=== PATIENT | male | born 1965 | race Caucasian/White ===

== ENCOUNTER → 2017-12-28 08:55 | Outpatient (CLI) | payer MEDICARE, SELFPAY ==
[2017-12-28] VITALS (10 sets, daily range): BP systolic 136–157; BP diastolic 55–94; PULSE 94–104; RESP 11–20; O2SAT 92–97; BMI 31.3
--- NOTE | 2017-12-28 | LUNB_PTH ---
PATIENT: PATIENCE DEVINE LOC: CT U#:[id number] AGE/SX: 60/M ROOM: RE12/28/[address]: Dr. Zurdo Esparza MD : 1965 BED: DIS: SPEC #: [id number] RECD: 12/28/17 11:14 STATUS: COLUMBA LUBIN #: [id number] CHARITY: 12/28/17 00:[address]: Zurdo Esparza DEPT: SURGICAL PATHOLOGY RECD BY: Lito Waddell Tissues: Lung, NOS Procedures: Surgery Specimen Level IV Diff Quik Stain (control) HEADER OPERATION: CT guided left lung biopsy PRE-OP DIAGNOSIS: TARIK lung mass TISSUE SUBMITTED: 20 gauge core x3 MICROSCOPIC DIAGNOSIS Left upper lobe lung mass, CT guided core biopsy: Fragments of fibrous tissue with acute and chronic granulomatous inflammation. Special stains for acid fast bacilli and fungi are negative for organisms; matched controls are appropriate. 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 See comment. SJ:deborah 12/30/17 COMMENT The specimen is evaluated at the time of CT by Dr. Burns. Immediate Evaluation #1= Negative for malignant cells. Immediate Evaluation #2= Atypical cells, noted suspicious for small cell carcinoma. Atypical cells are noted only in the touch imprints prepared at time of core biopsy. Core biopsy fragments do not reveal any malignant cells. Immunohistochemistry ([id number]) supports the above diagnosis. Case has been reviewed in consultation with Dr. Holliday who concurs with the above diagnosis. IDC:AM MICROSCOPIC DESCRIPTION Slides are reviewed. GROSS DESCRIPTION Received in fixative is one container labeled with the patient's name and designated TARIK mass. The specimen consists of multiple cores of tissue ranging from 1 mm in length down to 0.5 cm in length, and they are 0.1 cm in diameter. The specimen is totally submitted in one cassette. Two touch imprints are prepared at the time of core biopsy. SAAD:deborah 12/27/17 TC:0 CPT:72824, 00186, 05982
--- NOTE | 2017-12-28 | IMM_PTH ---
PATIENT: PATIENCE DEVINE LOC: CT U#:[id number] AGE/SX: 60/M ROOM: RE12/28/[address]: Dr. Zurdo Esparza MD : 1965 BED: DIS: SPEC #: [id number] RECD: 12/29/17 11:47 STATUS: COLUMBA LUBIN #: [id number] CHARITY: 12/28/17 00:[address]: Zurdo Esparza DEPT: IMMUNOHISTOCHEMISTRY RECD BY: Sharad Ontiveros Tissues: Left upper lobe of lung, NOS Procedures: Synapto (add) RCC (add) NAPSIN A (add) CD56 (add) CHROMO (add) CK20 (add) CK8 (add) HEP PAR (add) TTF1 (add) CK7 (initial) PHYSICIAN & INSTITUTION [place] [id number] SPECIMEN INFORMATION: Tissue Source: CT guided TARIK lung biopsy Clinical Info: TARIK lung mass Specimen Number: [id number] CPT code: 05600, 46288m3 METHODOLOGY: Deparaffinized sections of prefer/formalin-fixed tissue or PAP/DQ stained slides are incubated with monoclonal/polyclonal antibodies/oligonucleotide probes. Localization is made via biotin free immunoperoxidase method. Appropriate controls are performed and reacted as expected. Results on target cell population are indicated in the following table: RESULTS: ANTIBODY / CLONE RESULT CK7 (OV-TL12/30) negative CK8 (30wicmX64) negative CK20 (KS20.8) negative CD56 (123C3.D5) negative Chromo (LK2H10) negative Synapto (polyclonal) negative TTF-1 (8G7G3/1) negative Napsin A (Rabbit Polyclonal) negative HepPar (OCh1E5) negative RCC (PN-15) negative These tests were developed and their performance characteristics determined by [facility]. They may not have been cleared or approved by the U.S. Food and Drug Administration. The FDA has determined that such clearance or approval is not necessary. INTERPRETATION: CT guided TARIK lung mass: Fragments of fibrous tissue. Negative for malignancy. SJ:stan 12/30/17
--- NOTE | 2017-12-28 09:14 | CT_ITS ---
PROCEDURE: CT GUIDED CORE NEEDLE BIOPSY OF A left apical LUNG LESION INDICATION: Male, 52 years old. Mass in the apical aspect of the left upper lobe. PHYSICIAN: Dr. Geovani BINGHAM CONSENT: Written informed consent was obtained having explained the risks, benefits and alternatives in detail with the patient who accepted the risks and agreed to proceed. Laboratory review and clinical assessment was performed. CONSCIOUS SEDATION PROTOCOL: The Drugs used were: 2 mg Versed, IV., and 100 mcg Fentanyl, IV. The sedation time was: 21 minutes. Conscious sedation was started at 10:46 AM and terminated at 10:47 AM. The conscious sedation protocol was independently monitored. RADIATION DOSAGE (If Supplied By Facility): CTDIvol = ( 17 ) mGy, DLP = ( 418.02 ) mGycm Individualized dose optimization techniques were used for this CT. TECHNIQUE: The patient was placed in the prone position. A noncontrast CT was performed to localize the lesion in the left lung apex . The skin surface was prepped and draped in a sterile fashion. 1% lidocaine was used for local anesthesia. Using CT guidance, a 19-gauge coaxial biopsy device was advanced to the periphery of the lesion. A total of 4 core specimens were obtained. The specimens were placed in a formalin solution. A post procedure CT demonstrated no adverse sequelae or pneumothorax. The patient tolerated the procedure well without adverse event. A negative biopsy does not exclude malignancy. Further imaging or clinical followup based on patient condition and degree of clinical suspicion for malignancy. Suggest rebiopsy, if biopsy results do not match with clinical scenario. CT/Biopsy/Inj or Needle Placement IMPRESSION: 1. CT directed core needle biopsy of the left apical pulmonary lesion using CT image guidance with image documentation as described. Pathology results are pending. 2. Conscious Sedation protocol utilized with independent monitoring. Electronically Signed: Baljinder Olivo MD at 11:18 EDT Tel [phone], Service support ,
[2017-12-28 09:32] LABS: Platelet Count 527 K/mm3 (150-450)
[2017-12-28 09:41] LABS: Partial Thromboplast Time 33.2 Seconds (24.1-36.2)
--- NOTE | 2017-12-28 10:44 | RAD_ITS ---
STUDY: X-RAY CHEST REASON FOR EXAM: Male, 52 years old. Immediate post left lung biopsy radiograph. TECHNIQUE: AP inspiration expiration views. COMPARISON: Comparison is made with prior study dated 08/17/2016. FINDINGS: The patient is status post left apical lung biopsy. There is no evidence of pneumothorax. Persistent mass is seen in the left apex. RAD/Chest Insp/Exp 2 View IMPRESSION: No evidence of pneumothorax on the immediate post left lung biopsy radiograph. Electronically Signed: Baljinder Olivo MD at 11:30 EDT Tel [phone], Service support ,
--- NOTE | 2017-12-28 12:50 | RAD_ITS ---
STUDY: X-RAY CHEST REASON FOR EXAM: Male, 52 years old. Lower post left lung biopsy radiograph. TECHNIQUE: AP inspiration and expiration views were obtained. COMPARISON: Comparison is made with prior study done earlier today. FINDINGS: There is no evidence of pneumothorax on the delayed post left lung biopsy. Left apical mass. RAD/Chest Insp/Exp 2 View IMPRESSION: No evidence of pneumothorax on the 2 hour delayed post left lung biopsy radiograph. Electronically Signed: Baljinder lOivo MD at 14:14 EDT Tel [phone], Service support ,
== END ==
PROVIDERS: Family Provider Internal Medicine; PCP Internal Medicine; Visit Provider Internal Medicine
DX: R91.8 Other nonspecific abnormal finding of lung field (principal); R07.89 Other chest pain; E11.9 Type 2 diabetes mellitus without complications; I10 Essential (primary) hypertension
CPT/HCPCS: 32405; 36415; 71046; 77012; 85049; 85610; 85730; 88305; 88341; 88342; 99156; 99157; J7040; A4216

== ENCOUNTER → 2018-05-23 12:13 | Outpatient (CLI) | payer MEDICARE, SELFPAY ==
[2017-12-28 10:10] VITALS: BMI 31.3
[2018-05-23 12:27] LABS: Absolute Lymphocyte Count 0.38 X10^3/ul (0.83-4.51); Absolute Neutrophil Count 4.8 X10^3/uL (2.0-7.7); Basophil# 0.04 X10^3/uL; Basophil% 0.7 % (0-1); Eosinophil# 0.18 X10^3/uL; Eosinophils% 3.1 % (0-5); Hematocrit 33.9 % (40-54); Hemoglobin 11.2 g/dl (13.0-16.5); Lymphocyte # 0.38 X10^3/ul (4.0); Lymphocyte % 6.5 % (19-41); Mean Corpuscular Hgb 29.1 pg (27.0-32.0); Mean Corpuscular Volume 88.1 fL (80-94); Monocyte% 8.5 % (0-10); Neutrophil # 4.76 X10^3/uL (2.7-7.7); Neutrophil % 80.9 % (47-70); Platelet Count 307 K/mm3 (150-450); RBC Distribution Width CV 14.5 % (11.6-14.6); RBC Distribution Width SD 44.6 fl (35.1-43.9); Red Blood Count 3.85 M/mm3 (4.6-6.2); White Blood Count 5.9 K/mm3 (4.4-11.0)
[2018-05-23 12:28] LABS: Differential Indicated SCAN CRITERIA MET; POSITIVE COUNT NO; POSITIVE DIFFERENTIAL YES; POSITIVE MORPHOLOGY NO
[2018-05-23 12:59] LABS: Toxic Granulation RARE
== END ==
PROVIDERS: PCP Internal Medicine; Visit Provider Internal Medicine Hematology & Oncology
DX: C34.92 Malignant neoplasm of unspecified part of left bronchus or lung (principal)
CPT/HCPCS: 85025

== ENCOUNTER → 2019-01-25 | Outpatient (CLI) | payer MEDICARE, SELFPAY ==
[2019-01-25] VITALS (7 sets, daily range): BP systolic 127–154; BP diastolic 72–84; PULSE 90–107; RESP 15–16; TEMP 36.4–36.9; O2SAT 98–100; BMI 25.3
== END | disposition home or self-care (01) ==
LOC: MEDOUTP 08:11
PROVIDERS: Family Provider Internal Medicine; PCP Internal Medicine; Referring Provider Internal Medicine Hematology & Oncology; Visit Provider Internal Medicine Hematology & Oncology
DX: Z51.89 Encounter for other specified aftercare (principal); C34.92 Malignant neoplasm of unspecified part of left bronchus or lung; D64.81 Anemia due to antineoplastic chemotherapy
CPT/HCPCS: 36430; 86850; 86900; 86920; 86922; J7040; P9016; A4216

== ENCOUNTER 2019-08-25 11:08 | Emergency (ER) | payer MEDICARE, SELFPAY ==
[2019-01-25 08:28] VITALS: BMI 25.3
[2019-08-25 11:12] VITALS: BP 113/69; PULSE 109; RESP 18; TEMP 36.4; O2SAT 99; BMI 27.8
--- NOTE | 2019-08-25 12:13 | EKG12_ITS ---
Test Reason : SYNCOPE Blood Pressure : / mmHG Vent. Rate : 092 BPM Atrial Rate : 092 BPM P-R Int : 168 ms QRS Dur : 084 ms QT Int : 380 ms P-R-T Axes : 032 064 065 degrees QTc Int : 469 ms Normal sinus rhythm Normal ECG Confirmed by MIRIAN BINGHAM, TAMMI ([id number]), legal editor REED FLORES ([id number]) on 08/28/2019 2:04:52 PM Referred By: KADI Confirmed By:ISA VELA MD
--- NOTE | 2019-08-25 12:31 | CT_ITS ---
STUDY: CT CERVICAL SPINE WITHOUT CONTRAST REASON FOR EXAM: Male, 54 years old. MULTIPLE SYNCOPAL EPISODES/HX LUNG CA/RT RIB AND NECK PAIN RADIATION DOSAGE (If Supplied By Facility): CTDIvol = ( 26.05 ) mGy, DLP = ( 469.86 ) mGycm TECHNIQUE: High resolution transaxial imaging was performed without contrast material. Sagittal and coronal images were reconstructed. Individualized dose optimization techniques were used for this CT. COMPARISON: None FINDINGS: Normal craniovertebral junction. Normal anterior atlantoaxial articulation. Normal odontoid process. There is straightening of the normal cervical lordosis. Normal vertebral bodies and posterior osseous elements. C2-3: Normal endplates. Normal disc height and morphology. Normal central canal and intervertebral neuroforamina. C3-4: Normal endplates. Normal disc height and morphology. Normal central canal and intervertebral neuroforamina. C4-5: Marked degree of disc space narrowing with spondylosis. Uncovertebral arthrosis. Mild degree of central canal stenosis due to the posterior spondylosis worse on the right side with the bilateral neural foraminal stenosis worse on the right side. C5-6: Marked degree of disc space narrowing and spondylosis. Uncovertebral arthrosis. Mild degree of bilateral neural foraminal stenosis. C6-7: Normal endplates. Normal disc height and morphology. Normal central canal and intervertebral neuroforamina. C7-T1: Normal endplates. Normal disc height and morphology. Normal central canal and intervertebral neuroforamina. Atherosclerotic calcification of the carotid bifurcations bilaterally. Bullous changes in the right upper lobe. Soft tissue prominence in the left upper lobe. CT/Spine Cervical without Contras IMPRESSION: Multilevel degenerative changes, as described above. Electronically Signed: Baljinder Olivo, at 13:26 EST , Service support ,
--- NOTE | 2019-08-25 12:31 | CT_ITS ---
STUDY: CT BRAIN WITHOUT CONTRAST REASON FOR EXAM: Male, 54 years old. MULTIPLE SYNCOPAL EPISODES/HX LUNG CA/RT RIB AND NECK PAIN RADIATION DOSAGE (If Supplied By Facility): CTDIvol = ( 44.99 ) mGy, DLP = ( 829.85 ) mGycm TECHNIQUE: Transaxial CT imaging of the brain was performed without administration of intravenous contrast material. Individualized dose optimization techniques were used for this CT. COMPARISON: No relevant priors. FINDINGS: Normal soft tissue structures. Normal calvarium. There is mild cerebral atrophy with widening of the extra-axial spaces and ventricular dilatation. There are areas of decreased attenuation within the white matter tracts of the supratentorial brain, consistent with microvascular disease changes. Tiny lacuna is seen in the posterior limb of the left internal capsule. Normal brainstem. Normal cerebellum. There is no intracranial hemorrhage. There are no findings of an acute ischemic infarction. Mild degree of mucosal thickening of the ethmoid sinuses slightly more prominent along the posterior aspect of the left ethmoid sinus. CT/Brain/Head without Contrast IMPRESSION: Chronic involutional changes of the brain. Tiny lacunar is seen in the posterior limb of the left internal capsule. Electronically Signed: Baljinder Olivo, at 13:25 EST , Service support ,
--- NOTE | 2019-08-25 12:31 | CT_ITS ---
STUDY: CTA CHEST REASON FOR EXAM: Male, 54 years old. Multiple syncopal episodes. Hx of lung cancer. Rt rib and neck pain RADIATION DOSAGE (If Supplied By Facility): CTDIvol = ( 14.12 ) mGy, DLP = ( 1356.43 ) mGycm TECHNIQUE: The examination was performed with the intravenous administration of [id number] 100ml. Post-processing of the angiographic images was performed, with multiplanar reformation and 3D reconstruction. Individualized dose optimization techniques were used for this CT. COMPARISON: None. FINDINGS: Normal enhancement of the main pulmonary artery and right and left pulmonary arteries. Normal enhancement of the bilateral peripheral pulmonary arteries. There is no demonstrated pulmonary embolism. There is atherosclerotic calcification of the aortic arch with tortuosity. There is no demonstrated aortic dissection. Minimal anterior pericardial thickening. Normal mediastinum. Normal hilar regions. Normal visualized trachea and bronchi. Emphysematous changes seen in the right upper lobe. There is evidence of dense inhomogeneous consolidation in the right upper lobe. Cystic spaces are seen suggestive of bronchiectasis. With the patient''s history of lung cancer, this may represent post radiation changes with possible recurrence in the left upper lobe. Tiny right pleural effusion. Normal chest wall structures. There are degenerative changes of thoracic spine. Normal visualized upper abdomen. 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 Mild degree of emphysematous changes. Electronically Signed: Baljinder Olivo, at 13:43 EST , Service support ,
[2019-08-25 12:34] LABS: Absolute Lymphocyte Count 0.43 X10^3/uL (0.83-4.51); Absolute Neutrophil Count 3.9 X10^3/uL (2.0-7.7); Basophil# 0.02 X10^3/uL; Basophil% 0.4 % (0-1); Eosinophil# 0.04 X10^3/uL; Eosinophils% 0.8 % (0-5); Hematocrit 32.4 % (40-54); Lymphocyte # 0.43 X10^3/ul (4.0); Lymphocyte % 8.1 % (19-41); Mean Corpuscular Hgb 36.4 pg (27.0-32.0); Mean Corpuscular Volume 107.3 fL (80-94); Mean Platelet Vol. 10.8 fl (6.2-12.0); Monocyte# 0.73 X10^3/uL; Monocyte% 13.8 % (0-10); NRBC Flagged by Analyzer 0 % (0-5); Neutrophil # 3.85 X10^3/uL (2.7-7.7); Neutrophil % 72.6 % (47-70); POSITIVE DIFFERENTIAL YES; Platelet Count 251 K/mm3 (150-450); RBC Distribution Width CV 15.4 % (11.6-14.6); RBC Distribution Width SD 59.1 fl (35.1-43.9); Red Blood Count 3.02 M/mm3 (4.6-6.2); White Blood Count 5.3 K/mm3 (4.4-11.0)
[2019-08-25 12:35] LABS: Differential Indicated SCAN CRITERIA MET
--- NOTE | 2019-08-25 12:36 | CT_ITS ---
STUDY: CT ABDOMEN AND PELVIS WITHOUT CONTRAST REASON FOR EXAM: Male, 54 years old. Multiple syncopal episodes. Hx of lung cancer. Rt rib and neck pain RADIATION DOSAGE (If Supplied By Facility): CTDIvol = ( 14.12 ) mGy, DLP = ( 1356.43 ) mGycm TECHNIQUE: Transaxial images were obtained from the dome of the diaphragm to the symphysis pubis without oral contrast, and without intravenous contrast. Sagittal and coronal images were reconstructed. Individualized dose optimization techniques were used for this CT. COMPARISON: None. FINDINGS: Minimal degree of increased markings at the right lung base suggestive of a possible atelectasis. Minimal anterior pericardial thickening. Normal liver. Normal gallbladder and extrahepatic biliary system. Normal spleen. Normal pancreas. Normal bilateral adrenal glands. Normal right kidney. There is a 1 cm cyst in the anterior midportion of the left kidney. Normal visualized stomach. Normal small intestine. Mildly distended fluid-filled small bowel loops in the center right half of the abdomen with the increased markings in the root of the mesentery. Localized inflammation should be ruled out. The appendix is visualized and appears normal. There is diffuse atherosclerotic calcification of the abdominal aorta and its major visceral branches, without a demonstrated aneurysm. Normal inferior vena cava. There is borderline retroperitoneal lymphadenopathy with enlarged nodes no greater than 10mm in the short axis diameter. There is a markedly distended urinary bladder. Minimal amount of fluid is seen in the right hemipelvis. There is a small umbilical hernia containing fat. Small right inguinal hernia containing fat. There are mild degenerative changes of the visualized lumbar spine. CT/Abdomen/Pelvis W IV Cont ONLY IMPRESSION: Nonspecific increased markings in the root of the mesentery with the mildly fluid distended small bowel loops in the center right half of the abdomen. Localized inflammatory changes to be ruled out. Markedly distended urinary bladder. Electronically Signed: Baljinder Olivo, at 13:39 EST , Service support ,
--- NOTE | 2019-08-25 12:37 | ED.VIS.GEN ---
History of Present Illness Chief Complaint: Syncope Informant: Patient Narrative: Patient presents to the emergency department after being seen at urgent care and referred here. He had a syncopal episode on Wednesday. He went to his doctor is felt to be orthostatic hypotension as he has had episodes like this in the past. He notes pain in the low back pain in the right side of his neck right anterior chest. He also notes bilateral abdominal side pain. That is worse with movement. No hematuria. No vomiting. He does not really remember what happened but states that he was going to the kitchen and fell hitting the chair. He is currently undergoing chemotherapy treatment every [address] Harper. Last treatment was about 1.5 weeks ago. He denies being on a blood thinner. No history of pulmonary embolism. Past Medical History - Allergies and Home Meds Allergies/Adverse Reactions: Allergies No Known Allergies Allergy (Verified 08/25/19 11:09) Primary Care Physician: Zurdo Esparza MD [Primary Care Provider] - Smoking Status: Current every day smoker Review of Systems General: Denies: Chills, Fever, Sweats Eyes: Denies: Visual changes - bilaterally, Diplopia ENT: Denies: Rhinorrhea, Sore throat Cardiovascular: Reports: Chest pain, - - Syncope . Denies: Palpitations Respiratory: Denies: Dyspnea, Cough, Dyspnea on exertion Gastrointestinal: Reports: Abdominal pain. Denies: Nausea, Vomiting, Diarrhea, Melena, Hematochezia Genitourinary: Denies: Dysuria, Hematuria, Frequency Musculoskeletal: Reports: Neck pain, Back pain. Denies: Extremity Pain Skin: Denies: Rash, Wounds Neurological: Denies: Headache, Weakness, Numbness Physical Exam Vital Signs/Narrative: Vital Signs Temp Pulse Resp BP Pulse Ox 08/25/19 11:12 97.5 F L 109 H 18 113/69 99 General: Well nourished, Well developed, No Acute Distress Head: Normocephalic, Atraumatic Eyes: Perrl, EOMI ENT: Moist mucous membranes, No rhinorrhea Neck: Supple, - - Patient has tenderness palpation over the right aspect of his neck to the midline. No symptoms on the left. Cardiovascular: Regular rate, No murmurs, Tachycardia Respiratory: No distress, CTA bilaterally, Chest tenderness - Right anterior chest wall is tender to palpation. No crepitance. Abdomen: Soft, Nondistended, Normal bowel sounds, Tender - Mild tenderness palpation over the right and left lateral mid axillary abdominal wall Back: Normal Inspection, - - Patient has both midline and paraspinal musculature tenderness in the upper lumbar region Extremities: Nontender, No edema Skin: Normal color, No rash Neurological: Alert, Oriented x3, Cranial nerves II-XII grossly intact, Normal Strength, Normal Sensation Psychological: Normal affect, Normal Mood Diagnostic/Tx/Re-eval - EKG Initial EKG Interpretation: Sinus Rhythm - EKG demonstrates a normal sinus rhythm at a rate of 92. There is no ectopy. No concerning features of ACS. - Medical Decision Making Basic labs were negative. CT of the head and neck did not demonstrate any acute process. CTA chest does not demonstrate any pulmonary embolism or obvious rib fracture. Please see radiologist read for details. CT the abdomen pelvis demonstrates an L1 compression fracture. As this is where the patient hurts after his fall think this most likely acute. See the radiologist read for details. As he is otherwise eating and drinking fine his labs look good I do not think that there is any acute intra-abdominal process going. The patient will receive a dose of Toradol here. I will write for him to have Valium as a muscle relaxant and pain medication at home. Follow-up with primary care. ED Disposition - Plan for ED Patient: Disposition: Home or Assisted Living Diagnosis: Cervical muscle strain, Chest wall contusion, Compression fracture of L1 lumbar vertebra Instructions: FRACTURE, Vertebral Compression Prescriptions: Oxycodone HCl/Acetaminophen [Percocet 5/325] 1 tablet PO Q6H PRN PRN 3 Days #12 tablet PRN Reason: Pain Transmission Status: Received by [id number] Diazepam [Valium] 5 mg PO Q8 PRN #15 tablet PRN Reason: Muscle Spasm Transmission Status: Received by [id number] Referrals: Zurdo Esparza MD [Primary Care Provider] - 1 Week
[2019-08-25 12:47] LABS: ALB/GLOB Ratio 0.5 RATIO (0.9-2.4); AST(SGOT) 20 U/L (15-37); Alanine Aminotransfer ALT/SGPT 19 U/L (16-61); Albumin, Serum 2.7 g/dL (3.2-5.0); Alkaline Phosphatase 105 U/L (45-117); Anion Gap 7 (5-15); BUN 7 mg/dL (7-18); Calcium,Total 8.5 mg/dL (8.5-10.1); Chloride 103 mmol/L (98-107); Creatinine, Serum 1.17 mg/dL (0.70-1.30); EST Glomerular Filtration Rate 68 mL/min (>60); Est Glom Filt Rate - Afr Amer 83 mL/min (>60); Estimated Creatinine Clearance 65.91 ml/min; Glucose 117 mg/dL (74-106); Potassium 3.9 mmol/L (3.5-5.1); Protein, Total 7.7 g/dL (6.4-8.2); Sodium Level 135 mmol/L (136-145)
[2019-08-25 15:00] VITALS: BP 116/77; PULSE 98; RESP 16; O2SAT 94
[2019-08-25] MEDS: Ketorolac 60 MG/2 ML Vial IM (15:33)
[2019-08-25 15:36] VITALS: BP 105/74; PULSE 102; RESP 20; O2SAT 95
== END 2019-08-25 16:08 | disposition home or self-care (01) ==
PROVIDERS: Emergency Provider Emergency Medicine; PCP Internal Medicine
DX: S16.1XXA Strain of muscle, fascia and tendon at neck level, initial encounter (principal); S20.211A Contusion of right front wall of thorax, initial encounter; S32.019A Unspecified fracture of first lumbar vertebra, initial encounter for closed fracture; R55 Syncope and collapse; W19.XXXA Unspecified fall, initial encounter; Y93.9 Activity, unspecified; Y92.9 Unspecified place or not applicable; Z79.899 Other long term (current) drug therapy; F17.200 Nicotine dependence, unspecified, uncomplicated
CPT/HCPCS: 70450; 71275; 72125; 74177; 80053; 84484; 85025; 93005; 96372; 99284; Q9967; A4216

== ENCOUNTER 2019-10-09 10:27 | Inpatient (IN) | payer MEDICARE, MEDICAID, SELFPAY ==
[2019-10-09] VITALS (25 sets, daily range): BP systolic 97–132; BP diastolic 60–83; PULSE 95–119; RESP 16–28; TEMP 36.3–37.1; O2SAT 90–100; BMI 26.7; BMI 26.4
--- NOTE | 2019-10-09 10:39 | EKG12_ITS ---
Test Reason : SYNCOPE Blood Pressure : / mmHG Vent. Rate : 099 BPM Atrial Rate : 099 BPM P-R Int : 160 ms QRS Dur : 074 ms QT Int : 408 ms P-R-T Axes : 028 071 076 degrees QTc Int : 523 ms Normal sinus rhythm Low voltage QRS ( limb leads) Nonspecific ST abnormality Prolonged QT Abnormal ECG Confirmed by ARTUR BINGHAM, LELA ([id number]), clinical editor FAVIO WADE ([id number]) on 10/10/2019 1:26:44 PM Referred By: REBECCA Confirmed By:LELA SIDDIQUI MD
--- NOTE | 2019-10-09 10:39 | CT_ITS ---
STUDY: CT BRAIN WITHOUT CONTRAST REASON FOR EXAM: Male, 54 years old. PT STATED FALL TODAY RADIATION DOSAGE (If Supplied By Facility): CTDIvol = ( 60.81 ) mGy, DLP = ( 1089.89 ) mGycm TECHNIQUE: Transaxial CT imaging of the brain was performed without administration of intravenous contrast material. Individualized dose optimization techniques were used for this CT. COMPARISON: Comparison is made with prior study dated August 25, 2019. FINDINGS: Normal soft tissue structures. Normal calvarium. There is mild cerebral atrophy with widening of the extra-axial spaces and ventricular dilatation. There are areas of decreased attenuation within the white matter tracts of the supratentorial brain, consistent with microvascular disease changes. Stable tiny lacunae in the posterior limb of the left internal capsule. Normal brainstem. Normal cerebellum. There is no intracranial hemorrhage. There are no findings of an acute ischemic infarction. Mucosal thickening of the lateral aspects of the maxillary sinuses bilaterally as well as the posterior left ethmoid sinus. CT/Brain/Head without Contrast IMPRESSION: Chronic involutional changes of the brain. Stable examination. Electronically Signed: Baljinder Olivo, at 11:34 EDT , Service support ,
--- NOTE | 2019-10-09 10:40 | RAD_ITS ---
STUDY: X-RAY CHEST REASON FOR EXAM: Male, 54 years old. Passed out while standing today, no warning. Right hip pain with slight shortening and rotation TECHNIQUE: Single AP portable view of the chest. COMPARISON: None. FINDINGS: EKG electrodes are seen. Consolidation in the left lung apex. This may represent either pneumonic infiltration versus mass lesion. Correlation with a CT scan is recommended. There is no demonstrated pleural abnormality. Normal size heart. Normal mediastinum and [place]. Normal visualized pulmonary arteries. Normal visualized aortic arch and descending thoracic aorta. There are diffuse degenerative changes of the visualized thoracic spine. Normal visualized ribs, clavicles, and shoulders. There is no demonstrated abnormality of the visualized soft tissue structures of the upper abdomen. RAD/Chest 1 View (Portable) IMPRESSION: Consolidation in the left apex. This may represent either pneumonic infiltration versus a mass lesion. CT scan is recommended. Electronically Signed: Baljinder Olivo, at 11:40 EDT , Service support ,
--- NOTE | 2019-10-09 10:40 | RAD_ITS ---
STUDY: X-RAY - PELVIS AND RIGHT HIP REASON FOR EXAM: Male, 54 years old. Passed out while standing today, no warning. Right hip pain with slight shortening and rotation TECHNIQUE: 3 views of the pelvis and hip. COMPARISON: None. FINDINGS: There is a non-specific bowel gas pattern. Normal visualized soft tissue structures. Normal bilateral iliac wings, sacroiliac joints and visualized sacrum. Normal bilateral superior and inferior pubic rami. Normal pubic symphysis. Normal bilateral ischial tuberosities. Transverse right basilar cervical fracture of the right femoral neck with cephalic migration of the distal femoral component. RAD/HIP, UNI W/ Pelvis 2-3 Views IMPRESSION: Transverse fracture of the basilar cervical region of the right femoral neck with cephalic migration of the distal fracture fragment. Electronically Signed: Baljinder Olivo, at 11:39 EDT , Service support ,
--- NOTE | 2019-10-09 10:43 | ED.DCSUM_ITS ---
History of Present Illness Chief Complaint: Syncope Informant: Patient Onset: Today Context: Sudden Onset Timing: Continuous Current Severity: Moderate Maximum Severity: Moderate Narrative: The patient is a 54-year-old male with medical history significant for smoking, active lung cancer, diabetes, and behavioral issues who presents to the emergency department after syncopal episode. Patient states he has a history of recurrent syncope. He states that he was getting up out of his chair quickly. He was walking across his living room and then passed out. He states normally, he ambulates with a cane or walker but was not using it. He fell to the ground landing on his right hip. He does not think he struck his head. He is complaining of some pain in his low back and in his right hip. He was unable to get himself up after the fall. He is not on anticoagulants. Prior similar symptoms: Yes Recent Illness/Hospitalization: Yes Past Medical History - Allergies and Home Meds Allergies/Adverse Reactions: Allergies No Known Allergies Allergy (Verified 10/09/19 10:36) Prior records reviewed: Yes Past Medical History: - - lung ca, dm, htn, compression fracture l1 Surgical History: noncontributory Smoking Status: Current every day smoker Review of Systems General: Denies: Chills, Fever, Sweats Eyes: Denies: Visual changes - bilaterally, Diplopia ENT: Denies: Rhinorrhea, Sore throat Cardiovascular: Denies: Chest pain, Palpitations Respiratory: Denies: Dyspnea, Cough, Dyspnea on exertion Gastrointestinal: Denies: Abdominal pain, Nausea, Vomiting, Diarrhea, Melena, Hematochezia Genitourinary: Denies: Dysuria, Hematuria, Frequency Musculoskeletal: Reports: Back pain. Denies: Extremity Pain Skin: Denies: Rash, Wounds Neurological: Reports: Weakness. Denies: Headache, Numbness Psych: Denies: Depression Endocrine: Denies: Polyuria Physical Exam Vital Signs/Narrative: Vital Signs Temp Pulse Resp BP Pulse Ox 10/09/19 10:28 98.7 F 98 17 98/62 95 Inital Vital Signs reviewed: Yes General: Well nourished, Well developed, No Acute Distress Head: Normocephalic, Atraumatic Eyes: Perrl, EOMI ENT: Moist mucous membranes, No rhinorrhea Neck: Supple, Nontender Cardiovascular: Regular rate, Regular rhythm, No murmurs Respiratory: No distress, CTA bilaterally, Chest nontender Abdomen: Soft, Nontender, Nondistended, Normal bowel sounds Back: Normal Inspection Extremities: No edema, Tenderness Skin: Normal color, No rash Neurological: Alert, Oriented x3, Cranial nerves II-XII grossly intact, Normal Strength, Normal Sensation Psychological: Normal affect, Normal Mood Diagnostic/Tx/Re-eval Clinical Impression(s) from Imaging Studies Brain CT 10/09/19 10:39 IMPRESSION: Chronic involutional changes of the brain. Stable examination. Electronically Signed: Baljinder Olivo, at 11:34 EDT , Service support , Chest X-Ray 10/09/19 10:40 IMPRESSION: Consolidation in the left apex. This may represent either pneumonic infiltration versus a mass lesion. CT scan is recommended. Electronically Signed: Baljinder Olivo, at 11:40 EDT , Service support , Hip/Pelvis X-Ray 10/09/19 10:40 IMPRESSION: Transverse fracture of the basilar cervical region of the right femoral neck with cephalic migration of the distal fracture fragment. Electronically Signed: Baljinder Olivo, at 11:39 EDT , Service support , Abnormal Lab Results 10/09/19 10/09/19 10/09/19 10:54 10:54 10:54 WBC Cancelled Corrected WBC Cancelled RBC Cancelled Hgb Cancelled Hct Cancelled MCV Cancelled MCH Cancelled MCHC Cancelled RDW Std Deviation Cancelled RDW Coeff of Sophie Cancelled Plt Count Cancelled MPV Cancelled Immature Gran % (Auto) Cancelled Neut % (Auto) Cancelled Lymph % (Auto) Cancelled Brown % (Auto) Cancelled Eos % (Auto) Cancelled Baso % (Auto) Cancelled Absolute Neuts (auto) Cancelled Absolute Lymphs (auto) Cancelled Total Counted Cancelled Neutrophils % (Manual) Cancelled Band Neutrophils % Cancelled Lymphocytes % (Manual) Cancelled Monocytes % (Manual) Cancelled Eosinophils % (Manual) Cancelled Basophils % (Manual) Cancelled Metamyelocytes % Cancelled Myelocytes % Cancelled Promyelocytes % Cancelled Blast Cells % Cancelled Plasma Cell % (Manual) Cancelled Other Cells % Cancelled Nucleated RBC % Cancelled Nucleated RBCs/100 WBC Cancelled Differential Comment Cancelled Diff Path Review Cancelled Hypersegmented Neuts Cancelled Atypical Lymphocytes Cancelled Reactive Lymphocytes Cancelled Smudge Cells Cancelled Toxic Granulation Cancelled Toxic Vacuolation Cancelled Dohle Bodies Cancelled Roxana Rods Cancelled Platelet Estimate Cancelled Plt Morphology Comment Cancelled RBC Morphology Cancelled Polychromasia Cancelled Hypochromasia Cancelled Poikilocytosis Cancelled Basophilic Stippling Cancelled Anisocytosis Cancelled Microcytosis Cancelled Macrocytosis Cancelled Spherocytes Cancelled Sickle Cells Cancelled Target Cells Cancelled Tear Drop Cells Cancelled Ovalocytes Cancelled Stomatocytes Cancelled Lala-[place] Bodies Cancelled Danica Cells Cancelled Bite Cells Cancelled Crenated Cell Cancelled Acanthocytes (Spur) Cancelled Rouleaux Cancelled Schistocytes Cancelled PT Cancelled INR Cancelled APTT Sodium Cancelled Potassium Cancelled Chloride Cancelled Carbon Dioxide Cancelled Anion Gap Cancelled BUN Cancelled Creatinine Cancelled Estim Creat Clear Calc Cancelled Est GFR (MDRD) Af Amer Cancelled Est GFR (MDRD) Non-Af Cancelled BUN/Creatinine Ratio Cancelled Glucose Cancelled Calcium Cancelled Total Bilirubin Cancelled AST Cancelled ALT Cancelled Alkaline Phosphatase Cancelled Troponin I Cancelled Total Protein Cancelled Albumin Cancelled Globulin Cancelled Albumin/Globulin Ratio Cancelled Blood Type Antibody Screen Crossmatch 10/09/19 10/09/19 10/09/19 10:54 12:00 12:00 WBC 5.4 Corrected WBC RBC 1.72 L Hgb 6.5 L Hct 18.6 L MCV 108.1 H MCH 37.8 H MCHC 34.9 RDW Std Deviation 61.1 H RDW Coeff of Sophie 15.7 H Plt Count 65 L MPV 11.5 Immature Gran % (Auto) 1.500 H Neut % (Auto) 86.3 H Lymph % (Auto) 5.9 L Brown % (Auto) 6.3 Eos % (Auto) 0.0 Baso % (Auto) 0.0 Absolute Neuts (auto) 4.7 Absolute Lymphs (auto) 0.32 L Total Counted Neutrophils % (Manual) Band Neutrophils % Lymphocytes % (Manual) Monocytes % (Manual) Eosinophils % (Manual) Basophils % (Manual) Metamyelocytes % Myelocytes % Promyelocytes % Blast Cells % Plasma Cell % (Manual) Other Cells % Nucleated RBC % 0 Nucleated RBCs/100 WBC Differential Comment Diff Path Review Hypersegmented Neuts Atypical Lymphocytes Reactive Lymphocytes Smudge Cells Toxic Granulation Toxic Vacuolation Dohle Bodies Roxana Rods Platelet Estimate MOD DEC Plt Morphology Comment RBC Morphology Polychromasia Hypochromasia 1+ Poikilocytosis Basophilic Stippling Anisocytosis Microcytosis Macrocytosis RARE Spherocytes Sickle Cells Target Cells Tear Drop Cells Ovalocytes Stomatocytes Lala-[place] Bodies Danica Cells Bite Cells Crenated Cell Acanthocytes (Spur) Rouleaux Schistocytes PT 15.7 H INR 1.3 APTT Cancelled Sodium Potassium Chloride Carbon Dioxide Anion Gap BUN Creatinine Estim Creat Clear Calc Est GFR (MDRD) Af Amer Est GFR (MDRD) Non-Af BUN/Creatinine Ratio Glucose Calcium Total Bilirubin AST ALT Alkaline Phosphatase Troponin I Total Protein Albumin Globulin Albumin/Globulin Ratio Blood Type Cancelled Antibody Screen Cancelled Crossmatch 10/09/19 10/09/19 10/09/19 12:00 12:00 12:20 WBC Corrected WBC RBC Hgb Hct MCV MCH MCHC RDW Std Deviation RDW Coeff of Sophie Plt Count MPV Immature Gran % (Auto) Neut % (Auto) Lymph % (Auto) Brown % (Auto) Eos % (Auto) Baso % (Auto) Absolute Neuts (auto) Absolute Lymphs (auto) Total Counted Neutrophils % (Manual) Band Neutrophils % Lymphocytes % (Manual) Monocytes % (Manual) Eosinophils % (Manual) Basophils % (Manual) Metamyelocytes % Myelocytes % Promyelocytes % Blast Cells % Plasma Cell % (Manual) Other Cells % Nucleated RBC % Nucleated RBCs/100 WBC Differential Comment Diff Path Review Hypersegmented Neuts Atypical Lymphocytes Reactive Lymphocytes Smudge Cells Toxic Granulation Toxic Vacuolation Dohle Bodies Roxana Rods Platelet Estimate Plt Morphology Comment RBC Morphology Polychromasia Hypochromasia Poikilocytosis Basophilic Stippling Anisocytosis Microcytosis Macrocytosis Spherocytes Sickle Cells Target Cells Tear Drop Cells Ovalocytes Stomatocytes Lala-[place] Bodies [place] Cells Bite Cells Crenated Cell Acanthocytes (Spur) Rouleaux Schistocytes PT INR APTT Sodium 132 L Potassium 3.1 L Chloride 102 Carbon Dioxide 20.0 L Anion Gap 10 BUN 12 Creatinine 1.55 H Estim Creat Clear Calc 49.75 Est GFR (MDRD) Af Amer 60 Est GFR (MDRD) Non-Af 49 L BUN/Creatinine Ratio 7.7 L Glucose 99 Calcium < 5.0 L* Total Bilirubin 0.20 AST 30 ALT 14 L Alkaline Phosphatase 95 Troponin I < 0.015 Total Protein 6.3 L Albumin 2.0 L Globulin 4.3 H Albumin/Globulin Ratio 0.5 L Blood Type O POSITIVE Antibody Screen NEGATIVE Crossmatch See Detail - Rhythm Strip Rhythm Strip: Sinus Rhythm Rate: 100 Ectopy: None - EKG Initial EKG Interpretation: Sinus Rhythm, No Acute Injury Pattern, Non-Specific ST Changes - Medical Decision Making The patient presents to the emergency department with syncopal episode. EKG was obtained. There was mildly prolonged QT but no evidence of acute ischemia. Patient was kept on a monitor. He did fall and strike his right hip. He does not recall hitting his head. The patient was sent for CT and images. On the way back, he did have a witnessed seizure. It lasted about 40 seconds with tonic-clonic movements. He was postictal after. Screening labs do show anemia which the patient has significant history of. There is also mild chronic kidney disease but rather significant hypocalcemia which can contribute to seizure. The patient was given Keppra, order 2 units of blood, and ordered IV calcium. The patient was discussed with Dr. Laguerre, who is on-call for Dr. Harper who agreed with plan. He was also discussed with Dr. Steven Shrestha, on-call for orthopedics. The patient was also discussed with intensive care and the hospitalist. He will be admitted at this time. Impression 1. New onset seizure 2. Symptomatic anemia 3. Hypocalcemia 4. Left upper lobe non-small cell lung carcinoma 5. Right basicervical hip fracture - Critical Care Time Critical care time (excluding procedures): 30-74 minutes, Discussing w/Patient &/or Family/Ticket Writer, Discussing w/Consultants, Arranging Admission or Transfer, Performing Direct Patient Care at Bedside ED Disposition - Plan for ED Patient:
[2019-10-09] MEDS: 0.9% Normal Saline 1,000 ML 1000 ML IV (10:49)
[2019-10-09] MEDS: fentaNYL 100 MCG/2 ML Ampul 50 MCG IV (10:55)
[2019-10-09] MEDS: Ondansetron 4 MG/2 ML Vial IV (10:55)
[2019-10-09] MEDS: levETIRAcetam IV 1,000 MG/100 ML BAG 400 MG IV (11:53)
[2019-10-09 12:35] LABS: Absolute Lymphocyte Count 0.32 X10^3/uL (0.83-4.51); Absolute Neutrophil Count 4.7 X10^3/uL (2.0-7.7); Hematocrit 18.6 % (40-54); Hemoglobin 6.5 g/dL (13.0-16.5); Lymphocyte # 0.32 X10^3/ul (4.0); Lymphocyte % 5.9 % (19-41); Mean Corp Hgb Conc 34.9 g/dL (32-36); Mean Corpuscular Hgb 37.8 pg (27.0-32.0); Mean Corpuscular Volume 108.1 fL (80-94); Mean Platelet Vol. 11.5 fl (6.2-12.0); Monocyte# 0.34 X10^3/uL; Monocyte% 6.3 % (0-10); NRBC Flagged by Analyzer 0 % (0-5); Neutrophil % 86.3 % (47-70); POSITIVE COUNT YES; POSITIVE DIFFERENTIAL YES; Platelet Count 65 K/mm3 (150-450); RBC Distribution Width CV 15.7 % (11.6-14.6); RBC Distribution Width SD 61.1 fl (35.1-43.9); Red Blood Count 1.72 M/mm3 (4.6-6.2); White Blood Count 5.4 K/mm3 (4.4-11.0)
[2019-10-09 12:36] LABS: Differential Indicated SCAN CRITERIA MET
[2019-10-09 12:41] LABS: International Normalized Ratio 1.3; Prothrombin Time (Protime)PT. 15.7 SECONDS (11.7-14.9)
[2019-10-09 12:50] LABS: Platelet Estimate MOD DEC (ADEQ)
[2019-10-09 12:51] LABS: Hypochromasia 1+; Macrocytosis RARE
[2019-10-09 12:58] LABS: ALB/GLOB Ratio 0.5 RATIO (0.9-2.4); AST(SGOT) 30 U/L (15-37); Alanine Aminotransfer ALT/SGPT 14 U/L (16-61); Alkaline Phosphatase 95 U/L (45-117); Anion Gap 10 (5-15); BUN 12 mg/dL (7-18); BUN/Creat Ratio 7.7 RATIO (10-20); Calcium,Total < 5.0 mg/dL (8.5-10.1); Chloride 102 mmol/L (98-107); Creatinine, Serum 1.55 mg/dL (0.70-1.30); EST Glomerular Filtration Rate 49 mL/min (>60); Est Glom Filt Rate - Afr Amer 60 mL/min (>60); Estimated Creatinine Clearance 49.75 ml/min; Globulin 4.3 g/dL (2.2-4.2); Glucose 99 mg/dL (74-106); Potassium 3.1 mmol/L (3.5-5.1); Protein, Total 6.3 g/dL (6.4-8.2); Sodium Level 132 mmol/L (136-145)
--- NOTE | 2019-10-09 13:45 | MRI_ITS ---
STUDY: MRI BRAIN WITH AND WITHOUT CONTRAST REASON FOR EXAM: Male, 54 years old. SEIZURE, LUNG CA -- new onset seizure with fall, fx''d hip, no head injury, currently on chemo for lung ca TECHNIQUE: Standardized multiplanar fat and water weighted pulse sequences were obtained. IV doteram 15ml was administered for the contrast portion of the examination. COMPARISON: CT of the brain October 09, 2019 FINDINGS: Mild atrophy and periventricular white matter ischemic change without evidence for acute infarct.. Normal bilateral basal ganglia. Normal thalami. There is no extra-axial fluid accumulation. Normal flow voids within the major intracranial circulation suggesting patency by spin echo criteria. Normal venous enhancement. There is no enhancing intra-axial or extra-axial abnormality. Empty sella deformity of uncertain clinical significance. Normal, infundibular stalk, optic chiasm and hypothalamus. Normal tectal plate and pineal gland. Normal midbrain, shanda and medulla. Normal cerebellum. Normal basal cisterns. Normal bilateral temporal bones. Normal bilateral internal auditory canals. No demonstrated orbital abnormality, within the constraints of a routine brain study. Mild diffuse maxillary and ethmoid sinus disease.. Normal calvarium and skull base. Normal visualized soft tissue structures. Normal visualized upper cervical spine. MRI/Brain W/WO Contrast IMPRESSION: Mild atrophy and periventricular white matter ischemic changes without evidence for acute infarct. No focal enhancing lesions to suggest metastatic disease. Electronically Signed: Tommy Francis MD at 19:43 EDT , Service support ,
--- NOTE | 2019-10-09 13:49 | HP.PCM_ITS ---
History of Present Illness Date of Admission: 10/09/19 Chief Complaint: syncope The patient is a 54 year old M who was in his normal state of health and then just went out. Patient had pain and presented to the emergency room and was found to have a right femoral neck fracture. While he was there he developed a tonic-clonic seizure and received Keppra. Patient has no known history of seizure disorder. Patient's oncologist Dr. Shade Franklin was notified and advised 2 units of packed red blood cells as patient's hemoglobin is 6.5+ an MRI of the brain. Patient was noted to have profound hypocalcemia with a calcium level less than 5. Patient received calcium gluconate. Dr. Castillo, of ICU, was contacted and advised to bring patient into the intensive care unit overnight to ensure that he remains stable. And Dr. Shrestha, of orthopedics was contacted and stated that he would be on board to do the surgery once patient is medically optimized. [] Past Medical History Medical History: Medical History (Last Updated 10/09/19 @ 13:[address] Héctor Billings, DO) DM2 (diabetes mellitus, type 2) E11.9 Non-small cell lung cancer C34.90 HTN (hypertension) I10 Allergies No Known Allergies Allergy (Verified 10/09/19 10:36) Home Medications: Ambulatory Orders Medication Instructions Recorded Atorvastatin Calcium [Lipitor] 40 mg PO QHS 12/15/16 Citalopram [Celexa] 40 mg PO DAILY 12/15/16 Ferrous Sulfate 325 mg PO DAILY@0800 12/27/17 Hydroxyzine HCl 25 mg PO BID PRN PRN 12/27/17 Folic Acid 1 mg PO DAILY 08/25/19 Pregabalin 300 mg PO BID 08/25/19 Diazepam [Valium] 5 mg PO Q8H PRN PRN 10/09/19 Levothyroxine [Synthroid] 75 mcg PO DAILY 10/09/19 Lisinopril [Zestril] 20 mg PO DAILY 10/09/19 Metformin HCl 1,000 mg PO DAILY 10/09/19 Omeprazole 40 mg PO DAILY 10/09/19 Ondansetron [Zofran] 8 mg PO Q8H PRN PRN 10/09/19 Oxycodone HCl/Acetaminophen 1 ea PO Q6H PRN PRN 10/09/19 [Oxycodone-Acetaminophen 5-325] Quetiapine Fumarate 400 mg PO QHS 10/09/19 traZODone [Desyrel] 50 mg PO QHS 10/09/19 Surgical History: noncontributory Smoking Status: Heavy Smoker (>10/day) Tobacco Use: Cigarettes Alcohol: Occasional Drugs: None - *Family History Maternal History Items: - - no lung cancer Review of Systems Constitutional: Denies: Anorexia, Chills, Fever, Night Sweats Eyes: Denies: Blurred vision, Double vision HEENT: Denies: Head Aches, Sinus Congestion, Sinus Drainage Cardiovascular: Denies: Chest Pain, Palpitations Respiratory: Denies: Cough, Shortness of breath at rest, Sputum production Gastrointestinal: Denies: Abdominal Pain, Nausea, Vomiting Genitourinary: Denies: Dysuria Musculoskeletal: Reports: Joint Pain - right hip pain. Denies: Joint Tenderness Skin: Denies: Rash, Wounds Neurological: Denies: Balance problems, Blurred vision, Double vision Hematologic/ Lymphatic: Denies: Easy Bruising, Easy Bleeding, Hx of blood clot Comment: All review of systems were negative except as mentioned above in the history of present illness and the other review of systems. VTE Information - Inpt Only VTE Present on Admission: No VTE Mechan Device Prophylaxis: SCD's VTE Pharm Prophylaxis ordered?: No Reason prophylaxis not ordered:: Medical Contraindication - Physical Exam Vitals/I&O's: Vital Signs Temp Pulse Resp BP Pulse Ox 37.1 C 105 H 16 97/64 90 10/09/19 10:28 10/09/19 13:00 10/09/19 13:00 10/09/19 13:00 10/09/19 13:00 Oxygen Flow Rate (L/min) 2 Oxygen Delivery Method Room Air Weight: 77.4 kg Body Mass Index (BMI) 26.7 Intake and Output for Last 24 Hours 10/07/19 10/08/19 10/09/19 23:59 23:59 23:59 Intake Total 1000 / 1000 Balance 1000 / 1000 General: Alert, Cooperative, No apparent distress, - - Appears much older than stated age HEENT: Atraumatic, PERRLA, EOMI, Normocephalic Oral: Moist Mucosa, Dry Mucosa Neck: No Nodes, Thyroid Normal Size and Texture Lungs: Clear to auscultation, Normal air movement, No rhonchi, No wheeze, No rales, Diminished Cardiovascular: Regular rate, Regular Rhythm, Normal S1, Normal S2, No murmurs Abdomen: Bowel Sounds Present, Soft, Non Tender, Non-Distended, No Hepato- splenomegaly Extremities: No edema, No Calf Tenderness, - - Right leg shorter than left Skin: No rashes, No breakdown Musculoskeletal: No Tenderness to Palpation of Joints or Extremities, No Muscle Wasting Neurological: Cranial nerves II-XII grossly intact, Motor Exam 5/5 strength throughout Psych/Mental Status: Normal Affect, Appropriate Laboratory Results 10/09/19 10:54: WBC Cancelled, Corrected WBC Cancelled, RBC Cancelled, Hgb Cancelled, Hct Cancelled, MCV Cancelled, MCH Cancelled, MCHC Cancelled, RDW Std Deviation Cancelled, RDW Coeff of Sophie Cancelled, Plt Count Cancelled, MPV Cancelled, Immature Gran % (Auto) Cancelled, Neut % (Auto) Cancelled, Lymph % (Auto) Cancelled, Barry % (Auto) Cancelled, Eos % (Auto) Cancelled, Baso % (Auto) Cancelled, Absolute Neuts (auto) Cancelled, Absolute Lymphs (auto) Cancelled, Total Counted Cancelled, Neutrophils % (Manual) Cancelled, Band Neutrophils % Cancelled, Lymphocytes % (Manual) Cancelled, Monocytes % (Manual) Cancelled, Eosinophils % (Manual) Cancelled, Basophils % (Manual) Cancelled, Metamyelocytes % Cancelled, Myelocytes % Cancelled, Promyelocytes % Cancelled, Blast Cells % Cancelled, Plasma Cell % (Manual) Cancelled, Other Cells % Cancelled, Nucleated RBC % Cancelled, Nucleated RBCs/100 WBC Cancelled, Differential Comment Cancelled, Diff Path Review Cancelled, Hypersegmented Neuts Cancelled, Atypical Lymphocytes Cancelled, Reactive Lymphocytes Cancelled, Smudge Cells Cancelled, Toxic Granulation Cancelled, Toxic Vacuolation Cancelled, Dohle Bodies Cancelled, Roxana Rods Cancelled, Platelet Estimate Cancelled, Plt Morphology Comment Cancelled, RBC Morphology Cancelled, Polychromasia Cancelled, Hypochromasia Cancelled, Poikilocytosis Cancelled, Basophilic Stippling Cancelled, Anisocytosis Cancelled, Microcytosis Cancelled, Macrocytosis Cancelled, Spherocytes Cancelled, Sickle Cells Cancelled, Target Cells Cancelled, Tear Drop Cells Cancelled, Ovalocytes Cancelled, Stomatocytes Cancelled, Lala-[place] Bodies Cancelled, [place] Cells Cancelled, Bite Cells Cancelled, Crenated Cell Cancelled, Acanthocytes (Spur) Cancelled, Rouleaux Cancelled, Schistocytes Cancelled 10/09/19 10:54: PT Cancelled, INR Cancelled 10/09/19 10:54: Sodium Cancelled, Potassium Cancelled, Chloride Cancelled, Carbon Dioxide Cancelled, Anion Gap Cancelled, BUN Cancelled, Creatinine Cancelled, Estim Creat Clear Calc Cancelled, Est GFR (MDRD) Af Amer Cancelled, Est GFR (MDRD) Non-Af Cancelled, BUN/Creatinine Ratio Cancelled, Glucose Cancelled, Calcium Cancelled, Total Bilirubin Cancelled, AST Cancelled, ALT Cancelled, Alkaline Phosphatase Cancelled, Troponin I Cancelled, Total Protein Cancelled, Albumin Cancelled, Globulin Cancelled, Albumin/Globulin Ratio Cancelled 10/09/19 10:54: Blood Type Cancelled, Antibody Screen Cancelled 10/09/19 12:00: PT 15.7 H, INR 1.3, APTT Cancelled 10/09/19 12:00: WBC 5.4, RBC 1.72 L, Hgb 6.5 L, Hct 18.6 L, MCV 108.1 H, MCH 37.8 H, MCHC 34.9, RDW Std Deviation 61.1 H, RDW Coeff of Sophie 15.7 H, Plt Count 65 L, MPV 11.5, Immature Gran % (Auto) 1.500 H, Neut % (Auto) 86.3 H, Lymph % (Auto) 5.9 L, Barry % (Auto) 6.3, Eos % (Auto) 0.0, Baso % (Auto) 0.0, Absolute Neuts (auto) 4.7, Absolute Lymphs (auto) 0.32 L, Nucleated RBC % 0, Platelet Estimate MOD DEC, Hypochromasia 1+, Macrocytosis RARE 10/09/19 12:00: Sodium 132 L, Potassium 3.1 L, Chloride 102, Carbon Dioxide 20.0 L, Anion Gap 10, BUN 12, Creatinine 1.55 H, Estim Creat Clear Calc 49.75, Est GFR (MDRD) Af Amer 60, Est GFR (MDRD) Non-Af 49 L, BUN/Creatinine Ratio 7.7 L, Glucose 99, Calcium < 5.0 L*, Total Bilirubin 0.20, AST 30, ALT 14 L, Alkaline Phosphatase 95, Troponin I < 0.015, Total Protein 6.3 L, Albumin 2.0 L, Globulin 4.3 H, Albumin/Globulin Ratio 0.5 L 10/09/19 12:00: Blood Type O POSITIVE, Antibody Screen NEGATIVE 10/09/19 12:20: Crossmatch See Detail Clinical Impression(s) from Imaging Studies Brain CT 10/09/19 10:39 IMPRESSION: Chronic involutional changes of the brain. Stable examination. Electronically Signed: Baljinder Geovani, at 11:34 EDT , Service support , Chest X-Ray 10/09/19 10:40 IMPRESSION: Consolidation in the left apex. This may represent either pneumonic infiltration versus a mass lesion. CT scan is recommended. Electronically Signed: Baljinder Olivo, at 11:40 EDT , Service support , Hip/Pelvis X-Ray 10/09/19 10:40 IMPRESSION: Transverse fracture of the basilar cervical region of the right femoral neck with cephalic migration of the distal fracture fragment. Electronically Signed: Baljinder Olivo, at 11:39 EDT , Service support , Current Medications Calcium Gluconate 2 gm/ (Dextrose) 120 mls @ 60 mls/hr IV X1 ONE Stop: 10/09/19 14:58 Last Admin: 10/09/19 13:18 Dose: 60 mls/hr Documented by: Levetiracetam (Keppra Oral Solution) 1,000 mg PO BID [facility] Assessment/Plan 1. New onset seizure: * Technically this is new onset but patient had a syncopal episode back in August is likely a seizure at that time. And this episode was likely attributable to seizure as well. * We will continue with the Keppra 1000 mg twice daily. * Check an MRI of the brain as well as an EEG. Then consult tele-neurology for further input once those results are back. * Etiology of seizure is unclear as it could be related with hypocalcemia or possible brain mass or some other etiology 2. Severe hypocalcemia * Patient receiving calcium gluconate 2g * will check magnesium as well as recheck calcium later on today. Replace electrolytes as appropriate. * Check 25-hydroxy vitamin D level and PTH level * pt to be admitted to ICU for closer monitor, at least overnight. 3. Right transverse fracture of the right femoral neck: * Status post fall * Bedrest until surgery can be performed * Patient will need to be more medically optimized prior to undergoing surgery * DW Dr. Shrestha who will be on consult. Tentative plan is for surgery on 10/09 around 1000, if stable. * Discussed with anesthesia, who states that once patient is medically optimized there would be no hesitation on their and for the patient to proceed with surgery. * per NSQIP, pt cleared to procedure without further work up. However, this a tool, and the above issues will need to be optimized prior to surgery. 4. Anemia, macrocytic * agree with transfusion initiated by ED * check iron, TIBC, ferritin, B12, folate, TSH 5. Hypokalemia * replace * check magnesium 6. EVERARDO * suspect prerenal * IVF * recheck 7. NSCLC * stage IV per the patient, but does not know where metastasized to * check records from Dr. Laguerre's office 8. DM2 * hold metformin * SSI 9. VTE prophylaxis: high-surgical risk. SCDs, hold chemical given anemia 10. Advanced care planning: Patient wishes to be DNR Comfort Care arrest no intubation. He is okay with rescinding the no intubation for surgery, however. Inpatient E&M: 84703 Init Hosp L3
[2019-10-09] MEDS: oxyCODONE 5 MG Tablet 10 MG PO (15:25)
[2019-10-09 16:12] LABS: Vitamin B12 1019 pg/mL (211-911); Vitamin D,25 Hydroxy 8.6 ng/mL
[2019-10-09 17:13] LABS: Ferritin 1996 ng/mL (26-388); Iron 84 ug/dL (65-175); Iron Binding Capacity,Total 131 ug/dL (250-450); Magnesium 0.4 mg/dL (1.6-2.6); PERCENT IRON SATURATION 64.1 % (15.0-55.0); Thyroid Stim Hormone (TSH) 1.71 uIU/mL (0.358-3.74)
[2019-10-09 17:21] LABS: Bedside Glucose 96 mg/dL (70-110)
[2019-10-09] MEDS: diazePAM 5 MG Tablet PO (17:41)
[2019-10-09] MEDS: fentaNYL 100 MCG/2 ML Ampul 25 MCG IV (17:50)
[2019-10-09] MEDS: Magnesium Sulfate 4gm/100mL 4 GM/100 ML IV.SOLN. IV (19:56)
[2019-10-09] MEDS: 0.9% Saline Lock 10 ML Syringe IV (19:56)
[2019-10-09 20:31] LABS: Anion Gap 8 (5-15); BUN 13 mg/dL (7-18); Calcium,Total 5.4 mg/dL (8.5-10.1); Chloride 104 mmol/L (98-107); EST Glomerular Filtration Rate 61 mL/min (>60); Est Glom Filt Rate - Afr Amer 73 mL/min (>60); Estimated Creatinine Clearance 59.32 ml/min; Glucose 120 mg/dL (74-106); Potassium 3.6 mmol/L (3.5-5.1); Sodium Level 134 mmol/L (136-145)
[2019-10-09 22:26] LABS: Bedside Glucose 123 mg/dL (70-110)
[2019-10-09] MEDS: Atorvastatin Calcium 40 MG Tablet PO (22:26)
[2019-10-09] MEDS: QUEtiapine 100 MG Tablet 400 MG PO (22:26)
[2019-10-09] MEDS: Pregabalin 75 MG Capsule 300 MG PO (22:33)
[2019-10-09] MEDS: levETIRAcetam Oral Solution 500 MG/5 ML 1000 MG PO (22:33)
[2019-10-10] VITALS (29 sets, daily range): BP systolic 93–128; BP diastolic 55–87; PULSE 90–114; RESP 10–22; TEMP 36.1–37.2; O2SAT 19–100
[2019-10-10] MEDS: 0.9% Saline Lock 10 ML Syringe IV ×4 (00:32→06:17)
[2019-10-10 02:26] LABS: Anion Gap 7 (5-15); BUN 12 mg/dL (7-18); Calcium,Total 5.3 mg/dL (8.5-10.1); Chloride 106 mmol/L (98-107); EST Glomerular Filtration Rate 82 mL/min (>60); Est Glom Filt Rate - Afr Amer 99 mL/min (>60); Estimated Creatinine Clearance 77.12 ml/min; Glucose 110 mg/dL (74-106); Potassium 3.8 mmol/L (3.5-5.1); Sodium Level 135 mmol/L (136-145)
[2019-10-10] MEDS: Cosyntropin 0.25 MG in 0.9% Normal Saline (Pres. free 1 ML 30 MG IV (05:05)
[2019-10-10 05:30] LABS: Anion Gap 7 (5-15); BUN 11 mg/dL (7-18); BUN/Creat Ratio 10.6 RATIO (10-20); Calcium,Total 6.1 mg/dL (8.5-10.1); Chloride 107 mmol/L (98-107); Creatinine, Serum 1.04 mg/dL (0.70-1.30); EST Glomerular Filtration Rate 78 mL/min (>60); Est Glom Filt Rate - Afr Amer 95 mL/min (>60); Estimated Creatinine Clearance 74.15 ml/min; Glucose 113 mg/dL (74-106); Magnesium 1.6 mg/dL (1.6-2.6); Potassium 4.2 mmol/L (3.5-5.1); Sodium Level 136 mmol/L (136-145)
[2019-10-10 06:40] LABS: Bedside Glucose 98 mg/dL (70-110)
--- NOTE | 2019-10-10 06:59 | PCM.CON.CC ---
Reason for Consult Date of Consultation: 10/10/19 Reason for Consultation: Anemia, hypocalcemia, new onset seizures History of Present Illness: The patient is a 54-year-old male, with a history as outlined below, who presented to the emergency department on October 08 following an episode of near syncope. The patient is currently being followed by Dr. Justus Harper of oncology due to a history of primary adenocarcinoma of the left lung. He is currently on maintenance therapy with Keytruda and Alimta. The patient does report that he is prescribed daily PPI therapy due to a history of GERD. He also reports the presence of chronic diarrhea but denies any hematochezia, melena or hematemesis. On presentation to the emergency department, the patient was noted to be afebrile and hemodynamically stable. Laboratory evaluation revealed no evidence of a leukocytosis. The patient was anemic with a hemoglobin of 6.5 g/dL. He was also thrombocytopenic with a platelet count of 65,000. Chemistry profile was notable for a sodium of 132, potassium of 3.1, bicarbonate of 20 and creatinine of 1.55. Calcium was low at less than 5. Magnesium was low at 0.4. Head CT revealed chronic involutional changes of the brain. Pelvis/hip x-ray revealed a transverse fracture of the basilar cervical region of the right femoral neck. While being removed from the CT scanner, the patient did experience a witnessed seizure event. The patient was noted to be postictal following the event. He was subsequently treated with Keppra, calcium and was ordered to receive 2 units of packed red blood cells. The patient was subsequently transferred to the medical intensive care unit for further management. Brain MRI obtained last evening revealed mild atrophy and periventricular white matter ischemic changes without evidence for acute infarct. There was no evidence of metastatic disease. EEG was unremarkable. Past Medical History Medical History: Medical History (Last Updated 10/09/19 @ 13:[address] Héctor Billings DO) DM2 (diabetes mellitus, type 2) E11.9 Non-small cell lung cancer C34.90 HTN (hypertension) I10 Allergies No Known Allergies Allergy (Verified 10/09/19 10:36) Home Medications: Ambulatory Orders Medication Instructions Recorded Atorvastatin Calcium [Lipitor] 40 mg PO QHS 12/15/16 Citalopram [Celexa] 40 mg PO DAILY 12/15/16 Ferrous Sulfate 325 mg PO DAILY@0800 12/27/17 Hydroxyzine HCl 25 mg PO BID PRN PRN 12/27/17 Folic Acid 1 mg PO DAILY 08/25/19 Pregabalin 300 mg PO BID 08/25/19 Diazepam [Valium] 5 mg PO Q8H PRN PRN 10/09/19 Levothyroxine [Synthroid] 75 mcg PO DAILY 10/09/19 Lisinopril [Zestril] 20 mg PO DAILY 10/09/19 Metformin HCl 1,000 mg PO DAILY 10/09/19 Omeprazole 40 mg PO DAILY 10/09/19 Ondansetron [Zofran] 8 mg PO Q8H PRN PRN 10/09/19 Oxycodone HCl/Acetaminophen 1 ea PO Q6H PRN PRN 10/09/19 [Oxycodone-Acetaminophen 5-325] Quetiapine Fumarate 400 mg PO QHS 10/09/19 traZODone [Desyrel] 50 mg PO QHS 10/09/19 Surgical History: noncontributory Smoking Status: Heavy Smoker (>10/day) Tobacco Use: Cigarettes Alcohol: Occasional Drugs: None - *Family History Maternal History Items: - - no lung cancer Review of Systems Constitutional: Reports: Fatigue. Denies: Chills, Fever Eyes: Denies: Blurred vision, Double vision HEENT: Denies: Head Aches, Sinus Congestion, Sinus Drainage Cardiovascular: Denies: Chest Pain, Palpitations Respiratory: Denies: Cough, Shortness of Breath Gastrointestinal: Reports: Diarrhea. Denies: Hematemesis, Hematochezia, Melena Genitourinary: Denies: Dysuria Musculoskeletal: Reports: Joint Pain Skin: Denies: Rash, Wounds Neurological: Reports: Balance problems, Seizures Psychiatric: Denies: Anxiety, Depression, Homicidal Ideations, Suicidal Ideations Hematologic/ Lymphatic: Reports: Anemia, Hx of blood transfusion Objective: The patient's most recent lab work, culture data and imaging studies have all been personally reviewed. - Physical Exam Vitals/I&O's: Vital Signs Temp Pulse Resp BP Pulse Ox 97.5 F L 108 H 17 96/73 96 10/10/19 01:00 10/10/19 06:00 10/10/19 06:00 10/10/19 04:00 10/10/19 06:00 Oxygen Flow Rate (L/min) 2 Oxygen Delivery Method Nasal Cannula Weight: 173 lb 8.061 oz Body Mass Index (BMI) 26.4 Intake and Output for Last 24 Hours 10/08/19 10/09/19 10/10/19 23:59 23:59 23:59 Intake Total 2720.50 / 2720.50 529 / 529 Output Total 0 / 0 1900 / 1900 Balance 2720.50 / 2720.50 -1371 / -1371 General: Alert, Cooperative, No apparent distress HEENT: Atraumatic, Normocephalic Oral: No Gingival or Mucosal Lesions/ Ulcerations Neck: Supple, No Nodes, Trachea Midline Lungs: No rhonchi, No wheeze, No rales, Diminished Cardiovascular: Regular rate, Regular Rhythm, Normal S1, Normal S2 Abdomen: Bowel Sounds Present, Soft, Non Tender Extremities: No clubbing, No cyanosis, No edema Skin: No breakdown Musculoskeletal: No Muscle Wasting Lymphatic: No Cervical, Supraclavicular, or Inguinal Adenopathy Neurological: Neuro grossly intact Psych/Mental Status: Alert and oriented to time, place, person, mood and affect Labs (Last 48 Hours) 10/09/19 10/09/19 10/09/19 10:54 10:54 10:54 WBC Cancelled Corrected WBC Cancelled RBC Cancelled Hgb Cancelled Hct Cancelled MCV Cancelled MCH Cancelled MCHC Cancelled RDW Std Deviation Cancelled RDW Coeff of Sophie Cancelled Plt Count Cancelled MPV Cancelled Immature Gran % (Auto) Cancelled Neut % (Auto) Cancelled Lymph % (Auto) Cancelled Conway % (Auto) Cancelled Eos % (Auto) Cancelled Baso % (Auto) Cancelled Absolute Neuts (auto) Cancelled Absolute Lymphs (auto) Cancelled Total Counted Cancelled Neutrophils % (Manual) Cancelled Band Neutrophils % Cancelled Lymphocytes % (Manual) Cancelled Monocytes % (Manual) Cancelled Eosinophils % (Manual) Cancelled Basophils % (Manual) Cancelled Metamyelocytes % Cancelled Myelocytes % Cancelled Promyelocytes % Cancelled Blast Cells % Cancelled Plasma Cell % (Manual) Cancelled Other Cells % Cancelled Nucleated RBC % Cancelled Nucleated RBCs/100 WBC Cancelled Differential Comment Cancelled Diff Path Review Cancelled Hypersegmented Neuts Cancelled Atypical Lymphocytes Cancelled Reactive Lymphocytes Cancelled Smudge Cells Cancelled Toxic Granulation Cancelled Toxic Vacuolation Cancelled Dohle Bodies Cancelled Roxana Rods Cancelled Platelet Estimate Cancelled Plt Morphology Comment Cancelled RBC Morphology Cancelled Polychromasia Cancelled Hypochromasia Cancelled Poikilocytosis Cancelled Basophilic Stippling Cancelled Anisocytosis Cancelled Microcytosis Cancelled Macrocytosis Cancelled Spherocytes Cancelled Sickle Cells Cancelled Target Cells Cancelled Tear Drop Cells Cancelled Ovalocytes Cancelled Stomatocytes Cancelled Lala-Uriah Bodies Cancelled Danica Cells Cancelled Bite Cells Cancelled Crenated Cell Cancelled Acanthocytes (Spur) Cancelled Rouleaux Cancelled Schistocytes Cancelled PT Cancelled INR Cancelled APTT Sodium Cancelled Potassium Cancelled Chloride Cancelled Carbon Dioxide Cancelled Anion Gap Cancelled BUN Cancelled Creatinine Cancelled Estim Creat Clear Calc Cancelled Est GFR (MDRD) Af Amer Cancelled Est GFR (MDRD) Non-Af Cancelled BUN/Creatinine Ratio Cancelled Glucose Cancelled Calcium Cancelled Magnesium Iron TIBC Iron Saturation Ferritin Total Bilirubin Cancelled AST Cancelled ALT Cancelled Alkaline Phosphatase Cancelled Troponin I Cancelled Total Protein Cancelled Albumin Cancelled Globulin Cancelled Albumin/Globulin Ratio Cancelled Vitamin B12 Vitamin D 25-Hydroxy Folate TSH PTH Intact Cortisol MRSA (PCR) POC Glucose Blood Type Antibody Screen Crossmatch 10/09/19 10/09/19 10/09/19 10:54 12:00 12:00 WBC 5.4 Corrected WBC RBC 1.72 L Hgb 6.5 L Hct 18.6 L MCV 108.1 H MCH 37.8 H MCHC 34.9 RDW Std Deviation 61.1 H RDW Coeff of Sophie 15.7 H Plt Count 65 L MPV 11.5 Immature Gran % (Auto) 1.500 H Neut % (Auto) 86.3 H Lymph % (Auto) 5.9 L Conway % (Auto) 6.3 Eos % (Auto) 0.0 Baso % (Auto) 0.0 Absolute Neuts (auto) 4.7 Absolute Lymphs (auto) 0.32 L Total Counted Neutrophils % (Manual) Band Neutrophils % Lymphocytes % (Manual) Monocytes % (Manual) Eosinophils % (Manual) Basophils % (Manual) Metamyelocytes % Myelocytes % Promyelocytes % Blast Cells % Plasma Cell % (Manual) Other Cells % Nucleated RBC % 0 Nucleated RBCs/100 WBC Differential Comment Diff Path Review Hypersegmented Neuts Atypical Lymphocytes Reactive Lymphocytes Smudge Cells Toxic Granulation Toxic Vacuolation Dohle Bodies Roxana Rods Platelet Estimate MOD DEC Plt Morphology Comment RBC Morphology Polychromasia Hypochromasia 1+ Poikilocytosis Basophilic Stippling Anisocytosis Microcytosis Macrocytosis RARE Spherocytes Sickle Cells Target Cells Tear Drop Cells Ovalocytes Stomatocytes Lala-Uriah Bodies [place]ica Cells Bite Cells Crenated Cell Acanthocytes (Spur) Rouleaux Schistocytes PT 15.7 H INR 1.3 APTT Cancelled Sodium Potassium Chloride Carbon Dioxide Anion Gap BUN Creatinine Estim Creat Clear Calc Est GFR (MDRD) Af Amer Est GFR (MDRD) Non-Af BUN/Creatinine Ratio Glucose Calcium Magnesium Iron TIBC Iron Saturation Ferritin Total Bilirubin AST ALT Alkaline Phosphatase Troponin I Total Protein Albumin Globulin Albumin/Globulin Ratio Vitamin B12 Vitamin D 25-Hydroxy Folate TSH PTH Intact Cortisol MRSA (PCR) POC Glucose Blood Type Cancelled Antibody Screen Cancelled Crossmatch 10/09/19 10/09/19 10/09/19 12:00 12:00 12:20 WBC Corrected WBC RBC Hgb Hct MCV MCH MCHC RDW Std Deviation RDW Coeff of Sophie Plt Count MPV Immature Gran % (Auto) Neut % (Auto) Lymph % (Auto) Conway % (Auto) Eos % (Auto) Baso % (Auto) Absolute Neuts (auto) Absolute Lymphs (auto) Total Counted Neutrophils % (Manual) Band Neutrophils % Lymphocytes % (Manual) Monocytes % (Manual) Eosinophils % (Manual) Basophils % (Manual) Metamyelocytes % Myelocytes % Promyelocytes % Blast Cells % Plasma Cell % (Manual) Other Cells % Nucleated RBC % Nucleated RBCs/100 WBC Differential Comment Diff Path Review Hypersegmented Neuts Atypical Lymphocytes Reactive Lymphocytes Smudge Cells Toxic Granulation Toxic Vacuolation Dohle Bodies Roxana Rods Platelet Estimate Plt Morphology Comment RBC Morphology Polychromasia Hypochromasia Poikilocytosis Basophilic Stippling Anisocytosis Microcytosis Macrocytosis Spherocytes Sickle Cells Target Cells Tear Drop Cells Ovalocytes Stomatocytes Lala-Uriah Bodies [place] Cells Bite Cells Crenated Cell Acanthocytes (Spur) Rouleaux Schistocytes PT INR APTT Sodium 132 L Potassium 3.1 L Chloride 102 Carbon Dioxide 20.0 L Anion Gap 10 BUN 12 Creatinine 1.55 H Estim Creat Clear Calc 49.75 Est GFR (MDRD) Af Amer 60 Est GFR (MDRD) Non-Af 49 L BUN/Creatinine Ratio 7.7 L Glucose 99 Calcium < 5.0 L* Magnesium Iron TIBC Iron Saturation Ferritin Total Bilirubin 0.20 AST 30 ALT 14 L Alkaline Phosphatase 95 Troponin I < 0.015 Total Protein 6.3 L Albumin 2.0 L Globulin 4.3 H Albumin/Globulin Ratio 0.5 L Vitamin B12 Vitamin D 25-Hydroxy Folate TSH PTH Intact Cortisol MRSA (PCR) POC Glucose Blood Type O POSITIVE Antibody Screen NEGATIVE Crossmatch See Detail 10/09/19 10/09/19 10/09/19 12:20 15:40 15:40 WBC Corrected WBC RBC Hgb Hct MCV MCH MCHC RDW Std Deviation RDW Coeff of Sophie Plt Count MPV Immature Gran % (Auto) Neut % (Auto) Lymph % (Auto) Conway % (Auto) Eos % (Auto) Baso % (Auto) Absolute Neuts (auto) Absolute Lymphs (auto) Total Counted Neutrophils % (Manual) Band Neutrophils % Lymphocytes % (Manual) Monocytes % (Manual) Eosinophils % (Manual) Basophils % (Manual) Metamyelocytes % Myelocytes % Promyelocytes % Blast Cells % Plasma Cell % (Manual) Other Cells % Nucleated RBC % Nucleated RBCs/100 WBC Differential Comment Diff Path Review Hypersegmented Neuts Atypical Lymphocytes Reactive Lymphocytes Smudge Cells Toxic Granulation Toxic Vacuolation Dohle Bodies Roxana Rods Platelet Estimate Plt Morphology Comment RBC Morphology Polychromasia Hypochromasia Poikilocytosis Basophilic Stippling Anisocytosis Microcytosis Macrocytosis Spherocytes Sickle Cells Target Cells Tear Drop Cells Ovalocytes Stomatocytes Lala-Uriah Bodies [place] Cells Bite Cells Crenated Cell Acanthocytes (Spur) Rouleaux Schistocytes PT INR APTT Sodium Potassium Chloride Carbon Dioxide Anion Gap BUN Creatinine Estim Creat Clear Calc Est GFR (MDRD) Af Amer Est GFR (MDRD) Non-Af BUN/Creatinine Ratio Glucose Calcium Magnesium Cancelled Iron TIBC Iron Saturation Ferritin Total Bilirubin AST ALT Alkaline Phosphatase Troponin I Total Protein Albumin Globulin Albumin/Globulin Ratio Vitamin B12 1019 H Vitamin D 25-Hydroxy 8.6 Folate TSH Cancelled PTH Intact Pending Cortisol MRSA (PCR) POC Glucose Blood Type Antibody Screen Crossmatch 10/09/19 10/09/19 10/09/19 15:40 17:13 19:45 WBC Corrected WBC RBC Hgb Hct MCV MCH MCHC RDW Std Deviation RDW Coeff of Sophie Plt Count MPV Immature Gran % (Auto) Neut % (Auto) Lymph % (Auto) Conway % (Auto) Eos % (Auto) Baso % (Auto) Absolute Neuts (auto) Absolute Lymphs (auto) Total Counted Neutrophils % (Manual) Band Neutrophils % Lymphocytes % (Manual) Monocytes % (Manual) Eosinophils % (Manual) Basophils % (Manual) Metamyelocytes % Myelocytes % Promyelocytes % Blast Cells % Plasma Cell % (Manual) Other Cells % Nucleated RBC % Nucleated RBCs/100 WBC Differential Comment Diff Path Review Hypersegmented Neuts Atypical Lymphocytes Reactive Lymphocytes Smudge Cells Toxic Granulation Toxic Vacuolation Dohle Bodies Roxana Rods Platelet Estimate Plt Morphology Comment RBC Morphology Polychromasia Hypochromasia Poikilocytosis Basophilic Stippling Anisocytosis Microcytosis Macrocytosis Spherocytes Sickle Cells Target Cells Tear Drop Cells Ovalocytes Stomatocytes Lala-Uriah Bodies [place] Cells Bite Cells Crenated Cell Acanthocytes (Spur) Rouleaux Schistocytes PT INR APTT Sodium 134 L Potassium 3.6 Chloride 104 Carbon Dioxide 22.0 Anion Gap 8 BUN 13 Creatinine 1.30 Estim Creat Clear Calc 59.32 Est GFR (MDRD) Af Amer 73 Est GFR (MDRD) Non-Af 61 BUN/Creatinine Ratio 10.0 Glucose 120 H Calcium 5.4 L* Magnesium 0.4 L* Iron 84 TIBC 131 L Iron Saturation 64.1 H Ferritin 1996 H Total Bilirubin AST ALT Alkaline Phosphatase Troponin I Total Protein Albumin Globulin Albumin/Globulin Ratio Vitamin B12 Vitamin D 25-Hydroxy Folate 42.70 TSH 1.71 PTH Intact Cortisol MRSA (PCR) POC Glucose 96 Blood Type Antibody Screen Crossmatch 10/09/19 10/09/19 10/10/19 22:21 22:49 01:55 WBC Corrected WBC RBC Hgb Hct MCV MCH MCHC RDW Std Deviation RDW Coeff of Sophie Plt Count MPV Immature Gran % (Auto) Neut % (Auto) Lymph % (Auto) Conway % (Auto) Eos % (Auto) Baso % (Auto) Absolute Neuts (auto) Absolute Lymphs (auto) Total Counted Neutrophils % (Manual) Band Neutrophils % Lymphocytes % (Manual) Monocytes % (Manual) Eosinophils % (Manual) Basophils % (Manual) Metamyelocytes % Myelocytes % Promyelocytes % Blast Cells % Plasma Cell % (Manual) Other Cells % Nucleated RBC % Nucleated RBCs/100 WBC Differential Comment Diff Path Review Hypersegmented Neuts Atypical Lymphocytes Reactive Lymphocytes Smudge Cells Toxic Granulation Toxic Vacuolation Dohle Bodies Roxana Rods Platelet Estimate Plt Morphology Comment RBC Morphology Polychromasia Hypochromasia Poikilocytosis Basophilic Stippling Anisocytosis Microcytosis Macrocytosis Spherocytes Sickle Cells Target Cells Tear Drop Cells Ovalocytes Stomatocytes Lala-Uriah Bodies [place] Cells Bite Cells Crenated Cell Acanthocytes (Spur) Rouleaux Schistocytes PT INR APTT Sodium 135 L Potassium 3.8 Chloride 106 Carbon Dioxide 22.0 Anion Gap 7 BUN 12 Creatinine 1.00 Estim Creat Clear Calc 77.12 Est GFR (MDRD) Af Amer 99 Est GFR (MDRD) Non-Af 82 BUN/Creatinine Ratio 12.0 Glucose 110 H Calcium 5.3 L* Magnesium Iron TIBC Iron Saturation Ferritin Total Bilirubin AST ALT Alkaline Phosphatase Troponin I Total Protein Albumin Globulin Albumin/Globulin Ratio Vitamin B12 Vitamin D 25-Hydroxy Folate TSH PTH Intact Cortisol MRSA (PCR) Pending POC Glucose 123 H Blood Type Antibody Screen Crossmatch 10/10/19 10/10/19 10/10/19 04:50 04:50 04:50 WBC Cancelled Corrected WBC Cancelled RBC Cancelled Hgb Cancelled Hct Cancelled MCV Cancelled MCH Cancelled MCHC Cancelled RDW Std Deviation Cancelled RDW Coeff of Sophie Cancelled Plt Count Cancelled MPV Cancelled Immature Gran % (Auto) Cancelled Neut % (Auto) Cancelled Lymph % (Auto) Cancelled [place] % (Auto) Cancelled Eos % (Auto) Cancelled Baso % (Auto) Cancelled Absolute Neuts (auto) Cancelled Absolute Lymphs (auto) Cancelled Total Counted Cancelled Neutrophils % (Manual) Cancelled Band Neutrophils % Cancelled Lymphocytes % (Manual) Cancelled Monocytes % (Manual) Cancelled Eosinophils % (Manual) Cancelled Basophils % (Manual) Cancelled Metamyelocytes % Cancelled Myelocytes % Cancelled Promyelocytes % Cancelled Blast Cells % Cancelled Plasma Cell % (Manual) Cancelled Other Cells % Cancelled Nucleated RBC % Cancelled Nucleated RBCs/100 WBC Cancelled Differential Comment Cancelled Diff Path Review Cancelled Hypersegmented Neuts Cancelled Atypical Lymphocytes Cancelled Reactive Lymphocytes Cancelled Smudge Cells Cancelled Toxic Granulation Cancelled Toxic Vacuolation Cancelled Dohle Bodies Cancelled Roxana Rods Cancelled Platelet Estimate Cancelled Plt Morphology Comment Cancelled RBC Morphology Cancelled Polychromasia Cancelled Hypochromasia Cancelled Poikilocytosis Cancelled Basophilic Stippling Cancelled Anisocytosis Cancelled Microcytosis Cancelled Macrocytosis Cancelled Spherocytes Cancelled Sickle Cells Cancelled Target Cells Cancelled Tear Drop Cells Cancelled Ovalocytes Cancelled Stomatocytes Cancelled Lala-Uri[place] Bodies Cancelled Danica Cells Cancelled Bite Cells Cancelled Crenated Cell Cancelled Acanthocytes (Spur) Cancelled Rouleaux Cancelled Schistocytes Cancelled PT INR APTT Sodium 136 Potassium 4.2 Chloride 107 Carbon Dioxide 22.0 Anion Gap 7 BUN 11 Creatinine 1.04 Estim Creat Clear Calc 74.15 Est GFR (MDRD) Af Amer 95 Est GFR (MDRD) Non-Af 78 BUN/Creatinine Ratio 10.6 Glucose 113 H Calcium 6.1 L* Magnesium 1.6 Iron TIBC Iron Saturation Ferritin Total Bilirubin AST ALT Alkaline Phosphatase Troponin I Total Protein Albumin Globulin Albumin/Globulin Ratio Vitamin B12 Vitamin D 25-Hydroxy Folate TSH PTH Intact Cortisol 14.30 MRSA (PCR) POC Glucose Blood Type Antibody Screen Crossmatch 10/10/19 10/10/19 10/10/19 04:50 05:45 06:34 WBC Cancelled Corrected WBC Cancelled RBC Cancelled Hgb Cancelled Hct Cancelled MCV Cancelled MCH Cancelled MCHC Cancelled RDW Std Deviation Cancelled RDW Coeff of Sophie Cancelled Plt Count Cancelled MPV Cancelled Immature Gran % (Auto) Cancelled Neut % (Auto) Cancelled Lymph % (Auto) Cancelled [place] % (Auto) Cancelled Eos % (Auto) Cancelled Baso % (Auto) Cancelled Absolute Neuts (auto) Cancelled Absolute Lymphs (auto) Cancelled Total Counted Cancelled Neutrophils % (Manual) Cancelled Band Neutrophils % Cancelled Lymphocytes % (Manual) Cancelled Monocytes % (Manual) Cancelled Eosinophils % (Manual) Cancelled Basophils % (Manual) Cancelled Metamyelocytes % Cancelled Myelocytes % Cancelled Promyelocytes % Cancelled Blast Cells % Cancelled Plasma Cell % (Manual) Cancelled Other Cells % Cancelled Nucleated RBC % Cancelled Nucleated RBCs/100 WBC Cancelled Differential Comment Cancelled Diff Path Review Cancelled Hypersegmented Neuts Cancelled Atypical Lymphocytes Cancelled Reactive Lymphocytes Cancelled Smudge Cells Cancelled Toxic Granulation Cancelled Toxic Vacuolation Cancelled Dohle Bodies Cancelled Roxana Rods Cancelled Platelet Estimate Cancelled Plt Morphology Comment Cancelled RBC Morphology Cancelled Polychromasia Cancelled Hypochromasia Cancelled Poikilocytosis Cancelled Basophilic Stippling Cancelled Anisocytosis Cancelled Microcytosis Cancelled Macrocytosis Cancelled Spherocytes Cancelled Sickle Cells Cancelled Target Cells Cancelled Tear Drop Cells Cancelled Ovalocytes Cancelled Stomatocytes Cancelled Lala-Uriah Bodies Cancelled Danica Cells Cancelled Bite Cells Cancelled Crenated Cell Cancelled Acanthocytes (Spur) Cancelled Rouleaux Cancelled Schistocytes Cancelled PT INR APTT Sodium Potassium Chloride Carbon Dioxide Anion Gap BUN Creatinine Estim Creat Clear Calc Est GFR (MDRD) Af Amer Est GFR (MDRD) Non-Af BUN/Creatinine Ratio Glucose Calcium Magnesium Iron TIBC Iron Saturation Ferritin Total Bilirubin AST ALT Alkaline Phosphatase Troponin I Total Protein Albumin Globulin Albumin/Globulin Ratio Vitamin B12 Vitamin D 25-Hydroxy Folate TSH PTH Intact Cortisol Pending MRSA (PCR) POC Glucose 98 Blood Type Antibody Screen Crossmatch Clinical Impression(s) from Imaging Studies Brain CT 10/09/19 10:39 IMPRESSION: Chronic involutional changes of the brain. Stable examination. Electronically Signed: Baljinder Olivo, at 11:34 EDT , Service support , Chest X-Ray 10/09/19 10:40 IMPRESSION: Consolidation in the left apex. This may represent either pneumonic infiltration versus a mass lesion. CT scan is recommended. Electronically Signed: Baljinder Olivo, at 11:40 EDT , Service support , Hip/Pelvis X-Ray 10/09/19 10:40 IMPRESSION: Transverse fracture of the basilar cervical region of the right femoral neck with cephalic migration of the distal fracture fragment. Electronically Signed: Baljinder Olivo at 11:39 EDT , Service support , Brain MRI 10/09/19 13:45 IMPRESSION: Mild atrophy and periventricular white matter ischemic changes without evidence for acute infarct. No focal enhancing lesions to suggest metastatic disease. Electronically Signed: Tommy Francis MD at 19:43 EDT , Service support , Current Medications Acetaminophen (Tylenol) 650 mg PO Q6H PRN PRN PRN Reason: Pain Score 1-10/Temp > 100.7 F Atorvastatin Calcium (Lipitor) 40 mg PO QHS [facility] Last Admin: 10/09/19 22:26 Dose: 40 mg Documented by: Citalopram Hydrobromide (Celexa) 40 mg PO DAILY [facility] Sodium Chloride 68.4 ml/Ropivacaine 20 ml/ Epinephrine HCl 0.6 mg/ Morphine Sulfate 5 mg/ Ketorolac Tromethamine 30 mg 0 ml OPERA.SITE X1 ONE Stop: 10/10/19 09:01 Dextrose (D50w Syringe) 0 gm IV X1 PRN; Protocol PRN Reason: Hypoglycemia Diazepam (Valium) 5 mg PO Q8H PRN PRN Reason: MUSCLES SPASMS Last Admin: 10/09/19 17:41 Dose: 5 mg Documented by: Ergocalciferol (Vitamin D) 50,000 unit PO Q7D [facility] Last Admin: 10/09/19 22:26 Dose: 50,000 unit Documented by: Fentanyl Citrate (Sublimaze (100mcg Ampule)) 25 mcg IV Q4H PRN PRN PRN Reason: Pain Score 6-10/10 Ferrous Sulfate (Ferrous Sulfate) 325 mg PO DAILY@0800 [facility] Folic Acid (Folic Acid) 1 mg PO DAILYCM [facility] Glucagon () 1 mg IM .X1 PRN PRN Reason: Hypoglycemia Hydroxyzine Pamoate (Vistaril Pamoate Capsule) 25 mg PO BID PRN PRN PRN Reason: ANXIETY Cefazolin Sodium 2 gm/ Sodium (Chloride) 110 mls @ 150 mls/hr IV X1 ONE Stop: 10/10/19 09:43 Tranexamic Acid 1,000 mg/ (Sodium Chloride) 110 mls @ 440 mls/hr IV PREOP ONE Stop: 10/10/19 09:14 Tranexamic Acid 1,000 mg/ (Sodium Chloride) 110 mls @ 440 mls/hr IV .8 HRS POST-OP ONE Stop: 10/10/19 10:14 Sodium Chloride () 500 mls @ 15 mls/hr IV PRN PRN PRN Reason: Blood Transfusion Last Infusion: 10/09/19 22:24 Dose: 0 mls/hr Documented by: Sodium Chloride () 250 mls @ 15 mls/hr IV .[id number] PRN PRN Reason: Saline Flush Last Infusion: 10/10/19 00:28 Dose: 0 mls/hr Documented by: Insulin Human Lispro (Humalog Kwikpen (Bkc)) 0 unit SC TIDAC [facility]; Protocol Last Admin: 10/10/19 06:44 Dose: Not Given Documented by: Levetiracetam (Keppra Oral Solution) 1,000 mg PO BID [facility] Last Admin: 10/09/19 22:33 Dose: 1,000 mg Documented by: Levothyroxine Sodium (Synthroid) 75 mcg PO DAILY@0600 [facility] Last Admin: 10/10/19 05:26 Dose: Not Given Documented by: Ondansetron HCl (Zofran) 4 mg IV Q8H PRN PRN PRN Reason: NAUSEA/VOMITING Oxycodone HCl (Oxyir) 5 mg PO Q4H PRN PRN PRN Reason: Pain Score 4-5/10 Oxycodone HCl (Oxyir) 10 mg PO Q4H PRN PRN PRN Reason: Pain Score 6-10/10 Last Admin: 10/09/19 15:25 Dose: 10 mg Documented by: Pantoprazole Sodium (Protonix) 40 mg PO DAILY [facility] Pregabalin (Lyrica) 300 mg PO BID [facility] Last Admin: 10/09/19 22:33 Dose: 300 mg Documented by: Quetiapine Fumarate (Seroquel) 400 mg PO QHS [facility] Last Admin: 10/09/19 22:26 Dose: 400 mg Documented by: Sodium Chloride () 10 - 40 ml IV UD PRN PRN Reason: SALINE FLUSH Last Admin: 10/10/19 06:17 Dose: 10 ml Documented by: Trazodone HCl (Desyrel) 50 mg PO QHS PRN PRN Reason: SLEEP Assessment/Plan RECOMMENDATIONS: 1. Stop proton pump inhibitor, given significant hypomagnesemia. 2. Recheck calcium, magnesium and CBC this morning. 3. Aggressive electrolyte repletion prior to consideration for surgical intervention of the patient's femoral neck fracture. 4. Monitor H&H daily. Transfuse if hemoglobin drops below 7 g/dL. 5. Continue current pain control regimen. IMPRESSIONS: 1. Near syncope May have been secondary to presenting anemia versus seizure activity. Intravascular volume depletion may also be another contributing etiology. These issues are being addressed as outlined below. 2. New onset seizure activity Unclear precipitating etiology. However, the patient's presenting electrolyte derangements, including hypocalcemia may have been a precipitating etiology. The patient's calcium is in the process of being repleted. The patient was also started on Keppra. No further seizure activity has been noted. MRI and EEG were unremarkable. 3. Profound hypomagnesemia/hypocalcemia Likely secondary to GI losses coupled with concurrent use of PPI in his home environment. The patient's presenting hypomagnesemia may have been a cause for his hypocalcemia. The patient's electrolyte derangements are currently being addressed with supplementation. Plan to recheck levels after repletion. Omeprazole has been discontinued. 4. Acute transverse fracture of the right femoral neck Tentative plans for surgical intervention tomorrow. I would strongly recommend that the patient's electrolyte derangements be corrected prior to considering any form of surgical intervention. Continue current pain control regimen. 5. Anemia There are no overt signs of gastrointestinal blood loss. The patient has received 2 units of packed red blood cells and has a stable H&H today. Plan to check hemoglobin daily. Plan to transfuse if hemoglobin drops below 7 g/dL. 6. History of left Pancoast tumor/non-small cell lung cancer/tobacco dependency/GERD/diabetes mellitus Complicates care, management, recovery and prognosis. I personally spent 5 minutes discussing the deleterious effects of continued tobacco use with the patient, including modalities which could be utilized to achieve a smoke-free lifestyle. Nicotine replacement therapy can be offered to the patient while admitted to the hospital. Continue sliding scale insulin coverage. This note was generated with [email or web address] dictation software. It may contain incorrect words, spelling, and punctuation that were not noted in checking the note before signing. Inpatient E&M: 08675 Init Hosp L3 - Behavior Interventions Behavior Intervention: 22681 Smoking Cessation 3-10 min
[2019-10-10 07:10] LABS: Absolute Lymphocyte Count 0.18 X10^3/uL (0.83-4.51); Absolute Neutrophil Count 5.2 X10^3/uL (2.0-7.7); Eosinophil# 0.02 X10^3/uL; Eosinophils% 0.4 % (0-5); Hematocrit 28.5 % (40-54); Hemoglobin 10.1 g/dL (13.0-16.5); Lymphocyte # 0.18 X10^3/ul (4.0); Lymphocyte % 3.2 % (19-41); Mean Corp Hgb Conc 35.4 g/dL (32-36); Mean Corpuscular Hgb 35.3 pg (27.0-32.0); Mean Corpuscular Volume 99.7 fL (80-94); Mean Platelet Vol. 12.3 fl (6.2-12.0); Monocyte# 0.27 X10^3/uL; Monocyte% 4.7 % (0-10); NRBC Flagged by Analyzer 0 % (0-5); Neutrophil # 5.19 X10^3/uL (2.7-7.7); Neutrophil % 90.8 % (47-70); POSITIVE COUNT YES; POSITIVE DIFFERENTIAL YES; POSITIVE MORPHOLOGY YES; Platelet Count 72 K/mm3 (150-450); RBC Distribution Width CV 18.6 % (11.6-14.6); RBC Distribution Width SD 65.5 fl (35.1-43.9); Red Blood Count 2.86 M/mm3 (4.6-6.2); White Blood Count 5.7 K/mm3 (4.4-11.0)
[2019-10-10 07:12] LABS: Differential Indicated SCAN CRITERIA MET
[2019-10-10 07:21] LABS: Magnesium 1.5 mg/dL (1.6-2.6)
[2019-10-10 07:32] LABS: Calcium,Total 6.1 mg/dL (8.5-10.1)
[2019-10-10 07:35] LABS: Hemoglobin A1c 5.4 % (4.2-6.3)
[2019-10-10 07:39] LABS: Differential Comment SCANNED; Platelet Estimate MOD DEC (ADEQ)
[2019-10-10 07:40] LABS: Anisocytosis 2+; Macrocytosis 1+; Microcytosis 1+; Platelet Morphology LARGE
[2019-10-10 07:44] LABS: PTHIN 36.4 pg/mL (18.4-80.1)
[2019-10-10 08:14] LABS: M R Staph aureus DNA By PCR Negative (Negative); Probe Check PASS; Specimen Processing Control PASS
[2019-10-10] MEDS: Magnesium Sulfate 4gm/100mL 4 GM/100 ML IV.SOLN. IV (08:17)
[2019-10-10] MEDS: Citalopram 40 MG TABLET PO (08:18)
[2019-10-10] MEDS: Folic Acid 1 MG Tablet PO (08:18)
[2019-10-10] MEDS: Ferrous Sulfate 325 MG Tablet PO (08:18)
[2019-10-10] MEDS: Pregabalin 75 MG Capsule 300 MG PO ×2 (08:21→21:55)
[2019-10-10] MEDS: Acetaminophen 325 MG Tablet 650 MG PO (08:35)
[2019-10-10] MEDS: oxyCODONE 5 MG Tablet 10 MG PO (08:35)
--- NOTE | 2019-10-10 09:17 | CASEMGMT ---
Social Work Note SW received call from pt's CM Yoselyn Henderson at [facility]. SW updated Yoselyn on pt's admission to [facility] and likely plan for surgery once pt is medically cleared. Yoselyn states pt has aide services through a private agency and has home delivered meals. Yoselyn asked if pt will be going to SNF/rehab at discharge. MARTY informed Yoselyn that it just depends on how pt does after surgery. Yoselyn states understanding, Yoselyn states she briefly spoke with pt regarding SNF/rehab and pt was not agreeable at this time. Brittni Weeks [employer]ING [employer]ORING MACHINE HELPER, CHUCK WAGON DRIVER
--- NOTE | 2019-10-10 09:23 | CASEMGMT ---
RN CM Assessment Note Presentation: New onset seizure, severe hypocalcemia, Femoral neck fx-surgery planned for 10/11/19 Intro role of CM and purpose of RN CM assessment to patient in room. Pt is awake, alert and able to participate in assessment.Demographics, PCP and Pharmacy verified. Pt states generally he is able to care for self at home. Has aide services, mostly for laundry, cleaning. Does own ADL's. Meals are delivery through [employer]. PCP: Dr. Esparza Specialists: Dr. Fady mohr Preferred Pharmacy: [facility] Insurance: [employer] Prescription Benefit: yes LNOK : Mother, Heather Bobby Living Arrangements: Lives in second floor apartment with elevator. Pt states he did do stairs occasionally up until a month ago. Now it is too difficult for him. States he completes own ADL's, heating meals. Aides assist with laundry and light housekeeping. DME: walker, quad cane, blood glucose monitoring equipment HHC: no skilled home care SW Referral: pt has passport services. Patient DC goals: pt states he is unsure due to surgery tomorrow. DANG VALENTIN explained PT/OT would work with pt when ordered and will discuss recommendations for dc. DC PLAN: Home with [facility] vs Rehab/SNF. DANG VALENTIN advised to contact cm for any concerns/needs that may arise. Carmelo CHAPMAN RN ACM
[2019-10-10] MEDS: levETIRAcetam Oral Solution 500 MG/5 ML 1000 MG PO ×2 (10:58→21:48)
[2019-10-10 11:15] LABS: Bedside Glucose 225 mg/dL (70-110)
[2019-10-10] MEDS: Insulin Lispro 100 UNIT/ML INSULN.PEN SC ×2 (11:28→16:27)
--- NOTE | 2019-10-10 13:24 | PCM.PROGNOTE ---
Subjective: Patient was seen and examined today in the ICU, he is resting quietly. I talked with pulmonary medicine about his care today, pulmonary medicine does not feel the patient is stable enough to undergo an ORIF of his hip for his hip fracture. - Physical Exam Vitals/I&O's: Vital Signs Temp Pulse Resp BP Pulse Ox 97.8 F 96 18 95/69 97 10/10/19 12:00 10/10/19 13:00 10/10/19 13:00 10/10/19 13:00 10/10/19 13:00 Oxygen Flow Rate (L/min) 2 Oxygen Delivery Method Nasal Cannula Weight: 78.7 kg Body Mass Index (BMI) 26.4 Intake and Output for Last 24 Hours 10/08/19 10/09/19 10/10/19 23:59 23:59 23:59 Intake Total 2720.50 / 2720.50 1549 / 1549 Output Total 0 / 0 2550 / 2550 Balance 2720.50 / 2720.50 -1001 / -1001 General: Alert, Oriented x3, Cooperative, No apparent distress, Well developed HEENT: Atraumatic, PERRLA, EOMI, Normocephalic Oral: Moist Mucosa Neck: Supple, No JVD, Trachea Midline, Thyroid Normal Size and Texture Lungs: Clear to auscultation, Normal air movement, No rhonchi, No wheeze, No rales Cardiovascular: Regular rate, Regular Rhythm, Normal S1, Normal S2, No murmurs, PMI Normal, No rub noted Abdomen: Bowel Sounds Present, Soft, Non Tender, Non-Distended, No hernias noted Extremities: No clubbing, No cyanosis, No edema, Capillary Refill Less than 3 Seconds Skin: No rashes, No breakdown Neurological: Cranial nerves II-XII grossly intact, Neuro grossly intact, Sensory exam intact to light touch and pain Psych/Mental Status: Normal Affect, Appropriate, Alert and oriented to time, place, person, mood and affect Laboratory Results 10/09/19 12:20: Crossmatch See Detail 10/09/19 12:20: PTH Intact 36.4 10/09/19 15:40: Magnesium Cancelled, TSH Cancelled 10/09/19 15:40: Vitamin B12 1019 H, Vitamin D 25-Hydroxy 8.6 10/09/19 15:40: Magnesium 0.4 L*, Iron 84, TIBC 131 L, Iron Saturation 64.1 H, Ferritin 1996 H, Folate 42.70, TSH 1.71 10/09/19 17:13: POC Glucose 96 10/09/19 19:45: Sodium 134 L, Potassium 3.6, Chloride 104, Carbon Dioxide 22.0, Anion Gap 8, BUN 13, Creatinine 1.30, Estim Creat Clear Calc 59.32, Est GFR (MDRD) Af Amer 73, Est GFR (MDRD) Non-Af 61, BUN/Creatinine Ratio 10.0, Glucose 120 H, Calcium 5.4 L* 10/09/19 22:21: POC Glucose 123 H 10/09/19 22:49: MRSA (PCR) Negative 10/10/19 01:55: Sodium 135 L, Potassium 3.8, Chloride 106, Carbon Dioxide 22.0, Anion Gap 7, BUN 12, Creatinine 1.00, Estim Creat Clear Calc 77.12, Est GFR (MDRD) Af Amer 99, Est GFR (MDRD) Non-Af 82, BUN/Creatinine Ratio 12.0, Glucose 110 H, Calcium 5.3 L* 10/10/19 04:50: WBC Cancelled, Corrected WBC Cancelled, RBC Cancelled, Hgb Cancelled, Hct Cancelled, MCV Cancelled, MCH Cancelled, MCHC Cancelled, RDW Std Deviation Cancelled, RDW Coeff of Sophie Cancelled, Plt Count Cancelled, MPV Cancelled, Immature Gran % (Auto) Cancelled, Neut % (Auto) Cancelled, Lymph % (Auto) Cancelled, Lynn % (Auto) Cancelled, Eos % (Auto) Cancelled, Baso % (Auto) Cancelled, Absolute Neuts (auto) Cancelled, Absolute Lymphs (auto) Cancelled, Total Counted Cancelled, Neutrophils % (Manual) Cancelled, Band Neutrophils % Cancelled, Lymphocytes % (Manual) Cancelled, Monocytes % (Manual) Cancelled, Eosinophils % (Manual) Cancelled, Basophils % (Manual) Cancelled, Metamyelocytes % Cancelled, Myelocytes % Cancelled, Promyelocytes % Cancelled, Blast Cells % Cancelled, Plasma Cell % (Manual) Cancelled, Other Cells % Cancelled, Nucleated RBC % Cancelled, Nucleated RBCs/100 WBC Cancelled, Differential Comment Cancelled, Diff Path Review Cancelled, Hypersegmented Neuts Cancelled, Atypical Lymphocytes Cancelled, Reactive Lymphocytes Cancelled, Smudge Cells Cancelled, Toxic Granulation Cancelled, Toxic Vacuolation Cancelled, Dohle Bodies Cancelled, Roxana Rods Cancelled, Platelet Estimate Cancelled, Plt Morphology Comment Cancelled, RBC Morphology Cancelled, Polychromasia Cancelled, Hypochromasia Cancelled, Poikilocytosis Cancelled, Basophilic Stippling Cancelled, Anisocytosis Cancelled, Microcytosis Cancelled, Macrocytosis Cancelled, Spherocytes Cancelled, Sickle Cells Cancelled, Target Cells Cancelled, Tear Drop Cells Cancelled, Ovalocytes Cancelled, Stomatocytes Cancelled, [place] Bodies Cancelled, Jaffrey Cells Cancelled, Bite Cells Cancelled, Crenated Cell Cancelled, Acanthocytes (Spur) Cancelled, Rouleaux Cancelled, Schistocytes Cancelled 10/10/19 04:50: Sodium 136, Potassium 4.2, Chloride 107, Carbon Dioxide 22.0, Anion Gap 7, BUN 11, Creatinine 1.04, Estim Creat Clear Calc 74.15, Est GFR (MDRD) Af Amer 95, Est GFR (MDRD) Non-Af 78, BUN/Creatinine Ratio 10.6, Glucose 113 H, Calcium 6.1 L*, Magnesium 1.6 10/10/19 04:50: Cortisol 14.30 10/10/19 04:50: WBC Cancelled, Corrected WBC Cancelled, RBC Cancelled, Hgb Cancelled, Hct Cancelled, MCV Cancelled, MCH Cancelled, MCHC Cancelled, RDW Std Deviation Cancelled, RDW Coeff of Sophie Cancelled, Plt Count Cancelled, MPV Cancelled, Immature Gran % (Auto) Cancelled, Neut % (Auto) Cancelled, Lymph % (Auto) Cancelled, Lynn % (Auto) Cancelled, Eos % (Auto) Cancelled, Baso % (Auto) Cancelled, Absolute Neuts (auto) Cancelled, Absolute Lymphs (auto) Cancelled, Total Counted Cancelled, Neutrophils % (Manual) Cancelled, Band Neutrophils % Cancelled, Lymphocytes % (Manual) Cancelled, Monocytes % (Manual) Cancelled, Eosinophils % (Manual) Cancelled, Basophils % (Manual) Cancelled, Metamyelocytes % Cancelled, Myelocytes % Cancelled, Promyelocytes % Cancelled, Blast Cells % Cancelled, Plasma Cell % (Manual) Cancelled, Other Cells % Cancelled, Nucleated RBC % Cancelled, Nucleated RBCs/100 WBC Cancelled, Differential Comment Cancelled, Diff Path Review Cancelled, Hypersegmented Neuts Cancelled, Atypical Lymphocytes Cancelled, Reactive Lymphocytes Cancelled, Smudge Cells Cancelled, Toxic Granulation Cancelled, Toxic Vacuolation Cancelled, Dohle Bodies Cancelled, Roxana Rods Cancelled, Platelet Estimate Cancelled, Plt Morphology Comment Cancelled, RBC Morphology Cancelled, Polychromasia Cancelled, Hypochromasia Cancelled, Poikilocytosis Cancelled, Basophilic Stippling Cancelled, Anisocytosis Cancelled, Microcytosis Cancelled, Macrocytosis Cancelled, Spherocytes Cancelled, Sickle Cells Cancelled, Target Cells Cancelled, Tear Drop Cells Cancelled, Ovalocytes Cancelled, Stomatocytes Cancelled, [place] Bodies Cancelled, Jaffrey Cells Cancelled, Bite Cells Cancelled, Crenated Cell Cancelled, Acanthocytes (Spur) Cancelled, Rouleaux Cancelled, Schistocytes Cancelled 10/10/19 05:45: Cortisol 31.20 H 10/10/19 05:45: Magnesium 1.5 L 10/10/19 05:45: Calcium 6.1 L* 10/10/19 06:34: POC Glucose 98 10/10/19 06:52: Hemoglobin A1c 5.4 10/10/19 06:52: WBC 5.7, RBC 2.86 L, Hgb 10.1 L, Hct 28.5 L, MCV 99.7 H D, MCH 35.3 H, MCHC 35.4, RDW Std Deviation 65.5 H, RDW Coeff of Sophie 18.6 H, Plt Count 72 L, MPV 12.3 H, Immature Gran % (Auto) 0.900, Neut % (Auto) 90.8 H, Lymph % (Auto) 3.2 L, Lynn % (Auto) 4.7, Eos % (Auto) 0.4, Baso % (Auto) 0.0, Absolute Neuts (auto) 5.2, Absolute Lymphs (auto) 0.18 L, Nucleated RBC % 0, Differential Comment SCANNED, Platelet Estimate MOD DEC, Plt Morphology Comment LARGE, Anisocytosis 2+, Microcytosis 1+, Macrocytosis 1+ 10/10/19 11:06: POC Glucose 225 H Current Medications Acetaminophen (Tylenol) 650 mg PO Q6H PRN PRN PRN Reason: Pain Score 1-10/Temp > 100.7 F Last Admin: 10/10/19 08:35 Dose: 650 mg Documented by: Atorvastatin Calcium (Lipitor) 40 mg PO QHS [facility] Last Admin: 10/09/19 22:26 Dose: 40 mg Documented by: Citalopram Hydrobromide (Celexa) 40 mg PO DAILY [facility] Last Admin: 10/10/19 08:18 Dose: 40 mg Documented by: Dextrose (D50w Syringe) 0 gm IV X1 PRN; Protocol PRN Reason: Hypoglycemia Diazepam (Valium) 5 mg PO Q8H PRN PRN Reason: MUSCLES SPASMS Last Admin: 10/09/19 17:41 Dose: 5 mg Documented by: Ergocalciferol (Vitamin D) 50,000 unit PO Q7D [facility] Last Admin: 10/09/19 22:26 Dose: 50,000 unit Documented by: Fentanyl Citrate (Sublimaze (100mcg Ampule)) 25 mcg IV Q4H PRN PRN PRN Reason: Pain Score 6-10/10 Ferrous Sulfate (Ferrous Sulfate) 325 mg PO DAILY@0800 [facility] Last Admin: 10/10/19 08:18 Dose: 325 mg Documented by: Folic [facility] (Folic Acid) [facility] Last Admin: 10/10/19 08:18 Dose: 1 mg Documented by: Glucagon () 1 mg IM .X1 PRN PRN Reason: Hypoglycemia Hydroxyzine Pamoate (Vistaril Pamoate Capsule) 25 mg PO BID PRN PRN PRN Reason: ANXIETY Sodium Chloride () 500 mls @ 15 mls/hr IV PRN PRN PRN Reason: Blood Transfusion Last Infusion: 10/09/19 22:24 Dose: 0 mls/hr Documented by: Sodium Chloride () 250 mls @ 15 mls/hr IV .[id number] PRN PRN Reason: Saline Flush Last Infusion: 10/10/19 00:28 Dose: 0 mls/hr Documented by: Insulin Human Lispro (Humalog Kwikpen (Bkc)) 0 unit SC TIDAC [facility]; Protocol Last Admin: 10/10/19 11:28 Dose: 2 u Documented by: Levetiracetam (Keppra Oral Solution) 1,000 mg PO BID [facility] Last Admin: 10/10/19 10:58 Dose: 1,000 mg Documented by: Levothyroxine Sodium (Synthroid) 75 mcg PO DAILY@0600 [facility] Last Admin: 10/10/19 05:26 Dose: Not Given Documented by: Ondansetron HCl (Zofran) 4 mg IV Q8H PRN PRN PRN Reason: NAUSEA/VOMITING Oxycodone HCl (Oxyir) 5 mg PO Q4H PRN PRN PRN Reason: Pain Score 4-5/10 Oxycodone HCl (Oxyir) 10 mg PO Q4H PRN PRN PRN Reason: Pain Score 6-10/10 Last Admin: 10/10/19 08:35 Dose: 10 mg Documented by: Pregabalin (Lyrica) 300 mg PO BID [facility] Last Admin: 10/10/19 08:21 Dose: 300 mg Documented by: Quetiapine Fumarate (Seroquel) 400 mg PO QHS [facility] Last Admin: 10/09/19 22:26 Dose: 400 mg Documented by: Sodium Chloride () 10 - 40 ml IV UD PRN PRN Reason: SALINE FLUSH Last Admin: 10/10/19 06:17 Dose: 10 ml Documented by: Trazodone HCl (Desyrel) 50 mg PO QHS PRN PRN Reason: SLEEP Medical Necessity - Tobacco Use Smoking Status: Heavy Smoker (>10/day) Tobacco Use: Cigarettes Assessment/Plan #1 new onset seizure probably secondary to hypocalcemia-patient will remain on Keppra, there is no evidence of brain metastases from his lung cancer at this time. #2 hypocalcemia-probably secondary to his non-small cell lung cancer, calcium replacement was given to the patient #3 right femoral neck fracture-patient is not medically stable for surgery at this time, surgery will most likely occur tomorrow #4 anemia-probably secondary to chemotherapy-patient's hemoglobin this morning was 10.1 her 2 units of packed red blood cells #5 non-small cell lung cancer #6 essential hypertension #7 type 2 diabetes-monitor blood sugars at this time #8 psychiatric disorder-type unknown, patient is on antidepressants and antianxiety medications. Inpatient E&M: 72277 [facility] Hosp L2
[2019-10-10 14:59] LABS: Calcium,Total 6.4 mg/dL (8.5-10.1); Magnesium 2.7 mg/dL (1.6-2.6)
[2019-10-10 16:31] LABS: Bedside Glucose 182 mg/dL (70-110)
[2019-10-10] MEDS: QUEtiapine 100 MG Tablet 400 MG PO (21:49)
[2019-10-10] MEDS: Atorvastatin Calcium 40 MG Tablet PO (21:49)
[2019-10-10 22:06] LABS: Bedside Glucose 136 mg/dL (70-110)
[2019-10-11] VITALS (33 sets, daily range): BP systolic 87–134; BP diastolic 52–85; PULSE 79–106; RESP 12–20; TEMP 36.2–37.1; O2SAT 90–100
[2019-10-11] MEDS: Levothyroxine 75 MCG Tablet PO (06:06)
--- NOTE | 2019-10-11 06:24 | PN_ITS ---
Subjective: The patient was seen and examined at the bedside this morning. Events from the last 24 hours have been reviewed. The patient is currently afebrile, hemodynamically stable and maintaining appropriate oxygen saturations on 2 L/min via nasal cannula. The patient underwent aggressive electrolyte repletion yesterday. Magnesium improved and calcium this morning was noted to be 6.4. The patient's corrected calcium level for his degree of hypoalbuminemia was approximately 8.0. The patient is currently receiving 2 g of additional calcium supplementation along with potassium. He is currently scheduled for surgery later this afternoon. Objective: The patient's most recent lab work, culture data and imaging studies have all been personally reviewed. General: Alert, Cooperative HEENT: Atraumatic, Normocephalic Oral: No Gingival or Mucosal Lesions/ Ulcerations Neck: Supple, No Nodes, Trachea Midline Lungs: No rhonchi, No wheeze, No rales, Diminished Cardiovascular: Regular rate, Regular Rhythm, Normal S1, Normal S2, No murmurs Abdomen: Bowel Sounds Present, Soft, Non Tender Extremities: No clubbing, No cyanosis, No edema Skin: No breakdown Musculoskeletal: No Muscle Wasting Lymphatic: No Cervical, Supraclavicular, or Inguinal Adenopathy Neurological: Cranial nerves II-XII grossly intact, Neuro grossly intact Psych/Mental Status: Normal Affect, Appropriate Vital Signs Temp Pulse Resp BP Pulse Ox 98.1 F 103 H 16 94/56 L 99 10/11/19 05:00 10/11/19 05:00 10/11/19 05:00 10/11/19 05:00 10/11/19 05:00 Oxygen Flow Rate (L/min) 2 Oxygen Delivery Method Nasal Cannula Weight: 171 lb 11.841 oz Body Mass Index (BMI) 26.4 Intake and Output for Last 24 Hours 10/09/19 10/10/19 10/11/19 23:59 23:59 23:59 Intake Total 2720.50 / 2720.50 1789 / 1789 Output Total 0 / 0 3625 / 4375 1500 / 1500 Balance 2720.50 / 2720.50 -1836 / -2586 -1500 / -1500 Labs (Last 48 Hours) 10/09/19 10/09/19 10/09/19 10:54 10:54 10:54 WBC Cancelled Corrected WBC Cancelled RBC Cancelled Hgb Cancelled Hct Cancelled MCV Cancelled MCH Cancelled MCHC Cancelled RDW Std Deviation Cancelled RDW Coeff of Sophie Cancelled Plt Count Cancelled MPV Cancelled Immature Gran % (Auto) Cancelled Neut % (Auto) Cancelled Lymph % (Auto) Cancelled [place] % (Auto) Cancelled Eos % (Auto) Cancelled Baso % (Auto) Cancelled Absolute Neuts (auto) Cancelled Absolute Lymphs (auto) Cancelled Total Counted Cancelled Neutrophils % (Manual) Cancelled Band Neutrophils % Cancelled Lymphocytes % (Manual) Cancelled Monocytes % (Manual) Cancelled Eosinophils % (Manual) Cancelled Basophils % (Manual) Cancelled Metamyelocytes % Cancelled Myelocytes % Cancelled Promyelocytes % Cancelled Blast Cells % Cancelled Plasma Cell % (Manual) Cancelled Other Cells % Cancelled Nucleated RBC % Cancelled Nucleated RBCs/100 WBC Cancelled Differential Comment Cancelled Diff Path Review Cancelled Hypersegmented Neuts Cancelled Atypical Lymphocytes Cancelled Reactive Lymphocytes Cancelled Smudge Cells Cancelled Toxic Granulation Cancelled Toxic Vacuolation Cancelled Dohle Bodies Cancelled Roxana Rods Cancelled Platelet Estimate Cancelled Plt Morphology Comment Cancelled RBC Morphology Cancelled Polychromasia Cancelled Hypochromasia Cancelled Poikilocytosis Cancelled Basophilic Stippling Cancelled Anisocytosis Cancelled Microcytosis Cancelled Macrocytosis Cancelled Spherocytes Cancelled Sickle Cells Cancelled Target Cells Cancelled Tear Drop Cells Cancelled Ovalocytes Cancelled Stomatocytes Cancelled [place] Bodies Cancelled [place] Cells Cancelled Bite Cells Cancelled Crenated Cell Cancelled Acanthocytes (Spur) Cancelled Rouleaux Cancelled Schistocytes Cancelled PT Cancelled INR Cancelled APTT Sodium Cancelled Potassium Cancelled Chloride Cancelled Carbon Dioxide Cancelled Anion Gap Cancelled BUN Cancelled Creatinine Cancelled Estim Creat Clear Calc Cancelled Est GFR (MDRD) Af Amer Cancelled Est GFR (MDRD) Non-Af Cancelled BUN/Creatinine Ratio Cancelled Glucose Cancelled Hemoglobin A1c Calcium Cancelled Magnesium Iron TIBC Iron Saturation Ferritin Total Bilirubin Cancelled AST Cancelled ALT Cancelled Alkaline Phosphatase Cancelled Troponin I Cancelled Total Protein Cancelled Albumin Cancelled Globulin Cancelled Albumin/Globulin Ratio Cancelled Vitamin B12 Vitamin D 25-Hydroxy Folate TSH PTH Intact Cortisol MRSA (PCR) POC Glucose Blood Type Antibody Screen Crossmatch 04/12/2210/09/19 10/09/19 10:54 12:00 12:00 WBC 5.4 Corrected WBC RBC 1.72 L Hgb 6.5 L Hct 18.6 L MCV 108.1 H MCH 37.8 H MCHC 34.9 RDW Std Deviation 61.1 H RDW Coeff of Sophie 15.7 H Plt Count 65 L MPV 11.5 Immature Gran % (Auto) 1.500 H Neut % (Auto) 86.3 H Lymph % (Auto) 5.9 L [place] % (Auto) 6.3 Eos % (Auto) 0.0 Baso % (Auto) 0.0 Absolute Neuts (auto) 4.7 Absolute Lymphs (auto) 0.32 L Total Counted Neutrophils % (Manual) Band Neutrophils % Lymphocytes % (Manual) Monocytes % (Manual) Eosinophils % (Manual) Basophils % (Manual) Metamyelocytes % Myelocytes % Promyelocytes % Blast Cells % Plasma Cell % (Manual) Other Cells % Nucleated RBC % 0 Nucleated RBCs/100 WBC Differential Comment Diff Path Review Hypersegmented Neuts Atypical Lymphocytes Reactive Lymphocytes Smudge Cells Toxic Granulation Toxic Vacuolation Dohle Bodies Roxana Rods Platelet Estimate MOD DEC Plt Morphology Comment RBC Morphology Polychromasia Hypochromasia 1+ Poikilocytosis Basophilic Stippling Anisocytosis Microcytosis Macrocytosis RARE Spherocytes Sickle Cells Target Cells Tear Drop Cells Ovalocytes Stomatocytes [place] Bodies [place] Cells Bite Cells Crenated Cell Acanthocytes (Spur) Rouleaux Schistocytes PT 15.7 H INR 1.3 APTT Cancelled Sodium Potassium Chloride Carbon Dioxide Anion Gap BUN Creatinine Estim Creat Clear Calc Est GFR (MDRD) Af Amer Est GFR (MDRD) Non-Af BUN/Creatinine Ratio Glucose Hemoglobin A1c Calcium Magnesium Iron TIBC Iron Saturation Ferritin Total Bilirubin AST ALT Alkaline Phosphatase Troponin I Total Protein Albumin Globulin Albumin/Globulin Ratio Vitamin B12 Vitamin D 25-Hydroxy Folate TSH PTH Intact Cortisol MRSA (PCR) POC Glucose Blood Type Cancelled Antibody Screen Cancelled Crossmatch 10/09/19 10/09/19 10/09/19 12:00 12:00 12:20 WBC Corrected WBC RBC Hgb Hct MCV MCH MCHC RDW Std Deviation RDW Coeff of Sophie Plt Count MPV Immature Gran % (Auto) Neut % (Auto) Lymph % (Auto) [place] % (Auto) Eos % (Auto) Baso % (Auto) Absolute Neuts (auto) Absolute Lymphs (auto) Total Counted Neutrophils % (Manual) Band Neutrophils % Lymphocytes % (Manual) Monocytes % (Manual) Eosinophils % (Manual) Basophils % (Manual) Metamyelocytes % Myelocytes % Promyelocytes % Blast Cells % Plasma Cell % (Manual) Other Cells % Nucleated RBC % Nucleated RBCs/100 WBC Differential Comment Diff Path Review Hypersegmented Neuts Atypical Lymphocytes Reactive Lymphocytes Smudge Cells Toxic Granulation Toxic Vacuolation Dohle Bodies Roxana Rods Platelet Estimate Plt Morphology Comment RBC Morphology Polychromasia Hypochromasia Poikilocytosis Basophilic Stippling Anisocytosis Microcytosis Macrocytosis Spherocytes Sickle Cells Target Cells Tear Drop Cells Ovalocytes Stomatocytes [place] Bodies [place] Cells Bite Cells Crenated Cell Acanthocytes (Spur) Rouleaux Schistocytes PT INR APTT Sodium 132 L Potassium 3.1 L Chloride 102 Carbon Dioxide 20.0 L Anion Gap 10 BUN 12 Creatinine 1.55 H Estim Creat Clear Calc 49.75 Est GFR (MDRD) Af Amer 60 Est GFR (MDRD) Non-Af 49 L BUN/Creatinine Ratio 7.7 L Glucose 99 Hemoglobin A1c Calcium < 5.0 L* Magnesium Iron TIBC Iron Saturation Ferritin Total Bilirubin 0.20 AST 30 ALT 14 L Alkaline Phosphatase 95 Troponin I < 0.015 Total Protein 6.3 L Albumin 2.0 L Globulin 4.3 H Albumin/Globulin Ratio 0.5 L Vitamin B12 Vitamin D 25-Hydroxy Folate TSH PTH Intact Cortisol MRSA (PCR) POC Glucose Blood Type O POSITIVE Antibody Screen NEGATIVE Crossmatch See Detail 10/09/19 10/09/19 10/09/19 12:20 15:40 15:40 WBC Corrected WBC RBC Hgb Hct MCV MCH MCHC RDW Std Deviation RDW Coeff of Sophie Plt Count MPV Immature Gran % (Auto) Neut % (Auto) Lymph % (Auto) [place] % (Auto) Eos % (Auto) Baso % (Auto) Absolute Neuts (auto) Absolute Lymphs (auto) Total Counted Neutrophils % (Manual) Band Neutrophils % Lymphocytes % (Manual) Monocytes % (Manual) Eosinophils % (Manual) Basophils % (Manual) Metamyelocytes % Myelocytes % Promyelocytes % Blast Cells % Plasma Cell % (Manual) Other Cells % Nucleated RBC % Nucleated RBCs/100 WBC Differential Comment Diff Path Review Hypersegmented Neuts Atypical Lymphocytes Reactive Lymphocytes Smudge Cells Toxic Granulation Toxic Vacuolation Dohle Bodies Roxana Rods Platelet Estimate Plt Morphology Comment RBC Morphology Polychromasia Hypochromasia Poikilocytosis Basophilic Stippling Anisocytosis Microcytosis Macrocytosis Spherocytes Sickle Cells Target Cells Tear Drop Cells Ovalocytes Stomatocytes [place] Bodies [place] Cells Bite Cells Crenated Cell Acanthocytes (Spur) Rouleaux Schistocytes PT INR APTT Sodium Potassium Chloride Carbon Dioxide Anion Gap BUN Creatinine Estim Creat Clear Calc Est GFR (MDRD) Af Amer Est GFR (MDRD) Non-Af BUN/Creatinine Ratio Glucose Hemoglobin A1c Calcium Magnesium Cancelled Iron TIBC Iron Saturation Ferritin Total Bilirubin AST ALT Alkaline Phosphatase Troponin I Total Protein Albumin Globulin Albumin/Globulin Ratio Vitamin B12 1019 H Vitamin D 25-Hydroxy 8.6 Folate TSH Cancelled PTH Intact 36.4 Cortisol MRSA (PCR) POC Glucose Blood Type Antibody Screen Crossmatch 10/09/19 10/09/19 10/09/19 15:40 17:13 19:45 WBC Corrected WBC RBC Hgb Hct MCV MCH MCHC RDW Std Deviation RDW Coeff of Sophie Plt Count MPV Immature Gran % (Auto) Neut % (Auto) Lymph % (Auto) [place] % (Auto) Eos % (Auto) Baso % (Auto) Absolute Neuts (auto) Absolute Lymphs (auto) Total Counted Neutrophils % (Manual) Band Neutrophils % Lymphocytes % (Manual) Monocytes % (Manual) Eosinophils % (Manual) Basophils % (Manual) Metamyelocytes % Myelocytes % Promyelocytes % Blast Cells % Plasma Cell % (Manual) Other Cells % Nucleated RBC % Nucleated RBCs/100 WBC Differential Comment Diff Path Review Hypersegmented Neuts Atypical Lymphocytes Reactive Lymphocytes Smudge Cells Toxic Granulation Toxic Vacuolation Dohle Bodies Roxana Rods Platelet Estimate Plt Morphology Comment RBC Morphology Polychromasia Hypochromasia Poikilocytosis Basophilic Stippling Anisocytosis Microcytosis Macrocytosis Spherocytes Sickle Cells Target Cells Tear Drop Cells Ovalocytes Stomatocytes [place] Bodies [place] Cells Bite Cells Crenated Cell Acanthocytes (Spur) Rouleaux Schistocytes PT INR APTT Sodium 134 L Potassium 3.6 Chloride 104 Carbon Dioxide 22.0 Anion Gap 8 BUN 13 Creatinine 1.30 Estim Creat Clear Calc 59.32 Est GFR (MDRD) Af Amer 73 Est GFR (MDRD) Non-Af 61 BUN/Creatinine Ratio 10.0 Glucose 120 H Hemoglobin A1c Calcium 5.4 L* Magnesium 0.4 L* Iron 84 TIBC 131 L Iron Saturation 64.1 H Ferritin 1996 H Total Bilirubin AST ALT Alkaline Phosphatase Troponin I Total Protein Albumin Globulin Albumin/Globulin Ratio Vitamin B12 Vitamin D 25-Hydroxy Folate 42.70 TSH 1.71 PTH Intact Cortisol MRSA (PCR) POC Glucose 96 Blood Type Antibody Screen Crossmatch 10/09/19 10/09/19 10/10/19 22:21 22:49 01:55 WBC Corrected WBC RBC Hgb Hct MCV MCH MCHC RDW Std Deviation RDW Coeff of Sophie Plt Count MPV Immature Gran % (Auto) Neut % (Auto) Lymph % (Auto) [place] % (Auto) Eos % (Auto) Baso % (Auto) Absolute Neuts (auto) Absolute Lymphs (auto) Total Counted Neutrophils % (Manual) Band Neutrophils % Lymphocytes % (Manual) Monocytes % (Manual) Eosinophils % (Manual) Basophils % (Manual) Metamyelocytes % Myelocytes % Promyelocytes % Blast Cells % Plasma Cell % (Manual) Other Cells % Nucleated RBC % Nucleated RBCs/100 WBC Differential Comment Diff Path Review Hypersegmented Neuts Atypical Lymphocytes Reactive Lymphocytes Smudge Cells Toxic Granulation Toxic Vacuolation Dohle Bodies Roxana Rods Platelet Estimate Plt Morphology Comment RBC Morphology Polychromasia Hypochromasia Poikilocytosis Basophilic Stippling Anisocytosis Microcytosis Macrocytosis Spherocytes Sickle Cells Target Cells Tear Drop Cells Ovalocytes Stomatocytes [place] Bodies [place] Cells Bite Cells Crenated Cell Acanthocytes (Spur) Rouleaux Schistocytes PT INR APTT Sodium 135 L Potassium 3.8 Chloride 106 Carbon Dioxide 22.0 Anion Gap 7 BUN 12 Creatinine 1.00 Estim Creat Clear Calc 77.12 Est GFR (MDRD) Af Amer 99 Est GFR (MDRD) Non-Af 82 BUN/Creatinine Ratio 12.0 Glucose 110 H Hemoglobin A1c Calcium 5.3 L* Magnesium Iron TIBC Iron Saturation Ferritin Total Bilirubin AST ALT Alkaline Phosphatase Troponin I Total Protein Albumin Globulin Albumin/Globulin Ratio Vitamin B12 Vitamin D 25-Hydroxy Folate TSH PTH Intact Cortisol MRSA (PCR) Negative POC Glucose 123 H Blood Type Antibody Screen Crossmatch 10/10/19 10/10/19 10/10/19 04:50 04:50 04:50 WBC Cancelled Corrected WBC Cancelled RBC Cancelled Hgb Cancelled Hct Cancelled MCV Cancelled MCH Cancelled MCHC Cancelled RDW Std Deviation Cancelled RDW Coeff of Sophie Cancelled Plt Count Cancelled MPV Cancelled Immature Gran % (Auto) Cancelled Neut % (Auto) Cancelled Lymph % (Auto) Cancelled [place] % (Auto) Cancelled Eos % (Auto) Cancelled Baso % (Auto) Cancelled Absolute Neuts (auto) Cancelled Absolute Lymphs (auto) Cancelled Total Counted Cancelled Neutrophils % (Manual) Cancelled Band Neutrophils % Cancelled Lymphocytes % (Manual) Cancelled Monocytes % (Manual) Cancelled Eosinophils % (Manual) Cancelled Basophils % (Manual) Cancelled Metamyelocytes % Cancelled Myelocytes % Cancelled Promyelocytes % Cancelled Blast Cells % Cancelled Plasma Cell % (Manual) Cancelled Other Cells % Cancelled Nucleated RBC % Cancelled Nucleated RBCs/100 WBC Cancelled Differential Comment Cancelled Diff Path Review Cancelled Hypersegmented Neuts Cancelled Atypical Lymphocytes Cancelled Reactive Lymphocytes Cancelled Smudge Cells Cancelled Toxic Granulation Cancelled Toxic Vacuolation Cancelled Dohle Bodies Cancelled Roxana Rods Cancelled Platelet Estimate Cancelled Plt Morphology Comment Cancelled RBC Morphology Cancelled Polychromasia Cancelled Hypochromasia Cancelled Poikilocytosis Cancelled Basophilic Stippling Cancelled Anisocytosis Cancelled Microcytosis Cancelled Macrocytosis Cancelled Spherocytes Cancelled Sickle Cells Cancelled Target Cells Cancelled Tear Drop Cells Cancelled Ovalocytes Cancelled Stomatocytes Cancelled [place] Bodies Cancelled [place] Cells Cancelled Bite Cells Cancelled Crenated Cell Cancelled Acanthocytes (Spur) Cancelled Rouleaux Cancelled Schistocytes Cancelled PT INR APTT Sodium 136 Potassium 4.2 Chloride 107 Carbon Dioxide 22.0 Anion Gap 7 BUN 11 Creatinine 1.04 Estim Creat Clear Calc 74.15 Est GFR (MDRD) Af Amer 95 Est GFR (MDRD) Non-Af 78 BUN/Creatinine Ratio 10.6 Glucose 113 H Hemoglobin A1c Calcium 6.1 L* Magnesium 1.6 Iron TIBC Iron Saturation Ferritin Total Bilirubin AST ALT Alkaline Phosphatase Troponin I Total Protein Albumin Globulin Albumin/Globulin Ratio Vitamin B12 Vitamin D 25-Hydroxy Folate TSH PTH Intact Cortisol 14.30 MRSA (PCR) POC Glucose Blood Type Antibody Screen Crossmatch 10/10/19 10/10/1910/09/20 04:50 05:45 05:45 WBC Cancelled Corrected WBC Cancelled RBC Cancelled Hgb Cancelled Hct Cancelled MCV Cancelled MCH Cancelled MCHC Cancelled RDW Std Deviation Cancelled RDW Coeff of Sophie Cancelled Plt Count Cancelled MPV Cancelled Immature Gran % (Auto) Cancelled Neut % (Auto) Cancelled Lymph % (Auto) Cancelled [place] % (Auto) Cancelled Eos % (Auto) Cancelled Baso % (Auto) Cancelled Absolute Neuts (auto) Cancelled Absolute Lymphs (auto) Cancelled Total Counted Cancelled Neutrophils % (Manual) Cancelled Band Neutrophils % Cancelled Lymphocytes % (Manual) Cancelled Monocytes % (Manual) Cancelled Eosinophils % (Manual) Cancelled Basophils % (Manual) Cancelled Metamyelocytes % Cancelled Myelocytes % Cancelled Promyelocytes % Cancelled Blast Cells % Cancelled Plasma Cell % (Manual) Cancelled Other Cells % Cancelled Nucleated RBC % Cancelled Nucleated RBCs/100 WBC Cancelled Differential Comment Cancelled Diff Path Review Cancelled Hypersegmented Neuts Cancelled Atypical Lymphocytes Cancelled Reactive Lymphocytes Cancelled Smudge Cells Cancelled Toxic Granulation Cancelled Toxic Vacuolation Cancelled Dohle Bodies Cancelled Roxana Rods Cancelled Platelet Estimate Cancelled Plt Morphology Comment Cancelled RBC Morphology Cancelled Polychromasia Cancelled Hypochromasia Cancelled Poikilocytosis Cancelled Basophilic Stippling Cancelled Anisocytosis Cancelled Microcytosis Cancelled Macrocytosis Cancelled Spherocytes Cancelled Sickle Cells Cancelled Target Cells Cancelled Tear Drop Cells Cancelled Ovalocytes Cancelled Stomatocytes Cancelled [place] Bodies Cancelled [place] Cells Cancelled Bite Cells Cancelled Crenated Cell Cancelled Acanthocytes (Sp[place]) Cancelled Rouleaux Cancelled Schistocytes Cancelled PT INR APTT Sodium Potassium Chloride Carbon Dioxide Anion Gap BUN Creatinine Estim Creat Clear Calc Est GFR (MDRD) Af Amer Est GFR (MDRD) Non-Af BUN/Creatinine Ratio Glucose Hemoglobin A1c Calcium Magnesium 1.5 L Iron TIBC Iron Saturation Ferritin Total Bilirubin AST ALT Alkaline Phosphatase Troponin I Total Protein Albumin Globulin Albumin/Globulin Ratio Vitamin B12 Vitamin D 25-Hydroxy Folate TSH PTH Intact Cortisol 31.20 H MRSA (PCR) POC Glucose Blood Type Antibody Screen Crossmatch 10/10/19 10/10/19 10/10/19 05:45 06:34 06:52 WBC Corrected WBC RBC Hgb Hct MCV MCH MCHC RDW Std Deviation RDW Coeff of Sophie Plt Count MPV Immature Gran % (Auto) Neut % (Auto) Lymph % (Auto) [place] % (Auto) Eos % (Auto) Baso % (Auto) Absolute Neuts (auto) Absolute Lymphs (auto) Total Counted Neutrophils % (Manual) Band Neutrophils % Lymphocytes % (Manual) Monocytes % (Manual) Eosinophils % (Manual) Basophils % (Manual) Metamyelocytes % Myelocytes % Promyelocytes % Blast Cells % Plasma Cell % (Manual) Other Cells % Nucleated RBC % Nucleated RBCs/100 WBC Differential Comment Diff Path Review Hypersegmented Neuts Atypical Lymphocytes Reactive Lymphocytes Smudge Cells Toxic Granulation Toxic Vacuolation Dohle Bodies Roxana Rods Platelet Estimate Plt Morphology Comment RBC Morphology Polychromasia Hypochromasia Poikilocytosis Basophilic Stippling Anisocytosis Microcytosis Macrocytosis Spherocytes Sickle Cells Target Cells Tear Drop Cells Ovalocytes Stomatocytes [place] Bodies [place] Cells Bite Cells Crenated Cell Acanthocytes (Spur) Rouleaux Schistocytes PT INR APTT Sodium Potassium Chloride Carbon Dioxide Anion Gap BUN Creatinine Estim Creat Clear Calc Est GFR (MDRD) Af Amer Est GFR (MDRD) Non-Af BUN/Creatinine Ratio Glucose Hemoglobin A1c 5.4 Calcium 6.1 L* Magnesium Iron TIBC Iron Saturation Ferritin Total Bilirubin AST ALT Alkaline Phosphatase Troponin I Total Protein Albumin Globulin Albumin/Globulin Ratio Vitamin B12 Vitamin D 25-Hydroxy Folate TSH PTH Intact Cortisol MRSA (PCR) POC Glucose 98 Blood Type Antibody Screen Crossmatch 10/10/19 10/10/19 10/10/19 06:52 11:06 14:05 WBC 5.7 Corrected WBC RBC 2.86 L Hgb 10.1 L Hct 28.5 L MCV 99.7 H D MCH 35.3 H MCHC 35.4 RDW Std Deviation 65.5 H RDW Coeff of Sophie 18.6 H Plt Count 72 L MPV 12.3 H Immature Gran % (Auto) 0.900 Neut % (Auto) 90.8 H Lymph % (Auto) 3.2 L [place] % (Auto) 4.7 Eos % (Auto) 0.4 Baso % (Auto) 0.0 Absolute Neuts (auto) 5.2 Absolute Lymphs (auto) 0.18 L Total Counted Neutrophils % (Manual) Band Neutrophils % Lymphocytes % (Manual) Monocytes % (Manual) Eosinophils % (Manual) Basophils % (Manual) Metamyelocytes % Myelocytes % Promyelocytes % Blast Cells % Plasma Cell % (Manual) Other Cells % Nucleated RBC % 0 Nucleated RBCs/100 WBC Differential Comment SCANNED Diff Path Review Hypersegmented Neuts Atypical Lymphocytes Reactive Lymphocytes Smudge Cells Toxic Granulation Toxic Vacuolation Dohle Bodies Roxana Rods Platelet Estimate MOD DEC Plt Morphology Comment LARGE RBC Morphology Polychromasia Hypochromasia Poikilocytosis Basophilic Stippling Anisocytosis 2+ Microcytosis 1+ Macrocytosis 1+ Spherocytes Sickle Cells Target Cells Tear Drop Cells Ovalocytes Stomatocytes [place] Bodies [place] Cells Bite Cells Crenated Cell Acanthocytes (Spur) Rouleaux Schistocytes PT INR APTT Sodium Potassium Chloride Carbon Dioxide Anion Gap BUN Creatinine Estim Creat Clear Calc Est GFR (MDRD) Af Amer Est GFR (MDRD) Non-Af BUN/Creatinine Ratio Glucose Hemoglobin A1c Calcium Cancelled Magnesium Cancelled Iron TIBC Iron Saturation Ferritin Total Bilirubin AST ALT Alkaline Phosphatase Troponin I Total Protein Albumin Globulin Albumin/Globulin Ratio Vitamin B12 Vitamin D 25-Hydroxy Folate TSH PTH Intact Cortisol MRSA (PCR) POC Glucose 225 H Blood Type Antibody Screen Crossmatch 10/10/19 10/10/19 10/10/19 14:30 16:26 22:00 WBC Corrected WBC RBC Hgb Hct MCV MCH MCHC RDW Std Deviation RDW Coeff of Sophie Plt Count MPV Immature Gran % (Auto) Neut % (Auto) Lymph % (Auto) [place] % (Auto) Eos % (Auto) Baso % (Auto) Absolute Neuts (auto) Absolute Lymphs (auto) Total Counted Neutrophils % (Manual) Band Neutrophils % Lymphocytes % (Manual) Monocytes % (Manual) Eosinophils % (Manual) Basophils % (Manual) Metamyelocytes % Myelocytes % Promyelocytes % Blast Cells % Plasma Cell % (Manual) Other Cells % Nucleated RBC % Nucleated RBCs/100 WBC Differential Comment Diff Path Review Hypersegmented Neuts Atypical Lymphocytes Reactive Lymphocytes Smudge Cells Toxic Granulation Toxic Vacuolation Dohle Bodies Roxana Rods Platelet Estimate Plt Morphology Comment RBC Morphology Polychromasia Hypochromasia Poikilocytosis Basophilic Stippling Anisocytosis Microcytosis Macrocytosis Spherocytes Sickle Cells Target Cells Tear Drop Cells Ovalocytes Stomatocytes [place] Bodies [place] Cells Bite Cells Crenated Cell Acanthocytes (Spur) Rouleaux Schistocytes PT INR APTT Sodium Potassium Chloride Carbon Dioxide Anion Gap BUN Creatinine Estim Creat Clear Calc Est GFR (MDRD) Af Amer Est GFR (MDRD) Non-Af BUN/Creatinine Ratio Glucose Hemoglobin A1c Calcium 6.4 L* Magnesium 2.7 H Iron TIBC Iron Saturation Ferritin Total Bilirubin AST ALT Alkaline Phosphatase Troponin I Total Protein Albumin Globulin Albumin/Globulin Ratio Vitamin B12 Vitamin D 25-Hydroxy Folate TSH PTH Intact Cortisol MRSA (PCR) POC Glucose 182 H 136 H Blood Type Antibody Screen Crossmatch 10/11/19 10/11/19 06:00 06:00 WBC Pending Corrected WBC RBC Pending Hgb Pending Hct Pending MCV Pending MCH Pending MCHC Pending RDW Std Deviation Pending RDW Coeff of Sophie Pending Plt Count Pending MPV Immature Gran % (Auto) Neut % (Auto) Lymph % (Auto) [place] % (Auto) Eos % (Auto) Baso % (Auto) Absolute Neuts (auto) Absolute Lymphs (auto) Total Counted Neutrophils % (Manual) Band Neutrophils % Lymphocytes % (Manual) Monocytes % (Manual) Eosinophils % (Manual) Basophils % (Manual) Metamyelocytes % Myelocytes % Promyelocytes % Blast Cells % Plasma Cell % (Manual) Other Cells % Nucleated RBC % Nucleated RBCs/100 WBC Differential Comment Diff Path Review Hypersegmented Neuts Atypical Lymphocytes Reactive Lymphocytes Smudge Cells Toxic Granulation Toxic Vacuolation Dohle Bodies Roxana Rods Platelet Estimate Plt Morphology Comment RBC Morphology Polychromasia Hypochromasia Poikilocytosis Basophilic Stippling Anisocytosis Microcytosis Macrocytosis Spherocytes Sickle Cells Target Cells Tear Drop Cells Ovalocytes Stomatocytes [place] Bodies [place] Cells Bite Cells Crenated Cell Acanthocytes (Spur) Rouleaux Schistocytes PT INR APTT Sodium Pending Potassium Pending Chloride Pending Carbon Dioxide Pending Anion Gap Pending BUN Pending Creatinine Pending Estim Creat Clear Calc Est GFR (MDRD) Af Amer Pending Est GFR (MDRD) Non-Af Pending BUN/Creatinine Ratio Pending Glucose Pending Hemoglobin A1c Calcium Pending Magnesium Iron TIBC Iron Saturation Ferritin Total Bilirubin AST ALT Alkaline Phosphatase Troponin I Total Protein Albumin Globulin Albumin/Globulin Ratio Vitamin B12 Vitamin D 25-Hydroxy Folate TSH PTH Intact Cortisol MRSA (PCR) POC Glucose Blood Type Antibody Screen Crossmatch Clinical Impression(s) from Imaging Studies Brain CT 10/09/19 10:39 IMPRESSION: Chronic involutional changes of the brain. Stable examination. Electronically Signed: Baljinder Geovani, at 11:34 EDT , Service support , Chest X-Ray 10/09/19 10:40 IMPRESSION: Consolidation in the left apex. This may represent either pneumonic infiltration versus a mass lesion. CT scan is recommended. Electronically Signed: Baljinder Olivo, at 11:40 EDT , Service support , Hip/Pelvis X-Ray 10/09/19 10:40 IMPRESSION: Transverse fracture of the basilar cervical region of the right femoral neck with cephalic migration of the distal fracture fragment. Electronically Signed: Baljinedr Olivo, at 11:39 EDT , Service support , Brain MRI 10/09/19 13:45 IMPRESSION: Mild atrophy and periventricular white matter ischemic changes without evidence for acute infarct. No focal enhancing lesions to suggest metastatic disease. Electronically Signed: Tommy Francis MD at 19:43 EDT , Service support , Medical Necessity - Tobacco Use Smoking Status: Heavy Smoker (>10/day) Tobacco Use: Cigarettes Assessment/Plan RECOMMENDATIONS: 1. Additional calcium and potassium repletion this morning. 2. Continue to monitor H&H daily. Transfuse if hemoglobin drops below 7 g/dL. 3. Following repletion of electrolytes, the patient is medically stable for surgical intervention by Ortho. 4. Recommend that the patient return to the ICU postoperatively for monitoring. 5. Continue current pain control regimen. IMPRESSIONS: 1. Near syncope May have been secondary to presenting anemia versus seizure activity. Intravascular volume depletion may also be another contributing etiology. These issues are being addressed as outlined below. 2. New onset seizure activity Unclear precipitating etiology. However, the patient's presenting electrolyte derangements, including hypocalcemia may have been a precipitating etiology. All of the patient's electrolyte derangements have been addressed. The patient was also started on Keppra. No further seizure activity has been noted. MRI and EEG were unremarkable. 3. Profound hypomagnesemia/hypocalcemia Likely secondary to GI losses coupled with concurrent use of PPI in his home environment. The patient's presenting hypomagnesemia may have been a cause for his hypocalcemia. Magnesium and calcium levels have been repleted. I would recommend that the patient avoid using a proton pump inhibitor in the future. 4. Acute transverse fracture of the right femoral neck The patient is medically stable for surgery from my perspective after he receives his morning calcium and potassium supplementation. I would recommend that he return to the ICU postoperatively for monitoring. 5. Anemia There are no overt signs of gastrointestinal blood loss. The patient has received 2 units of packed red blood cells and has a stable H&H. Plan to check hemoglobin daily. Plan to transfuse if hemoglobin drops below 7 g/dL. 6. History of left Pancoast tumor/non-small cell lung cancer/tobacco dependency/GERD/diabetes mellitus Complicates care, management, recovery and prognosis. Smoking cessation counseling was provided. Nicotine replacement therapy can be offered to the patient while admitted to the hospital. Continue sliding scale insulin coverage. This note was generated with [employer] dictation software. It may contain incorrect words, spelling, and punctuation that were not noted in checking the note before signing. Inpatient E&M: [id number] [facility] H[facility] L3
[2019-10-11 06:40] LABS: Hematocrit 27.1 % (40-54); Hemoglobin 9.1 g/dL (13.0-16.5); Mean Corp Hgb Conc 33.6 g/dL (32-36); Mean Corpuscular Volume 104.2 fL (80-94); Mean Platelet Vol. 12.5 fl (6.2-12.0); POSITIVE COUNT YES; POSITIVE MORPHOLOGY YES; Platelet Count 81 K/mm3 (150-450); RBC Distribution Width CV 18.6 % (11.6-14.6); RBC Distribution Width SD 69.6 fl (35.1-43.9); White Blood Count 6.1 K/mm3 (4.4-11.0)
[2019-10-11 06:46] LABS: Bedside Glucose 120 mg/dL (70-110)
[2019-10-11 07:02] LABS: Anion Gap 5 (5-15); BUN 10 mg/dL (7-18); BUN/Creat Ratio 11.7 RATIO (10-20); Calcium,Total 6.4 mg/dL (8.5-10.1); Chloride 108 mmol/L (98-107); Creatinine, Serum 0.86 mg/dL (0.70-1.30); EST Glomerular Filtration Rate 98 mL/min (>60); Est Glom Filt Rate - Afr Amer 119 mL/min (>60); Estimated Creatinine Clearance 89.67 ml/min; Glucose 131 mg/dL (74-106); Potassium 3.4 mmol/L (3.5-5.1); Sodium Level 135 mmol/L (136-145)
[2019-10-11 07:04] LABS: Scan Indicated on CBC? Y/N YES- FLAGS NOTED
[2019-10-11] MEDS: Ferrous Sulfate 325 MG Tablet PO (08:06)
[2019-10-11] MEDS: Citalopram 40 MG TABLET PO (08:06)
[2019-10-11] MEDS: Folic Acid 1 MG Tablet PO (08:06)
[2019-10-11] MEDS: levETIRAcetam Oral Solution 500 MG/5 ML 1000 MG PO ×2 (08:06→21:37)
[2019-10-11] MEDS: Pregabalin 75 MG Capsule 300 MG PO ×2 (08:09→21:42)
[2019-10-11] MEDS: Potassium Chloride 10mEq/100mL 10 MEQ/100 ML IV.SOLN. 100 MEQ IV BOLUS ×4 (11:21→14:42)
[2019-10-11 11:31] LABS: Bedside Glucose 106 mg/dL (70-110)
--- NOTE | 2019-10-11 11:35 | NURSING ---
pt stated it was ok to give brother Carmine valladares updates [phone].
[2019-10-11 12:22] LABS: Calcium,Total 6.8 mg/dL (8.5-10.1); Magnesium 1.5 mg/dL (1.6-2.6)
[2019-10-11] MEDS: fentaNYL 100 MCG/2 ML Ampul 25 MCG IV (13:09)
[2019-10-11] MEDS: 0.9% Saline Lock 10 ML Syringe IV (13:10)
--- NOTE | 2019-10-11 15:05 | PCM.PROGNOTE ---
Subjective: Patient was seen and examined today, he voices no complaints of any fever, chills, or shortness of breath. Critical care stated that they felt the patient was stable to undergo repair of his hip fracture today. Patient's calcium was low today and he received 2 infusions of calcium gluconate. - Physical Exam Vitals/I&O's: Vital Signs Temp Pulse Resp BP Pulse Ox 98.2 F 79 16 117/74 98 10/11/19 12:00 10/11/19 14:00 10/11/19 14:00 10/11/19 14:00 10/11/19 14:00 Oxygen Flow Rate (L/min) 2 Oxygen Delivery Method Nasal Cannula Weight: 77.9 kg Body Mass Index (BMI) 26.4 Intake and Output for Last 24 Hours 10/09/19 10/10/19 10/11/19 23:59 23:59 23:59 Intake Total 2720.50 / 2720.50 1789 / 1789 509.67 / 509.67 Output Total 0 / 0 3625 / 4375 2400 / 2400 Balance 2720.50 / 2720.50 -1836 / -2586 -1890.33 / -1890.33 General: Alert, Oriented x3, Cooperative HEENT: Atraumatic, PERRLA, EOMI, Normocephalic Oral: Moist Mucosa Neck: Supple, No JVD, Negative Carotid Bruits Lungs: Clear to auscultation, Normal air movement, No rhonchi, No wheeze Cardiovascular: Regular rate, Regular Rhythm, Normal S1, Normal S2, No murmurs, PMI Normal, No rub noted Abdomen: Bowel Sounds Present, Soft, Non Tender Extremities: No edema, Capillary Refill Less than 3 Seconds Skin: No rashes, No breakdown Neurological: Cranial nerves II-XII grossly intact, Neuro grossly intact, Sensory exam intact to light touch and pain Psych/Mental Status: Normal Affect, Appropriate, Alert and oriented to time, place, person, mood and affect Laboratory Results 10/09/19 12:20: Crossmatch See Detail 10/10/19 16:26: POC Glucose 182 H 10/10/19 22:00: POC Glucose 136 H 10/11/19 06:00: WBC 6.1, RBC 2.60 L, Hgb 9.1 L, Hct 27.1 L, MCV 104.2 H, MCH 35.0 H, MCHC 33.6 D, RDW Std Deviation 69.6 H, RDW Coeff of Sophie 18.6 H, Plt Count 81 L, MPV 12.5 H, Differential Comment 10/11/19 06:00: Sodium 135 L, Potassium 3.4 L, Chloride 108 H, Carbon Dioxide 22.0, Anion Gap 5, BUN 10, Creatinine 0.86, Estim Creat Clear Calc 89.67, Est GFR (MDRD) Af Amer 119, Est GFR (MDRD) Non-Af 98, BUN/Creatinine Ratio 11.7, Glucose 131 H, Calcium 6.4 L* 10/11/19 06:42: POC Glucose 120 H 10/11/19 11:25: POC Glucose 106 10/11/19 12:00: Calcium 6.8 L, Magnesium 1.5 L Current Medications Acetaminophen (Tylenol) 650 mg PO Q6H PRN PRN PRN Reason: Pain Score 1-10/Temp > 100.7 F Last Admin: 10/10/19 08:35 Dose: 650 mg Documented by: Atorvastatin Calcium (Lipitor) 40 mg PO QHS [facility] Last Admin: 10/10/19 21:49 Dose: 40 mg Documented by: Citalopram Hydrobromide (Celexa) 40 mg PO DAILY [facility] Last Admin: 10/11/19 08:06 Dose: 40 mg Documented by: Sodium Chloride 68.4 ml/Ropivacaine 20 ml/ Epinephrine HCl 0.6 mg/ Morphine Sulfate 5 mg/ Ketorolac Tromethamine 30 mg 0 ml OPERA.SITE X1 ONE Stop: 10/11/19 16:01 Dextrose (D50w Syringe) 0 gm IV X1 PRN; Protocol PRN Reason: Hypoglycemia Diazepam (Valium) 5 mg PO Q8H PRN PRN Reason: MUSCLES SPASMS Last Admin: 10/09/19 17:41 Dose: 5 mg Documented by: Ergocalciferol (Vitamin D) 50,000 unit PO Q7D [facility] Last Admin: 10/09/19 22:26 Dose: 50,000 unit Documented by: Fentanyl Citrate (Sublimaze (100mcg Ampule)) 25 mcg IV Q4H PRN PRN PRN Reason: Pain Score 6-10/10 Last Admin: 10/11/19 13:09 Dose: 25 mcg Documented by: Ferrous Sulfate (Ferrous Sulfate) 325 mg PO DAILY@0800 [facility] Last Admin: 10/11/19 08:06 Dose: 325 mg Documented by: [facility]) [facility] Last Admin: 10/11/19 08:06 Dose: 1 mg Documented by: Glucagon () 1 mg IM .X1 PRN PRN Reason: Hypoglycemia Hydroxyzine Pamoate (Vistaril Pamoate Capsule) 25 mg PO BID PRN PRN PRN Reason: ANXIETY Sodium Chloride () 500 mls @ 15 mls/hr IV PRN PRN PRN Reason: Blood Transfusion Last Infusion: 10/11/19 14:46 Dose: Infused Documented by: Sodium Chloride () 250 mls @ 15 mls/hr IV .[id number] PRN PRN Reason: Saline Flush Last Infusion: 10/11/19 14:44 Dose: 0 mls/hr Documented by: Calcium Gluconate 2 gm/ (Dextrose) 120 mls @ 60 mls/hr IV X1 ONE Stop: 10/11/19 16:29 Last Admin: 10/11/19 14:41 Dose: 60 mls/hr Documented by: Cefazolin Sodium 2 gm/ Sodium (Chloride) 110 mls @ 150 mls/hr IV X1 ONE Stop: 10/11/19 16:43 Tranexamic Acid 1,000 mg/ (Sodium Chloride) 110 mls @ 440 mls/hr IV PREOP ONE Stop: 10/11/19 16:14 Tranexamic Acid 1,000 mg/ (Sodium Chloride) 110 mls @ 440 mls/hr IV .8 HRS POST-OP ONE Stop: 10/12/19 00:14 Insulin Human Lispro (Humalog Kwikpen (Bkc)) 0 unit SC TIDAC [facility]; Protocol Last Admin: 10/11/19 11:26 Dose: Not Given Documented by: Levetiracetam (Keppra Oral Solution) 1,000 mg PO BID [facility] Last Admin: 10/11/19 08:06 Dose: 1,000 mg Documented by: Levothyroxine Sodium (Synthroid) 75 mcg PO DAILY@0600 [facility] Last Admin: 10/11/19 06:06 Dose: 75 mcg Documented by: Ondansetron HCl (Zofran) 4 mg IV Q8H PRN PRN PRN Reason: NAUSEA/VOMITING Oxycodone HCl (Oxyir) 5 mg PO Q4H PRN PRN PRN Reason: Pain Score 4-5/10 Oxycodone HCl (Oxyir) 10 mg PO Q4H PRN PRN PRN Reason: Pain Score 6-10/10 Last Admin: 10/10/19 08:35 Dose: 10 mg Documented by: Pregabalin (Lyrica) 300 mg PO BID [facility] Last Admin: 10/11/19 08:09 Dose: 300 mg Documented by: Quetiapine Fumarate (Seroquel) 400 mg PO QHS [facility] Last Admin: 10/10/19 21:49 Dose: 400 mg Documented by: Sodium Chloride () 10 - 40 ml IV UD PRN PRN Reason: SALINE FLUSH Last Admin: 10/11/19 13:10 Dose: 10 ml Documented by: Trazodone HCl (Desyrel) 50 mg PO QHS PRN PRN Reason: SLEEP Medical Necessity - Tobacco Use Smoking Status: Heavy Smoker (>10/day) Tobacco Use: Cigarettes Assessment/Plan #1 new onset seizure probably secondary to hypocalcemia-patient will remain on Keppra #2 hypocalcemia-probably secondary to his non-small cell lung cancer, calcium replacement was given to the patient again today, I will recheck patient's calcium tomorrow #3 right femoral neck fracture-patient appears medically stable for surgery at this time according to critical care, again cardiology was contacted yesterday and I discussed the case with them, they did not feel the patient had underlying cardiac issues and did not feel he needed to see the patient. #4 anemia-probably secondary to chemotherapy-patient's hemoglobin this morning was 9.1 #5 non-small cell lung cancer #6 essential hypertension #7 type 2 diabetes-monitor blood sugars at this time #8 psychiatric disorder-type unknown, patient is on antidepressants and antianxiety medications. #9 hypomagnesemia-patient will receive magnesium replacement again today Inpatient E&M: [id number] [facility] Hosp L2
[2019-10-11] MEDS: Magnesium Sulfate 4gm/100mL 4 GM/100 ML IV.SOLN. IV (15:52)
[2019-10-11 16:31] LABS: Bedside Glucose 92 mg/dL (70-110)
--- NOTE | 2019-10-11 17:42 | CON.PCM_ITS ---
Reason for Consult Date of Consultation: 10/11/19 History of Present Illness: The patient is a 54 year old male with a history of lung cancers that reportedly fell October 07 in his house. He sustained a right hip fracture. He was brought to [facility] and diagnosed with a hip fracture. Patient states he has had some pre-existing hip pain. He did have a CAT scan done including abdomen and pelvis recently that did not show any pathologic bone in the right hip area. He was diagnosed with multiple medical problems in the hospital including low calcium, low magnesium, anemia, thrombocytopenia. Has been undergoing medical management for optimization. Portably he has been optimized and is ready for surgery today. [] Past Medical History Medical History: Medical History (Last Updated 10/09/19 @ 13:[address] Héctor Billings, DO) DM2 (diabetes mellitus, type 2) E11.9 Non-small cell lung cancer C34.90 HTN (hypertension) I10 Allergies No Known Allergies Allergy (Verified 10/09/19 10:36) Home Medications: Ambulatory Orders Medication Instructions Recorded Atorvastatin Calcium [Lipitor] 40 mg PO QHS 12/15/16 Citalopram [Celexa] 40 mg PO DAILY 12/15/16 RX: Ferrous Sulfate 325 mg PO DAILY@0800 12/27/17 RX: Hydroxyzine HCl 25 mg PO BID PRN PRN 12/27/17 RX: Folic Acid 1 mg PO DAILY 08/25/19 RX: Pregabalin 300 mg PO BID 08/25/19 Diazepam [Valium] 5 mg PO Q8H PRN PRN 10/09/19 Levothyroxine [Synthroid] 75 mcg PO DAILY 10/09/19 Lisinopril [Zestril] 20 mg PO DAILY 10/09/19 Ondansetron [Zofran] 8 mg PO Q8H PRN PRN 10/09/19 Oxycodone HCl/Acetaminophen 1 ea PO Q6H PRN PRN 10/09/19 [Oxycodone-Acetaminophen 5-325] RX: Metformin HCl 1,000 mg PO DAILY 10/09/19 RX: Omeprazole 40 mg PO DAILY 10/09/19 RX: Quetiapine Fumarate 400 mg PO QHS 10/09/19 RX: traZODone [Desyrel] 50 mg PO QHS 10/09/19 Surgical History: noncontributory Smoking Status: Heavy Smoker (>10/day) Tobacco Use: Cigarettes Alcohol: Occasional Drugs: None - *Family History Maternal History Items: - - no lung cancer Objective: Review of systems on chart noted and reviewed. He is inactive. He does smoke 1-1/2 packs/day Right hip has shortening and external rotation. Right hip has pain on palpation. Left hip has no pain or shortening. Right hip was initialed. He is able to plantarflex and dorsiflex toes and ankles. Distal pulses are intact. No calf pain bilaterally. WAYNE hose and SCDs are on. X-rays AP pelvis AP and lateral right hip shows a displaced right femoral neck fracture without obvious pathologic fracture. Previous CAT scan of the pelvis reviewed showing no obvious pathologic bone about the right hip region. Laboratory work and vital signs reviewed. Case has been discussed repeatedly with the ER attending on admission, hospitalist service, nursing staff, anesthesia staff today - Physical Exam Vitals/I&O's: Vital Signs Temp Pulse Resp BP Pulse Ox 98 F 89 13 121/72 H 99 10/11/19 16:00 10/11/19 16:00 10/11/19 16:00 10/11/19 16:00 10/11/19 16:00 Oxygen Flow Rate (L/min) 2 Oxygen Delivery Method Room Air Weight: 77.9 kg Body Mass Index (BMI) 26.4 Intake and Output for Last 24 Hours 10/09/19 10/10/19 10/11/19 23:59 23:59 23:59 Intake Total 2720.50 / 2720.50 1789 / 1789 729.67 / 729.67 Output Total 0 / 0 3625 / 4375 2400 / 2400 Balance 2720.50 / 2720.50 -1836 / -2586 -1670.33 / -1670.33 Laboratory Results 10/09/19 12:20: Crossmatch See Detail 10/10/19 22:00: POC Glucose 136 H 10/11/19 06:00: WBC 6.1, RBC 2.60 L, Hgb 9.1 L, Hct 27.1 L, MCV 104.2 H, MCH 35.0 H, MCHC 33.6 D, RDW Std Deviation 69.6 H, RDW Coeff of Sophie 18.6 H, Plt Count 81 L, MPV 12.5 H, Differential Comment 10/11/19 06:00: Sodium 135 L, Potassium 3.4 L, Chloride 108 H, Carbon Dioxide 22.0, Anion Gap 5, BUN 10, Creatinine 0.86, Estim Creat Clear Calc 89.67, Est GFR (MDRD) Af Amer 119, Est GFR (MDRD) Non-Af 98, BUN/Creatinine Ratio 11.7, Glucose 131 H, Calcium 6.4 L* 10/11/19 06:42: POC Glucose 120 H 10/11/19 11:25: POC Glucose 106 10/11/19 12:00: Calcium 6.8 L, Magnesium 1.5 L 10/11/19 16:24: POC Glucose 92 Current Medications Acetaminophen (Tylenol) 650 mg PO Q6H PRN PRN PRN Reason: Pain Score 1-10/Temp > 100.7 F Last Admin: 10/10/19 08:35 Dose: 650 mg Documented by: Atorvastatin Calcium (Lipitor) 40 mg PO QHS [facility] Last Admin: 10/10/19 21:49 Dose: 40 mg Documented by: Citalopram Hydrobromide (Celexa) 40 mg PO DAILY [facility] Last Admin: 10/11/19 08:06 Dose: 40 mg Documented by: Dextrose (D50w Syringe) 0 gm IV X1 PRN; Protocol PRN Reason: Hypoglycemia Diazepam (Valium) 5 mg PO Q8H PRN PRN Reason: MUSCLES SPASMS Last Admin: 10/09/19 17:41 Dose: 5 mg Documented by: Ergocalciferol (Vitamin D) 50,000 unit PO Q7D [facility] Last Admin: 10/09/19 22:26 Dose: 50,000 unit Documented by: Fentanyl Citrate (Sublimaze (100mcg Ampule)) 25 mcg IV Q4H PRN PRN PRN Reason: Pain Score 6-10/10 Last Admin: 10/11/19 13:09 Dose: 25 mcg Documented by: Ferrous Sulfate (Ferrous Sulfate) 325 mg PO DAILY@0800 [facility] Last Admin: 10/11/19 08:06 Dose: 325 mg Documented by: Folic Acid (Folic Acid) 1 mg PO DAILYCM [facility] Last Admin: 10/11/19 08:06 Dose: 1 mg Documented by: Glucagon () 1 mg IM .X1 PRN PRN Reason: Hypoglycemia Hydroxyzine Pamoate (Vistaril Pamoate Capsule) 25 mg PO BID PRN PRN PRN Reason: ANXIETY Sodium Chloride () 500 mls @ 15 mls/hr IV PRN PRN PRN Reason: Blood Transfusion Last Infusion: 10/11/19 14:46 Dose: Infused Documented by: Sodium Chloride () 250 mls @ 15 mls/hr IV .[id number] PRN PRN Reason: Saline Flush Last Infusion: 10/11/19 14:44 Dose: 0 mls/hr Documented by: Tranexamic Acid 1,000 mg/ (Sodium Chloride) 110 mls @ 440 mls/hr IV .8 HRS POST-OP ONE Stop: 10/12/19 00:14 Magnesium Sulfate () 4 gm in 100 mls @ 25 mls/hr IV X1 ONE Stop: 10/11/19 19:29 Last Admin: 10/11/19 15:52 Dose: 25 mls/hr Documented by: Insulin Human Lispro (Humalog Suraj (Bkc)) 0 unit SC TIDAC [facility]; Protocol Last Admin: 10/11/19 11:26 Dose: Not Given Documented by: Levetiracetam (Keppra Oral Solution) 1,000 mg PO BID [facility] Last Admin: 10/11/19 08:06 Dose: 1,000 mg Documented by: Levothyroxine Sodium (Synthroid) 75 mcg PO DAILY@0600 [facility] Last Admin: 10/11/19 06:06 Dose: 75 mcg Documented by: Ondansetron HCl (Zofran) 4 mg IV Q8H PRN PRN PRN Reason: NAUSEA/VOMITING Oxycodone HCl (Oxyir) 5 mg PO Q4H PRN PRN PRN Reason: Pain Score 4-5/10 Oxycodone HCl (Oxyir) 10 mg PO Q4H PRN PRN PRN Reason: Pain Score 6-10/10 Last Admin: 10/10/19 08:35 Dose: 10 mg Documented by: Pregabalin (Lyrica) 300 mg PO BID [facility] Last Admin: 10/11/19 08:09 Dose: 300 mg Documented by: Quetiapine Fumarate (Seroquel) 400 mg PO QHS [facility] Last Admin: 10/10/19 21:49 Dose: 400 mg Documented by: Sodium Chloride () 10 - 40 ml IV UD PRN PRN Reason: SALINE FLUSH Last Admin: 10/11/19 13:10 Dose: 10 ml Documented by: Trazodone HCl (Desyrel) 50 mg PO QHS PRN PRN Reason: SLEEP Assessment/Plan His diagnosis and treatment options regarding his displaced right femoral neck fracture discussed with him at length. He would like to proceed with surgical intervention. We are planning a cemented hemiarthroplasty based on his medical comorbidities, inactivity, bone quality, I feel this is his best option compared to press-fit or total hip replacement. All of his questions answered. Risk of surgery including but not limited to from operative or postoperative complications. Risk of anesthetic complications such as heart attacks, strokes, seizures, or . Risk of infections. Risk of damage to nerves arteries tendons. Risk of inadvertent fractures or dislocations. Risk of bone or wound healing complications. Possibility of nonunion malunion pain stiffness weakness. Possible need for further surgery such as hardware removal. Risk of DVT PE and other potential complications could lead to or disability explained. No guarantees were stated or implied. All of their questions were answered. Appropriate informed consent was obtained and signed for surgical intervention. He will continue under medical management per the hospitalist service. Importance of him stopping smoking discussed at length. We will plan aspirin for DVT prevention postoperatively. Sony perioperatively. This note was generated with [employer] dictation software. It may contain incorrect words, spelling, and punctuation that were not noted in checking the note before signing.
--- NOTE | 2019-10-11 17:56 | NURSING ---
to or per bed per or staff
[2019-10-11] MEDS: Cefazolin 2 GM in 0.9% Normal Saline 100 ML IV (18:01)
--- NOTE | 2019-10-11 19:25 | PRO.PCM_ITS ---
Procedure Report Date of Procedure: 10/11/19 Preoperative diagnosis: Right hip displaced femoral neck fracture Postoperative diagnosis: Same Operation: Right hip cemented hemiarthroplasty Surgeon: Dr. Steven Shrestha MD Core Carrier: Kar Beck PA-C Anesthesia: General Anesthesiologist; Dr. Luciana HINKLE 100 Applications: None Special medications: IV [Ancef], IV Tranexamic acid IV x 2 Indications for surgery : Patient is a 54 -year-old [male] that fell few day fracturing his right hip. Appropriate informed consent was obtained and signed. Appropriate medical workup was performed preoperatively and patient was deemed safe for surgery by the anesthesia department and hospitalist service. Noted to have many medical comorbidities assistant winemakerGEO was utilized throughout the entire procedure. They were vital in helping with patient positioning, holding of retractors, exposing the tissues adequately for safe completion of the procedure including cutting of the bone, helping dormitory keeper appropriate alignment and sizing of the components, implantation of the components, as well as wound closure, bandage application, and safe patient transfer. Without surgical instrument maker, physician family medicine physician assistant, surgical time would have been significantly increased, and surgical outcome would have been less optimal. Operative findings: Patient displaced comminuted right femoral neck fracture. We used a Sarbjit Accolade C stem size #5 cemented. Bipolar 49 mm femoral head with a +4 neck length. 13 mm distal centralizer. This reproduced there anatomy nicely. Clinically good leg lengths were noted. Good hip stability through range of motion with no undue pistoning. Standard wound closure in layers, followed by julieth, followed by Mepilex dressing Details of procedure: Patient was taken to the operating room and transferred to the operating table. Given appropriate anesthetic agent by that department. Patient was then rolled into a lateral decubitus position with the involved painful hip up in the air. Appropriate timeouts had been performed. Hip had been appropriately marked with my initials. Padded anterior and posterior position was utilized. Axillary roll placed. WAYNE hose and SCDs on the nonoperative limb utilized throughout the procedure. Operative lower extremity was prepped padded and draped in the usual orthopedic sterile fashion for the procedure. I injected the pain relieving solution in the standard sterile technique of the soft tissues of the hip carefully. Incision was made curving over the tip of the greater trochanter posteriorly. Full thickness skin flaps are raised down on the fascia amaris. Fascia amaris was opened in length with our incision. Charnley self-retaining hip retractor was carefully placed by the surgeon. Leg was appropriately rotated by the family medicine physician assistant. Retractor was used to lift the abductors anteriorly to visualize the piriformis tendon and external rotators. Piriformis tendon and external rotators released off the greater trochanter with the Bovie. Tagging suture was placed in each of these separately. We then split the tissue superior to the piriformis tendon through capsule and onto the pelvis. Acetabular labrum was preserved. Retractors were carefully placed around the femoral neck. Displaced unstable femoral neck fracture identified. cutting guide was utilized to map out the proposed cut approximately 1 fingerbreadth above the lesser trochanter. This femoral neck cut was carried out with a saw. Fractured femoral head removed and measured and inspected. Femoral head was measured. Appropriate trial was utilized. A proximal femoral elevator utilized. We used a sharp awl entering down inside the bone of the proximal femur. Utilized the [employer] cutting osteotome the proximal lateral greater trochanteric region. The fragment removed. Broaching was then done from the smallest broach, upto the appropriate size. Good stability was confirmed. We then trialed the construct with a standard neck length and appropriate sized femoral head. We were happy with the construct. Good stability to flexion, rotation. At this point trials removed. 2 full batches of bone cement were mixed. 2 sponges were placed in the acetabulum we prepared the canal with brushing. Cement restrictor was placed down to the appropriate depth. It was thoroughly irrigated clean and dry. When the cement was as the appropriate texture, we pressurized cement down in the femoral canal. The appropriate size stem then hammered into the proximal femur and seated down to a similar position as the trial had. Excess bone cement removed. Stem was held still while cement fully hardened. Pain relieving solution was injected while this was occurring. The cement was fully hardened, sponges were removed from the acetabulum. We now again trialed and appropriate neck length decided upon. It was then opened. Now impacted the appropriate sized femoral head, neck construct onto the clean dried trunion. Irresept irrigant utilized throughout procedure to help prevent infection was noted to be stable. Hip was inspected, and joint was reduced for a final time. Good hip stability and leg lengths noted. This was then irrigated with saline and cleaned. Next the remainder of the pain relieving solution was injected [facility] throughout the soft tissues of the hip joint. Closure was carried out with a combination of #1 Vicryl repairing the hip capsule as well as piriformis tendon and external rotators to bone, running #2 strata fix in the fascia amaris, followed by mid layer #1 Vicryl with #1 strata fix running. Next running 0 strata fix, followed by skin julieth, Xeroform, Mepilex dressing. We placed WAYNE hose and SCD on the operative leg. Patient awoken from the anesthetic and transferred back to room bed in recovery room in satisfactory condition. Patient will be admitted to the hospital. Hospitalist service will continue to manage the medical issues. Hopeful discharge to home or ECF in 2-3 days. This note was generated with [employer] dictation software. It may contain incorrect words, spelling, and punctuation that were not noted in checking the note before signing.
[2019-10-11] MEDS: QUEtiapine 100 MG Tablet 400 MG PO (21:37)
[2019-10-11] MEDS: Atorvastatin Calcium 40 MG Tablet PO (21:37)
[2019-10-11] MEDS: Senna/Docusate Sodium 1 Tablet 2 TABLET PO (21:43)
[2019-10-11 22:35] LABS: Bedside Glucose 186 mg/dL (70-110)
[2019-10-12] VITALS (21 sets, daily range): BP systolic 83–149; BP diastolic 62–91; PULSE 75–117; RESP 11–18; TEMP 36.1–36.8; O2SAT 92–99
--- NOTE | 2019-10-12 | HIP_PTH ---
PATIENT: PATIENCE DEVINE LOC: [facility] U#:[id number] AGE/SX: 54/M ROOM: [facility] RE10/09/[address]: Dr. Lauryn Cordero MD : 1965 BED: 1 DIS: 10/18/2019 SPEC #: [id number] RECD: 10/12/19 13:21 STATUS: [place] REQ #: [id number] CHARITY: 10/12/19 00:[address]: Steven Shrestha DEPT: SURGICAL PATHOLOGY RECD BY: Rohit Miller ENTERED: 10/13/19 10:55 SP TYPE: TOTAL HIP OTHR DR: Dr. Greg Castillo, DO Dr. Héctor Billings, DO Dr. Taurus Blackburn, DO MD Dr. Zurdo Araiza MD Tissues: Hip, NOS Procedures: Decalcification bone/plaque Surgery Specimen Level IV Comments: @ Ordering doctor for DEC edited from to [email or web address] Allen by DAVID at 10/13/19 110 @ Ordering doctor for SUIV edited from to @ by DAVID at 10/13/19 110 @ Submitting doctor edited from to [email or web address] Allen by DAVID at 10/13/19 1106 HEADER OPERATION: Right hip hemiarthroplasty PRE-OP DIAGNOSIS: Fractured right hip TISSUE SUBMITTED: Right femoral head bone and soft tissue MICROSCOPIC DIAGNOSIS Right femoral head bone and soft tissue, right hip hemiarthroplasty: Femoral head and detached pieces of bone with focal area of hemorrhage, clinically fractured right hip. NORMA:samara 10/18/19 MICROSCOPIC DESCRIPTION Slides are reviewed. GROSS DESCRIPTION Received is one container designated right femoral head bone and soft tissue. The specimen consists of a femoral head measuring 4.5 x 4.5 x 3.5 cm. The articular surface is smooth. The resection margin is irregular and hemorrhagic. Also present in the container are multiple detected pieces of bone with one large fragment of bone consistent with portion of femoral neck. The portion of femoral neck measures 4 x 3.5 x 2 cm. The detached pieces of bone measures in aggregate 3.5 x 3 x 1 cm. No soft tissue is identified. [employer] sections are submitted in three cassettes as follows: 1 & 2 - detached pieces of bone and portion of femoral neck, 3 - femoral head after decalcification. / NORMA:samara 10/13/19 TC:5 CPT: 45798, 00424
[2019-10-12] MEDS: Cefazolin 1 GM/50 ML BAG IV ×3 (01:06→11:54)
[2019-10-12 05:12] LABS: Absolute Lymphocyte Count 0.33 X10^3/uL (0.83-4.51); Absolute Neutrophil Count 4.2 X10^3/uL (2.0-7.7); Basophil# 0.01 X10^3/uL; Basophil% 0.2 % (0-1); Eosinophil# 0.02 X10^3/uL; Eosinophils% 0.4 % (0-5); Hematocrit 25.1 % (40-54); Hemoglobin 8.4 g/dL (13.0-16.5); Lymphocyte # 0.33 X10^3/ul (4.0); Lymphocyte % 6.6 % (19-41); Mean Corp Hgb Conc 33.5 g/dL (32-36); Mean Corpuscular Volume 104.6 fL (80-94); Mean Platelet Vol. 11.9 fl (6.2-12.0); Monocyte# 0.47 X10^3/uL; Monocyte% 9.3 % (0-10); NRBC Flagged by Analyzer 0 % (0-5); Neutrophil # 4.15 X10^3/uL (2.7-7.7); Neutrophil % 82.5 % (47-70); POSITIVE COUNT YES; POSITIVE DIFFERENTIAL YES; POSITIVE MORPHOLOGY YES; Platelet Count 96 K/mm3 (150-450); RBC Distribution Width SD 68.6 fl (35.1-43.9)
[2019-10-12 05:24] LABS: Differential Indicated SCAN CRITERIA MET
[2019-10-12 05:30] LABS: ALB/GLOB Ratio 0.4 RATIO (0.9-2.4); AST(SGOT) 32 U/L (15-37); Alanine Aminotransfer ALT/SGPT 13 U/L (16-61); Albumin, Serum 1.7 g/dL (3.2-5.0); Alkaline Phosphatase 88 U/L (45-117); Anion Gap 5 (5-15); BUN 7 mg/dL (7-18); BUN/Creat Ratio 10.8 RATIO (10-20); Calcium,Total 6.9 mg/dL (8.5-10.1); Chloride 106 mmol/L (98-107); Creatinine, Serum 0.65 mg/dL (0.70-1.30); EST Glomerular Filtration Rate 135 mL/min (>60); Est Glom Filt Rate - Afr Amer 163 mL/min (>60); Estimated Creatinine Clearance 118.64 ml/min; Globulin 4.2 g/dL (2.2-4.2); Glucose 93 mg/dL (74-106); Magnesium 2.1 mg/dL (1.6-2.6); Phosphorus 2.8 mg/dL (2.5-4.9); Potassium 3.6 mmol/L (3.5-5.1); Protein, Total 5.9 g/dL (6.4-8.2); Sodium Level 138 mmol/L (136-145)
[2019-10-12] MEDS: Levothyroxine 75 MCG Tablet PO (05:36)
[2019-10-12 05:53] LABS: Macrocytosis 2+; Platelet Estimate MOD DEC (ADEQ)
--- NOTE | 2019-10-12 06:32 | PN_ITS ---
Subjective: The patient was seen and examined at the bedside this morning. Events from the last 24 hours have been reviewed. The patient is currently afebrile, hemodynamically stable and maintaining appropriate oxygen saturations on 2 L/min via nasal cannula. The patient underwent successful right hip cemented hemiarthroplasty yesterday. Hemoglobin is stable this morning at 8.4 g/dL. When corrected for hypoalbuminemia, the patient has a calcium this morning of 8.7 mg/dL. Magnesium is within normal limits this morning at 2.1. The patient has no specific complaints this morning. His pain is currently under control. Objective: The patient's most recent lab work, culture data and imaging studies have all been personally reviewed. General: Alert, Cooperative, No apparent distress HEENT: Atraumatic, Normocephalic Oral: Dry Mucosa Neck: Supple, No Nodes, Trachea Midline Lungs: No rhonchi, No wheeze, No rales, Diminished Cardiovascular: Regular rate, Regular Rhythm, Normal S1, Normal S2, No murmurs Abdomen: Bowel Sounds Present, Soft, Non Tender Extremities: No clubbing, No cyanosis, No edema Skin: No breakdown Musculoskeletal: No Muscle Wasting Lymphatic: No Cervical, Supraclavicular, or Inguinal Adenopathy Neurological: Neuro grossly intact Psych/Mental Status: Normal Affect, Appropriate Vital Signs Temp Pulse Resp BP Pulse Ox 97.0 F L 89 11 L 94/65 97 10/12/19 06:00 10/12/19 06:00 10/12/19 06:00 10/12/19 06:00 10/12/19 06:00 Oxygen Flow Rate (L/min) 2 Oxygen Delivery Method Nasal Cannula Weight: 170 lb 3.15 oz Body Mass Index (BMI) 26.4 Intake and Output for Last 24 Hours 10/10/19 10/11/19 10/12/19 23:59 23:59 23:59 Intake Total 1789 / 1789 1311.75 / 2111.75 900 / 900 Output Total 3625 / 4375 3700 / 3850 600 / 600 Balance -1836 / -2586 -2388.25 / -1738.25 300 / 300 Labs (Last 48 Hours) 10/09/19 10/09/19 10/09/19 12:20 12:20 22:49 WBC RBC Hgb Hct MCV MCH MCHC RDW Std Deviation RDW Coeff of Sophie Plt Count MPV Immature Gran % (Auto) Neut % (Auto) Lymph % (Auto) [place] % (Auto) Eos % (Auto) Baso % (Auto) Absolute Neuts (auto) Absolute Lymphs (auto) Nucleated RBC % Differential Comment Platelet Estimate Plt Morphology Comment Anisocytosis Microcytosis Macrocytosis Sodium Potassium Chloride Carbon Dioxide Anion Gap BUN Creatinine Estim Creat Clear Calc Est GFR (MDRD) Af Amer Est GFR (MDRD) Non-Af BUN/Creatinine Ratio Glucose Hemoglobin A1c Calcium Phosphorus Magnesium Total Bilirubin AST ALT Alkaline Phosphatase Total Protein Albumin Globulin Albumin/Globulin Ratio PTH Intact 36.4 Cortisol MRSA (PCR) Negative POC Glucose Crossmatch See Detail 10/10/19 10/10/19 10/10/19 05:45 05:45 05:45 WBC RBC Hgb Hct MCV MCH MCHC RDW Std Deviation RDW Coeff of Sophie Plt Count MPV Immature Gran % (Auto) Neut % (Auto) Lymph % (Auto) [place] % (Auto) Eos % (Auto) Baso % (Auto) Absolute Neuts (auto) Absolute Lymphs (auto) Nucleated RBC % Differential Comment Platelet Estimate Plt Morphology Comment Anisocytosis Microcytosis Macrocytosis Sodium Potassium Chloride Carbon Dioxide Anion Gap BUN Creatinine Estim Creat Clear Calc Est GFR (MDRD) Af Amer Est GFR (MDRD) Non-Af BUN/Creatinine Ratio Glucose Hemoglobin A1c Calcium 6.1 L* Phosphorus Magnesium 1.5 L Total Bilirubin AST ALT Alkaline Phosphatase Total Protein Albumin Globulin Albumin/Globulin Ratio PTH Intact Cortisol 31.20 H MRSA (PCR) POC Glucose Crossmatch 10/10/19 10/10/19 10/10/19 06:34 06:52 06:52 WBC 5.7 RBC 2.86 L Hgb 10.1 L Hct 28.5 L MCV 99.7 H D MCH 35.3 H MCHC 35.4 RDW Std Deviation 65.5 H RDW Coeff of Sophie 18.6 H Plt Count 72 L MPV 12.3 H Immature Gran % (Auto) 0.900 Neut % (Auto) 90.8 H Lymph % (Auto) 3.2 L [place] % (Auto) 4.7 Eos % (Auto) 0.4 Baso % (Auto) 0.0 Absolute Neuts (auto) 5.2 Absolute Lymphs (auto) 0.18 L Nucleated RBC % 0 Differential Comment SCANNED Platelet Estimate MOD DEC Plt Morphology Comment LARGE Anisocytosis 2+ Microcytosis 1+ Macrocytosis 1+ Sodium Potassium Chloride Carbon Dioxide Anion Gap BUN Creatinine Estim Creat Clear Calc Est GFR (MDRD) Af Amer Est GFR (MDRD) Non-Af BUN/Creatinine Ratio Glucose Hemoglobin A1c 5.4 Calcium Phosphorus Magnesium Total Bilirubin AST ALT Alkaline Phosphatase Total Protein Albumin Globulin Albumin/Globulin Ratio PTH Intact Cortisol MRSA (PCR) POC Glucose 98 Crossmatch 10/10/19 10/10/19 10/10/19 11:06 14:05 14:30 WBC RBC Hgb Hct MCV MCH MCHC RDW Std Deviation RDW Coeff of Sophie Plt Count MPV Immature Gran % (Auto) Neut % (Auto) Lymph % (Auto) [place] % (Auto) Eos % (Auto) Baso % (Auto) Absolute Neuts (auto) Absolute Lymphs (auto) Nucleated RBC % Differential Comment Platelet Estimate Plt Morphology Comment Anisocytosis Microcytosis Macrocytosis Sodium Potassium Chloride Carbon Dioxide Anion Gap BUN Creatinine Estim Creat Clear Calc Est GFR (MDRD) Af Amer Est GFR (MDRD) Non-Af BUN/Creatinine Ratio Glucose Hemoglobin A1c Calcium Cancelled 6.4 L* Phosphorus Magnesium Cancelled 2.7 H Total Bilirubin AST ALT Alkaline Phosphatase Total Protein Albumin Globulin Albumin/Globulin Ratio PTH Intact Cortisol MRSA (PCR) POC Glucose 225 H Crossmatch 10/10/19 10/10/19 10/11/19 16:26 22:00 06:00 WBC 6.1 RBC 2.60 L Hgb 9.1 L Hct 27.1 L MCV 104.2 H MCH 35.0 H MCHC 33.6 D RDW Std Deviation 69.6 H RDW Coeff of Sophie 18.6 H Plt Count 81 L MPV 12.5 H Immature Gran % (Auto) Neut % (Auto) Lymph % (Auto) [place] % (Auto) Eos % (Auto) Baso % (Auto) Absolute Neuts (auto) Absolute Lymphs (auto) Nucleated RBC % Differential Comment Platelet Estimate Plt Morphology Comment Anisocytosis Microcytosis Macrocytosis Sodium Potassium Chloride Carbon Dioxide Anion Gap BUN Creatinine Estim Creat Clear Calc Est GFR (MDRD) Af Amer Est GFR (MDRD) Non-Af BUN/Creatinine Ratio Glucose Hemoglobin A1c Calcium Phosphorus Magnesium Total Bilirubin AST ALT Alkaline Phosphatase Total Protein Albumin Globulin Albumin/Globulin Ratio PTH Intact Cortisol MRSA (PCR) POC Glucose 182 H 136 H Crossmatch 10/11/19 10/11/19 10/11/19 06:00 06:42 11:25 WBC RBC Hgb Hct MCV MCH MCHC RDW Std Deviation RDW Coeff of Sophie Plt Count MPV Immature Gran % (Auto) Neut % (Auto) Lymph % (Auto) [place] % (Auto) Eos % (Auto) Baso % (Auto) Absolute Neuts (auto) Absolute Lymphs (auto) Nucleated RBC % Differential Comment Platelet Estimate Plt Morphology Comment Anisocytosis Microcytosis Macrocytosis Sodium 135 L Potassium 3.4 L Chloride 108 H Carbon Dioxide 22.0 Anion Gap 5 BUN 10 Creatinine 0.86 Estim Creat Clear Calc 89.67 Est GFR (MDRD) Af Amer 119 Est GFR (MDRD) Non-Af 98 BUN/Creatinine Ratio 11.7 Glucose 131 H Hemoglobin A1c Calcium 6.4 L* Phosphorus Magnesium Total Bilirubin AST ALT Alkaline Phosphatase Total Protein Albumin Globulin Albumin/Globulin Ratio PTH Intact Cortisol MRSA (PCR) POC Glucose 120 H 106 Crossmatch 10/11/19 10/11/19 10/11/19 12:00 16:24 22:29 WBC RBC Hgb Hct MCV MCH MCHC RDW Std Deviation RDW Coeff of Sophie Plt Count MPV Immature Gran % (Auto) Neut % (Auto) Lymph % (Auto) [place] % (Auto) Eos % (Auto) Baso % (Auto) Absolute Neuts (auto) Absolute Lymphs (auto) Nucleated RBC % Differential Comment Platelet Estimate Plt Morphology Comment Anisocytosis Microcytosis Macrocytosis Sodium Potassium Chloride Carbon Dioxide Anion Gap BUN Creatinine Estim Creat Clear Calc Est GFR (MDRD) Af Amer Est GFR (MDRD) Non-Af BUN/Creatinine Ratio Glucose Hemoglobin A1c Calcium 6.8 L Phosphorus Magnesium 1.5 L Total Bilirubin AST ALT Alkaline Phosphatase Total Protein Albumin Globulin Albumin/Globulin Ratio PTH Intact Cortisol MRSA (PCR) POC Glucose 92 186 H Crossmatch 10/12/19 10/12/19 04:50 04:50 WBC 5.0 RBC 2.40 L Hgb 8.4 L Hct 25.1 L MCV 104.6 H MCH 35.0 H MCHC 33.5 RDW Std Deviation 68.6 H RDW Coeff of Sophie 18.0 H Plt Count 96 L MPV 11.9 Immature Gran % (Auto) 1.000 H Neut % (Auto) 82.5 H Lymph % (Auto) 6.6 L [place] % (Auto) 9.3 Eos % (Auto) 0.4 Baso % (Auto) 0.2 Absolute Neuts (auto) 4.2 Absolute Lymphs (auto) 0.33 L Nucleated RBC % 0 Differential Comment Platelet Estimate MOD DEC Plt Morphology Comment Anisocytosis Microcytosis Macrocytosis 2+ Sodium 138 Potassium 3.6 Chloride 106 Carbon Dioxide 27.0 Anion Gap 5 BUN 7 Creatinine 0.65 L Estim Creat Clear Calc 118.64 Est GFR (MDRD) Af Amer 163 Est GFR (MDRD) Non-Af 135 BUN/Creatinine Ratio 10.8 Glucose 93 Hemoglobin A1c Calcium 6.9 L Phosphorus 2.8 Magnesium 2.1 Total Bilirubin 0.20 AST 32 ALT 13 L Alkaline Phosphatase 88 Total Protein 5.9 L Albumin 1.7 L Globulin 4.2 Albumin/Globulin Ratio 0.4 L PTH Intact Cortisol MRSA (PCR) POC Glucose Crossmatch Clinical Impression(s) from Imaging Studies Brain CT 10/09/19 10:39 IMPRESSION: Chronic involutional changes of the brain. Stable examination. Electronically Signed: Baljinder Olivo, at 11:34 EDT , Service support , Chest X-Ray 10/09/19 10:40 IMPRESSION: Consolidation in the left apex. This may represent either pneumonic infiltration versus a mass lesion. CT scan is recommended. Electronically Signed: Baljinder Olivo, at 11:40 EDT , Service support , Hip/Pelvis X-Ray 10/09/19 10:40 IMPRESSION: Transverse fracture of the basilar cervical region of the right femoral neck with cephalic migration of the distal fracture fragment. Electronically Signed: Baljinder Olivo at 11:39 EDT , Service support , Brain MRI 10/09/19 13:45 IMPRESSION: Mild atrophy and periventricular white matter ischemic changes without evidence for acute infarct. No focal enhancing lesions to suggest metastatic disease. Electronically Signed: Tommy Francis MD at 19:43 EDT , Service support , Medical Necessity - Tobacco Use Smoking Status: Heavy Smoker (>10/day) Tobacco Use: Cigarettes Assessment/Plan RECOMMENDATIONS: 1. Monitor electrolytes daily and replete if needed. 2. Continue to monitor H&H daily. Transfuse if hemoglobin drops below 7 g/dL. 3. Routine postoperative care per orthopedic surgery. Continue current pain control regimen. 4. Physical therapy to evaluate the patient. 5. Encourage incentive spirometer use and mobilize patient as tolerated. 6. The patient is medically stable for transfer out of the intensive care unit. Given the lack of further ICU or pulmonary needs, will sign off. IMPRESSIONS: 1. Near syncope May have been secondary to presenting anemia versus seizure activity. Intravascular volume depletion may also be another contributing etiology. These issues are being addressed as outlined below. 2. New onset seizure activity Unclear precipitating etiology. However, the patient's presenting electrolyte derangements, including hypocalcemia may have been a precipitating etiology. All of the patient's electrolyte derangements have been addressed. The patient was also started on Keppra. No further seizure activity has been noted. MRI and EEG were unremarkable. 3. Profound hypomagnesemia/hypocalcemia Likely secondary to GI losses coupled with concurrent use of PPI in his home environment. The patient's presenting hypomagnesemia may have been a cause for his hypocalcemia. Magnesium and calcium levels have been repleted. I would recommend that the patient avoid using a proton pump inhibitor in the future. 4. Acute transverse fracture of the right femoral neck The patient is now postoperative day #1 status post right hip hemiarthroplasty. Continue routine postoperative care per orthopedic surgery. 5. Anemia There are no overt signs of gastrointestinal blood loss. The patient has received 2 units of packed red blood cells and has a stable H&H. Plan to check hemoglobin daily. Plan to transfuse if hemoglobin drops below 7 g/dL. 6. History of left Pancoast tumor/non-small cell lung cancer/tobacco dependency/GERD/diabetes mellitus Complicates care, management, recovery and prognosis. Smoking cessation counseling was provided. Nicotine replacement therapy can be offered to the patient while admitted to the hospital. Continue sliding scale insulin coverage. This note was generated with [employer] dictation software. It may contain incorrect words, spelling, and punctuation that were not noted in checking the note before signing. Inpatient E&M: 52950 Subs Hosp L3
[2019-10-12 06:55] LABS: Bedside Glucose 85 mg/dL (70-110)
--- NOTE | 2019-10-12 08:28 | RAD_ITS ---
STUDY: X-RAY - PELVIS AND RIGHT HIP REASON FOR EXAM: Male, 54 years old. POST HIP REPAIR TECHNIQUE: 3 views of the pelvis and hip. COMPARISON: Comparison is made with prior study dated October 09, 2019. FINDINGS: The patient is status post right total hip replacement. There is good alignment. Postoperative soft tissue changes. RAD/Hip Min 2 Views (Portable) IMPRESSION: Status post right total hip replacement. There is good alignment. Postoperative soft tissue changes. Electronically Signed: Baljinder Olivo, at 9:44 EDT , Service support ,
[2019-10-12] MEDS: oxyCODONE 5 MG Tablet PO (08:53)
[2019-10-12] MEDS: Aspirin 81 MG TAB.CHEW PO (08:53)
[2019-10-12] MEDS: levETIRAcetam Oral Solution 500 MG/5 ML 1000 MG PO ×2 (08:54→21:42)
[2019-10-12] MEDS: Citalopram 40 MG TABLET PO (08:54)
[2019-10-12] MEDS: Folic Acid 1 MG Tablet PO (08:55)
[2019-10-12] MEDS: Ferrous Sulfate 325 MG Tablet PO (08:56)
[2019-10-12] MEDS: Pregabalin 75 MG Capsule 300 MG PO ×2 (09:00→21:43)
[2019-10-12 11:41] LABS: Bedside Glucose 182 mg/dL (70-110)
[2019-10-12] MEDS: Acetaminophen 325 MG Tablet 650 MG PO (11:50)
[2019-10-12] MEDS: Insulin Lispro 100 UNIT/ML INSULN.PEN SC (11:54)
--- NOTE | 2019-10-12 13:03 | PCM.PROGNOTE ---
Subjective: The patient was sitting in his bed upon examination. The patient underwent a right hip onur-arthroplasty by Dr. Steven Shrestha on October 11, 2019. He denies chest pain, chills, shortness of breath, lightheadedness, nausea or vomiting. He denies calf pain. His pain is a 5 on a scale of 10. He states the medications he is taking for pain is controlling the pain to his satisfaction. No adverse events overnight. He is anticipating being transferred to the progressive care unit today. Patient is on oxygen 2L. He has a history of Type 2 diabetes, hypertension and non-small cell lung carcinoma. Objective: Vital signs are stable and the patient is afebrile. Patient on 2L of oxygen via nasal cannula. Patient is able to plantarflex and dorsiflex actively. Sensation is intact to light touch to saphenous, sural, superficial and deep peroneal and tibial nerve distributions. Dressing is clean, dry and intact. Negative Homans bilaterally. Negative signs and symptoms of DVT. - Physical Exam Vitals/I&O's: Vital Signs Temp Pulse Resp BP Pulse Ox 98 F 105 H 14 111/75 94 10/12/19 12:00 10/12/19 12:00 10/12/19 12:00 10/12/19 12:00 10/12/19 12:00 Oxygen Flow Rate (L/min) 2 Oxygen Delivery Method Nasal Cannula Weight: 77.2 kg Body Mass Index (BMI) 26.4 Intake and Output for Last 24 Hours 10/10/19 10/11/19 10/12/19 23:59 23:59 23:59 Intake Total 1789 / 1789 1311.75 / 2111.75 1300 / 1300 Output Total 3625 / 4375 3700 / 3850 1000 / 1000 Balance -1836 / -2586 -2388.25 / -1738.25 300 / 300 General: Alert, Oriented x3, Cooperative, No apparent distress Extremities: Capillary Refill Less than 3 Seconds, No Calf Tenderness, Peripheral Pulses Normal Psych/Mental Status: Normal Affect Laboratory Results 10/11/19 16:24: POC Glucose 92 10/11/19 22:29: POC Glucose 186 H 10/12/19 04:50: WBC 5.0, RBC 2.40 L, Hgb 8.4 L, Hct 25.1 L, MCV 104.6 H, MCH 35.0 H, MCHC 33.5, RDW Std Deviation 68.6 H, RDW Coeff of Sophie 18.0 H, Plt Count 96 L, MPV 11.9, Immature Gran % (Auto) 1.000 H, Neut % (Auto) 82.5 H, Lymph % (Auto) 6.6 L, [place] % (Auto) 9.3, Eos % (Auto) 0.4, Baso % (Auto) 0.2, Absolute Neuts (auto) 4.2, Absolute Lymphs (auto) 0.33 L, Nucleated RBC % 0, Differential Comment , Platelet Estimate MOD DEC, Macrocytosis 2+ 10/12/19 04:50: Sodium 138, Potassium 3.6, Chloride 106, Carbon Dioxide 27.0, Anion Gap 5, BUN 7, Creatinine 0.65 L, Estim Creat Clear Calc 118.64, Est GFR (MDRD) Af Amer 163, Est GFR (MDRD) Non-Af 135, BUN/Creatinine Ratio 10.8, Glucose 93, Calcium 6.9 L, Phosphorus 2.8, Magnesium 2.1, Total Bilirubin 0.20, AST 32, ALT 13 L, Alkaline Phosphatase 88, Total Protein 5.9 L, Albumin 1.7 L, Globulin 4.2, Albumin/Globulin Ratio 0.4 L 10/12/19 06:50: POC Glucose 85 10/12/19 11:34: POC Glucose 182 H Current Medications Acetaminophen (Tylenol) 650 mg PO Q6H PRN PRN PRN Reason: Pain Score 1-10/Temp > 100.7 F Last Admin: 10/12/19 11:50 Dose: 650 mg Documented by: [facility], [facility] Last Admin: 10/12/19 08:53 Dose: 81 mg Documented by: Atorvastatin Calcium (Lipitor) 40 mg PO QHS [facility] Last Admin: 10/11/19 21:37 Dose: 40 mg Documented by: Citalopram Hydrobromide (Celexa) 40 mg PO DAILY [facility] Last Admin: 10/12/19 08:54 Dose: 40 mg Documented by: Dextrose (D50w Syringe) 0 gm IV X1 PRN; Protocol PRN Reason: Hypoglycemia Diazepam (Valium) 5 mg PO Q8H PRN PRN Reason: MUSCLES SPASMS Last Admin: 10/09/19 17:41 Dose: 5 mg Documented by: Ergocalciferol (Vitamin D) 50,000 unit PO Q7D [facility] Last Admin: 10/09/19 22:26 Dose: 50,000 unit Documented by: Ferrous Sulfate (Ferrous Sulfate) 325 mg PO DAILY@0800 [facility] Last Admin: 10/12/19 08:56 Dose: 325 mg Documented by: Folic Acid (Folic Acid) 1 mg PO DAILYCM [facility] Last Admin: 10/12/19 08:55 Dose: 1 mg Documented by: Glucagon () 1 mg IM .X1 PRN PRN Reason: Hypoglycemia Hydroxyzine Pamoate (Vistaril Pamoate Capsule) 25 mg PO BID PRN PRN PRN Reason: ANXIETY Sodium Chloride () 500 mls @ 15 mls/hr IV PRN PRN PRN Reason: Blood Transfusion Last Infusion: 10/11/19 14:46 Dose: Infused Documented by: Sodium Chloride () 250 mls @ 15 mls/hr IV .[id number] PRN PRN Reason: Saline Flush Last Infusion: 10/11/19 22:42 Dose: Infused Documented by: Insulin Human Lispro (Humalog Kwikpen (Bkc)) 0 unit SC TIDAC [facility]; Protocol Last Admin: 10/12/19 11:54 Dose: 1 u Documented by: Levetiracetam (Keppra Oral Solution) 1,000 mg PO BID [facility] Last Admin: 10/12/19 08:54 Dose: 1,000 mg Documented by: Levothyroxine Sodium (Synthroid) 75 mcg PO DAILY@0600 [facility] Last Admin: 10/12/19 05:36 Dose: 75 mcg Documented by: Morphine Sulfate () 2 - 4 mg IV Q2H PRN PRN PRN Reason: Pain Score 4-7/10 Morphine Sulfate () 2 - 4 mg IV Q2H PRN PRN PRN Reason: Pain Score 8-10/10 Ondansetron HCl (Zofran) 4 mg IV Q8H PRN PRN PRN Reason: NAUSEA/VOMITING Oxycodone HCl (Oxyir) 5 mg PO Q4H PRN PRN PRN Reason: Pain Score 4-5/10 Last Admin: 10/12/19 08:53 Dose: 5 mg Documented by: Oxycodone HCl (Oxyir) 10 mg PO Q4H PRN PRN PRN Reason: Pain Score 6-10/10 Last Admin: 10/10/19 08:35 Dose: 10 mg Documented by: Pregabalin (Lyrica) 300 mg PO BID [facility] Last Admin: 10/12/19 09:00 Dose: 300 mg Documented by: Quetiapine Fumarate (Seroquel) 400 mg PO QHS [facility] Last Admin: 10/11/19 21:37 Dose: 400 mg Documented by: Senna/Docusate Sodium (Senokot-S, Linda-Colace) 2 tablet PO BID [facility] Last Admin: 10/12/19 08:54 Dose: Not Given Documented by: Sodium Chloride () 10 - 40 ml IV UD PRN PRN Reason: SALINE FLUSH Last Admin: 10/11/19 13:10 Dose: 10 ml Documented by: Trazodone HCl (Desyrel) 50 mg PO QHS PRN PRN Reason: SLEEP Medical Necessity - Tobacco Use Smoking Status: Heavy Smoker (>10/day) Tobacco Use: Cigarettes Assessment/Plan 1. S/P right hip onur-arthroplasty POD #1 2. Continue ice for postoperative swelling and pain. 3. DVT prophylaxis: WAYNE hose and aspirin 81 mg twice daily for 4 weeks. 4. Physical therapy: Weightbearing as tolerated. 5. H & H: 8.4/25.1. Patient is asymptomatic. He has non-small cell lung cancer. 7. Encouraged incentive spirometry. 8. Disposition: Orthopedically stable. Please call with any further orthopedic questions. Continue postoperative medical management per medicine. Patient should follow-up in the office in 2 weeks. Please contact [facility] to schedule an appointment at [phone].
--- NOTE | 2019-10-12 13:08 | NURSING ---
report called to [facility] for transfer per bed to room 125
[2019-10-12] MEDS: Enoxaparin 40 MG/0.4 ML Syringe SC (13:51)
[2019-10-12 15:56] LABS: Bedside Glucose 138 mg/dL (70-110)
--- NOTE | 2019-10-12 17:08 | PCM.PROGNOTE ---
Subjective: Patient was seen and examined today, hemoglobin today was 8.4, calcium was 6.9, magnesium was 2.1. Patient has no complaints of any shortness of breath or chest discomfort, patient states he would like to try to go home at the time of discharge from the hospital rather than go to a rehab facility or nursing facility. - Physical Exam Vitals/I&O's: Vital Signs Temp Pulse Resp BP Pulse Ox 97.7 F L 104 H 18 110/72 96 10/12/19 13:56 10/12/19 16:31 10/12/19 13:56 10/12/19 13:56 10/12/19 13:56 Oxygen Flow Rate (L/min) 2 Oxygen Delivery Method Room Air Weight: 77.2 kg Body Mass Index (BMI) 26.4 Intake and Output for Last 24 Hours 10/10/19 10/11/19 10/12/19 23:59 23:59 23:59 Intake Total 1789 / 1789 1311.75 / 2111.75 1350 / 1350 Output Total 3625 / 4375 3700 / 3850 1000 / 1000 Balance -1836 / -2586 -2388.25 / -1738.25 350 / 350 General: Alert, Oriented x3, Cooperative, No apparent distress, Well developed HEENT: Atraumatic, PERRLA, EOMI, Normocephalic Oral: Moist Mucosa Neck: Supple, No JVD, Trachea Midline, Thyroid Normal Size and Texture Lungs: Clear to auscultation, Normal air movement, No rhonchi, No wheeze, No rales Cardiovascular: Regular rate, Regular Rhythm, Normal S1, Normal S2, No murmurs, PMI Normal, No rub noted, No Gallop Abdomen: Bowel Sounds Present, Soft, Non Tender, Non-Distended Extremities: No clubbing, No cyanosis, No edema, Capillary Refill Less than 3 Seconds Skin: No rashes, No breakdown Neurological: Cranial nerves II-XII grossly intact, Neuro grossly intact, Sensory exam intact to light touch and pain, Coordination normal Psych/Mental Status: Normal Affect, Appropriate, Alert and oriented to time, place, person, mood and affect Laboratory Results 10/09/19 12:20: Crossmatch See Detail 10/11/19 22:29: POC Glucose 186 H 10/12/19 04:50: WBC 5.0, RBC 2.40 L, Hgb 8.4 L, Hct 25.1 L, MCV 104.6 H, MCH 35.0 H, MCHC 33.5, RDW Std Deviation 68.6 H, RDW Coeff of Sophie 18.0 H, Plt Count 96 L, MPV 11.9, Immature Gran % (Auto) 1.000 H, Neut % (Auto) 82.5 H, Lymph % (Auto) 6.6 L, [place] % (Auto) 9.3, Eos % (Auto) 0.4, Baso % (Auto) 0.2, Absolute Neuts (auto) 4.2, Absolute Lymphs (auto) 0.33 L, Nucleated RBC % 0, Differential Comment , Platelet Estimate MOD DEC, Macrocytosis 2+ 10/12/19 04:50: Sodium 138, Potassium 3.6, Chloride 106, Carbon Dioxide 27.0, Anion Gap 5, BUN 7, Creatinine 0.65 L, Estim Creat Clear Calc 118.64, Est GFR (MDRD) Af Amer 163, Est GFR (MDRD) Non-Af 135, BUN/Creatinine Ratio 10.8, Glucose 93, Calcium 6.9 L, Phosphorus 2.8, Magnesium 2.1, Total Bilirubin 0.20, AST 32, ALT 13 L, Alkaline Phosphatase 88, Total Protein 5.9 L, Albumin 1.7 L, Globulin 4.2, Albumin/Globulin Ratio 0.4 L 10/12/19 06:50: POC Glucose 85 10/12/19 11:34: POC Glucose 182 H 10/12/19 15:47: POC Glucose 138 H Current Medications Acetaminophen (Tylenol) 650 mg PO Q6H PRN PRN PRN Reason: Pain Score 1-10/Temp > 100.7 F Last Admin: 10/12/19 11:50 Dose: 650 mg Documented by: Atorvastatin Calcium (Lipitor) 40 mg PO QHS [facility] Last Admin: 10/11/19 21:37 Dose: 40 mg Documented by: Citalopram Hydrobromide (Celexa) 40 mg PO DAILY [facility] Last Admin: 10/12/19 08:54 Dose: 40 mg Documented by: Dextrose (D50w Syringe) 0 gm IV X1 PRN; Protocol PRN Reason: Hypoglycemia Enoxaparin Sodium (Lovenox) 40 mg SC DAILY@0600 [facility] Ferrous Sulfate (Ferrous Sulfate) 325 mg PO DAILY@0800 [facility] Last Admin: 10/12/19 08:56 Dose: 325 mg Documented by: Folic Acid (Folic Acid) 1 mg PO DAILYCM [facility] Last Admin: 10/12/19 08:55 Dose: 1 mg Documented by: Glucagon () 1 mg IM .X1 PRN PRN Reason: Hypoglycemia Sodium Chloride () 500 mls @ 15 mls/hr IV PRN PRN PRN Reason: Blood Transfusion Last Infusion: 10/11/19 14:46 Dose: Infused Documented by: Sodium Chloride () 250 mls @ 15 mls/hr IV .[id number] PRN PRN Reason: Saline Flush Last Infusion: 10/11/19 22:42 Dose: Infused Documented by: Insulin Human Lispro (Humalog Kwikpen (Bkc)) 0 unit SC TIDAC [facility]; Protocol Last Admin: 10/12/19 15:53 Dose: Not Given Documented by: Levetiracetam (Keppra Oral Solution) 1,000 mg PO BID [facility] Last Admin: 10/12/19 08:54 Dose: 1,000 mg Documented by: Levothyroxine Sodium (Synthroid) 75 mcg PO DAILY@0600 [facility] Last Admin: 10/12/19 05:36 Dose: 75 mcg Documented by: Morphine Sulfate () 2 - 4 mg IV Q2H PRN PRN PRN Reason: Pain Score 4-7/10 Morphine Sulfate () 2 - 4 mg IV Q2H PRN PRN PRN Reason: Pain Score 8-10/10 Ondansetron HCl (Zofran) 4 mg IV Q8H PRN PRN PRN Reason: NAUSEA/VOMITING Oxycodone HCl (Oxyir) 10 mg PO Q6H PRN PRN PRN Reason: Pain Score 1-10/10 Pregabalin (Lyrica) 300 mg PO BID [facility] Last Admin: 10/12/19 09:00 Dose: 300 mg Documented by: Quetiapine Fumarate (Seroquel) 400 mg PO QHS [facility] Last Admin: 10/11/19 21:37 Dose: 400 mg Documented by: Senna/Docusate Sodium (Senokot-S, Linda-Colace) 2 tablet PO BID [facility] Last Admin: 10/12/19 08:54 Dose: Not Given Documented by: Sodium Chloride () 10 - 40 ml IV UD PRN PRN Reason: SALINE FLUSH Last Admin: 10/11/19 13:10 Dose: 10 ml Documented by: Medical Necessity - Tobacco Use Smoking Status: Heavy Smoker (>10/day) Tobacco Use: Cigarettes Assessment/Plan #1 new onset seizure probably secondary to hypocalcemia-patient will remain on Keppra #2 hypocalcemia-probably secondary to his non-small cell lung cancer, I will recheck the patient's calcium tomorrow morning, patient's corrected calcium for his hypoalbuminemia is 8.7 according to pulmonary medicine. #3 right femoral neck fracture-status post right hemiarthroplasty postop day #1-continue PT and OT, orthopedic surgery is following #4 anemia-probably secondary to chemotherapy-patient's hemoglobin this morning was 8.4 #5 non-small cell lung cancer #6 essential hypertension #7 type 2 diabetes-monitor blood sugars at this time #8 psychiatric disorder-type unknown, patient is on antidepressants and antianxiety medications. #9 hypomagnesemia-corrected Inpatient E&M: 72278 Subs Hosp L2
[2019-10-12] MEDS: oxyCODONE 5 MG Tablet 10 MG PO (18:08)
[2019-10-12] MEDS: Senna/Docusate Sodium 1 Tablet 2 TABLET PO (21:43)
[2019-10-12] MEDS: Atorvastatin Calcium 40 MG Tablet PO (21:43)
[2019-10-12] MEDS: QUEtiapine 100 MG Tablet 400 MG PO (21:43)
[2019-10-12 21:50] LABS: Bedside Glucose 136 mg/dL (70-110)
[2019-10-13] VITALS (11 sets, daily range): BP systolic 106–143; BP diastolic 55–88; PULSE 105–118; RESP 17–18; TEMP 36.7–37.3; O2SAT 92–95
[2019-10-13] MEDS: Acetaminophen 325 MG Tablet 650 MG PO (03:37)
[2019-10-13] MEDS: Levothyroxine 75 MCG Tablet PO (05:18)
[2019-10-13 06:35] LABS: Bedside Glucose 101 mg/dL (70-110)
[2019-10-13 07:27] LABS: Absolute Lymphocyte Count 0.53 X10^3/uL (0.83-4.51); Absolute Neutrophil Count 4.5 X10^3/uL (2.0-7.7); Eosinophil# 0.02 X10^3/uL; Eosinophils% 0.3 % (0-5); Hematocrit 23.7 % (40-54); Hemoglobin 8.2 g/dL (13.0-16.5); Lymphocyte # 0.53 X10^3/ul (4.0); Lymphocyte % 8.9 % (19-41); Mean Corp Hgb Conc 34.6 g/dL (32-36); Mean Corpuscular Hgb 35.2 pg (27.0-32.0); Mean Corpuscular Volume 101.7 fL (80-94); Mean Platelet Vol. 11.9 fl (6.2-12.0); Monocyte# 0.82 X10^3/uL; Monocyte% 13.7 % (0-10); NRBC Flagged by Analyzer 0 % (0-5); Neutrophil # 4.54 X10^3/uL (2.7-7.7); Neutrophil % 76.1 % (47-70); POSITIVE DIFFERENTIAL YES; Platelet Count 122 K/mm3 (150-450); RBC Distribution Width CV 17.3 % (11.6-14.6); RBC Distribution Width SD 62.3 fl (35.1-43.9); Red Blood Count 2.33 M/mm3 (4.6-6.2)
[2019-10-13 07:29] LABS: Differential Indicated SCAN CRITERIA MET
[2019-10-13 08:05] LABS: ALB/GLOB Ratio 0.4 RATIO (0.9-2.4); AST(SGOT) 41 U/L (15-37); Alanine Aminotransfer ALT/SGPT 13 U/L (16-61); Albumin, Serum 1.7 g/dL (3.2-5.0); Alkaline Phosphatase 88 U/L (45-117); Anion Gap 5 (5-15); BUN 13 mg/dL (7-18); BUN/Creat Ratio 16.6 RATIO (10-20); Calcium,Total 7.2 mg/dL (8.5-10.1); Chloride 105 mmol/L (98-107); Creatinine, Serum 0.78 mg/dL (0.70-1.30); EST Glomerular Filtration Rate 108 mL/min (>60); Est Glom Filt Rate - Afr Amer 131 mL/min (>60); Estimated Creatinine Clearance 98.87 ml/min; Globulin 4.3 g/dL (2.2-4.2); Glucose 98 mg/dL (74-106); Magnesium 1.1 mg/dL (1.6-2.6); Phosphorus 1.2 mg/dL (2.5-4.9); Potassium 3.4 mmol/L (3.5-5.1); Sodium Level 137 mmol/L (136-145)
--- NOTE | 2019-10-13 10:32 | CASEMGMT ---
Addendum entered by Silvia Courtney 10/13/19 10:50: Social Work Return call from Suzanne in [facility] and they can accept pt. Precert will be started with insurance. Pt notified. Plan: [facility], pending insurance precert MERLE Ortega Original Note: Social Work SW met with pt to discuss discharge plan. SW presenting options of home with home health, SNF and inpatient Rehab. Pt stating he was thinking of going home where he lives alone, but does like the idea of more aggressive therapy so he can get better faster. Pt agreeable to referral being made to Inpatient Rehab at [facility]. SW placed call to Suzanne in [facility] and referral made. Will await determination if they can accept. Plan: Inpt Rehab, pending acceptance and insurance approval MERLE Ortega
[2019-10-13] MEDS: Ferrous Sulfate 325 MG Tablet PO (11:11)
[2019-10-13] MEDS: levETIRAcetam Oral Solution 500 MG/5 ML 1000 MG PO ×2 (11:12→21:12)
[2019-10-13] MEDS: Pregabalin 75 MG Capsule 300 MG PO ×2 (11:12→21:17)
[2019-10-13] MEDS: Folic Acid 1 MG Tablet PO (11:12)
[2019-10-13] MEDS: Citalopram 40 MG TABLET PO (11:12)
[2019-10-13 11:55] LABS: Bedside Glucose 178 mg/dL (70-110)
[2019-10-13] MEDS: oxyCODONE 5 MG Tablet 10 MG PO ×2 (13:32→21:14)
--- NOTE | 2019-10-13 15:34 | PCM.PROGNOTE ---
Subjective: Patient was seen and examined today, he has indicated that he would like to go to a rehab facility for inpatient rehab services if possible, patient states he does not want to go to a halfway facility. Patient's labs are improved today but his magnesium is still low. Patient does not complain of any shortness of breath or chest discomfort. - Physical Exam Vitals/I&O's: Vital Signs Temp Pulse Resp BP Pulse Ox 98.2 F 105 H 17 126/72 H 94 10/13/19 10:39 10/13/19 11:54 10/13/19 10:39 10/13/19 10:39 10/13/19 10:39 Oxygen Flow Rate (L/min) 2 Oxygen Delivery Method Room Air Weight: 76.7 kg Body Mass Index (BMI) 26.4 Intake and Output for Last 24 Hours 10/11/19 10/12/19 10/13/19 23:59 23:59 23:59 Intake Total 1311.75 / 2111.75 1800 / 1800 680 / 680 Output Total 3700 / 3850 1000 / 1000 Balance -2388.25 / -1738.25 800 / 800 680 / 680 General: Alert, Oriented x3, Cooperative, No apparent distress, Well developed HEENT: Atraumatic, PERRLA, EOMI, Normocephalic Oral: Moist Mucosa Neck: Supple, Trachea Midline, Thyroid Normal Size and Texture Lungs: Clear to auscultation, Normal air movement, No rhonchi, No wheeze, No rales Cardiovascular: Regular rate, Regular Rhythm, Normal S1, Normal S2, No murmurs, PMI Normal, No rub noted Abdomen: Bowel Sounds Present, Soft, Non Tender, Non-Distended, No hernias noted Extremities: No clubbing, No cyanosis, No edema, Capillary Refill Less than 3 Seconds Skin: No rashes Neurological: Cranial nerves II-XII grossly intact, Neuro grossly intact, Sensory exam intact to light touch and pain, Coordination normal Psych/Mental Status: Normal Affect, Appropriate, Alert and oriented to time, place, person, mood and affect Microbiology Past 72 Hours 10/12/19 18:15 Stool Stool Occult Blood (DELIA) - Final Occult Blood Positive Laboratory Results 10/09/19 12:20: Crossmatch See Detail 10/12/19 15:47: POC Glucose 138 H 10/12/19 21:39: POC Glucose 136 H 10/13/19 06:30: POC Glucose 101 10/13/19 06:59: WBC 6.0, RBC 2.33 L, Hgb 8.2 L, Hct 23.7 L, MCV 101.7 H, MCH 35.2 H, MCHC 34.6, RDW Std Deviation 62.3 H, RDW Coeff of Sophie 17.3 H, Plt Count 122 L, MPV 11.9, Immature Gran % (Auto) 1.000 H, Neut % (Auto) 76.1 H, Lymph % (Auto) 8.9 L, [place] % (Auto) 13.7 H, Eos % (Auto) 0.3, Baso % (Auto) 0.0, Absolute Neuts (auto) 4.5, Absolute Lymphs (auto) 0.53 L, Nucleated RBC % 0, Differential Comment COMMENT 10/13/19 06:59: Sodium 137, Potassium 3.4 L, Chloride 105, Carbon Dioxide 27.0, Anion Gap 5, BUN 13, Creatinine 0.78, Estim Creat Clear Calc 98.87, Est GFR (MDRD) Af Amer 131, Est GFR (MDRD) Non-Af 108, BUN/Creatinine Ratio 16.6, Glucose 98, Calcium 7.2 L, Phosphorus 1.2 L, Magnesium 1.1 L, Total Bilirubin 0.20, AST 41 H, ALT 13 L, Alkaline Phosphatase 88, Total Protein 6.0 L, Albumin 1.7 L, Globulin 4.3 H, Albumin/Globulin Ratio 0.4 L 10/13/19 11:18: POC Glucose 178 H Current Medications Acetaminophen (Tylenol) 650 mg PO Q6H PRN PRN PRN Reason: Pain Score 1-10/Temp > 100.7 F Last Admin: 10/13/19 03:37 Dose: 650 mg Documented by: Atorvastatin Calcium (Lipitor) 40 mg PO QHS [facility] Last Admin: 10/12/19 21:43 Dose: 40 mg Documented by: Citalopram Hydrobromide (Celexa) 40 mg PO DAILY [facility] Last Admin: 10/13/19 11:12 Dose: 40 mg Documented by: Dextrose (D50w Syringe) 0 gm IV X1 PRN; Protocol PRN Reason: Hypoglycemia Enoxaparin Sodium (Lovenox) 40 mg SC DAILY@0600 [facility] Last Admin: 10/13/19 05:17 Dose: Not Given Documented by: Ferrous Sulfate (Ferrous Sulfate) 325 mg PO DAILY@0800 [facility] Last Admin: 10/13/19 11:11 Dose: 325 mg Documented by: Folic Acid (Folic Acid) 1 mg PO DAILYCM [facility] Last Admin: 10/13/19 11:12 Dose: 1 mg Documented by: Glucagon () 1 mg IM .X1 PRN PRN Reason: Hypoglycemia Sodium Chloride () 500 mls @ 15 mls/hr IV PRN PRN PRN Reason: Blood Transfusion Last Infusion: 10/11/19 14:46 Dose: Infused Documented by: Sodium Chloride () 250 mls @ 15 mls/hr IV .[id number] PRN PRN Reason: Saline Flush Last Infusion: 10/11/19 22:42 Dose: Infused Documented by: Insulin Human Lispro (Humalog Kwikpen (Bkc)) 0 unit SC TIDAC [facility]; Protocol Last Admin: 10/13/19 11:20 Dose: Not Given Documented by: Levetiracetam (Keppra Oral Solution) 1,000 mg PO BID [facility] Last Admin: 10/13/19 11:12 Dose: 1,000 mg Documented by: Levothyroxine Sodium (Synthroid) 75 mcg PO DAILY@0600 [facility] Last Admin: 10/13/19 05:18 Dose: 75 mcg Documented by: Morphine Sulfate () 2 - 4 mg IV Q2H PRN PRN PRN Reason: Pain Score 4-7/10 Morphine Sulfate () 2 - 4 mg IV Q2H PRN PRN PRN Reason: Pain Score 8-10/10 Ondansetron HCl (Zofran) 4 mg IV Q8H PRN PRN PRN Reason: NAUSEA/VOMITING Oxycodone HCl (Oxyir) 10 mg PO Q6H PRN PRN PRN Reason: Pain Score 1-10/10 Last Admin: 10/13/19 13:32 Dose: 10 mg Documented by: Pregabalin (Lyrica) 300 mg PO BID [facility] Last Admin: 10/13/19 11:12 Dose: 300 mg Documented by: Quetiapine Fumarate (Seroquel) 400 mg PO QHS [facility] Last Admin: 10/12/19 21:43 Dose: 400 mg Documented by: Senna/Docusate Sodium (Senokot-S, Linda-Colace) 2 tablet PO BID [facility] Last Admin: 10/13/19 11:08 Dose: Not Given Documented by: Sodium Chloride () 10 - 40 ml IV UD PRN PRN Reason: SALINE FLUSH Last Admin: 10/11/19 13:10 Dose: 10 ml Documented by: Medical Necessity - Tobacco Use Smoking Status: Heavy Smoker (>10/day) Tobacco Use: Cigarettes Assessment/Plan #1 new onset seizure probably secondary to hypocalcemia-patient will remain on Keppra #2 hypocalcemia-probably secondary to his non-small cell lung cancer #3 right femoral neck fracture-status post right hemiarthroplasty postop day #2-continue PT and OT, orthopedic surgery is following #4 anemia-probably secondary to chemotherapy-patient's hemoglobin this morning was 8.2 #5 non-small cell lung cancer #6 essential hypertension #7 type 2 diabetes-monitor blood sugars at this time #8 psychiatric disorder-type unknown, patient is on antidepressants and antianxiety medications. #9 hypomagnesemia-I will place the patient on oral Mag-Ox, magnesium will be rechecked Inpatient E&M: 94151 Subs Hosp L2
--- NOTE | 2019-10-13 16:15 | CASEMGMT ---
Social Work Return call to Suzanne in [facility] and precert has not been obtained yet. Pt to be here over the weekend with hopes to get precert on Wednesday. Pt made aware and agreeable. MERLE Ortega
[2019-10-13] MEDS: Magnesium Oxide 400 MG Tablet PO (17:07)
[2019-10-13 17:55] LABS: Bedside Glucose 121 mg/dL (70-110)
[2019-10-13] MEDS: Atorvastatin Calcium 40 MG Tablet PO (21:12)
[2019-10-13] MEDS: Senna/Docusate Sodium 1 Tablet 2 TABLET PO (21:13)
[2019-10-13] MEDS: QUEtiapine 100 MG Tablet 400 MG PO (21:13)
[2019-10-13 23:36] LABS: Bedside Glucose 110 mg/dL (70-110)
[2019-10-14] VITALS (12 sets, daily range): BP systolic 119–137; BP diastolic 67–88; PULSE 107–120; RESP 16–20; TEMP 36.8–37.7; O2SAT 92–100
--- NOTE | 2019-10-14 03:16 | NURSING ---
During VS assessment, pt found to have oxygen saturation of around 79% on room air. Placed on 2L nasal cannula and encouraged deep breathing. Oxygen saturation improved to 94% on 2L nasal cannula. Will continue to monitor.
[2019-10-14] MEDS: Levothyroxine 75 MCG Tablet PO (05:11)
--- NOTE | 2019-10-14 05:45 | RAD_ITS ---
HISTORY: DYSPNEA ADDITIONAL HISTORY: None provided. COMPARISON: 10/09/2019 TECHNIQUE: Frontal and lateral chest radiographs. Number of images including paperwork: 2 FINDINGS: LUNGS AND PLEURA: Persistent opacity at the left apex. Mild decrease in left apical pleural fluid. The lungs are otherwise clear. CARDIAC SILHOUETTE: Stable. MEDIASTINUM AND PABLO: Stable. UPPER ABDOMEN: Unremarkable. SKELETON AND SOFT TISSUES: No acute findings. OTHER DEVICES AND HARDWARE: None. RAD/Chest PA and Lateral IMPRESSION: No acute cardiopulmonary abnormality. Grossly unchanged left upper lobe infiltrate versus mass. at 0617 Reported and signed by: Zaina Butt MD Electronically Signed: Zaina Butt MD at 6:17 EDT Tel , Service support ,
[2019-10-14 07:06] LABS: Bedside Glucose 117 mg/dL (70-110)
[2019-10-14 07:30] LABS: Absolute Lymphocyte Count 0.51 X10^3/uL (0.83-4.51); Absolute Neutrophil Count 5.4 X10^3/uL (2.0-7.7); Basophil# 0.01 X10^3/uL; Basophil% 0.1 % (0-1); Eosinophil# 0.02 X10^3/uL; Eosinophils% 0.3 % (0-5); Hematocrit 24.2 % (40-54); Hemoglobin 8.3 g/dL (13.0-16.5); Lymphocyte # 0.51 X10^3/ul (4.0); Lymphocyte % 7.3 % (19-41); Mean Corp Hgb Conc 34.3 g/dL (32-36); Mean Corpuscular Hgb 35.2 pg (27.0-32.0); Mean Corpuscular Volume 102.5 fL (80-94); Mean Platelet Vol. 11.6 fl (6.2-12.0); Monocyte# 1.05 X10^3/uL; NRBC Flagged by Analyzer 0 % (0-5); Neutrophil # 5.35 X10^3/uL (2.7-7.7); Neutrophil % 76.2 % (47-70); POSITIVE DIFFERENTIAL YES; Platelet Count 146 K/mm3 (150-450); RBC Distribution Width CV 17.5 % (11.6-14.6); RBC Distribution Width SD 62.5 fl (35.1-43.9); Red Blood Count 2.36 M/mm3 (4.6-6.2)
[2019-10-14 08:04] LABS: ALB/GLOB Ratio 0.4 RATIO (0.9-2.4); AST(SGOT) 41 U/L (15-37); Alanine Aminotransfer ALT/SGPT 16 U/L (16-61); Albumin, Serum 1.8 g/dL (3.2-5.0); Alkaline Phosphatase 95 U/L (45-117); Anion Gap 6 (5-15); BUN 10 mg/dL (7-18); BUN/Creat Ratio 13.9 RATIO (10-20); Calcium,Total 7.4 mg/dL (8.5-10.1); Chloride 103 mmol/L (98-107); Creatinine, Serum 0.72 mg/dL (0.70-1.30); EST Glomerular Filtration Rate 119 mL/min (>60); Est Glom Filt Rate - Afr Amer 144 mL/min (>60); Estimated Creatinine Clearance 107.11 ml/min; Globulin 4.7 g/dL (2.2-4.2); Glucose 110 mg/dL (74-106); Phosphorus 2.4 mg/dL (2.5-4.9); Potassium 3.1 mmol/L (3.5-5.1); Protein, Total 6.5 g/dL (6.4-8.2); Sodium Level 138 mmol/L (136-145)
[2019-10-14 08:13] LABS: Differential Indicated SCAN CRITERIA MET
[2019-10-14 08:19] LABS: Differential Comment SCANNED
[2019-10-14] MEDS: Ferrous Sulfate 325 MG Tablet PO (10:01)
[2019-10-14] MEDS: levETIRAcetam Oral Solution 500 MG/5 ML 1000 MG PO ×2 (10:01→21:04)
[2019-10-14] MEDS: Folic Acid 1 MG Tablet PO (10:01)
[2019-10-14] MEDS: Citalopram 40 MG TABLET PO (10:01)
[2019-10-14] MEDS: Senna/Docusate Sodium 1 Tablet 2 TABLET PO ×2 (10:01→21:03)
[2019-10-14] MEDS: Magnesium Oxide 400 MG Tablet PO ×2 (10:01→16:58)
[2019-10-14] MEDS: Pregabalin 75 MG Capsule 300 MG PO ×2 (10:02→21:07)
[2019-10-14] MEDS: oxyCODONE 5 MG Tablet 10 MG PO ×2 (10:02→16:58)
--- NOTE | 2019-10-14 11:36 | PN_ITS ---
Subjective: Patient was seen and examined today, he voices no complaints of any shortness of breath or chest pain, patient's potassium was slightly low today I gave him oral supplementation and placed him on daily oral potassium. - Physical Exam Vitals/I&O's: Vital Signs Temp Pulse Resp BP Pulse Ox 98.7 F 111 H 18 135/77 H 92 10/14/19 09:54 10/14/19 09:54 10/14/19 09:54 10/14/19 09:54 10/14/19 09:54 Oxygen Flow Rate (L/min) 2 Oxygen Delivery Method Room Air Weight: 75.4 kg Body Mass Index (BMI) 26.4 Intake and Output for Last 24 Hours 10/12/19 10/13/19 10/14/19 23:59 23:59 23:59 Intake Total 1800 / 1800 2780 / 2780 300 / 300 Output Total 1000 / 1000 Balance 800 / 800 2780 / 2780 300 / 300 General: Alert, Oriented x3, Cooperative, No apparent distress, Well developed HEENT: Atraumatic, PERRLA, EOMI, Normocephalic Oral: Moist Mucosa Neck: Supple, Trachea Midline, Thyroid Normal Size and Texture Lungs: Clear to auscultation, Normal air movement, No rhonchi, No wheeze, No rales Cardiovascular: Regular rate, Regular Rhythm, Normal S1, Normal S2, No murmurs, PMI Normal, No rub noted Abdomen: Bowel Sounds Present, Soft, Non Tender, Non-Distended, No hernias noted Extremities: No clubbing, No cyanosis, Capillary Refill Less than 3 Seconds Skin: No rashes Neurological: Cranial nerves II-XII grossly intact, Neuro grossly intact, Sensory exam intact to light touch and pain, Coordination normal Psych/Mental Status: Normal Affect, Appropriate, Alert and oriented to time, place, person, mood and affect Microbiology Past 72 Hours 10/12/19 18:15 Stool Stool Occult Blood (DELIA) - Final Occult Blood Positive Laboratory Results 10/13/19 06:59: PTH Intact Pending 10/13/19 11:18: POC Glucose 178 H 10/13/19 17:04: POC Glucose 121 H 10/13/19 21:11: POC Glucose 110 10/14/19 06:16: Sodium 138, Potassium 3.1 L, Chloride 103, Carbon Dioxide 29.0, Anion Gap 6, BUN 10, Creatinine 0.72, Estim Creat Clear Calc 107.11, Est GFR (MDRD) Af Amer 144, Est GFR (MDRD) Non-Af 119, BUN/Creatinine Ratio 13.9, Glucose 110 H, Calcium 7.4 L, Phosphorus 2.4 L, Magnesium 1.0 L, Total Bilirubin 0.30, AST 41 H, ALT 16, Alkaline Phosphatase 95, Total Protein 6.5, Albumin 1.8 L, Globulin 4.7 H, Albumin/Globulin Ratio 0.4 L 10/14/19 06:59: POC Glucose 117 H 10/14/19 07:02: WBC 7.0, RBC 2.36 L, Hgb 8.3 L, Hct 24.2 L, MCV 102.5 H, MCH 35.2 H, MCHC 34.3, RDW Std Deviation 62.5 H, RDW Coeff of Sophie 17.5 H, Plt Count 146 L, MPV 11.6, Immature Gran % (Auto) 1.100 H, Neut % (Auto) 76.2 H, Lymph % (Auto) 7.3 L, Baker % (Auto) 15.0 H, Eos % (Auto) 0.3, Baso % (Auto) 0.1, Absolute Neuts (auto) 5.4, Absolute Lymphs (auto) 0.51 L, Nucleated RBC % 0, Differential Comment SCANNED Current Medications Acetaminophen (Tylenol) 650 mg PO Q6H PRN PRN PRN Reason: Pain Score 1-10/Temp > 100.7 F Last Admin: 10/13/19 03:37 Dose: 650 mg Documented by: Atorvastatin Calcium (Lipitor) 40 mg PO QHS [facility] Last Admin: 10/13/19 21:12 Dose: 40 mg Documented by: Citalopram Hydrobromide (Celexa) 40 mg PO DAILY [facility] Last Admin: 10/14/19 10:01 Dose: 40 mg Documented by: Enoxaparin Sodium (Lovenox) 40 mg SC DAILY@0600 [facility] Last Admin: 10/14/19 05:11 Dose: Not Given Documented by: Ferrous Sulfate (Ferrous Sulfate) 325 mg PO DAILY@0800 [facility] Last Admin: 10/14/19 10:01 Dose: 325 mg Documented by: [facility]) [facility] Last Admin: 10/14/19 10:01 Dose: 1 mg Documented by: Sodium Chloride () 250 mls @ 15 mls/hr IV .[id number] PRN PRN Reason: Saline Flush Last Infusion: 10/11/19 22:42 Dose: Infused Documented by: Levetiracetam (Keppra Oral Solution) 1,000 mg PO BID [facility] Last Admin: 10/14/19 10:01 Dose: 1,000 mg Documented by: Levothyroxine Sodium (Synthroid) 75 mcg PO DAILY@0600 [facility] Last Admin: 10/14/19 05:11 Dose: 75 mcg Documented by: Magnesium Oxide (Mag-Ox 400) [facility] Last Admin: 10/14/19 10:01 Dose: 400 mg Documented by: Ondansetron HCl (Zofran) 4 mg IV Q8H PRN PRN PRN Reason: NAUSEA/VOMITING Oxycodone HCl (Oxyir) 10 mg PO Q6H PRN PRN PRN Reason: Pain Score 1-10/10 Last Admin: 10/14/19 10:02 Dose: 10 mg Documented by: Potassium Chloride (K-Dur) 40 meq PO X1 ONE Stop: 10/14/19 12:01 Potassium Chloride (K-Dur) [facility] Pregabalin (Lyrica) 300 mg PO BID [facility] Last Admin: 10/14/19 10:02 Dose: 300 mg Documented by: Quetiapine Fumarate (Seroquel) 400 mg PO QHS [facility] Last Admin: 10/13/19 21:13 Dose: 400 mg Documented by: Senna/Docusate Sodium (Senokot-S, Linda-Colace) 2 tablet PO BID [facility] Last Admin: 10/14/19 10:01 Dose: 2 tablet Documented by: Sodium Chloride () 10 - 40 ml IV UD PRN PRN Reason: SALINE FLUSH Last Admin: 10/11/19 13:10 Dose: 10 ml Documented by: Medical Necessity - Tobacco Use Smoking Status: Heavy Smoker (>10/day) Tobacco Use: Cigarettes Assessment/Plan #1 new onset seizure probably secondary to hypocalcemia-patient will remain on Keppra #2 hypocalcemia-probably secondary to his non-small cell lung cancer #3 right femoral neck fracture-status post right hemiarthroplasty postop day #3- continue PT and OT, orthopedic surgery is following #4 anemia-probably secondary to chemotherapy, patient's hemoglobin today was 8.3 #5 non-small cell lung cancer #6 essential hypertension #7 type 2 diabetes-monitor blood sugars at this time #8 psychiatric disorder-type unknown, patient is on antidepressants and antianxiety medications. #9 hypomagnesemia-patient is currently on Mag-Ox, magnesium today was 1, I will give him IV magnesium supplementation Inpatient E&M: 52708 Subs Hosp L2
[2019-10-14 12:01] LABS: Bedside Glucose 194 mg/dL (70-110)
[2019-10-14] MEDS: 0.9% Saline Lock 10 ML Syringe IV (13:17)
[2019-10-14] MEDS: Magnesium Sulfate 4gm/100mL 4 GM/100 ML IV.SOLN. IV (13:18)
[2019-10-14] MEDS: Lisinopril 10 MG Tablet PO (15:12)
[2019-10-14 16:46] LABS: Bedside Glucose 122 mg/dL (70-110)
[2019-10-14] MEDS: metFORMIN HCl 1,000 MG Tablet 1000 MG PO (17:39)
[2019-10-14] MEDS: QUEtiapine 100 MG Tablet 400 MG PO (21:03)
[2019-10-14] MEDS: Atorvastatin Calcium 40 MG Tablet PO (21:03)
[2019-10-14 22:16] LABS: Bedside Glucose 126 mg/dL (70-110)
[2019-10-14] MEDS: traZODone 50 MG Tablet PO (23:27)
[2019-10-15] VITALS (12 sets, daily range): BP systolic 101–138; BP diastolic 54–76; PULSE 102–118; RESP 16–18; TEMP 36.4–37.7; O2SAT 93–96
[2019-10-15] MEDS: Levothyroxine 75 MCG Tablet PO (05:48)
[2019-10-15 06:15] LABS: Absolute Lymphocyte Count 0.54 X10^3/uL (0.83-4.51); Absolute Neutrophil Count 4.9 X10^3/uL (2.0-7.7); Basophil# 0.02 X10^3/uL; Basophil% 0.3 % (0-1); Eosinophil# 0.06 X10^3/uL; Eosinophils% 0.9 % (0-5); Hematocrit 23.5 % (40-54); Hemoglobin 7.7 g/dL (13.0-16.5); Lymphocyte # 0.54 X10^3/ul (4.0); Lymphocyte % 8.3 % (19-41); Mean Corp Hgb Conc 32.8 g/dL (32-36); Mean Corpuscular Hgb 34.8 pg (27.0-32.0); Mean Corpuscular Volume 106.3 fL (80-94); Mean Platelet Vol. 11.9 fl (6.2-12.0); Monocyte# 0.89 X10^3/uL; Monocyte% 13.7 % (0-10); NRBC Flagged by Analyzer 0 % (0-5); Neutrophil # 4.88 X10^3/uL (2.7-7.7); Neutrophil % 74.8 % (47-70); POSITIVE DIFFERENTIAL YES; Platelet Count 134 K/mm3 (150-450); RBC Distribution Width CV 17.5 % (11.6-14.6); RBC Distribution Width SD 64.4 fl (35.1-43.9); Red Blood Count 2.21 M/mm3 (4.6-6.2); White Blood Count 6.5 K/mm3 (4.4-11.0)
[2019-10-15 06:16] LABS: Bedside Glucose 111 mg/dL (70-110)
[2019-10-15 06:19] LABS: Anion Gap 4 (5-15); BUN 12 mg/dL (7-18); BUN/Creat Ratio 14.9 RATIO (10-20); Calcium,Total 7.6 mg/dL (8.5-10.1); Chloride 105 mmol/L (98-107); Creatinine, Serum 0.81 mg/dL (0.70-1.30); EST Glomerular Filtration Rate 105 mL/min (>60); Est Glom Filt Rate - Afr Amer 127 mL/min (>60); Estimated Creatinine Clearance 95.21 ml/min; Glucose 109 mg/dL (74-106); Magnesium 1.5 mg/dL (1.6-2.6); Phosphorus 2.9 mg/dL (2.5-4.9); Potassium 3.7 mmol/L (3.5-5.1); Sodium Level 139 mmol/L (136-145)
[2019-10-15 06:49] LABS: Differential Indicated SCAN CRITERIA MET
[2019-10-15 07:34] LABS: Anisocytosis 2+; Differential Comment SCANNED; Hypochromasia 1+; Macrocytosis 2+
[2019-10-15] MEDS: oxyCODONE 5 MG Tablet 10 MG PO ×2 (07:52→21:13)
[2019-10-15] MEDS: Pregabalin 75 MG Capsule 300 MG PO ×2 (09:35→21:15)
[2019-10-15] MEDS: Lisinopril 10 MG Tablet PO (09:36)
[2019-10-15] MEDS: Pantoprazole Sodium 40 MG Tablet PO (09:36)
[2019-10-15] MEDS: Folic Acid 1 MG Tablet PO (09:36)
[2019-10-15] MEDS: metFORMIN HCl 1,000 MG Tablet 1000 MG PO ×2 (09:36→17:09)
[2019-10-15] MEDS: Senna/Docusate Sodium 1 Tablet 2 TABLET PO (09:36)
[2019-10-15] MEDS: Magnesium Oxide 400 MG Tablet PO ×2 (09:36→17:02)
[2019-10-15] MEDS: Ferrous Sulfate 325 MG Tablet PO (09:37)
[2019-10-15] MEDS: levETIRAcetam Oral Solution 500 MG/5 ML 1000 MG PO ×2 (09:37→21:12)
[2019-10-15] MEDS: Citalopram 40 MG TABLET PO (09:37)
[2019-10-15] MEDS: 0.9% Saline Lock 10 ML Syringe IV (11:14)
[2019-10-15 11:21] LABS: Bedside Glucose 117 mg/dL (70-110)
--- NOTE | 2019-10-15 15:22 | PCM.PROGNOTE ---
Subjective: Patient was seen and examined today, he was on oxygen last night again-not sure why his oxygen sat dropped at night. Patient has no complaints of any shortness of breath or chest pain. Patient's hemoglobin today was 7.7, he does not appear hypotensive however. I gave the patient IV Tere for today, I will recheck his CBC in the morning. Patient's magnesium was slightly low at 1.5, I have elected not to give IV magnesium today-patient is on oral magnesium, I do not feel this needs to be rechecked tomorrow. - Physical Exam Vitals/I&O's: Vital Signs Temp Pulse Resp BP Pulse Ox 99.8 F H 103 H 16 117/57 L 95 10/15/19 15:02 10/15/19 15:02 10/15/19 15:02 10/15/19 15:02 10/15/19 15:02 Oxygen Flow Rate (L/min) 2 Oxygen Delivery Method Room Air Weight: 75.2 kg Body Mass Index (BMI) 26.4 Intake and Output for Last 24 Hours 10/13/19 10/14/19 10/15/19 23:59 23:59 23:59 Intake Total 2780 / 2780 1600 / 1999 1370 / 1370 Balance 2780 / 2780 1600 / 1999 1370 / 1370 General: Alert, Oriented x3, Cooperative, No apparent distress, Well developed HEENT: Atraumatic, PERRLA, EOMI, Normocephalic Oral: Moist Mucosa Neck: Supple, No JVD, Trachea Midline, Thyroid Normal Size and Texture Lungs: Clear to auscultation, Normal air movement, No rhonchi, No wheeze, No rales Cardiovascular: Regular rate, Regular Rhythm, Normal S1, Normal S2, No murmurs, PMI Normal, No rub noted Abdomen: Bowel Sounds Present, Soft, Non Tender, Non-Distended, No hernias noted Extremities: No clubbing, No cyanosis, Capillary Refill Less than 3 Seconds Skin: No rashes Neurological: Cranial nerves II-XII grossly intact, Neuro grossly intact, Sensory exam intact to light touch and pain, Coordination normal Psych/Mental Status: Normal Affect, Appropriate, Alert and oriented to time, place, person, mood and affect Microbiology Past 72 Hours 10/12/19 18:15 Stool Stool Occult Blood (DELIA) - Final Occult Blood Positive Laboratory Results 10/14/19 16:38: POC Glucose 122 H 10/14/19 21:01: POC Glucose 126 H 10/15/19 05:18: WBC 6.5, RBC 2.21 L, Hgb 7.7 L, Hct 23.5 L, MCV 106.3 H, MCH 34.8 H, MCHC 32.8, RDW Std Deviation 64.4 H, RDW Coeff of Sophie 17.5 H, Plt Count 134 L, MPV 11.9, Immature Gran % (Auto) 2.000 H, Neut % (Auto) 74.8 H, Lymph % (Auto) 8.3 L, Andrew % (Auto) 13.7 H, Eos % (Auto) 0.9, Baso % (Auto) 0.3, Absolute Neuts (auto) 4.9, Absolute Lymphs (auto) 0.54 L, Nucleated RBC % 0, Differential Comment SCANNED, Hypochromasia 1+, Anisocytosis 2+, Macrocytosis 2+ 10/15/19 05:18: Sodium 139, Potassium 3.7, Chloride 105, Carbon Dioxide 30.0, Anion Gap 4 L, BUN 12, Creatinine 0.81, Estim Creat Clear Calc 95.21, Est GFR (MDRD) Af Amer 127, Est GFR (MDRD) Non-Af 105, BUN/Creatinine Ratio 14.9, Glucose 109 H, Calcium 7.6 L, Phosphorus 2.9, Magnesium 1.5 L 10/15/19 06:12: POC Glucose 111 H 10/15/19 11:13: POC Glucose 117 H Current Medications Acetaminophen (Tylenol) 650 mg PO Q6H PRN PRN PRN Reason: Pain Score 1-10/Temp > 100.7 F Last Admin: 10/13/19 03:37 Dose: 650 mg Documented by: Atorvastatin Calcium (Lipitor) 40 mg PO QHS [facility] Last Admin: 10/14/19 21:03 Dose: 40 mg Documented by: Citalopram Hydrobromide (Celexa) 40 mg PO DAILY [facility] Last Admin: 10/15/19 09:37 Dose: 40 mg Documented by: Diazepam (Valium) 5 mg PO Q8H PRN PRN PRN Reason: MS Enoxaparin Sodium (Lovenox) 40 mg SC DAILY@0600 [facility] Last Admin: 10/15/19 05:54 Dose: Not Given Documented by: Ferrous Sulfate (Ferrous Sulfate) 325 mg PO DAILY@0800 [facility] Last Admin: 10/15/19 09:37 Dose: 325 mg Documented by: [facility]) [facility] Last Admin: 10/15/19 09:36 Dose: 1 mg Documented by: Sodium Chloride () 250 mls @ 15 mls/hr IV .[id number] PRN PRN Reason: Saline Flush Last Infusion: 10/11/19 22:42 Dose: Infused Documented by: Levetiracetam (Keppra Oral Solution) 1,000 mg PO BID [facility] Last Admin: 10/15/19 09:37 Dose: 1,000 mg Documented by: Levothyroxine Sodium (Synthroid) 75 mcg PO DAILY@0600 [facility] Last Admin: 10/15/19 05:48 Dose: 75 mcg Documented by: Lisinopril (Zestril) 10 mg PO DAILY [facility] Last Admin: 10/15/19 09:36 Dose: 10 mg Documented by: Magnesium [facility]ide (Mag-Ox 400) [facility] Last Admin: 10/15/19 09:36 Dose: 400 mg Documented by: Metformin [facility] (Glucophage) [facility] Last Admin: 10/15/19 09:36 Dose: 1,000 mg Documented by: Ondansetron HCl (Zofran) 4 mg IV Q8H PRN PRN PRN Reason: NAUSEA/VOMITING Oxycodone HCl (Oxyir) 10 mg PO Q6H PRN PRN PRN Reason: Pain Score 1-10/10 Last Admin: 10/15/19 07:52 Dose: 10 mg Documented by: Pantoprazole Sodium (Protonix) 40 mg PO DAILY [facility] Last Admin: 10/15/19 09:36 Dose: 40 mg Documented by: Potassium Chloride (K-Dur) [facility] Last Admin: 10/15/19 09:36 Dose: 20 meq Documented by: Pregabalin (Lyrica) 300 mg PO BID [facility] Last Admin: 10/15/19 09:35 Dose: 300 mg Documented by: Quetiapine Fumarate (Seroquel) 400 mg PO QHS [facility] Last Admin: 10/14/19 21:03 Dose: 400 mg Documented by: Senna/Docusate Sodium (Senokot-S, Linda-Colace) 2 tablet PO BID [facility] Last Admin: 10/15/19 09:36 Dose: 2 tablet Documented by: Sodium Chloride () 10 - 40 ml IV UD PRN PRN Reason: SALINE FLUSH Last Admin: 10/15/19 11:14 Dose: 10 ml Documented by: Trazodone HCl (Desyrel) 50 mg PO QHS [facility] Last Admin: 10/14/19 23:27 Dose: 50 mg Documented by: Medical Necessity - Tobacco Use Smoking Status: Heavy Smoker (>10/day) Tobacco Use: Cigarettes Assessment/Plan #1 new onset seizure probably secondary to hypocalcemia-patient will remain on Keppra #2 hypocalcemia-probably secondary to his non-small cell lung cancer #3 right femoral neck fracture-status post right hemiarthroplasty postop day #4-continue PT and OT, orthopedic surgery is following, again we are waiting for word from the patient's insurance company about whether the patient can go to the rehab unit at [facility] for inpatient rehab services. Again, if his insurance company does not approve the rehab unit, patient was not sure he wanted to go to a [facility] facility instead of going home. #4 anemia-probably secondary to chemotherapy, patient's hemoglobin today was 7.7, again I have elected not to give packed red blood cells today, I gave the patient Tere for, CBC will be rechecked tomorrow #5 non-small cell lung cancer #6 essential hypertension #7 type 2 diabetes-monitor blood sugars at this time #8 psychiatric disorder-type unknown, patient is on antidepressants and antianxiety medications. #9 hypomagnesemia-patient is currently on Mag-Ox, magnesium today was 1.5 Inpatient E&M: [id number] Subs Hosp L2
[2019-10-15 17:06] LABS: Bedside Glucose 139 mg/dL (70-110)
[2019-10-15] MEDS: Atorvastatin Calcium 40 MG Tablet PO (21:12)
[2019-10-15] MEDS: QUEtiapine 100 MG Tablet 400 MG PO (21:12)
[2019-10-15 23:10] LABS: Bedside Glucose 106 mg/dL (70-110)
[2019-10-16] VITALS (11 sets, daily range): BP systolic 106–119; BP diastolic 54–72; PULSE 78–112; RESP 16–18; TEMP 36.9–37.2; O2SAT 83–100
[2019-10-16] MEDS: Levothyroxine 75 MCG Tablet PO (06:33)
[2019-10-16 06:40] LABS: Bedside Glucose 87 mg/dL (70-110)
[2019-10-16 07:13] LABS: Absolute Lymphocyte Count 0.64 X10^3/uL (0.83-4.51); Absolute Neutrophil Count 5.5 X10^3/uL (2.0-7.7); Basophil# 0.01 X10^3/uL; Basophil% 0.1 % (0-1); Eosinophil# 0.08 X10^3/uL; Eosinophils% 1.1 % (0-5); Hematocrit 23.3 % (40-54); Hemoglobin 7.8 g/dL (13.0-16.5); Lymphocyte # 0.64 X10^3/ul (4.0); Lymphocyte % 8.7 % (19-41); Mean Corp Hgb Conc 33.5 g/dL (32-36); Mean Corpuscular Hgb 35.5 pg (27.0-32.0); Mean Corpuscular Volume 105.9 fL (80-94); Monocyte# 1.06 X10^3/uL; Monocyte% 14.3 % (0-10); NRBC Flagged by Analyzer 0 % (0-5); Neutrophil # 5.45 X10^3/uL (2.7-7.7); Neutrophil % 73.8 % (47-70); POSITIVE MORPHOLOGY YES; Platelet Count 147 K/mm3 (150-450); RBC Distribution Width SD 65.7 fl (35.1-43.9); White Blood Count 7.4 K/mm3 (4.4-11.0)
[2019-10-16 07:19] LABS: Differential Indicated SCAN CRITERIA MET
[2019-10-16 07:48] LABS: Anisocytosis 1+; Platelet Estimate ADEQUATE (ADEQ); Red Cell Morphology N CHROM NORMAL (NORM C&C)
[2019-10-16] MEDS: Pregabalin 75 MG Capsule 300 MG PO ×2 (09:28→21:27)
[2019-10-16] MEDS: Magnesium Oxide 400 MG Tablet PO ×2 (09:29→16:37)
[2019-10-16] MEDS: Senna/Docusate Sodium 1 Tablet 2 TABLET PO ×2 (09:29→21:30)
[2019-10-16] MEDS: Lisinopril 10 MG Tablet PO (09:29)
[2019-10-16] MEDS: Citalopram 40 MG TABLET PO (09:29)
[2019-10-16] MEDS: Ferrous Sulfate 325 MG Tablet PO (09:29)
[2019-10-16] MEDS: Pantoprazole Sodium 40 MG Tablet PO (09:29)
[2019-10-16] MEDS: Folic Acid 1 MG Tablet PO (09:30)
[2019-10-16] MEDS: levETIRAcetam Oral Solution 500 MG/5 ML 1000 MG PO ×2 (09:30→21:26)
[2019-10-16 11:15] LABS: ALB/GLOB Ratio 0.4 RATIO (0.9-2.4); AST(SGOT) 38 U/L (15-37); Alanine Aminotransfer ALT/SGPT 19 U/L (16-61); Albumin, Serum 1.6 g/dL (3.2-5.0); Alkaline Phosphatase 86 U/L (45-117); Anion Gap 4 (5-15); BUN 13 mg/dL (7-18); BUN/Creat Ratio 16.3 RATIO (10-20); Calcium,Total 8.3 mg/dL (8.5-10.1); Chloride 106 mmol/L (98-107); EST Glomerular Filtration Rate 106 mL/min (>60); Est Glom Filt Rate - Afr Amer 129 mL/min (>60); Globulin 4.4 g/dL (2.2-4.2); Glucose 94 mg/dL (74-106); Magnesium 1.4 mg/dL (1.6-2.6); Potassium 4.1 mmol/L (3.5-5.1); Sodium Level 138 mmol/L (136-145)
[2019-10-16 11:32] LABS: PTHIN 136.3 pg/mL (18.4-80.1)
[2019-10-16] MEDS: metFORMIN HCl 1,000 MG Tablet 1000 MG PO ×2 (11:53→16:37)
[2019-10-16 12:05] LABS: Bedside Glucose 173 mg/dL (70-110)
--- NOTE | 2019-10-16 13:25 | PN_ITS ---
Reason for Visit: Follow-up on electrolyte imbalances/right hip fracture s/p repair Subjective: Patient was seen and examined. He feels improved. Waiting on pre-CERT for discharge to acute rehab. Denied any new complaints. Objective: Physical exam: General: Alert, Oriented x3, Cooperative, No apparent distress, Well developed HEENT: Atraumatic, PERRLA, EOMI, Normocephalic Oral: Moist Mucosa Neck: Supple, No JVD, Trachea Midline, Thyroid Normal Size and Texture Lungs: Clear to auscultation, Normal air movement, No rhonchi, No wheeze, No rales Cardiovascular: Regular rate, Regular Rhythm, Normal S1, Normal S2, No murmurs, PMI Normal, No rub noted Abdomen: Bowel Sounds Present, Soft, Non Tender, Non-Distended, No hernias noted Extremities: No clubbing, No cyanosis, Capillary Refill Less than 3 Seconds Skin: No rashes Neurological: Cranial nerves II-XII grossly intact, Neuro grossly intact, Sensory exam intact to light touch and pain, Coordination normal Psych/Mental Status: Normal Affect, Appropriate, Alert and oriented to time, place, person, mood and affect Vitals/I&O's: Vital Signs Temp Pulse Resp BP Pulse Ox 98.4 F 110 H 16 106/54 L 94 10/16/19 09:19 10/16/19 12:39 10/16/19 09:19 10/16/19 09:19 10/16/19 09:19 Oxygen Flow Rate (L/min) 3 Oxygen Delivery Method Nasal Cannula Weight: 74.5 kg Body Mass Index (BMI) 26.4 Intake and Output for Last 24 Hours 10/14/19 10/15/19 10/16/19 23:59 23:59 23:59 Intake Total 1599 2170 / 2170 480 / 480 Balance 1599 2170 / 2170 480 / 480 Laboratory Results 10/13/19 06:59: PTH Intact 136.3 H 10/15/19 17:00: POC Glucose 139 H 10/15/19 21:18: POC Glucose 106 10/16/19 06:34: POC Glucose 87 10/16/19 06:43: WBC 7.4, RBC 2.20 L, Hgb 7.8 L, Hct 23.3 L, MCV 105.9 H, MCH 35.5 H, MCHC 33.5, RDW Std Deviation 65.7 H, RDW Coeff of Sophie 18.0 H, Plt Count 147 L, MPV 12.0, Immature Gran % (Auto) 2.000 H, Neut % (Auto) 73.8 H, Lymph % (Auto) 8.7 L, [place] % (Auto) 14.3 H, Eos % (Auto) 1.1, Baso % (Auto) 0.1, Abs olute Neuts (auto) 5.5, Absolute Lymphs (auto) 0.64 L, Nucleated RBC % 0, Platelet Estimate ADEQUATE, RBC Morphology N CHROM, Anisocytosis 1+ 10/16/19 06:47: Sodium 138, Potassium 4.1, Chloride 106, Carbon Dioxide 28.0, Anion Gap 4 L, BUN 13, Creatinine 0.80, Estim Creat Clear Calc 96.40, Est GFR (MDRD) Af Amer 129, Est GFR (MDRD) Non-Af 106, BUN/Creatinine Ratio 16.3, Glucose 94, Calcium 8.3 L, Magnesium 1.4 L, Total Bilirubin 0.20, AST 38 H, ALT 19, Alkaline Phosphatase 86, Total Protein 6.0 L, Albumin 1.6 L, Globulin 4.4 H, Albumin/Globulin Ratio 0.4 L 10/16/19 11:51: POC Glucose 173 H Current Medications Acetaminophen (Tylenol) 650 mg PO Q6H PRN PRN PRN Reason: Pain Score 1-10/Temp > 100.7 F Last Admin: 10/13/19 03:37 Dose: 650 mg Documented by: Atorvastatin Calcium (Lipitor) 40 mg PO QHS [facility] Last Admin: 10/15/19 21:12 Dose: 40 mg Documented by: Citalopram Hydrobromide (Celexa) 40 mg PO DAILY [facility] Last Admin: 10/16/19 09:29 Dose: 40 mg Documented by: Diazepam (Valium) 5 mg PO Q8H PRN PRN PRN Reason: MS Enoxaparin Sodium (Lovenox) 40 mg SC DAILY@0600 [facility] Last Admin: 10/16/19 06:45 Dose: Not Given Documented by: Ferrous Sulfate (Ferrous Sulfate) 325 mg PO DAILY@0800 [facility] Last Admin: 10/16/19 09:29 Dose: 325 mg Documented by: Folic Acid (Folic Acid) [facility] Last Admin: 10/16/19 09:30 Dose: 1 mg Documented by: Sodium Chloride () 250 mls @ 15 mls/hr IV .[id number] PRN PRN Reason: Saline Flush Last Infusion: 10/11/19 22:42 Dose: Infused Documented by: Magnesium Sulfate () 4 gm in 100 mls @ 25 mls/hr IV X1 ONE Stop: 10/16/19 17:21 Levetiracetam (Keppra Oral Solution) 1,000 mg PO BID [facility] Last Admin: 10/16/19 09:30 Dose: 1,000 mg Documented by: Levothyroxine Sodium (Synthroid) 75 mcg PO DAILY@0600 [facility] Last Admin: 10/16/19 06:33 Dose: 75 mcg Documented by: Lisinopril (Zestril) 10 mg PO DAILY [facility] Last Admin: 10/16/19 09:29 Dose: 10 mg Documented by: Magnesium Oxide (Mag-Ox 400) [facility] Last Admin: 10/16/19 09:29 Dose: 400 mg Documented by: Metformin HCl (Glucophage) 1,000 mg [facility] Last Admin: 10/16/19 11:53 Dose: 1,000 mg Documented by: Ondansetron HCl (Zofran) 4 mg IV Q8H PRN PRN PRN Reason: NAUSEA/VOMITING Oxycodone HCl (Oxyir) 10 mg PO Q6H PRN PRN PRN Reason: Pain Score 1-10/10 Last Admin: 10/15/19 21:13 Dose: 10 mg Documented by: Pantoprazole Sodium (Protonix) 40 mg PO DAILY [facility] Last Admin: 10/16/19 09:29 Dose: 40 mg Documented by: Potassium Chloride (K-Dur) 20 meq [facility] Last Admin: 10/16/19 09:29 Dose: 20 meq Documented by: Pregabalin (Lyrica) 300 mg PO BID [facility] Last Admin: 10/16/19 09:28 Dose: 300 mg Documented by: Quetiapine Fumarate (Seroquel) 400 mg PO QHS [facility] Last Admin: 10/15/19 21:12 Dose: 400 mg Documented by: Senna/Docusate Sodium (Senokot-S, Linda-Colace) 2 tablet PO BID [facility] Last Admin: 10/16/19 09:29 Dose: 2 tablet Documented by: Sodium Chloride () 10 - 40 ml IV UD PRN PRN Reason: SALINE FLUSH Last Admin: 10/15/19 11:14 Dose: 10 ml Documented by: Trazodone HCl (Desyrel) 50 mg PO QHS [facility] Last Admin: 10/14/19 23:27 Dose: 50 mg Documented by: STROKE Vital Signs/Narrative: Vital Signs Pulse 10/16/19 12:39 110 H Medical Necessity - Tobacco Use Smoking Status: Heavy Smoker (>10/day) Tobacco Use: Cigarettes Assessment/Plan 1. New onset seizure secondary to electrolyte imbalances, no more seizures seen since MRI brain is negative for metastatic disease Continue on Keppra 2. Hypomagnesemia, magnesium is 1.4, Will replace IV and po 3. Hypocalcemia, replaced, corrected calcium is 10.22, will monitor 4. POD # 5, status post right hip cemented hemiarthroplasty for right femoral neck fracture, waiting on insurance precertification for discharge 5. Anemia, mixed, secondary to anemia of chronic disease and acute blood loss anemia, Current hemoglobin is 7.8, stable, no acute drops Continue on oral iron 6. Non-small cell lung cancer, on chemotherapy, follows with oncology in the outpatient 7. Hypertension, controlled, continue metoprolol 8.Type 2 DM, blood sugars are controlled, continue metformin, blood glucose checks with insulin sliding scale 9.Probable chronic schizoaffective disorder, patient has an outpatient case management team Continue on Seroquel, trazodone, Celexa 10. DVT PPx- Lovenox SC Inpatient E&M: [id number] [facility] Hosp L2
[2019-10-16] MEDS: oxyCODONE 5 MG Tablet 10 MG PO ×2 (14:04→21:27)
[2019-10-16] MEDS: 0.9% Saline Lock 10 ML Syringe IV (14:05)
[2019-10-16] MEDS: Magnesium Sulfate 4gm/100mL 4 GM/100 ML IV.SOLN. IV (14:05)
[2019-10-16] MEDS: Acetaminophen 325 MG Tablet 650 MG PO (16:36)
[2019-10-16 16:46] LABS: Bedside Glucose 105 mg/dL (70-110)
[2019-10-16] MEDS: QUEtiapine 100 MG Tablet 400 MG PO (21:29)
[2019-10-16] MEDS: Atorvastatin Calcium 40 MG Tablet PO (21:30)
[2019-10-16] MEDS: traZODone 50 MG Tablet PO (21:30)
[2019-10-16 22:01] LABS: Bedside Glucose 132 mg/dL (70-110)
[2019-10-17] VITALS (9 sets, daily range): BP systolic 110–148; BP diastolic 61–69; PULSE 88–110; RESP 16; TEMP 36.7–36.9; O2SAT 92–94
[2019-10-17 05:24] LABS: Absolute Lymphocyte Count 0.44 X10^3/uL (0.83-4.51); Absolute Neutrophil Count 5.5 X10^3/uL (2.0-7.7); Basophil# 0.02 X10^3/uL; Basophil% 0.3 % (0-1); Eosinophil# 0.07 X10^3/uL; Hematocrit 23.7 % (40-54); Hemoglobin 7.6 g/dL (13.0-16.5); Lymphocyte # 0.44 X10^3/ul (4.0); Lymphocyte % 6.1 % (19-41); Mean Corp Hgb Conc 32.1 g/dL (32-36); Mean Corpuscular Hgb 35.5 pg (27.0-32.0); Mean Corpuscular Volume 110.7 fL (80-94); Mean Platelet Vol. 11.7 fl (6.2-12.0); Monocyte# 0.96 X10^3/uL; Monocyte% 13.4 % (0-10); NRBC Flagged by Analyzer 0 % (0-5); Neutrophil # 5.47 X10^3/uL (2.7-7.7); Neutrophil % 76.4 % (47-70); POSITIVE DIFFERENTIAL YES; POSITIVE MORPHOLOGY YES; Platelet Count 142 K/mm3 (150-450); RBC Distribution Width CV 18.6 % (11.6-14.6); RBC Distribution Width SD 70.4 fl (35.1-43.9); Red Blood Count 2.14 M/mm3 (4.6-6.2); White Blood Count 7.2 K/mm3 (4.4-11.0)
[2019-10-17 05:26] LABS: Differential Indicated SCAN CRITERIA MET
[2019-10-17 05:56] LABS: Differential Comment SCANNED; Microcytosis RARE; Polychromasia RARE; Reactive Lymphocyte RARE
[2019-10-17] MEDS: Levothyroxine 75 MCG Tablet PO (06:33)
[2019-10-17 06:46] LABS: Bedside Glucose 107 mg/dL (70-110)
[2019-10-17 07:50] LABS: ALB/GLOB Ratio 0.4 RATIO (0.9-2.4); AST(SGOT) 37 U/L (15-37); Alanine Aminotransfer ALT/SGPT 20 U/L (16-61); Albumin, Serum 1.6 g/dL (3.2-5.0); Alkaline Phosphatase 90 U/L (45-117); Anion Gap 3 (5-15); BUN 12 mg/dL (7-18); BUN/Creat Ratio 13.7 RATIO (10-20); Calcium,Total 8.6 mg/dL (8.5-10.1); Chloride 105 mmol/L (98-107); Creatinine, Serum 0.88 mg/dL (0.70-1.30); EST Glomerular Filtration Rate 95 mL/min (>60); Est Glom Filt Rate - Afr Amer 115 mL/min (>60); Estimated Creatinine Clearance 87.63 ml/min; Globulin 4.5 g/dL (2.2-4.2); Glucose 104 mg/dL (74-106); Magnesium 1.8 mg/dL (1.6-2.6); Potassium 4.1 mmol/L (3.5-5.1); Protein, Total 6.1 g/dL (6.4-8.2); Sodium Level 139 mmol/L (136-145)
--- NOTE | 2019-10-17 08:52 | CASEMGMT ---
MARTY received a message from Justa at [facility]. MARTY called her and left her a voice mail letting her know the plan is for [facility] 4th floor Rehab Unit pending insurance approval. Vera BENITES
[2019-10-17] MEDS: oxyCODONE 5 MG Tablet 10 MG PO ×2 (09:11→15:19)
[2019-10-17] MEDS: Pregabalin 75 MG Capsule 300 MG PO ×2 (09:11→21:04)
[2019-10-17] MEDS: Lisinopril 10 MG Tablet PO (09:14)
[2019-10-17] MEDS: levETIRAcetam Oral Solution 500 MG/5 ML 1000 MG PO ×2 (09:14→21:03)
[2019-10-17] MEDS: Citalopram 40 MG TABLET PO (09:15)
[2019-10-17] MEDS: Pantoprazole Sodium 40 MG Tablet PO (09:15)
[2019-10-17] MEDS: Ferrous Sulfate 325 MG Tablet PO (09:15)
[2019-10-17] MEDS: Folic Acid 1 MG Tablet PO (09:15)
[2019-10-17] MEDS: Senna/Docusate Sodium 1 Tablet 2 TABLET PO ×2 (09:15→21:03)
[2019-10-17] MEDS: Magnesium Oxide 400 MG Tablet PO ×2 (09:15→16:06)
[2019-10-17] MEDS: metFORMIN HCl 1,000 MG Tablet 1000 MG PO ×2 (09:16→16:06)
[2019-10-17] MEDS: Acetaminophen 325 MG Tablet 650 MG PO (10:28)
[2019-10-17] MEDS: 0.9% Saline Lock 10 ML Syringe IV (10:28)
--- NOTE | 2019-10-17 11:02 | CASEMGMT ---
MARTY received a call from Yoselyn Henderson at [facility]. MARTY notified her of patient's plan to go to Inpatient Rehab pending pre-cert. Vera DEAL MSW
--- NOTE | 2019-10-17 13:47 | PN_ITS ---
Reason for Visit: Follow-up on electrolyte imbalances/right hip fracture s/p repair Subjective: Patient was seen and examined. No acute events. Objective: Physical exam: General: Alert, Oriented x3, Cooperative, No apparent distress, Well developed HEENT: Atraumatic, PERRLA, EOMI, Normocephalic Oral: Moist Mucosa Neck: Supple, No JVD, Trachea Midline, Thyroid Normal Size and Texture Lungs: Clear to auscultation, Normal air movement, No rhonchi, No wheeze, No rales Cardiovascular: Regular rate, Regular Rhythm, Normal S1, Normal S2, No murmurs, PMI Normal, No rub noted Abdomen: Bowel Sounds Present, Soft, Non Tender, Non-Distended, No hernias noted Extremities: No clubbing, No cyanosis, Capillary Refill Less than 3 Seconds Skin: No rashes Neurological: Cranial nerves II-XII grossly intact, Neuro grossly intact, Sensory exam intact to light touch and pain, Coordination normal Psych/Mental Status: Normal Affect, Appropriate, Alert and oriented to time, place, person, mood and affect Vitals/I&O's: Vital Signs Temp Pulse Resp BP Pulse Ox 98.4 F 110 H 16 110/61 92 10/17/19 09:03 10/17/19 09:03 10/17/19 09:03 10/17/19 09:03 10/17/19 09:03 Oxygen Flow Rate (L/min) 2 Oxygen Delivery Method Room Air Weight: 74.6 kg Body Mass Index (BMI) 26.4 Intake and Output for Last 24 Hours 10/15/19 10/16/19 10/17/19 23:59 23:59 23:59 Intake Total 2170 / 2170 1090 / 1090 379 / 379 Output Total 450 / 450 Balance 2170 / 2170 640 / 640 379 / 379 Laboratory Results 10/16/19 16:28: POC Glucose 105 10/16/19 21:25: POC Glucose 132 H 10/17/19 05:06: WBC 7.2, RBC 2.14 L, Hgb 7.6 L, Hct 23.7 L, MCV 110.7 H, MCH 35.5 H, MCHC 32.1, RDW Std Deviation 70.4 H, RDW Coeff of Sophie 18.6 H, Plt Count 142 L, MPV 11.7, Immature Gran % (Auto) 2.800 H, Neut % (Auto) 76.4 H, Lymph % (Auto) 6.1 L, Jerome % (Auto) 13.4 H, Eos % (Auto) 1.0, Baso % (Auto) 0.3, Absolute Neuts (auto) 5.5, Absolute Lymphs (auto) 0.44 L, Nucleated RBC % 0, Differential Comment SCANNED, Reactive Lymphocytes RARE, Polychromasia RARE, M icrocytosis RARE 10/17/19 05:06: Sodium 139, Potassium 4.1, Chloride 105, Carbon Dioxide 31.0, Anion Gap 3 L, BUN 12, Creatinine 0.88, Estim Creat Clear Calc 87.63, Est GFR (MDRD) Af Amer 115, Est GFR (MDRD) Non-Af 95, BUN/Creatinine Ratio 13.7, Glucose 104, Calcium 8.6, Magnesium 1.8, Total Bilirubin 0.20, AST 37, ALT 20, Alkaline Phosphatase 90, Total Protein 6.1 L, Albumin 1.6 L, Globulin 4.5 H, Albumin/Globulin Ratio 0.4 L 10/17/19 06:31: POC Glucose 107 Current Medications Acetaminophen (Tylenol) 650 mg PO Q6H PRN PRN PRN Reason: Pain Score 1-10/Temp > 100.7 F Last Admin: 10/17/19 10:28 Dose: 650 mg Documented by: Atorvastatin Calcium (Lipitor) 40 mg PO QHS [facility] Last Admin: 10/16/19 21:30 Dose: 40 mg Documented by: Citalopram Hydrobromide (Celexa) 40 mg PO DAILY [facility] Last Admin: 10/17/19 09:15 Dose: 40 mg Documented by: Diazepam (Valium) 5 mg PO Q8H PRN PRN PRN Reason: MS Enoxaparin Sodium (Lovenox) 40 mg SC DAILY@0600 [facility] Last Admin: 10/17/19 06:33 Dose: Not Given Documented by: Ferrous Sulfate (Ferrous Sulfate) 325 mg PO DAILY@0800 [facility] Last Admin: 10/17/19 09:15 Dose: 325 mg Documented by: [facility]) [facility] Last Admin: 10/17/19 09:15 Dose: 1 mg Documented by: Sodium Chloride () 250 mls @ 15 mls/hr IV .[id number] PRN PRN Reason: Saline Flush Last Infusion: 10/16/19 18:05 Dose: Infused Documented by: Levetiracetam (Keppra Oral Solution) 1,000 mg PO BID [facility] Last Admin: 10/17/19 09:14 Dose: 1,000 mg Documented by: Levothyroxine Sodium (Synthroid) 75 mcg PO DAILY@0600 [facility] Last Admin: 10/17/19 06:33 Dose: 75 mcg Documented by: Lisinopril (Zestril) 10 mg PO DAILY [facility] Last Admin: 10/17/19 09:14 Dose: 10 mg Documented by: Magnesium [facility] ([facility]-Ox 400) [facility] Last Admin: 10/17/19 09:15 Dose: 400 mg Documented by: Metformin [facility] (Glucophage) [facility] Last Admin: 10/17/19 09:16 Dose: 1,000 mg Documented by: Ondansetron HCl (Zofran) 4 mg IV Q8H PRN PRN PRN Reason: NAUSEA/VOMITING Oxycodone HCl (Oxyir) 10 mg PO Q6H PRN PRN PRN Reason: Pain Score 1-10/10 Last Admin: 10/17/19 09:11 Dose: 10 mg Documented by: Pantoprazole Sodium (Protonix) 40 mg PO DAILY [facility] Last Admin: 10/17/19 09:15 Dose: 40 mg Documented by: Potassium Chloride (K-Dur) [facility] Last Admin: 10/17/19 09:14 Dose: 20 meq Documented by: Pregabalin (Lyrica) 300 mg PO BID [facility] Last Admin: 10/17/19 09:11 Dose: 300 mg Documented by: Qu[facility]apine [facility]) [facility] Last Admin: 10/16/19 21:29 Dose: 400 mg Documented by: Senna/Docusate Sodium (Senokot-S, Linda-Colace) 2 tablet PO BID [facility] Last Admin: 10/17/19 09:15 Dose: 2 tablet Documented by: Sodium Chloride () 10 - 40 ml IV UD PRN PRN Reason: SALINE FLUSH Last Admin: 10/17/19 10:28 Dose: 10 ml Documented by: Trazodone [facility]) [facility] Last Admin: 10/16/19 21:30 Dose: 50 mg Documented by: Medical Necessity - Tobacco Use Smoking Status: Heavy Smoker (>10/day) Tobacco Use: Cigarettes Assessment/Plan 1. New onset seizure secondary to electrolyte imbalances, stable MRI brain is negative for metastatic disease, on Keppra 2. Hypomagnesemia, magnesium is 1.8, Will continue to replace IV and po 3. Hypocalcemia, replaced, corrected calcium is 10.52, Will monitor 4. POD # 6, status post right hip cemented hemiarthroplasty for right femoral neck fracture, Waiting on insurance precertification for discharge 5. Anemia, mixed, secondary to anemia of chronic disease and acute blood loss anemia, Current hemoglobin is 7.6, stable, no acute drops Continue on oral iron 6. Non-small cell lung cancer, on chemotherapy, follows with oncology in the outpatient 7. Hypertension, controlled, continue metoprolol 8.Type 2 DM, blood sugars are controlled, continue metformin, blood glucose checks with insulin sliding scale 9.Probable chronic schizoaffective disorder, patient has an outpatient case management team Continue on Seroquel, trazodone, Celexa 10. DVT PPx- Lovenox SC Inpatient E&M: 07431 Subs Hosp L2
[2019-10-17 16:11] LABS: Bedside Glucose 125 mg/dL (70-110)
[2019-10-17] MEDS: Atorvastatin Calcium 40 MG Tablet PO (21:04)
[2019-10-17] MEDS: traZODone 50 MG Tablet PO (21:04)
[2019-10-17] MEDS: QUEtiapine 100 MG Tablet 400 MG PO (21:04)
[2019-10-17 21:50] LABS: Bedside Glucose 135 mg/dL (70-110)
[2019-10-18 03:00] VITALS: BP 114/62; PULSE 104; PULSE 108; RESP 17; TEMP 36.9; O2SAT 94
[2019-10-18] MEDS: Levothyroxine 75 MCG Tablet PO (06:40)
[2019-10-18 06:45] VITALS: PULSE 106
[2019-10-18 06:46] LABS: Bedside Glucose 121 mg/dL (70-110)
[2019-10-18 07:23] VITALS: O2SAT 93
[2019-10-18] MEDS: metFORMIN HCl 1,000 MG Tablet 1000 MG PO (08:08)
[2019-10-18] MEDS: Folic Acid 1 MG Tablet PO (08:09)
[2019-10-18] MEDS: Magnesium Oxide 400 MG Tablet PO (08:09)
[2019-10-18] MEDS: Ferrous Sulfate 325 MG Tablet PO (08:09)
--- NOTE | 2019-10-18 08:51 | DCINST_ITS ---
- Discharge Diagnoses Reason(s) for Visit for Discharge Instructions: Hip fracture, seizure, electrolyte imbalances You will use the following diet at home:: Calorie/Carbohydrate Controlled (specify 1200, 1400, etc), Cardiac Your food should be the consistency of: Regular Your liquids should be the consistency of: Regular/Thin Discharge Activity: Return to Normal Activity Allergies/Adverse Reactions: Allergies No Known Allergies Allergy (Verified 10/09/19 10:36) Medications to take at Discharge Atorvastatin Calcium [Lipitor] 40 mg PO QHS 12/15/16 Citalopram [Celexa] 40 mg PO DAILY 12/15/16 Ferrous Sulfate 325 mg PO DAILY@0800 12/27/17 Folic Acid 1 mg PO DAILY 08/25/19 Pregabalin 300 mg PO BID 08/25/19 Diazepam [Valium] 5 mg PO Q8H PRN PRN 10/09/19 Levothyroxine [Synthroid] 75 mcg PO DAILY 10/09/19 Omeprazole 40 mg PO DAILY 10/09/19 Quetiapine Fumarate 400 mg PO QHS 10/09/19 traZODone [Desyrel] 50 mg PO QHS 10/09/19 Acetaminophen [Tylenol Tablet] 650 mg PO Q6H PRN PRN tab 10/18/19 Enoxaparin [Lovenox] 40 mg SUBCUT DAILY@0600 syringe 10/18/19 Lisinopril [Zestril] 10 mg PO DAILY tab 10/18/19 Magnesium Oxide [Mag-Ox 400] 400 mg PO BIDCM tab 10/18/19 Oxycodone [Oxyir] 10 mg PO Q6H PRN PRN 5 Days #20 tab 10/18/19 Potassium Chloride [K-Dur] 20 meq PO DAILYCM tab 10/18/19 Senna/Docusate Sodium [Senokot-S] 2 tab PO BID tab 10/18/19 levETIRAcetam oral solution [Keppra Solution] 1,000 mg PO BID udc 10/18/19 metFORMIN HCl [Glucophage] 1,000 mg PO BIDCM tab 10/18/19 Primary Care Physician: Zurdo Esparza MD [Primary Care Provider] - Please follow up with your Primary Care Physician in: within 1-2 weeks of discharge Test Results: Test results from this visit will be discussed in further detail at your follow- up appointment, if applicable. Please Follow Up With: Zurdo Esparza MD Proposed Discharge Date: 10/18/19
--- NOTE | 2019-10-18 08:53 | DS.PCM_ITS ---
Discharge Date and Diagnosis Date of Admission: 10/09/19 Date of Discharge: 10/18/19 - Primary Discharge Diagnosis New onset seizure secondary to electrolyte imbalances Severe symptomatic anemia Severe thrombocytopenia Pancytopenia Hyponatremia Severe hypomagnesemia Hypocalcemia Hypokalemia Right hip fracture Acute on chronic anemia EVERARDO, present on admission - Secondary Discharge Diagnosis Non-small cell lung cancer Type II DM Hypertension Hypothyroidism Hospital Course and Treatment Imaging Results: Clinical Impression(s) from Imaging Studies Brain CT 10/09/19 10:39 IMPRESSION: Chronic involutional changes of the brain. Stable examination. Electronically Signed: Baljinder Olivo, at 11:34 EDT , Service support , Chest X-Ray 10/09/19 10:40 IMPRESSION: Consolidation in the left apex. This may represent either pneumonic infiltration versus a mass lesion. CT scan is recommended. Electronically Signed: Baljinder Olivo at 11:40 EDT , Service support , Hip/Pelvis X-Ray 10/09/19 10:40 IMPRESSION: Transverse fracture of the basilar cervical region of the right femoral neck with cephalic migration of the distal fracture fragment. Electronically Signed: Baljinder Olivo, at 11:39 EDT , Service support , Brain MRI 10/09/19 13:45 IMPRESSION: Mild atrophy and periventricular white matter ischemic changes without evidence for acute infarct. No focal enhancing lesions to suggest metastatic disease. Electronically Signed: Tommy Francis MD at 19:43 EDT , Service support , Hip X-Ray 10/12/19 08:28 IMPRESSION: Status post right total hip replacement. There is good alignment. Postoperative soft tissue changes. Electronically Signed: Baljinder Olivo at 9:44 EDT , Service support , Chest X-Ray 10/14/19 05:45 IMPRESSION: No acute cardiopulmonary abnormality. Grossly unchanged left upper lobe infiltrate versus mass. at 0617 Reported and signed by: Zaina Butt MD Electronically Signed: Zaina Butt MD at 6:17 EDT Tel , Service support , Orthopedic surgery Operations: total hip replacement - s/p right hip cemented arthroplasty on 10/11/19 Procedures: None Summary of Care Provided: The patient is a 54 year old M with past medical history of type II DM, non- small cell lung cancer, hypertension, Bridgette schizoaffective disorder, who follows with oncology in the outpatient seen after syncopal episode. He has a reported history of recurrent syncope and was said to have passed out as he tried to get up from his chair. He normally ambulates with a cane or walker but was not using it. He fell to the ground on his right hip. He complained of pain in his back and right hip. As he was going through work-up in the ED, patient did have a witnessed seizure in the CT scan. It was reportedly tonic-clonic, lasted about 40 seconds with postictal period. Work-up in the ED was significant for significant severe hypocalcemia, calcium level was less than 5, severe anemia with hemoglobin of 6.5. He received 2 units of packed RBC. He also received IV calcium gluconate in the ED. His magnesium level was 0.4, and that was replaced. 25-hydroxy vitamin D level was 8.6. PTH level 36.4, Potassium was 3.1 and that was replaced. CT scan of the brain showed chronic involutional changes of the brain. Chest x-ray showed consolidation in the left apex likely secondary to lung mass. X-ray of the right hip showed right transverse fracture of the right femoral neck with cephalad migration of the distal fracture fragment Patient was managed initially in the ICU. No acute events were seen. He was started on Keppra. MRI of the brain as well as EEG was requested. MRI showed mild atrophy and periventricular white matter ischemic changes without evidence of acute infarct. No focal enhancing lesion to suspect metastatic disease. EEG was normal. Patient seemed to improve. He underwent right hip cemented arthroplasty on 10/11/19. Postoperatively patient was stable. His electrolyte imbalances were monitored. He was seen and evaluated by PT/OT and recommended to undergo acute rehab. Discussed with acute rehab physician (Dr Newell), vitamin D levels will be replaced. Subjective: On the day of discharge, patient was seen and examined. Denied any new complaint. Objective: Physical exam: General: Alert, Oriented x3, Cooperative, No apparent distress, Well developed HEENT: Atraumatic, PERRLA, EOMI, Normocephalic Oral: Moist Mucosa Neck: Supple, No JVD, Trachea Midline, Thyroid Normal Size and Texture Lungs: Clear to auscultation, Normal air movement, No rhonchi, No wheeze, No rales Cardiovascular: Regular rate, Regular Rhythm, Normal S1, Normal S2, No murmurs, PMI Normal, No rub noted Abdomen: Bowel Sounds Present, Soft, Non Tender, Non-Distended, No hernias noted Extremities: No clubbing, No cyanosis, Capillary Refill Less than 3 Seconds Skin: No rashes Neurological: Cranial nerves II-XII grossly intact, Neuro grossly intact, Sensory exam intact to light touch and pain, Coordination normal Psych/Mental Status: Normal Affect, Appropriate, Alert and oriented to time, place, person, mood and affect - Physical Exam Vitals/I&O's: Vital Signs Temp Pulse Resp BP Pulse Ox 98.5 F 106 H 17 114/62 93 10/18/19 03:00 10/18/19 06:45 10/18/19 03:00 10/18/19 03:00 10/18/19 07:23 Oxygen Flow Rate (L/min) 1 Oxygen Delivery Method Nasal Cannula Weight: 75 kg Body Mass Index (BMI) 26.4 Intake and Output for Last 24 Hours 10/16/19 10/17/19 10/18/19 23:59 23:59 23:59 Intake Total 1090 / 1090 704 / 704 200 / 200 Output Total 450 / 450 Balance 640 / 640 704 / 704 200 / 200 Laboratory Results 10/17/19 16:06: POC Glucose 125 H 10/17/19 21:02: POC Glucose 135 H 10/18/19 06:39: POC Glucose 121 H Current Medications Acetaminophen (Tylenol) 650 mg PO Q6H PRN PRN PRN Reason: Pain Score 1-10/Temp > 100.7 F Last Admin: 10/17/19 10:28 Dose: 650 mg Documented by: Atorvastatin Calcium (Lipitor) 40 mg PO QHS [facility] Last Admin: 10/17/19 21:04 Dose: 40 mg Documented by: Citalopram Hydrobromide (Celexa) 40 mg PO DAILY [facility] Last Admin: 10/17/19 09:15 Dose: 40 mg Documented by: Dextrose (D50w Syringe) 0 gm IV X1 PRN; Protocol PRN Reason: Hypoglycemia Diazepam (Valium) 5 mg PO Q8H PRN PRN PRN Reason: MS Enoxaparin Sodium (Lovenox) 40 mg SC DAILY@0600 [facility] Last Admin: 10/17/19 06:33 Dose: Not Given Documented by: Ferrous Sulfate (Ferrous Sulfate) 325 mg PO DAILY@0800 [facility] Last Admin: 10/18/19 08:09 Dose: 325 mg Documented by: Folic Acid (Folic Acid) 1 mg PO DAILYCM [facility] Last Admin: 10/18/19 08:09 Dose: 1 mg Documented by: Glucagon () 1 mg IM .X1 PRN PRN Reason: Hypoglycemia Sodium Chloride () 250 mls @ 15 mls/hr IV .[id number] PRN PRN Reason: Saline Flush Last Infusion: 10/16/19 18:05 Dose: Infused Documented by: Insulin Human Lispro (Humalog Kwikpen (Bkc)) 0 unit SC [facility]; Protocol Last Admin: 10/18/19 06:39 Dose: Not Given Documented by: Levetiracetam (Keppra Oral Solution) 1,000 mg PO BID [facility] Last Admin: 10/17/19 21:03 Dose: 1,000 mg Documented by: Levothyroxine Sodium (Synthroid) 75 mcg PO DAILY@0600 [facility] Last Admin: 10/18/19 06:40 Dose: 75 mcg Documented by: Lisinopril (Zestril) 10 mg PO DAILY [facility] Last Admin: 10/17/19 09:14 Dose: 10 mg Documented by: [facility] 400) [facility] Last Admin: 10/18/19 08:09 Dose: 400 mg Documented by: Metformin [facility] (Glucophage) [facility] Last Admin: 10/18/19 08:08 Dose: 1,000 mg Documented by: Ondansetron HCl (Zofran) 4 mg IV Q8H PRN PRN PRN Reason: NAUSEA/VOMITING Oxycodone HCl (Oxyir) 10 mg PO Q6H PRN PRN PRN Reason: Pain Score 1-10/10 Last Admin: 10/17/19 15:19 Dose: 10 mg Documented by: Pantoprazole Sodium (Protonix) 40 mg PO DAILY [facility] Last Admin: 10/17/19 09:15 Dose: 40 mg Documented by: Potassium Chloride (K-Dur) [facility] Last Admin: 10/18/19 08:08 Dose: 20 meq Documented by: Pregabalin (Lyrica) 300 mg PO BID [facility] Last Admin: 10/17/19 21:04 Dose: 300 mg Documented by: Quetiapine [facility]umarate (Seroquel) [facility] Last Admin: 10/17/19 21:04 Dose: 400 mg Documented by: Senna/Docusate Sodium (Senokot-S, Linda-Colace) 2 tablet PO BID [facility] Last Admin: 10/17/19 21:03 Dose: 2 tablet Documented by: Sodium Chloride () 10 - 40 ml IV UD PRN PRN Reason: SALINE FLUSH Last Admin: 10/17/19 10:28 Dose: 10 ml Documented by: Trazodone HCl (Desyrel) [facility] Last Admin: 10/17/19 21:04 Dose: 50 mg Documented by: Discharge Diet: No Restrictions Discharge Activity: Return to Normal Activity Home Medications: Medications to take at Discharge Atorvastatin Calcium [Lipitor] 40 mg PO QHS 12/15/16 Citalopram [Celexa] 40 mg PO DAILY 12/15/16 Ferrous Sulfate 325 mg PO DAILY@0800 12/27/17 Folic Acid 1 mg PO DAILY 08/25/19 Pregabalin 300 mg PO BID 08/25/19 Diazepam [Valium] 5 mg PO Q8H PRN PRN 10/09/19 Levothyroxine [Synthroid] 75 mcg PO DAILY 10/09/19 Omeprazole 40 mg PO DAILY 10/09/19 Quetiapine Fumarate 400 mg PO QHS 10/09/19 traZODone [Desyrel] 50 mg PO QHS 10/09/19 Acetaminophen [Tylenol Tablet] 650 mg PO Q6H PRN PRN tab 10/18/19 Enoxaparin [Lovenox] 40 mg SUBCUT DAILY@0600 syringe 10/18/19 Lisinopril [Zestril] 10 mg PO DAILY tab 10/18/19 Magnesium Oxide [Mag-Ox 400] 400 mg PO BIDCM tab 10/18/19 Oxycodone [Oxyir] 10 mg PO Q6H PRN PRN 5 Days #20 tab 10/18/19 Potassium Chloride [K-Dur] 20 meq PO DAILYCM tab 10/18/19 Senna/Docusate Sodium [Senokot-S] 2 tab PO BID tab 10/18/19 levETIRAcetam oral solution [Keppra Solution] 1,000 mg PO BID [facility] 10/18/19 metFORMIN HCl [Glucophage] 1,000 mg PO BIDCM tab 10/18/19 Primary Care Physician: Zurdo Esparza MD [Primary Care Provider] - Please follow up with your Primary Care Physician in: within 1-2 weeks of discharge Please Follow Up With: Zurdo Esparza MD Disposition: Inpt Rehab Unit/Facility Minutes spent on discharge:: 40 Patient Condition:: Stable Medical Necessity - Tobacco Use Smoking Status: Heavy Smoker (>10/day) Tobacco Use: Cigarettes Meaningful Use Info Meaningful Use Diagnoses (Choose all that apply): None applicable Inpatient E&M: 35152 [facility] Hosp
--- NOTE | 2019-10-18 09:01 | CASEMGMT ---
Patient was approved to go to the Inpatient Rehab Unit. SW notified physician, patient, and special education secretary. Plan: [facility] 4th floor Rehab Unit Vera BENITES
--- NOTE | 2019-10-18 09:13 | CASEMGMT ---
MARTY called Yoselyn Henderson from [facility] and let her know patient was approved and will go to Inpatient Rehab today. MARTY also faxed her d/c instructions. Plan: [facility] 4th [facility] Inpatient Rehab Unit. Vera BENITES
[2019-10-18 09:14] VITALS: BP 116/66; PULSE 101; RESP 18; TEMP 36.2; O2SAT 92
[2019-10-18] MEDS: Acetaminophen 325 MG Tablet 650 MG PO (09:20)
[2019-10-18] MEDS: Pregabalin 75 MG Capsule 300 MG PO (09:20)
[2019-10-18] MEDS: oxyCODONE 5 MG Tablet 10 MG PO (09:20)
[2019-10-18] MEDS: Pantoprazole Sodium 40 MG Tablet PO (09:21)
[2019-10-18] MEDS: Lisinopril 10 MG Tablet PO (09:21)
[2019-10-18] MEDS: Senna/Docusate Sodium 1 Tablet 2 TABLET PO (09:21)
[2019-10-18] MEDS: Citalopram 40 MG TABLET PO (09:21)
[2019-10-18] MEDS: levETIRAcetam Oral Solution 500 MG/5 ML 1000 MG PO (09:22)
--- NOTE | 2019-10-18 10:00 | NURSING ---
This RN called and gave report to DANG Borjas at the rehab unit.
[2019-10-18 10:31] VITALS: O2SAT 92
[2019-10-18 10:50] LABS: Bedside Glucose 97 mg/dL (70-110)
== END 2019-10-18 11:21 | disposition skilled nursing facility (03) | DRG 628 ==
LOC: ED 13:37 → ICU 13:47 → PCU 10-12 13:29
PROVIDERS: Anesthesiology; Family Medicine; Internal Medicine; Internal Medicine Critical Care Medicine; Internal Medicine Hematology & Oncology; Orthopaedic Surgery; Emergency Provider Emergency Medicine; PCP Internal Medicine; Visit Provider Internal Medicine
PROC: 0SR90JZ Replacement of Right Hip Joint with Synthetic Substitute, Open Approach (ICD-10-PCS; CPT 27130; principal; 2019-10-11 15:05)
DX: E83.51 Hypocalcemia (principal); S72.001A Fracture of unspecified part of neck of right femur, initial encounter for closed fracture; G40.89 Other seizures; E87.1 Hypo-osmolality and hyponatremia; D62 Acute posthemorrhagic anemia; D61.818 Other pancytopenia; N17.9 Acute kidney failure, unspecified; C34.12 Malignant neoplasm of upper lobe, left bronchus or lung; E87.6 Hypokalemia; E83.42 Hypomagnesemia; D64.81 Anemia due to antineoplastic chemotherapy; T45.1X5A Adverse effect of antineoplastic and immunosuppressive drugs, initial encounter; E88.09 Other disorders of plasma-protein metabolism, not elsewhere classified; E86.9 Volume depletion, unspecified; E11.9 Type 2 diabetes mellitus without complications; I10 Essential (primary) hypertension; F25.9 Schizoaffective disorder, unspecified; E03.9 Hypothyroidism, unspecified; K21.9 Gastro-esophageal reflux disease without esophagitis; W19.XXXA Unspecified fall, initial encounter; Y93.01 Activity, walking, marching and hiking; Y99.9 Unspecified external cause status; F17.210 Nicotine dependence, cigarettes, uncomplicated; Z79.84 Long term (current) use of oral hypoglycemic drugs; Z79.899 Other long term (current) drug therapy
CPT/HCPCS: 36415; 70450; 70553; 71045; 71046; 73502; 80048; 80053; 82274; 82306; 82310; 82533; 82607; 82728; 82746; 82962; 83036; 83540; 83550; 83735; 83970; 84100; 84443; 84484; 85025; 85027; 85610; 86850; 86900; 86901; 86920; 87081; 87641; 88305; 88311; 93005; 95819; 97110; 97116; 97162; 97166; 97530; 97535; 99251; 99285; 99406; A9575; C1776; J1756; J7030; J7040; J7050; P9016; A4216; G0463; J0610; J0834; J2405; J3490

== ENCOUNTER 2019-10-18 11:30 | Inpatient (IN) | payer MEDICARE, MEDICAID, SELFPAY ==
[2019-10-09 21:45] VITALS: BMI 26.4
[2019-10-18 12:02] VITALS: BP 102/54; PULSE 95; RESP 18; TEMP 36.6; O2SAT 92; BMI 27.8; BMI 27.9
[2019-10-18 12:40] LABS: Bedside Glucose 91 mg/dL (70-110)
--- NOTE | 2019-10-18 13:27 | CASEMGMT ---
Social Work Reviewed and agreed with social work mechanical intern documentation on this date. Abby Montoya, [employer] INTERN
[2019-10-18] MEDS: oxyCODONE 5 MG Tablet 10 MG PO ×2 (15:07→21:39)
[2019-10-18 16:36] LABS: Bedside Glucose 127 mg/dL (70-110)
[2019-10-18 18:30] VITALS: O2SAT 92
[2019-10-18] MEDS: Magnesium Oxide 400 MG Tablet PO (18:36)
[2019-10-18] MEDS: metFORMIN HCl 1,000 MG Tablet 1000 MG PO (18:36)
[2019-10-18 19:32] VITALS: BP 109/67; PULSE 96; RESP 16; TEMP 36.8; O2SAT 92
[2019-10-18] MEDS: QUEtiapine 100 MG Tablet 400 MG PO (21:37)
[2019-10-18] MEDS: Atorvastatin Calcium 40 MG Tablet PO (21:38)
[2019-10-18] MEDS: levETIRAcetam Oral Solution 500 MG/5 ML 1000 MG PO (21:38)
[2019-10-18] MEDS: traZODone 50 MG Tablet PO (21:39)
[2019-10-18] MEDS: Pregabalin 75 MG Capsule 300 MG PO (21:45)
[2019-10-18 22:46] LABS: Bedside Glucose 94 mg/dL (70-110)
[2019-10-18] MEDS: Acetaminophen 325 MG Tablet 650 MG PO (23:31)
[2019-10-19] MEDS: oxyCODONE 5 MG Tablet 10 MG PO (03:42)
[2019-10-19 05:02] VITALS: BP 110/55; BP 97/59; BP 97/61; PULSE 110; PULSE 121; PULSE 99
[2019-10-19 05:19] VITALS: RESP 12; O2SAT 88; O2SAT 98
[2019-10-19] MEDS: Levothyroxine 75 MCG Tablet PO (05:27)
[2019-10-19] MEDS: Acetaminophen 325 MG Tablet 650 MG PO (05:27)
[2019-10-19] MEDS: Enoxaparin 40 MG/0.4 ML Syringe SC (05:27)
[2019-10-19 06:55] LABS: Bedside Glucose 114 mg/dL (70-110)
[2019-10-19 08:18] VITALS: BP 110/55; PULSE 99; RESP 12; TEMP 37.1; O2SAT 98
[2019-10-19] MEDS: Magnesium Oxide 400 MG Tablet PO ×2 (08:28→16:28)
[2019-10-19] MEDS: Lisinopril 10 MG Tablet PO (08:28)
[2019-10-19] MEDS: metFORMIN HCl 1,000 MG Tablet 1000 MG PO (08:28)
[2019-10-19] MEDS: Pantoprazole Sodium 40 MG Tablet PO (08:28)
[2019-10-19] MEDS: Senna/Docusate Sodium 1 Tablet 2 TABLET PO (08:28)
[2019-10-19] MEDS: Folic Acid 1 MG Tablet PO (08:28)
[2019-10-19] MEDS: levETIRAcetam Oral Solution 500 MG/5 ML 1000 MG PO (08:28)
[2019-10-19] MEDS: Pregabalin 75 MG Capsule 300 MG PO ×2 (08:28→21:31)
[2019-10-19] MEDS: Ferrous Sulfate 325 MG Tablet PO (08:28)
[2019-10-19] MEDS: Citalopram 40 MG TABLET PO (08:29)
[2019-10-19 10:05] LABS: Bedside Glucose 116 mg/dL (70-110)
--- NOTE | 2019-10-19 13:29 | PCM.HP.STD ---
Problem List (1) Closed right hip fracture Status: Acute Qualifiers: Encounter type: subsequent encounter (2) New onset seizure Status: Acute Comment: likely due to profound hypocalcemia (< 5) EEG and MRI normal (3) Hypocalcemia Status: Acute (4) Tobacco dependence Status: Acute (5) Bipolar disorder Status: Chronic (6) Encephalopathy acute Status: Acute Comment: suspect due to addition of high dose Keppra in a pt already on multiple sedating drugs (7) Hypertension Status: Chronic (8) Peripheral neuropathy Status: Acute Comment: due to compression of the left brachial plexus by pancoast tumor left apes due to adenocarcinoma (9) Hypothyroidism Status: Chronic (10) Diabetes mellitus type 2 in nonobese Status: Chronic (11) Chronic narcotic use Status: Chronic (12) GERD (gastroesophageal reflux disease) Status: Chronic Comment: with a hx of Breen's esophagus (13) Hypomagnesemia Status: Acute (14) Thrombocytopenia Status: Chronic (15) History of hemiarthroplasty of right hip Status: Acute Comment: 10/09/[address] Steven Shrestha (16) Chronic diarrhea Status: Chronic (17) Vitamin D deficiency Status: Acute (18) Adenocarcinoma of left lung Status: Chronic Comment: with a metastatic lesion in the RUL (19) Alcohol abuse Status: Chronic (20) Barretts esophagus Status: Chronic (21) Chronic hepatitis C Status: Chronic (22) History of illicit drug use Status: Acute (23) Iron deficiency anemia Status: Acute (24) Cannabis use, uncomplicated Status: Chronic Comment: admits to 1 joint a day History of Present Illness Date of Admission: 10/18/19 Chief Complaint: debility due to R hip fracture and subsequent right hemiarthroplasty The patient is a 54 year old M with a past medical history of alcohol abuse, tobacco dependence, illicit drug use, bipolar disorder, adenocarcinoma of the left lung with a Pancoast tumor on the left and a small metastatic nodule in the right apex, thrombocytopenia, macrocytic anemia, diabetes mellitus type 2, hypertension, vitamin D deficiency, GERD, history of Breen's esophagus, chronic diarrhea and recent admission to [facility] on 10/09/2019 for a right hip fracture sustained in a fall related to near syncope/syncope. At the time of that admission he had profound Hypocalcemia and hypomagnesemia with a calcium less than 5 and a magnesium of 0.4. He underwent R hemiarthroplasty by Dr. Shrestha on 10/09/2019. While having a CT of the brain he had a witnessed tonic clonic seizure and he had no hx of seizures. MRI and EEG were normal and I suspect the seizure was likely due to profound hypocalcemia, He was admitted to the [facility] on 10/18/19 for > 3 hours of therapy daily to restore him to his prior level of functioning. He had been using a cane and a walker at home prior to the fall. On the morning of 10/18 he is confused and so lethargic he can not do therapy. My suspicion is this is due to toxic encephalopathy due to the combined effects of multiple sedating drugs including Keppra 1000 mg p.o. twice daily, Seroquel 400 mg nightly, trazodone 50 mg nightly, Lyrica 300 mg p.o. twice daily, PRN benzo's and narcotics. OARRS was reviewed. I spoke to Lito from PT who saw him prior to DC from the acute hospital and he stated he was alert and appropriate when he evaluated him prior to transfer to rehab. Records from Dr. Laguerre were reviewed and all the notes from recent hospital stay were reviewed. All lab was reviewed. Hemoglobin A1c was only 5.4% on 10/10/2019 and I suspect he has likely been getting hypoglycemic at times. B12 and folate were normal. TSH was 1.71. Ferritin was 1996 and the serum iron was within normal limits. The TIBC is low at 131 and I suspect this reflects protein malnutrition. Vitamin D level was very low at 8.6. Review of the most recent lab which was done on 10/17/2019 shows a potassium of 4.1, sodium of 139, magnesium of 1.8, phosphorus of 2.9 and a calcium of 8.6. Calcium corrected for hypoalbuminemia is 10.5. His oncology regimen includes pembrolizumab, carboplatin and Pemetrexed. Carboplatin causes hypomagnesemia and hypocalcemia in a high percentage of patients. It also causes cytopenias and can cause diarrhea. Pembrolizumab also causes hypomagnesemia, hypocalcemia and diarrhea. Pemetrexed causes primarily neuropathy and cytopenias but can also cause diarrhea. Past Medical History Past Medical History (Chronic Problems): Chronic Problems Bipolar disorder (Chronic) Hypertension (Chronic) Hypothyroidism (Chronic) Diabetes mellitus type 2 in nonobese (Chronic) Chronic narcotic use (Chronic) GERD (gastroesophageal reflux disease) (Chronic) with a hx of Breen's esophagus Thrombocytopenia (Chronic) Chronic diarrhea (Chronic) Adenocarcinoma of left lung (Chronic) with a metastatic lesion in the RUL Alcohol abuse (Chronic) Barretts esophagus (Chronic) Chronic hepatitis C (Chronic) Cannabis use, uncomplicated (Chronic) admits to 1 joint a day Medical History: Medical History (Last Reviewed 10/19/19 @ 14:[address] Tiffany Newell DO) DM2 (diabetes mellitus, type 2) E11.9 Non-small cell lung cancer C34.90 HTN (hypertension) I10 Allergies No Known Allergies Allergy (Verified 10/09/19 10:36) Home Medications: Ambulatory Orders Medication Instructions Recorded Atorvastatin Calcium [Lipitor] 40 mg PO QHS 12/15/16 Citalopram [Celexa] 40 mg PO DAILY 12/15/16 Ferrous Sulfate 325 mg PO DAILY@0800 12/27/17 Folic Acid 1 mg PO DAILY 08/25/19 Pregabalin 300 mg PO BID 08/25/19 Diazepam [Valium] 5 mg PO Q8H PRN PRN 10/09/19 Levothyroxine [Synthroid] 75 mcg PO DAILY 10/09/19 Omeprazole 40 mg PO DAILY 10/09/19 Quetiapine Fumarate 400 mg PO QHS 10/09/19 traZODone [Desyrel] 50 mg PO QHS 10/09/19 Acetaminophen [Tylenol Tablet] 650 mg PO Q6H PRN PRN tab 10/18/19 Enoxaparin [Lovenox] 40 mg SUBCUT DAILY@0600 10/18/19 Ergocalciferol [Vitamin D] 50,000 unit PO Q7D 10/18/19 Lisinopril [Zestril] 10 mg PO DAILY 10/18/19 Magnesium Oxide [Mag-Ox 400] 400 mg PO BIDCM 10/18/19 Oxycodone [Oxyir] 10 mg PO Q6H PRN PRN 5 Days #20 tab 10/18/19 Potassium Chloride [K-Dur] 20 meq PO DAILYCM 10/18/19 Senna/Docusate Sodium [Senokot-S] 2 tab PO BID 10/18/19 levETIRAcetam oral solution 1,000 mg PO BID 10/18/19 [Keppra Solution] metFORMIN HCl [Glucophage] 1,000 mg PO BIDCM 10/18/19 Surgical History: noncontributory Psychiatric History: Bipolar - he tells me that he does not know if he is bipolar or not but, he thinks his mother is bipolar Lives: Alone - he is and has 2 children and they both live in [place] Smoking Status: Heavy Smoker (>10/day) - 1- 1 and 1/2 PPD Tobacco Use: Cigarettes Alcohol: Heavy - usually drinks a 6 Pack per day of beer Drugs: Marijuana - 1 joint a day - *Family History Maternal History Items: - - no lung cancer. He thinks his mother is bipolar Review of Systems Constitutional: Denies: Anorexia, Weight Change HEENT: Denies: Difficulty Swallowing Cardiovascular: Reports: Chest Pain Gastrointestinal: Reports: Diarrhea - anywhere from 3-4 BM's a day to 6-7 BM's a day Musculoskeletal: Denies: Arm Pain Psychiatric: Reports: Depression Unable to obtain accurate/complete ROS d/t: Limited due to encephalopathy and not being able to keep him awake VTE Information - Inpt Only VTE Present on Admission: No VTE Mechan Device Prophylaxis: Knee High WAYNE Hose VTE Pharm Prophylaxis ordered?: Yes Patient Problems: Active and Suspected Problems (Last Reviewed 10/19/19 @ 14:[address] Tiffany Newell, DO) Closed right hip fracture (Acute) New onset seizure (Acute) likely due to profound hypocalcemia (< 5) EEG and MRI normal Hypocalcemia (Acute) Tobacco dependence (Acute) Encephalopathy acute (Acute) suspect due to addition of high dose Keppra in a pt already on multiple sedating drugs Peripheral neuropathy (Acute) due to compression of the left brachial plexus by pancoast tumor left apes due to adenocarcinoma Hypomagnesemia (Acute) History of hemiarthroplasty of right hip (Acute) 10/09/[address] Steven Shrestha Vitamin D deficiency (Acute) History of illicit drug use (Acute) Iron deficiency anemia (Acute) - Physical Exam Vitals/I&O's: Vital Signs Temp Pulse Resp BP Pulse Ox 98.7 F 99 12 110/55 L 98 10/19/19 08:18 10/19/19 08:18 10/19/19 08:18 10/19/19 08:18 10/19/19 08:18 Oxygen Flow Rate (L/min) 2 Oxygen Delivery Method Nasal Cannula Weight: 178 lb Body Mass Index (BMI) 27.8 Orthostatic Vital Signs Start: 10/19/19 05:02 Freq: q24h Status: Active Protocol: Activity Type Activity Date Activity User E-Sign Co-Sign Detail Recorded Client Recorded Date Recorded By Document 10/19/19 05:02 [facility] [id number] 10/19/19 05:13 [facility] 10/19/19 05:02 Orthostatic Vitals Standing -Blood Pressure (90/60-120/80 mm Hg) 97/61 -Extremity Use Right Arm -Pulse Rate (60-100 beats/min) 121 H Sitting -Blood Pressure (90/60-120/80 mm Hg) 97/59 L -Extremity Use Right Arm -Pulse Rate (60-100 beats/min) 110 H Lying -Blood Pressure (90/60-120/80 mm Hg) 110/55 L -Extremity Use Right Arm -Pulse Rate (60-100 beats/min) 99 Intake and Output for Last 24 Hours 10/17/19 10/18/19 10/19/19 23:59 23:59 23:59 Intake Total 800 / 800 350 / 350 Output Total 800 / 800 Balance 0 / 0 350 / 350 General: Cooperative, No apparent distress, Well developed, Well nourished, Lethargic - keeps falling asleep while I am talking with him, - - He was able to tell me he is at [facility] and that the month was October. He was able to follow simple commands when he was awake. HEENT: Atraumatic, PERRLA, Normocephalic, - - No scleral icterus Oral: No Gingival or Mucosal Lesions/ Ulcerations, Dry Mucosa Neck: Supple, No JVD, No Nodes, Trachea Midline Lungs: Rales - Coarse Rales, no wheezing, not tachypneic, no accessory muscle use, no conversational dyspnea Cardiovascular: Regular Rhythm, Normal S1, Normal S2, No murmurs, No Ectopic Activity, No Gallop, Tachycardic - Heart rate at rest is 99 Abdomen: Bowel Sounds Present - Not hyperactive, Soft, Non Tender - No guarding with palpation., Distended - Mildly distended and tympanic Extremities: No cyanosis, No edema, No Calf Tenderness Skin: No rashes, No breakdown Lymphatic: - - No cervical or supraclavicular adenopathy. Neurological: Cranial nerves II-XII grossly intact, Neuro grossly intact Psych/Mental Status: - - can not determine this yet since he is unable to stay awake enough to have a good conversation Laboratory Results 10/18/19 16:31: POC Glucose 127 H 10/18/19 21:36: POC Glucose 94 10/19/19 06:41: POC Glucose 114 H 10/19/19 10:02: POC Glucose 116 H Current Medications Acetaminophen (Tylenol) 650 mg PO Q6H PRN PRN PRN Reason: Pain Score 1-10/Temp > 100.7 F Last Admin: 10/19/19 05:27 Dose: 650 mg Documented by: Atorvastatin Calcium (Lipitor) 40 mg PO QHS [facility] Last Admin: 10/18/19 21:38 Dose: 40 mg Documented by: Bisacodyl (Dulcolax) 10 mg RECTAL .PRN X 1 PRN PRN Reason: Constipation Citalopram Hydrobromide (Celexa) 40 mg PO DAILY [facility] Last Admin: 10/19/19 08:29 Dose: 40 mg Documented by: Diazepam (Valium) 5 mg PO Q8H PRN PRN PRN Reason: MS Enoxaparin Sodium (Lovenox) 40 mg SC DAILY@0600 [facility] Last Admin: 10/19/19 05:27 Dose: 40 mg Documented by: Ergocalciferol (Vitamin D) 50,000 unit PO Q7D@1000 [facility] Last Admin: 10/18/19 14:33 Dose: 50,000 unit Documented by: Ferrous Sulfate (Ferrous Sulfate) 325 mg PO DAILY@0800 [facility] Last Admin: 10/19/19 08:28 Dose: 325 mg Documented by: [facility] ([facility] Acid) [facility] Last Admin: 10/19/19 08:28 Dose: 1 mg Documented by: Insulin Human Lispro (Humalog Kwikpen (Bkc)) 0 unit SC [facility]; Protocol Last Admin: 10/19/19 11:11 Dose: Not Given Documented by: Levetiracetam (Keppra Oral Solution) 500 mg PO BID [facility] Levothyroxine Sodium (Synthroid) 75 mcg PO DAILY@0600 [facility] Last Admin: 10/19/19 05:27 Dose: 75 mcg Documented by: Lisinopril (Zestril) 10 mg PO DAILY [facility] Last Admin: 10/19/19 08:28 Dose: 10 mg Documented by: Magnesium Hydroxide (Milk Of Magnesia) 30 ml PO .PRN X 1 PRN PRN Reason: Constipation Magnesium Oxide (Mag-Ox 400) [facility] Last Admin: 10/19/19 08:28 Dose: 400 mg Documented by: Metformin HCl (Glucophage) [facility] Last Admin: 10/19/19 08:28 Dose: 1,000 mg Documented by: Oxycodone HCl (Oxyir) 10 mg PO Q6H PRN PRN PRN Reason: Pain Score 1-10/10 Last Admin: 10/19/19 03:42 Dose: 10 mg Documented by: Pantoprazole Sodium (Protonix) 40 mg PO DAILY [facility] Last Admin: 10/19/19 08:28 Dose: 40 mg Documented by: Potassium Chloride (K-Dur) 20 meq [facility] Last Admin: 10/19/19 08:28 Dose: 20 meq Documented by: Pregabalin (Lyrica) 300 mg PO BID [facility] Last Admin: 10/19/19 08:28 Dose: 300 mg Documented by: [facility]apine [facility]) [facility] Last Admin: 10/18/19 21:37 Dose: 400 mg Documented by: Senna/Docusate Sodium (Senokot-S, Linda-Colace) 2 tablet PO BID [facility] Last Admin: 10/19/19 08:28 Dose: 2 tablet Documented by: Trazodone HCl (Desyrel) [facility] Last Admin: 10/18/19 21:39 Dose: 50 mg Documented by: Assessment/Plan All Active Problems (Last Reviewed 10/19/19 @ 14:[address] Tiffany Newell, DO) Closed right hip fracture (Acute) New onset seizure (Acute) Hypocalcemia (Acute) Tobacco dependence (Acute) Encephalopathy acute (Acute) Peripheral neuropathy (Acute) Hypomagnesemia (Acute) History of hemiarthroplasty of right hip (Acute) Vitamin D deficiency (Acute) History of illicit drug use (Acute) Iron deficiency anemia (Acute) Impressions 1. Debility secondary to traumatic right hip fracture and subsequent repair/hemiarthroplasty on 10/09/[address] Steven Shrestha. 2. Tonic clonic seizure at admission most likely due to severe hypocalcemia. He has no history of seizures in the past and there are no metastatic lesions or evidence of a new stroke on MRI. EEG was negative. 3. Toxic encephalopathy secondary to the combined effects of many sedating drugs. Unable to do therapy at this time secondary to oversedation. 4. Severe hypocalcemia, severe hypomagnesemia - resolved. Both carboplatin and pembrolizumab cause hypocalcemia and hypomagnesemia. Will need to be on supplements at discharge. 5. Chronic diarrhea which likely contributes to hypomagnesemia. Pemetrexed can cause diarrhea. He is also on metformin 1000 mg p.o. twice daily. 6. Depression versus bipolar disorder. Patient thinks that his mother is bipolar and he is on a very high dose of Seroquel, 400 mg, at at bedtime. He is seen at the [facility] and his meds are managed by Dr. Arias. He is stable at the present time 7. History of peripheral neuropathy secondary to Pancoast tumor applying pressure to the brachial plexus in the left apex. Patient also has neuropathy associated with his chemotherapy. He is on high-dose Lyrica twice daily. 8. Diabetes mellitus type 2 9. Tobacco dependence 10. Heavy alcohol use-approximately a sixpack a day per patient 11. GERD with history of Breen's esophagus 12. Hypothyroidism 13. Thrombocytopenia 14. Vitamin D deficiency 15. Adenocarcinoma of the left lung with a Pancoast tumor and a small metastatic lesion in the right upper lobe. 16. Chronic hepatitis C 17. Remote history of illicit drug use 18. Chronic narcotic use 19. Iron deficiency anemia 20. Cannabis use PLAN PT for gait stability OT for ADL's ST for evaluation for cognitive functioning....can he safely administer his meds at home? Analgesics as needed Bowel protocol Fall precautions Assess for Anxiety/Depression GI prophylaxis with pantoprazole 40 mg p.o. daily DVT prophylaxis with enoxaparin 40 mg subcu daily Follow up with Dr. Steven Shrestha, Dr. Laguerre, Dr. Esparza following DC from [facility]hab May need [facility] and keep on seizure precautions. If he does not become more alert will need to start weaning down Lyrica and Seroquel Decrease the Oxy IR to 5 mg PO Q 4 H Check a BMP and magnesium in the a.m. CBC in the a.m. Inpatient E&M: 41421 Init Hosp L3
--- NOTE | 2019-10-19 14:33 | CASEMGMT ---
Social Work Completed advanced directives with patient. Pt named HCPOA as brother, Carmine Givens. Copies placed on chart. Abby Montoya, BERRY PICKER MACHINE OPERATOR METHODS ANALYST DATA PROCESSING
--- NOTE | 2019-10-19 15:19 | REHABEVAL_ITS ---
Admission Information Primary Diagnosis:: Debility secondary to recent fall resulting in a right hip fracture and subsequent surgical repair. Status Changes from Prescreening?: No changes Identified Actual Problem List:: Falls, Pain, ALteration in Cmfrt, Depression, Mobility Impaired, Self Care Deficit, Alteration-Leisure Activ. Potential Problem List:: DVT, Bleeding, Infection, UTI, Aspiration, Falls, Skin Integrity, Depression Risk of Complications DVT: LMWH, WAYNE Hose Bleeding: Monitor Lab Values, Nursing to Teach Precautions for anti-coagulation therapy., Wound, if applicable, to be assessed every shift., Stroke patients assessed for lethargy or change in status. Infection: Clinical Staff to Monitor for S/S of infection:, S/S of infection include fever, redness, warmth, etc. Urinary Tract Infection: Monitor for frequency, burning, discomfort, or incontinence., Nursing will obtain urine sample for urinalysis and C&S when ordered. Aspiration: Clinical staff will monitor for coughing, drooling, congestion., Speech will evaluate swallowing and dsyphasia., Nursing will monitor patient swallowing during meals. Falls: Patient will be evaluated for Fall Precautions, Patient will be placed on Fall Precautions as indicated per protocol. Skin Breakdown: Nursing will assess skin daily using assessment tool., Nursing will place on Skin Breakdown Precautions as indicated. Pain: Clinical staff will assess patient's pain level per protocol., Medications will be given, if needed, and the pain level reassessed., Other methods: Massage, distraction, decrease stimulus, etc. used PRN. Plan of Care Patient requires physician specializing in physical medicine and rehab oversight to provide close medical supervision of rehab issues including: Pain Management, Sleep Problems, Bowel and Bladder, Medical and co-morbidity Management, DVT prophylaxis, Rehabilitation Leadership, Coordination of treatment team Patient needs Physical Therapy: For a minimum of 1 hour, At least 5 out of 7 days Patient needs Physical Therapy to improve:: Mobility, Mobility, Mobility, Strengthening, Transfers, Stretching, ROM, Endurance, Stairs, Gait, Balance Patient needs Occupational Therapy: For a minimum of 1 hour, At least 5 out of 7 days Patient needs Occupational Therapy to improve ADL's incl.: Eating, Grooming, Bathing, Dressing, Toileting, Toilet transfers, Community Reintegration, Higher functioning activities, Household tasks, Adaptive Equipment, Splinting, Other activities as determined Patient requires speech therapy: For a minimum of 1 hour, At least 5 out of 7 days Patient requires speech therapy for: Swallowing, Cognition, Language Skills, Compensatory Strategies Patient requires 24/ Rehabilitation Nursing for: Pain Issues, Identifying and preventing risk factors, Monitoring and reporting current medical conditions, Assisting with ambulation, transfer, and all ADL's, Teaching patients about disease process and medications, Family teaching, Providing safe environment, Bowel and Bladder Issues, Skin integrity, Medication Management Patient needs Real Estate Loan Processor/ Case Management for: Discharge Planning, Arranging Home Equipment or Services, Family Interventions Patient needs Dietary and Nutrition Services for: Adequate Nutrition, Nutritional Supplements, Nutritional Education Goals Patient will remain: free from falls, or injury at time of discharge. Patient will perform bed mobility at: MOD I level of assist. Patient will complete transfers from bed to chair at: MOD I level of assist. Patient will ambulate: 100 feet, with MOD I assist, with LRD Patient will complete upper body dressing at: MOD I level of assist. Patient will complete lower body dressing at: MOD I level of assist. Patient will complete toileting at: MOD I level of assist. Patient will perform bathing at: MOD I level of assist. Patient will complete grooming at: MOD I level of assist. Patient will complete home management skills at: MOD I level of assist. Patient will achieve: 12 stairs, at MOD I assist Patient will have pain level of: of 3 or less Patient's skin will: remain intact, free from infection. Patient will receive: adequate nutrition. Discharge Planning Pt Prognosis for Sig. Practical Improv. w/in Reasonable Time: Good Estimated Length of stay (days): 10 Anticipated D/C Destination: Home with Outpt Therapy Was Preadmission Assessment Accurate?: Yes
[2019-10-19] MEDS: Calcium Carbonate 500 MG Tablet PO (16:28)
[2019-10-19] MEDS: Insulin Lispro 100 UNIT/ML INSULN.PEN SC (16:30)
[2019-10-19 17:21] LABS: Bedside Glucose 151 mg/dL (70-110)
[2019-10-19 19:34] VITALS: BP 88/52; PULSE 111; RESP 16; TEMP 36.4; O2SAT 95
[2019-10-19 20:19] VITALS: BP 101/65; PULSE 99
[2019-10-19] MEDS: oxyCODONE 5 MG Tablet PO (21:30)
[2019-10-19] MEDS: QUEtiapine 100 MG Tablet 400 MG PO (21:30)
[2019-10-19] MEDS: Atorvastatin Calcium 40 MG Tablet PO (21:31)
[2019-10-19 23:11] LABS: Bedside Glucose 105 mg/dL (70-110)
[2019-10-20] VITALS (12 sets, daily range): BP systolic 82–113; BP diastolic 47–67; PULSE 18–117; RESP 18; TEMP 36.3–37.1; O2SAT 95–99
[2019-10-20] MEDS: oxyCODONE 5 MG Tablet PO ×2 (02:26→11:08)
--- NOTE | 2019-10-20 05:47 | NURSING ---
PT VERY GROGGY AND UNABLE TO WAKE PT SUFFICIENTLY TO SIT ON SIDE OF BED. PT SLUMPS OVER WHEN SITTING. PT IS ORIENTED X 3. PT IS RETURNED TO SUPINE POSITION.
[2019-10-20 06:40] LABS: Hematocrit 23.1 % (40-54); Hemoglobin 7.5 g/dL (13.0-16.5); Mean Corp Hgb Conc 32.5 g/dL (32-36); Mean Corpuscular Hgb 35.2 pg (27.0-32.0); Mean Corpuscular Volume 108.5 fL (80-94); Mean Platelet Vol. 11.3 fl (6.2-12.0); POSITIVE MORPHOLOGY YES; Platelet Count 202 K/mm3 (150-450); RBC Distribution Width CV 19.1 % (11.6-14.6); RBC Distribution Width SD 73.3 fl (35.1-43.9); Red Blood Count 2.13 M/mm3 (4.6-6.2); White Blood Count 8.7 K/mm3 (4.4-11.0)
[2019-10-20 07:00] LABS: Bedside Glucose 89 mg/dL (70-110)
[2019-10-20 07:04] LABS: Scan Indicated on CBC? Y/N YES- FLAGS NOTED
[2019-10-20 07:06] LABS: Differential Comment SCANNED
[2019-10-20 07:13] LABS: Anion Gap 3 (5-15); BUN 19 mg/dL (7-18); BUN/Creat Ratio 20.6 RATIO (10-20); Calcium,Total 8.9 mg/dL (8.5-10.1); Chloride 101 mmol/L (98-107); Creatinine, Serum 0.92 mg/dL (0.70-1.30); EST Glomerular Filtration Rate 90 mL/min (>60); Est Glom Filt Rate - Afr Amer 109 mL/min (>60); Estimated Creatinine Clearance 83.82 ml/min; Glucose 100 mg/dL (74-106); Magnesium 1.2 mg/dL (1.6-2.6); Potassium 4.8 mmol/L (3.5-5.1); Sodium Level 136 mmol/L (136-145)
[2019-10-20] MEDS: Enoxaparin 40 MG/0.4 ML Syringe SC (07:26)
[2019-10-20] MEDS: Levothyroxine 75 MCG Tablet PO (07:26)
[2019-10-20] MEDS: Glimepiride 1 MG Tablet PO (09:31)
[2019-10-20] MEDS: Ferrous Sulfate 325 MG Tablet PO (09:31)
[2019-10-20] MEDS: Magnesium Oxide 400 MG Tablet PO ×3 (09:32→18:39)
[2019-10-20] MEDS: Ascorbic Acid 500 MG Tablet PO (09:32)
[2019-10-20] MEDS: Folic Acid 1 MG Tablet PO (09:32)
[2019-10-20] MEDS: Calcium Carbonate 500 MG Tablet PO ×2 (09:32→18:39)
[2019-10-20] MEDS: Citalopram 40 MG TABLET PO (09:32)
[2019-10-20] MEDS: Pantoprazole Sodium 40 MG Tablet PO (09:32)
[2019-10-20] MEDS: Pregabalin 75 MG Capsule 300 MG PO (09:36)
--- NOTE | 2019-10-20 09:40 | PCM.PN.BLA ---
Progress Note Afebile VSS - BP is low and he has orthostatic hypotension. The blood pressure sitting was 82/47 and he was not stood. Heart rate was 117. Maintaining appropriate oxygen saturation on RA Oral intake is poor due to persistent encephalopathy/sedation Discussed with nursing - he is unable to participate in therapy due to oversedation but, they were able to some exercises in the bed Reviewed the PT/OT/ST notes Medication list reviewed. He was awake and appropriate when I visited him in the afternoon but, slept most of the morning and nods off some while I am talking with him. Lungs-coarse crackles throughout-I suspect this is secondary to atelectasis due to poor inspiratory effort due to oversedation Heart-regular, increased resting heart rate, no gallop Mucous membranes are dry Abdomen-soft, nondistended, nontender to palpation, bowel sounds present No rashes, no skin breakdown No focal neurologic deficits Impressions 1. Debility secondary to recent traumatic right hip fracture secondary to syncope/fall. Status post ORIF right hip on 10/09/[address] Steven Shrestha. 2. Severe hypocalcemia resulting in a tonic-clonic seizure at admission. No seizures since admission to the inpatient rehab unit and Keppra has been discontinued. He remains on seizure precautions 3. Persistent hypomagnesemia. Magnesium is 1.2 today. Will increase the mag oxide and give IV magnesium today. Metformin has been discontinued because of the chronic diarrhea. Would like to discharge on a long-acting magnesium preparation to avoid diarrhea secondary to magnesium. 4. Toxic encephalopathy secondary to combined effects of multiple sedating drugs. 5. Stage IV adenocarcinoma of the lung -follows with Dr. Laguerre. He is on Keytruda, Carboplatin and pemetrexed. The Keytruda and the Carboplatin likely both contribute to Hypomagnesemia and hypocalcemia. 6. 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 7. BPD? pt can not confirm this and tells me that he does not know what his diagnosis is. will request records from Dr. Arias. 8. Acute on chronic anemia secondary to chemotherapy and blood loss from surgery. He is symptomatic with hypoxia and low blood pressures. Will transfuse today. 9. Thrombocytopenia-resolved Decrease the Lyrica to 150 mg BID and decrease the Seroquel to 300 mg and give at 2000 nightly. change the oxy IR to 5 mg PO Q 6H PRN for pain 5 or greater. (he has not had to take any Oxy IR since arriving in the rehab unit) DC Amaryl and continue sliding scale insulin coverage Bolus with normal saline 1 L over 1 hour Type and cross for 2 units of packed red blood cells and transfuse 2 units 4 g of intravenous magnesium slowly Increase Mag-Ox to 400 mg p.o. 3 times daily-has had 1 bowel movement since admission to the rehab unit. Recheck BMP, CBC, magnesium in the a.m. Polo will do therapy today but we are going to restrict him to doing therapy in the bed or the chair and not stand him today. Metformin was discontinued yesterday check an EKG today.....he had QT prolongation on the EKG in the ED and he is on Citalopram and high dose Seroquel both of which prolong the QT and so does hypomagnesium putting him at risk for VT/torsades STROKE Vital Signs/Narrative: Vital Signs Temp Pulse Resp BP Pulse Ox 10/20/19 08:56 97.8 F 99 18 87/56 L 95 Inpatient E&M: 75780 Subs Hosp L3
[2019-10-20] MEDS: 0.9% Normal Saline 1,000 ML 999 ML IV (10:51)
[2019-10-20] MEDS: Magnesium Sulfate 4gm/100mL 4 GM/100 ML IV.SOLN. IV (10:52)
[2019-10-20 11:50] LABS: Bedside Glucose 76 mg/dL (70-110)
[2019-10-20 18:00] LABS: Bedside Glucose 106 mg/dL (70-110)
[2019-10-20] MEDS: Pregabalin 75 MG Capsule 150 MG PO (21:37)
[2019-10-20] MEDS: Atorvastatin Calcium 40 MG Tablet PO (21:37)
[2019-10-20] MEDS: QUEtiapine 100 MG Tablet 300 MG PO (21:37)
[2019-10-20 21:51] LABS: Bedside Glucose 91 mg/dL (70-110)
[2019-10-21] MEDS: oxyCODONE 5 MG Tablet PO ×2 (02:19→13:36)
--- NOTE | 2019-10-21 02:35 | NURSING ---
Pt set off bed alarm and found in bed with legs hanging over the side. Staff reeducated pt of safety protocol. Pt c/o pain and provided PRN Oxyir.
--- NOTE | 2019-10-21 04:45 | NURSING ---
Pt set off bed alarm and found getting up to urinate on own. Pt has attends on and staff advised pt to sit so staff can apply slipper socks. Pt states he has to pee now and started walking towards the br. Pt would not wait for staff to apply gait belt or get slipper socks on. Pt used urinal in br and pee spilled on floor. Pt reminded of safety measures for the fourth time tonight but pt states that he doesn't understand why he can't get up on his own. Pt reminded of hip fracture and safety policy to keep pt from having a fall while on RU. Pt made no reply.
[2019-10-21 05:00] VITALS: BP 105/56; BP 114/67; BP 124/81; PULSE 101; PULSE 116; PULSE 99
[2019-10-21 06:14] LABS: Hematocrit 31.2 % (40-54); Hemoglobin 10.2 g/dL (13.0-16.5); Mean Corp Hgb Conc 32.7 g/dL (32-36); Mean Corpuscular Hgb 32.3 pg (27.0-32.0); Mean Corpuscular Volume 98.7 fL (80-94); Mean Platelet Vol. 11.5 fl (6.2-12.0); POSITIVE MORPHOLOGY YES; Platelet Count 230 K/mm3 (150-450); RBC Distribution Width CV 24.1 % (11.6-14.6); Red Blood Count 3.16 M/mm3 (4.6-6.2); White Blood Count 8.5 K/mm3 (4.4-11.0)
[2019-10-21 06:18] LABS: Scan Indicated on CBC? Y/N YES- FLAGS NOTED
[2019-10-21 06:26] LABS: Anion Gap 5 (5-15); BUN 17 mg/dL (7-18); BUN/Creat Ratio 19.7 RATIO (10-20); Chloride 101 mmol/L (98-107); Creatinine, Serum 0.86 mg/dL (0.70-1.30); EST Glomerular Filtration Rate 97 mL/min (>60); Est Glom Filt Rate - Afr Amer 118 mL/min (>60); Estimated Creatinine Clearance 89.67 ml/min; Glucose 81 mg/dL (74-106); Magnesium 1.6 mg/dL (1.6-2.6); Potassium 4.2 mmol/L (3.5-5.1); Sodium Level 139 mmol/L (136-145)
[2019-10-21] MEDS: Enoxaparin 40 MG/0.4 ML Syringe SC (06:30)
[2019-10-21] MEDS: Levothyroxine 75 MCG Tablet PO (06:30)
[2019-10-21 06:50] VITALS: O2SAT 97
[2019-10-21 07:00] VITALS: BP 128/86; PULSE 96; RESP 16; TEMP 36.4; O2SAT 93
[2019-10-21 07:11] LABS: Bedside Glucose 83 mg/dL (70-110)
[2019-10-21] MEDS: Calcium Carbonate 500 MG Tablet PO ×2 (09:14→16:47)
[2019-10-21] MEDS: Magnesium Oxide 400 MG Tablet PO ×3 (09:14→16:47)
[2019-10-21] MEDS: Ferrous Sulfate 325 MG Tablet PO (09:14)
[2019-10-21] MEDS: Ascorbic Acid 500 MG Tablet PO (09:14)
[2019-10-21] MEDS: Folic Acid 1 MG Tablet PO (09:15)
[2019-10-21] MEDS: Pantoprazole Sodium 40 MG Tablet PO (09:15)
[2019-10-21] MEDS: Citalopram 40 MG TABLET PO (09:15)
[2019-10-21] MEDS: Lisinopril 10 MG Tablet PO (09:15)
[2019-10-21] MEDS: Pregabalin 75 MG Capsule 150 MG PO ×2 (09:20→21:44)
[2019-10-21 10:00] VITALS: BP 128/86; PULSE 96; RESP 16; TEMP 36.4; O2SAT 93
--- NOTE | 2019-10-21 11:35 | RAD_ITS ---
STUDY: X-RAY CHEST REASON FOR EXAM: Male, 54 years old. HYPOXEMIA TECHNIQUE: PA and lateral views of the chest. COMPARISON: 10/14/2019. FINDINGS: There is opacity at the left lung apex suggestive of focal pleural thickening, an underlying pleural-based mass or subpleural lesion not entirely excluded. There is underlying scarring in the left upper lobe with cephalad retraction of the left hilum. Mild increased density over the mid lower lung choudhary most likely related to superimposition of soft tissues. Remainder of the lung choudhary are clear. Normal size heart. Normal mediastinum and [place]. Normal visualized pulmonary arteries. Normal visualized aortic arch and descending thoracic aorta. There are diffuse degenerative changes of the visualized thoracic spine. There is degenerative osteoarthritis of the bilateral shoulders. There is no demonstrated abnormality of the visualized soft tissue structures of the upper abdomen. RAD/Chest PA and Lateral IMPRESSION: Pleural thickening versus loculated pleural effusion versus pleural-based mass at the left lung apex. There is suggestion of some degree of scarring of the left upper lobe with questionable retraction of the left hilum cephalad suggestive of subacute to chronic inflammatory response. Clinical correlation recommended. Remainder of the lung choudhary are clear with otherwise no acute interval change. Electronically Signed: Delma Nath MD at 1:01 EDT , Service support ,
--- NOTE | 2019-10-21 12:27 | NURSING ---
Sitting up in chair for lunch. Informed Mr. Givens that Dr. Newell wants him to sit in chair as much as he can during the day. Pt is okay with that.
[2019-10-21] MEDS: Insulin Lispro 100 UNIT/ML INSULN.PEN SC (12:29)
[2019-10-21 12:35] LABS: Bedside Glucose 164 mg/dL (70-110)
--- NOTE | 2019-10-21 14:50 | NURSING ---
pt was laying in bed for approx one hour. now back up in chair. Chair alarm on at this time. Call light in reach.
--- NOTE | 2019-10-21 16:45 | NURSING ---
offered pain medication at this time, denies need. Pt remains sitting up in chair.
[2019-10-21 17:20] LABS: Bedside Glucose 106 mg/dL (70-110)
[2019-10-21 20:00] VITALS: BP 115/72; PULSE 107; RESP 20; TEMP 37.2; O2SAT 93
[2019-10-21] MEDS: QUEtiapine 100 MG Tablet 300 MG PO (20:11)
[2019-10-21] MEDS: Atorvastatin Calcium 40 MG Tablet PO (20:11)
[2019-10-21 22:40] LABS: Bedside Glucose 101 mg/dL (70-110)
[2019-10-22] MEDS: 0.9% Saline Lock 10 ML Syringe IV (06:17)
[2019-10-22] MEDS: Levothyroxine 75 MCG Tablet PO (06:17)
[2019-10-22] MEDS: Enoxaparin 40 MG/0.4 ML Syringe SC (06:17)
[2019-10-22] MEDS: oxyCODONE 5 MG Tablet PO (06:52)
[2019-10-22 07:10] LABS: Bedside Glucose 97 mg/dL (70-110)
[2019-10-22 07:15] VITALS: O2SAT 93
[2019-10-22] MEDS: Lisinopril 10 MG Tablet PO (09:00)
[2019-10-22] MEDS: Ascorbic Acid 500 MG Tablet PO (09:00)
[2019-10-22] MEDS: Magnesium Oxide 400 MG Tablet PO ×3 (09:00→17:17)
[2019-10-22] MEDS: Calcium Carbonate 500 MG Tablet PO ×2 (09:00→17:17)
[2019-10-22] MEDS: Citalopram 40 MG TABLET PO (09:00)
[2019-10-22] MEDS: Pantoprazole Sodium 40 MG Tablet PO (09:00)
[2019-10-22] MEDS: Ferrous Sulfate 325 MG Tablet PO (09:01)
[2019-10-22] MEDS: Folic Acid 1 MG Tablet PO (09:01)
[2019-10-22] MEDS: Pregabalin 75 MG Capsule 150 MG PO ×2 (09:03→21:20)
[2019-10-22 10:00] VITALS: BP 106/66; PULSE 100; RESP 16; TEMP 37; O2SAT 92
[2019-10-22] MEDS: Insulin Lispro 100 UNIT/ML INSULN.PEN SC ×2 (12:12→21:19)
[2019-10-22 12:15] LABS: Bedside Glucose 157 mg/dL (70-110)
[2019-10-22 17:31] LABS: Bedside Glucose 99 mg/dL (70-110)
[2019-10-22 19:45] VITALS: BP 124/69; PULSE 96; RESP 16; TEMP 36.9; O2SAT 93
[2019-10-22] MEDS: Atorvastatin Calcium 40 MG Tablet PO (20:04)
[2019-10-22] MEDS: QUEtiapine 100 MG Tablet 300 MG PO (20:04)
[2019-10-22 21:11] LABS: Bedside Glucose 151 mg/dL (70-110)
[2019-10-23] MEDS: Levothyroxine 75 MCG Tablet PO (05:32)
[2019-10-23] MEDS: Enoxaparin 40 MG/0.4 ML Syringe SC (05:32)
[2019-10-23] MEDS: oxyCODONE 5 MG Tablet PO ×2 (05:35→15:39)
--- NOTE | 2019-10-23 06:55 | NURSING ---
0600 west d/c'd as per hospital protocol, pt tolerated the procedure fair. urine was clear and pale yellow
[2019-10-23 07:05] LABS: Bedside Glucose 100 mg/dL (70-110)
[2019-10-23] MEDS: Ferrous Sulfate 325 MG Tablet PO (07:29)
[2019-10-23] MEDS: Magnesium Oxide 400 MG Tablet PO ×3 (07:30→16:21)
[2019-10-23] MEDS: Ascorbic Acid 500 MG Tablet PO (07:30)
[2019-10-23] MEDS: Calcium Carbonate 500 MG Tablet PO ×2 (07:30→16:21)
[2019-10-23] MEDS: Folic Acid 1 MG Tablet PO (07:30)
[2019-10-23] MEDS: Pantoprazole Sodium 40 MG Tablet PO (07:31)
[2019-10-23] MEDS: Lisinopril 10 MG Tablet PO (07:31)
[2019-10-23] MEDS: Citalopram 40 MG TABLET PO (07:31)
[2019-10-23 07:43] VITALS: O2SAT 93
[2019-10-23] MEDS: Pregabalin 75 MG Capsule 150 MG PO ×2 (08:24→21:07)
[2019-10-23 08:56] VITALS: BP 94/60; PULSE 98; RESP 16; TEMP 36.7; O2SAT 90
--- NOTE | 2019-10-23 10:48 | PN_ITS ---
Progress Note Polo was seen on team rounds today. His mother Heather participated in a telephone call. Afebile VSS - BP is on the low side today urine output>>input Maintaining appropriate oxygen saturation on RA - 90-93% today Oral intake is is improving but, he is diuresing to excess........post obstructive diuresis? [] Discussed with nursing - no problems that need addressed Reviewed the PT/OT/ST notes Medication list reviewed. Averaging 1-2 Oxy IR a day. Blood sugar record was reviewed. Blood sugars are in good control. I received records from the counselling center and his diagnosis is recurrent episodes of major depression with psychotic features at times. Currently resolved and continuing on Seroquel and citalopram. He also has anxiety but has failed BuSpar and quit Vistaril secondary to dry mouth and eyes. He smokes cannabis and drinks alcohol to control his anxiety. He is not willing to discontinue alcohol use. Per the counseling center records he drinks 424 ounce cans of beer daily. He told me 6 cans. He is much more alert today. He is better able to participate in therapy. He was appropriate this morning with his mom on the phone. He had no complaints to me. He is now on RA again and off oxygen. He slept well last night. Lungs-mostly clear to auscultation, not tachypneic at rest, no conversational dyspnea, no accessory muscle use. No wheezing. Chest x-ray last week showed no infiltrates. Heart-regular with increased resting heart rate. Abdomen-soft, nondistended, nontender, normal bowel sounds, no guarding with palpation No calf tenderness No rashes, no skin breakdown, the incision on the right hip is coapted well with no purulent discharge and no arthur-incisional erythema or increased warmth. He tells me he has not been taking the OxyIR because he does not want people to think that he is a drug addict. He has had a problem with substance abuse in the past. He is averaging 1-2 OxyIR a day only. Denies any recent peptic ulcer disease and also denies nausea/vomiting/abdominal pain. Impressions 1. Debility secondary to recent traumatic right hip fracture secondary to syncope/fall. Status post ORIF right hip on 10/09/[address] Steven Shrestha. I wonder if the episodes he is having at home are related to arrhythmia due to profound hypo-magnesium and/or oversedation due to multiple sedating medications combined with cannabis and alcohol use. He has not been willing to stop alcohol abuse in the past. 2. Severe hypocalcemia resulting in a tonic-clonic seizure at admission. No seizures since admission to the inpatient rehab unit and Keppra has been discontinued. He remains on seizure precautions. Hypocalcemia has resolved. 3. Persistent hypomagnesemia. Metformin has been discontinued because of the chronic diarrhea. Would like to discharge on a long-acting magnesium preparation to avoid diarrhea secondary to magnesium supplementation. Recheck magnesium and BMP in the a.m. 4. Toxic encephalopathy secondary to combined effects of multiple sedating drugs. Much more alert with a reduced dose of Lyrica and Seroquel and discontinuation of trazodone. 5. Stage IV adenocarcinoma of the lung -follows with Dr. Laguerre. He is on Keytruda, Carboplatin and pemetrexed. The Keytruda and the Carboplatin likely both contribute to Hypomagnesemia and hypocalcemia. 6. 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 7. Recurrent major depression with episodes of psychotic features. Currently stable on Seroquel and citalopram. He self medicates his anxiety with alcohol and cannabis. Has failed therapy with Vistaril and BuSpar in the past. 8. Acute on chronic anemia secondary to chemotherapy and blood loss from surgery. He had 2 units of blood last Wednesday and the HGB increased from 7.5 on 417 2210.214 1820. Platelets and white blood cell count were within normal limits. 9. Thrombocytopenia-resolved 10.. Prolonged QT interval. EKG today shows significant improvement in the QT interval with correction of hypocalcemia and improvement in the hypomagnesemia. Seroquel prolongs the QT interval so it is important to keep the Calcium and the magnesium WNL BMP and MAg in the AM Check PVR's when the Meza is removed Change the diet to carb controlled Encourage increased fluid intake It is not likely that We will be able to convince him to stop ETOH, alcohol or cannabis. ? whether depression is adequately controlled with Citalopram? His children are in [place] and he can not afford to move there. He is from their mother. STROKE Vital Signs/Narrative: Vital Signs Temp Pulse Resp BP Pulse Ox 10/23/19 08:56 98.0 F 98 16 94/60 90 10/23/19 07:43 93 Inpatient E&M: 59358 Subs Hosp L2
--- NOTE | 2019-10-23 11:26 | RAD_ITS ---
STUDY: X-RAY - PELVIS AND RIGHT HIP REASON FOR EXAM: Male, 54 years old. FOLLOW UP POST OP TECHNIQUE: 3 views of the pelvis and hip. COMPARISON: Comparison is made with prior study dated October 12, 2019. FINDINGS: There is a non-specific bowel gas pattern. Normal visualized soft tissue structures. Normal bilateral iliac wings, sacroiliac joints and visualized sacrum. Normal bilateral superior and inferior pubic rami. Normal pubic symphysis. Normal bilateral ischial tuberosities. The patient is status post right total hip replacement. There is good alignment. RAD/Hip Min 2 Views (Portable) IMPRESSION: Status post right total hip replacement. There is good alignment. Electronically Signed: Baljinder Olivo, at 15:24 EDT , Service support ,
--- NOTE | 2019-10-23 11:34 | CASEMGMT ---
Social Work IDT met with patient and mother via conference call. Discussed patient's progress in therapy. Pt is CGA to min assist for bed mobility, SBA for transfers, walking 80-100 ft with FWW at CGA, completed 3 steps 2 HR min assist. Pt is following hip precautions with less cues. Pt is CGA for tub transfers, min for LE bathing using adaptive equipment, SBA for toileting. ST working with memory, recall and attention. Pt to be started on antidepressant for mood. Physician discontinued pt's regular pain medications that made pt drowsy. Pt is more alert and sleeping well. Explained insurance coverage with [employer] 10/23 and continued stay is not guaranteed. Will ReTeam net week. Will continue to follow. Abby Montoya MSW INHALATION THERAPIST
[2019-10-23 11:46] LABS: Bedside Glucose 76 mg/dL (70-110)
[2019-10-23] MEDS: Tamsulosin HCl 0.4 MG Capsule PO (11:49)
[2019-10-23] MEDS: Meloxicam 7.5 MG Tablet PO ×2 (11:49→21:08)
--- NOTE | 2019-10-23 13:40 | NURSING ---
spoke with Yvrose at Dr Steven astudillo office. OK to hola calncy on 10/24. need hip xray and the will do a phone appt with pt on 10/24 @ [address]463. [address] Newell aware.
[2019-10-23 17:56] LABS: Bedside Glucose 114 mg/dL (70-110)
[2019-10-23] MEDS: QUEtiapine 100 MG Tablet 300 MG PO (20:27)
[2019-10-23] MEDS: Atorvastatin Calcium 40 MG Tablet PO (20:28)
[2019-10-23 21:00] VITALS: PULSE 102; RESP 18; O2SAT 96
[2019-10-23 21:26] LABS: Bedside Glucose 131 mg/dL (70-110)
[2019-10-23 22:00] VITALS: BP 118/59; PULSE 102; RESP 18; TEMP 36.4; O2SAT 96
--- NOTE | 2019-10-24 03:59 | NURSING ---
Reviewed and agree with SENIOR FRONT END ENGINEER documentation.
[2019-10-24] MEDS: oxyCODONE 5 MG Tablet PO ×3 (05:13→17:53)
[2019-10-24] MEDS: Levothyroxine 75 MCG Tablet PO (05:14)
[2019-10-24] MEDS: Enoxaparin 40 MG/0.4 ML Syringe SC (05:14)
[2019-10-24] MEDS: 0.9% Saline Lock 10 ML Syringe IV (05:15)
[2019-10-24 06:26] LABS: Bedside Glucose 105 mg/dL (70-110)
[2019-10-24 07:12] LABS: Hematocrit 31.9 % (40-54); Hemoglobin 10.3 g/dL (13.0-16.5); Mean Corp Hgb Conc 32.3 g/dL (32-36); Mean Corpuscular Hgb 32.9 pg (27.0-32.0); Mean Corpuscular Volume 101.9 fL (80-94); Mean Platelet Vol. 10.9 fl (6.2-12.0); POSITIVE MORPHOLOGY YES; Platelet Count 304 K/mm3 (150-450); RBC Distribution Width SD 75.8 fl (35.1-43.9); Red Blood Count 3.13 M/mm3 (4.6-6.2); White Blood Count 7.8 K/mm3 (4.4-11.0)
[2019-10-24 07:15] LABS: Scan Indicated on CBC? Y/N YES- FLAGS NOTED
[2019-10-24 07:35] LABS: Anion Gap 6 (5-15); BUN 24 mg/dL (7-18); BUN/Creat Ratio 26.3 RATIO (10-20); Calcium,Total 9.1 mg/dL (8.5-10.1); Chloride 104 mmol/L (98-107); Creatinine, Serum 0.91 mg/dL (0.70-1.30); EST Glomerular Filtration Rate 91 mL/min (>60); Est Glom Filt Rate - Afr Amer 110 mL/min (>60); Estimated Creatinine Clearance 84.74 ml/min; Glucose 101 mg/dL (74-106); Magnesium 1.3 mg/dL (1.6-2.6); Potassium 4.3 mmol/L (3.5-5.1); Sodium Level 138 mmol/L (136-145)
[2019-10-24 07:44] LABS: Differential Comment SCANNED
[2019-10-24] MEDS: Ferrous Sulfate 325 MG Tablet PO (07:44)
[2019-10-24] MEDS: Folic Acid 1 MG Tablet PO (07:44)
[2019-10-24] MEDS: Magnesium Oxide 400 MG Tablet PO ×3 (07:45→16:51)
[2019-10-24] MEDS: Citalopram 40 MG TABLET PO (07:45)
[2019-10-24] MEDS: Calcium Carbonate 500 MG Tablet PO ×2 (07:45→16:51)
[2019-10-24] MEDS: Meloxicam 7.5 MG Tablet PO ×2 (07:45→21:33)
[2019-10-24] MEDS: Ascorbic Acid 500 MG Tablet PO (07:45)
[2019-10-24] MEDS: Pantoprazole Sodium 40 MG Tablet PO (07:46)
[2019-10-24] MEDS: Pregabalin 75 MG Capsule 150 MG PO ×2 (07:48→21:33)
[2019-10-24] MEDS: Lisinopril 5 MG Tablet PO (08:52)
[2019-10-24 09:10] VITALS: BP 108/63; PULSE 100; RESP 17; TEMP 36.5; O2SAT 92
[2019-10-24 11:51] LABS: Bedside Glucose 91 mg/dL (70-110)
--- NOTE | 2019-10-24 14:26 | CASEMGMT ---
Social Work Spoke with patient's Direction Home Greeting Card Writer Yoselyn Hendersno. C.M. states pt receives 7 meals per week and 2 hrs/day, M-T- of aides. O2 is new for pt and is a heavy smoker. Pt is tolerating nicotine patch well. Explained insurance update 10/23. Will continue to follow. DELMIS Castorena PRIVATE EQUITY ANALYST
[2019-10-24 16:25] LABS: Bedside Glucose 88 mg/dL (70-110)
[2019-10-24] MEDS: Tamsulosin HCl 0.4 MG Capsule PO (16:51)
[2019-10-24 19:50] VITALS: BP 106/68; PULSE 90; RESP 16; TEMP 36.8; O2SAT 96
[2019-10-24] MEDS: QUEtiapine 100 MG Tablet 300 MG PO (20:17)
[2019-10-24] MEDS: Atorvastatin Calcium 40 MG Tablet PO (21:32)
[2019-10-24 21:35] LABS: Bedside Glucose 118 mg/dL (70-110)
[2019-10-25] MEDS: Levothyroxine 75 MCG Tablet PO (06:20)
[2019-10-25] MEDS: Enoxaparin 40 MG/0.4 ML Syringe SC (06:20)
[2019-10-25 06:55] LABS: Bedside Glucose 94 mg/dL (70-110)
[2019-10-25] MEDS: Ferrous Sulfate 325 MG Tablet PO (07:37)
[2019-10-25] MEDS: Ascorbic Acid 500 MG Tablet PO (07:37)
[2019-10-25] MEDS: Calcium Carbonate 500 MG Tablet PO ×2 (07:37→15:57)
[2019-10-25] MEDS: Citalopram 40 MG TABLET PO (07:37)
[2019-10-25] MEDS: Folic Acid 1 MG Tablet PO (07:37)
[2019-10-25] MEDS: Magnesium Oxide 400 MG Tablet PO ×3 (07:37→15:57)
[2019-10-25] MEDS: Meloxicam 7.5 MG Tablet PO ×2 (07:38→22:45)
[2019-10-25] MEDS: Lisinopril 5 MG Tablet PO (07:38)
[2019-10-25] MEDS: Pantoprazole Sodium 40 MG Tablet PO (07:38)
[2019-10-25] MEDS: oxyCODONE 5 MG Tablet PO ×2 (07:42→15:57)
--- NOTE | 2019-10-25 08:33 | NURSING ---
18 julieth removed to Rt hip surgical site without pain or discomfort noted or reported. Incision site remains free of redness, drainage, and swelling. Well approx.
[2019-10-25] MEDS: Pregabalin 75 MG Capsule 150 MG PO ×2 (08:58→22:45)
[2019-10-25 09:28] VITALS: BP 103/62; PULSE 103; RESP 16; TEMP 36.3; O2SAT 96
[2019-10-25 11:21] LABS: Bedside Glucose 91 mg/dL (70-110)
[2019-10-25] MEDS: Acetaminophen 500 MG Tablet 1000 MG PO ×2 (13:03→22:43)
--- NOTE | 2019-10-25 15:46 | CASEMGMT ---
Social Work Insurance approved pt with [employer] 10/[address] in [address] Spoke with pt and he is agreeable and feels comfortable with DC end of next week. Will discuss details in Team 10/29. Will continue to follow. Abby Montoya MSW SPARES SCHEDULER
[2019-10-25] MEDS: Tamsulosin HCl 0.4 MG Capsule PO (15:57)
[2019-10-25 16:46] LABS: Bedside Glucose 96 mg/dL (70-110)
[2019-10-25 22:00] VITALS: BP 128/69; PULSE 84; RESP 18; TEMP 36.7; O2SAT 96
[2019-10-25] MEDS: Atorvastatin Calcium 40 MG Tablet PO (22:41)
[2019-10-25] MEDS: QUEtiapine 100 MG Tablet 300 MG PO (22:41)
[2019-10-25 23:01] LABS: Bedside Glucose 85 mg/dL (70-110)
[2019-10-26] MEDS: Levothyroxine 75 MCG Tablet PO (05:24)
[2019-10-26] MEDS: Acetaminophen 500 MG Tablet 1000 MG PO ×3 (05:24→19:44)
[2019-10-26] MEDS: Enoxaparin 40 MG/0.4 ML Syringe SC (05:24)
[2019-10-26 07:11] LABS: Bedside Glucose 92 mg/dL (70-110)
[2019-10-26 09:31] VITALS: BP 105/68; PULSE 92; RESP 18; TEMP 36.6; O2SAT 96
[2019-10-26] MEDS: Ferrous Sulfate 325 MG Tablet PO (10:08)
[2019-10-26] MEDS: Folic Acid 1 MG Tablet PO (10:08)
[2019-10-26] MEDS: Ascorbic Acid 500 MG Tablet PO (10:09)
[2019-10-26] MEDS: Calcium Carbonate 500 MG Tablet PO ×2 (10:09→17:30)
[2019-10-26] MEDS: Citalopram 40 MG TABLET PO (10:09)
[2019-10-26] MEDS: Magnesium Oxide 400 MG Tablet PO ×3 (10:09→17:30)
[2019-10-26] MEDS: Meloxicam 7.5 MG Tablet PO ×2 (10:10→19:45)
[2019-10-26] MEDS: Pantoprazole Sodium 40 MG Tablet PO (10:10)
[2019-10-26] MEDS: Lisinopril 5 MG Tablet PO (10:10)
[2019-10-26] MEDS: Pregabalin 75 MG Capsule 150 MG PO ×2 (10:16→22:11)
[2019-10-26 12:01] LABS: Bedside Glucose 77 mg/dL (70-110)
--- NOTE | 2019-10-26 14:23 | CASEMGMT ---
Social Work Spoke with patient about insurance issuing DC date 10/30. Pt agreeable. Provided list of [facility] agencies. Pt requested [facility]. Referral made for PT/OT/SN. Pt requested shower chair. Explained referral to be sent to [facility] but pt has to pick it up - pt understands. Referral made to [facility] and [facility]. Will Team 10/29. Plan: DC home alone 10/30 with [facility] PT/OT/SN. [facility] - shower chair DELMIS CastorenaW
[2019-10-26] MEDS: oxyCODONE 5 MG Tablet PO (15:32)
--- NOTE | 2019-10-26 16:41 | CASEMGMT ---
Social Work Spoke with patient about Palliative Medicine. Explained services of symptom, disease and pain management. Pt can continue with cancer tx and the goal is to remain in the home. Pt agreeable to referral. Referral made to [facility]. Screening Tool faxed. DELMIS CastorenaW
[2019-10-26] MEDS: Tamsulosin HCl 0.4 MG Capsule PO (17:30)
[2019-10-26 18:00] LABS: Bedside Glucose 82 mg/dL (70-110)
--- NOTE | 2019-10-26 18:10 | PCM.PN.BLA ---
Progress Note Afebile VSS Maintaining appropriate oxygen saturation on RA Oral intake is good Discussed with nursing - no problems that need addressed Reviewed the PT/OT notes Medication list reviewed. Pain is adequately controlled. Denies shortness of breath, chest pain, nausea, vomiting, abdominal pain, dysuria, sore throat, insomnia. No diarrhea since the metformin was discontinued. BS's are under excellent control with diet only. Alert, oriented x3, pleasant, no apparent distress Lungs-clear to auscultation after a few deep breaths, not tachypneic, no conversational dyspnea Heart-regular rate and rhythm Abdomen-soft, nontender, nondistended, bowel sounds present, no guarding with palpation No peripheral edema, no calf tenderness No rashes, no breakdown Right hip incision is well coapted when the julieth have been removed. There is no dehiscence. No arthur-incisional erythema and there is no discharge from the wound. Impressions 1. Status post traumatic right hip fracture due to a fall 2. Status post right cemented hemiarthroplasty by Dr. Steven Shrestha 3. Diabetes mellitus type 2-diet controlled at the present time 4. Toxic encephalopathy-resolved with discontinuation of Keppra and decrease in Seroquel, Lyrica doses. Trazodone also discontinued and benzodiazepines. Pain is adequately controlled with 1 OxyIR every 6 hours as needed for pain 5. Seizure at admission to the hospital more likely than not due to severe hypocalcemia with a calcium less than 5. Keppra was discontinued at admission to the rehab unit and he has not had any seizures while in rehab. 6. Hypocalcemia-resolved 7. Hypomagnesemia-currently on a supplement H&H, BMP, magnesium in the a.m. Continue therapy Inpatient E&M: [id number] [facility] Hosp L2
[2019-10-26 19:30] VITALS: BP 119/78; PULSE 93; RESP 18; TEMP 36.7; O2SAT 95
[2019-10-26] MEDS: Atorvastatin Calcium 40 MG Tablet PO (19:44)
[2019-10-26] MEDS: QUEtiapine 100 MG Tablet 300 MG PO (19:45)
[2019-10-26 22:20] LABS: Bedside Glucose 81 mg/dL (70-110)
[2019-10-27] MEDS: Acetaminophen 500 MG Tablet 1000 MG PO ×3 (05:16→22:21)
[2019-10-27] MEDS: Levothyroxine 75 MCG Tablet PO (05:16)
[2019-10-27] MEDS: Enoxaparin 40 MG/0.4 ML Syringe SC (05:17)
[2019-10-27 07:05] LABS: Bedside Glucose 95 mg/dL (70-110)
[2019-10-27] MEDS: Folic Acid 1 MG Tablet PO (08:11)
[2019-10-27] MEDS: Ferrous Sulfate 325 MG Tablet PO (08:11)
[2019-10-27] MEDS: Pregabalin 75 MG Capsule 150 MG PO ×2 (08:11→22:24)
[2019-10-27] MEDS: Ascorbic Acid 500 MG Tablet PO (08:12)
[2019-10-27] MEDS: Meloxicam 7.5 MG Tablet PO ×2 (08:12→22:20)
[2019-10-27] MEDS: Magnesium Oxide 400 MG Tablet PO ×3 (08:12→17:28)
[2019-10-27] MEDS: Calcium Carbonate 500 MG Tablet PO ×2 (08:12→17:28)
[2019-10-27] MEDS: Pantoprazole Sodium 40 MG Tablet PO (08:12)
[2019-10-27] MEDS: Citalopram 40 MG TABLET PO (08:12)
[2019-10-27] MEDS: Lisinopril 5 MG Tablet PO (08:14)
[2019-10-27 08:19] VITALS: BP 102/56; PULSE 99; RESP 16; TEMP 37.2; O2SAT 93
--- NOTE | 2019-10-27 10:41 | PCM.PN.BLA ---
Progress Note Afebile VSS Maintaining appropriate oxygen saturation on RA Oral intake is good Discussed with nursing - I was told he has a blister on his L great toe. Reviewed the PT/OT/ST notes Medication list reviewed. Blood sugar record was reviewed. His blood sugars are normal on no medication but on a carb controlled cardiac diet. He tells me that he slept well last night. He had increased pain yesterday after he got off the nu step and heard a pop in his knee. Today the pain is better and he is ambulating well. He denies SOB, CP, cough, N/V. Appetite and intake are good. alert, oriented X 3, NAD, resting in bed when I saw him. Lungs - CTA MMM Heart RRR, increased resting HR but no ectopy and he denies palpitations. no ankle edema and no calf tenderness no rashes the incision R hip is well coapted and looks like it is healing well. No openings in the skin and no arthur-incisional erythema. No increased warmth to touch in the area. There is a reddened area at the tip on the left great toe. no blister and no opening in the skin. Not tender to palpation. Impressions 1. Debility secondary to recent right hip fracture 2. Status post ORIF of the right hip-the incision is healing very well. 3. Diabetes mellitus type 2-diet controlled at present 4. seizure at admission to the acute hospital setting......due to severe hypocalcemia. Keppra was causing oversedation and it was discontinued because the MRI and the EEG were negative. He has not had in seizures since admission to the [facility] 5. Hypomagnesemia - suspect due to the chemo he takes. We are still waiting on the 24 hour urine mag. 6. Hypocalcemia - has been stable on supplement + vitamin D check a BMP, mag and phos now. Continue to monitor the reddened area on the tip of the L great toe......it looks as though it may be due to pressure from a slipper or show or end of the bed. Continue therapy. Will discharge on the decreased doses of Seroquel and Lyrica Pain control is adequate at present STROKE Vital Signs/Narrative: Vital Signs Temp Pulse Resp BP Pulse Ox 10/27/19 08:19 98.9 F 99 16 102/56 L 93 Inpatient E&M: [id number] Subs Hosp L2
[2019-10-27 11:36] LABS: Anion Gap 5 (5-15); BUN 27 mg/dL (7-18); BUN/Creat Ratio 23.9 RATIO (10-20); Calcium,Total 9.6 mg/dL (8.5-10.1); Chloride 105 mmol/L (98-107); Creatinine, Serum 1.13 mg/dL (0.70-1.30); EST Glomerular Filtration Rate 71 mL/min (>60); Est Glom Filt Rate - Afr Amer 86 mL/min (>60); Estimated Creatinine Clearance 68.24 ml/min; Glucose 85 mg/dL (74-106); Magnesium 1.4 mg/dL (1.6-2.6); Phosphorus 3.9 mg/dL (2.5-4.9); Potassium 5.3 mmol/L (3.5-5.1); Sodium Level 138 mmol/L (136-145)
[2019-10-27 11:40] LABS: Hematocrit 32.8 % (40-54); Hemoglobin 10.3 g/dL (13.0-16.5)
[2019-10-27 12:00] LABS: Bedside Glucose 114 mg/dL (70-110)
[2019-10-27 17:16] LABS: Bedside Glucose 84 mg/dL (70-110)
[2019-10-27] MEDS: Tamsulosin HCl 0.4 MG Capsule PO (17:28)
[2019-10-27 22:00] VITALS: BP 116/64; PULSE 84; RESP 16; TEMP 36.7; O2SAT 95
[2019-10-27] MEDS: Atorvastatin Calcium 40 MG Tablet PO (22:20)
[2019-10-27] MEDS: QUEtiapine 100 MG Tablet 300 MG PO (22:21)
[2019-10-27 23:05] LABS: Bedside Glucose 78 mg/dL (70-110)
[2019-10-28] MEDS: Acetaminophen 500 MG Tablet 1000 MG PO ×3 (06:03→21:39)
[2019-10-28] MEDS: Levothyroxine 75 MCG Tablet PO (06:03)
[2019-10-28] MEDS: Enoxaparin 40 MG/0.4 ML Syringe SC (06:06)
[2019-10-28 07:11] LABS: Bedside Glucose 92 mg/dL (70-110)
[2019-10-28] MEDS: Ferrous Sulfate 325 MG Tablet PO (07:54)
[2019-10-28] MEDS: Folic Acid 1 MG Tablet PO (07:55)
[2019-10-28] MEDS: Calcium Carbonate 500 MG Tablet PO ×2 (07:56→16:24)
[2019-10-28] MEDS: Magnesium Oxide 400 MG Tablet PO ×3 (07:56→16:24)
[2019-10-28] MEDS: Ascorbic Acid 500 MG Tablet PO (07:56)
[2019-10-28] MEDS: Meloxicam 7.5 MG Tablet PO ×2 (07:57→21:39)
[2019-10-28] MEDS: Citalopram 40 MG TABLET PO (07:57)
[2019-10-28] MEDS: Pantoprazole Sodium 40 MG Tablet PO (07:58)
[2019-10-28] MEDS: Lisinopril 5 MG Tablet PO (07:58)
[2019-10-28] MEDS: Pregabalin 75 MG Capsule 150 MG PO ×2 (07:59→22:36)
[2019-10-28 08:40] VITALS: BP 100/58; PULSE 90; RESP 16; TEMP 36.6; O2SAT 92
[2019-10-28 11:50] LABS: Bedside Glucose 119 mg/dL (70-110)
[2019-10-28] MEDS: Tamsulosin HCl 0.4 MG Capsule PO (16:24)
[2019-10-28 17:40] LABS: Bedside Glucose 73 mg/dL (70-110)
[2019-10-28 19:00] VITALS: BP 142/78; PULSE 71; RESP 17; TEMP 36.6; O2SAT 98
[2019-10-28] MEDS: QUEtiapine 100 MG Tablet 300 MG PO (19:59)
[2019-10-28] MEDS: oxyCODONE 5 MG Tablet PO (20:05)
[2019-10-28] MEDS: Atorvastatin Calcium 40 MG Tablet PO (21:39)
[2019-10-28 22:00] VITALS: PULSE 70; RESP 15; O2SAT 98
[2019-10-28 22:25] LABS: Bedside Glucose 99 mg/dL (70-110)
[2019-10-29] MEDS: Enoxaparin 40 MG/0.4 ML Syringe SC (05:33)
[2019-10-29] MEDS: Acetaminophen 500 MG Tablet 1000 MG PO ×3 (05:33→20:05)
[2019-10-29] MEDS: Levothyroxine 75 MCG Tablet PO (05:33)
[2019-10-29 06:56] LABS: Bedside Glucose 89 mg/dL (70-110)
[2019-10-29] MEDS: Citalopram 40 MG TABLET PO (07:40)
[2019-10-29] MEDS: Ascorbic Acid 500 MG Tablet PO (07:40)
[2019-10-29] MEDS: Magnesium Oxide 400 MG Tablet PO ×3 (07:40→17:10)
[2019-10-29] MEDS: Pantoprazole Sodium 40 MG Tablet PO (07:40)
[2019-10-29] MEDS: Lisinopril 5 MG Tablet PO (07:40)
[2019-10-29] MEDS: Meloxicam 7.5 MG Tablet PO ×2 (07:40→20:05)
[2019-10-29] MEDS: Ferrous Sulfate 325 MG Tablet PO (07:41)
[2019-10-29] MEDS: Calcium Carbonate 500 MG Tablet PO ×2 (07:41→17:10)
[2019-10-29] MEDS: Folic Acid 1 MG Tablet PO (07:41)
[2019-10-29] MEDS: Pregabalin 75 MG Capsule 150 MG PO ×2 (08:53→20:04)
[2019-10-29 10:00] VITALS: BP 98/60; PULSE 100; RESP 18; TEMP 36.4; O2SAT 96
[2019-10-29] MEDS: Tamsulosin HCl 0.4 MG Capsule PO (17:10)
[2019-10-29 19:30] VITALS: PULSE 90; RESP 16; O2SAT 96
[2019-10-29] MEDS: QUEtiapine 100 MG Tablet 300 MG PO (20:04)
[2019-10-29] MEDS: Atorvastatin Calcium 40 MG Tablet PO (20:04)
[2019-10-29 22:00] VITALS: BP 128/77; PULSE 90; RESP 16; TEMP 36.7; O2SAT 96
[2019-10-30] MEDS: Levothyroxine 75 MCG Tablet PO (06:44)
[2019-10-30] MEDS: Enoxaparin 40 MG/0.4 ML Syringe SC (06:44)
[2019-10-30] MEDS: Acetaminophen 500 MG Tablet 1000 MG PO ×2 (06:44→20:35)
[2019-10-30] MEDS: Ferrous Sulfate 325 MG Tablet PO (07:47)
[2019-10-30] MEDS: Pregabalin 75 MG Capsule 150 MG PO ×2 (07:47→20:35)
[2019-10-30] MEDS: Folic Acid 1 MG Tablet PO (07:48)
[2019-10-30] MEDS: Ascorbic Acid 500 MG Tablet PO (07:48)
[2019-10-30] MEDS: Calcium Carbonate 500 MG Tablet PO ×2 (07:48→16:44)
[2019-10-30] MEDS: Meloxicam 7.5 MG Tablet PO ×2 (07:48→20:36)
[2019-10-30] MEDS: Magnesium Oxide 400 MG Tablet PO ×3 (07:48→16:44)
[2019-10-30] MEDS: Citalopram 40 MG TABLET PO (07:48)
[2019-10-30] MEDS: Lisinopril 5 MG Tablet PO (07:49)
[2019-10-30] MEDS: Pantoprazole Sodium 40 MG Tablet PO (07:49)
[2019-10-30 10:00] VITALS: BP 120/72; PULSE 95; RESP 16; TEMP 36.4; O2SAT 93
--- NOTE | 2019-10-30 10:05 | CASEMGMT ---
Social Work IDT met with patient and mother via conference call for Team Meeting. Discussed patient's progress in therapy. Pt is mod I in room and for all ADLS, ambulating 650 ft with FWW. Pt follows hip precautions and will DC with hip kit. ST explained pain meds and chemo had an affect on memory, attention and cognition. Physician explained adjusting pain medication - pt is currently stable, but to follow new regimen and there are side effects when drinking alcohol. Pt understands. Pt to DC home alone 10/30 with [facility] PT/OT/SN and shower chair from [employer] [place]. Abby Montoya, SPLIT LEATHER MOSSER BACTERIOLOGIST INDUSTRIAL
--- NOTE | 2019-10-30 15:20 | PCM.DC ---
- Discharge Diagnoses Current Active Problems: Current Active and Chronic Problems Closed right hip fracture (Acute) New onset seizure (Acute) likely due to profound hypocalcemia (< 5) EEG and MRI normal Hypocalcemia (Acute) Tobacco dependence (Acute) Bipolar disorder (Chronic) Encephalopathy acute (Acute) suspect due to addition of high dose Keppra in a pt already on multiple sedating drugs Hypertension (Chronic) Peripheral neuropathy (Acute) due to compression of the left brachial plexus by pancoast tumor left apes due to adenocarcinoma Hypothyroidism (Chronic) Diabetes mellitus type 2 in nonobese (Chronic) Chronic narcotic use (Chronic) GERD (gastroesophageal reflux disease) (Chronic) with a hx of Breen's esophagus Hypomagnesemia (Acute) Thrombocytopenia (Chronic) History of hemiarthroplasty of right hip (Acute) 10/09/[address] Steven Shrestha Chronic diarrhea (Chronic) Vitamin D deficiency (Acute) Adenocarcinoma of left lung (Chronic) with a metastatic lesion in the RUL Alcohol abuse (Chronic) Barretts esophagus (Chronic) Chronic hepatitis C (Chronic) History of illicit drug use (Acute) Iron deficiency anemia (Acute) Cannabis use, uncomplicated (Chronic) admits to 1 joint a day You will use the following diet at home:: Calorie/Carbohydrate Controlled (specify 1200, 1400, etc), Cardiac - carbohydrate controlled, low salt and low fat. BEER HAS A LOT OF CARBOHYDRATES IN IT. Right now your blood sugar is well controlled on diet alone and you are not taking ANY medication for diabetes. If you start drinking beer again you are going to have to go on medication for diabetes again. Your food should be the consistency of: Regular Your liquids should be the consistency of: Regular/Thin Discharge Activity: May Not Drive, May Shower - use the shower chair, - - No bending at the waist more than 30 degrees, do NOT cross the right leg over the left leg and no twisting. These restrictions are for the next 3 months. Weight Bearing Status: Full weight bearing Keep extremity elevated above heart level: Right Leg Call your doctor if your incision/area has: Continuous Slow Oozing, Sudden Increased Bleeding, Increased Pain/ Swelling, Increased Redness, Foul Smelling Discharge, Swelling at the incision site Call your doctor if you observe: Fever of 101 or Higher, Numbness or Tingling, Inability to urinate, Inability to have a bowel movement, Shortness of breath, Dizziness, Fainting spells, Swelling in the ankles, Chest pain, Increased palpitations (irregular heartbeat), Calf discomfort, Uncontrolled pain Additional Instructions: 1. Do not forget to follow the hip precautions for the next 3 months. If you bend, twist or cross the Right leg over the left you may dislocate the hip. 2. When you came to us in the rehab unit you were nearly comatose and you were not able to do therapy. You were nearly comatose because you take MANY sedating medications AND you drink beer which POTENTIATES the sedating effects of the medication. I suspect this is why you fall at home. We decreased the dose of several of the sedating medications and you are not drinking and so you have become very alert and able to do PT. I DO NOT think it is a good idea for you to start drinking again but, if you do want to have some beer try and limit it to 1-2 12 oz beers a day. I am OK with the cannabis IF the pain at night is not tolerable or you are agitated. I am not OK with Valium so this has been discontinued. 3. Beer has a ton of carbohydrates in it. We were able to discontinue the Metformin, which was causing a lot of diarrhea, because you are following a carbohydrate restricted diet and not drinking. If you start drinking beer again the blood sugars will increase again and you will need to be started on medication for diabetes again. Don't drink [place]. I would avoid taking Metformin if you need to go back on medication to keep the Blood sugar controlled......it causes diarrhea and this wastes magnesium. Possibly your doctor could consider some other oral agent. 4. You had a seizure when you came into the hospital because the calcium was very very low in your blood. I took you off the seizure medication and you have not had any seizures while in rehab since you are on a calcium supplement. You are now on a calcium supplement and Vitamin D.....Vitamin D is necessary to absorb calcium from the gastrointestinal tract. The Magneisum was also very low at admision. Your chemotherapy drugs decrease both magnesium and calcium and so you will need to stay on both magnesium and calcium supplements as long as you are on chemotherapy. 5. Good luck to you [place]. I hope you are able to stay away from the beer and the cigarettes. If your intent is to live as long as possible and have good quality of life then you need to make some changes in lifestyle. You have cancer AND you are on chemotherapy. Both of these things suppress the immune system and being in the hospital is NOT the best thing for you because there are BAD bacteria in the hospital that you can not get at home. Take care of yourself. If you have any questions after going home you can call the rehab unit at [phone] or my office phone at [phone] and we will fo our best to help you. Pending Tests on Discharge: none Allergies/Adverse Reactions: Allergies No Known Allergies Allergy (Verified 10/09/19 10:36) Medications to take at Discharge Citalopram [Celexa] 40 mg PO DAILY 12/15/16 Folic Acid 1 mg PO DAILY 08/25/19 Levothyroxine [Synthroid] 75 mcg PO DAILY 10/09/19 Omeprazole 40 mg PO DAILY 10/09/19 Potassium Chloride [K-Dur] 20 meq PO DAILYCM 10/18/19 Acetaminophen [Tylenol] 1,000 mg PO TID tab 10/30/19 Atorvastatin Calcium [Lipitor] 40 mg PO QHS #30 tab 10/30/19 Calcium Carbonate [Tums] 500 mg PO BIDCM #60 tab 10/30/19 Ergocalciferol [Vitamin D] 50,000 unit PO Q7D #4 cap 10/30/19 Ergocalciferol [Vitamin D] 50,000 unit PO Q7D@1000 #0 cap 10/30/19 Lisinopril [Zestril] 5 mg PO DAILY #30 tab 10/30/19 Magnesium Chloride [Slow-Mag] 71.5 mg PO Q8H #90 tablet.dr 10/30/19 Meloxicam [Mobic] 7.5 mg PO BID #60 tab 10/30/19 Nicotine [Nicoderm] 14 mg TRANSDERM. DAILY #28 patch 10/30/19 Oxycodone [Oxyir] 5 mg PO Q6H PRN PRN 7 Days #21 tab 10/30/19 Pregabalin [Lyrica] 150 mg PO BID #60 cap 10/30/19 Quetiapine Fumarate [Seroquel] 300 mg PO QHS #30 tab 10/30/19 Tamsulosin HCl [Flomax] 0.4 mg PO DAILY@1730 #30 cap 10/30/19 The following prescriptions were given: Atorvastatin Calcium [Lipitor] 40 mg PO QHS #30 tab Transmission Status: Received by [id number] Pregabalin [Lyrica] 150 mg PO BID #60 cap Transmission Status: Received by [facility][id number] Meloxicam [Mobic] 7.5 mg PO BID #60 tab Transmission Status: Received by [facility][id number] Nicotine [Nicoderm] 14 mg TRANSDERM. DAILY #28 patch Transmission Status: Received by [facility][id number] Oxycodone [Oxyir] 5 mg PO Q6H PRN PRN 7 Days #21 tab PRN Reason: Pain Score 5-10 Transmission Status: Received by [facility][id number] Quetiapine Fumarate [Seroquel] 300 mg PO QHS #30 tab Transmission Status: Received by [facility][id number] Magnesium Chloride [Slow-Mag] 71.5 mg PO Q8H #90 tablet.dr Transmission Status: Received by [facility][id number] Calcium Carbonate [Tums] 500 mg PO BIDCM #60 tab Transmission Status: Received by [facility][id number] Ergocalciferol [Vitamin D] 50,000 unit PO Q7D #4 cap Transmission Status: Received by [facility][id number] Lisinopril [Zestril] 5 mg PO DAILY #30 tab Transmission Status: Received by [facility][id number] Primary Care Physician: Zurdo Esparza MD [Primary Care Provider] - Test Results: Test results from this visit will be discussed in further detail at your follow-up appointment, if applicable. Please Follow Up With: Dr. Shrestha When: Wednesday Please Follow Up With: Dr. Zurdo Esparza When: Wednesday Please Follow Up With: Dr. Boucher - [facility] Please Follow Up With: Dr. Son Laguerre When: call the office for an appt. Proposed Discharge Date: 10/31/19
[2019-10-30] MEDS: oxyCODONE 5 MG Tablet PO (15:37)
--- NOTE | 2019-10-30 16:14 | PCM.PN.BLA ---
Progress Note Afebrile VSS Maintaining appropriate oxygen saturation on RA Oral intake is good Discussed with nursing - no problems that need addressed Reviewed the PT/OT notes Medication list reviewed. Blood sugar record was reviewed and the blood sugars are under excellent control on a carbohydrate controlled diet and no medication No complaints today Alert, oriented x3 Lungs-clear to auscultation after a few deep breaths. Heart-regular rate and rhythm, no gallop Abdomen-soft, nontender, nondistended No peripheral edema No calf tenderness No rashes or breakdown Incision has no arthur-incisional erythema, swelling or discharge Impressions 1. Status post traumatic right hip fracture due to a fall 2. Status post right cemented hemiarthroplasty by Dr. Steven Shrestha 3. Diabetes mellitus type 2-diet controlled at the present time 4. Toxic encephalopathy-resolved with discontinuation of Keppra and decrease in Seroquel, Lyrica doses. Trazodone also discontinued and benzodiazepines. Pain is adequately controlled with 1 OxyIR every 6 hours as needed for pain 5. Seizure at admission to the hospital more likely than not due to severe hypocalcemia with a calcium less than 5. Keppra was discontinued at admission to the rehab unit and he has not had any seizures while in rehab. 6. Hypocalcemia-resolved 7. Hypomagnesemia-currently on a supplement Smoking cessation counselling and moderation with beer consumption were discussed. I recommend no more than 1-2 12 oz beers a day due to interaction of ETOH with Seroquel and Lyrica. This leads to increased lethargy, confusion and probably falls...I suspect this is what happened at admission. Plan [place] [facility] [place] and to help with organizing his medications and setting him up with a pill box. Inpatient E&M: [id number] Subs Hosp L2
[2019-10-30] MEDS: Tamsulosin HCl 0.4 MG Capsule PO (16:44)
[2019-10-30 20:30] VITALS: PULSE 90; RESP 16; O2SAT 98
[2019-10-30] MEDS: QUEtiapine 100 MG Tablet 300 MG PO (20:36)
[2019-10-30] MEDS: Atorvastatin Calcium 40 MG Tablet PO (20:36)
[2019-10-30 21:11] VITALS: BP 121/68; PULSE 90; RESP 16; TEMP 36.7; O2SAT 98
--- NOTE | 2019-10-31 02:59 | NURSING ---
Reviewed and agree with JAZZ [employer]INGER documentation and charting.
[2019-10-31] MEDS: Levothyroxine 75 MCG Tablet PO (05:54)
[2019-10-31] MEDS: Acetaminophen 500 MG Tablet 1000 MG PO (05:54)
[2019-10-31] MEDS: Enoxaparin 40 MG/0.4 ML Syringe SC (05:54)
[2019-10-31 06:16] LABS: Hematocrit 30.6 % (40-54); Hemoglobin 9.9 g/dL (13.0-16.5); Mean Corp Hgb Conc 32.4 g/dL (32-36); Mean Corpuscular Hgb 33.1 pg (27.0-32.0); Mean Corpuscular Volume 102.3 fL (80-94); POSITIVE MORPHOLOGY YES; Platelet Count 393 K/mm3 (150-450); RBC Distribution Width CV 20.1 % (11.6-14.6); RBC Distribution Width SD 73.6 fl (35.1-43.9); Red Blood Count 2.99 M/mm3 (4.6-6.2); White Blood Count 7.2 K/mm3 (4.4-11.0)
[2019-10-31 06:19] LABS: Scan Indicated on CBC? Y/N YES- FLAGS NOTED
[2019-10-31 06:37] LABS: Anion Gap 4 (5-15); BUN 28 mg/dL (7-18); Calcium,Total 9.3 mg/dL (8.5-10.1); Chloride 106 mmol/L (98-107); Creatinine, Serum 1.22 mg/dL (0.70-1.30); Differential Comment SCANNED; EST Glomerular Filtration Rate 65 mL/min (>60); Est Glom Filt Rate - Afr Amer 79 mL/min (>60); Estimated Creatinine Clearance 63.21 ml/min; Glucose 86 mg/dL (74-106); Magnesium 1.3 mg/dL (1.6-2.6); Potassium 4.7 mmol/L (3.5-5.1); Sodium Level 138 mmol/L (136-145)
[2019-10-31] MEDS: Magnesium Oxide 400 MG Tablet PO ×2 (07:27→11:39)
[2019-10-31] MEDS: Folic Acid 1 MG Tablet PO (07:27)
[2019-10-31] MEDS: Ferrous Sulfate 325 MG Tablet PO (07:27)
[2019-10-31] MEDS: Meloxicam 7.5 MG Tablet PO (07:28)
[2019-10-31] MEDS: Calcium Carbonate 500 MG Tablet PO (07:28)
[2019-10-31] MEDS: Citalopram 40 MG TABLET PO (07:28)
[2019-10-31] MEDS: Pantoprazole Sodium 40 MG Tablet PO (07:28)
[2019-10-31] MEDS: Ascorbic Acid 500 MG Tablet PO (07:28)
[2019-10-31] MEDS: Lisinopril 5 MG Tablet PO (07:29)
[2019-10-31] MEDS: Pregabalin 75 MG Capsule 150 MG PO (07:30)
[2019-10-31 09:18] VITALS: BP 117/70; PULSE 90; RESP 17; TEMP 36.5; O2SAT 96
[2019-10-31] MEDS: 0.9% Saline Lock 10 ML Syringe IV (11:09)
--- NOTE | 2019-10-31 12:01 | DS.PCM_ITS ---
Discharge Date and Diagnosis - Problem List Patient Problems: Active and Suspected Problems (Last Reviewed 10/19/19 @ 14:[address] Tiffany Newell DO) Urine retention (Acute) Acute on chronic anemia (Acute) Closed right hip fracture (Acute) New onset seizure (Acute) likely due to profound hypocalcemia (< 5) EEG and MRI normal Hypocalcemia (Acute) Hypomagnesemia (Acute) History of hemiarthroplasty of right hip (Acute) 10/09/[address] Steven Shrestha Vitamin D deficiency (Acute) Date of Admission: 10/18/19 Date of Discharge: 10/31/19 - Primary Discharge Diagnosis Active and Suspected Problems (Last Reviewed 10/19/19 @ 14:[address] Tiffany Newell DO) Debility secondary to traumatic closed right hip fracture and subsequent hemiarthroplasty by Dr. Steven Shrestha on 10/09/2019 Closed right hip fracture (Acute) secondary to a fall History of hemiarthroplasty of right hip (Acute) 10/09/[address] Steven Shrestha Toxic/metabolic encephalopathy due to sedating medications, hypocalcemia, hypomagnesemia New onset seizure (Acute) likely due to profound hypocalcemia (< 5) EEG and MRI normal Hypocalcemia (Acute)-resolved Hypomagnesemia (Acute) - improving Vitamin D deficiency (Acute) Urine retention (Acute)-resolved Acute on chronic anemia (Acute) - more likely than not due to blood loss from surgery. 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 Hospital Course and Treatment Imaging Results: Clinical Impression(s) from Imaging Studies Chest X-Ray 10/21/19 11:35 IMPRESSION: Pleural thickening versus loculated pleural effusion versus pleural-based mass at the left lung apex. There is suggestion of some degree of scarring of the left upper lobe with questionable retraction of the left hilum cephalad suggestive of subacute to chronic inflammatory response. Clinical correlation recommended. Remainder of the lung choudhary are clear with otherwise no acute interval change. Electronically Signed: Delma Nath MD at 1:01 EDT , Service support , Hip X-Ray 10/23/19 11:26 IMPRESSION: Status post right total hip replacement. There is good alignment. Electronically Signed: Baljinder Olivo, at 15:24 EDT , Service support , Laboratory Results - last 24 hr 10/31/19 10/31/19 06:08 06:08 WBC 7.2 RBC 2.99 L Hgb 9.9 L Hct 30.6 L MCV 102.3 H MCH 33.1 H MCHC 32.4 RDW Std Deviation 73.6 H RDW Coeff of Sophie 20.1 H Plt Count 393 MPV 10.0 Differential Comment SCANNED Sodium 138 Potassium 4.7 Chloride 106 Carbon Dioxide 28.0 Anion Gap 4 L BUN 28 H Creatinine 1.22 Estim Creat Clear Calc 63.21 Est GFR (MDRD) Af Amer 79 Est GFR (MDRD) Non-Af 65 BUN/Creatinine Ratio 23.0 H Glucose 86 Calcium 9.3 Magnesium 1.3 L none Operations: total hip replacement - s/p right hip cemented hemiarthroplasty on 10/11/19 Procedures: None Summary of Care Provided: Polo Givens is a 54 year old M with a past medical history of alcohol use/abuse, tobacco dependence, remote illicit drug use, major depression with psychotic features, stage IV adenocarcinoma of the left lung with a Pancoast tumor on the left and a small metastatic nodule in the right apex, thrombocytopenia, macrocytic anemia, diabetes mellitus type 2, hypertension, vitamin D deficiency, GERD, history of Breen's esophagus, chronic diarrhea (due to Metformin) and recent admission to [facility] on 10/09/2019 for a right hip fracture sustained in a fall related to near syncope/syncope. At the time of that admission he had profound Hypocalcemia (<5) and hypomagnesemia (0,4). He underwent R cemented hemiarthroplasty by Dr. Steven Shrestha on 10/11/2019. While having a noncontrasted CT of the brain on 10/09/2019 he had a witnessed tonic clonic seizure and he had no hx of seizures. He was started on Keppra 1,000 mg Q 12H. MRI and EEG were normal. I suspect the seizure was likely due to profound hypocalcemia, He was admitted to the [facility] on 10/18/19 for > 3 hours of therapy daily to restore him to his prior level of functioning. He lives by himself. He had been using a cane and a walker at home prior to the fall. On the morning of 10/18 he was confused and so lethargic he could not do therapy. He had urine retention. Lethargy, urine retention and confusion were more likely than not due to toxic encephalopathy due to the combined effects of multiple sedating drugs including Keppra 1000 mg p.o. twice daily, Seroquel 400 mg nightly, trazodone 50 mg nightly, Lyrica 300 mg p.o. twice daily, PRN benzo's and narcotics. The OARRS was reviewed. I spoke with Lito from PT who saw him prior to DC from the acute hospital and he stated he was alert and appropriate when he evaluated him prior to transfer to rehab. Keppra was discontinued and seizure precautions were put in place. Seroquel was decreased to 300 mg p.o. nightly. Trazodone and benzodiazepines were discontinued. OxyIR was decreased to 5 mg p.o. every 6 hours as needed for pain. Lyrica was decreased to 150 mg p.o. every 12 hours. With the adjustments in the medications he became alert and was able to participate in therapy. He had no seizures off Keppra and his pain was well controlled. He slept well at night and was very pleasant and cooperative. The urine retention resolved. The initial hemoglobin on rehab was 7.5 and he complained of shortness of breath and lightheadedness. He was transfused with 2 units of packed red blood cells and on the day of discharge his hemoglobin was stable at 9.9. The magnesium was low at 1.2 but the calcium was within normal limits at admission to rehab. Both hypocalcemia and hypomagnesemia are common with the chemotherapeutic agents he receives. Mag-Ox was increased to 400 mg 3 times daily and he received intravenous magnesium as well. On 10/31/2019 his magnesium was 1.3. He was given 2 g of IV magnesium and transitioned to a long acting Magnesium at discharge which will cause less diarrhea and better retention of PO MAG. A vitamin D level was checked and was very low at 8.6. He was started on a magnesium supplement to help with calcium reabsorption in the gastrointestinal tract. On the date of discharge his calcium was 9.3. He will need to stay on vitamin D, calcium and magnesium indefinitely. During his admission he was counselled about smoking cessation and moderation with ETOH intake. His pain control is adequate at the time of [place] and he has been averaging only 1 OXY IR a day....some days he does not take any. I suspect he may have more pain when he goes home because he will have to do things by himself without assistance. [place] has a tendency to overmedicate and he has a remote hx of substance abuse. I reminded him that he is immunocompromised and a hospital is the last place he should be. In order to prevent falls and fractures going forward he should limit his indulgences with benzo's, ETOH, narcotics and Cannabis in the future. Urine retention resolved with Flomax and he was given a RX at [place]. He will follow up with Dr. Laguerre, Dr. Shrestha, Dr. Bolden and Dr. Esparza post discharge. Alert, oriented x3 Lungs-clear to auscultation after a few deep breaths. Heart-regular rate and rhythm, no gallop Abdomen-soft, nontender, nondistended No peripheral edema No calf tenderness No rashes or breakdown Incision has no arthur-incisional erythema, swelling or discharge This note was generated with [employer] dictation software. It may contain incorrect words, spelling, and punctuation that were not noted in checking the note before signing. Patient Problems: Active and Suspected Problems (Last Reviewed 10/19/19 @ 14:[address] Tiffany Newell DO) Urine retention (Acute) Acute on chronic anemia (Acute) Closed right hip fracture (Acute) New onset seizure (Acute) likely due to profound hypocalcemia (< 5) EEG and MRI normal Hypocalcemia (Acute) Hypomagnesemia (Acute) History of hemiarthroplasty of right hip (Acute) 10/09/[address] Steven Shrestha Vitamin D deficiency (Acute) - Physical Exam Vitals/I&O's: Vital Signs Temp Pulse Resp BP Pulse Ox 97.7 F L 90 17 117/70 96 10/31/19 09:18 10/31/19 09:18 10/31/19 09:18 10/31/19 09:18 10/31/19 09:18 Oxygen Flow Rate (L/min) 2 Oxygen Delivery Method Room Air Weight: 161 lb Body Mass Index (BMI) 27.8 Intake and Output for Last 24 Hours 10/29/19 10/30/19 10/31/19 23:59 23:59 23:59 Intake Total 800 / 800 1550 / 1550 Output Total 1150 / 1150 3000 / 3000 Balance -350 / -350 -1450 / -1450 Laboratory Results 10/31/19 06:08: WBC 7.2, RBC 2.99 L, Hgb 9.9 L, Hct 30.6 L, MCV 102.3 H, MCH 33.1 H, MCHC 32.4, RDW Std Deviation 73.6 H, RDW Coeff of Sophie 20.1 H, Plt Count 393, MPV 10.0, Differential Comment SCANNED 10/31/19 06:08: Sodium 138, Potassium 4.7, Chloride 106, Carbon Dioxide 28.0, Anion Gap 4 L, BUN 28 H, Creatinine 1.22, Estim Creat Clear Calc 63.21, Est GFR (MDRD) Af Amer 79, Est GFR (MDRD) Non-Af 65, BUN/Creatinine Ratio 23.0 H, Glucose 86, Calcium 9.3, Magnesium 1.3 L Current Medications Acetaminophen (Tylenol) 1,000 mg PO TID [facility] Last Admin: 10/31/19 05:54 Dose: 1,000 mg Documented by: Ascorbic Acid (Vitamin C) 500 mg PO DAILY@0800 [facility] Last Admin: 10/31/19 07:28 Dose: 500 mg Documented by: Atorvastatin Calcium (Lipitor) 40 mg PO QHS [facility] Last Admin: 10/30/19 20:36 Dose: 40 mg Documented by: Bisacodyl (Dulcolax) 10 mg RECTAL .PRN X 1 PRN PRN Reason: Constipation [facility] Last Admin: 10/31/19 07:28 Dose: 500 mg Documented by: Citalopram Hydrobromide (Celexa) 40 mg PO DAILY [facility] Last Admin: 10/31/19 07:28 Dose: 40 mg Documented by: Enoxaparin Sodium (Lovenox) 40 mg SC DAILY@0600 [facility] Last Admin: 10/31/19 05:54 Dose: 40 mg Documented by: Ergocalciferol (Vitamin D) 50,000 unit PO Q7D@1000 [facility] Last Admin: 10/25/19 07:38 Dose: 50,000 unit Documented by: Ferrous Sulfate (Ferrous Sulfate) 325 mg PO DAILY@0800 [facility] Last Admin: 10/31/19 07:27 Dose: 325 mg Documented by: Folic Acid (Folic Acid) [facility] Last Admin: 10/31/19 07:27 Dose: 1 mg Documented by: Levothyroxine Sodium (Synthroid) 75 mcg PO DAILY@0600 [facility] Last Admin: 10/31/19 05:54 Dose: 75 mcg Documented by: Lisinopril (Zestril) 5 mg PO DAILY [facility] Last Admin: 10/31/19 07:29 Dose: 5 mg Documented by: Magnesium Hydroxide (Milk Of Magnesia) 30 ml PO .PRN X 1 PRN PRN Reason: Constipation Magnesium Oxide (Mag-Ox 400) 400 mg PO TIDCM [facility] Last Admin: 10/31/19 11:39 Dose: 400 mg Documented by: Meloxicam (Mobic) 7.5 mg PO BID [facility] Last Admin: 10/31/19 07:28 Dose: 7.5 mg Documented by: Nicotine (Nicoderm Cq (Pbkc)) 14 mg TRANSDERM. DAILY [facility] Last Admin: 10/31/19 07:28 Dose: 14 mg Documented by: Oxycodone HCl (Oxyir) 5 mg PO Q6H PRN PRN PRN Reason: Pain Score 5-10 Last Admin: 10/30/19 15:37 Dose: 5 mg Documented by: Pantoprazole Sodium (Protonix) 40 mg PO DAILY [facility] Last Admin: 10/31/19 07:28 Dose: 40 mg Documented by: Potassium Chloride (K-Dur) 20 meq PO DAILYCM [facility] Last Admin: 10/31/19 07:27 Dose: 20 meq Documented by: Pregabalin (Lyrica) 150 mg PO BID [facility] Last Admin: 10/31/19 07:30 Dose: 150 mg Documented by: Quetiapine Fumarate (Seroquel) 300 mg PO 1999 [facility] Last Admin: 10/30/19 20:36 Dose: 300 mg Documented by: Sodium Chloride () 10 - 40 ml IV UD PRN PRN Reason: SALINE FLUSH Last Admin: 10/31/19 11:09 Dose: 10 ml Documented by: Tamsulosin HCl (Flomax) 0.4 mg PO DAILY@1730 [facility] Last Admin: 10/30/19 16:44 Dose: 0.4 mg Documented by: Discharge Activity: May Not Drive, May Shower - use the shower chair, - - No bending at the waist more than 30 degrees, do NOT cross the right leg over the left leg and no twisting. These restrictions are for the next 3 months. Weight Bearing Status: Full weight bearing Keep extremity elevated above heart level: Right Leg Call your doctor if your incision/area has: Continuous Slow Oozing, Sudden Increased Bleeding, Increased Pain/ Swelling, Increased Redness, Foul Smelling Discharge, Swelling at the incision site Call your doctor if you observe: Fever of 101 or Higher, Numbness or Tingling, Inability to urinate, Inability to have a bowel movement, Shortness of breath, Dizziness, Fainting spells, Swelling in the ankles, Chest pain, Increased palpitations (irregular heartbeat), Calf discomfort, Uncontrolled pain Home Medications: Medications to take at Discharge Citalopram [Celexa] 40 mg PO DAILY 12/15/16 Folic Acid 1 mg PO DAILY 08/25/19 Levothyroxine [Synthroid] 75 mcg PO DAILY 10/09/19 Omeprazole 40 mg PO DAILY 10/09/19 Potassium Chloride [K-Dur] 20 meq PO DAILYCM 10/18/19 Acetaminophen [Tylenol] 1,000 mg PO TID tab 10/30/19 Atorvastatin Calcium [Lipitor] 40 mg PO QHS #30 tab 10/30/19 Calcium Carbonate [Tums] 500 mg PO BIDCM #60 tab 10/30/19 Ergocalciferol [Vitamin D] 50,000 unit PO Q7D #4 cap 10/30/19 Ergocalciferol [Vitamin D] 50,000 unit PO Q7D@1000 #0 cap 10/30/19 Lisinopril [Zestril] 5 mg PO DAILY #30 tab 10/30/19 Magnesium Chloride [Slow-Mag] 71.5 mg PO Q8H #90 tablet.dr 10/30/19 Meloxicam [Mobic] 7.5 mg PO BID #60 tab 10/30/19 Nicotine [Nicoderm] 14 mg TRANSDERM. DAILY #28 patch 10/30/19 Oxycodone [Oxyir] 5 mg PO Q6H PRN PRN 7 Days #21 tab 10/30/19 Pregabalin [Lyrica] 150 mg PO BID #60 cap 10/30/19 Quetiapine Fumarate [Seroquel] 300 mg PO QHS #30 tab 10/30/19 Tamsulosin HCl [Flomax] 0.4 mg PO DAILY@1730 #30 cap 10/30/19 Following Prescrptions Were Given to Patient: Atorvastatin Calcium [Lipitor] 40 mg PO QHS #30 tab Transmission Status: Received by [id number] Pregabalin [Lyrica] 150 mg PO BID #60 cap Transmission Status: Received by [id number] Meloxicam [Mobic] 7.5 mg PO BID #60 tab Transmission Status: Received by [facility][id number] Nicotine [Nicoderm] 14 mg TRANSDERM. DAILY #28 patch Transmission Status: Received by [facility][id number] Oxycodone [Oxyir] 5 mg PO Q6H PRN PRN 7 Days #21 tab PRN Reason: Pain Score 5-10 Transmission Status: Received by [id number] Quetiapine Fumarate [Seroquel] 300 mg PO QHS #30 tab Transmission Status: Received by [facility][id number] Magnesium Chloride [Slow-Mag] 71.5 mg PO Q8H #90 tablet.dr Transmission Status: Received by [facility][id number] Calcium Carbonate [Tums] 500 mg PO BIDCM #60 tab Transmission Status: Received by [facility][id number] Ergocalciferol [Vitamin D] 50,000 unit PO Q7D #4 cap Transmission Status: Received by [facility][id number] Lisinopril [Zestril] 5 mg PO DAILY #30 tab Transmission Status: Received by [facility][id number] Primary Care Physician: Zurdo Esparza MD [Primary Care Provider] - Please Follow Up With: Dr. Shrestha When: Wednesday Please Follow Up With: Dr. Zurdo Esparza When: Wednesday Please Follow Up With: Dr. Boucher - [facility] Please Follow Up With: Dr. Son Laguerre When: call the office for an appt. Minutes spent on discharge:: 40 Patient Condition:: Good Medical Necessity - Tobacco Use Smoking Status: Heavy Smoker (>10/day) - 1- 1 and 1/2 PPD Tobacco Use: Cigarettes Meaningful Use Info Meaningful Use Diagnoses (Choose all that apply): None applicable Inpatient E&M: 06102 [facility]
[2019-10-31 13:20] VITALS: BP 117/70; PULSE 90; RESP 17; TEMP 36.5; O2SAT 96
--- NOTE | 2019-10-31 13:20 | NURSING ---
Nursing instruct given with DC directions and patient verbalized understanding. Home meds returned.
== END 2019-10-31 13:20 | disposition home health service (06) | DRG 559 ==
PROVIDERS: Admitting Provider Internal Medicine; PCP Internal Medicine; Visit Provider Internal Medicine
DX: S72.001D Fracture of unspecified part of neck of right femur, subsequent encounter for closed fracture with routine healing (principal); G92 Toxic encephalopathy; G40.89 Other seizures; C34.12 Malignant neoplasm of upper lobe, left bronchus or lung; C34.11 Malignant neoplasm of upper lobe, right bronchus or lung; D62 Acute posthemorrhagic anemia; W19.XXXD Unspecified fall, subsequent encounter; F31.9 Bipolar disorder, unspecified; I10 Essential (primary) hypertension; E03.9 Hypothyroidism, unspecified; K21.9 Gastro-esophageal reflux disease without esophagitis; B18.2 Chronic viral hepatitis C; D50.9 Iron deficiency anemia, unspecified; F10.10 Alcohol abuse, uncomplicated; F17.210 Nicotine dependence, cigarettes, uncomplicated; E83.42 Hypomagnesemia; D69.6 Thrombocytopenia, unspecified; T45.1X5A Adverse effect of antineoplastic and immunosuppressive drugs, initial encounter; G54.0 Brachial plexus disorders; E11.42 Type 2 diabetes mellitus with diabetic polyneuropathy; D64.81 Anemia due to antineoplastic chemotherapy; F41.9 Anxiety disorder, unspecified; E83.51 Hypocalcemia
CPT/HCPCS: 36415; 71046; 73502; 80048; 81050; 82140; 82570; 82962; 83735; 84100; 85014; 85018; 85027; 86850; 86900; 86901; 86920; 86922; 92507; 92523; 93005; 94667; 94668; 97110; 97116; 97162; 97166; 97530; 97535; 97802; 97803; 99251; J7030; P9016; A4216; G0463

== ENCOUNTER 2019-11-23 15:34 | Inpatient (IN) | payer MEDICARE, MEDICAID, SELFPAY ==
[2019-10-18 12:02] VITALS: BMI 27.8
[2019-11-23] VITALS (12 sets, daily range): BP systolic 79–145; BP diastolic 44–85; PULSE 78–90; RESP 12–18; TEMP 36.3–36.8; O2SAT 93–100; BMI 26.6; BMI 25.7
--- NOTE | 2019-11-23 15:55 | ED.VISSUMM ---
- ER Visit Summary Date of Service: 11/23/19 Chief Complaint: [Abnormal labs] History of Present Illness: The patient is a 54 M presents to the emergency department with complaint of abnormal labs today. Patient states that he received chemotherapy today with Dr. Harper for history of lung cancer and he had blood work performed prior to the chemotherapy. Patient was called and told that he needed to be seen in the emergency department because his kidneys were not working right. Patient denies recent illness. He denies any fever. Patient had been urinating normally until today as he has not urinated today. Patient's only complaint is of some mild fatigue but states he got up early today. Patient has history of GERD, diabetes, hypertension, hypothyroidism, history of lung cancer, and history of hepatitis C. Patient states that over the last month his blood pressures been running low with the top number being in the 70s and 80s. Patient denies feeling lightheaded or dizzy.] Physical Examination: [HEENT-PERRLA, EOMI. Cranial nerves II through XII grossly intact. TMs clear. Mucous membranes moist. No adenopathy. Cardiovascular-regular rate and rhythm without murmur or ectopy Lungs-clear to auscultation, chest wall stable without crepitus or subcu emphysema Abdomen-normoactive bowel sounds, soft, nontender, no rebound or rigidity, no peritoneal signs. Extremities-intact ?4, normal range of motion, normal pulses, atraumatic] Test Results: [CBC with differential obtained showed a white count of 8.5, hemoglobin 10.9, hematocrit 36, plates 190. Chemistries unremarkable. BUN was 26 and creatinine 4.68.] Emergency Department Course and Treatment: [ Established. Patient was given a 500 cc fluid bolus. Pressure came up a little bit into the mid 80s.] Treatment Plan: [Case was discussed with hospitalist who will evaluate patient for admission] Disposition: [Admit] Impression: [Renal failure Hypotension Lung cancer] This note was generated with [employer] dictation software. It may contain incorrect words, spelling, and punctuation that were not noted in review of the chart prior to signing ED Disposition - Plan for ED Patient: Referrals: Zurdo Esparza MD [Primary Care Provider] -
[2019-11-23 16:11] LABS: Absolute Lymphocyte Count 0.94 X10^3/uL (0.83-4.51); Absolute Neutrophil Count 6.3 X10^3/uL (2.0-7.7); Basophil# 0.04 X10^3/uL; Basophil% 0.5 % (0-1); Eosinophil# 0.26 X10^3/uL; Hematocrit 34.2 % (40-54); Hemoglobin 10.9 g/dL (13.0-16.5); Lymphocyte # 0.94 X10^3/ul (4.0); Mean Corp Hgb Conc 31.9 g/dL (32-36); Mean Corpuscular Hgb 33.5 pg (27.0-32.0); Mean Corpuscular Volume 105.2 fL (80-94); Mean Platelet Vol. 10.2 fl (6.2-12.0); Monocyte# 0.88 X10^3/uL; Monocyte% 10.3 % (0-10); NRBC Flagged by Analyzer 0 % (0-5); Neutrophil # 6.34 X10^3/uL (2.7-7.7); Neutrophil % 74.3 % (47-70); POSITIVE MORPHOLOGY YES; Platelet Count 190 K/mm3 (150-450); RBC Distribution Width SD 69.9 fl (35.1-43.9); Red Blood Count 3.25 M/mm3 (4.6-6.2); White Blood Count 8.5 K/mm3 (4.4-11.0)
[2019-11-23 16:25] LABS: Anion Gap 10 (5-15); BUN 26 mg/dL (7-18); BUN/Creat Ratio 5.6 RATIO (10-20); Calcium,Total 8.7 mg/dL (8.5-10.1); Chloride 99 mmol/L (98-107); Creatinine, Serum 4.68 mg/dL (0.70-1.30); EST Glomerular Filtration Rate 14 mL/min (>60); Est Glom Filt Rate - Afr Amer 17 mL/min (>60); Estimated Creatinine Clearance 16.48 ml/min; Glucose 71 mg/dL (74-106); Potassium 3.9 mmol/L (3.5-5.1); Sodium Level 131 mmol/L (136-145)
[2019-11-23 16:41] LABS: Differential Indicated SCAN CRITERIA MET
[2019-11-23 16:43] LABS: Anisocytosis 1+; Macrocytosis 1+; Platelet Estimate ADEQUATE (ADEQ)
[2019-11-23] MEDS: 0.9% Normal Saline 1,000 ML 150 ML IV (16:57)
--- NOTE | 2019-11-23 17:42 | PCM.HP.STD ---
Problem List (1) Major depression with psychotic features Status: Chronic (2) QT prolongation Status: Inactive (3) Acute on chronic anemia Status: Inactive (4) Toxic metabolic encephalopathy Status: Inactive (5) Closed right hip fracture Status: Chronic (6) New onset seizure Status: Chronic Comment: likely due to profound hypocalcemia (< 5) EEG and MRI normal (7) Hypocalcemia Status: Chronic (8) Tobacco dependence Status: Chronic (9) Hypertension Status: Inactive (10) Peripheral neuropathy Status: Chronic Comment: due to compression of the left brachial plexus by pancoast tumor left apes due to adenocarcinoma (11) Hypothyroidism Status: Chronic (12) Diabetes mellitus type 2 in nonobese Status: Chronic (13) Chronic narcotic use Status: Chronic (14) GERD (gastroesophageal reflux disease) Status: Chronic Comment: with a hx of Breen's esophagus (15) Hypomagnesemia Status: Inactive (16) Thrombocytopenia Status: Chronic (17) History of hemiarthroplasty of right hip Status: Chronic Comment: 10/09/[address] Steven Shrestha (18) Vitamin D deficiency Status: Chronic (19) Adenocarcinoma of left lung Status: Chronic Comment: with a metastatic lesion in the RUL (20) Alcohol abuse Status: Chronic (21) Barretts esophagus Status: Chronic (22) Chronic hepatitis C Status: Chronic (23) Cannabis use, uncomplicated Status: Chronic Comment: admits to 1 joint a day History of Present Illness Date of Admission: 11/23/19 Chief Complaint: Acute kidney injury The patient is a 54 year old M with history of adenocarcinoma of left lung with a metastatic lesion in right upper lobe, being managed by Dr. Harper was sent from chemotherapy center after he was found acute kidney injury. Patient has noticed low blood pressure for 3 to 4 weeks with blood pressure, systolic running in 80s which used to be high, hypertension prior to chemo. Patient denies any change in the urine output. Patient gets infrequent loose bowel movement about 3-4 times but not large volume. Denies vomiting. Denies fever, cough or recent exposure to suspected or confirmed case of COVID-19. His urine color he said clear. Denies lower urinary tract symptoms including burning micturition or increased frequency urgency. In ED, BUN/creatinine 26/4.68, sodium 131. H&H 10.9/34. Platelet count 190,000. ED vitals shows BP 80/52, heart rate 83/min, no hypoxia or tachypnea. Patient had 500 normal saline bolus in ER. I ordered 1 L normal saline bolus and then 150 mill per hour. No chest x-ray or EKG needed. Last chest x-ray on 10/14/2019 shows no acute cardiopulmonary abnormality and grossly unchanged left upper lobe mass. 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 Steven Shrestha Vitamin D deficiency (Chronic) Adenocarcinoma of left lung (Chronic) with a metastatic lesion in the RUL Alcohol abuse (Chronic) Barretts esophagus (Chronic) Chronic hepatitis C (Chronic) Cannabis use, uncomplicated (Chronic) admits to 1 joint a day Medical History: Medical History (Last Reviewed 10/19/19 @ 14:[address] Tiffany Newell DO) DM2 (diabetes mellitus, type 2) E11.9 Non-small cell lung cancer C34.90 HTN (hypertension) I10 Allergies No Known Allergies Allergy (Verified 11/23/19 15:42) Home Medications: Ambulatory Orders Medication Instructions Recorded Citalopram [Celexa] 40 mg PO DAILY 12/15/16 Folic Acid 1 mg PO DAILY 08/25/19 Levothyroxine [Synthroid] 75 mcg PO DAILY 10/09/19 Omeprazole 40 mg PO DAILY 10/09/19 Atorvastatin Calcium [Lipitor] 40 mg PO QHS #30 tab 10/30/19 Calcium Carbonate [Tums] 500 mg PO BIDCM #60 tab 10/30/19 Lisinopril [Zestril] 5 mg PO DAILY #30 tab 10/30/19 Magnesium Chloride [Slow-Mag] 71.5 mg PO Q8H #90 tablet. 10/30/19 Pregabalin [Lyrica] 150 mg PO BID #60 cap 10/30/19 Quetiapine Fumarate [Seroquel] 300 mg PO QHS #30 tab 10/30/19 Tamsulosin HCl [Flomax] 0.4 mg PO DAILY@1730 #30 cap 10/30/19 Ergocalciferol [Vitamin D] 50,000 unit PO WE 11/23/19 Meloxicam 15 mg PO BID 11/23/19 Surgical History: noncontributory Psychiatric History: Bipolar - he tells me that he does not know if he is bipolar or not but, he thinks his mother is bipolar Smoking Status: Current every day smoker Tobacco Use: Cigarettes - *Family History Maternal History Items: - - no lung cancer. He thinks his mother is bipolar Review of Systems Constitutional: Denies: Chills, Fever, Weight Change HEENT: Denies: Head Aches, Sinus Congestion, Sinus Drainage Cardiovascular: Reports: Edema. Denies: Chest Pain, Palpitations Respiratory: Denies: Cough, Shortness of breath at rest, Sputum production Gastrointestinal: Denies: Abdominal Pain, Nausea, Vomiting Genitourinary: Denies: Dysuria, Frequency, Hematuria, Retention, Urgency Musculoskeletal: Reports: Joint Pain - Right hip fracture status post surgery. Chronic right hip pain after surgery.. Denies: Joint Tenderness Skin: Denies: Rash, Wounds Neurological: Reports: Balance problems. Denies: Numbness, Tingling Psychiatric: Denies: Anxiety, Depression, Homicidal Ideations, Suicidal Ideations Hematologic/ Lymphatic: Denies: Easy Bruising, Easy Bleeding VTE Information - Inpt Only VTE Present on Admission: No VTE Mechan Device Prophylaxis: None VTE Pharm Prophylaxis ordered?: Yes - Physical Exam Vitals/I&O's: Vital Signs Temp Pulse Resp BP Pulse Ox 98.2 F 84 15 81/53 L 94 11/23/19 16:41 11/23/19 16:41 11/23/19 16:41 11/23/19 16:41 11/23/19 16:41 Oxygen Delivery Method Room Air Weight: 169 lb 12.095 oz Body Mass Index (BMI) 26.6 Intake and Output for Last 24 Hours 11/21/19 11/22/19 11/23/19 23:59 23:59 23:59 Intake Total 500 / 500 Balance 500 / 500 General: Alert, Oriented x3, Cooperative, Lethargic, - - Low muscle mass. HEENT: Atraumatic, PERRLA, EOMI, Normocephalic, - - Pale conjunctiva. No icterus Oral: Dry Mucosa, - Neck: Supple, No JVD, Negative Carotid Bruits Lungs: Diminished - Air entry diminished in bilateral lung bases, Rhonchi Cardiovascular: Regular rate, Regular Rhythm, Normal S1, Normal S2, No murmurs Abdomen: Bowel Sounds Present, Soft, Non Tender, Non-Distended Extremities: Capillary Refill Less than 3 Seconds, Edema - Edema both lower extremities 2+ below knee level Skin: No rashes, No breakdown Musculoskeletal: No Tenderness to Palpation of Joints or Extremities, Arthritic Changes, - - Status post right hip replacement. Neurological: Cranial nerves II-XII grossly intact, Deep Tendon Reflexes 2+/4 and Symmetrical, Neuro grossly intact Psych/Mental Status: Normal Affect, Appropriate Laboratory Results 11/23/19 16:00: WBC 8.5, RBC 3.25 L, Hgb 10.9 L, Hct 34.2 L, MCV 105.2 H, MCH 33.5 H, MCHC 31.9 L, RDW Std Deviation 69.9 H, RDW Coeff of Sophie 18.0 H, Plt Count 190, MPV 10.2, Immature Gran % (Auto) 0.900, Neut % (Auto) 74.3 H, Lymph % (Auto) 11.0 L, Shelby % (Auto) 10.3 H, Eos % (Auto) 3.0, Baso % (Auto) 0.5, Absolute Neuts (auto) 6.3, Absolute Lymphs (auto) 0.94, Nucleated RBC % 0, Platelet Estimate ADEQUATE, Anisocytosis 1+, Macrocytosis 1+ 11/23/19 16:00: Sodium 131 L, Potassium 3.9, Chloride 99, Carbon Dioxide 22.0, Anion Gap 10, BUN 26 H, Creatinine 4.68 H, Estim Creat Clear Calc 16.48, Est GFR (MDRD) Af Amer 17 L, Est GFR (MDRD) Non-Af 14 L, BUN/Creatinine Ratio 5.6 L, Glucose 71 L, Calcium 8.7 Current Medications Sodium Chloride () 1,000 mls @ 150 mls/hr IV .Q6H40M [facility] Last Admin: 11/23/19 16:57 Dose: 150 mls/hr Documented by: Sodium Chloride () 1,000 mls @ 999 mls/hr IV .Q1H1M ONE Stop: 11/23/19 18:16 Assessment/Plan All Active Problems (Last Reviewed 10/19/19 @ 14:[address] 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 Harper was sent from chemotherapy center after he was found acute kidney injury. Patient has noticed low blood pressure for 3 to 4 weeks with blood pressure, systolic running in 80s which used to be high, hypertension prior to chemo. 1. Acute kidney injury most probably prerenal/volume deficit/hypotension, with suspicion of ATN from prolonged hypotension/chemotherapy: Patient is being admitted in PCU. 1 L normal saline then 151/h. Keep map more than 65. Monitor intake and output. Monitor electrolytes and kidney function. Kidney and bladder ultrasound ordered for tomorrow a.m. If kidney function does not improve, will consult bottom presser. Patient also had EVERARDO on admission on October 09, 2019. 2. Left lung metastatic adenocarcinoma: Patient on chemotherapy and had radiotherapy in the past. Being managed by Dr. Harper. 3. History of seizure most probably secondary to profound hypocalcemia during previous admission for closed right hip fracture with toxic/metabolic encephalopathy in October 2019: Patient did not had any further seizure. 4. Chronic normocytic normochromic anemia most probably secondary to neoplasm/chemotherapy and thrombocytopenia: 5. Type 2 diabetes mellitus: Patient stated his blood sugar well controlled after diagnosis of cancer and chemotherapy most probably from weight loss: Glucose 71. Regular diet. 6. Hypertension not currently hypotension as mentioned above 7. Other comorbidities include major depression, history of QT prolongation, closed right hip fracture status post replacement, peripheral neuropathy, hypothyroidism, GERD, Breen's esophagus, chronic hepatitis C, chronic substance use/narcotic use: Multiple comorbidities complicates the present care and expect difficult and delay recovery. Chest x-ray and EKG ordered. DVT prophylaxis: Heparin 5000 UNITS subcutaneous twice daily Living will/advanced directive/end of life care: Patient does not have living will or advanced directive. After discussion of procedures involved with full code, DNR CC arrest and DNR CC, the patient opted for DNR-CC Arrest Patient does not want artificial life support including intubation, tube feed, ventilator and/chest compression, central venous catheter, vasopressor and DC shock if needed DNR CC arrest. Total time spent in [id number] encounter in discussion of advanced directive 16 minutes. Inpatient E&M: 23577 Init Hosp L3 Procedures: 25934 Advncd Care Plan 30 Min
--- NOTE | 2019-11-23 17:58 | RAD_ITS ---
STUDY: X-RAY CHEST REASON FOR EXAM: Male, 54 years old. HYPOTENSION, RT LUNG CA TECHNIQUE: Single AP portable view of the chest. COMPARISON: Prior study of 10/21/2019 FINDINGS: surveillance monitor leads are present. Left upper thoracic pleural thickening is present. There is left apical airspace disease with air bronchograms noted. There is no demonstrated pleural abnormality. Normal size heart. Normal mediastinum and [place]. Normal visualized pulmonary arteries. Normal visualized aortic arch and descending thoracic aorta. There are diffuse degenerative changes of the visualized thoracic spine. Normal visualized ribs, clavicles, and shoulders. There is no demonstrated abnormality of the visualized soft tissue structures of the upper abdomen. RAD/Chest 1 View (Portable) IMPRESSION: Left apical pleural thickening. Left apical airspace disease with air bronchograms noted. Degenerative changes of the thoracic spine. Findings appear similar allowing for differences in radiographic technique to the previous study of 10/21/2019. Electronically Signed: Monroe Henderson MD at 22:34 EDT , Service support ,
--- NOTE | 2019-11-23 17:58 | EKG12_ITS ---
Test Reason : PCU ADMIT Blood Pressure : / mmHG Vent. Rate : 088 BPM Atrial Rate : 088 BPM P-R Int : 160 ms QRS Dur : 090 ms QT Int : 420 ms P-R-T Axes : 000 067 066 degrees QTc Int : 508 ms Normal sinus rhythm Septal infarct , age undetermined Prolonged QT Abnormal ECG When compared with ECG of 20-OCT-2019 15:09, No significant change was found Confirmed by SHANIA BINGHAM, SUKUMAR ([id number]), assignment editor PHONG POPE ([id number]) on 11/28/2019 3:40:17 PM Referred By: SALVADOR Confirmed By:SUKUMAR JAUREGUI MD
[2019-11-23] MEDS: 0.9% Normal Saline 1,000 ML 999 ML IV (18:19)
[2019-11-23 18:53] LABS: AST(SGOT) 20 U/L (15-37); Alanine Aminotransfer ALT/SGPT 13 U/L (16-61); Albumin, Serum 2.7 g/dL (3.2-5.0); Alkaline Phosphatase 110 U/L (45-117); Bilirubin, Direct 2.41 mg/dL (0.00-0.30); Globulin 4.2 g/dL (2.2-4.2); Magnesium 1.5 mg/dL (1.6-2.6); Protein, Total 6.9 g/dL (6.4-8.2)
[2019-11-23] MEDS: oxyCODONE 5 MG Tablet PO (20:03)
[2019-11-23] MEDS: Heparin Injection (Vial) 5,000 UNIT/ML VIAL 5000 UNIT SC (20:55)
[2019-11-23] MEDS: Pregabalin 75 MG Capsule PO (20:55)
[2019-11-23 22:11] LABS: Bedside Glucose 120 mg/dL (70-110)
[2019-11-24] VITALS (56 sets, daily range): BP systolic 63–169; BP diastolic 36–159; PULSE 69–105; RESP 10–24; TEMP 36.1–36.8; O2SAT 89–100
[2019-11-24] MEDS: 0.9% Normal Saline 1,000 ML 500 ML IV ×3 (02:14→06:29)
--- NOTE | 2019-11-24 05:55 | US_ITS ---
STUDY: RENAL ULTRASOUND - COMPLETE REASON FOR EXAM: Male, 54 years old. EVERARDO TECHNIQUE: Ultrasound evaluation of the kidneys was performed with real-time and static rosales-scale imaging. COMPARISON: None. FINDINGS: RIGHT KIDNEY: Normal location of the right kidney, which is normal in size. The right kidney measures 11 x 6 x 5 cm. There is a normal cortex of the right kidney. The renal cortex measures 1.4 cm. There is no right renal mass or cyst. There are no right renal calculi. There is no right hydronephrosis. DISTAL RIGHT URETER: There is non-visualization of the distal right ureter. There is no demonstrated right ureterovesical junction calculus. There is a visualized right ureteral jet. LEFT KIDNEY: Normal location of the left kidney, which is normal in size. The left kidney measures 11.1 x 6.2 x 6 cm. There is a normal cortex of the left kidney. The renal cortex measures 1.9 cm. There is a 1.5 cm left renal cyst. There are no left renal calculi. There is no left hydronephrosis. DISTAL LEFT URETER: There is non-visualization of the distal left ureter. There is no demonstrated left ureterovesical junction calculus. There is a visualized left ureteral jet. AORTA: There is no demonstrated aneurysm.. I.V.C.: The IVC is patent. BLADDER: The distended urinary bladder has a volume of 214 ml. There is a normal wall thickness of the distended urinary bladder. There is no demonstrated mass within the urinary bladder. There are no demonstrated bladder calculi. US/Kidney and Bladder IMPRESSION: There is a 1.5 cm left renal cyst. There is no evidence of hydronephrosis. Electronically Signed: Hilda Sahu, at 11:30 EDT Tel , Service support ,
[2019-11-24 06:20] LABS: Absolute Lymphocyte Count 0.86 X10^3/uL (0.83-4.51); Basophil# 0.02 X10^3/uL; Basophil% 0.2 % (0-1); Eosinophil# 0.24 X10^3/uL; Eosinophils% 2.5 % (0-5); Hematocrit 33.4 % (40-54); Hemoglobin 10.7 g/dL (13.0-16.5); Lymphocyte # 0.86 X10^3/ul (4.0); Lymphocyte % 8.8 % (19-41); Mean Corpuscular Hgb 33.5 pg (27.0-32.0); Mean Corpuscular Volume 104.7 fL (80-94); Mean Platelet Vol. 10.1 fl (6.2-12.0); Monocyte# 0.56 X10^3/uL; Monocyte% 5.7 % (0-10); NRBC Flagged by Analyzer 0 % (0-5); Neutrophil # 8.02 X10^3/uL (2.7-7.7); Neutrophil % 82.4 % (47-70); POSITIVE MORPHOLOGY YES; Platelet Count 176 K/mm3 (150-450); RBC Distribution Width CV 17.8 % (11.6-14.6); RBC Distribution Width SD 69.3 fl (35.1-43.9); Red Blood Count 3.19 M/mm3 (4.6-6.2); White Blood Count 9.7 K/mm3 (4.4-11.0)
[2019-11-24 06:30] LABS: Differential Indicated SCAN CRITERIA MET
--- NOTE | 2019-11-24 06:39 | CT_ITS ---
STUDY: CT BRAIN WITHOUT CONTRAST REASON FOR EXAM: Male, 54 years old. ACUTE ENCEPHALOPATHY RADIATION DOSAGE (If Supplied By Facility): CTDIvol = ( 44.99 ) mGy, DLP = ( 812.98 ) mGycm TECHNIQUE: Transaxial CT imaging of the brain was performed without administration of intravenous contrast material. Individualized dose optimization techniques were used for this CT. COMPARISON: No relevant priors. FINDINGS: Normal soft tissue structures. Normal calvarium. There is mild cerebral atrophy with widening of the extra-axial spaces and ventricular dilatation. There are areas of decreased attenuation within the white matter tracts of the supratentorial brain, consistent with microvascular disease changes. Normal basal ganglia and thalami. Normal brainstem. There is mild cerebellar atrophy. There is no intracranial hemorrhage. There are no findings of an acute ischemic infarction. Normal visualized paranasal sinuses. CT/Brain/Head without Contrast IMPRESSION: Chronic involutional changes of the brain. There is NO hemorrhage, edema, mass, mass effect or midline shift. Electronically Signed: Ken Allen MD at 7:19 EDT , Service support ,
--- NOTE | 2019-11-24 06:41 | PCM.PN.BLA ---
Progress Note Patient with persistent low blood pressure with systolic less than 80. Nurse reported patient is very lethargic entire night. Order to give normal saline 2500 mL's bolus. Patient was examined at bedside. Patient has almost completed 2000 mL bolus. Of note in the last 24 hours patient also received 1500 mL's bolus and was on 150 mL's per hour. Patient very lethargic. The patient know where he is at. However he does not know the month or the year. S1-S2 present. Lungs clear to auscultate. Abdomen mildly tender. Able to move all extremities. Mild movement of right lower extremity secondary probable due o recent surgery. Attempted to reach POA by phone. Left a message for POA. Patient is a DNR CCA with no vasopressors. Discontinue PRN oxycodone. Of note patient received PRN oxycodone overnight. Oxycodone is home medication. Also patient received Lyrica overnight. Lyrica is home medication. Discontinue Lyrica. Patient is too lethargic to take any medication at this time. In any case okay consider stopping Flomax if blood pressure remains low. Consider starting midodrine when it is safe to start. CT head ordered for acute encephalopathy. STROKE Vital Signs/Narrative: Vital Signs Temp Pulse Resp BP Pulse Ox 11/24/19 05:00 97.3 F L 69 12 68/42 L 98 11/24/19 04:33 101 H 11/24/19 04:30 97.8 F 70 14 70/40 L 97 11/24/19 04:00 97.5 F L 72 15 120/44 L 99 11/24/19 03:00 97.6 F L 76 16 79/44 L 99
[2019-11-24 06:43] LABS: Lactic Acid 0.5 mmol/L (0.4-1.9)
--- NOTE | 2019-11-24 06:50 | NURSING ---
transferred to CT with this RN and CREDIT CARD ASSOCIATE
[2019-11-24 06:59] LABS: Ovalocyte RARE
[2019-11-24 07:02] LABS: Anion Gap 7 (5-15); BUN 25 mg/dL (7-18); Calcium,Total 7.4 mg/dL (8.5-10.1); Chloride 106 mmol/L (98-107); Creatinine, Serum 3.56 mg/dL (0.70-1.30); EST Glomerular Filtration Rate 19 mL/min (>60); Est Glom Filt Rate - Afr Amer 23 mL/min (>60); Estimated Creatinine Clearance 21.66 ml/min; Glucose 100 mg/dL (74-106); Potassium 3.7 mmol/L (3.5-5.1); Sodium Level 132 mmol/L (136-145); T4 Free Direct 0.68 ng/dL (0.76-1.46); Thyroid Stim Hormone (TSH) 0.91 uIU/mL (0.358-3.74)
--- NOTE | 2019-11-24 07:21 | NURSING ---
report given to DANG Winston in imaging for patient to remain in imaging for kidney/bladder US.
--- NOTE | 2019-11-24 07:50 | ECHOD_ITS ---
Reason For Study: heart failure Procedure This was a 2D Doppler, Color Flow transthoracic echocardiogram. The study was technically difficult. Due to body habitus and exam performed supine. Exam performed portable in ICU/CCU. Left Ventricle Normal LV size. Left ventricular systolic function is normal. The estimated ejection fraction is 65 %. Stage 2 diastolic dysfunction. No regional wall motion abnormalities noted. Right Ventricle Normal RV size. Normal systolic function. Atria Normal left atrium. Normal right atrium. Tricuspid Valve Normal tricuspid valve. Mild (1+) tricuspid valve insufficiency. Pulmonary artery systolic pressure is 30 mmHg. Aortic Valve Mild focal aortic valve calcification. Pulmonic Valve Normal pulmonic valve. Great Vessels Normal aortic root. The pulmonary artery is normal size. Normal inferior vena cava. Pericardium/Pleural No pericardial effusion. MMode/2D Measurements & Calculations LVIDd: 4.2 cm IVSd: 1.2 cm Ao root diam: 3.2 cm LVIDs: 3.1 cm LVPWd: 0.91 cm LA dimension: 3.1 cm RVDd: 4.0 cm FS: 26.4 % LAV(MOD-bp): 47.6 ml LA A4 area: 15.4 cm2 RA A4 area: 13.7 cm2 LAV(MOD-bp) Indexed: 25.1 ml/m2 LAV(MOD-sp2): 50.0 ml LAV(MOD-sp4): 43.8 ml Doppler Measurements & Calculations MV E max michael: 69.3 cm/sec Lat Peak E' Michael: 7.4 cm/sec Med Peak E' Michael: 8.1 cm/sec MV A max michael: 56.2 cm/sec E/E' lat: 9.3 E/E' med: 8.6 MV E/A: 1.2 Ao V2 max: 122.3 cm/sec LV V1 max: 78.4 cm/sec PA V2 max: 69.1 cm/sec Ao max P.0 mmHg LV V1 max P.5 mmHg TR max michael: 238.8 cm/sec TR max P.5 mmHg Interpretation Summary Normal LV size. Left ventricular systolic function is normal. The estimated ejection fraction is 65 %. Stage 2 diastolic dysfunction. Mild focal aortic valve calcification. Mild (1+) tricuspid valve insufficiency. Ordering Physician: Asher Mahmood Referring Physician: Zurdo Esparza Performed By: Tennille Middleton, LOREN, RVT
--- NOTE | 2019-11-24 07:53 | PCM.PN.HOSP ---
Reason for Visit: Follow-up hypotension, acute kidney injury, possible ATN, lethargic, seizure Objective: Overnight events noted. Discussed with the nighttime hospitalist Dr. Matias Antonio. Informed that patient was hypotensive last night, systolic in 70s to 80s and was given IV fluid boluses. Patient was also lethargic and progressively decline overnight. I talked to the patient regarding the CODE STATUS last evening during admission, he desired DNR CC arrest with no pressors or CVC catheter. Patient was alert, awake and oriented x3 at that time. Nighttime hospitalist called his next to kin his brother Mr. Carmine Givens and left a message but he did not return the call. In the morning I called again the patient's brother with no success. Subsequently I called his mother Ms. Heather alfaro [phone] and she desired vasopressor therapy in order to raise the blood pressure but maintain DNR CC arrest CODE STATUS. In the morning when I came patient was seen radiology department for ultrasound and CT head and then moved to the ICU. In the ICU, patient was more lethargic, hypotensive with IV fluid running at 150 mils per hour intermittent jerking motion of upper and lower extremity and trunk. Patient has a history of seizure in October 2019 thought to be metabolic secondary to hypocalcemia/metabolic etiology Discussed with water team leader. 1 mg IV Ativan, 5 mg IV Keppra and SOC neurology consult. Vitals/I&O's: Vital Signs Temp Pulse Resp BP Pulse Ox 97.3 F L 98 15 86/52 L 89 11/24/19 05:00 11/24/19 07:00 11/24/19 07:00 11/24/19 07:00 11/24/19 07:00 Oxygen Delivery Method Room Air Weight: 171 lb 15.369 oz Body Mass Index (BMI) 25.7 Intake and Output for Last 24 Hours 11/22/19 11/23/19 11/24/19 23:59 23:59 23:59 Intake Total 1745 / 1965 2975 / 2975 Output Total 750 / 750 Balance 1745 / 1215 2225 / 2225 General: Confused, Disoriented, Lethargic, - - Intermittent seizure-like activity HEENT: Atraumatic, Normocephalic, - - Pupils bilateral small sluggish reactive Oral: No Gingival or Mucosal Lesions/ Ulcerations, Dry Mucosa Neck: Supple, No JVD, Negative Carotid Bruits Lungs: Diminished - Air entry severely diminished in both lung, Short of Breath Cardiovascular: Regular Rhythm, Normal S1, Normal S2, No murmurs, Tachycardic Abdomen: Bowel Sounds Present, Soft, Non Tender, Non-Distended Extremities: Edema Musculoskeletal: Arthritic Changes, - - Right hip replacement. Neurological: - - Deep tendon reflexes in bilateral knees are, 3/4, lethargic, does not follow appropriate commands. Detailed neuro exam unobtainable Laboratory Results 11/23/19 16:00: WBC 8.5, RBC 3.25 L, Hgb 10.9 L, Hct 34.2 L, MCV 105.2 H, MCH 33.5 H, MCHC 31.9 L, RDW Std Deviation 69.9 H, RDW Coeff of Sophie 18.0 H, Plt Count 190, MPV 10.2, Immature Gran % (Auto) 0.900, Neut % (Auto) 74.3 H, Lymph % (Auto) 11.0 L, [place] % (Auto) 10.3 H, Eos % (Auto) 3.0, Baso % (Auto) 0.5, Absolute Neuts (auto) 6.3, Absolute Lymphs (auto) 0.94, Nucleated RBC % 0, Platelet Estimate ADEQUATE, Anisocytosis 1+, Macrocytosis 1+ 11/23/19 16:00: Sodium 131 L, Potassium 3.9, Chloride 99, Carbon Dioxide 22.0, Anion Gap 10, BUN 26 H, Creatinine 4.68 H, Estim Creat Clear Calc 16.48, Est GFR (MDRD) Af Amer 17 L, Est GFR (MDRD) Non-Af 14 L, BUN/Creatinine Ratio 5.6 L, Glucose 71 L, Calcium 8.7 11/23/19 16:00: Magnesium 1.5 L, Total Bilirubin 0.30, Direct Bilirubin 2.41 H, AST 20, ALT 13 L, Alkaline Phosphatase 110, Total Protein 6.9, Albumin 2.7 L, Globulin 4.2 11/23/19 20:55: POC Glucose 120 H 11/24/19 06:05: WBC 9.7, RBC 3.19 L, Hgb 10.7 L, Hct 33.4 L, MCV 104.7 H, MCH 33.5 H, MCHC 32.0, RDW Std Deviation 69.3 H, RDW Coeff of Sophie 17.8 H, Plt Count 176, MPV 10.1, Immature Gran % (Auto) 0.400, Neut % (Auto) 82.4 H, Lymph % (Auto) 8.8 L, [place] % (Auto) 5.7, Eos % (Auto) 2.5, Baso % (Auto) 0.2, Absolute Neuts (auto) 8.0 H, Absolute Lymphs (auto) 0.86, Nucleated RBC % 0, Ovalocytes RARE 11/24/19 06:05: Sodium 132 L, Potassium 3.7, Chloride 106, Carbon Dioxide 19.0 L, Anion Gap 7, BUN 25 H, Creatinine 3.56 H, Estim Creat Clear Calc 21.66, Est GFR (MDRD) Af Amer 23 L, Est GFR (MDRD) Non-Af 19 L, BUN/Creatinine Ratio 7.0 L, Glucose 100, Calcium 7.4 L, Phosphorus 6.0 H, TSH 0.91, Free T4 0.68 L 11/24/19 06:05: Hemoglobin A1c Pending 11/24/19 06:05: Lactic Acid 0.5 11/24/19 06:05: PT Pending, INR Pending Current Medications Acetaminophen (Tylenol) 650 mg PO Q6H PRN PRN PRN Reason: Pain Score 1-10/Temp > 100.7 F Albuterol Sulfate (Ventolin Aerosols) 2.5 mg INHALATION Q2H PRN PRN PRN Reason: SOB/Wheezing Calcium Carbonate (Tums) [facility] Ergocalciferol (Vitamin D) 50,000 unit PO [facility] Heparin Sodium (Porcine) (Heparin Na) 5,000 unit SC Q12 [facility] Last Admin: 11/23/19 20:55 Dose: 5,000 unit Documented by: Sodium Chloride () 250 mls @ 15 mls/hr IV .[id number] PRN PRN Reason: Saline Flush Sodium Chloride () 250 mls @ 15 mls/hr IV .[id number] PRN PRN Reason: Additional IVPB Infusion Norepinephrine Bitartrate 8 mg (/ Sodium Chloride) 250 mls @ 9.375 mls/hr CONT INF .[id number] [facility]; Protocol Sodium Chloride () 1,000 mls @ 100 mls/hr IV .Q10H [facility] Insulin Human Lispro (Humalog Kwikpen (Bkc)) 0 unit SC ACHS [facility]; Protocol Last Admin: 11/23/19 20:55 Dose: Not Given Documented by: Levothyroxine Sodium (Synthroid) 75 mcg PO DAILY@0600 [facility] Last Admin: 11/24/19 06:28 Dose: Not Given Documented by: Morphine Sulfate () 2 mg IV Q3H PRN PRN PRN Reason: Pain Score 6-10/10 Nitroglycerin (Nitrostat) 0.4 mg SUBLINGUAL Q5M PRN PRN Reason: CARDIAC/CHEST PAIN Promethazine HCl (Phenergan) 6.25 mg IV Q6H PRN PRN PRN Reason: NAUSEA/VOMITING Senna/Docusate Sodium (Senokot-S, Linda-Colace) 2 tablet PO BID PRN PRN PRN Reason: Constipation Sodium Chloride () 10 - 40 ml IV UD PRN PRN Reason: SALINE FLUSH Tamsulosin HCl (Flomax) 0.4 mg PO DAILY@1730 [facility] STROKE Vital Signs/Narrative: Vital Signs Temp Pulse Resp BP BP Pulse Ox 11/24/19 07:00 98 15 86/52 L 89 11/24/19 06:30 76/44 L 11/24/19 06:15 70/36 L 11/24/19 05:00 97.3 F L 69 12 68/42 L 98 11/24/19 04:33 101 H 11/24/19 04:30 97.8 F 70 14 70/40 L 97 11/24/19 04:00 97.5 F L 72 15 120/44 L 99 Medical Necessity - Tobacco Use Smoking Status: Current every day smoker Tobacco Use: Cigarettes Assessment/Plan All Active Problems (Last Reviewed 10/19/19 @ 14:[address] 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 Harper was sent from chemotherapy center after he was found acute kidney injury. Patient has noticed low blood pressure for 3 to 4 weeks with blood pressure, systolic running in 80s which used to be high, hypertension prior to chemo. 1. Acute kidney injury most probably prerenal/volume deficit/hypotension, with suspicion of ATN from prolonged hypotension/chemotherapy: Initially patient was admitted in PCU and then transferred to ICU. Patient also had EVERARDO on admission on October 09, 2019. 11/23: Urine lites shows FeNa1%, suggestive of prerenal but this was after hydration so possible ATN from prolonged hypotension. Kidney/bladder ultrasound results no evidence of hydronephrosis normal size and cortex of both kidneys. Incidental 1.5 cm left renal cyst. Discussed with the dietitian. 2. Hypotension, prolonged for about 1 month: Patient is transferred to ICU. Starting on Levophed. Firewall Engineer and dietitian consult. Monitor intake and output. Meza catheter inserted. Cosyntropin was done shows appropriate response. Hypernatremia ruled out. TSH 0.91, free T4 0.68 possible suggestive of euthyroid sick syndrome. 3. Acute hypoxic and hypercarbic respiratory failure, with altered mental status/acute metabolic encephalopathy: ABG shows 7.13/50 6/144 on 6 L nasal cannula. Patient was put on BiPAP. Being managed by water team leader. Patient has history of left lung metastatic adenocarcinoma history of radiation and current chemotherapy; being managed by Dr. Harper 4. Active seizure, most probably complex Seizure: History of seizure secondary to profound hypocalcemia during previous admission for closed right hip fracture with toxic/metabolic encephalopathy in October 2019. Patient was given Keppra 500 mg IV. EEG and SOC tele-neurology consult. 5.. Chronic normocytic normochromic anemia most probably secondary to neoplasm/chemotherapy and thrombocytopenia: H&H and platelet count is stable. 6.. Type 2 diabetes mellitus: Patient stated his blood sugar well controlled after diagnosis of cancer and chemotherapy most probably from weight loss: Glucose 71. Regular diet. 7. Hypertension not currently hypotension as mentioned above 8. Other comorbidities include major depression, history of QT prolongation, closed right hip fracture status post replacement, peripheral neuropathy, hypothyroidism, GERD, Breen's esophagus, chronic hepatitis C, chronic substance use/narcotic use: Multiple comorbidities complicates the present care and expect difficult and delay recovery. DVT prophylaxis: Heparin 5000 UNITS subcutaneous twice daily Total time of the visit including total time spent in counseling or coordination of care, (more than 50% of the total time, spent in obtaining medical information from nurses and other ancillary care providers), coordination with consultants, review of labs and imaging is 30 minutes Living will/advanced directive/end of life care: Patient does not have living will or advanced directive. After discussion of procedures involved with full code, DNR CC arrest and DNR CC, the patient opted for DNR-CC Arrest Patient does not want artificial life support including intubation, tube feed, ventilator and/chest compression, and DC shock if needed. After talking to patient's mother Ms. Romero, she desired vaso-pressor therapy for blood pressure support DNR CC arrest. Total time spent in [id number] encounter in discussion of advanced directive 16 minutes. Clinical Impression(s) from Imaging Studies Chest X-Ray 11/23/19 17:58 IMPRESSION: Left apical pleural thickening. Left apical airspace disease with air bronchograms noted. Degenerative changes of the thoracic spine. Findings appear similar allowing for differences in radiographic technique to the previous study of 10/21/2019. Renal Ultrasound 11/24/19 05:55 IMPRESSION: There is a 1.5 cm left renal cyst. There is no evidence of hydronephrosis. Brain CT 11/24/19 06:39 IMPRESSION: Chronic involutional changes of the brain. There is NO hemorrhage, edema, mass, mass effect or midline shift. Inpatient E&M: 40403 Subs Hosp L3
--- NOTE | 2019-11-24 07:56 | NURSING ---
Pt returned to room from CT, bladder/kidney ultrasound at 0730. BP 80/56. NS running at 150mL/hr. Unable to get accurate SpO2 reading, pt fingers cool to touch and has jerking movements of arms. Pt awakens to voice and states he is at [facility] but quickly falls back asleep and is mumbling incoherent phrases. Informed by charge that pt is to be transferred to ICU 6 and they are ready for him. Pt placed on 3L NC for comfort and transport to ICU. Steady accurate SpO2 waveform showed 88%, increased to 6L NC during transport. Pt to ICU 6 at 0745. Bedside report given to DANG Gamez.
[2019-11-24 08:07] LABS: Hemoglobin A1c 4.7 % (3.8-5.6)
[2019-11-24] MEDS: 0.9% Normal Saline 1,000 ML 100 ML IV ×2 (08:07→17:24)
[2019-11-24 08:11] LABS: Bedside Glucose 91 mg/dL (70-110)
--- NOTE | 2019-11-24 09:51 | PCM.CON.CC ---
Reason for Consult Date of Consultation: 11/24/19 Reason for Consultation: Hypotension/encephalopathy History of Present Illness: The patient is a 54-year-old male, with a history as outlined below, who presented to the emergency department on November 22 with abnormal laboratory work-up indicating the presence of acute kidney injury. The patient is currently being followed by Dr. Justus Harper of oncology due to a history of primary adenocarcinoma of the left lung. He is currently on maintenance therapy with Keytruda and Alimta. The patient was just recently admitted to the hospital in October 2019 with new onset seizure activity, right femoral neck fracture and anemia. The patient was discharged to the rehab unit, where he remained until October 30. It should be noted that all of the documented systolic pressures during his prior hospital stay and at the time of his discharge from the rehab unit were all greater than 100 mmHg. On presentation to the emergency department, the patient was noted to be hypotensive with a blood pressure of 80/52 mmHg. Laboratory evaluation revealed no evidence of a leukocytosis. Chemistry profile was notable for a sodium of 131 and creatinine of 4.68. The patient previously had a creatinine of 1.22 on October 30. Magnesium was low at 1.5. TSH was within normal limits. Chest x-ray revealed left apical pleural thickening and possible airspace disease, similar to previous chest imaging studies. The patient was administered supplemental IV fluids and admitted to the progressive care unit. Despite IV fluid resuscitation, the patient remained hypotensive over the course of the evening. Accordingly, on the morning of November 23, he was transferred to the medical intensive care unit for further management. History is quite difficult to elicit from the patient as he is quite lethargic. A CT head obtained this morning revealed chronic involutional changes of the brain. There was note of widening of the extra-axial spaces and ventricular dilation. 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 Steven Shrestha Vitamin D deficiency (Chronic) Adenocarcinoma of left lung (Chronic) with a metastatic lesion in the RUL Alcohol abuse (Chronic) Barretts esophagus (Chronic) Chronic hepatitis C (Chronic) Cannabis use, uncomplicated (Chronic) admits to 1 joint a day Medical History: Medical History (Last Reviewed 10/19/19 @ 14:[address] Tiffany Neewll, DO) DM2 (diabetes mellitus, type 2) E11.9 Non-small cell lung cancer C34.90 HTN (hypertension) I10 Allergies No Known Allergies Allergy (Verified 11/23/19 15:42) Home Medications: Ambulatory Orders Medication Instructions Recorded Citalopram [Celexa] 40 mg PO DAILY 12/15/16 Folic Acid 1 mg PO DAILY 08/25/19 Levothyroxine [Synthroid] 75 mcg PO DAILY 10/09/19 Omeprazole 40 mg PO DAILY 10/09/19 Atorvastatin Calcium [Lipitor] 40 mg PO QHS #30 tab 10/30/19 Calcium Carbonate [Tums] 500 mg PO BIDCM #60 tab 10/30/19 Lisinopril [Zestril] 5 mg PO DAILY #30 tab 10/30/19 Magnesium Chloride [Slow-Mag] 71.5 mg PO Q8H #90 tablet. 10/30/19 Pregabalin [Lyrica] 150 mg PO BID #60 cap 10/30/19 Quetiapine Fumarate [Seroquel] 300 mg PO QHS #30 tab 10/30/19 Tamsulosin HCl [Flomax] 0.4 mg PO DAILY@1730 #30 cap 10/30/19 Ergocalciferol [Vitamin D] 50,000 unit PO WE 11/23/19 Meloxicam 15 mg PO BID 11/23/19 Surgical History: noncontributory Psychiatric History: Bipolar - he tells me that he does not know if he is bipolar or not but, he thinks his mother is bipolar Smoking Status: Current every day smoker Tobacco Use: Cigarettes - *Family History Maternal History Items: - - no lung cancer. He thinks his mother is bipolar Review of Systems Unable to obtain accurate/complete ROS d/t: Due to degree of encephalopathy Objective: The patient's most recent lab work, culture data and imaging studies have all been personally reviewed. - Physical Exam Vitals/I&O's: Vital Signs Temp Pulse Resp BP Pulse Ox 97.3 F L 101 H 15 80/56 L 100 11/24/19 05:00 11/24/19 08:23 11/24/19 07:00 11/24/19 07:37 11/24/19 09:48 Oxygen Flow Rate (L/min) 6 Oxygen Delivery Method Nasal Cannula Weight: 171 lb 15.369 oz Body Mass Index (BMI) 25.7 Intake and Output for Last 24 Hours 11/22/19 11/23/19 11/24/19 23:59 23:59 23:59 Intake Total 1745 / 1965 3930 / 3930 Output Total 750 / 750 Balance 1745 / 1215 3180 / 3180 General: - - Somnolent but arousable to verbal stimulation. HEENT: Atraumatic, Normocephalic Oral: No Gingival or Mucosal Lesions/ Ulcerations Neck: Supple, No Nodes, Trachea Midline Lungs: No rhonchi, No wheeze, No rales, Diminished Cardiovascular: Normal S1, Normal S2, No murmurs, Tachycardic Abdomen: Bowel Sounds Present, Soft, Non Tender Extremities: No clubbing, No cyanosis, Edema Skin: No breakdown Musculoskeletal: No Muscle Wasting Neurological: - - No focal neurological deficits. Intermittent upper extremity tremors present. Labs (Last 48 Hours) 11/23/19 11/23/19 11/23/19 16:00 16:00 16:00 WBC 8.5 RBC 3.25 L Hgb 10.9 L Hct 34.2 L MCV 105.2 H MCH 33.5 H MCHC 31.9 L RDW Std Deviation 69.9 H RDW Coeff of Sophie 18.0 H Plt Count 190 MPV 10.2 Immature Gran % (Auto) 0.900 Neut % (Auto) 74.3 H Lymph % (Auto) 11.0 L [place] % (Auto) 10.3 H Eos % (Auto) 3.0 Baso % (Auto) 0.5 Absolute Neuts (auto) 6.3 Absolute Lymphs (auto) 0.94 Nucleated RBC % 0 Platelet Estimate ADEQUATE Anisocytosis 1+ Macrocytosis 1+ Ovalocytes PT INR Sodium 131 L Potassium 3.9 Chloride 99 Carbon Dioxide 22.0 Anion Gap 10 BUN 26 H Creatinine 4.68 H Estim Creat Clear Calc 16.48 Est GFR (MDRD) Af Amer 17 L Est GFR (MDRD) Non-Af 14 L BUN/Creatinine Ratio 5.6 L Glucose 71 L Hemoglobin A1c Lactic Acid Calcium 8.7 Phosphorus Magnesium 1.5 L Total Bilirubin 0.30 Direct Bilirubin 2.41 H AST 20 ALT 13 L Alkaline Phosphatase 110 B-Natriuretic Peptide Total Protein 6.9 Albumin 2.7 L Globulin 4.2 TSH Free T4 POC Glucose 11/23/19 11/24/19 11/24/19 20:55 06:05 06:05 WBC 9.7 RBC 3.19 L Hgb 10.7 L Hct 33.4 L MCV 104.7 H MCH 33.5 H MCHC 32.0 RDW Std Deviation 69.3 H RDW Coeff of Sophie 17.8 H Plt Count 176 MPV 10.1 Immature Gran % (Auto) 0.400 Neut % (Auto) 82.4 H Lymph % (Auto) 8.8 L [place] % (Auto) 5.7 Eos % (Auto) 2.5 Baso % (Auto) 0.2 Absolute Neuts (auto) 8.0 H Absolute Lymphs (auto) 0.86 Nucleated RBC % 0 Platelet Estimate Anisocytosis Macrocytosis Ovalocytes RARE PT INR Sodium 132 L Potassium 3.7 Chloride 106 Carbon Dioxide 19.0 L Anion Gap 7 BUN 25 H Creatinine 3.56 H Estim Creat Clear Calc 21.66 Est GFR (MDRD) Af Amer 23 L Est GFR (MDRD) Non-Af 19 L BUN/Creatinine Ratio 7.0 L Glucose 100 Hemoglobin A1c Lactic Acid Calcium 7.4 L Phosphorus 6.0 H Magnesium Total Bilirubin Direct Bilirubin AST ALT Alkaline Phosphatase B-Natriuretic Peptide Total Protein Albumin Globulin TSH 0.91 Free T4 0.68 L POC Glucose 120 H 11/24/19 11/24/19 11/24/19 06:05 06:05 06:05 WBC RBC Hgb Hct MCV MCH MCHC RDW Std Deviation RDW Coeff of Sophie Plt Count MPV Immature Gran % (Auto) Neut % (Auto) Lymph % (Auto) [place] % (Auto) Eos % (Auto) Baso % (Auto) Absolute Neuts (auto) Absolute Lymphs (auto) Nucleated RBC % Platelet Estimate Anisocytosis Macrocytosis Ovalocytes PT 13.0 INR 1.0 Sodium Potassium Chloride Carbon Dioxide Anion Gap BUN Creatinine Estim Creat Clear Calc Est GFR (MDRD) Af Amer Est GFR (MDRD) Non-Af BUN/Creatinine Ratio Glucose Hemoglobin A1c 4.7 Lactic Acid 0.5 Calcium Phosphorus Magnesium Total Bilirubin Direct Bilirubin AST ALT Alkaline Phosphatase B-Natriuretic Peptide Total Protein Albumin Globulin TSH Free T4 POC Glucose 11/24/19 11/24/19 08:07 08:10 WBC RBC Hgb Hct MCV MCH MCHC RDW Std Deviation RDW Coeff of Sophie Plt Count MPV Immature Gran % (Auto) Neut % (Auto) Lymph % (Auto) [place] % (Auto) Eos % (Auto) Baso % (Auto) Absolute Neuts (auto) Absolute Lymphs (auto) Nucleated RBC % Platelet Estimate Anisocytosis Macrocytosis Ovalocytes PT INR Sodium Potassium Chloride Carbon Dioxide Anion Gap BUN Creatinine Estim Creat Clear Calc Est GFR (MDRD) Af Amer Est GFR (MDRD) Non-Af BUN/Creatinine Ratio Glucose Hemoglobin A1c Lactic Acid Calcium Phosphorus Magnesium Total Bilirubin Direct Bilirubin AST ALT Alkaline Phosphatase B-Natriuretic Peptide 267.0 H Total Protein Albumin Globulin TSH Free T4 POC Glucose 91 Clinical Impression(s) from Imaging Studies Chest X-Ray 11/23/19 17:58 IMPRESSION: Left apical pleural thickening. Left apical airspace disease with air bronchograms noted. Degenerative changes of the thoracic spine. Findings appear similar allowing for differences in radiographic technique to the previous study of 10/21/2019. Electronically Signed: Monroe Henderson MD at 22:34 EDT , Service support , Brain CT 11/24/19 06:39 IMPRESSION: Chronic involutional changes of the brain. There is NO hemorrhage, edema, mass, mass effect or midline shift. Electronically Signed: Ken Allen MD at 7:19 EDT , Service support , Current Medications Acetaminophen (Tylenol) 650 mg PO Q6H PRN PRN PRN Reason: Pain Score 1-10/Temp > 100.7 F Albuterol Sulfate (Ventolin Aerosols) 2.5 mg INHALATION Q2H PRN PRN PRN Reason: SOB/Wheezing Calcium Carbonate (Tums) 500 mg PO BIDCM [facility] Last Admin: 11/24/19 08:03 Dose: Not Given Documented by: Ergocalciferol (Vitamin D) 50,000 unit PO WE [facility] Heparin Sodium (Porcine) (Heparin Na) 5,000 unit SC Q12 [facility] Last Admin: 11/23/19 20:55 Dose: 5,000 unit Documented by: Sodium Chloride () 250 mls @ 15 mls/hr IV .[id number] PRN PRN Reason: Saline Flush Sodium Chloride () 250 mls @ 15 mls/hr IV .[id number] PRN PRN Reason: Additional IVPB Infusion Norepinephrine Bitartrate 8 mg (/ Sodium Chloride) 250 mls @ 9.375 mls/hr CONT INF .[id number] [facility]; Protocol Sodium Chloride () 1,000 mls @ 100 mls/hr IV .Q10H [facility] Last Admin: 11/24/19 08:07 Dose: 100 mls/hr Documented by: Pantoprazole Sodium 40 mg/ (Sodium Chloride) 110 mls @ 330 mls/hr IV Q24 [facility] Insulin Human Lispro (Humalog Kwikpen (Bkc)) 0 unit SC ACHS [facility]; Protocol Last Admin: 11/24/19 08:08 Dose: Not Given Documented by: Levothyroxine Sodium (Synthroid) 75 mcg PO DAILY@0600 [facility] Last Admin: 11/24/19 06:28 Dose: Not Given Documented by: Nitroglycerin (Nitrostat) 0.4 mg SUBLINGUAL Q5M PRN PRN Reason: CARDIAC/CHEST PAIN Promethazine HCl (Phenergan) 6.25 mg IV Q6H PRN PRN PRN Reason: NAUSEA/VOMITING Senna/Docusate Sodium (Senokot-S, Linda-Colace) 2 tablet PO BID PRN PRN PRN Reason: Constipation Sodium Chloride () 10 - 40 ml IV UD PRN PRN Reason: SALINE FLUSH Tamsulosin HCl (Flomax) 0.4 mg PO DAILY@1730 [facility] Assessment/Plan RECOMMENDATIONS: 1. Additional supplemental IV fluid hydration as tolerated. 2. Place central venous catheter should vasopressor support be required. 3. Perform cosyntropin stimulation test to assess for adrenal insufficiency. 4. Renal ultrasound. Nephrology consultation is pending. 5. Discontinue morphine. 6. Administer IV magnesium replacement. 7. Obtain arterial blood gas. IMPRESSIONS: 1. Acute kidney injury Likely prerenal in etiology and related to hemodynamic instability. Nephrology is currently following. Renal ultrasound is pending. Meza catheter to be placed. Will monitor urine output accordingly. No current indication for renal replacement therapy. 2. Hypotension Unclear etiology. Concern for hypovolemic versus distributive etiologies. At the present time, the patient is not demonstrating any systemic signs of infection. However, will obtain cultures, nonetheless. Continue gentle IV fluid hydration. Central venous catheter will be placed to facilitate administration of vasopressor therapy, if clinically indicated. Cosyntropin stimulation test will be completed to assess for adrenal insufficiency. 3. Encephalopathy Likely metabolic in nature. The patient does have a history of seizures. I do not suspect that he is actively seizing, as he is arousable and able to answer questions. Recommend neurology consultation. We will also check hepatic function profile and ammonia. Arterial blood gas will also be obtained. Continue to withhold sedating medications. 4. Hypomagnesemia Electrolyte repletion as ordered. Recheck levels in the morning. 5. History of seizures During the patient's prior hospitalization, he did experience new onset seizure activity, felt to be secondary to electrolyte derangements, including hypocalcemia. 6. Anemia/history of left Pancoast tumor/non-small cell lung cancer/tobacco dependency/GERD/diabetes mellitus Complicates care, management, recovery and prognosis. This note was generated with Down dictation software. It may contain incorrect words, spelling, and punctuation that were not noted in checking the note before signing. Inpatient E&M: 67920 Init Hosp L3
[2019-11-24] MEDS: Cosyntropin 0.25 MG in 0.9% Normal Saline (Pres. free 1 ML 30 MG IV (10:12)
--- NOTE | 2019-11-24 10:27 | CON.PCM_ITS ---
Reason for Consult Date of Consultation: 11/24/19 Reason for Consultation: everardo History of Present Illness: The patient is a 54 year old M with a past medical history of adenocarcinoma of the left lung with metastatic lesions in the right upper lobe was referred for admission from the chemotherapy center after he was found to have acute kidney injury. The patient had hypotension for about 3 4 weeks prior to admission with a systolic running in the 80s. History of hypertension prior to chemo. As per records the patient had no change in the urine output he denies dysuria hematuria or increased frequency or urgency. His initial creatinine was 4.6 with a creatinine in the 3 range today after IV fluid resuscitation. His blood pressure is still in the 80s systolic with a diastolic in the 50s on admission. He had normal serum creatinine earlier this year. The patient currently currently is confused and placed on BiPAP for hypercapnia and cannot provide review of systems. All the data is obtained from the review of the chart. 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 Steven Shrestha Vitamin D deficiency (Chronic) Adenocarcinoma of left lung (Chronic) with a metastatic lesion in the RUL Alcohol abuse (Chronic) Barretts esophagus (Chronic) Chronic hepatitis C (Chronic) Cannabis use, uncomplicated (Chronic) admits to 1 joint a day Medical History: Medical History (Last Reviewed 10/19/19 @ 14:[address] Tiffany Newell DO) DM2 (diabetes mellitus, type 2) E11.9 Non-small cell lung cancer C34.90 HTN (hypertension) I10 Allergies No Known Allergies Allergy (Verified 11/23/19 15:42) Home Medications: Ambulatory Orders Medication Instructions Recorded Citalopram [Celexa] 40 mg PO DAILY 12/15/16 Folic Acid 1 mg PO DAILY 08/25/19 Levothyroxine [Synthroid] 75 mcg PO DAILY 10/09/19 Omeprazole 40 mg PO DAILY 10/09/19 Atorvastatin Calcium [Lipitor] 40 mg PO QHS #30 tab 10/30/19 Calcium Carbonate [Tums] 500 mg PO BIDCM #60 tab 10/30/19 Lisinopril [Zestril] 5 mg PO DAILY #30 tab 10/30/19 Magnesium Chloride [Slow-Mag] 71.5 mg PO Q8H #90 tablet. 10/30/19 Pregabalin [Lyrica] 150 mg PO BID #60 cap 10/30/19 Quetiapine Fumarate [Seroquel] 300 mg PO QHS #30 tab 10/30/19 Tamsulosin HCl [Flomax] 0.4 mg PO DAILY@1730 #30 cap 10/30/19 Ergocalciferol [Vitamin D] 50,000 unit PO WE 11/23/19 Meloxicam 15 mg PO BID 11/23/19 Surgical History: noncontributory Psychiatric History: Bipolar - he tells me that he does not know if he is bipolar or not but, he thinks his mother is bipolar Smoking Status: Current every day smoker Tobacco Use: Cigarettes - *Family History Maternal History Items: - - no lung cancer. He thinks his mother is bipolar - Physical Exam Vitals/I&O's: Vital Signs Temp Pulse Resp BP Pulse Ox 97.3 F L 101 H 15 80/56 L 100 11/24/19 05:00 11/24/19 08:23 11/24/19 07:00 11/24/19 07:37 11/24/19 09:48 Oxygen Flow Rate (L/min) 6 Oxygen Delivery Method Nasal Cannula Weight: 78 kg Body Mass Index (BMI) 25.7 Intake and Output for Last 24 Hours 11/22/19 11/23/19 11/24/19 23:59 23:59 23:59 Intake Total 1745 / 1965 3931 / 3931 Output Total 750 / 750 Balance 1745 / 1215 3181 / 3181 General: Alert HEENT: Atraumatic, Normocephalic Neck: Trachea Midline Lungs: Clear to auscultation, Normal air movement Cardiovascular: Regular rate, Regular Rhythm, Normal S1, Normal S2 Abdomen: Bowel Sounds Present, Soft Extremities: No clubbing Skin: No rashes Neurological: - - confused not answering questions Laboratory Results 11/23/19 16:00: WBC 8.5, RBC 3.25 L, Hgb 10.9 L, Hct 34.2 L, MCV 105.2 H, MCH 33.5 H, MCHC 31.9 L, RDW Std Deviation 69.9 H, RDW Coeff of Sophie 18.0 H, Plt Count 190, MPV 10.2, Immature Gran % (Auto) 0.900, Neut % (Auto) 74.3 H, Lymph % (Auto) 11.0 L, [place] % (Auto) 10.3 H, Eos % (Auto) 3.0, Baso % (Auto) 0.5, Absolute Neuts (auto) 6.3, Absolute Lymphs (auto) 0.94, Nucleated RBC % 0, P latelet Estimate ADEQUATE, Anisocytosis 1+, Macrocytosis 1+ 11/23/19 16:00: Sodium 131 L, Potassium 3.9, Chloride 99, Carbon Dioxide 22.0, Anion Gap 10, BUN 26 H, Creatinine 4.68 H, Estim Creat Clear Calc 16.48, Est GFR (MDRD) Af Amer 17 L, Est GFR (MDRD) Non-Af 14 L, BUN/Creatinine Ratio 5.6 L, Glucose 71 L, Calcium 8.7 11/23/19 16:00: Magnesium 1.5 L, Total Bilirubin 0.30, Direct Bilirubin 2.41 H, AST 20, ALT 13 L, Alkaline Phosphatase 110, Total Protein 6.9, Albumin 2.7 L, Globulin 4.2 11/23/19 20:55: POC Glucose 120 H 11/24/19 06:05: WBC 9.7, RBC 3.19 L, Hgb 10.7 L, Hct 33.4 L, MCV 104.7 H, MCH 33.5 H, MCHC 32.0, RDW Std Deviation 69.3 H, RDW Coeff of Sophie 17.8 H, Plt Count 176, MPV 10.1, Immature Gran % (Auto) 0.400, Neut % (Auto) 82.4 H, Lymph % (Auto) 8.8 L, [place] % (Auto) 5.7, Eos % (Auto) 2.5, Baso % (Auto) 0.2, Absolute Neuts (auto) 8.0 H, Absolute Lymphs (auto) 0.86, Nucleated RBC % 0, Ovalocytes RARE 11/24/19 06:05: Sodium 132 L, Potassium 3.7, Chloride 106, Carbon Dioxide 19.0 L , Anion Gap 7, BUN 25 H, Creatinine 3.56 H, Estim Creat Clear Calc 21.66, Est GFR (MDRD) Af Amer 23 L, Est GFR (MDRD) Non-Af 19 L, BUN/Creatinine Ratio 7.0 L, Glucose 100, Calcium 7.4 L, Phosphorus 6.0 H, TSH 0.91, Free T4 0.68 L 11/24/19 06:05: Hemoglobin A1c 4.7 11/24/19 06:05: Lactic Acid 0.5 11/24/19 06:05: PT 13.0, INR 1.0 11/24/19 08:07: POC Glucose 91 11/24/19 08:10: B-Natriuretic Peptide 267.0 H 11/24/19 10:10: Cortisol Pending Current Medications Acetaminophen (Tylenol) 650 mg PO Q6H PRN PRN PRN Reason: Pain Score 1-10/Temp > 100.7 F Albuterol Sulfate (Ventolin Aerosols) 2.5 mg INHALATION Q2H PRN PRN PRN Reason: SOB/Wheezing Calcium Carbonate (Tums) 500 mg PO BIDCM [facility] Last Admin: 11/24/19 08:03 Dose: Not Given Documented by: Ergocalciferol (Vitamin D) 50,000 unit PO [facility] Heparin Sodium (Porcine) (Heparin Na) 5,000 unit SC Q12 [facility] Last Admin: 11/23/19 20:55 Dose: 5,000 unit Documented by: Sodium Chloride () 250 mls @ 15 mls/hr IV .[id number] PRN PRN Reason: Saline Flush Sodium Chloride () 250 mls @ 15 mls/hr IV .[id number] PRN PRN Reason: Additional IVPB Infusion Norepinephrine Bitartrate 8 mg (/ Sodium Chloride) 250 mls @ 9.375 mls/hr CONT INF .[id number] [facility]; Protocol Sodium Chloride () 1,000 mls @ 100 mls/hr IV .Q10H [facility] Last Admin: 11/24/19 08:07 Dose: 100 mls/hr Documented by: Pantoprazole Sodium 40 mg/ (Sodium Chloride) 110 mls @ 330 mls/hr IV Q24 [facility] Magnesium Sulfate 2 gm/ Sodium (Chloride) 104 mls @ 52 mls/hr IV X1 ONE Stop: 11/24/19 12:03 Insulin Human Lispro (Humalog Kwikpen (Bkc)) 0 unit SC ACHS [facility]; Protocol Last Admin: 11/24/19 08:08 Dose: Not Given Documented by: Levothyroxine Sodium (Synthroid) 75 mcg PO DAILY@0600 [facility] Last Admin: 11/24/19 06:28 Dose: Not Given Documented by: Nitroglycerin (Nitrostat) 0.4 mg SUBLINGUAL Q5M PRN PRN Reason: CARDIAC/CHEST PAIN Promethazine HCl (Phenergan) 6.25 mg IV Q6H PRN PRN PRN Reason: NAUSEA/VOMITING Senna/Docusate Sodium (Senokot-S, Linda-Colace) 2 tablet PO BID PRN PRN PRN Reason: Constipation Sodium Chloride () 10 - 40 ml IV UD PRN PRN Reason: SALINE FLUSH Tamsulosin HCl (Flomax) 0.4 mg PO DAILY@1730 [facility] Assessment/Plan All Active Problems (Last Reviewed 10/19/19 @ 14:[address] Tiffany Newell DO) Chronic diarrhea (Resolved) History of illicit drug use (Resolved) Iron deficiency anemia (Resolved) VEERARDO likely ATN with prolonged hypotension Hyponatremia Lower extremity edema Hypotension hyperphosphatemia Metastatic lung adenocarcinoma s/p chemotherapy with immune checkpoint inhibitors Scr 3.5 much better Unclear UOP will place Meza for 24 hours to evaluate UOP then reevaluate need for Meza catheter Follow-up renal ultrasound Check a UA and FENA further w/u per clinical course keep MAP>65 levophed will be started cosyntropin test ordered and also 2D echo d/w dr. Mahmood and dr. Castillo Thanks for consult will f/u
[2019-11-24] MEDS: Heparin Injection (Vial) 5,000 UNIT/ML VIAL 5000 UNIT SC ×2 (10:32→21:28)
[2019-11-24 10:47] LABS: AST(SGOT) 19 U/L (15-37); Alanine Aminotransfer ALT/SGPT 11 U/L (16-61); Alkaline Phosphatase 96 U/L (45-117); Bilirubin, Direct 0.89 mg/dL (0.00-0.30); Globulin 3.6 g/dL (2.2-4.2); Protein, Total 5.6 g/dL (6.4-8.2)
[2019-11-24 10:51] LABS: Base Excess -10 mmol/L (-2 to +2); Bicarbonate 18.8 mmol/L (22-26); PO2 144 mmHG (75-100); SO2 98 % (95-99); Total Carbon Dioxide 20 mmol/L; pCO2 56.3 mmHg (35-45); pH 7.13 (7.35-7.45)
[2019-11-24 10:52] LABS: Blood Gas Specimen Type ART; O2 Delivery Device Nasal Can; SITE L RADIAL; Time Given 1011
--- NOTE | 2019-11-24 10:59 | CPS ---
CRITICAL VALUE CALLED TO DR. PENNY.
--- NOTE | 2019-11-24 11:07 | CASEMGMT ---
DANG VALENTIN assessment deferred at this time d/t pt confusion with a GCS of 13 at this time. Pt was transferred to ICU this am from PCU for hypotension/confusion/lethargy. Pt was recently discharged from the [facility] inpt rehab unit on 10/31/2019 s/p right hip fracture. As a reference, see assessment completed by Carmelo LEONG CM on 10/10/2019. Pt does have CM, Yoselyn Henderson, thru [facility] and gets aides/meals thru this service. CM to follow for PT/OT evals and further discharge planning/needs. SStbrodie LEONG CM
[2019-11-24 11:22] LABS: Mucous, Urine 0 SEEN /hpf (<or=2+); Red Blood Cells-Urine 0 SEEN /hpf (0-5); Squamous Epithelial Cells - UA 0 SEEN /hpf (0-5); White Blood Cells 0 SEEN /hpf (0-5)
[2019-11-24 11:24] LABS: Color, Urine Yellow (Yellow); Glucose, Dipstick Normal (Normal); Ketone-Dipstick Negative (Negative); Leukocyte Esterase-Dipstick Negative /ul (Negative); Nitrite-Dipstick Negative (Negative); Occult Blood-Urine Negative /ul (Negative); Protein-Dipstick 15 mg/dl (Negative); Specific Gravity, Urine 1.015 (1.002-1.030); Urine Bilirubin Dipstick Negative (Negative); Urine Clarity Sl. Cloudy (Clear); Urine Urobilinogen 1 mg/dl (Normal)
[2019-11-24 11:33] LABS: Urine Sodium 31 mmol/L (Not Establ.)
[2019-11-24 11:35] LABS: Bacteria RARE /hpf (None Seen); Hyaline Cast 0-5 SEEN /lpf (0-5)
--- NOTE | 2019-11-24 12:21 | RAD_ITS ---
STUDY: X-RAY CHEST REASON FOR EXAM: Male, 54 years old. LINE PLACEMENT TECHNIQUE: Single AP portable view of the chest. COMPARISON: November 23, 2019 FINDINGS: Central catheter on the right extends to the lower superior vena cava. There are monitoring devices. There is stable left upper chest opacity with consolidation and apical pleural thickening. There is lower lung atelectasis. There is no demonstrated pleural abnormality. Normal size heart. Normal mediastinum and [place]. Normal visualized pulmonary arteries. Normal visualized aortic arch and descending thoracic aorta. There are diffuse degenerative changes of the visualized thoracic spine. Normal visualized ribs, clavicles, and shoulders. There is no demonstrated abnormality of the visualized soft tissue structures of the upper abdomen. RAD/CXR for Line Placement IMPRESSION: Central catheter placement. No pneumothorax. Stable left upper lung consolidation. Increasing lower lung infiltrates or edema. Electronically Signed: Joel Mclaughlin MD at 13:50 EDT , Service support ,
--- NOTE | 2019-11-24 12:29 | PCM.OPRPT ---
Report of Operation Date of Procedure: 11/24/19 Surgery/Procedure Performed:: Triple-lumen catheter placement Description of Surgical Findings:: Central line placement procedure note Indication: IV access/hemodynamic instability/vasoactive medications Procedure: A time-out was completed to verify correct patient, indication, medication allergies, procedure, coagulation studies, informed consent signed, and equipment needed. The patient was placed in the supine position for a central line placement to the rt IJ vein. The patients rt neck was prepped using chlorhexidine and a full body sterile drape was applied. 1% lidocaine was used to anesthetize the surrounding skin. A 7fr 16 cm blue guard triple lumen catheter introduced into the internal jugular vein using the modified Seldinger technique with the assistance of ultrasound. The catheter was threaded smoothly over the guidewire, the guidewire was removed easily, nonpulsatile blood returned. All ports were aspirated of air and flushed with sterile saline. The catheter was sutured in place and covered with an occlusive dressing impregnated with chlorhexidine. Post-procedure: The patient tolerated the procedure well. Vital signs remained stable. EBL 3 cc. No complications. Chest X Ray ordered to confirm tip placement and the absence of pneumothorax. Procedures: [id number] Insert Non-tunnel CV Cath
[2019-11-24 12:36] LABS: Bedside Glucose 93 mg/dL (70-110)
--- NOTE | 2019-11-24 13:22 | CPS ---
pt was taken off bipap for EEG. placed on 3l NC.
--- NOTE | 2019-11-24 14:53 | CASEMGMT ---
Addendum entered by Brittni Weeks 11/24/19 15:49: SW received message from Destiny at [facility] stating pt is active with Palliative Care. Original Note: Social Work Note SW reviewed notes. Pt has CM Yoselyn Henderson through [facility]. Per previous notes from previous visits pt gets 7 meals per week and 2 hrs/day, M-T-F of aides through a private agency. MARTY placed a call to Yoselyn Henderson at [facility] and left message updating her on pt's admission to [facility]. When pt was on RU, a Palliative Care referral was made. MARTY placed a call to Palliative office at [facility] and left message asking if pt is active with Palliative services. SW waiting for call back. Brittni Weeks FINANCIAL RECRUITER, AD CLERK
[2019-11-24] MEDS: TITRATION PARAMETER CHANGE 1 EACH IV (15:30)
[2019-11-24 17:30] LABS: Bedside Glucose 90 mg/dL (70-110)
--- NOTE | 2019-11-24 19:05 | CPS ---
Pt.'s FiO2 titrated down to 28%
--- NOTE | 2019-11-24 19:10 | NURSING ---
SOC Dr. callejas in at this time, RN at bedside.
[2019-11-24 21:31] LABS: Bedside Glucose 99 mg/dL (70-110)
[2019-11-25] VITALS (45 sets, daily range): BP systolic 64–142; BP diastolic 38–110; PULSE 66–96; RESP 12–29; TEMP 36.6–37.7; O2SAT 91–100
--- NOTE | 2019-11-25 02:14 | NURSING ---
pt more drowsy, disoriented, respiratory at bedside, will place bipap.
[2019-11-25] MEDS: 0.9% Normal Saline 1,000 ML 100 ML IV (03:17)
--- NOTE | 2019-11-25 06:03 | PCM.PN.INT ---
Subjective: The patient was seen and examined at the bedside this morning. Events from the last 24 hours have been reviewed. The patient is currently afebrile. He remains on Levophed at 5 mcg/min to maintain hemodynamic stability. Neurology consultation was obtained yesterday. They felt that the patient's myoclonic jerking was due to metabolic derangements from his kidney dysfunction. They did not feel that seizure medications were warranted. Overnight, the patient did become lethargic and was therefore placed back on BiPAP therapy. He is significantly more alert and interactive this morning. He currently denies the presence of shortness of breath. He does report active, ongoing tobacco dependency. He has never been formally diagnosed with COPD and states that he does not currently utilize inhalers at his baseline. The patient's creatinine has improved this morning to 1.92. Urine output is good. Objective: The patient's most recent lab work, culture data and imaging studies have all been personally reviewed. Surface echocardiogram revealed normal LV size and function with an ejection fraction of 65%. Stage II diastolic dysfunction was noted. Renal ultrasound was largely unrevealing. There was no evidence of hydronephrosis. General: Alert, Cooperative, No apparent distress, - - Alert and oriented to person and place. HEENT: Atraumatic, PERRLA, Normocephalic Oral: No Gingival or Mucosal Lesions/ Ulcerations Neck: Supple, No Nodes, Trachea Midline Lungs: No rhonchi, No wheeze, No rales, Diminished Cardiovascular: Regular rate, Regular Rhythm, Normal S1, Normal S2 Abdomen: Bowel Sounds Present, Soft, Non Tender Extremities: No clubbing, No cyanosis Skin: - - No significant change from previous Musculoskeletal: No Muscle Wasting Lymphatic: No Cervical, Supraclavicular, or Inguinal Adenopathy Neurological: - - No focal neurological deficits. Alert and appropriately conversive. Psych/Mental Status: Normal Affect Vital Signs Temp Pulse Resp BP Pulse Ox 97.9 F 81 15 98/55 L 94 11/25/19 00:00 11/25/19 05:29 11/25/19 05:29 11/25/19 03:00 11/25/19 05:29 Oxygen Flow Rate (L/min) 2 Oxygen Delivery Method Bi-pap Weight: 168 lb 3.403 oz Body Mass Index (BMI) 25.7 Intake and Output for Last 24 Hours 11/23/19 11/24/19 11/25/19 23:59 23:59 23:59 Intake Total 174 / 1965 5111.25 / 5111.25 1001.26 / 1001.26 Output Total 3975 / 3975 Balance 1745 / 1215 1136.25 / 1136.25 1001.26 / 1001.26 Labs (Last 48 Hours) 11/23/19 11/23/19 11/23/19 16:00 16:00 16:00 WBC 8.5 RBC 3.25 L Hgb 10.9 L Hct 34.2 L MCV 105.2 H MCH 33.5 H MCHC 31.9 L RDW Std Deviation 69.9 H RDW Coeff of Sophie 18.0 H Plt Count 190 MPV 10.2 Immature Gran % (Auto) 0.900 Neut % (Auto) 74.3 H Lymph % (Auto) 11.0 L Colleton % (Auto) 10.3 H Eos % (Auto) 3.0 Baso % (Auto) 0.5 Absolute Neuts (auto) 6.3 Absolute Lymphs (auto) 0.94 Nucleated RBC % 0 Platelet Estimate ADEQUATE Anisocytosis 1+ Macrocytosis 1+ Ovalocytes PT INR Specimen Type Sample Site pH Bicarbonate Actual POC Total CO2 Base Excess O2 Saturation ABG pCO2 ABG pO2 O2 Delivery Device Liter Flow Blood Gas Notified Whom Blood Gas Notified Time Sodium 131 L Potassium 3.9 Chloride 99 Carbon Dioxide 22.0 Anion Gap 10 BUN 26 H Creatinine 4.68 H Estim Creat Clear Calc 16.48 Est GFR (MDRD) Af Amer 17 L Est GFR (MDRD) Non-Af 14 L BUN/Creatinine Ratio 5.6 L Glucose 71 L Hemoglobin A1c Lactic Acid Calcium 8.7 Phosphorus Magnesium 1.5 L Total Bilirubin 0.30 Direct Bilirubin 2.41 H AST 20 ALT 13 L Alkaline Phosphatase 110 Ammonia B-Natriuretic Peptide Total Protein 6.9 Albumin 2.7 L Globulin 4.2 TSH Free T4 Cortisol Urine Color Urine Clarity Urine pH Ur Specific Boykins Urine Protein Urine Glucose (UA) Urine Ketones Urine Occult Blood Urine Nitrite Urine Bilirubin Urine Urobilinogen Ur Leukocyte Esterase Urine RBC Urine WBC Ur Squamous Epith Cells Urine Bacteria Hyaline Casts Urine Mucus Ur Random Sodium Urine Creatinine POC Glucose 11/23/19 11/24/19 11/24/19 20:55 06:05 06:05 WBC 9.7 RBC 3.19 L Hgb 10.7 L Hct 33.4 L MCV 104.7 H MCH 33.5 H MCHC 32.0 RDW Std Deviation 69.3 H RDW Coeff of Sophie 17.8 H Plt Count 176 MPV 10.1 Immature Gran % (Auto) 0.400 Neut % (Auto) 82.4 H Lymph % (Auto) 8.8 L Col[place] % (Auto) 5.7 Eos % (Auto) 2.5 Baso % (Auto) 0.2 Absolute Neuts (auto) 8.0 H Absolute Lymphs (auto) 0.86 Nucleated RBC % 0 Platelet Estimate Anisocytosis Macrocytosis Ovalocytes RARE PT INR Specimen Type Sample Site pH Bicarbonate Actual POC Total CO2 Base Excess O2 Saturation ABG pCO2 ABG pO2 O2 Delivery Device Liter Flow Blood Gas Notified Whom Blood Gas Notified Time Sodium 132 L Potassium 3.7 Chloride 106 Carbon Dioxide 19.0 L Anion Gap 7 BUN 25 H Creatinine 3.56 H Estim Creat Clear Calc 21.66 Est GFR (MDRD) Af Amer 23 L Est GFR (MDRD) Non-Af 19 L BUN/Creatinine Ratio 7.0 L Glucose 100 Hemoglobin A1c Lactic Acid Calcium 7.4 L Phosphorus 6.0 H Magnesium Total Bilirubin Direct Bilirubin AST ALT Alkaline Phosphatase Ammonia B-Natriuretic Peptide Total Protein Albumin Globulin TSH 0.91 Free T4 0.68 L Cortisol Urine Color Urine Clarity Urine pH Ur Specific Boykins Urine Protein Urine Glucose (UA) Urine Ketones Urine Occult Blood Urine Nitrite Urine Bilirubin Urine Urobilinogen Ur Leukocyte Esterase Urine RBC Urine WBC Ur Squamous Epith Cells Urine Bacteria Hyaline Casts Urine Mucus Ur Random Sodium Urine Creatinine POC Glucose 120 H 11/24/19 11/24/19 11/24/19 06:05 06:05 06:05 WBC RBC Hgb Hct MCV MCH MCHC RDW Std Deviation RDW Coeff of Sophie Plt Count MPV Immature Gran % (Auto) Neut % (Auto) Lymph % (Auto) Colleton % (Auto) Eos % (Auto) Baso % (Auto) Absolute Neuts (auto) Absolute Lymphs (auto) Nucleated RBC % Platelet Estimate Anisocytosis Macrocytosis Ovalocytes PT 13.0 INR 1.0 Specimen Type Sample Site pH Bicarbonate Actual POC Total CO2 Base Excess O2 Saturation ABG pCO2 ABG pO2 O2 Delivery Device Liter Flow Blood Gas Notified Whom Blood Gas Notified Time Sodium Potassium Chloride Carbon Dioxide Anion Gap BUN Creatinine Estim Creat Clear Calc Est GFR (MDRD) Af Amer Est GFR (MDRD) Non-Af BUN/Creatinine Ratio Glucose Hemoglobin A1c 4.7 Lactic Acid 0.5 Calcium Phosphorus Magnesium Total Bilirubin Direct Bilirubin AST ALT Alkaline Phosphatase Ammonia B-Natriuretic Peptide Total Protein Albumin Globulin TSH Free T4 Cortisol Urine Color Urine Clarity Urine pH Ur Specific Boykins Urine Protein Urine Glucose (UA) Urine Ketones Urine Occult Blood Urine Nitrite Urine Bilirubin Urine Urobilinogen Ur Leukocyte Esterase Urine RBC Urine WBC Ur Squamous Epith Cells Urine Bacteria Hyaline Casts Urine Mucus Ur Random Sodium Urine Creatinine POC Glucose 11/24/19 11/24/19 11/24/19 06:05 08:07 08:10 WBC RBC Hgb Hct MCV MCH MCHC RDW Std Deviation RDW Coeff of Sophie Plt Count MPV Immature Gran % (Auto) Neut % (Auto) Lymph % (Auto) Colleton % (Auto) Eos % (Auto) Baso % (Auto) Absolute Neuts (auto) Absolute Lymphs (auto) Nucleated RBC % Platelet Estimate Anisocytosis Macrocytosis Ovalocytes PT INR Specimen Type Sample Site pH Bicarbonate Actual POC Total CO2 Base Excess O2 Saturation ABG pCO2 ABG pO2 O2 Delivery Device Liter Flow Blood Gas Notified Whom Blood Gas Notified Time Sodium Potassium Chloride Carbon Dioxide Anion Gap BUN Creatinine Estim Creat Clear Calc Est GFR (MDRD) Af Amer Est GFR (MDRD) Non-Af BUN/Creatinine Ratio Glucose Hemoglobin A1c Lactic Acid Calcium Phosphorus Magnesium Total Bilirubin 0.20 Direct Bilirubin 0.89 H AST 19 ALT 11 L Alkaline Phosphatase 96 Ammonia B-Natriuretic Peptide 267.0 H Total Protein 5.6 L Albumin 2.0 L Globulin 3.6 TSH Free T4 Cortisol Urine Color Urine Clarity Urine pH Ur Specific Boykins Urine Protein Urine Glucose (UA) Urine Ketones Urine Occult Blood Urine Nitrite Urine Bilirubin Urine Urobilinogen Ur Leukocyte Esterase Urine RBC Urine WBC Ur Squamous Epith Cells Urine Bacteria Hyaline Casts Urine Mucus Ur Random Sodium Urine Creatinine POC Glucose 91 11/24/19 11/24/19 11/24/19 10:10 10:11 10:44 WBC RBC Hgb Hct MCV MCH MCHC RDW Std Deviation RDW Coeff of Sophie Plt Count MPV Immature Gran % (Auto) Neut % (Auto) Lymph % (Auto) Colleton % (Auto) Eos % (Auto) Baso % (Auto) Absolute Neuts (auto) Absolute Lymphs (auto) Nucleated RBC % Platelet Estimate Anisocytosis Macrocytosis Ovalocytes PT INR Specimen Type ART Sample Site L RADIAL pH 7.13 L* Bicarbonate Actual 18.8 L POC Total CO2 20 Base Excess -10 L O2 Saturation 98 ABG pCO2 56.3 H ABG pO2 144 H O2 Delivery Device Nasal Can Liter Flow 6.0 Blood Gas Notified Whom ICU MD Blood Gas Notified Time 1011 Sodium Potassium Chloride Carbon Dioxide Anion Gap BUN Creatinine Estim Creat Clear Calc Est GFR (MDRD) Af Amer Est GFR (MDRD) Non-Af BUN/Creatinine Ratio Glucose Hemoglobin A1c Lactic Acid Calcium Phosphorus Magnesium Total Bilirubin Direct Bilirubin AST ALT Alkaline Phosphatase Ammonia 21.0 B-Natriuretic Peptide Total Protein Albumin Globulin TSH Free T4 Cortisol 7.90 Urine Color Urine Clarity Urine pH Ur Specific Boykins Urine Protein Urine Glucose (UA) Urine Ketones Urine Occult Blood Urine Nitrite Urine Bilirubin Urine Urobilinogen Ur Leukocyte Esterase Urine RBC Urine WBC Ur Squamous Epith Cells Urine Bacteria Hyaline Casts Urine Mucus Ur Random Sodium Urine Creatinine POC Glucose 11/24/19 11/24/19 11/24/19 10:44 11:14 11:15 WBC RBC Hgb Hct MCV MCH MCHC RDW Std Deviation RDW Coeff of Sophie Plt Count MPV Immature Gran % (Auto) Neut % (Auto) Lymph % (Auto) Col[place] % (Auto) Eos % (Auto) Baso % (Auto) Absolute Neuts (auto) Absolute Lymphs (auto) Nucleated RBC % Platelet Estimate Anisocytosis Macrocytosis Ovalocytes PT INR Specimen Type Sample Site pH Bicarbonate Actual POC Total CO2 Base Excess O2 Saturation ABG pCO2 ABG pO2 O2 Delivery Device Liter Flow Blood Gas Notified Whom Blood Gas Notified Time Sodium Potassium Chloride Carbon Dioxide Anion Gap BUN Creatinine Estim Creat Clear Calc Est GFR (MDRD) Af Amer Est GFR (MDRD) Non-Af BUN/Creatinine Ratio Glucose Hemoglobin A1c Lactic Acid Calcium Phosphorus Magnesium Total Bilirubin Direct Bilirubin AST ALT Alkaline Phosphatase Ammonia B-Natriuretic Peptide Total Protein Albumin Globulin TSH Free T4 Cortisol 20.90 26.90 H Urine Color Urine Clarity Urine pH Ur Specific Boykins Urine Protein Urine Glucose (UA) Urine Ketones Urine Occult Blood Urine Nitrite Urine Bilirubin Urine Urobilinogen Ur Leukocyte Esterase Urine RBC Urine WBC Ur Squamous Epith Cells Urine Bacteria Hyaline Casts Urine Mucus Ur Random Sodium Urine Creatinine 84.30 POC Glucose 11/24/19 11/24/19 11/24/19 11:15 11:15 12:33 WBC RBC Hgb Hct MCV MCH MCHC RDW Std Deviation RDW Coeff of Sophie Plt Count MPV Immature Gran % (Auto) Neut % (Auto) Lymph % (Auto) Col[place] % (Auto) Eos % (Auto) Baso % (Auto) Absolute Neuts (auto) Absolute Lymphs (auto) Nucleated RBC % Platelet Estimate Anisocytosis Macrocytosis Ovalocytes PT INR Specimen Type Sample Site pH Bicarbonate Actual POC Total CO2 Base Excess O2 Saturation ABG pCO2 ABG pO2 O2 Delivery Device Liter Flow Blood Gas Notified Whom Blood Gas Notified Time Sodium Potassium Chloride Carbon Dioxide Anion Gap BUN Creatinine Estim Creat Clear Calc Est GFR (MDRD) Af Amer Est GFR (MDRD) Non-Af BUN/Creatinine Ratio Glucose Hemoglobin A1c Lactic Acid Calcium Phosphorus Magnesium Total Bilirubin Direct Bilirubin AST ALT Alkaline Phosphatase Ammonia B-Natriuretic Peptide Total Protein Albumin Globulin TSH Free T4 Cortisol Urine Color Yellow Urine Clarity Sl. Cloudy Urine pH 5.0 Ur Specific Boykins 1.015 Urine Protein 15 H Urine Glucose (UA) Normal Urine Ketones Negative Urine Occult Blood Negative Urine Nitrite Negative Urine Bilirubin Negative Urine Urobilinogen 1 H Ur Leukocyte Esterase Negative Urine RBC 0 SEEN Urine WBC 0 SEEN Ur Squamous Epith Cells 0 SEEN Urine Bacteria RARE Hyaline Casts 0-5 SEEN Urine Mucus 0 SEEN Ur Random Sodium 31 Urine Creatinine POC Glucose 93 11/24/19 11/24/19 17:18 21:26 WBC RBC Hgb Hct MCV MCH MCHC RDW Std Deviation RDW Coeff of Sophie Plt Count MPV Immature Gran % (Auto) Neut % (Auto) Lymph % (Auto) Col[place] % (Auto) Eos % (Auto) Baso % (Auto) Absolute Neuts (auto) Absolute Lymphs (auto) Nucleated RBC % Platelet Estimate Anisocytosis Macrocytosis Ovalocytes PT INR Specimen Type Sample Site pH Bicarbonate Actual POC Total CO2 Base Excess O2 Saturation ABG pCO2 ABG pO2 O2 Delivery Device Liter Flow Blood Gas Notified Whom Blood Gas Notified Time Sodium Potassium Chloride Carbon Dioxide Anion Gap BUN Creatinine Estim Creat Clear Calc Est GFR (MDRD) Af Amer Est GFR (MDRD) Non-Af BUN/Creatinine Ratio Glucose Hemoglobin A1c Lactic Acid Calcium Phosphorus Magnesium Total Bilirubin Direct Bilirubin AST ALT Alkaline Phosphatase Ammonia B-Natriuretic Peptide Total Protein Albumin Globulin TSH Free T4 Cortisol Urine Color Urine Clarity Urine pH Ur Specific [place] Urine Protein Urine Glucose (UA) Urine Ketones Urine Occult Blood Urine Nitrite Urine Bilirubin Urine Urobilinogen Ur Leukocyte Esterase Urine RBC Urine WBC Ur Squamous Epith Cells Urine Bacteria Hyaline Casts Urine Mucus Ur Random Sodium Urine Creatinine POC Glucose 90 99 Clinical Impression(s) from Imaging Studies Chest X-Ray 11/23/19 17:58 IMPRESSION: Left apical pleural thickening. Left apical airspace disease with air bronchograms noted. Degenerative changes of the thoracic spine. Findings appear similar allowing for differences in radiographic technique to the previous study of 10/21/2019. Electronically Signed: Monroe Henderson MD at 22:34 EDT , Service support , Renal Ultrasound 11/24/19 05:55 IMPRESSION: There is a 1.5 cm left renal cyst. There is no evidence of hydronephrosis. Electronically Signed: Hilda Sahu at 11:30 EDT Tel , Service support , Brain CT 11/24/19 06:39 IMPRESSION: Chronic involutional changes of the brain. There is NO hemorrhage, edema, mass, mass effect or midline shift. Electronically Signed: Ken Allen MD at 7:19 EDT , Service support , Chest X-Ray 11/24/19 12:21 IMPRESSION: Central catheter placement. No pneumothorax. Stable left upper lung consolidation. Increasing lower lung infiltrates or edema. Electronically Signed: Joel Mclaughlin MD at 13:50 EDT , Service support , Medical Necessity - Tobacco Use Smoking Status: Current every day smoker Tobacco Use: Cigarettes Assessment/Plan All Active Problems (Last Reviewed 10/19/19 @ 14:[address] Tiffany Newell DO) Chronic diarrhea (Resolved) History of illicit drug use (Resolved) Iron deficiency anemia (Resolved) RECOMMENDATIONS: 1. Titrate Levophed by 1 mcg/min to maintain the mean arterial pressure at or above 65 mmHg. 2. Start scheduled Midodrine drain today. 3. Continue BiPAP therapy with naps and nightly. 4. Start scheduled aerosol treatments over concerns for possible COPD. 5. Discontinue continuous supplemental IV fluids. 6. Continue appropriate DVT prophylaxis. 7. Start empiric antimicrobials. 8. Encourage incentive spirometer use and mobilize patient as tolerated. IMPRESSIONS: 1. Acute kidney injury Improving. Likely prerenal in etiology and related to hemodynamic instability. Nephrology is currently following. Renal ultrasound was unremarkable. Will monitor urine output accordingly. No current indication for renal replacement therapy. Avoid nephrotoxic medications. 2. Undifferentiated shock Unclear etiology. Concern for hypovolemic versus distributive etiologies. At the present time, the patient is not demonstrating any systemic signs of infection. However, given that repeat x-ray revealed some possible bibasilar changes, will place on empiric antimicrobials should this represent an evolving pulmonary infectious process. Cultures are pending. Cosyntropin stimulation test was not consistent with adrenal insufficiency. We will plan to wean Levophed today to maintain a mean arterial pressure at or above 65 mmHg. 3. Encephalopathy Likely metabolic in nature. In addition, arterial blood gas did reveal some CO2 retention. He has responded appropriately to the use of noninvasive positive pressure ventilatory support. There is no concern for recurrent seizure activity. No need for antiepileptic medications. Continue to withhold sedating medications. Recommend continued BiPAP support with naps and nightly. 4. Hypomagnesemia Magnesium level was once again low this morning. 4 g of magnesium to be administered today. Recheck level tomorrow. 5. Anemia/history of left Pancoast tumor/non-small cell lung cancer/tobacco dependency/GERD/diabetes mellitus Complicates care, management, recovery and prognosis. The patient does continue to smoke cigarettes. Nicotine replacement therapy can be offered while admitted to the hospital. Physical therapy to work with the patient. TIME: 37 minutes of critical care time, independent of procedures, was spent addressing the patient's acute kidney injury, undifferentiated shock, encephalopathy, hypomagnesemia, anemia, review of all data and collaboration with the care team. [id number]) [id number] Critical care first hour
[2019-11-25 06:39] LABS: Absolute Lymphocyte Count 0.42 X10^3/uL (0.83-4.51); Absolute Neutrophil Count 7.3 X10^3/uL (2.0-7.7); Basophil# 0.03 X10^3/uL; Basophil% 0.4 % (0-1); Eosinophil# 0.15 X10^3/uL; Eosinophils% 1.8 % (0-5); Hematocrit 31.7 % (40-54); Hemoglobin 10.3 g/dL (13.0-16.5); Lymphocyte # 0.42 X10^3/ul (4.0); Lymphocyte % 5.1 % (19-41); Mean Corp Hgb Conc 32.5 g/dL (32-36); Mean Corpuscular Hgb 33.6 pg (27.0-32.0); Mean Corpuscular Volume 103.3 fL (80-94); Mean Platelet Vol. 9.9 fl (6.2-12.0); Monocyte# 0.31 X10^3/uL; Monocyte% 3.7 % (0-10); NRBC Flagged by Analyzer 0 % (0-5); Neutrophil # 7.33 X10^3/uL (2.7-7.7); Neutrophil % 88.6 % (47-70); POSITIVE DIFFERENTIAL YES; POSITIVE MORPHOLOGY YES; Platelet Count 179 K/mm3 (150-450); RBC Distribution Width CV 17.8 % (11.6-14.6); RBC Distribution Width SD 67.5 fl (35.1-43.9); Red Blood Count 3.07 M/mm3 (4.6-6.2); White Blood Count 8.3 K/mm3 (4.4-11.0)
[2019-11-25 06:40] LABS: Differential Indicated SCAN CRITERIA MET
[2019-11-25] MEDS: Levothyroxine 75 MCG Tablet PO (06:44)
[2019-11-25 07:03] LABS: ALB/GLOB Ratio 0.6 RATIO (0.9-2.4); AST(SGOT) 14 U/L (15-37); Alanine Aminotransfer ALT/SGPT 12 U/L (16-61); Albumin, Serum 2.1 g/dL (3.2-5.0); Alkaline Phosphatase 93 U/L (45-117); Anion Gap 7 (5-15); BUN 21 mg/dL (7-18); BUN/Creat Ratio 10.9 RATIO (10-20); Calcium,Total 8.3 mg/dL (8.5-10.1); Chloride 115 mmol/L (98-107); Creatinine, Serum 1.92 mg/dL (0.70-1.30); EST Glomerular Filtration Rate 39 mL/min (>60); Est Glom Filt Rate - Afr Amer 47 mL/min (>60); Estimated Creatinine Clearance 40.16 ml/min; Globulin 3.5 g/dL (2.2-4.2); Glucose 92 mg/dL (74-106); Potassium 3.7 mmol/L (3.5-5.1); Protein, Total 5.6 g/dL (6.4-8.2); Sodium Level 143 mmol/L (136-145)
[2019-11-25 07:37] LABS: Anisocytosis RARE; Macrocytosis 1+; Platelet Estimate ADEQUATE (ADEQ)
[2019-11-25] MEDS: Ipratropium/Albuterol Sulfate 3 ML AMPUL.NEB INHALATION ×3 (07:51→19:08)
[2019-11-25 07:59] LABS: Magnesium 1.4 mg/dL (1.6-2.6)
--- NOTE | 2019-11-25 08:26 | PN.RENAL_ITS ---
Subjective: Following for EVERARDO. Pt denies CP, SOB, nausea or edema. - Physical Exam Vitals/I&O's: Vital Signs Temp Pulse Resp BP Pulse Ox 97.9 F 78 20 H 115/60 98 11/25/19 00:00 11/25/19 07:58 11/25/19 07:58 11/25/19 06:00 11/25/19 08:01 Oxygen Flow Rate (L/min) 1 Oxygen Delivery Method Room Air Weight: 76.3 kg Body Mass Index (BMI) 25.7 Intake and Output for Last 24 Hours 11/23/19 11/24/19 11/25/19 23:59 23:59 23:59 Intake Total 1745 / 1965 5111.25 / 5111.25 1029.46 / 1029.46 Output Total 3975 / 3975 1700 / 1700 Balance 1745 / 1215 1136.25 / 1136.25 -670.54 / -670.54 General: Alert, Oriented x3 HEENT: Atraumatic, Normocephalic Oral: Moist Mucosa Neck: Supple Lungs: Clear to auscultation Cardiovascular: Normal S1, Normal S2, No murmurs Abdomen: Bowel Sounds Present, Soft, Non Tender Extremities: No edema Laboratory Results 11/24/19 06:05: PT 13.0, INR 1.0 11/24/19 06:05: Total Bilirubin 0.20, Direct Bilirubin 0.89 H, AST 19, ALT 11 L, Alkaline Phosphatase 96, Total Protein 5.6 L, Albumin 2.0 L, Globulin 3.6 11/24/19 08:10: B-Natriuretic Peptide 267.0 H 11/24/19 10:10: Cortisol 7.90 11/24/19 10:11: Specimen Type ART, Sample Site L RADIAL, pH 7.13 L*, Bicarbonate Actual 18.8 L, POC Total CO2 20, Base Excess -10 L, O2 Saturation 98, ABG pCO2 56.3 H, ABG pO2 144 H, O2 Delivery Device Nasal Can, Liter Flow 6.0, Blood Gas Notified Whom ICU , Blood Gas Notified Time 1011 11/24/19 10:44: Ammonia 21.0 11/24/19 10:44: Cortisol 20.90 11/24/19 11:14: Cortisol 26.90 H 11/24/19 11:15: Urine Creatinine 84.30 11/24/19 11:15: Urine Color Yellow, Urine Clarity Sl. Cloudy, Urine pH 5.0, Ur Specific Barney 1.015, Urine Protein 15 H, Urine Glucose (UA) Normal, Urine Ketones Negative, Urine Occult Blood Negative, Urine Nitrite Negative, Urine Bilirubin Negative, Urine Urobilinogen 1 H, Ur Leukocyte Esterase Negative, Urine RBC 0 SEEN, Urine WBC 0 SEEN, Ur Squamous Epith Cells 0 SEEN, Urine Bacteria RARE, Hyaline Casts 0-5 SEEN, Urine Mucus 0 SEEN 11/24/19 11:15: Ur Random Sodium 31 11/24/19 12:33: POC Glucose 93 11/24/19 17:18: POC Glucose 90 11/24/19 21:26: POC Glucose 99 11/25/19 06:30: WBC 8.3, RBC 3.07 L, Hgb 10.3 L, Hct 31.7 L, MCV 103.3 H, MCH 33.6 H, MCHC 32.5, RDW Std Deviation 67.5 H, RDW Coeff of Sophie 17.8 H, Plt Count 179, MPV 9.9, Immature Gran % (Auto) 0.400, Neut % (Auto) 88.6 H, Lymph % (Auto) 5.1 L, [place] % (Auto) 3.7, Eos % (Auto) 1.8, Baso % (Auto) 0.4, Absolute Neuts (auto) 7.3, Absolute Lymphs (auto) 0.42 L, Nucleated RBC % 0, Platelet Estimate ADEQUATE, Anisocytosis RARE, Macrocytosis 1+ 11/25/19 06:30: Sodium 143, Potassium 3.7, Chloride 115 H, Carbon Dioxide 21.0, Anion Gap 7, BUN 21 H, Creatinine 1.92 H, Estim Creat Clear Calc 40.16, Est GFR (MDRD) Af Amer 47 L, Est GFR (MDRD) Non-Af 39 L, BUN/Creatinine Ratio 10.9, Glucose 92, Calcium 8.3 L, Total Bilirubin 0.30, AST 14 L, ALT 12 L, Alkaline Phosphatase 93, Total Protein 5.6 L, Albumin 2.1 L, Globulin 3.5, Albumin/G lobulin Ratio 0.6 L 11/25/19 06:30: Magnesium 1.4 L Current Medications Acetaminophen (Tylenol) 650 mg PO Q6H PRN PRN PRN Reason: Pain Score 1-10/Temp > 100.7 F Albuterol Sulfate (Ventolin Aerosols) 2.5 mg INHALATION Q2H PRN PRN PRN Reason: SOB/Wheezing Albuterol/Ipratropium (Duoneb) 3 ml INHALATION Q6HWA.RT [facility] Last Admin: 11/25/19 07:51 Dose: 3 ml Documented by: Calcium Carbonate (Tums) 500 mg PO BIDCM [facility] Last Admin: 11/24/19 15:30 Dose: Not Given Documented by: Ergocalciferol (Vitamin D) 50,000 unit PO WE [facility] Heparin Sodium (Porcine) (Heparin Na) 5,000 unit SC Q12 [facility] Last Admin: 11/24/19 21:28 Dose: 5,000 unit Documented by: Sodium Chloride () 250 mls @ 15 mls/hr IV .[id number] PRN PRN Reason: Saline Flush Sodium Chloride () 250 mls @ 15 mls/hr IV .[id number] PRN PRN Reason: Additional IVPB Infusion Norepinephrine Bitartrate 8 mg (/ Sodium Chloride) 250 mls @ 9.375 mls/hr CONT INF .[id number] [facility]; Protocol Last Titration: 11/25/19 06:00 Dose: 5 mcg/min, 9.4 mls/hr Documented by: Pantoprazole Sodium 40 mg/ (Sodium Chloride) 110 mls @ 330 mls/hr IV Q24 [facility] Last Infusion: 11/24/19 10:52 Dose: Infused Documented by: Piperacillin Sod/Tazobactam (Sod 3.375 gm/ Sodium Chloride) 50 mls @ 12.5 mls/hr IV Q8 [facility] Insulin Human Lispro (Humalog Kwikpen (Bkc)) 0 unit SC ACHS [facility]; Protocol Last Admin: 11/25/19 07:58 Dose: Not Given Documented by: Levothyroxine Sodium (Synthroid) 75 mcg PO DAILY@0600 [facility] Last Admin: 11/25/19 06:44 Dose: 75 mcg Documented by: Midodrine (Proamatine) 10 mg PO TID [facility] Nitroglycerin (Nitrostat) 0.4 mg SUBLINGUAL Q5M PRN PRN Reason: CARDIAC/CHEST PAIN Promethazine HCl (Phenergan) 6.25 mg IV Q6H PRN PRN PRN Reason: NAUSEA/VOMITING Senna/Docusate Sodium (Senokot-S, Linda-Colace) 2 tablet PO BID PRN PRN PRN Reason: Constipation Sodium Chloride () 10 - 40 ml IV UD PRN PRN Reason: SALINE FLUSH Medical Necessity - Tobacco Use Smoking Status: Current every day smoker Tobacco Use: Cigarettes Assessment/Plan All Active Problems (Last Reviewed 10/19/19 @ 14:[address] Tiffany Newell, DO) Chronic diarrhea (Resolved) History of illicit drug use (Resolved) Iron deficiency anemia (Resolved) Assesment: EVERARDO is likely prerenal due to prolonged hypotension Hyponatremia Hypotension hyperphosphatemia hypomagnesemia Metastatic lung adenocarcinoma s/p chemotherapy with immune checkpoint inhibitors Plan: Scr 1.92, renal function is continuing to improve with better BP and renal perfusion. No need for dialysis. Continue current supportive care to keep MAP>65. Urine output is good. Will watch for hypernatremia. Replace Mg deficit. Recheck Mg and phosphorus in am.
[2019-11-25] MEDS: Midodrine HCl 5 MG Tablet 10 MG PO ×3 (09:05→21:09)
[2019-11-25] MEDS: Heparin Injection (Vial) 5,000 UNIT/ML VIAL 5000 UNIT SC ×2 (09:26→21:09)
[2019-11-25] MEDS: Calcium Carbonate 500 MG Tablet PO (09:26)
[2019-11-25] MEDS: Magnesium Sulfate 4gm/100mL 4 GM/100 ML IV.SOLN. IV (09:26)
[2019-11-25] MEDS: Acetaminophen 325 MG Tablet 650 MG PO ×2 (09:36→22:08)
--- NOTE | 2019-11-25 12:14 | PN_ITS ---
Reason for Visit: Hypotension, acute kidney injury Objective: Patient blood pressure is maintained on vasopressor, Levophed support. Patient is awake and more alert today. Currently BiPAP as rescue therapy. Patient put good urine output and urine is clear. No fever. Exact etiology of prolonged hypotension of 3 weeks unclear. Vitals/I&O's: Vital Signs Temp Pulse Resp BP Pulse Ox 97.9 F 78 20 H 115/60 98 11/25/19 00:00 11/25/19 07:58 11/25/19 07:58 11/25/19 06:00 11/25/19 08:01 Oxygen Flow Rate (L/min) 1 Oxygen Delivery Method Room Air Weight: 168 lb 3.403 oz Body Mass Index (BMI) 25.7 Intake and Output for Last 24 Hours 11/23/19 11/24/19 11/25/19 23:59 23:59 23:59 Intake Total 1745 / 1965 5111.25 / 5111.25 1029.46 / 1029.46 Output Total 3975 / 3975 1700 / 1700 Balance 1745 / 1215 1136.25 / 1136.25 -670.54 / -670.54 General: Alert, Oriented x3, Cooperative HEENT: Atraumatic, PERRLA, EOMI, Normocephalic Neck: Supple, No JVD, Negative Carotid Bruits Lungs: Clear to auscultation, No wheeze, No rales, Diminished, Rhonchi Cardiovascular: Regular rate, Regular Rhythm, Normal S1, Normal S2, No murmurs Abdomen: Bowel Sounds Present, Soft, Non Tender, Non-Distended Extremities: No edema, Capillary Refill Less than 3 Seconds Skin: No rashes, No breakdown Musculoskeletal: No Tenderness to Palpation of Joints or Extremities, Arthritic Changes Neurological: Cranial nerves II-XII grossly intact, Deep Tendon Reflexes 2+/4 and Symmetrical, Neuro grossly intact Psych/Mental Status: Normal Affect, Appropriate Microbiology Past 72 Hours 11/24/19 13:30 Urine Catheter - Catheter Urine Culture - Preliminary Culture exhibits no growth. Laboratory Results 11/24/19 12:33: POC Glucose 93 11/24/19 17:18: POC Glucose 90 11/24/19 21:26: POC Glucose 99 11/25/19 06:30: WBC 8.3, RBC 3.07 L, Hgb 10.3 L, Hct 31.7 L, MCV 103.3 H, MCH 33.6 H, MCHC 32.5, RDW Std Deviation 67.5 H, RDW Coeff of Sophie 17.8 H, Plt Count 179, MPV 9.9, Immature Gran % (Auto) 0.400, Neut % (Auto) 88.6 H, Lymph % (Auto) 5.1 L, [place] % (Auto) 3.7, Eos % (Auto) 1.8, Baso % (Auto) 0.4, Absolute Neuts (auto) 7.3, Absolute Lymphs (auto) 0.42 L, Nucleated RBC % 0, Platelet Estimate ADEQUATE, Anisocytosis RARE, Macrocytosis 1+ 11/25/19 06:30: Sodium 143, Potassium 3.7, Chloride 115 H, Carbon Dioxide 21.0, Anion Gap 7, BUN 21 H, Creatinine 1.92 H, Estim Creat Clear Calc 40.16, Est GFR (MDRD) Af Amer 47 L, Est GFR (MDRD) Non-Af 39 L, BUN/Creatinine Ratio 10.9, Glucose 92, Calcium 8.3 L, Total Bilirubin 0.30, AST 14 L, ALT 12 L, Alkaline Phosphatase 93, Total Protein 5.6 L, Albumin 2.1 L, Globulin 3.5, Albumin/Globulin Ratio 0.6 L 11/25/19 06:30: Magnesium 1.4 L Current Medications Acetaminophen (Tylenol) 650 mg PO Q6H PRN PRN PRN Reason: Pain Score 1-10/Temp > 100.7 F Last Admin: 11/25/19 09:36 Dose: 650 mg Documented by: Albuterol Sulfate (Ventolin Aerosols) 2.5 mg INHALATION Q2H PRN PRN PRN Reason: SOB/Wheezing Albuterol/Ipratropium (Duoneb) 3 ml INHALATION Q6HWA.RT [facility] Last Admin: 11/25/19 07:51 Dose: 3 ml Documented by: Calcium Carbonate (Tums) 500 mg PO BIDCM [facility] Last Admin: 11/25/19 09:26 Dose: 500 mg Documented by: Ergocalciferol (Vitamin D) 50,000 unit PO WE [facility] Heparin Sodium (Porcine) (Heparin Na) 5,000 unit SC Q12 [facility] Last Admin: 11/25/19 09:26 Dose: 5,000 unit Documented by: Sodium Chloride () 250 mls @ 15 mls/hr IV .[id number] PRN PRN Reason: Saline Flush Sodium Chloride () 250 mls @ 15 mls/hr IV .[id number] PRN PRN Reason: Additional IVPB Infusion Norepinephrine Bitartrate 8 mg (/ Sodium Chloride) 250 mls @ 9.375 mls/hr CONT INF .[id number] [facility]; Protocol Last Titration: 11/25/19 06:00 Dose: 5 mcg/min, 9.4 mls/hr Documented by: Pantoprazole Sodium 40 mg/ (Sodium Chloride) 110 mls @ 330 mls/hr IV Q24 [facility] Last Admin: 11/25/19 09:26 Dose: 110 mls/hr Documented by: Piperacillin Sod/Tazobactam (Sod 3.375 gm/ Sodium Chloride) 50 mls @ 12.5 mls/hr IV Q8 [facility] Magnesium Sulfate () 4 gm in 100 mls @ 25 mls/hr IV X1 ONE Stop: 11/25/19 12:27 Last Admin: 11/25/19 09:26 Dose: 25 mls/hr Documented by: Insulin Human Lispro (Humalog Kwikpen (Bkc)) 0 unit SC ACHS [facility]; Protocol Last Admin: 11/25/19 07:58 Dose: Not Given Documented by: Levothyroxine Sodium (Synthroid) 75 mcg PO DAILY@0600 [facility] Last Admin: 11/25/19 06:44 Dose: 75 mcg Documented by: Midodrine (Proamatine) 10 mg PO TID [facility] Last Admin: 11/25/19 09:05 Dose: 10 mg Documented by: Nitroglycerin (Nitrostat) 0.4 mg SUBLINGUAL Q5M PRN PRN Reason: CARDIAC/CHEST PAIN Promethazine HCl (Phenergan) 6.25 mg IV Q6H PRN PRN PRN Reason: NAUSEA/VOMITING Senna/Docusate Sodium (Senokot-S, Linda-Colace) 2 tablet PO BID PRN PRN PRN Reason: Constipation Sodium Chloride () 10 - 40 ml IV UD PRN PRN Reason: SALINE FLUSH Medical Necessity - Tobacco Use Smoking Status: Current every day smoker Tobacco Use: Cigarettes Assessment/Plan All Active Problems (Last Reviewed 10/19/19 @ 14:[address] Tiffany Newell, ) Chronic diarrhea (Resolved) History of illicit drug use (Resolved) Iron deficiency anemia (Resolved) The patient is a 54 year old M with history of adenocarcinoma of left lung with a metastatic lesion in right upper lobe, being managed by Dr. Harper was sent from chemotherapy center after he was found acute kidney injury. Patient has noticed low blood pressure for 3 to 4 weeks with blood pressure, systolic running in 80s which used to be high, hypertension prior to chemo. 1. Acute kidney injury most probably prerenal/volume deficit/hypotension, with suspicion of ATN from prolonged hypotension/chemotherapy: Initially patient was admitted in PCU and then transferred to ICU. Patient also had EVERARDO on admission on October 09, 2019. 11/23: Urine lites shows FeNa1%, suggestive of prerenal but this was after hydration so possible ATN from prolonged hypotension. Kidney/bladder ultrasound results no evidence of hydronephrosis normal size and cortex of both kidneys. Incidental 1.5 cm left renal cyst. Discussed with the arson and bomb investigator. 11/24: Creatinine is improving; BUN/creatinine 21/1.92. Likely prerenal. Continue vasopressor support to maintain map more than 65. Started scheduled midodrine 10 mg daily. Urine output about 4 L yesterday. Positive fluid balance 2.2 L. 2. Shock with hypotension, prolonged for about 3 weeks, etiology unclear possible hypovolemic versus distributive: Patient is transferred to ICU. Starting on Levophed. Mechanical Unit Repairer and arson and bomb investigator consult. Monitor intake and output. Meza catheter inserted. Cosyntropin was done shows appropriate response. TSH 0.91, free T4 0.68 possible suggestive of euthyroid sick syndrome. Repeat chest x-ray shows right IJ CVC catheter and increasing lower lung infiltrates therefore empirically on IV antibiotic Zosyn. Urine culture shows no growth. Blood cultures x2 are pending 3. Acute hypoxic and hypercarbic respiratory failure, with altered mental status/acute metabolic encephalopathy: ABG shows 7.13/50 6/144 on 6 L nasal cannula. Input has improved. Currently on nasal cannula with rescue BiPAP. Patient has history of left lung metastatic adenocarcinoma history of radiation and current chemotherapy; being managed by Dr. Harper 4. Active seizure, most probably complex Seizure: History of seizure secondary to profound hypocalcemia during previous admission for closed right hip fracture with toxic/metabolic encephalopathy in October 2019. Patient was given Keppra 500 mg IV. EEG and SOC tele-neurology consult. 5.. Chronic normocytic normochromic anemia most probably secondary to neoplasm/chemotherapy and thrombocytopenia: H&H and platelet count is stable. 6.. Type 2 diabetes mellitus: Patient stated his blood sugar well controlled af ter diagnosis of cancer and chemotherapy most probably from weight loss: Glucose 71. Regular diet. 7. Hypertension not currently hypotension as mentioned above 8. Other comorbidities include major depression, history of QT prolongation, closed right hip fracture status post replacement, peripheral neuropathy, hypothyroidism, GERD, Breen's esophagus, chronic hepatitis C, chronic substance use/narcotic use: Multiple comorbidities complicates the present care and expect difficult and delay recovery. The patient was taken off QT prolonging medications including Seroquel and citalopram DVT prophylaxis: Heparin 5000 UNITS subcutaneous twice daily Total time of the visit including total time spent in counseling or coordination of care, (more than 50% of the total time, spent in obtaining medical information from nurses and other ancillary care providers), coordination with consultants, review of labs and imaging is 30 minutes Living will/advanced directive/end of life care: Patient does not have living will or advanced directive. After discussion of procedures involved with full code, DNR CC arrest and DNR CC, the patient opted for DNR-CC Arrest Patient does not want artificial life support including intubation, tube feed, ventilator and/chest compression, and DC shock if needed. After talking to patient's mother Ms. Romero, she desired vaso-pressor therapy for blood pressure support DNR CC arrest. Total time spent in [id number] encounter in discussion of advanced directive 16 minutes. Microbiology Past 72 Hours 11/24/19 13:30 Urine Catheter - Catheter Urine Culture - Preliminary Culture exhibits no growth. Laboratory Results 11/24/19 12:33: POC Glucose 93 11/24/19 17:18: POC Glucose 90 11/24/19 21:26: POC Glucose 99 11/25/19 06:30: WBC 8.3, RBC 3.07 L, Hgb 10.3 L, Hct 31.7 L, MCV 103.3 H, MCH 33.6 H, MCHC 32.5, RDW Std Deviation 67.5 H, RDW Coeff of Sophie 17.8 H, Plt Count 179, MPV 9.9, Immature Gran % (Auto) 0.400, Neut % (Auto) 88.6 H, Lymph % (Auto) 5.1 L, [place] % (Auto) 3.7, Eos % (Auto) 1.8, Baso % (Auto) 0.4, Absolute Neuts (auto) 7.3, Absolute Lymphs (auto) 0.42 L, Nucleated RBC % 0, Platelet Estimate ADEQUATE, Anisocytosis RARE, Macrocytosis 1+ 11/25/19 06:30: Sodium 143, Potassium 3.7, Chloride 115 H, Carbon Dioxide 21.0, Anion Gap 7, BUN 21 H, Creatinine 1.92 H, Estim Creat Clear Calc 40.16, Est GFR (MDRD) Af Amer 47 L, Est GFR (MDRD) Non-Af 39 L, BUN/Creatinine Ratio 10.9, Glucose 92, Calcium 8.3 L, Total Bilirubin 0.30, AST 14 L, ALT 12 L, Alkaline Phosphatase 93, Total Protein 5.6 L, Albumin 2.1 L, Globulin 3.5, Albumin/Globulin Ratio 0.6 L 11/25/19 06:30: Magnesium 1.4 L Clinical Impression(s) from Imaging Studies Chest X-Ray 11/23/19 17:58 IMPRESSION: Left apical pleural thickening. Left apical airspace disease with air bronchograms noted. Degenerative changes of the thoracic spine. Findings appear similar allowing for differences in radiographic technique to the previous study of 10/21/2019. Renal Ultrasound 11/24/19 05:55 IMPRESSION: There is a 1.5 cm left renal cyst. There is no evidence of hydronephrosis. Brain CT 11/24/19 06:39 IMPRESSION: Chronic involutional changes of the brain. There is NO hemorrhage, edema, mass, mass effect or midline shift. Inpatient E&M: [id number] Subs Hosp L3
[2019-11-25 12:40] LABS: Bedside Glucose 195 mg/dL (70-110)
[2019-11-25] MEDS: Insulin Lispro 100 UNIT/ML INSULN.PEN SC (13:40)
--- NOTE | 2019-11-25 14:43 | CASEMGMT ---
Chart review completed previously but this RN CM did attempt to complete CM assessment with pt today as he is more alert but pt did not answer when this RN CM called phone this am and then later, pt stopped in room and pt was sleeping and did not awaken to knock on door or verbal stimuli at this time. CM to follow. Per previous notes, pt is active with palliative care, direction home, and was set up with [facility] on discharge from [facility] rehab unit. SStaten RN BARBIE
[2019-11-25 17:00] LABS: Bedside Glucose 144 mg/dL (70-110)
[2019-11-25] MEDS: 0.9% Saline Lock 10 ML Syringe IV (18:08)
[2019-11-25 21:11] LABS: Bedside Glucose 127 mg/dL (70-110)
[2019-11-26] VITALS (18 sets, daily range): BP systolic 108–142; BP diastolic 54–81; PULSE 76–92; RESP 12–18; TEMP 36.9–39; O2SAT 97–100
--- NOTE | 2019-11-26 01:31 | NURSING ---
Walked in pt. room because tele monitor leads were off and pt. had pulled central line half out. Pt. stated it hurt. Central line and sutures removed.
[2019-11-26 04:30] LABS: BUN 29 mg/dL (7-18); BUN/Creat Ratio 20.9 RATIO (10-20); Calcium,Total 8.3 mg/dL (8.5-10.1); Chloride 111 mmol/L (98-107); Creatinine, Serum 1.39 mg/dL (0.70-1.30); EST Glomerular Filtration Rate 56 mL/min (>60); Est Glom Filt Rate - Afr Amer 68 mL/min (>60); Estimated Creatinine Clearance 55.48 ml/min; Glucose 102 mg/dL (74-106); Magnesium 1.5 mg/dL (1.6-2.6); Phosphorus 2.4 mg/dL (2.5-4.9); Potassium 3.4 mmol/L (3.5-5.1); Sodium Level 142 mmol/L (136-145)
[2019-11-26] MEDS: Midodrine HCl 5 MG Tablet 10 MG PO (05:29)
[2019-11-26] MEDS: Levothyroxine 75 MCG Tablet PO (05:29)
[2019-11-26] MEDS: 0.9% Saline Lock 10 ML Syringe IV (05:30)
--- NOTE | 2019-11-26 06:14 | PCM.PN.INT ---
Subjective: The patient was seen and examined at the bedside this morning. Events from the last 24 hours have been reviewed. The patient is currently afebrile, hemodynamically stable and maintaining appropriate oxygen saturations on room air. The patient has been off of all forms of vasopressor support since 929 yesterday. He only tolerated BiPAP last evening for approximately 2.5 hours. He does report some mild shortness of breath this morning along with a mild cough of clear sputum. Objective: The patient's most recent lab work, culture data and imaging studies have all been personally reviewed. Surface echocardiogram revealed normal LV size and function with an ejection fraction of 65%. Stage II diastolic dysfunction was noted. Renal ultrasound was largely unrevealing. There was no evidence of hydronephrosis. Infectious work-up has been unrevealing to date. General: Alert, Cooperative, No apparent distress HEENT: Atraumatic, PERRLA, Normocephalic Oral: No Gingival or Mucosal Lesions/ Ulcerations Neck: Supple, No Nodes, Trachea Midline Lungs: Diminished Cardiovascular: Regular rate, Regular Rhythm, Normal S1, Normal S2 Abdomen: Bowel Sounds Present, Soft, Non Tender Extremities: No clubbing, No cyanosis, No edema Skin: - - No significant change from previous. Musculoskeletal: No Tenderness to Palpation of Joints or Extremities Lymphatic: No Cervical, Supraclavicular, or Inguinal Adenopathy Neurological: Cranial nerves II-XII grossly intact, Neuro grossly intact Psych/Mental Status: Normal Affect, Appropriate Vital Signs Temp Pulse Resp BP Pulse Ox 99.7 F H 79 15 142/70 H 98 11/26/19 06:00 11/26/19 06:00 11/26/19 06:00 11/26/19 06:00 11/26/19 06:00 Oxygen Flow Rate (L/min) 1 Oxygen Delivery Method Room Air Weight: 170 lb 3.15 oz Body Mass Index (BMI) 25.7 Intake and Output for Last 24 Hours 11/24/19 11/25/19 11/26/19 23:59 23:59 23:59 Intake Total 5111.25 / 5111.25 3500.99 / 3500.99 371.87 / 371.87 Output Total 3975 / 3975 5400 / 5400 775 / 775 Balance 1136.25 / 1136.25 -1899.01 / -1899.01 -403.13 / -403.13 Labs (Last 48 Hours) 11/24/19 11/24/19 11/24/19 06:05 06:05 06:05 WBC 9.7 RBC 3.19 L Hgb 10.7 L Hct 33.4 L MCV 104.7 H MCH 33.5 H MCHC 32.0 RDW Std Deviation 69.3 H RDW Coeff of Sophie 17.8 H Plt Count 176 MPV 10.1 Immature Gran % (Auto) 0.400 Neut % (Auto) 82.4 H Lymph % (Auto) 8.8 L [place] % (Auto) 5.7 Eos % (Auto) 2.5 Baso % (Auto) 0.2 Absolute Neuts (auto) 8.0 H Absolute Lymphs (auto) 0.86 Nucleated RBC % 0 Platelet Estimate Anisocytosis Macrocytosis Ovalocytes RARE PT INR Specimen Type Sample Site pH Bicarbonate Actual POC Total CO2 Base Excess O2 Saturation ABG pCO2 ABG pO2 O2 Delivery Device Liter Flow Blood Gas Notified Whom Blood Gas Notified Time Sodium 132 L Potassium 3.7 Chloride 106 Carbon Dioxide 19.0 L Anion Gap 7 BUN 25 H Creatinine 3.56 H Estim Creat Clear Calc 21.66 Est GFR (MDRD) Af Amer 23 L Est GFR (MDRD) Non-Af 19 L BUN/Creatinine Ratio 7.0 L Glucose 100 Hemoglobin A1c 4.7 Lactic Acid Calcium 7.4 L Phosphorus 6.0 H Magnesium Total Bilirubin Direct Bilirubin AST ALT Alkaline Phosphatase Ammonia B-Natriuretic Peptide Total Protein Albumin Globulin Albumin/Globulin Ratio TSH 0.91 Free T4 0.68 L Cortisol Urine Color Urine Clarity Urine pH Ur Specific [place] Urine Protein Urine Glucose (UA) Urine Ketones Urine Occult Blood Urine Nitrite Urine Bilirubin Urine Urobilinogen Ur Leukocyte Esterase Urine RBC Urine WBC Ur Squamous Epith Cells Urine Bacteria Hyaline Casts Urine Mucus Ur Random Sodium Urine Creatinine POC Glucose 11/24/19 11/24/19 11/24/19 06:05 06:05 06:05 WBC RBC Hgb Hct MCV MCH MCHC RDW Std Deviation RDW Coeff of Sophie Plt Count MPV Immature Gran % (Auto) Neut % (Auto) Lymph % (Auto) [place] % (Auto) Eos % (Auto) Baso % (Auto) Absolute Neuts (auto) Absolute Lymphs (auto) Nucleated RBC % Platelet Estimate Anisocytosis Macrocytosis Ovalocytes PT 13.0 INR 1.0 Specimen Type Sample Site pH Bicarbonate Actual POC Total CO2 Base Excess O2 Saturation ABG pCO2 ABG pO2 O2 Delivery Device Liter Flow Blood Gas Notified Whom Blood Gas Notified Time Sodium Potassium Chloride Carbon Dioxide Anion Gap BUN Creatinine Estim Creat Clear Calc Est GFR (MDRD) Af Amer Est GFR (MDRD) Non-Af BUN/Creatinine Ratio Glucose Hemoglobin A1c Lactic Acid 0.5 Calcium Phosphorus Magnesium Total Bilirubin 0.20 Direct Bilirubin 0.89 H AST 19 ALT 11 L Alkaline Phosphatase 96 Ammonia B-Natriuretic Peptide Total Protein 5.6 L Albumin 2.0 L Globulin 3.6 Albumin/Globulin Ratio TSH Free T4 Cortisol Urine Color Urine Clarity Urine pH Ur Specific [place] Urine Protein Urine Glucose (UA) Urine Ketones Urine Occult Blood Urine Nitrite Urine Bilirubin Urine Urobilinogen Ur Leukocyte Esterase Urine RBC Urine WBC Ur Squamous Epith Cells Urine Bacteria Hyaline Casts Urine Mucus Ur Random Sodium Urine Creatinine POC Glucose 11/24/19 11/24/19 11/24/19 08:07 08:10 10:10 WBC RBC Hgb Hct MCV MCH MCHC RDW Std Deviation RDW Coeff of Sophie Plt Count MPV Immature Gran % (Auto) Neut % (Auto) Lymph % (Auto) [place] % (Auto) Eos % (Auto) Baso % (Auto) Absolute Neuts (auto) Absolute Lymphs (auto) Nucleated RBC % Platelet Estimate Anisocytosis Macrocytosis Ovalocytes PT INR Specimen Type Sample Site pH Bicarbonate Actual POC Total CO2 Base Excess O2 Saturation ABG pCO2 ABG pO2 O2 Delivery Device Liter Flow Blood Gas Notified Whom Blood Gas Notified Time Sodium Potassium Chloride Carbon Dioxide Anion Gap BUN Creatinine Estim Creat Clear Calc Est GFR (MDRD) Af Amer Est GFR (MDRD) Non-Af BUN/Creatinine Ratio Glucose Hemoglobin A1c Lactic Acid Calcium Phosphorus Magnesium Total Bilirubin Direct Bilirubin AST ALT Alkaline Phosphatase Ammonia B-Natriuretic Peptide 267.0 H Total Protein Albumin Globulin Albumin/Globulin Ratio TSH Free T4 Cortisol 7.90 Urine Color Urine Clarity Urine pH Ur Specific [place] Urine Protein Urine Glucose (UA) Urine Ketones Urine Occult Blood Urine Nitrite Urine Bilirubin Urine Urobilinogen Ur Leukocyte Esterase Urine RBC Urine WBC Ur Squamous Epith Cells Urine Bacteria Hyaline Casts Urine Mucus Ur Random Sodium Urine Creatinine POC Glucose 91 11/24/19 11/24/19 11/24/19 10:11 10:44 10:44 WBC RBC Hgb Hct MCV MCH MCHC RDW Std Deviation RDW Coeff of Sophie Plt Count MPV Immature Gran % (Auto) Neut % (Auto) Lymph % (Auto) [place] % (Auto) Eos % (Auto) Baso % (Auto) Absolute Neuts (auto) Absolute Lymphs (auto) Nucleated RBC % Platelet Estimate Anisocytosis Macrocytosis Ovalocytes PT INR Specimen Type ART Sample Site L RADIAL pH 7.13 L* Bicarbonate Actual 18.8 L POC Total CO2 20 Base Excess -10 L O2 Saturation 98 ABG pCO2 56.3 H ABG pO2 144 H O2 Delivery Device Nasal Can Liter Flow 6.0 Blood Gas Notified Whom ICU Blood Gas Notified Time 1011 Sodium Potassium Chloride Carbon Dioxide Anion Gap BUN Creatinine Estim Creat Clear Calc Est GFR (MDRD) Af Amer Est GFR (MDRD) Non-Af BUN/Creatinine Ratio Glucose Hemoglobin A1c Lactic Acid Calcium Phosphorus Magnesium Total Bilirubin Direct Bilirubin AST ALT Alkaline Phosphatase Ammonia 21.0 B-Natriuretic Peptide Total Protein Albumin Globulin Albumin/Globulin Ratio TSH Free T4 Cortisol 20.90 Urine Color Urine Clarity Urine pH Ur Specific [place] Urine Protein Urine Glucose (UA) Urine Ketones Urine Occult Blood Urine Nitrite Urine Bilirubin Urine Urobilinogen Ur Leukocyte Esterase Urine RBC Urine WBC Ur Squamous Epith Cells Urine Bacteria Hyaline Casts Urine Mucus Ur Random Sodium Urine Creatinine POC Glucose 11/24/19 11/24/19 11/24/19 11:14 11:15 11:15 WBC RBC Hgb Hct MCV MCH MCHC RDW Std Deviation RDW Coeff of Sophie Plt Count MPV Immature Gran % (Auto) Neut % (Auto) Lymph % (Auto) [place] % (Auto) Eos % (Auto) Baso % (Auto) Absolute Neuts (auto) Absolute Lymphs (auto) Nucleated RBC % Platelet Estimate Anisocytosis Macrocytosis Ovalocytes PT INR Specimen Type Sample Site pH Bicarbonate Actual POC Total CO2 Base Excess O2 Saturation ABG pCO2 ABG pO2 O2 Delivery Device Liter Flow Blood Gas Notified Whom Blood Gas Notified Time Sodium Potassium Chloride Carbon Dioxide Anion Gap BUN Creatinine Estim Creat Clear Calc Est GFR (MDRD) Af Amer Est GFR (MDRD) Non-Af BUN/Creatinine Ratio Glucose Hemoglobin A1c Lactic Acid Calcium Phosphorus Magnesium Total Bilirubin Direct Bilirubin AST ALT Alkaline Phosphatase Ammonia B-Natriuretic Peptide Total Protein Albumin Globulin Albumin/Globulin Ratio TSH Free T4 Cortisol 26.90 H Urine Color Yellow Urine Clarity Sl. Cloudy Urine pH 5.0 Ur Specific [place] 1.015 Urine Protein 15 H Urine Glucose (UA) Normal Urine Ketones Negative Urine Occult Blood Negative Urine Nitrite Negative Urine Bilirubin Negative Urine Urobilinogen 1 H Ur Leukocyte Esterase Negative Urine RBC 0 SEEN Urine WBC 0 SEEN Ur Squamous Epith Cells 0 SEEN Urine Bacteria RARE Hyaline Casts 0-5 SEEN Urine Mucus 0 SEEN Ur Random Sodium Urine Creatinine 84.30 POC Glucose 11/24/19 11/24/19 11/24/19 11:15 12:33 17:18 WBC RBC Hgb Hct MCV MCH MCHC RDW Std Deviation RDW Coeff of Sophie Plt Count MPV Immature Gran % (Auto) Neut % (Auto) Lymph % (Auto) [place] % (Auto) Eos % (Auto) Baso % (Auto) Absolute Neuts (auto) Absolute Lymphs (auto) Nucleated RBC % Platelet Estimate Anisocytosis Macrocytosis Ovalocytes PT INR Specimen Type Sample Site pH Bicarbonate Actual POC Total CO2 Base Excess O2 Saturation ABG pCO2 ABG pO2 O2 Delivery Device Liter Flow Blood Gas Notified Whom Blood Gas Notified Time Sodium Potassium Chloride Carbon Dioxide Anion Gap BUN Creatinine Estim Creat Clear Calc Est GFR (MDRD) Af Amer Est GFR (MDRD) Non-Af BUN/Creatinine Ratio Glucose Hemoglobin A1c Lactic Acid Calcium Phosphorus Magnesium Total Bilirubin Direct Bilirubin AST ALT Alkaline Phosphatase Ammonia B-Natriuretic Peptide Total Protein Albumin Globulin Albumin/Globulin Ratio TSH Free T4 Cortisol Urine Color Urine Clarity Urine pH Ur Specific [place] Urine Protein Urine Glucose (UA) Urine Ketones Urine Occult Blood Urine Nitrite Urine Bilirubin Urine Urobilinogen Ur Leukocyte Esterase Urine RBC Urine WBC Ur Squamous Epith Cells Urine Bacteria Hyaline Casts Urine Mucus Ur Random Sodium 31 Urine Creatinine POC Glucose 93 90 11/24/19 11/25/19 11/25/19 21:26 06:30 06:30 WBC 8.3 RBC 3.07 L Hgb 10.3 L Hct 31.7 L MCV 103.3 H MCH 33.6 H MCHC 32.5 RDW Std Deviation 67.5 H RDW Coeff of Sophie 17.8 H Plt Count 179 MPV 9.9 Immature Gran % (Auto) 0.400 Neut % (Auto) 88.6 H Lymph % (Auto) 5.1 L [place] % (Auto) 3.7 Eos % (Auto) 1.8 Baso % (Auto) 0.4 Absolute Neuts (auto) 7.3 Absolute Lymphs (auto) 0.42 L Nucleated RBC % 0 Platelet Estimate ADEQUATE Anisocytosis RARE Macrocytosis 1+ Ovalocytes PT INR Specimen Type Sample Site pH Bicarbonate Actual POC Total CO2 Base Excess O2 Saturation ABG pCO2 ABG pO2 O2 Delivery Device Liter Flow Blood Gas Notified Whom Blood Gas Notified Time Sodium 143 Potassium 3.7 Chloride 115 H Carbon Dioxide 21.0 Anion Gap 7 BUN 21 H Creatinine 1.92 H Estim Creat Clear Calc 40.16 Est GFR (MDRD) Af Amer 47 L Est GFR (MDRD) Non-Af 39 L BUN/Creatinine Ratio 10.9 Glucose 92 Hemoglobin A1c Lactic Acid Calcium 8.3 L Phosphorus Magnesium Total Bilirubin 0.30 Direct Bilirubin AST 14 L ALT 12 L Alkaline Phosphatase 93 Ammonia B-Natriuretic Peptide Total Protein 5.6 L Albumin 2.1 L Globulin 3.5 Albumin/Globulin Ratio 0.6 L TSH Free T4 Cortisol Urine Color Urine Clarity Urine pH Ur Specific [place] Urine Protein Urine Glucose (UA) Urine Ketones Urine Occult Blood Urine Nitrite Urine Bilirubin Urine Urobilinogen Ur Leukocyte Esterase Urine RBC Urine WBC Ur Squamous Epith Cells Urine Bacteria Hyaline Casts Urine Mucus Ur Random Sodium Urine Creatinine POC Glucose 99 11/25/19 11/25/19 11/25/19 06:30 12:34 16:58 WBC RBC Hgb Hct MCV MCH MCHC RDW Std Deviation RDW Coeff of Sophie Plt Count MPV Immature Gran % (Auto) Neut % (Auto) Lymph % (Auto) [place] % (Auto) Eos % (Auto) Baso % (Auto) Absolute Neuts (auto) Absolute Lymphs (auto) Nucleated RBC % Platelet Estimate Anisocytosis Macrocytosis Ovalocytes PT INR Specimen Type Sample Site pH Bicarbonate Actual POC Total CO2 Base Excess O2 Saturation ABG pCO2 ABG pO2 O2 Delivery Device Liter Flow Blood Gas Notified Whom Blood Gas Notified Time Sodium Potassium Chloride Carbon Dioxide Anion Gap BUN Creatinine Estim Creat Clear Calc Est GFR (MDRD) Af Amer Est GFR (MDRD) Non-Af BUN/Creatinine Ratio Glucose Hemoglobin A1c Lactic Acid Calcium Phosphorus Magnesium 1.4 L Total Bilirubin Direct Bilirubin AST ALT Alkaline Phosphatase Ammonia B-Natriuretic Peptide Total Protein Albumin Globulin Albumin/Globulin Ratio TSH Free T4 Cortisol Urine Color Urine Clarity Urine pH Ur Specific [place] Urine Protein Urine Glucose (UA) Urine Ketones Urine Occult Blood Urine Nitrite Urine Bilirubin Urine Urobilinogen Ur Leukocyte Esterase Urine RBC Urine WBC Ur Squamous Epith Cells Urine Bacteria Hyaline Casts Urine Mucus Ur Random Sodium Urine Creatinine POC Glucose 195 H 144 H 11/25/19 11/26/19 21:02 04:10 WBC RBC Hgb Hct MCV MCH MCHC RDW Std Deviation RDW Coeff of Sophie Plt Count MPV Immature Gran % (Auto) Neut % (Auto) Lymph % (Auto) [place] % (Auto) Eos % (Auto) Baso % (Auto) Absolute Neuts (auto) Absolute Lymphs (auto) Nucleated RBC % Platelet Estimate Anisocytosis Macrocytosis Ovalocytes PT INR Specimen Type Sample Site pH Bicarbonate Actual POC Total CO2 Base Excess O2 Saturation ABG pCO2 ABG pO2 O2 Delivery Device Liter Flow Blood Gas Notified Whom Blood Gas Notified Time Sodium 142 Potassium 3.4 L Chloride 111 H Carbon Dioxide 23.0 Anion Gap BUN 29 H Creatinine 1.39 H Estim Creat Clear Calc 55.48 Est GFR (MDRD) Af Amer 68 Est GFR (MDRD) Non-Af 56 L BUN/Creatinine Ratio 20.9 H Glucose 102 Hemoglobin A1c Lactic Acid Calcium 8.3 L Phosphorus 2.4 L Magnesium 1.5 L Total Bilirubin Direct Bilirubin AST ALT Alkaline Phosphatase Ammonia B-Natriuretic Peptide Total Protein Albumin 2.0 L Globulin Albumin/Globulin Ratio TSH Free T4 Cortisol Urine Color Urine Clarity Urine pH Ur Specific [place] Urine Protein Urine Glucose (UA) Urine Ketones Urine Occult Blood Urine Nitrite Urine Bilirubin Urine Urobilinogen Ur Leukocyte Esterase Urine RBC Urine WBC Ur Squamous Epith Cells Urine Bacteria Hyaline Casts Urine Mucus Ur Random Sodium Urine Creatinine POC Glucose 127 H Microbiology 11/24/19 13:30 Urine Catheter - Catheter Urine Culture - Preliminary Culture exhibits no growth. Clinical Impression(s) from Imaging Studies Chest X-Ray 11/23/19 17:58 IMPRESSION: Left apical pleural thickening. Left apical airspace disease with air bronchograms noted. Degenerative changes of the thoracic spine. Findings appear similar allowing for differences in radiographic technique to the previous study of 10/21/2019. Electronically Signed: Monroe Henderson MD at 22:34 EDT , Service support , Renal Ultrasound 11/24/19 05:55 IMPRESSION: There is a 1.5 cm left renal cyst. There is no evidence of hydronephrosis. Electronically Signed: Hilda Sahu, at 11:30 EDT Tel , Service support , Brain CT 11/24/19 06:39 IMPRESSION: Chronic involutional changes of the brain. There is NO hemorrhage, edema, mass, mass effect or midline shift. Electronically Signed: Ken Allen MD at 7:19 EDT , Service support , Chest X-Ray 11/24/19 12:21 IMPRESSION: Central catheter placement. No pneumothorax. Stable left upper lung consolidation. Increasing lower lung infiltrates or edema. Electronically Signed: Joel Mclaughlin MD at 13:50 EDT , Service support , Medical Necessity - Tobacco Use Smoking Status: Current every day smoker Tobacco Use: Cigarettes Assessment/Plan All Active Problems (Last Reviewed 10/19/19 @ 14:[address] Tiffany Newell, DO) Chronic diarrhea (Resolved) History of illicit drug use (Resolved) Iron deficiency anemia (Resolved) RECOMMENDATIONS: 1. Encourage BiPAP utilization with naps and nightly. 2. Continue scheduled aerosol treatments. 3. Continue appropriate DVT prophylaxis. 4. Continue empiric antimicrobials. 5. Start nicotine replacement therapy. 6. Encourage incentive spirometer use and mobilize patient as tolerated. 7. The patient is medically stable for transfer out of the intensive care unit. IMPRESSIONS: 1. Acute kidney injury Improving. Likely prerenal in etiology and related to hemodynamic instability. Nephrology is currently following. Renal ultrasound was unremarkable. Will monitor urine output accordingly. No current indication for renal replacement therapy. Avoid nephrotoxic medications. 2. Undifferentiated shock Resolved. Unclear etiology. Concern for hypovolemic versus distributive etiologies. At the present time, the patient is not demonstrating any systemic signs of infection. However, given that repeat x-ray revealed some possible bibasilar changes, the patient was placed on empiric antimicrobials, should this represent an evolving pulmonary infectious process. Cosyntropin stimulation test was not consistent with adrenal insufficiency. The patient was able to be weaned off of all forms of vasopressor therapy on November 24. He remains hemodynamically stable. 3. Encephalopathy Resolved. Likely metabolic in nature. In addition, arterial blood gas did reveal some CO2 retention. He has responded appropriately to the use of noninvasive positive pressure ventilatory support. There is no concern for recurrent seizure activity. No need for antiepileptic medications. Continue to withhold sedating medications. Recommend continued BiPAP support with naps and nightly. 4. Hypomagnesemia/hypokalemia Additional electrolyte repletion as ordered. 5. Anemia/history of left Pancoast tumor/non-small cell lung cancer/tobacco dependency/GERD/diabetes mellitus Complicates care, management, recovery and prognosis. The patient does continue to smoke cigarettes. Nicotine replacement therapy can be offered while admitted to the hospital. Physical therapy to work with the patient. This note was generated with [employer] dictation software. It may contain incorrect words, spelling, and punctuation that were not noted in checking the note before signing. Inpatient E&M: 88706 Subs Hosp L3
--- NOTE | 2019-11-26 07:59 | PN.RENAL_ITS ---
Objective: Following for EVERARDO. Pt denies CP, SOB or nausea. No vomiting or diarrhea. Appetite is OK. - Physical Exam Vitals/I&O's: Vital Signs Temp Pulse Resp BP Pulse Ox 99.7 F H 79 15 142/70 H 98 11/26/19 06:00 11/26/19 06:00 11/26/19 06:00 11/26/19 06:00 11/26/19 06:00 Oxygen Flow Rate (L/min) 1 Oxygen Delivery Method Room Air Weight: 77.2 kg Body Mass Index (BMI) 25.7 Intake and Output for Last 24 Hours 11/24/19 11/25/19 11/26/19 23:59 23:59 23:59 Intake Total 5111.25 / 5111.25 3500.99 / 3500.99 371.87 / 371.87 Output Total 3975 / 3975 5400 / 5400 775 / 775 Balance 1136.25 / 1136.25 -1899.01 / -1899.01 -403.13 / -403.13 General: Alert, Oriented x3 HEENT: Atraumatic, EOMI Oral: Moist Mucosa Neck: Supple Lungs: Clear to auscultation Cardiovascular: Normal S1, Normal S2, No murmurs Abdomen: Bowel Sounds Present, Soft, Non Tender Extremities: No edema Microbiology Past 72 Hours 11/24/19 13:30 Urine Catheter - Catheter Urine Culture - Preliminary Culture exhibits no growth. Laboratory Results 11/25/19 06:30: Magnesium 1.4 L 11/25/19 12:34: POC Glucose 195 H 11/25/19 16:58: POC Glucose 144 H 11/25/19 21:02: POC Glucose 127 H 11/26/19 04:10: Sodium 142, Potassium 3.4 L, Chloride 111 H, Carbon Dioxide 23.0, BUN 29 H, Creatinine 1.39 H, Estim Creat Clear Calc 55.48, Est GFR (MDRD) Af Amer 68, Est GFR (MDRD) Non-Af 56 L, BUN/Creatinine Ratio 20.9 H, Glucose 102, Calcium 8.3 L, Phosphorus 2.4 L, Magnesium 1.5 L, Albumin 2.0 L Current Medications Acetaminophen (Tylenol) 650 mg PO Q6H PRN PRN PRN Reason: Pain Score 1-10/Temp > 100.7 F Last Admin: 11/25/19 22:08 Dose: 650 mg Documented by: Albuterol Sulfate (Ventolin Aerosols) 2.5 mg INHALATION Q2H PRN PRN PRN Reason: SOB/Wheezing Albuterol/Ipratropium (Duoneb) 3 ml INHALATION Q6HWA.RT [facility] Last Admin: 11/25/19 19:08 Dose: 3 ml Documented by: Calcium Carbonate (Tums) 500 mg PO BIDCM [facility] Last Admin: 11/25/19 17:00 Dose: Not Given Documented by: Ciprofloxacin HCl (Ciloxan) 2 drop EACH EYE Q4 [facility] Ergocalciferol (Vitamin D) 50,000 unit PO WE [facility] Heparin Sodium (Porcine) (Heparin Na) 5,000 unit SC Q12 [facility] Last Admin: 11/25/19 21:09 Dose: 5,000 unit Documented by: Sodium Chloride () 250 mls @ 15 mls/hr IV .[id number] PRN PRN Reason: Saline Flush Sodium Chloride () 250 mls @ 15 mls/hr IV .[id number] PRN PRN Reason: Additional IVPB Infusion Norepinephrine Bitartrate 8 mg (/ Sodium Chloride) 250 mls @ 9.375 mls/hr CONT INF .[id number] [facility]; Protocol Last Titration: 11/25/19 18:00 Dose: 0 mcg/min, 0 mls/hr Documented by: Pantoprazole Sodium 40 mg/ (Sodium Chloride) 110 mls @ 330 mls/hr IV Q24 [facility] Last Infusion: 11/25/19 10:26 Dose: Infused Documented by: Piperacillin Sod/Tazobactam (Sod 3.375 gm/ Sodium Chloride) 50 mls @ 12.5 mls/hr IV Q8 [facility] Last Admin: 11/26/19 05:30 Dose: 12.5 mls/hr Documented by: Insulin Human Lispro (Humalog Kwikpen (Bkc)) 0 unit SC ACHS [facility]; Protocol Last Admin: 11/26/19 07:42 Dose: Not Given Documented by: Levothyroxine Sodium (Synthroid) 75 mcg PO DAILY@0600 [facility] Last Admin: 11/26/19 05:29 Dose: 75 mcg Documented by: Nicotine (Nicoderm Cq (Pbkc)) 14 mg TRANSDERM. DAILY [facility] Nitroglycerin (Nitrostat) 0.4 mg SUBLINGUAL Q5M PRN PRN Reason: CARDIAC/CHEST PAIN Promethazine HCl (Phenergan) 6.25 mg IV Q6H PRN PRN PRN Reason: NAUSEA/VOMITING Senna/Docusate Sodium (Senokot-S, Linda-Colace) 2 tablet PO BID PRN PRN PRN Reason: Constipation Sodium Chloride () 10 - 40 ml IV UD PRN PRN Reason: SALINE FLUSH Last Admin: 11/26/19 05:30 Dose: 10 ml Documented by: Medical Necessity - Tobacco Use Smoking Status: Current every day smoker Tobacco Use: Cigarettes Assessment/Plan All Active Problems (Last Reviewed 10/19/19 @ 14:[address] Tiffany Newell, DO) Chronic diarrhea (Resolved) History of illicit drug use (Resolved) Iron deficiency anemia (Resolved) Assesment: EVERARDO is likely prerenal due to prior hypotension-resolving Hyponatremia-resolved Hypotension-resolved hyperphosphatemia-resolved, phosphorus is actually low now hypomagnesemia-Mg still low at 1.5 today, likely due to polyuria hypokalemia-mild, likely due to polyuria and low Mg. Metastatic lung adenocarcinoma s/p chemotherapy with immune checkpoint inhibitors Plan: Scr 1.39, renal function is continuing to improve with better BP and renal perfusion. No need for dialysis. Continue current supportive care to keep MAP>65. He is polyuric which is causing K and Mg wasting. Will watch for hypernatremia. Give Kphos to replace deficit. Replace Mg deficit. Recheck Mg and phosphorus in am. Suspect polyuria will get better in the next 1-2 days. If not, I will work up.
[2019-11-26] MEDS: Calcium Carbonate 500 MG Tablet PO ×2 (08:00→16:34)
[2019-11-26] MEDS: Magnesium Sulfate 4gm/100mL 4 GM/100 ML IV.SOLN. IV (08:50)
[2019-11-26] MEDS: Enoxaparin 40 MG/0.4 ML Syringe SC (09:23)
[2019-11-26] MEDS: Ciprofloxacin 0.3% 2.5ml Bottle 2 DRP EACH EYE ×4 (09:24→21:23)
[2019-11-26] MEDS: Pantoprazole Sodium 40 MG Tablet PO (09:24)
[2019-11-26] MEDS: Ipratropium/Albuterol Sulfate 3 ML AMPUL.NEB INHALATION ×2 (13:24→18:25)
--- NOTE | 2019-11-26 13:33 | PCM.PN.HOSP ---
Reason for Visit: Hypotension, acute kidney injury Objective: Patient off norepinephrine drip. Maintaining his blood pressure. Awake and alert. Afebrile. He pulled his right CVC catheter. He was on BiPAP for about 2 and half hours yesterday. Vitals/I&O's: Vital Signs Temp Pulse Resp BP Pulse Ox 100 F H 82 16 123/69 H 98 11/26/19 08:00 11/26/19 13:25 11/26/19 13:25 11/26/19 08:00 11/26/19 08:00 Oxygen Flow Rate (L/min) 1 Oxygen Delivery Method Room Air Weight: 170 lb 3.15 oz Body Mass Index (BMI) 25.7 Intake and Output for Last 24 Hours 11/24/19 11/25/19 11/26/19 23:59 23:59 23:59 Intake Total 5111.25 / 5111.25 3500.99 / 3500.99 701.87 / 701.87 Output Total 3975 / 3975 5400 / 5400 1625 / 1625 Balance 1136.25 / 1136.25 -1899.01 / -1899.01 -923.13 / -923.13 General: Alert, Oriented x3, Cooperative HEENT: Atraumatic, PERRLA, EOMI, Normocephalic Neck: Supple, No JVD, Negative Carotid Bruits Lungs: Clear to auscultation, No rhonchi, No wheeze, No rales, Diminished Cardiovascular: Regular rate, Regular Rhythm, Normal S1, Normal S2, No murmurs Abdomen: Bowel Sounds Present, Soft, Non Tender, Non-Distended Extremities: No edema, Capillary Refill Less than 3 Seconds Skin: No rashes, No breakdown Musculoskeletal: No Tenderness to Palpation of Joints or Extremities, Arthritic Changes Neurological: Cranial nerves II-XII grossly intact, Deep Tendon Reflexes 2+/4 and Symmetrical, Neuro grossly intact, - - No abnormal movements including myoclonic jerk or seizure. Psych/Mental Status: Normal Affect, Appropriate Microbiology Past 72 Hours 11/24/19 16:15 Blood Culture (Wb) - Left Hand Blood Culture - Preliminary No growth in 48 hours. 11/24/19 14:00 Blood Culture (Wb) - Line Draw Blood Culture - Preliminary No growth in 48 hours. 05/22/20 13:30 Urine Catheter - Catheter Urine Culture - Final Culture exhibits no growth. Laboratory Results 11/25/19 16:58: POC Glucose 144 H 11/25/19 21:02: POC Glucose 127 H 11/26/19 04:10: Sodium 142, Potassium 3.4 L, Chloride 111 H, Carbon Dioxide 23.0, BUN 29 H, Creatinine 1.39 H, Estim Creat Clear Calc 55.48, Est GFR (MDRD) Af Amer 68, Est GFR (MDRD) Non-Af 56 L, BUN/Creatinine Ratio 20.9 H, Glucose 102, Calcium 8.3 L, Phosphorus 2.4 L, Magnesium 1.5 L, Albumin 2.0 L Current Medications Acetaminophen (Tylenol) 650 mg PO Q6H PRN PRN PRN Reason: Pain Score 1-10/Temp > 100.7 F Last Admin: 11/25/19 22:08 Dose: 650 mg Documented by: Albuterol Sulfate (Ventolin Aerosols) 2.5 mg INHALATION Q2H PRN PRN PRN Reason: SOB/Wheezing Albuterol/Ipratropium (Duoneb) 3 ml INHALATION Q6HWA.RT [facility] Last Admin: 11/26/19 13:24 Dose: 3 ml Documented by: Calcium Carbonate (Tums) 500 mg PO BIDCM [facility] Last Admin: 11/26/19 08:00 Dose: 500 mg Documented by: Ciprofloxacin HCl (Ciloxan) 2 drop EACH EYE Q4 [facility] Last Admin: 11/26/19 09:24 Dose: 2 drop Documented by: Enoxaparin Sodium (Lovenox) 40 mg SC DAILY [facility] Last Admin: 11/26/19 09:23 Dose: 40 mg Documented by: Ergocalciferol (Vitamin D) 50,000 unit PO WE [facility] Sodium Chloride () 250 mls @ 15 mls/hr IV .[id number] PRN PRN Reason: Saline Flush Sodium Chloride () 250 mls @ 15 mls/hr IV .[id number] PRN PRN Reason: Additional IVPB Infusion Piperacillin Sod/Tazobactam (Sod 3.375 gm/ Sodium Chloride) 50 mls @ 12.5 mls/hr IV Q8 [facility] Last Infusion: 11/26/19 09:30 Dose: Infused Documented by: Potassium Phosphate 30 mm/ (Sodium Chloride) 260 mls @ 42 mls/hr IV X1 ONE Stop: 11/26/19 14:41 Last Admin: 11/26/19 09:23 Dose: 42 mls/hr Documented by: Levothyroxine Sodium (Synthroid) 75 mcg PO DAILY@0600 [facility] Last Admin: 11/26/19 05:29 Dose: 75 mcg Documented by: Nicotine (Nicoderm Cq (Pbkc)) 14 mg TRANSDERM. DAILY [facility] Last Admin: 11/26/19 09:24 Dose: 14 mg Documented by: Nitroglycerin (Nitrostat) 0.4 mg SUBLINGUAL Q5M PRN PRN Reason: CARDIAC/CHEST PAIN Pantoprazole Sodium (Protonix) 40 mg PO DAILY [facility] Last Admin: 11/26/19 09:24 Dose: 40 mg Documented by: Promethazine HCl (Phenergan) 6.25 mg IV Q6H PRN PRN PRN Reason: NAUSEA/VOMITING Senna/Docusate Sodium (Senokot-S, Linda-Colace) 2 tablet PO BID PRN PRN PRN Reason: Constipation Sodium Chloride () 10 - 40 ml IV UD PRN PRN Reason: SALINE FLUSH Last Admin: 11/26/19 05:30 Dose: 10 ml Documented by: STROKE Vital Signs/Narrative: Vital Signs Pulse Resp 11/26/19 13:25 82 16 11/26/19 12:00 78 Medical Necessity - Tobacco Use Smoking Status: Current every day smoker Tobacco Use: Cigarettes Assessment/Plan All Active Problems (Last Reviewed 10/19/19 @ 14:[address] 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 Harper was sent from chemotherapy center after he was found acute kidney injury. Patient has noticed low blood pressure for 3 to 4 weeks with blood pressure, systolic running in 80s which used to be high, hypertension prior to chemo. 1. Acute kidney injury most probably prerenal/volume deficit/hypotension, with suspicion of ATN from prolonged hypotension/chemotherapy: Initially patient was admitted in PCU and then transferred to ICU. Patient also had EVERARDO on admission on October 09, 2019. 11/23: Urine lites shows FeNa1%, suggestive of prerenal but this was after hydration so possible ATN from prolonged hypotension. Kidney/bladder ultrasound results no evidence of hydronephrosis normal size and cortex of both kidneys. Incidental 1.5 cm left renal cyst. Discussed with the director graphics. 11/24: Creatinine is improving; BUN/creatinine 21/1.92. Likely prerenal. Continue vasopressor support to maintain map more than 65. Started scheduled midodrine 10 mg daily. Urine output about 4 L yesterday. Positive fluid balance 2.2 L. 11/25: Patient had about 5400 mL urine output last 24 hours. Probably, diuretic phase of acute kidney injury. Intake and output is matched. BUN/creatinine 29/1.39. K3.4. Patient has mild hypokalemia, hypomagnesemia and hypophosphatemia. Electrolytes being replaced. 2. Shock with hypotension, prolonged for about 3 weeks, etiology unclear possible hypovolemic versus distributive: Patient is transferred to ICU. Starting on Levophed. [employer] and director graphics consult. Monitor intake and output. Meza catheter inserted. Cosyntropin was done shows appropriate response. TSH 0.91, free T4 0.68 possible suggestive of euthyroid sick syndrome. Repeat chest x-ray shows right IJ CVC catheter and increasing lower lung infiltrates therefore empirically on IV antibiotic Zosyn. Urine culture shows no growth. Blood cultures x2 no growth more than 48 hours 11/25: Patient maintaining blood pressure off levo fed for about 24 hours. Hemodynamically stable and is being transferred to PCU. 3. Acute hypoxic and hypercarbic respiratory failure, with altered mental status/acute metabolic encephalopathy: ABG shows 7.13/50 6/144 on 6 L nasal cannula. Input has improved. Currently on nasal cannula with rescue BiPAP. Patient has history of left lung metastatic adenocarcinoma history of radiation and current chemotherapy; being managed by Dr. Harper 11/25: Patient is maintaining 98% on room air. Acute respiratory failure resolved 4. Myoclonic jerking with history of seizure: History of seizure secondary to profound hypocalcemia during previous admission for closed right hip fracture with toxic/metabolic encephalopathy in October 2019. Patient was given Keppra 500 mg IV. 11/26: Seen by neurologist on 11/23. Shows myoclonic due to acute kidney injury/metabolic derangement. No evidence of recurrent seizure. No need for seizure medication. 5.. Chronic normocytic normochromic anemia most probably secondary to neoplasm/chemotherapy and thrombocytopenia: H&H and platelet count is stable. 6.. Type 2 diabetes mellitus: Patient stated his blood sugar well controlled after diagnosis of cancer and chemotherapy most probably from weight loss: Glucose 71. Regular diet. 7. Hypertension: Blood pressure is controlled 8. Other comorbidities include major depression, history of QT prolongation, closed right hip fracture status post replacement, peripheral neuropathy, hypothyroidism, GERD, Breen's esophagus, chronic hepatitis C, chronic substance use/narcotic use: Multiple comorbidities complicates the present care and expect difficult and delay recovery. The patient was taken off QT prolonging medications including Seroquel and citalopram DVT prophylaxis: Heparin 5000 UNITS subcutaneous twice daily Total time of the visit including total time spent in counseling or coordination of care, (more than 50% of the total time, spent in obtaining medical information from nurses and other ancillary care providers), coordination with consultants, review of labs and imaging is 30 minutes Living will/advanced directive/end of life care: DNR CC arrest Patient does not want artificial life support including intubation, tube feed, ventilator and/chest compression, and DC shock if needed. After talking to patient's mother Ms. Romero, she desired vaso-pressor therapy for blood pressure support DNR CC arrest. Total time spent in [id number] encounter in discussion of advanced directive 16 minutes. Microbiology Past 72 Hours 11/24/19 13:30 Urine Catheter - Catheter Urine Culture - Preliminary Culture exhibits no growth. Laboratory Results 11/24/19 12:33: POC Glucose 93 11/24/19 17:18: POC Glucose 90 11/24/19 21:26: POC Glucose 99 11/25/19 06:30: WBC 8.3, RBC 3.07 L, Hgb 10.3 L, Hct 31.7 L, MCV 103.3 H, MCH 33.6 H, MCHC 32.5, RDW Std Deviation 67.5 H, RDW Coeff of Sophie 17.8 H, Plt Count 179, MPV 9.9, Immature Gran % (Auto) 0.400, Neut % (Auto) 88.6 H, Lymph % (Auto) 5.1 L, [place] % (Auto) 3.7, Eos % (Auto) 1.8, Baso % (Auto) 0.4, Absolute Neuts (auto) 7.3, Absolute Lymphs (auto) 0.42 L, Nucleated RBC % 0, Platelet Estimate ADEQUATE, Anisocytosis RARE, Macrocytosis 1+ 11/25/19 06:30: Sodium 143, Potassium 3.7, Chloride 115 H, Carbon Dioxide 21.0, Anion Gap 7, BUN 21 H, Creatinine 1.92 H, Estim Creat Clear Calc 40.16, Est GFR (MDRD) Af Amer 47 L, Est GFR (MDRD) Non-Af 39 L, BUN/Creatinine Ratio 10.9, Glucose 92, Calcium 8.3 L, Total Bilirubin 0.30, AST 14 L, ALT 12 L, Alkaline Phosphatase 93, Total Protein 5.6 L, Albumin 2.1 L, Globulin 3.5, Albumin/Globulin Ratio 0.6 L 11/25/19 06:30: Magnesium 1.4 L Clinical Impression(s) from Imaging Studies Chest X-Ray 11/23/19 17:58 IMPRESSION: Left apical pleural thickening. Left apical airspace disease with air bronchograms noted. Degenerative changes of the thoracic spine. Findings appear similar allowing for differences in radiographic technique to the previous study of 10/21/2019. Renal Ultrasound 11/24/19 05:55 IMPRESSION: There is a 1.5 cm left renal cyst. There is no evidence of hydronephrosis. Brain CT 11/24/19 06:39 IMPRESSION: Chronic involutional changes of the brain. There is NO hemorrhage, edema, mass, mass effect or midline shift. Inpatient E&M: 50824 Subs Hosp L3
--- NOTE | 2019-11-26 13:48 | NURSING ---
report called to Rosalinda RN at [phone] mother on patient condition and change to new unit
[2019-11-26] MEDS: Acetaminophen 325 MG Tablet 650 MG PO ×2 (14:12→23:11)
[2019-11-27] VITALS (13 sets, daily range): BP systolic 109–145; BP diastolic 57–78; PULSE 78–95; RESP 12–20; TEMP 37.3–38.2; O2SAT 96–99
[2019-11-27 02:04] LABS: Absolute Lymphocyte Count 0.48 X10^3/uL (0.83-4.51); Absolute Neutrophil Count 7.9 X10^3/uL (2.0-7.7); Basophil# 0.01 X10^3/uL; Basophil% 0.1 % (0-1); Eosinophil# 0.05 X10^3/uL; Eosinophils% 0.6 % (0-5); Hematocrit 27.7 % (40-54); Hemoglobin 9.3 g/dL (13.0-16.5); Lymphocyte # 0.48 X10^3/ul (4.0); Lymphocyte % 5.6 % (19-41); Mean Corp Hgb Conc 33.6 g/dL (32-36); Mean Corpuscular Hgb 33.3 pg (27.0-32.0); Mean Corpuscular Volume 99.3 fL (80-94); Mean Platelet Vol. 10.5 fl (6.2-12.0); Monocyte# 0.11 X10^3/uL; Monocyte% 1.3 % (0-10); NRBC Flagged by Analyzer 0 % (0-5); Neutrophil # 7.87 X10^3/uL (2.7-7.7); Neutrophil % 91.8 % (47-70); POSITIVE DIFFERENTIAL YES; POSITIVE MORPHOLOGY YES; Platelet Count 157 K/mm3 (150-450); RBC Distribution Width CV 17.9 % (11.6-14.6); RBC Distribution Width SD 65.3 fl (35.1-43.9); Red Blood Count 2.79 M/mm3 (4.6-6.2); White Blood Count 8.6 K/mm3 (4.4-11.0)
[2019-11-27 02:05] LABS: Differential Indicated SCAN CRITERIA MET
[2019-11-27 02:24] LABS: Albumin, Serum 2.1 g/dL (3.2-5.0); BUN 20 mg/dL (7-18); BUN/Creat Ratio 17.4 RATIO (10-20); Calcium,Total 8.6 mg/dL (8.5-10.1); Chloride 109 mmol/L (98-107); Creatinine, Serum 1.15 mg/dL (0.70-1.30); EST Glomerular Filtration Rate 70 mL/min (>60); Est Glom Filt Rate - Afr Amer 84 mL/min (>60); Estimated Creatinine Clearance 67.06 ml/min; Glucose 110 mg/dL (74-106); Magnesium 1.5 mg/dL (1.6-2.6); Phosphorus 3.2 mg/dL (2.5-4.9); Potassium 3.4 mmol/L (3.5-5.1); Sodium Level 141 mmol/L (136-145)
[2019-11-27] MEDS: Ciprofloxacin 0.3% 2.5ml Bottle 2 DRP EACH EYE ×6 (02:38→21:20)
[2019-11-27 02:45] LABS: Differential Comment SCANNED
[2019-11-27] MEDS: Levothyroxine 75 MCG Tablet PO (06:29)
[2019-11-27] MEDS: Acetaminophen 325 MG Tablet 650 MG PO ×2 (06:33→16:08)
--- NOTE | 2019-11-27 08:03 | PCM.PN.REN ---
Subjective: Following for EVERARDO, electrolytes abnormality. Pt has loose BMs. He denies CP, SOB, nausea or vomiting. Appetite is OK. - Physical Exam Vitals/I&O's: Vital Signs Temp Pulse Resp BP Pulse Ox 100.0 F H 84 16 117/57 L 98 11/27/19 06:34 11/27/19 02:59 11/27/19 02:40 11/27/19 02:40 11/27/19 02:40 Oxygen Flow Rate (L/min) 1 Oxygen Delivery Method Room Air Weight: 76.5 kg Body Mass Index (BMI) 25.7 Intake and Output for Last 24 Hours 11/25/19 11/26/19 11/27/19 23:59 23:59 23:59 Intake Total 3500.99 / 3500.99 1831.87 / 1831.87 290 / 290 Output Total 5400 / 5400 2049 / 2049 Balance -1899.01 / -1899.01 -218.13 / -218.13 290 / 290 General: Alert, Oriented x3 HEENT: Atraumatic, Normocephalic Oral: Moist Mucosa Neck: Supple Lungs: Clear to auscultation Cardiovascular: Normal S1, Normal S2, No murmurs Abdomen: Bowel Sounds Present, Soft, Non Tender Extremities: No edema Microbiology Past 72 Hours 11/24/19 16:15 Blood Culture (Wb) - Left Hand Blood Culture - Preliminary No growth in 48 hours. 11/24/19 14:00 Blood Culture (Wb) - Line Draw Blood Culture - Preliminary No growth in 48 hours. 11/24/19 13:30 Urine Catheter - Catheter Urine Culture - Final Culture exhibits no growth. Laboratory Results 11/27/19 01:46: Sodium 141, Potassium 3.4 L, Chloride 109 H, Carbon Dioxide 27.0, BUN 20 H, Creatinine 1.15, Estim Creat Clear Calc 67.06, Est GFR (MDRD) Af Amer 84, Est GFR (MDRD) Non-Af 70, BUN/Creatinine Ratio 17.4, Glucose 110 H, Calcium 8.6, Phosphorus 3.2, Magnesium 1.5 L, Albumin 2.1 L 11/27/19 01:46: WBC 8.6, RBC 2.79 L, Hgb 9.3 L, Hct 27.7 L, MCV 99.3 H, MCH 33.3 H, MCHC 33.6, RDW Std Deviation 65.3 H, RDW Coeff of Sophie 17.9 H, Plt Count 157, MPV 10.5, Immature Gran % (Auto) 0.600, Neut % (Auto) 91.8 H, Lymph % (Auto) 5.6 L, [place] % (Auto) 1.3, Eos % (Auto) 0.6, Baso % (Auto) 0.1, Absolute Neuts (auto) 7.9 H, Absolute Lymphs (auto) 0.48 L, Nucleated RBC % 0, Differential Comment SCANNED Current Medications Acetaminophen (Tylenol) 650 mg PO Q6H PRN PRN PRN Reason: Pain Score 1-10/Temp > 100.7 F Last Admin: 11/27/19 06:33 Dose: 650 mg Documented by: Albuterol Sulfate (Ventolin Aerosols) 2.5 mg INHALATION Q2H PRN PRN PRN Reason: SOB/Wheezing Albuterol/Ipratropium (Duoneb) 3 ml INHALATION Q6HWA.RT [facility] Last Admin: 11/27/19 07:10 Dose: Not Given Documented by: Calcium Carbonate (Tums) 500 mg PO BIDCM [facility] Last Admin: 11/26/19 16:34 Dose: 500 mg Documented by: Ciprofloxacin HCl (Ciloxan) 2 drop EACH EYE Q4 [facility] Last Admin: 11/27/19 06:26 Dose: 2 drop Documented by: Enoxaparin Sodium (Lovenox) 40 mg SC DAILY [facility] Last Admin: 11/26/19 09:23 Dose: 40 mg Documented by: Ergocalciferol (Vitamin D) 50,000 unit PO WE [facility] Sodium Chloride () 250 mls @ 15 mls/hr IV .[id number] PRN PRN Reason: Saline Flush Sodium Chloride () 250 mls @ 15 mls/hr IV .[id number] PRN PRN Reason: Additional IVPB Infusion Piperacillin Sod/Tazobactam (Sod 3.375 gm/ Sodium Chloride) 50 mls @ 12.5 mls/hr IV Q8 [facility] Last Admin: 11/27/19 06:26 Dose: 12.5 mls/hr Documented by: Levothyroxine Sodium (Synthroid) 75 mcg PO DAILY@0600 [facility] Last Admin: 05/25/20 06:29 Dose: 75 mcg Documented by: [facility]Ox 400) [facility] Nicotine (Nicoderm Cq (Pbkc)) 14 mg TRANSDERM. DAILY [facility] Last Admin: 11/26/19 09:24 Dose: 14 mg Documented by: Nitroglycerin (Nitrostat) 0.4 mg SUBLINGUAL Q5M PRN PRN Reason: CARDIAC/CHEST PAIN Pantoprazole Sodium (Protonix) 40 mg PO DAILY [facility] Last Admin: 11/26/19 09:24 Dose: 40 mg Documented by: Promethazine HCl (Phenergan) 6.25 mg IV Q6H PRN PRN PRN Reason: NAUSEA/VOMITING Senna/Docusate Sodium (Senokot-S, Linda-Colace) 2 tablet PO BID PRN PRN PRN Reason: Constipation Sodium Chloride () 10 - 40 ml IV UD PRN PRN Reason: SALINE FLUSH Last Admin: 11/26/19 05:30 Dose: 10 ml Documented by: Medical Necessity - Tobacco Use Smoking Status: Current every day smoker Tobacco Use: Cigarettes Assessment/Plan All Active Problems (Last Reviewed 10/19/19 @ 14:[address] Tiffany Newell, DO) Chronic diarrhea (Resolved) History of illicit drug use (Resolved) Iron deficiency anemia (Resolved) Assesment: EVERARDO is likely prerenal due to prior hypotension-resolving; SCr peaked at 4.68 on 11/23/19. Hyponatremia-resolved Hypotension-resolved hypophosphatemia-better (got Kphos on 11/26/19) hypomagnesemia-Mg still low at 1.5 today, likely due to prior polyuria and diarrhea hypokalemia-mild, likely due to prior polyuria, low Mg and diarrhea. Metastatic lung adenocarcinoma s/p chemotherapy with immune checkpoint inhibitors Plan: Scr is better at 1.15, renal function is continuing to improve with better BP and renal perfusion. No need for dialysis. Continue current supportive care to keep MAP>65. He was polyuric which was causing K and Mg wasting. Will watch for hypernatremia. Polyuria has improved as expected with renal function recovery. Replace K and Mg deficit. Recheck K, Mg and phosphorus in am.
--- NOTE | 2019-11-27 10:05 | PN_ITS ---
Subjective: Patient transferred out of the intensive care unit yesterday. No acute issues were reported. Patient is reporting some mild back and hip pain that he associates with his bed in the chair. Patient has not been using BiPAP regularly. Patient is not reporting any cough this morning. General: Alert, Oriented x3, Cooperative, No apparent distress, - - Appears older than stated age. No conversational dyspnea. HEENT: Atraumatic, PERRLA, EOMI, Normocephalic, - - Slight scleral injection without icterus Oral: Moist Mucosa, No Gingival or Mucosal Lesions/ Ulcerations Neck: Supple, No JVD, No Nodes, Trachea Midline Lungs: No rhonchi, No wheeze, No rales, Diminished, - - Symmetric expansion. Cardiovascular: Regular rate, Regular Rhythm, Normal S1, Normal S2, No murmurs, No rub noted, No Gallop Abdomen: Bowel Sounds Present, Soft, Non Tender, Non-Distended Extremities: No clubbing, No cyanosis, No edema, Capillary Refill Less than 3 Seconds Skin: No rashes, No breakdown Musculoskeletal: No Tenderness to Palpation of Joints or Extremities Lymphatic: No Cervical, Supraclavicular, or Inguinal Adenopathy Neurological: Cranial nerves II-XII grossly intact, Neuro grossly intact, Motor Exam 5/5 strength throughout Psych/Mental Status: Normal Affect, Appropriate Vital Signs Temp Pulse Resp BP Pulse Ox 37.7 C H 89 18 109/69 97 11/27/19 08:40 11/27/19 08:40 11/27/19 08:40 11/27/19 08:40 11/27/19 08:40 Oxygen Flow Rate (L/min) 1 Oxygen Delivery Method Room Air Weight: 76.5 kg Body Mass Index (BMI) 25.7 Intake and Output for Last 24 Hours 11/25/19 11/26/19 11/27/19 23:59 23:59 23:59 Intake Total 3500.99 / 3500.99 1831.87 / 1831.87 290 / 290 Output Total 5400 / 5400 2049 / 2049 Balance -1899.01 / -1899.01 -218.13 / -218.13 290 / 290 Labs (Last 48 Hours) 11/25/19 11/25/19 11/25/19 12:34 16:58 21:02 WBC RBC Hgb Hct MCV MCH MCHC RDW Std Deviation RDW Coeff of Sophie Plt Count MPV Immature Gran % (Auto) Neut % (Auto) Lymph % (Auto) [place] % (Auto) Eos % (Auto) Baso % (Auto) Absolute Neuts (auto) Absolute Lymphs (auto) Nucleated RBC % Differential Comment Sodium Potassium Chloride Carbon Dioxide BUN Creatinine Estim Creat Clear Calc Est GFR (MDRD) Af Amer Est GFR (MDRD) Non-Af BUN/Creatinine Ratio Glucose Calcium Phosphorus Magnesium Albumin POC Glucose 195 H 144 H 127 H 11/26/19 11/27/19 11/27/19 04:10 01:46 01:46 WBC 8.6 RBC 2.79 L Hgb 9.3 L Hct 27.7 L MCV 99.3 H MCH 33.3 H MCHC 33.6 RDW Std Deviation 65.3 H RDW Coeff of Sophie 17.9 H Plt Count 157 MPV 10.5 Immature Gran % (Auto) 0.600 Neut % (Auto) 91.8 H Lymph % (Auto) 5.6 L [place] % (Auto) 1.3 Eos % (Auto) 0.6 Baso % (Auto) 0.1 Absolute Neuts (auto) 7.9 H Absolute Lymphs (auto) 0.48 L Nucleated RBC % 0 Differential Comment SCANNED Sodium 142 141 Potassium 3.4 L 3.4 L Chloride 111 H 109 H Carbon Dioxide 23.0 27.0 BUN 29 H 20 H Creatinine 1.39 H 1.15 Estim Creat Clear Calc 55.48 67.06 Est GFR (MDRD) Af Amer 68 84 Est GFR (MDRD) Non-Af 56 L 70 BUN/Creatinine Ratio 20.9 H 17.4 Glucose 102 110 H Calcium 8.3 L 8.6 Phosphorus 2.4 L 3.2 Magnesium 1.5 L 1.5 L Albumin 2.0 L 2.1 L POC Glucose Microbiology 11/24/19 16:15 Blood Culture (Wb) - Left Hand Blood Culture - Preliminary No growth in 48 hours. 11/24/19 14:00 Blood Culture (Wb) - Line Draw Blood Culture - Preliminary No growth in 48 hours. 11/24/19 13:30 Urine Catheter - Catheter Urine Culture - Final Culture exhibits no growth. Medical Necessity - Tobacco Use Smoking Status: Current every day smoker Tobacco Use: Cigarettes Assessment/Plan All Active Problems (Last Reviewed 10/19/19 @ 14:[address] Tiffany Newell, DO) Chronic diarrhea (Resolved) History of illicit drug use (Resolved) Iron deficiency anemia (Resolved) RECOMMENDATIONS: 1. Encourage BiPAP utilization with naps and nightly. 2. Continue scheduled aerosol treatments, empiric antimicrobials and nicotine replacement. 3. Hemodynamically stable on room air. Will sign off from a critical care perspective 4. Encourage incentive spirometer use and mobilize patient as tolerated. IMPRESSIONS: 1. Acute kidney injury Improving. Likely prerenal in etiology and related to hemodynamic instability. Nephrology is currently following. Renal ultrasound was unremarkable. Will monitor urine output accordingly. No current indication for renal replacement therapy. Avoid nephrotoxic medications. Defer to nephrology 2. Undifferentiated shock Resolved. Unclear etiology. Concern for hypovolemic versus distributive etiologies. At the present time, the patient is not demonstrating any systemic signs of infection. However, given that repeat x-ray revealed some possible bibasilar changes, the patient was placed on empiric antimicrobials, should this represent an evolving pulmonary infectious process. Cosyntropin stimulation test was not consistent with adrenal insufficiency. The patient was able to be weaned off of all forms of vasopressor therapy on November 24. He remains hemodynamically stable. Patient remains hemodynamically stable on room air. Will sign off from a critical care perspective. Please call with further issues. 3. Encephalopathy Resolved. Likely metabolic in nature. In addition, arterial blood gas did reveal some CO2 retention. He has responded appropriately to the use of noninvasive positive pressure ventilatory support. There is no concern for recurrent seizure activity. No need for antiepileptic medications. Continue to withhold sedating medications. Recommend continued BiPAP support with naps and nightly. 4. Hypomagnesemia/hypokalemia Additional electrolyte repletion as indicated 5. Anemia/history of left Pancoast tumor/non-small cell lung cancer/tobacco dependency/GERD/diabetes mellitus Complicates care, management, recovery and prognosis. The patient does continue to smoke cigarettes. Nicotine replacement therapy can be offered while admitted to the hospital. Physical therapy to work with the patient. Inpatient E&M: [id number] [facility] Hosp L2
[2019-11-27] MEDS: Pantoprazole Sodium 40 MG Tablet PO (10:45)
[2019-11-27] MEDS: Calcium Carbonate 500 MG Tablet PO ×2 (10:45→16:05)
[2019-11-27] MEDS: Magnesium Oxide 400 MG Tablet PO ×2 (10:45→16:05)
[2019-11-27] MEDS: Enoxaparin 40 MG/0.4 ML Syringe SC (10:45)
--- NOTE | 2019-11-27 12:01 | PCM.PN.HOSP ---
Subjective: Feels better he says it is doing better. No significant issues overnight, encephalopathy appears to have resolved Vitals/I&O's: Vital Signs Temp Pulse Resp BP Pulse Ox 99.9 F H 89 18 109/69 97 11/27/19 08:40 11/27/19 08:40 11/27/19 08:40 11/27/19 08:40 11/27/19 08:40 Oxygen Flow Rate (L/min) 1 Oxygen Delivery Method Room Air Weight: 168 lb 10.458 oz Body Mass Index (BMI) 25.7 Intake and Output for Last 24 Hours 11/25/19 11/26/19 11/27/19 23:59 23:59 23:59 Intake Total 3500.99 / 3500.99 1831.87 / 1831.87 340 / 340 Output Total 5400 / 5400 2049 / 2049 Balance -1899.01 / -1899.01 -218.13 / -218.13 340 / 340 General: Alert, Oriented x3, Cooperative, No apparent distress HEENT: Atraumatic, PERRLA, EOMI, Normocephalic, - - Conjunctivitis Oral: Moist Mucosa Neck: Supple, No JVD Lungs: Clear to auscultation, Normal air movement, No rhonchi, No wheeze, No rales, Diminished Cardiovascular: Regular rate, Regular Rhythm, Normal S1, Normal S2, No murmurs Abdomen: Soft, Non Tender, Non-Distended, No Hepato-splenomegaly, Passing Flatus Extremities: No edema, Capillary Refill Less than 3 Seconds Skin: No rashes, No breakdown Neurological: Neuro grossly intact, Sensory exam intact to light touch and pain Psych/Mental Status: Normal Affect, Appropriate Microbiology Past 72 Hours 11/24/19 16:15 Blood Culture (Wb) - Left Hand Blood Culture - Preliminary No growth in 48 hours. 11/24/19 14:00 Blood Culture (Wb) - Line Draw Blood Culture - Preliminary No growth in 48 hours. 11/24/19 13:30 Urine Catheter - Catheter Urine Culture - Final Culture exhibits no growth. Laboratory Results 11/27/19 01:46: Sodium 141, Potassium 3.4 L, Chloride 109 H, Carbon Dioxide 27.0, BUN 20 H, Creatinine 1.15, Estim Creat Clear Calc 67.06, Est GFR (MDRD) Af Amer 84, Est GFR (MDRD) Non-Af 70, BUN/Creatinine Ratio 17.4, Glucose 110 H, Calcium 8.6, Phosphorus 3.2, Magnesium 1.5 L, Albumin 2.1 L 11/27/19 01:46: WBC 8.6, RBC 2.79 L, Hgb 9.3 L, Hct 27.7 L, MCV 99.3 H, MCH 33.3 H, MCHC 33.6, RDW Std Deviation 65.3 H, RDW Coeff of Sophie 17.9 H, Plt Count 157, MPV 10.5, Immature Gran % (Auto) 0.600, Neut % (Auto) 91.8 H, Lymph % (Auto) 5.6 L, Starr % (Auto) 1.3, Eos % (Auto) 0.6, Baso % (Auto) 0.1, Absolute Neuts (auto) 7.9 H, Absolute Lymphs (auto) 0.48 L, Nucleated RBC % 0, Differential Comment SCANNED Current Medications Acetaminophen (Tylenol) 650 mg PO Q6H PRN PRN PRN Reason: Pain Score 1-10/Temp > 100.7 F Last Admin: 11/27/19 06:33 Dose: 650 mg Documented by: Albuterol Sulfate (Ventolin Aerosols) 2.5 mg INHALATION Q2H PRN PRN PRN Reason: SOB/Wheezing Albuterol/Ipratropium (Duoneb) 3 ml INHALATION Q6HWA.RT [facility] Last Admin: 11/27/19 07:10 Dose: Not Given Documented by: Calcium Carbonate (Tums) 500 mg PO BIDCM [facility] Last Admin: 11/27/19 10:45 Dose: 500 mg Documented by: Ciprofloxacin HCl (Ciloxan) 2 drop EACH EYE Q4 [facility] Last Admin: 11/27/19 10:45 Dose: 2 drop Documented by: Enoxaparin Sodium (Lovenox) 40 mg SC DAILY [facility] Last Admin: 11/27/19 10:45 Dose: 40 mg Documented by: Ergocalciferol (Vitamin D) 50,000 unit PO WE [facility] Sodium Chloride () 250 mls @ 15 mls/hr IV .[id number] PRN PRN Reason: Saline Flush Sodium Chloride () 250 mls @ 15 mls/hr IV .[id number] PRN PRN Reason: Additional IVPB Infusion Piperacillin Sod/Tazobactam (Sod 3.375 gm/ Sodium Chloride) 50 mls @ 12.5 mls/hr IV Q8 [facility] Last Infusion: 11/27/19 10:35 Dose: Infused Documented by: Levothyroxine Sodium (Synthroid) 75 mcg PO DAILY@0600 [facility] Last Admin: 11/27/19 06:29 Dose: 75 mcg Documented by: Magnesium Oxide (Mag-Ox 400) 400 mg PO BIDCM [facility] Last Admin: 11/27/19 10:45 Dose: 400 mg Documented by: Nicotine (Nicoderm Cq (Pbkc)) 14 mg TRANSDERM. DAILY [facility] Last Admin: 11/27/19 10:46 Dose: 14 mg Documented by: Nitroglycerin (Nitrostat) 0.4 mg SUBLINGUAL Q5M PRN PRN Reason: CARDIAC/CHEST PAIN Pantoprazole Sodium (Protonix) 40 mg PO DAILY [facility] Last Admin: 11/27/19 10:45 Dose: 40 mg Documented by: Promethazine HCl (Phenergan) 6.25 mg IV Q6H PRN PRN PRN Reason: NAUSEA/VOMITING Senna/Docusate Sodium (Senokot-S, Linda-Colace) 2 tablet PO BID PRN PRN PRN Reason: Constipation Sodium Chloride () 10 - 40 ml IV UD PRN PRN Reason: SALINE FLUSH Last Admin: 11/26/19 05:30 Dose: 10 ml Documented by: STROKE Vital Signs/Narrative: Vital Signs Temp Pulse Resp BP Pulse Ox 11/27/19 08:40 99.9 F H 89 18 109/69 97 Medical Necessity - Tobacco Use Smoking Status: Current every day smoker Tobacco Use: Cigarettes Assessment/Plan All Active Problems (Last Reviewed 10/19/19 @ 14:[address] Tiffany Newell DO) Chronic diarrhea (Resolved) History of illicit drug use (Resolved) Iron deficiency anemia (Resolved) 1. Shock with hypotension history of hypertension/EVERARDO/acute hypoxic and hypercapnic respiratory failure with altered mental status and acute metabolic encephalopathy/left lung metastatic adenocarcinoma -She did have an elevated CO2 on his ABG and when he was started on BiPAP this improved as did his metabolic encephalopathy -Also his creatinine has improved significantly with IV fluids and this likely indicates that his shock is secondary to hypovolemia -Appreciate nephrology input -Continues to make good urine, does not need dialysis at the moment, appears to be prerenal -He had a cosyntropin test which did not show adrenal insufficiency and all cultures have been negative therefore it is likely not infectious, however he does continue to spike temperatures therefore we will continue with IV Zosyn -His blood pressure has been stable off the levophed 2. History of seizures and myoclonic jerking -he was seen by neurology on the and they did not feel that he needed to be continued on his antiseizure medication, they felt that the myoclonic jerking was due to acute kidney injury and metabolic derangement 3. Chronic normocytic normochromic anemia -This is stable, secondary to neoplasm and chemotherapy 4. DM 2 -He says that his blood sugar was well controlled after the diagnosis of cancer and the chemotherapy likely from weight loss. His blood sugar on admission was 71 -We will continue to monitor 5. Hypothyroidism -TSH was normal however T4 was low indicating euthyroid sick syndrome -continue with his Synthroid 6. GERD/Breen's esophagus -Stable -Continue with PPI 7. Conjunctivitis -Mostly in the left eye, continue with eyedrops DVT: Lovenox Inpatient E&M: 46552 Subs Hosp L2
[2019-11-28] VITALS (10 sets, daily range): BP systolic 139–150; BP diastolic 66–75; PULSE 77–87; RESP 16–18; TEMP 36.9–38; O2SAT 96–99
[2019-11-28] MEDS: Ciprofloxacin 0.3% 2.5ml Bottle 2 DRP EACH EYE ×6 (02:50→21:01)
[2019-11-28] MEDS: Acetaminophen 325 MG Tablet 650 MG PO ×3 (02:50→16:51)
[2019-11-28] MEDS: Levothyroxine 75 MCG Tablet PO (05:26)
[2019-11-28 05:51] LABS: Absolute Lymphocyte Count 0.47 X10^3/uL (0.83-4.51); Absolute Neutrophil Count 7.1 X10^3/uL (2.0-7.7); Basophil# 0.02 X10^3/uL; Basophil% 0.3 % (0-1); Eosinophil# 0.06 X10^3/uL; Eosinophils% 0.8 % (0-5); Hematocrit 28.3 % (40-54); Hemoglobin 9.8 g/dL (13.0-16.5); Lymphocyte # 0.47 X10^3/ul (4.0); Lymphocyte % 6.1 % (19-41); Mean Corp Hgb Conc 34.6 g/dL (32-36); Mean Corpuscular Hgb 34.1 pg (27.0-32.0); Mean Corpuscular Volume 98.6 fL (80-94); Mean Platelet Vol. 10.7 fl (6.2-12.0); Monocyte# 0.08 X10^3/uL; NRBC Flagged by Analyzer 0 % (0-5); Neutrophil # 7.06 X10^3/uL (2.7-7.7); Neutrophil % 91.2 % (47-70); POSITIVE DIFFERENTIAL YES; Platelet Count 125 K/mm3 (150-450); RBC Distribution Width CV 17.3 % (11.6-14.6); RBC Distribution Width SD 62.4 fl (35.1-43.9); Red Blood Count 2.87 M/mm3 (4.6-6.2); White Blood Count 7.7 K/mm3 (4.4-11.0)
[2019-11-28 05:54] LABS: Differential Indicated SCAN CRITERIA MET
[2019-11-28 06:08] LABS: Albumin, Serum 2.1 g/dL (3.2-5.0); BUN 12 mg/dL (7-18); BUN/Creat Ratio 12.6 RATIO (10-20); Calcium,Total 8.7 mg/dL (8.5-10.1); Chloride 105 mmol/L (98-107); Creatinine, Serum 0.95 mg/dL (0.70-1.30); EST Glomerular Filtration Rate 87 mL/min (>60); Est Glom Filt Rate - Afr Amer 105 mL/min (>60); Estimated Creatinine Clearance 81.18 ml/min; Glucose 115 mg/dL (74-106); Magnesium 1.4 mg/dL (1.6-2.6); Phosphorus 3.3 mg/dL (2.5-4.9); Potassium 3.5 mmol/L (3.5-5.1); Sodium Level 137 mmol/L (136-145)
[2019-11-28 06:29] LABS: Differential Comment SCANNED; Reactive Lymphocyte RARE
--- NOTE | 2019-11-28 06:35 | CPS ---
Pt does not want to take aerosols, he says they do not help his breathing.
--- NOTE | 2019-11-28 09:21 | CASEMGMT ---
Social Work Note SW received message from Yoselyn Henderson asking for update. SW placed a call to Yoselyn at [facility] and left message that pt was transferred to PCU over the weekend and to call Enio BLOOM with any additional questions or concerns. MARTY provided direct number for Enio Courtney. Brittni Weeks MEDICAL OFFICE SUPERVISOR, LAND USE PLANNER
[2019-11-28] MEDS: Calcium Carbonate 500 MG Tablet PO ×2 (09:38→16:51)
[2019-11-28] MEDS: Magnesium Oxide 400 MG Tablet PO ×2 (09:38→16:51)
[2019-11-28] MEDS: Enoxaparin 40 MG/0.4 ML Syringe SC (09:38)
[2019-11-28] MEDS: Pantoprazole Sodium 40 MG Tablet PO (09:39)
--- NOTE | 2019-11-28 11:14 | CASEMGMT ---
DANG VALENTIN assessment: Face to Face with patient for initial transition planning/care coordination assessment. DANG VALENTIN introduced self and role at [facility], pt voices understanding and consents to assessment at this time. Pt is sitting up in chair in no distress at this time. Pt is A/Ox4 at this time and answers all questions appropriately at this time. Care providers, pharmacy, and demographics verified at this time. Presentation: while getting chemo, labwork showed kidney failure, sent to ED Admitting dx: Hypotension, EVERARDO PCP: Isaias Specialists: komal Harper Preferred Pharmacy: [facility] Insurance: [employer]SC/CRSC Prescription Benefit: [employer]SC/CRSC Living Will/HPOA: Pt has LW/HPOA and they are on file at [facility] at this time. Pt's brother, Carmine Givens, is HPOA. LNOK: Carmine Givens, brother/HPOA; Heather Bobby, mother Living Arrangements: Pt states lives alone in apartment and states no concerns at home at this time. Pt states is independent with ADL's. Transportation: Pt states uses [facility] transportation. DME/HHC: Pt states has the following DME: rollator, grab bars, and shower chair. Pt states no further DME needed at this time. Pt states was recently in [facility] rehab and had [facility] for SN, PT but was discharged on 11/22, which was the day of his readmission. Therapy is recommending addl therapy/HHC and pt is agreeable to [facility] again at this time. Debra, [facility], states they can accept pt at this time. Order placed for SN, PT/OT at this time. COVID transfer tool faxed to [facility]. Pt is also active with [facility] for aides and meals, see previous note by MARTY. Pt states no concerns with going home at time of discharge. Pt states is disabled. Pt states smokes 1.5pk/day and drinks about 3beers daily. Pt states no further concerns/needs at this time. CM to follow for any further discharge planning/needs. Advised pt to ask for CM if any further questions/concerns/needs arise, voices understanding. Pt Goal: Home w/ HHC Plan: [facility] w/ [facility] DANG VALENTIN
--- NOTE | 2019-11-28 13:51 | PCM.PN.HOSP ---
Subjective: Doing well, no issues overnight. He continues to spike temps at night. Repeat blood cultures are pending Vitals/I&O's: Vital Signs Temp Pulse Resp BP Pulse Ox 98.4 F 77 18 148/72 H 96 11/28/19 08:48 11/28/19 11:05 11/28/19 08:48 11/28/19 08:48 11/28/19 08:48 Oxygen Flow Rate (L/min) 1 Oxygen Delivery Method Room Air Weight: 167 lb 15.876 oz Body Mass Index (BMI) 25.7 Intake and Output for Last 24 Hours 11/26/19 11/27/19 11/28/19 23:59 23:59 23:59 Intake Total 1831.87 / 1831.87 1933 641.75 / 641.75 Output Total 2049 / 2049 Balance -218.13 / -218.13 1933 641.75 / 641.75 General: Alert, Oriented x3, Cooperative, No apparent distress HEENT: Atraumatic, PERRLA, EOMI, Normocephalic, - - Conjunctivitis left Oral: Moist Mucosa Neck: Supple, No JVD Lungs: Clear to auscultation, Normal air movement, No rhonchi, No wheeze, No rales, Diminished Cardiovascular: Regular rate, Regular Rhythm, Normal S1, Normal S2, No murmurs Abdomen: Soft, Non Tender, Non-Distended, No Hepato-splenomegaly, Passing Flatus Extremities: No edema, Capillary Refill Less than 3 Seconds Skin: No rashes, No breakdown Neurological: Neuro grossly intact, Sensory exam intact to light touch and pain Psych/Mental Status: Normal Affect, Appropriate Microbiology Past 72 Hours 11/24/19 16:15 Blood Culture (Wb) - Left Hand Blood Culture - Preliminary No growth in 48 hours. 11/24/19 14:00 Blood Culture (Wb) - Line Draw Blood Culture - Preliminary No growth in 48 hours. 11/24/19 13:30 Urine Catheter - Catheter Urine Culture - Final Culture exhibits no growth. Laboratory Results 11/28/19 05:30: WBC 7.7, RBC 2.87 L, Hgb 9.8 L, Hct 28.3 L, MCV 98.6 H, MCH 34.1 H, MCHC 34.6, RDW Std Deviation 62.4 H, RDW Coeff of Sophie 17.3 H, Plt Count 125 L, MPV 10.7, Immature Gran % (Auto) 0.600, Neut % (Auto) 91.2 H, Lymph % (Auto) 6.1 L, Dodge % (Auto) 1.0, Eos % (Auto) 0.8, Baso % (Auto) 0.3, Absolute Neuts (auto) 7.1, Absolute Lymphs (auto) 0.47 L, Nucleated RBC % 0, Differential Comment SCANNED, Reactive Lymphocytes RARE 11/28/19 05:30: Sodium 137, Potassium 3.5, Chloride 105, Carbon Dioxide 25.0, BUN 12, Creatinine 0.95, Estim Creat Clear Calc 81.18, Est GFR (MDRD) Af Amer 105, Est GFR (MDRD) Non-Af 87, BUN/Creatinine Ratio 12.6, Glucose 115 H, Calcium 8.7, Phosphorus 3.3, Magnesium 1.4 L, Albumin 2.1 L Current Medications Acetaminophen (Tylenol) 650 mg PO Q6H PRN PRN PRN Reason: Pain Score 1-10/Temp > 100.7 F Last Admin: 11/28/19 09:40 Dose: 650 mg Documented by: Albuterol Sulfate (Ventolin Aerosols) 2.5 mg INHALATION Q2H PRN PRN PRN Reason: SOB/Wheezing Albuterol/Ipratropium (Duoneb) 3 ml INHALATION Q6HWA.RT [facility] Last Admin: 11/28/19 13:26 Dose: Not Given Documented by: Calcium Carbonate (Tums) 500 mg PO BIDCM [facility] Last Admin: 11/28/19 09:38 Dose: 500 mg Documented by: Ciprofloxacin HCl (Ciloxan) 2 drop EACH EYE Q4 [facility] Last Admin: 11/28/19 09:38 Dose: 2 drop Documented by: Enoxaparin Sodium (Lovenox) 40 mg SC DAILY [facility] Last Admin: 11/28/19 09:38 Dose: 40 mg Documented by: Ergocalciferol (Vitamin D) 50,000 unit PO WE [facility] Sodium Chloride () 250 mls @ 15 mls/hr IV .[id number] PRN PRN Reason: Saline Flush Last Infusion: 11/28/19 09:26 Dose: 15 mls/hr Documented by: Sodium Chloride () 250 mls @ 15 mls/hr IV .[id number] PRN PRN Reason: Additional IVPB Infusion Piperacillin Sod/Tazobactam (Sod 3.375 gm/ Sodium Chloride) 50 mls @ 12.5 mls/hr IV Q8 [facility] Last Infusion: 11/28/19 09:26 Dose: Infused Documented by: Levothyroxine Sodium (Synthroid) 75 mcg PO DAILY@0600 [facility] Last Admin: 11/28/19 05:26 Dose: 75 mcg Documented by: Magnesium Oxide (Mag-Ox 400) 400 mg PO BIDCM [facility] Last Admin: 11/28/19 09:38 Dose: 400 mg Documented by: Nicotine (Nicoderm Cq (Pbkc)) 14 mg TRANSDERM. DAILY [facility] Last Admin: 11/28/19 09:38 Dose: 14 mg Documented by: Nitroglycerin (Nitrostat) 0.4 mg SUBLINGUAL Q5M PRN PRN Reason: CARDIAC/CHEST PAIN Pantoprazole Sodium (Protonix) 40 mg PO DAILY [facility] Last Admin: 11/28/19 09:39 Dose: 40 mg Documented by: Promethazine HCl (Phenergan) 6.25 mg IV Q6H PRN PRN PRN Reason: NAUSEA/VOMITING Senna/Docusate Sodium (Senokot-S, Linda-Colace) 2 tablet PO BID PRN PRN PRN Reason: Constipation Sodium Chloride () 10 - 40 ml IV UD PRN PRN Reason: SALINE FLUSH Last Admin: 11/26/19 05:30 Dose: 10 ml Documented by: STROKE Vital Signs/Narrative: Vital Signs Pulse 11/28/19 11:05 77 Medical Necessity - Tobacco Use Smoking Status: Current every day smoker Tobacco Use: Cigarettes Assessment/Plan All Active Problems (Last Reviewed 10/19/19 @ 14:[address] Tiffany Newell, ) Chronic diarrhea (Resolved) History of illicit drug use (Resolved) Iron deficiency anemia (Resolved) 1. Shock with hypotension history of hypertension/EVERARDO/acute hypoxic and hypercapnic respiratory failure with altered mental status and acute metabolic encephalopathy/left lung metastatic adenocarcinoma -He did have an elevated CO2 on his ABG and when he was started on BiPAP this improved as did his metabolic encephalopathy -Also his creatinine has improved significantly with IV fluids and this likely indicates that his shock is secondary to hypovolemia -Appreciate nephrology input -Continues to make good urine, does not need dialysis at the moment, appears to be prerenal -He had a cosyntropin test which did not show adrenal insufficiency -All cultures have been negative therefore it is likely not infectious, however he does continue to spike temperatures therefore we will continue with IV Zosyn while repeat blood cultures are pending. Probable pulmonary source, so may dc on augmentin or levaquin if blood cxs remain negative -His blood pressure has been stable off the levophed 2. History of seizures and myoclonic jerking -he was seen by neurology on the and they did not feel that he needed to be continued on his antiseizure medication, they felt that the myoclonic jerking was due to acute kidney injury and metabolic derangement 3. Chronic normocytic normochromic anemia -This is stable, secondary to neoplasm and chemotherapy 4. DM 2 -He says that his blood sugar was well controlled after the diagnosis of cancer and the chemotherapy likely from weight loss. His blood sugar on admission was 71 -We will continue to monitor 5. Hypothyroidism -TSH was normal however T4 was low indicating euthyroid sick syndrome -continue with his Synthroid 6. GERD/Breen's esophagus -Stable -Continue with PPI 7. Conjunctivitis -Mostly in the left eye, continue with eyedrops DVT: Lovenox Inpatient E&M: 23520 Subs Hosp L2
[2019-11-29] VITALS (7 sets, daily range): BP systolic 141–149; BP diastolic 69–78; PULSE 73–80; RESP 18; TEMP 36.9–37.4; O2SAT 94–96
[2019-11-29] MEDS: Ciprofloxacin 0.3% 2.5ml Bottle 2 DRP EACH EYE ×5 (01:51→17:46)
[2019-11-29] MEDS: Levothyroxine 75 MCG Tablet PO (05:09)
[2019-11-29 05:36] LABS: Bedside Glucose 96 mg/dL (70-110)
[2019-11-29 06:21] LABS: Magnesium 1.2 mg/dL (1.6-2.6)
[2019-11-29] MEDS: Calcium Carbonate 500 MG Tablet PO ×2 (08:27→17:46)
[2019-11-29] MEDS: Pantoprazole Sodium 40 MG Tablet PO (08:27)
[2019-11-29] MEDS: Enoxaparin 40 MG/0.4 ML Syringe SC (08:27)
[2019-11-29] MEDS: Magnesium Oxide 400 MG Tablet PO ×2 (08:27→17:46)
--- NOTE | 2019-11-29 11:19 | PCM.DC ---
You will use the following diet at home:: Cardiac Your food should be the consistency of: Regular Your liquids should be the consistency of: Regular/Thin Discharge Activity: Return to Normal Activity Call your doctor if you observe: Fever of 101 or Higher, Shortness of breath, Dizziness, Fainting spells, Swelling in the ankles, Chest pain, Increased palpitations (irregular heartbeat) Additional Instructions: Repeat BMP by your PCP to eval your kidney function. Allergies/Adverse Reactions: Allergies No Known Allergies Allergy (Verified 11/23/19 15:42) Medications to take at Discharge Citalopram [Celexa] 40 mg PO DAILY 12/15/16 Folic Acid 1 mg PO DAILY 08/25/19 Levothyroxine [Synthroid] 75 mcg PO DAILY 10/09/19 Omeprazole 40 mg PO DAILY 10/09/19 Atorvastatin Calcium [Lipitor] 40 mg PO QHS #30 tab 10/30/19 Calcium Carbonate [Tums] 500 mg PO BIDCM #60 tab 10/30/19 Lisinopril [Zestril] 5 mg PO DAILY #30 tab 10/30/19 Magnesium Chloride [Slow-Mag] 71.5 mg PO Q8H #90 tablet.dr 10/30/19 Pregabalin [Lyrica] 150 mg PO BID #60 cap 10/30/19 Quetiapine Fumarate [Seroquel] 300 mg PO QHS #30 tab 10/30/19 Tamsulosin HCl [Flomax] 0.4 mg PO DAILY@1730 #30 cap 10/30/19 Ergocalciferol [Vitamin D] 50,000 unit PO WE 11/23/19 Meloxicam 15 mg PO BID 11/23/19 Ciprofloxacin 0.3% [Ciloxan] 2 drp EACH EYE Q4 #1 bottle 11/29/19 The following prescriptions were given: Ciprofloxacin 0.3% [Ciloxan] 2 drp EACH EYE Q4 #1 bottle Transmission Status: Pending to [facility] Primary Care Physician: Zurdo Esparza MD [Primary Care Provider] - Please follow up with your Primary Care Physician in: 3-5 days Test Results: Test results from this visit will be discussed in further detail at your follow-up appointment, if applicable.
[2019-11-29] MEDS: Magnesium Sulfate 4gm/100mL 4 GM/100 ML IV.SOLN. IV (11:25)
--- NOTE | 2019-11-29 11:43 | CASEMGMT ---
Social Work Pt ready for discharge today. Phone call placed to Yoselyn Henderson at [facility] and notified of d/c today. Discharge papers will be faxed when available. MERLE Ortega
--- NOTE | 2019-11-29 12:05 | PHA.DC.MC ---
Pharmacy Service has attempted to perform discharge medication reconciliation and counseling for this patient. The patient's discharge medication list was reviewed for discrepancies and discrepancies were resolved. Home Medications Citalopram [Celexa] 40 mg PO DAILY 12/15/16 Folic Acid 1 mg PO DAILY 08/25/19 Levothyroxine [Synthroid] 75 mcg PO DAILY 10/09/19 Omeprazole 40 mg PO DAILY 10/09/19 Atorvastatin Calcium [Lipitor] 40 mg PO QHS #30 tab 10/30/19 Calcium Carbonate [Tums] 500 mg PO BIDCM #60 tab 10/30/19 Lisinopril [Zestril] 5 mg PO DAILY #30 tab 10/30/19 Magnesium Chloride [Slow-Mag] 71.5 mg PO Q8H #90 tablet.dr 10/30/19 Pregabalin [Lyrica] 150 mg PO BID #60 cap 10/30/19 Quetiapine Fumarate [Seroquel] 300 mg PO QHS #30 tab 10/30/19 Tamsulosin HCl [Flomax] 0.4 mg PO DAILY@1730 #30 cap 10/30/19 Ergocalciferol [Vitamin D] 50,000 unit PO WE 11/23/19 Meloxicam 15 mg PO BID 11/23/19 Ciprofloxacin 0.3% [Ciloxan] 2 drp EACH EYE Q4 #1 bottle 11/29/19 Upon entering room, it was noted the patient was in isolation per sign and garb on the patient door. In order to preserve PPE, tele-counseling was attempted. Tried calling pt x2 with no response. Will attempt to call the patient again to discuss medication. The pharmacy attempted to certified personal finance counselor the patient on the following discharge medications and changes in medications for homegoing were reviewed. 1. Ciprofloxacin Eye drops: 2gtt OU Q4h x5 days. The Reason for Use, instructions for use, and potential side effects were reviewed for all new medications.
--- NOTE | 2019-11-29 13:33 | CASEMGMT ---
Lilia at [facility] aware that pt to be discharged today and she states that they should be able to do start of care tomorrow. Esau LEONG CM
--- NOTE | 2019-11-29 14:19 | DS.PCM_ITS ---
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 Steven Shrestha Vitamin D deficiency (Chronic) Adenocarcinoma of left lung (Chronic) with a metastatic lesion in the RUL Alcohol abuse (Chronic) Barretts esophagus (Chronic) Chronic hepatitis C (Chronic) Cannabis use, uncomplicated (Chronic) admits to 1 joint a day Hospital Course and Treatment Imaging Results: CXR: IMPRESSION: Left apical pleural thickening. Left apical airspace disease with air bronchograms noted. Degenerative changes of the thoracic spine. Findings appear similar allowing for differences in radiographic technique to the previous study of 10/21/2019. Renal US: IMPRESSION: There is a 1.5 cm left renal cyst. There is no evidence of hydronephrosis. CT Brain: IMPRESSION: Chronic involutional changes of the brain. There is NO hemorrhage, edema, mass, mass effect or midline shift. Echo: Interpretation Summary Normal LV size. Left ventricular systolic function is normal. The estimated ejection fraction is 65 %. Stage 2 diastolic dysfunction. Mild focal aortic valve calcification. Mild (1+) tricuspid valve insufficiency. Consults: Nephrology ICU Operations: None Procedures: 2-D Echocardiogram, Electroencephalogram Summary of Care Provided: Per HPI: The patient is a 54 year old M with history of adenocarcinoma of left lung with a metastatic lesion in right upper lobe, being managed by Dr. Harper was sent from chemotherapy center after he was found acute kidney injury. Patient has noticed low blood pressure for 3 to 4 weeks with blood pressure, systolic running in 80s which used to be high, hypertension prior to chemo. Patient denies any change in the urine output. Patient gets infrequent loose bowel movement about 3-4 times but not large volume. Denies vomiting. Denies fever, cough or recent exposure to suspected or confirmed case of COVID-19. His urine color he said clear. Denies lower urinary tract symptoms including burning micturition or increased frequency urgency. In ED, BUN/creatinine 26/4.68, sodium 131. H&H 10.9/34. Platelet count 190,000. ED vitals shows BP 80/52, heart rate 83/min, no hypoxia or tachypnea. Patient had 500 normal saline bolus in ER. I ordered 1 L normal saline bolus and then 150 mill per hour. No chest x-ray or EKG needed. Last chest x-ray on 10/14/2019 shows no acute cardiopulmonary abnormality and grossly unchanged left upper lobe mass. Hospital Course: 1. Hypovolemic shock/EVERARDO/acute hypoxic and hypercapnic respiratory failure with altered mental status and acute metabolic encephalopathy/left lung metastatic [id number] male with a history of adenocarcinoma of the left lung with metastatic lesion in the right upper lobe who is being managed by Dr. Harper was sent from his office secondary to an EVERARDO. He had a prolonged hospitalization with a brief stay in the ICU secondary to shock which is felt to be due to hypovolemia. He also had altered mental status and metabolic encephalopathy, an EEG was performed which was negative for any seizure activity however this was obtained because of jerking like movements and what was thought to possibly be a seizure. Neurology felt that this was due to his metabolic derangement and therefore did not feel like he needed further antiepileptic therapy. All of his issues have resolved since receiving IV fluids and he can resume his home blood pressure medications including lisinopril. I did discuss with him the need to stay hydrated and that if he does become dehydrated that he should stop his lisinopril as well as his meloxicam as these both affect his kidneys. He will go home with home health care so they will be able to assist in monitoring his condition. Also, there was some thought as to an infectious etiology for his shock and there is some possibility of a pulmonary source and so he was placed on Zosyn. He did have nocturnal fevers and he had multiple sets of blood cultures drawn all of which came back negative he has received about 5 days worth of Zosyn, so I did not discharge him on any further antibiotics. I did discuss the plan of discharge with him and he expressed understanding of the risks and benefits of going home today. 2. Conjunctivitis-he did have left eye conjunctivitis and was started on Cipro drops which she is to continue for 5 more days. 3. Hypomagnesemia-his magnesium levels have been low since admission, when he presented he had a magnesium of 0.4. On the day of discharge his magnesium is 1.2 and he is receiving 4 g prior to discharge. He should repeat this level as an outpatient as well as a BMP and follow-up with nephrology if necessary. He was discharged on his home oral magnesium supplement he should see his primary care doctor in 3 to 5 days as well. 4. Hypothyroidism-TSH was normal during his hospitalization however his T4 was low indicating euthyroid sick syndrome. Will recommend continuing his Synthroid and following up with a repeat TSH and T4 in a few weeks once he has recovered to make sure that these have returned to normal otherwise he may need to have an increase in his Synthroid as an outpatient. 5. His other medical diagnoses were evaluated and his home medications were continued where appropriate - Physical Exam Vitals/I&O's: Vital Signs Temp Pulse Resp BP Pulse Ox 98.4 F 80 18 141/72 H 95 11/29/19 14:15 11/29/19 14:15 11/29/19 14:15 11/29/19 14:15 11/29/19 14:15 Oxygen Flow Rate (L/min) 1 Oxygen Delivery Method Room Air Weight: 162 lb 3.2 oz Body Mass Index (BMI) 25.7 Intake and Output for Last 24 Hours 11/27/19 11/28/19 11/29/19 23:59 23:59 23:59 Intake Total 1933 932.04 / 932.04 532.71 / 532.71 Output Total 400 / 400 Balance 1933 932.04 / 932.04 132.71 / 132.71 General: Alert, Oriented x3, Cooperative, No apparent distress HEENT: Atraumatic, PERRLA, EOMI, Normocephalic, - - Conjunctivitis left Oral: Moist Mucosa Neck: Supple, No JVD Lungs: Clear to auscultation, Normal air movement, No rhonchi, No wheeze, No rales, Diminished Cardiovascular: Regular rate, Regular Rhythm, Normal S1, Normal S2, No murmurs Abdomen: Soft, Non Tender, Non-Distended, No Hepato-splenomegaly, Passing Flatus Extremities: No edema, Capillary Refill Less than 3 Seconds Skin: No rashes, No breakdown Neurological: Neuro grossly intact, Sensory exam intact to light touch and pain Psych/Mental Status: Normal Affect, Appropriate Microbiology Past 72 Hours 11/27/19 01:46 Blood Culture (Wb) - Right Hand Blood Culture - Preliminary No growth in 48 hours. 11/27/19 01:46 Blood Culture (Wb) - Anticubital Right Blood Culture - Preliminary No growth in 48 hours. 11/24/19 16:15 Blood Culture (Wb) - Left Hand Blood Culture - Preliminary No growth in 48 hours. 11/24/19 14:00 Blood Culture (Wb) - Line Draw Blood Culture - Preliminary No growth in 48 hours. Laboratory Results 11/29/19 05:30: POC Glucose 96 11/29/19 05:52: Magnesium 1.2 L Current Medications Acetaminophen (Tylenol) 650 mg PO Q6H PRN PRN PRN Reason: Pain Score 1-10/Temp > 100.7 F Last Admin: 11/28/19 16:51 Dose: 650 mg Documented by: Albuterol Sulfate (Ventolin Aerosols) 2.5 mg INHALATION Q2H PRN PRN PRN Reason: SOB/Wheezing Calcium Carbonate (Tums) 500 mg PO BIDCM [facility] Last Admin: 11/29/19 08:27 Dose: 500 mg Documented by: Ciprofloxacin HCl (Ciloxan) 2 drop EACH EYE Q4 [facility] Last Admin: 11/29/19 14:05 Dose: 2 drop Documented by: Enoxaparin Sodium (Lovenox) 40 mg SC DAILY [facility] Last Admin: 11/29/19 08:27 Dose: 40 mg Documented by: Ergocalciferol (Vitamin D) 50,000 unit PO WE [facility] Last Admin: 11/29/19 08:27 Dose: 50,000 unit Documented by: Sodium Chloride () 250 mls @ 15 mls/hr IV .[id number] PRN PRN Reason: Saline Flush Last Infusion: 11/28/19 14:58 Dose: 0 mls/hr Documented by: Sodium Chloride () 250 mls @ 15 mls/hr IV .[id number] PRN PRN Reason: Additional IVPB Infusion Piperacillin Sod/Tazobactam (Sod 3.375 gm/ Sodium Chloride) 50 mls @ 12.5 mls/hr IV Q8 [facility] Last Admin: 11/29/19 14:05 Dose: 12.5 mls/hr Documented by: Magnesium Sulfate () 4 gm in 100 mls @ 25 mls/hr IV X1 ONE Stop: 11/29/19 15:29 Last Admin: 11/29/19 11:25 Dose: 25 mls/hr Documented by: Levothyroxine Sodium (Synthroid) 75 mcg PO DAILY@0600 [facility] Last Admin: 11/29/19 05:09 Dose: 75 mcg Documented by: Magnesium Oxide (Mag-Ox 400) 400 mg PO BIDCM [facility] Last Admin: 11/29/19 08:27 Dose: 400 mg Documented by: Nicotine (Nicoderm Cq (Pbkc)) 14 mg TRANSDERM. DAILY [facility] Last Admin: 11/29/19 08:26 Dose: 14 mg Documented by: Nitroglycerin (Nitrostat) 0.4 mg SUBLINGUAL Q5M PRN PRN Reason: CARDIAC/CHEST PAIN Pantoprazole Sodium (Protonix) 40 mg PO DAILY [facility] Last Admin: 11/29/19 08:27 Dose: 40 mg Documented by: Promethazine HCl (Phenergan) 6.25 mg IV Q6H PRN PRN PRN Reason: NAUSEA/VOMITING Senna/Docusate Sodium (Senokot-S, Linda-Colace) 2 tablet PO BID PRN PRN PRN Reason: Constipation Sodium Chloride () 10 - 40 ml IV UD PRN PRN Reason: SALINE FLUSH Last Admin: 11/26/19 05:30 Dose: 10 ml Documented by: Discharge Activity: Return to Normal Activity Call your doctor if you observe: Fever of 101 or Higher, Shortness of breath, Dizziness, Fainting spells, Swelling in the ankles, Chest pain, Increased palpitations (irregular heartbeat) Home Medications: Medications to take at Discharge Citalopram [Celexa] 40 mg PO DAILY 12/15/16 Folic Acid 1 mg PO DAILY 08/25/19 Levothyroxine [Synthroid] 75 mcg PO DAILY 10/09/19 Omeprazole 40 mg PO DAILY 10/09/19 Atorvastatin Calcium [Lipitor] 40 mg PO QHS #30 tab 10/30/19 Calcium Carbonate [Tums] 500 mg PO BIDCM #60 tab 04/27/20 Lisinopril [Zestril] 5 mg PO DAILY #30 tab 10/30/19 Magnesium Chloride [Slow-Mag] 71.5 mg PO Q8H #90 tablet.dr 10/30/19 Pregabalin [Lyrica] 150 mg PO BID #60 cap 10/30/19 Quetiapine Fumarate [Seroquel] 300 mg PO QHS #30 tab 10/30/19 Tamsulosin HCl [Flomax] 0.4 mg PO DAILY@1730 #30 cap 10/30/19 Ergocalciferol [Vitamin D] 50,000 unit PO WE 11/23/19 Meloxicam 15 mg PO BID 11/23/19 Ciprofloxacin 0.3% [Ciloxan] 2 drp EACH EYE Q4 #1 bottle 11/29/19 Following Prescrptions Were Given to Patient: Ciprofloxacin 0.3% [Ciloxan] 2 drp EACH EYE Q4 #1 bottle Transmission Status: Received by [facility] Primary Care Physician: Zurdo Esparza MD [Primary Care Provider] - Please follow up with your Primary Care Physician in: 3-5 days Please Follow Up With: Zurdo Esparza MD Disposition: Home with Home Health Minutes spent on discharge:: 35 Patient Condition:: Stable Medical Necessity - Tobacco Use Smoking Status: Current every day smoker Tobacco Use: Cigarettes Meaningful Use Info Meaningful Use Diagnoses (Choose all that apply): None applicable Inpatient E&M: 25885 Disch Hosp
--- NOTE | 2019-11-29 14:49 | CASEMGMT ---
Social Work Pt ready for d/c today. Phone call to [facility] and transportation arranged for pickup between 2:45 and 5:45 and cement truck driver will call when they are 15 minutes away. Nursing and pt made aware and understanding. D/C instructions faxed to Palliative medicine and to Johny CM at [facility]. MERLE Ortega
--- NOTE | 2019-11-30 15:23 | CASEMGMT ---
DANG VALENTIN Discharge F/U Phone Call LACE: 14 Strata: 4 Discharge date: 11/29/2019 Call date: 11/30/2019 Call time: 1524 Admission dx: EVERARDO w/ hypotension Pt states is 'getting by' since discharge. Pt states no questions regarding discharge instructions or medications at this time. [facility] had stated that they tried to see pt this am but pt did not answer door or phone when they went out. Pt states he is unsure why he didn't hear door or phone. This DANG VALENTIN advised pt that will let [facility] know that pt did answer at this time. Pt states plans to keep f/u appts. Pt states no further suggestions for [facility] at this time. Pt voices no further questions/concerns/needs at this time. SStaten DANG VALENTIN
== END 2019-11-29 18:14 | disposition home health service (06) | DRG 682 ==
LOC: ED 16:38 → PCU 17:55 → ICU 11-24 08:38 → PCU 11-26 13:31
PROVIDERS: Hospitalist; Internal Medicine; Internal Medicine Critical Care Medicine; Internal Medicine Nephrology; Admitting Provider Internal Medicine; Emergency Provider Emergency Medicine; PCP Internal Medicine; Visit Provider Family Medicine
DX: N17.0 Acute kidney failure with tubular necrosis (principal); R57.1 Hypovolemic shock; J96.01 Acute respiratory failure with hypoxia; J96.02 Acute respiratory failure with hypercapnia; G92 Toxic encephalopathy; C34.92 Malignant neoplasm of unspecified part of left bronchus or lung; C78.01 Secondary malignant neoplasm of right lung; F32.3 Major depressive disorder, single episode, severe with psychotic features; E87.1 Hypo-osmolality and hyponatremia; K21.9 Gastro-esophageal reflux disease without esophagitis; I10 Essential (primary) hypertension; E11.9 Type 2 diabetes mellitus without complications; E03.9 Hypothyroidism, unspecified; H10.9 Unspecified conjunctivitis; B18.2 Chronic viral hepatitis C; G62.9 Polyneuropathy, unspecified; K22.70 Barrett's esophagus without dysplasia; E55.9 Vitamin D deficiency, unspecified; E07.81 Sick-euthyroid syndrome; F17.210 Nicotine dependence, cigarettes, uncomplicated; D64.81 Anemia due to antineoplastic chemotherapy; D63.0 Anemia in neoplastic disease; T45.1X5A Adverse effect of antineoplastic and immunosuppressive drugs, initial encounter; D69.6 Thrombocytopenia, unspecified; E87.6 Hypokalemia
CPT/HCPCS: 36415; 36600; 70450; 71045; 76770; 80048; 80053; 80069; 80076; 81001; 82140; 82533; 82570; 82803; 82962; 83036; 83605; 83735; 83880; 84100; 84300; 84439; 84443; 85025; 85610; 87040; 87086; 93005; 93306; 94002; 94003; 94640; 95819; 97110; 97161; 97168; 97530; 97535; 99251; 99285; J7030; J7050; Q9957; A4216; C1751; G0463; J0834; J3490

== ENCOUNTER 2019-12-05 13:24 | Outpatient (RCR) | payer MEDICARE, MEDICAID, SELFPAY ==
[2019-11-23 18:23] VITALS: BMI 25.7
[2019-12-06 14:42] LABS: Anion Gap 10 (5-15); BUN 24 mg/dL (7-18); BUN/Creat Ratio 25.3 RATIO (10-20); Calcium,Total 9.5 mg/dL (8.5-10.1); Chloride 97 mmol/L (98-107); Creatinine, Serum 0.95 mg/dL (0.70-1.30); EST Glomerular Filtration Rate 87 mL/min (>60); Est Glom Filt Rate - Afr Amer 105 mL/min (>60); Glucose 115 mg/dL (74-106); Potassium 3.8 mmol/L (3.5-5.1); Sodium Level 135 mmol/L (136-145)
== END 2019-12-05 18:00 | disposition home or self-care (01) ==
LOC: HHLAB 13:24
PROVIDERS: PCP Internal Medicine; Referring Provider Internal Medicine; Visit Provider Internal Medicine
DX: N17.9 Acute kidney failure, unspecified (principal)
CPT/HCPCS: 80048

== ENCOUNTER 2020-01-11 11:27 | Inpatient (IN) | payer MEDICARE, MEDICAID, SELFPAY ==
[2019-11-23 18:23] VITALS: BMI 25.7
[2020-01-11] VITALS (35 sets, daily range): BP systolic 126–172; BP diastolic 64–113; PULSE 82–115; RESP 13–26; TEMP 35.9–36.9; O2SAT 94–100; BMI 22.1; BMI 21.4; BMI 21.5
--- NOTE | 2020-01-11 11:29 | CT_ITS ---
STUDY: CT BRAIN WITHOUT CONTRAST REASON FOR EXAM: Male, 54 years old. Stroke RADIATION DOSAGE (If Supplied By Facility): CTDIvol = ( 44.99 ) mGy, DLP = ( 796.11 ) mGycm TECHNIQUE: Transaxial CT imaging of the brain was performed without administration of intravenous contrast material. Individualized dose optimization techniques were used for this CT. COMPARISON: Comparison is made with prior study dated November 24, 2019. FINDINGS: Normal soft tissue structures. Normal calvarium. There is mild cerebral atrophy with widening of the extra-axial spaces and ventricular dilatation. There are areas of decreased attenuation within the white matter tracts of the supratentorial brain, consistent with microvascular disease changes. Normal basal ganglia and thalami. Normal brainstem. Normal cerebellum. There is no intracranial hemorrhage. There are no findings of an acute ischemic infarction. Normal visualized paranasal sinuses. CT/Brain/Head without Contrast IMPRESSION: Chronic involutional changes of the brain. N.B. : The above information has been verbally conveyed by Baljinder Olivo to Tez Iraheta on 01/11/2020 11:43:32 (ET). Electronically Signed: Baljinder Olivo, at 11:44 EDT , Service support ,
--- NOTE | 2020-01-11 11:31 | EKG12_ITS ---
Test Reason : DYSRHYTHMIA Blood Pressure : / mmHG Vent. Rate : 106 BPM Atrial Rate : 106 BPM P-R Int : 144 ms QRS Dur : 066 ms QT Int : 372 ms P-R-T Axes : 032 088 082 degrees QTc Int : 494 ms Sinus tachycardia Septal infarct , age undetermined Inferior injury pattern Consider right ventricular involvement in acute inferior infarct Abnormal ECG Confirmed by SHANIA BINGHAM, SUKUMAR ([id number]), map editor REED FLORES ([id number]) on 01/15/2020 8:09:17 AM Referred By: MR Confirmed By:SUKUMAR JAUREGUI MD
--- NOTE | 2020-01-11 11:31 | CT_ITS ---
We are attempting to reach an attending provider to discuss findings. An addendum with communication details will be sent when the communication is complete. STUDY: CTA HEAD AND NECK WITH CONTRAST REASON FOR EXAM: Male, 54 years old. STROKE RADIATION DOSAGE (If Supplied By Facility): CTDIvol = ( 17.71 ) mGy, DLP = ( 770.22 ) mGycm TECHNIQUE: CT angiography was performed with a multi-detector CT scanner. Data acquisition was obtained from the skull base through the vertex following intravenous administration of IV 100mL Isovue-370. MIP images were reconstructed from the axial data set. Post-processing of the angiographic images was performed, with multiplanar reformation and 3D reconstruction. Individualized dose optimization techniques were used for this CT. COMPARISON: No relevant priors. FINDINGS: Normal bilateral petrous carotid arteries. There is calcified plaque formation of the right cavernous carotid artery, without a cross-sectional luminal stenosis. There is calcified plaque formation of the left cavernous carotid artery, without a cross-sectional luminal stenosis. Normal right A1 segments of the anterior cerebral artery. Normal left A1 segments of the anterior cerebral artery. Normal intact anterior communicating artery (ACOM). Normal bilateral A2 segments of the anterior cerebral arteries. Normal right M1 and M2 segments of the middle cerebral arteries, with a normal M1 bifurcation. Normal left M1 and M2 segments of the middle cerebral arteries, with a normal M1 bifurcation. Normal right posterior communicating artery (PCOM). Normal left posterior communicating artery (PCOM). Normal bilateral vertebral arteries. Normal basilar artery with a normal basilar bifurcation. The visualized bilateral superior cerebellar (SCA) arteries are normal. Normal bilateral P1, P2 and visualized P3 segments of the posterior cerebral arteries. There is no demonstrated aneurysm of the bill moore's slough of [place]. There is no demonstrated abnormality of the visualized brain. AORTIC ARCH: There is atherosclerotic calcific plaque formation of the aortic arch and great vessels arising from the aortic arch, without a hemodynamically significant stenosis. There is a normal origin of the brachiocephalic, left common carotid, and left subclavian arteries. Atherosclerotic plaques at the origin of the left subclavian artery as well as the left common carotid artery and brachiocephalic artery. RIGHT CAROTID ARTERIES: Normal right common carotid artery (CCA). Normal right common carotid bulb. There is extensive atherosclerotic plaque formation of the origin of the right internal carotid artery with an estimated stenosis of greater than 70%. Normal visualized cervical portion of the right internal carotid artery. Normal origin of the right external carotid artery (ECA). LEFT CAROTID ARTERIES: Normal left common carotid artery (CCA). Normal left common carotid bulb. There is extensive atherosclerotic plaque formation of the origin of the left internal carotid artery with an estimated stenosis of greater than 70%. Normal visualized cervical portion of the left internal carotid artery. Normal origin of the left external carotid artery (ECA). VERTEBRAL ARTERIES: Normal bilateral vertebral arteries. CT/CTA Head AND Neck W/ Contrast IMPRESSION: Greater than 70% stenosis of both internal carotid arteries at their origins due to calcific plaque. Electronically Signed: Baljinder Olivo, at 11:54 EDT , Service support ,
[2020-01-11 11:45] LABS: Absolute Lymphocyte Count 0.62 X10^3/uL (0.83-4.51); Absolute Neutrophil Count 8.2 X10^3/uL (2.0-7.7); Basophil# 0.02 X10^3/uL; Basophil% 0.2 % (0-1); Eosinophil# 0.07 X10^3/uL; Eosinophils% 0.7 % (0-5); Hematocrit 37.7 % (40-54); Hemoglobin 12.1 g/dL (13.0-16.5); Lymphocyte # 0.62 X10^3/ul (4.0); Lymphocyte % 6.4 % (19-41); Mean Corp Hgb Conc 32.1 g/dL (32-36); Mean Corpuscular Hgb 34.3 pg (27.0-32.0); Mean Corpuscular Volume 106.8 fL (80-94); Mean Platelet Vol. 10.6 fl (6.2-12.0); Monocyte# 0.74 X10^3/uL; Monocyte% 7.6 % (0-10); NRBC Flagged by Analyzer 0 % (0-5); Neutrophil # 8.21 X10^3/uL (2.7-7.7); Neutrophil % 84.7 % (47-70); POSITIVE MORPHOLOGY YES; Platelet Count 229 K/mm3 (150-450); RBC Distribution Width CV 19.6 % (11.6-14.6); RBC Distribution Width SD 77.3 fl (35.1-43.9); Red Blood Count 3.53 M/mm3 (4.6-6.2); White Blood Count 9.7 K/mm3 (4.4-11.0)
--- NOTE | 2020-01-11 11:45 | CM.ED ---
SOCIAL WORK Reason for Consult: Stroke Alert Responded to Stroke Alert. Physician and nursing in with patient. No family/friends present. Reviewed chart from previous visit. Per chart review, patient lives home alone in an apartment and is active with [facility], Yoselyn Henderson. HPOA is brother, Carmine Givens who resides in [place]. This worker to remain available for needs. Plan: MIRNA Leonardo, CUSTOMER EXPERIENCE ANALYST, VENEER GLUER
[2020-01-11 11:48] LABS: Differential Indicated SCAN CRITERIA MET
[2020-01-11 11:54] LABS: International Normalized Ratio 0.9; Prothrombin Time (Protime)PT. 12.1 SECONDS (11.7-14.9)
[2020-01-11 11:55] LABS: Partial Thromboplast Time 24.3 Seconds (24.1-36.2)
[2020-01-11 12:02] LABS: Anion Gap 8 (5-15); BUN 14 mg/dL (7-18); Calcium,Total 9.2 mg/dL (8.5-10.1); Chloride 99 mmol/L (98-107); Creatinine, Serum 1.17 mg/dL (0.70-1.30); EST Glomerular Filtration Rate 68 mL/min (>60); Est Glom Filt Rate - Afr Amer 83 mL/min (>60); Estimated Creatinine Clearance 62.12 ml/min; Glucose 132 mg/dL (74-106); Potassium 4.1 mmol/L (3.5-5.1); Sodium Level 141 mmol/L (136-145)
[2020-01-11 12:13] LABS: Anisocytosis 2+; Macrocytosis 1+; Microcytosis 1+
--- NOTE | 2020-01-11 12:19 | ED.RN ---
unable to obtain second iv site prior to tpa administration. catheter was not placed prior to tpa administration
--- NOTE | 2020-01-11 12:24 | RAD_ITS ---
STUDY: X-RAY CHEST REASON FOR EXAM: Male, 54 years old. CVA/TIA TECHNIQUE: Single AP portable view of the chest. COMPARISON: Comparison is made with prior study dated November 23, 2019. FINDINGS: EKG electrodes are seen. Stable soft tissue mass in the left lung apex. There is retraction of the left hilum superiorly. There is no demonstrated pleural abnormality. Normal size heart. Normal mediastinum and [place]. Normal visualized pulmonary arteries. Normal visualized aortic arch and descending thoracic aorta. Normal visualized thoracic spine. Normal visualized ribs, clavicles, and shoulders. There is no demonstrated abnormality of the visualized soft tissue structures of the upper abdomen. RAD/Chest 1 View IMPRESSION: Stable soft tissue mass in the left leg apex with retraction of the left hilum. Electronically Signed: Baljinder Olivo, at 12:51 EDT , Service support ,
--- NOTE | 2020-01-11 12:35 | CM.ED ---
Addendum entered by Vanesa Leonardo 01/11/20 15:43: Received call back from patient's Mold Maker Plaster, Yoselyn Henderson. Updated on patient's admission and status. Yoselyn requesting updates regarding discharge planning prior to discharge. Original Note: SOCIAL WORK Call to patient's Mold Maker Plaster, Yoselyn Henderson through [facility] to update on patient's admission. No answer, left message with call back information. Elliot Leonardo, SHUTDOWN COORDINATOR, BILLING TYPIST
--- NOTE | 2020-01-11 12:37 | ED.VIS.STROK ---
History of Present Illness Chief Complaint: Neuro S/Sx Narrative: Patient presenting due to concern for stroke. Last known well was 2 hours prior to arrival. Patient was noted to have altered mental status by a friend who called EMS. Patient was aphasic for EMS, prehospital stroke team was activated. No additional history was able to be obtained. Past Medical History - Allergies and Home Meds Allergies/Adverse Reactions: Allergies No Known Allergies Allergy (Verified 11/23/19 15:42) Prior records reviewed: Yes Past Medical History: - - Hypertension, hyperlipidemia, past psychiatric history Surgical History: noncontributory Lives: Friends Smoking Status: Current every day smoker - Family History Maternal Family History: Reports: - - no lung cancer. He thinks his mother is bipolar Review of Systems ROS: Unable to Obtain STROKE Vital Signs/Narrative: Vital Signs Temp Pulse Resp BP Pulse Ox 01/11/20 12:32 96.9 F L 100 15 96 01/11/20 12:27 96.9 F L 115 H 20 H 140/93 H 96 01/11/20 12:20 98.5 F 97 20 H 140/93 H 99 01/11/20 12:12 96.9 F L 103 H 19 H 140/93 H 96 01/11/20 12:07 98.5 F 99 20 H 129/83 H 99 01/11/20 11:50 107 H 15 126/81 H 95 01/11/20 11:29 98.5 F 104 H 17 126/81 H 94 Inital Vital Signs reviewed: Yes General: Well nourished, Well developed Head: Normocephalic, Atraumatic Eyes: Perrl, EOMI ENT: Moist mucous membranes, No rhinorrhea Neck: Supple, Nontender Cardiovascular: Regular rate, Regular rhythm, No murmurs Respiratory: No distress, CTA bilaterally, Chest nontender Abdomen: Soft, Nontender, Nondistended, Normal bowel sounds Back: Nontender, Normal Inspection Extremities: Nontender, No edema Skin: Normal color, No rash Neurological: - - NIH stroke scale is 5. Patient has severe expressive and receptive a aphasia, did not answer questions correctly, did follow commands, and had right leg drift. Diagnostic/Tx/Re-eval - EKG Initial EKG Interpretation: - - Baseline artifact with sinus tachycardia and a rate of 106, isoelectric ST segments normal T waves no evidence of acute ischemia or arrhythmia - Medical Decision Making Stroke Team Activated: Yes Reviewed Inclusion/Exclusion criteria: Yes IV Alteplase (t-PA) Administered: Yes No contraindications for IV Alteplase (t-PA) administration.: Yes Alteplase (t-PA) risks, benefits, alternative discussed: No - Patient was a phasic, and we were unable to contact his power of environmental attorney Patient presented as a prehospital stroke team. I saw the patient as he came in from the ambulance bay and he was protecting his airway so he was taken directly to CT. CT per radiology showed no evidence of acute process, CT angiogram was still pending at that time. Patient appears to have severe expressive and receptive a aphasia with minimal right-sided symptoms consistent with a stroke. Patient did come in with all of his medications, I went through all of these he does not appear to be on any anticoagulants, and did not have any outward signs of trauma that would indicate head injury. I reviewed his records, he does not appear to have history of intracranial hemorrhage. We decided that the patient was appropriate for TPA initiation. Neurology agreed with this assessment. Patient was administered TPA, and will be admitted to the intensive care unit. Clinical Impression(s) from Imaging Studies Brain CT 01/11/20 11:29 IMPRESSION: Chronic involutional changes of the brain. N.B. : The above information has been verbally conveyed by Baljinder Olivo to Tez Iraheta on 01/11/2020 11:43:32 (ET). Electronically Signed: Baljinder Olivo, at 11:44 EDT , Service support , ADDENDUM: 01/11/20 1151 IMPRESSION: Chronic involutional changes of the brain. N.B. : The above information has been verbally conveyed by Baljinder Olivo to Tez Iraheta on 01/11/2020 11:43:32 (ET). Electronically Signed: Baljinder Olivo, at 11:44 EDT , Service support , Head/Neck CTA 01/11/20 11:31 IMPRESSION: Greater than 70% stenosis of both internal carotid arteries at their origins due to calcific plaque. Electronically Signed: Baljinder Geovani, at 11:54 EDT , Service support , ADDENDUM: 01/11/20 1213 IMPRESSION: Greater than 70% stenosis of both internal carotid arteries at their origins due to calcific plaque. N.B. : The above information has been verbally conveyed by Baljinder Olivo to Dr Esequiel MD, on 01/11/2020 12:06:34 (ET). Electronically Signed: Baljinder Geovani, at 11:54 EDT , Service support , Laboratory Data 01/11/20 01/11/20 01/11/20 11:35 11:35 11:35 WBC 9.7 RBC 3.53 L Hgb 12.1 L Hct 37.7 L MCV 106.8 H MCH 34.3 H MCHC 32.1 RDW Std Deviation 77.3 H RDW Coeff of Sophie 19.6 H Plt Count 229 MPV 10.6 Immature Gran % (Auto) 0.400 Neut % (Auto) 84.7 H Lymph % (Auto) 6.4 L [place] % (Auto) 7.6 Eos % (Auto) 0.7 Baso % (Auto) 0.2 Absolute Neuts (auto) 8.2 H Absolute Lymphs (auto) 0.62 L Nucleated RBC % 0 Anisocytosis 2+ Microcytosis 1+ Macrocytosis 1+ PT 12.1 INR 0.9 APTT 24.3 Sodium 141 Potassium 4.1 Chloride 99 Carbon Dioxide 34.0 H Anion Gap 8 BUN 14 Creatinine 1.17 Estim Creat Clear Calc 62.12 Est GFR (MDRD) Af Amer 83 Est GFR (MDRD) Non-Af 68 BUN/Creatinine Ratio 12.0 Glucose 132 H Calcium 9.2 Troponin I < 0.015 Critical care time (excluding procedures): 30-74 minutes ED Disposition - Plan for ED Patient: Disposition: Acute Care Hospital [facility] Diagnosis: Ischemic stroke
--- NOTE | 2020-01-11 12:56 | PCM.HP.STD ---
History of Present Illness Date of Admission: 01/11/20 Chief Complaint: MS changes with global aphasia The patient is a 54 year old M who was brought to the ED by the squad today after a friend noted a change in MS. His last known well time was 2 hrs prior to presentation. The EMS found him to be aphasic and a prehospital stroke team was initiated. His initial NIH was 4 and repeat was 5. CT of the head was negative for bleeding and CTA showed no cutoffs but did demonstrate B ICA stenosis at 70%. [facility] stroke consultation requested that tPA be given. Per nsg his sx have improved some but he is still fairly aphasic with inconsistent with command following. VS are stable other than some minimal tachycardia and low grade HTN (140's/mid 90's). He has a mild macrocytic anemia and elevated HCO3 with 2/2 suspected CO2 retention related to his COPD. Troponin was WNL. EKG showed sinus tach. Past Medical History Past Medical History (Chronic Problems): Chronic Problems (Last Updated 01/11/20 @ 13:[address] 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 Jacy Moreno DO) Depression F32.9 DM2 (diabetes mellitus, type 2) E11.9 Non-small cell lung cancer C34.90 HTN (hypertension) I10 Allergies No Known Allergies Allergy (Verified 11/23/19 15:42) Home Medications: Ambulatory Orders Medication Instructions Recorded Citalopram [Celexa] 40 mg PO DAILY 12/15/16 Folic Acid 1 mg PO DAILY 08/25/19 Levothyroxine [Synthroid] 75 mcg PO DAILY 10/09/19 Omeprazole 40 mg PO DAILY 10/09/19 Atorvastatin Calcium [Lipitor] 40 mg PO QHS #30 tab 10/30/19 Calcium Carbonate [Tums] 500 mg PO BIDCM #60 tab 10/30/19 Lisinopril [Zestril] 5 mg PO DAILY #30 tab 10/30/19 Magnesium Chloride [Slow-Mag] 71.5 mg PO Q8H #90 tablet. 10/30/19 Pregabalin [Lyrica] 150 mg PO BID #60 cap 10/30/19 Quetiapine Fumarate [Seroquel] 300 mg PO QHS #30 tab 10/30/19 Tamsulosin HCl [Flomax] 0.4 mg PO DAILY@1730 #30 cap 10/30/19 Ergocalciferol [Vitamin D] 50,000 unit PO WE 11/23/19 Meloxicam 15 mg PO BID 11/23/19 Ciprofloxacin 0.3% [Ciloxan] 2 drp EACH EYE Q4 #1 bottle 11/29/19 Surgical History: noncontributory Psychiatric History: Bipolar - he tells me that he does not know if he is bipolar or not but, he thinks his mother is bipolar Lives: Friends Smoking Status: Current every day smoker - *Family History Maternal History Items: - - no lung cancer. He thinks his mother is bipolar Review of Systems Unable to obtain accurate/complete ROS d/t: unable to obtain 2/2 aphasia VTE Information - Inpt Only VTE Present on Admission: No VTE Mechan Device Prophylaxis: SCD's VTE Pharm Prophylaxis ordered?: No Reason prophylaxis not ordered:: Treatment Not Indicated - Ordered for 24 hrs s/p tPA Patient Problems: Active and Suspected Problems (Last Updated 01/11/20 @ 13:[address] Jacy Moreno DO) Ischemic stroke (Acute) - Physical Exam Vitals/I&O's: Vital Signs Temp Pulse Resp BP Pulse Ox 96.7 F L 100 14 136/99 H 99 01/11/20 12:42 01/11/20 12:42 01/11/20 12:42 01/11/20 12:42 01/11/20 12:42 Oxygen Flow Rate (L/min) 2 Oxygen Delivery Method Nasal Cannula Weight: 62.3 kg Body Mass Index (BMI) 22.1 Finger Stick Blood Glucose 144 General: Alert, No apparent distress, Well developed, - - discheveled middle aged male sitting in bed, appears comfortable, non-toxic, difficult with cooperating with exam 2/2 aphasia HEENT: Atraumatic, PERRLA, EOMI, Normocephalic, EAC Clear Oral: Moist Mucosa, No Gingival or Mucosal Lesions/ Ulcerations, - - dentures in place Neck: Supple, No JVD, No Nodes, No Nuchal Rigidity, Trachea Midline, Thyroid Normal Size and Texture Lungs: No rhonchi, No wheeze, No rales, Diminished - diffusely but most notabley in [place] Cardiovascular: Regular rate, Regular Rhythm, Normal S1, Normal S2, No Ectopic Activity, No rub noted, No Gallop Abdomen: Bowel Sounds Present, Soft, Non Tender, Non-Distended, No hernias noted Extremities: No cyanosis, No edema, Capillary Refill Less than 3 Seconds, Clubbing - mild, Diminished Peripheral Pulses - 1+ Skin: No rashes, No breakdown, - - skin is dirty Musculoskeletal: No Tenderness to Palpation of Joints or Extremities, No Muscle Wasting Lymphatic: No Cervical, Supraclavicular, or Inguinal Adenopathy Neurological: Cranial nerves II-XII grossly intact - exam difficult, Deep Tendon Reflexes 2+/4 and Symmetrical, Muscle tone normal, Coordination normal, - - severe global aphasia Psych/Mental Status: - - calm Laboratory Results 01/11/20 11:35: WBC 9.7, RBC 3.53 L, Hgb 12.1 L, Hct 37.7 L, MCV 106.8 H, MCH 34.3 H, MCHC 32.1, RDW Std Deviation 77.3 H, RDW Coeff of Sophie 19.6 H, Plt Count 229, MPV 10.6, Immature Gran % (Auto) 0.400, Neut % (Auto) 84.7 H, Lymph % (Auto) 6.4 L, [place] % (Auto) 7.6, Eos % (Auto) 0.7, Baso % (Auto) 0.2, Absolute Neuts (auto) 8.2 H, Absolute Lymphs (auto) 0.62 L, Nucleated RBC % 0, Anisocytosis 2+, Microcytosis 1+, Macrocytosis 1+ 01/11/20 11:35: PT 12.1, INR 0.9, APTT 24.3 01/11/20 11:35: Sodium 141, Potassium 4.1, Chloride 99, Carbon Dioxide 34.0 H, Anion Gap 8, BUN 14, Creatinine 1.17, Estim Creat Clear Calc 62.12, Est GFR (MDRD) Af Amer 83, Est GFR (MDRD) Non-Af 68, BUN/Creatinine Ratio 12.0, Glucose 132 H, Calcium 9.2, Troponin I < 0.015 Current Medications Acetaminophen (Tylenol) 650 mg PO .X1 PRN PRN Reason: Temp > 99.6 F Diphenhydramine HCl (Benadryl) 50 mg IV .X1 PRN PRN Reason: Allergic Reaction Stop: 01/13/20 11:57 Epinephrine HCl () 0.3 mg IM .X1 PRN PRN Reason: Allergic Reaction Stop: 01/13/20 11:57 Sodium Chloride () 1,000 mls @ 100 mls/hr IV .Q10H NANDA Famotidine 20 mg/ Sodium (Chloride) 10 mls @ 300 mls/hr IV .X1 PRN PRN Reason: Allergic Reaction Stop: 01/13/20 11:57 Nicardipine/Dextrose (Cardene-Dex 20 Mg/200 Ml Soln) 20 mg in 200 mls @ 50 mls/hr IV .Q4H PRN; Protocol PRN Reason: See Instructions Labetalol HCl (Trandate) 20 mg IV X1 PRN PRN Reason: BLOOD PRESSURE Methylprednisolone (Solu-Medrol) 125 mg IV .X1 PRN PRN Reason: Allergic Reaction Stop: 01/13/20 11:57 Nicotine (Nicoderm Cq (Pbkc)) 21 mg TRANSDERM. DAILY NANDA Assessment/Plan All Active Problems (Last Updated 01/11/20 @ 13:[address] Jacy Moerno, DO) Ischemic stroke (Acute) Chronic diarrhea (Resolved) History of illicit drug use (Resolved) Iron deficiency anemia (Resolved) Global Aphasia with Suspected Ischemic Stroke -Initial NIH 4--> repeat 5 -tPA give in ED -Stroke order set in place -CTA with B 70% carotid stenosis -hold on vascular consult with Metastatic lung cancer -MRI in am -hold on ECHO--> had one done on 11/2019--> EF was 65% with stage 2 diastolic dysfunction -NIH per protocols -NPO until bedside swallow--> ? 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 Harper -will try to get in touch with Dr. Harper to find out the details regarding his lung ca -prn nebs -MRI in am -if has metastatic disease to the brain would be high risk for bleeding with tPA DM-2 -A1c was 4.7 on 11/24/2019 -monitor on BMP and if elevated add SSI HTN/HPL -allow for permissive HTN with SBP goal 140-160 -hold home meds and use PRN only for now -Statin Lipitor 80 mg once passes swallow eval Macrocytic Anemia -B12 and Folate done in October and WNL -likely related to EtOH abuse -Fe Studies unremarkable Hypothyroidism -continue synthroid Vitamin D Deficiency -Ergocalciferol weekly -hold for now Breen's Esophagus -PPI H/O EtOH Abuse -will check tox and EtOH level -monitor for s/o withdrawal -avoid sedation for now 2/2 stroke BPH -hold flomax for now Depression -continue Seroquel and SSRI DVT prophylaxis -SCD until 24 hrs s/p tPA then Lovenox Code Status -Full Inpatient E&M: 21851 Init Hosp L3
[2020-01-11] MEDS: 0.9% Normal Saline 1,000 ML 100 ML IV ×2 (13:59→23:52)
--- NOTE | 2020-01-11 14:58 | CON.PCM_ITS ---
Problem List (1) Tobacco dependence Status: Chronic (2) Hypertension Status: Chronic Qualifiers: Hypertension type: essential hypertension Qualified Code(s): I10 - Essential (primary) hypertension (3) Peripheral neuropathy Status: Chronic Comment: due to compression of the left brachial plexus by pancoast tumor left apes due to adenocarcinoma (4) Hypothyroidism Status: Chronic (5) Diabetes mellitus type 2 in nonobese Status: Chronic (6) GERD (gastroesophageal reflux disease) Status: Chronic Comment: with a hx of Breen's esophagus (7) Adenocarcinoma of left lung Status: Chronic Comment: with a metastatic lesion in the RUL (8) Alcohol abuse Status: Chronic (9) Barretts esophagus Status: Chronic (10) Chronic hepatitis C Status: Chronic (11) Major depression with psychotic features Status: Chronic (12) Ischemic stroke Status: Acute Reason for Consult Date of Consultation: 01/11/20 Reason for Consultation: Acute CVA status post TPA History of Present Illness: The patient is a 54 year old M, with past medical history listed below and known to me from a recent hospitalization, who presented to [facility] on 01/11/2020 secondary to concerns for stroke. Patient reportedly was last known well 2 hours prior to arrival he was noted to have altered mental status by a friend who called EMS. Patient was aphasic for EMS, so prehospital stroke team was activated. On arrival, patient was given an NIH of 5 secondary to severe expressive aphasia, receptive aphasia and poor orientation. Patient also reportedly had a right leg drift. CT head without contrast and a CTA were obtained and patient was given TPA. Patient was transferred to the intensive care unit for further evaluation. Laboratory work-up was suggestive of CO2 retention and EKG showed only sinus tachycardia. Troponin was within normal limits. On my evaluation of the patient, patient refused to follow commands or attempt to answer. Patient appeared to be frustrated and the nurse reports that he has had multiple NIH is recently. Patient reportedly has weakness in all 4 extremities, but has intermittently complied with requests including [id number]. Patient has had some mild hypertension. Past Medical History Past Medical History (Chronic Problems): Chronic Problems (Last Updated 01/11/20 @ 13:[address] Jacy Moreno, DO) Closed right hip fracture (Chronic) New onset seizure (Chronic) likely due to profound hypocalcemia (< 5) EEG and MRI normal Hypocalcemia (Chronic) Tobacco dependence (Chronic) Hypertension (Chronic) Peripheral neuropathy (Chronic) due to compression of the left brachial plexus by pancoast tumor left apes due to adenocarcinoma Hypothyroidism (Chronic) Diabetes mellitus type 2 in nonobese (Chronic) Chronic narcotic use (Chronic) GERD (gastroesophageal reflux disease) (Chronic) with a hx of Breen's esophagus Thrombocytopenia (Chronic) History of hemiarthroplasty of right hip (Chronic) 10/09/[address] 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 Jacy Moreno, DO) Depression F32.9 DM2 (diabetes mellitus, type 2) E11.9 Non-small cell lung cancer C34.90 HTN (hypertension) I10 Allergies No Known Allergies Allergy (Verified 11/23/19 15:42) Home Medications: Ambulatory Orders Medication Instructions Recorded Citalopram [Celexa] 40 mg PO DAILY 12/15/16 Folic Acid 1 mg PO DAILY 08/25/19 Levothyroxine [Synthroid] 75 mcg PO DAILY 10/09/19 Omeprazole 40 mg PO DAILY 10/09/19 Atorvastatin Calcium [Lipitor] 40 mg PO QHS #30 tab 10/30/19 Calcium Carbonate [Tums] 500 mg PO BIDCM #60 tab 10/30/19 Lisinopril [Zestril] 5 mg PO DAILY #30 tab 10/30/19 Magnesium Chloride [Slow-Mag] 71.5 mg PO Q8H #90 tablet. 10/30/19 Pregabalin [Lyrica] 150 mg PO BID #60 cap 10/30/19 Quetiapine Fumarate [Seroquel] 300 mg PO QHS #30 tab 10/30/19 Tamsulosin HCl [Flomax] 0.4 mg PO DAILY@1730 #30 cap 10/30/19 Ergocalciferol [Vitamin D] 50,000 unit PO WE 11/23/19 Meloxicam 15 mg PO BID 11/23/19 Ciprofloxacin 0.3% [Ciloxan] 2 drp EACH EYE Q4 #1 bottle 11/29/19 Surgical History: noncontributory Psychiatric History: Bipolar - he tells me that he does not know if he is bipolar or not but, he thinks his mother is bipolar Lives: Friends Smoking Status: Current every day smoker - *Family History Maternal History Items: - - no lung cancer. He thinks his mother is bipolar Review of Systems Unable to obtain accurate/complete ROS d/t: Acute CVA with aphasia Patient Problems: Active and Suspected Problems (Last Updated 01/11/20 @ 13:[address] Jacy Moreno, DO) Ischemic stroke (Acute) Objective: All imaging was personally reviewed. Chest x-ray shows no acute infiltrate, but does have a stable left apical density. Patient did have an echocardiogram in November that was relatively unremarkable. - Physical Exam Vitals/I&O's: Vital Signs Temp Pulse Resp BP Pulse Ox 36.7 C 100 16 154/102 H 100 01/11/20 14:15 01/11/20 14:15 01/11/20 14:15 01/11/20 14:15 01/11/20 14:15 Oxygen Flow Rate (L/min) 2 Oxygen Delivery Method Nasal Cannula Weight: 60.6 kg Body Mass Index (BMI) 21.4 Finger Stick Blood Glucose 144 Intake and Output for Last 24 Hours 01/09/20 01/10/20 01/11/20 23:59 23:59 23:59 Intake Total 50.6 / 50.6 Output Total 0 / 0 Balance 50.6 / 50.6 General: Alert, No apparent distress, Non-Cooperative, - - Smells like smoke. Readily looks away from eye contact HEENT: Atraumatic, PERRLA, EOMI, Normocephalic, - - No scleral icterus or injection noted Oral: Moist Mucosa, No Gingival or Mucosal Lesions/ Ulcerations, - - Fair dentition Neck: Supple, No JVD, No Nodes, Trachea Midline Lungs: No rhonchi, No wheeze, No rales, Diminished, - - Symmetric expansion. No dullness to percussion. Cardiovascular: Regular rate, Regular Rhythm, Normal S1, Normal S2, No murmurs, No Ectopic Activity - Noted on telemetry, No rub noted, No Gallop Abdomen: Bowel Sounds Present, Soft, Non Tender, Non-Distended Extremities: No cyanosis, No edema, Clubbing - Stage I, Diminished Peripheral Pulses Skin: No rashes, No breakdown, - - Skin is dirty without obvious breaks Musculoskeletal: No Tenderness to Palpation of Joints or Extremities Lymphatic: No Cervical, Supraclavicular, or Inguinal Adenopathy Neurological: - - Difficult exam secondary to patient cooperation. Appears to have severe global aphasia and is visibly frustrated. Readily moves all 4 extremities. Sensation is intact. Possible right facial droop Psych/Mental Status: Agitated, Anxious Laboratory Results 01/11/20 11:33: Ethyl Alcohol 3.0 01/11/20 11:35: WBC 9.7, RBC 3.53 L, Hgb 12.1 L, Hct 37.7 L, MCV 106.8 H, MCH 34.3 H, MCHC 32.1, RDW Std Deviation 77.3 H, RDW Coeff of Sophie 19.6 H, Plt Count 229, MPV 10.6, Immature Gran % (Auto) 0.400, Neut % (Auto) 84.7 H, Lymph % (Auto) 6.4 L, Starr % (Auto) 7.6, Eos % (Auto) 0.7, Baso % (Auto) 0.2, Absolute Neuts (auto) 8.2 H, Absolute Lymphs (auto) 0.62 L, Nucleated RBC % 0, Anisocytosis 2+, Microcytosis 1+, Macrocytosis 1+ 01/11/20 11:35: PT 12.1, INR 0.9, APTT 24.3 01/11/20 11:35: Sodium 141, Potassium 4.1, Chloride 99, Carbon Dioxide 34.0 H, Anion Gap 8, BUN 14, Creatinine 1.17, Estim Creat Clear Calc 62.12, Est GFR (MDRD) Af Amer 83, Est GFR (MDRD) Non-Af 68, BUN/Creatinine Ratio 12.0, Glucose 132 H, Calcium 9.2, Troponin I < 0.015 Current Medications Acetaminophen (Tylenol) 650 mg PO .X1 PRN PRN Reason: Temp > 99.6 F Acetaminophen (Tylenol) 650 mg PO Q4H PRN PRN PRN Reason: Headache/Temp>99.6F Acetaminophen (Tylenol) 650 mg RECTAL Q4H PRN PRN PRN Reason: Headache/Temp>99F Acetaminophen (Tylenol Liquid) 650 mg NG Q4H PRN PRN PRN Reason: Headache/Temp>99F Atorvastatin Calcium (Lipitor) 80 mg PO QHS NANDA Citalopram Hydrobromide (Celexa) 40 mg PO DAILY NANDA Dextrose (D50w Syringe) 0 gm IV X1 PRN; Protocol PRN Reason: Hypoglycemia Diphenhydramine HCl (Benadryl) 50 mg IV X1 PRN PRN Reason: Allergic Reaction Stop: 01/13/20 14:44 Enoxaparin Sodium (Lovenox) 40 mg SC DAILY NANDA Epinephrine HCl () 0.3 mg IM X1 PRN PRN Reason: Allergic Reaction Stop: 01/13/20 14:44 Glucagon () 1 mg IM .X1 PRN PRN Reason: Hypoglycemia Sodium Chloride () 1,000 mls @ 100 mls/hr IV .Q10H NANDA Famotidine 20 mg/ Sodium (Chloride) 10 mls @ 300 mls/hr IV X1 PRN PRN Reason: Allergic Reaction Stop: 01/13/20 14:44 Nicardipine/Dextrose (Cardene-Dex 20 Mg/200 Ml Soln) 20 mg in 200 mls @ 50 mls/hr IV .Q4H PRN; Protocol PRN Reason: See Instructions Labetalol HCl (Trandate) 20 mg IV X1 PRN PRN Reason: BP MANAGEMENT Levothyroxine Sodium (Synthroid) 75 mcg PO DAILY NANDA Methylprednisolone (Solu-Medrol) 125 mg IV X1 PRN PRN Reason: Allergic Reaction Stop: 01/13/20 14:44 Nicotine (Nicoderm Cq (Pbkc)) 21 mg TRANSDERM. DAILY NANDA Non-Formulary Medication (Omeprazole) 40 mg PO DAILY NANDA Non-Formulary Medication (Quetiapine Fumarate [Seroquel]) 300 mg PO QHS NANDA Sodium Chloride () 10 - 40 ml IV UD PRN PRN Reason: SALINE FLUSH Clinical Impression(s) from Imaging Studies Brain CT 01/11/20 11:29 IMPRESSION: Chronic involutional changes of the brain. N.B. : The above information has been verbally conveyed by Baljinder Olivo to Tez Iraheta on 01/11/2020 11:43:32 (ET). Electronically Signed: Baljinder Olivo, at 11:44 EDT , Service support , ADDENDUM: 01/11/20 1151 IMPRESSION: Chronic involutional changes of the brain. N.B. : The above information has been verbally conveyed by Baljinder Olivo to Tez Iraheta on 01/11/2020 11:43:32 (ET). Electronically Signed: Baljinder Olivo, at 11:44 EDT , Service support , Head/Neck CTA 01/11/20 11:31 IMPRESSION: Greater than 70% stenosis of both internal carotid arteries at their origins due to calcific plaque. Electronically Signed: Baljinder Olivo, at 11:54 EDT , Service support , ADDENDUM: 01/11/20 1213 IMPRESSION: Greater than 70% stenosis of both internal carotid arteries at their origins due to calcific plaque. N.B. : The above information has been verbally conveyed by Baljinder Olivo to Dr Esequiel MD, on 01/11/2020 12:06:34 (ET). Electronically Signed: Baljinder Olivo, at 11:54 EDT , Service support , Chest X-Ray 01/11/20 12:24 IMPRESSION: Stable soft tissue mass in the left leg apex with retraction of the left hilum. Electronically Signed: Baljinder Olivo, at 12:51 EDT , Service support , Assessment/Plan Active and Suspected Problems (Last Updated 01/11/20 @ 13:[address] Jacy Moreno DO) Ischemic stroke (Acute) RECOMMENDATIONS: 1. Initiate post TPA protocol, note blood pressure goals 2. Keep saturations greater than 94% 3. N.p.o. until bedside swallow eval 4. MRI at 24 hours 5. Aspirin and Lipitor if able to pass swallow evaluation with no bleeding complications IMPRESSIONS: 1. Suspected acute ischemic stroke status post TPA Blood pressure goal of systolic blood pressure between 140 and 160, not up to 220, given patient was given TPA. Patient will have an MRI in the morning. Patient does appear to have some carotid stenosis that may serve as a nidus. Patient should remain n.p.o. until evaluated by bedside swallow eval. PT/OT will be ordered. Neurology to evaluate patient after MRI. 2. Non-small cell lung cancer with left Pancoast tumor/history of COPD/active tobacco abuse Follows with Dr. Harper. Patient is receiving chemotherapy as of last hospitalization. No obvious metastasis noted on CT scan of the head. Keep saturations greater than 94% per ischemic stroke recommendations. 3. Diabetes mellitus type 2/hypertension/hyperlipidemia/macrocytic anemia/Breen esophagus/history of alcohol abuse/BPH/depression Complicates care, management, recovery and prognosis. Patient did have alcohol in his system on presentation. We will have to watch for signs and symptoms of withdrawal. Synthroid can be given IV. Lipitor will have to be initiated once swallow is passed. No aspirin until potential hemorrhagic com plications are assessed to 24 hours. Inpatient E&M: 39072 Init Hosp L3
[2020-01-11 17:59] LABS: Amphetamine Urine VISTA NEGATIVE (<1000 ng/mL); Barbiturate Urine VISTA NEGATIVE (< 200 ng/mL); Benzodiazepine Urine VISTA NEGATIVE (< 200 ng/mL); Cocaine Urine VISTA NEGATIVE (< 300 ng/mL); Ecstacy Urine VISTA NEGATIVE (< 500 ng/mL); Methadone Urine VISTA POSITIVE (< 300 ng/mL); PCP Urine VISTA NEGATIVE (< 25 ng/mL); THC Urine VISTA POSITIVE (< 50 ng/mL); Vista UDS pH Range 6
[2020-01-11 18:11] LABS: Bedside Glucose 104 mg/dL (70-110)
[2020-01-12] VITALS (32 sets, daily range): BP systolic 108–163; BP diastolic 60–96; PULSE 77–113; RESP 10–20; TEMP 36.3–36.9; O2SAT 92–99; BMI 21.4
[2020-01-12 03:52] LABS: Absolute Lymphocyte Count 0.59 X10^3/uL (0.83-4.51); Absolute Neutrophil Count 5.4 X10^3/uL (2.0-7.7); Basophil# 0.01 X10^3/uL; Basophil% 0.2 % (0-1); Eosinophil# 0.08 X10^3/uL; Eosinophils% 1.2 % (0-5); Hemoglobin 10.1 g/dL (13.0-16.5); Lymphocyte # 0.59 X10^3/ul (4.0); Lymphocyte % 8.9 % (19-41); Mean Corp Hgb Conc 31.6 g/dL (32-36); Mean Corpuscular Hgb 34.6 pg (27.0-32.0); Mean Corpuscular Volume 109.6 fL (80-94); Mean Platelet Vol. 10.3 fl (6.2-12.0); Monocyte# 0.48 X10^3/uL; Monocyte% 7.3 % (0-10); NRBC Flagged by Analyzer 0 % (0-5); Neutrophil # 5.41 X10^3/uL (2.7-7.7); Neutrophil % 81.9 % (47-70); POSITIVE DIFFERENTIAL YES; POSITIVE MORPHOLOGY YES; Platelet Count 183 K/mm3 (150-450); RBC Distribution Width CV 19.4 % (11.6-14.6); RBC Distribution Width SD 77.9 fl (35.1-43.9); Red Blood Count 2.92 M/mm3 (4.6-6.2); White Blood Count 6.6 K/mm3 (4.4-11.0)
[2020-01-12 03:53] LABS: Differential Indicated SCAN CRITERIA MET
[2020-01-12 04:14] LABS: ALB/GLOB Ratio 0.7 RATIO (0.9-2.4); AST(SGOT) 12 U/L (15-37); Alanine Aminotransfer ALT/SGPT 12 U/L (16-61); Albumin, Serum 2.8 g/dL (3.2-5.0); Alkaline Phosphatase 77 U/L (45-117); Anion Gap 5 (5-15); BUN 14 mg/dL (7-18); BUN/Creat Ratio 14.8 RATIO (10-20); Calcium,Total 8.2 mg/dL (8.5-10.1); Chloride 104 mmol/L (98-107); Cholesterol 203 mg/dL (200); Creatinine, Serum 0.94 mg/dL (0.70-1.30); EST Glomerular Filtration Rate 88 mL/min (>60); Est Glom Filt Rate - Afr Amer 106 mL/min (>60); Estimated Creatinine Clearance 75.21 ml/min; Globulin 4.1 g/dL (2.2-4.2); Glucose 84 mg/dL (74-106); High Density Lipoprotein 49 mg/dL; Magnesium 1.5 mg/dL (1.6-2.6); Potassium 3.3 mmol/L (3.5-5.1); Protein, Total 6.9 g/dL (6.4-8.2); Sodium Level 143 mmol/L (136-145); Thyroid Stim Hormone (TSH) 1.82 uIU/mL (0.358-3.74); Triglycerides 213 mg/dL; Very Low Density Lipoprotein 43 mg/dL (5-40)
[2020-01-12 04:39] LABS: Differential Comment SCANNED; Macrocytosis 3+
[2020-01-12 05:12] LABS: Phosphorus 3.2 mg/dL (2.5-4.9)
--- NOTE | 2020-01-12 05:55 | MRI_ITS ---
STUDY: MRI BRAIN WITHOUT CONTRAST REASON FOR EXAM: Male, 54 years old. S/P TPA 24 AGO. Speech changes, history of lung CA. No COR T2 images, pt refused d/t claustrophobia TECHNIQUE: Standardized multiplanar fat and water weighted pulse sequences were obtained. COMPARISON: CT 01/11/2020, MRI 10/09/2019 FINDINGS: There is mild cerebral atrophy with widening of the extra-axial spaces and ventricular dilatation. There are a limited number of small white matter hyperintensities, distributed throughout the deep white matter tracts of the cerebral hemispheres, consistent with mild chronic white matter ischemic changes. There is no evidence for recent intracranial ischemia or other cause of cytotoxic edema on diffusion weighted imaging (DWI). Normal T2* images of the brain without demonstrated susceptibility artifact. There is no demonstrated hemosiderin stain. Normal bilateral basal ganglia. Normal thalami. There is no extra-axial fluid accumulation. Normal flow voids within the major intracranial circulation suggesting patency by spin echo criteria. Normal sella turcica, pituitary gland, infundibular stalk, optic chiasm and hypothalamus. Normal tectal plate and pineal gland. There are chronic white matter ischemic changes of the shanda. The midbrain and medulla are otherwise normal. Normal cerebellum. Normal basal cisterns. Normal bilateral temporal bones. Normal bilateral internal auditory canals. No demonstrated orbital abnormality, within the constraints of a routine brain study. There is mucoperiosteal inflammatory disease of the paranasal sinuses consistent with mild chronic sinusitis. Normal calvarium and skull base. Normal visualized soft tissue structures. Normal visualized upper cervical spine. MRI/Brain without Contrast IMPRESSION: Involutional changes of the brain, as described above. No acute infarct. Electronically Signed: Glenroy Rainey MD at 13:31 EDT Tel , Service support ,
[2020-01-12] MEDS: Potassium Chloride 10mEq/100mL 10 MEQ/100 ML IV.SOLN. 100 MEQ IV BOLUS ×4 (06:25→09:31)
--- NOTE | 2020-01-12 06:46 | PN_ITS ---
Subjective: Patient did well overnight. Patient reports generalized body aches that are normal for him. Patient denies any headache, dizziness, nausea or vomiting. Patient does report that he is tired, but thinks this is from his frequent examinations. Patient has remained on nasal cannula oxygen in order to maintain sats above 94%. General: Alert, Oriented x3, Cooperative, No apparent distress, Well developed, Well nourished, - - No conversational dyspnea. Good articulation and interaction HEENT: Atraumatic, PERRLA, EOMI, Normocephalic, - - Slight right-sided facial droop Oral: Moist Mucosa, No Gingival or Mucosal Lesions/ Ulcerations Neck: Supple, No JVD, No Nodes, Trachea Midline Lungs: No rhonchi, No wheeze, No rales, Diminished, - - Fair effort. Cardiovascular: Regular rate, Regular Rhythm, Normal S1, Normal S2, No murmurs, No rub noted, No Gallop Abdomen: Bowel Sounds Present, Soft, Non Tender, Non-Distended Extremities: No clubbing, No cyanosis, No edema, Capillary Refill Less than 3 Seconds Skin: - - No change compared to previous Musculoskeletal: No Tenderness to Palpation of Joints or Extremities Lymphatic: No Cervical, Supraclavicular, or Inguinal Adenopathy Neurological: - - NIH of 1 for slight facial droop. Otherwise, aphasia is resolved. Psych/Mental Status: Alert and oriented to time, place, person, mood and affect Vital Signs Temp Pulse Resp BP Pulse Ox 36.6 C 77 10 L 159/96 H 97 01/12/20 05:55 01/12/20 05:55 01/12/20 05:55 01/12/20 04:57 01/12/20 05:55 Oxygen Flow Rate (L/min) 2 Oxygen Delivery Method Nasal Cannula Weight: 62 kg Body Mass Index (BMI) 21.4 Finger Stick Blood Glucose 144 Intake and Output for Last 24 Hours 01/10/20 01/11/20 01/12/20 23:59 23:59 23:59 Intake Total 1140.6 / 1140.6 245 / 245 Output Total 325 / 325 350 / 350 Balance 815.6 / 815.6 -105 / -105 Labs (Last 48 Hours) 01/11/20 01/11/20 01/11/20 11:33 11:35 11:35 WBC 9.7 RBC 3.53 L Hgb 12.1 L Hct 37.7 L MCV 106.8 H MCH 34.3 H MCHC 32.1 RDW Std Deviation 77.3 H RDW Coeff of Sophie 19.6 H Plt Count 229 MPV 10.6 Immature Gran % (Auto) 0.400 Neut % (Auto) 84.7 H Lymph % (Auto) 6.4 L Lasalle % (Auto) 7.6 Eos % (Auto) 0.7 Baso % (Auto) 0.2 Absolute Neuts (auto) 8.2 H Absolute Lymphs (auto) 0.62 L Nucleated RBC % 0 Differential Comment Anisocytosis 2+ Microcytosis 1+ Macrocytosis 1+ PT 12.1 INR 0.9 APTT 24.3 Sodium Potassium Chloride Carbon Dioxide Anion Gap BUN Creatinine Estim Creat Clear Calc Est GFR (MDRD) Af Amer Est GFR (MDRD) Non-Af BUN/Creatinine Ratio Glucose Calcium Phosphorus Magnesium Total Bilirubin AST ALT Alkaline Phosphatase Troponin I Total Protein Albumin Globulin Albumin/Globulin Ratio Triglycerides Cholesterol LDL Cholesterol VLDL Cholesterol HDL Cholesterol TSH Urine Opiates Screen Urine Methadone Screen Ur Barbiturates Screen Ur Phencyclidine Scrn Ur Amphetamines Screen U Methamphetamin-MDMA U Benzodiazepines Scrn Urine Cocaine Screen U Cannabinoids Screen Ur Drug Screen Comment Ethyl Alcohol 3.0 POC Glucose 01/11/20 01/11/20 01/11/20 11:35 17:30 18:07 WBC RBC Hgb Hct MCV MCH MCHC RDW Std Deviation RDW Coeff of Sophie Plt Count MPV Immature Gran % (Auto) Neut % (Auto) Lymph % (Auto) Lasalle % (Auto) Eos % (Auto) Baso % (Auto) Absolute Neuts (auto) Absolute Lymphs (auto) Nucleated RBC % Differential Comment Anisocytosis Microcytosis Macrocytosis PT INR APTT Sodium 141 Potassium 4.1 Chloride 99 Carbon Dioxide 34.0 H Anion Gap 8 BUN 14 Creatinine 1.17 Estim Creat Clear Calc 62.12 Est GFR (MDRD) Af Amer 83 Est GFR (MDRD) Non-Af 68 BUN/Creatinine Ratio 12.0 Glucose 132 H Calcium 9.2 Phosphorus Magnesium Total Bilirubin AST ALT Alkaline Phosphatase Troponin I < 0.015 Total Protein Albumin Globulin Albumin/Globulin Ratio Triglycerides Cholesterol LDL Cholesterol VLDL Cholesterol HDL Cholesterol TSH Urine Opiates Screen NEGATIVE Urine Methadone Screen POSITIVE H Ur Barbiturates Screen NEGATIVE Ur Phencyclidine Scrn NEGATIVE Ur Amphetamines Screen NEGATIVE U Methamphetamin-MDMA NEGATIVE U Benzodiazepines Scrn NEGATIVE Urine Cocaine Screen NEGATIVE U Cannabinoids Screen POSITIVE H Ur Drug Screen Comment Ethyl Alcohol POC Glucose 104 01/12/20 01/12/20 01/12/20 03:00 03:00 03:00 WBC 6.6 RBC 2.92 L Hgb 10.1 L Hct 32.0 L MCV 109.6 H MCH 34.6 H MCHC 31.6 L RDW Std Deviation 77.9 H RDW Coeff of Sophie 19.4 H Plt Count 183 MPV 10.3 Immature Gran % (Auto) 0.500 Neut % (Auto) 81.9 H Lymph % (Auto) 8.9 L [place] % (Auto) 7.3 Eos % (Auto) 1.2 Baso % (Auto) 0.2 Absolute Neuts (auto) 5.4 Absolute Lymphs (auto) 0.59 L Nucleated RBC % 0 Differential Comment SCANNED Anisocytosis Microcytosis Macrocytosis 3+ PT INR APTT Sodium 143 Potassium 3.3 L Chloride 104 Carbon Dioxide 34.0 H Anion Gap 5 BUN 14 Creatinine 0.94 Estim Creat Clear Calc 75.21 Est GFR (MDRD) Af Amer 106 Est GFR (MDRD) Non-Af 88 BUN/Creatinine Ratio 14.8 Glucose 84 Calcium 8.2 L Phosphorus 3.2 Magnesium 1.5 L Total Bilirubin 0.50 AST 12 L ALT 12 L Alkaline Phosphatase 77 Troponin I Total Protein 6.9 Albumin 2.8 L Globulin 4.1 Albumin/Globulin Ratio 0.7 L Triglycerides 213 H Cholesterol 203 H LDL Cholesterol 111 VLDL Cholesterol 43 H HDL Cholesterol 49 TSH 1.82 Urine Opiates Screen Urine Methadone Screen Ur Barbiturates Screen Ur Phencyclidine Scrn Ur Amphetamines Screen U Methamphetamin-MDMA U Benzodiazepines Scrn Urine Cocaine Screen U Cannabinoids Screen Ur Drug Screen Comment Ethyl Alcohol POC Glucose Clinical Impression(s) from Imaging Studies Brain CT 01/11/20 11:29 IMPRESSION: Chronic involutional changes of the brain. N.B. : The above information has been verbally conveyed by Baljinder Olivo to Tez Iraheta on 01/11/2020 11:43:32 (ET). Electronically Signed: Baljinder Olivo, at 11:44 EDT , Service support , ADDENDUM: 01/11/20 1151 IMPRESSION: Chronic involutional changes of the brain. N.B. : The above information has been verbally conveyed by Baljinder Olivo to Tez Iraheta on 01/11/2020 11:43:32 (ET). Electronically Signed: Baljinder Olivo, at 11:44 EDT , Service support , Head/Neck CTA 01/11/20 11:31 IMPRESSION: Greater than 70% stenosis of both internal carotid arteries at their origins due to calcific plaque. Electronically Signed: Baljinder Olivo, at 11:54 EDT , Service support , ADDENDUM: 01/11/20 1213 IMPRESSION: Greater than 70% stenosis of both internal carotid arteries at their origins due to calcific plaque. N.B. : The above information has been verbally conveyed by Baljinder Olivo to Dr Esequiel MD, on 01/11/2020 12:06:34 (ET). Electronically Signed: Baljinder Olivo, at 11:54 EDT , Service support , Chest X-Ray 01/11/20 12:24 IMPRESSION: Stable soft tissue mass in the left leg apex with retraction of the left hilum. Electronically Signed: Baljinder Olivo, at 12:51 EDT , Service support , Medical Necessity - Tobacco Use Smoking Status: Current every day smoker Tobacco Use: Cigarettes Assessment/Plan All Active Problems (Last Updated 01/11/20 @ 13:[address] Jacy Josh, DO) Ischemic stroke (Acute) Chronic diarrhea (Resolved) History of illicit drug use (Resolved) Iron deficiency anemia (Resolved) RECOMMENDATIONS: 1. Continue post TPA protocol, with noted blood pressure goals 2. Keep saturations greater than 94% 3. Speech therapy to evaluate today 4. MRI at 24 hours 5. Aspirin and Lipitor if able to pass swallow evaluation with no bleeding complications 6. Transfer out of intensive care unit if no complications of TPA IMPRESSIONS: 1. Suspected acute ischemic stroke status post TPA Patient with excellent response to TPA therapy. Still may have a mild facial droop that appears to be variable. Blood pressure goal of systolic blood pressure between 140 and 160, not up to 220, given patient was given TPA. Patient will have an MRI later today followed by neurology evaluation. Patient does appear to have some carotid stenosis that may serve as a nidus. Speech therapy to evaluate prior to initiation of p.o therapy. If patient able to tolerate p.o., Lipitor and aspirin should be given if no bleeding noted on MRI. PT/OT will be ordered. Neurology to evaluate patient after MRI. 2. Non-small cell lung cancer with left Pancoast tumor/history of COPD/active tobacco abuse Follows with Dr. Harper. Patient is receiving chemotherapy as of last hospitalization. No obvious metastasis noted on CT scan of the head. Keep saturations greater than 94% per ischemic stroke recommendations. 3. Diabetes mellitus type 2/hypertension/hyperlipidemia/macrocytic anemia/Breen esophagus/history of alcohol abuse/BPH/depression Complicates care, management, recovery and prognosis. Patient did have alcohol in his system on presentation. We will have to watch for signs and symptoms of withdrawal. Synthroid can be given IV. Lipitor will have to be initiated once swallow is passed. No aspirin until potential hemorrhagic complications are assessed to 24 hours. Inpatient E&M: 10186 [facility] L3
--- NOTE | 2020-01-12 08:06 | PN_ITS ---
Patient Problems: Active and Suspected Problems (Last Updated 01/11/20 @ 13:[address] Jacy Moreno, DO) Ischemic stroke (Acute) Subjective: No issues overnight. NIH is now 1. Pt speech and ability to follow commands is much improved. States that he is getting chemo but can't remember his last dosing. Gets this via IV. Vitals/I&O's: Vital Signs Temp Pulse Resp BP Pulse Ox 97.8 F 82 13 156/80 H 92 01/12/20 07:55 01/12/20 07:55 01/12/20 07:55 01/12/20 07:55 01/12/20 07:55 Oxygen Flow Rate (L/min) 2 Oxygen Delivery Method Room Air Weight: 62 kg Body Mass Index (BMI) 21.4 Finger Stick Blood Glucose 144 Intake and Output for Last 24 Hours 01/10/20 01/11/20 01/12/20 23:59 23:59 23:59 Intake Total 1140.6 / 1140.6 341.67 / 341.67 Output Total 325 / 325 350 / 350 Balance 815.6 / 815.6 -8.33 / -8.33 General: Alert, Oriented x3, Cooperative, No apparent distress, - - Thin WM, smells of cigarettes, appears comfortable HEENT: Atraumatic, PERRLA, EOMI, Normocephalic, EAC Clear Oral: Moist Mucosa, No Gingival or Mucosal Lesions/ Ulcerations, - - dentures in placed Neck: Supple, No JVD, Negative Hepatojugular Reflux, No Nodes, Trachea Midline, Thyroid Normal Size and Texture Lungs: Clear to auscultation, Diminished - diffusely Cardiovascular: Regular rate, Regular Rhythm, Normal S1, Normal S2, No murmurs, No Ectopic Activity, No rub noted, No Gallop Abdomen: Bowel Sounds Present, Soft, Non Tender, Non-Distended, No hernias noted Extremities: No clubbing, No cyanosis, No edema, Capillary Refill Less than 3 Seconds, Diminished Peripheral Pulses - 1+ B LE Skin: No rashes, No breakdown Musculoskeletal: No Tenderness to Palpation of Joints or Extremities, No Muscle Wasting Lymphatic: No Cervical, Supraclavicular, or Inguinal Adenopathy Neurological: Cranial nerves II-XII grossly intact, Deep Tendon Reflexes 2+/4 and Symmetrical, Muscle tone normal, Sensory exam intact to light touch and pain, Coordination normal, - - still some delay in speech. no UE pronator drift Psych/Mental Status: Normal Affect, Appropriate, Alert and oriented to time, place, person, mood and affect Laboratory Results 01/11/20 11:33: Ethyl Alcohol 3.0 01/11/20 11:35: WBC 9.7, RBC 3.53 L, Hgb 12.1 L, Hct 37.7 L, MCV 106.8 H, MCH 34.3 H, MCHC 32.1, RDW Std Deviation 77.3 H, RDW Coeff of Sophie 19.6 H, Plt Count 229, MPV 10.6, Immature Gran % (Auto) 0.400, Neut % (Auto) 84.7 H, Lymph % (Auto) 6.4 L, [place] % (Auto) 7.6, Eos % (Auto) 0.7, Baso % (Auto) 0.2, Absolute Neuts (auto) 8.2 H, Absolute Lymphs (auto) 0.62 L, Nucleated RBC % 0, Anisocytosis 2+, Microcytosis 1+, Macrocytosis 1+ 01/11/20 11:35: PT 12.1, INR 0.9, APTT 24.3 01/11/20 11:35: Sodium 141, Potassium 4.1, Chloride 99, Carbon Dioxide 34.0 H, Anion Gap 8, BUN 14, Creatinine 1.17, Estim Creat Clear Calc 62.12, Est GFR (MDRD) Af Amer 83, Est GFR (MDRD) Non-Af 68, BUN/Creatinine Ratio 12.0, Glucose 132 H, Calcium 9.2, Troponin I < 0.015 01/11/20 17:30: Urine Opiates Screen NEGATIVE, Urine Methadone Screen POSITIVE H , Ur Barbiturates Screen NEGATIVE, Ur Phencyclidine Scrn NEGATIVE, Ur Amphetamines Screen NEGATIVE, U Methamphetamin-MDMA NEGATIVE, U Benzodiazepines Scrn NEGATIVE, Urine Cocaine Screen NEGATIVE, U Cannabinoids Screen POSITIVE H, Ur Drug Screen Comment 01/11/20 18:07: POC Glucose 104 01/12/20 03:00: WBC 6.6, RBC 2.92 L, Hgb 10.1 L, Hct 32.0 L, MCV 109.6 H, MCH 34.6 H, MCHC 31.6 L, RDW Std Deviation 77.9 H, RDW Coeff of Sophie 19.4 H, Plt Count 183, MPV 10.3, Immature Gran % (Auto) 0.500, Neut % (Auto) 81.9 H, Lymph % (Auto) 8.9 L, [place] % (Auto) 7.3, Eos % (Auto) 1.2, Baso % (Auto) 0.2, Absolute Neuts (auto) 5.4, Absolute Lymphs (auto) 0.59 L, Nucleated RBC % 0, Differential Comment SCANNED, Macrocytosis 3+ 01/12/20 03:00: Sodium 143, Potassium 3.3 L, Chloride 104, Carbon Dioxide 34.0 H , Anion Gap 5, BUN 14, Creatinine 0.94, Estim Creat Clear Calc 75.21, Est GFR (MDRD) Af Amer 106, Est GFR (MDRD) Non-Af 88, BUN/Creatinine Ratio 14.8, Glucose 84, Calcium 8.2 L, Magnesium 1.5 L, Total Bilirubin 0.50, AST 12 L, ALT 12 L, Alkaline Phosphatase 77, Total Protein 6.9, Albumin 2.8 L, Globulin 4.1, Albumin/Globulin Ratio 0.7 L, Triglycerides 213 H, Cholesterol 203 H, LDL Cholesterol 111, VLDL Cholesterol 43 H, HDL Cholesterol 49, TSH 1.82 01/12/20 03:00: Phosphorus 3.2 Current Medications Acetaminophen (Tylenol) 650 mg PO Q4H PRN PRN PRN Reason: Headache/Temp>99.6F Acetaminophen (Tylenol) 650 mg RECTAL Q4H PRN PRN PRN Reason: Headache/Temp>99F Acetaminophen (Tylenol Liquid) 650 mg NG Q4H PRN PRN PRN Reason: Headache/Temp>99F Atorvastatin Calcium (Lipitor) 80 mg PO QHS [facility] Last Admin: 01/11/20 21:23 Dose: Not Given Documented by: Citalopram Hydrobromide (Celexa) 40 mg PO DAILY [facility] Dextrose (D50w Syringe) 0 gm IV X1 PRN; Protocol PRN Reason: Hypoglycemia Diphenhydramine HCl (Benadryl) 50 mg IV X1 PRN PRN Reason: Allergic Reaction Stop: 01/13/20 14:44 Enoxaparin Sodium (Lovenox) 40 mg SC DAILY@1230 NANDA Epinephrine HCl () 0.3 mg IM X1 PRN PRN Reason: Allergic Reaction Stop: 01/13/20 14:44 Glucagon () 1 mg IM .X1 PRN PRN Reason: Hypoglycemia Haloperidol Lactate (Haldol) 3 mg IV Q6H PRN PRN PRN Reason: AGITATION Sodium Chloride () 1,000 mls @ 100 mls/hr IV .Q10H [facility] Last Infusion: 01/12/20 02:19 Dose: 100 mls/hr Documented by: Famotidine 20 mg/ Sodium (Chloride) 10 mls @ 300 mls/hr IV X1 PRN PRN Reason: Allergic Reaction Stop: 01/13/20 14:44 Nicardipine/Dextrose (Cardene-Dex 20 Mg/200 Ml Soln) 20 mg in 200 mls @ 50 mls/hr IV .Q4H PRN; Protocol PRN Reason: See Instructions Potassium Chloride () 10 meq in 100 mls @ 100 mls/hr IV BOLUS Q1H [facility] Stop: 01/12/20 09:44 Last Admin: 01/12/20 07:23 Dose: 100 mls/hr Documented by: Labetalol HCl (Trandate) 20 mg IV X1 PRN PRN Reason: BLOOD PRESSURE MANAGEMENT Levothyroxine Sodium (Synthroid) 75 mcg PO DAILY@0600 [facility] Last Admin: 01/12/20 06:26 Dose: Not Given Documented by: Methylprednisolone (Solu-Medrol) 125 mg IV X1 PRN PRN Reason: Allergic Reaction Stop: 01/13/20 14:44 Nicotine (Nicoderm Cq (Pbkc)) 21 mg TRANSDERM. DAILY [facility] Last Admin: 01/11/20 16:09 Dose: 21 mg Documented by: Pantoprazole Sodium (Protonix) 40 mg PO DAILY [facility] Quetiapine Fumarate (Seroquel) 300 mg PO QHS [facility] Last Admin: 01/11/20 21:24 Dose: Not Given Documented by: Sodium Chloride () 10 - 40 ml IV UD PRN PRN Reason: SALINE FLUSH STROKE Vital Signs/Narrative: Vital Signs Temp Pulse Resp BP Pulse Ox 01/12/20 07:55 97.8 F 82 13 156/80 H 92 01/12/20 05:55 97.8 F 77 10 L 151/87 H 97 01/12/20 04:57 97.7 F L 78 17 159/96 H 97 Medical Necessity - Tobacco Use Smoking Status: Current every day smoker Tobacco Use: Cigarettes Assessment/Plan All Active Problems (Last Updated 01/11/20 @ 13:[address] Jacy Moreno, DO) Ischemic stroke (Acute) Chronic diarrhea (Resolved) History of illicit drug use (Resolved) Iron deficiency anemia (Resolved) Global Aphasia with Suspected Ischemic Stroke -Initial NIH 4--> repeat 5--> and now a 1 -tPA given in ED at about 12 -CTA with B 70% carotid stenosis -hold on vascular consult with Metastatic lung cancer -CT head to r/o post tPA bleeding -MRI in am -hold on ECHO--> had one done on 11/2019--> EF was 65% with stage 2 diastolic dysfunction -NIH per protocols -failed bedside swallow--> FLEET OPERATIONS MANAGER to see today -PT/OT -no arrhythmia noted on tele -no ASA or SQ DVT prophylaxis until 24 hrs out of tPA and MRI done -consult tele stroke in am after MRI done -tox + for methadone and THC -ok to d/c bed rest after 12 pm NSCLC with L Pancost Tumor/COPD/Tobacco Abuse -Nicotine patch -documented as metastatic disease -follows with Dr. Harper -getting chemo but pt not sure when he gets chemo -prn nebs -MRI in am Hypokalemia -replace and recheck in am -am mag level DM-2 -A1c was 4.7 on 11/24/2019 -monitor on BMP and if elevated add SSI HTN/HPL -start home lisinopril 10 mg -hold home meds and use PRN only for now -Statin Lipitor 80 mg once passes swallow eval Macrocytic Anemia -B12 and Folate done in October and WNL -likely related to EtOH abuse -Fe Studies unremarkable Hypothyroidism -continue synthroid Vitamin D Deficiency -Ergocalciferol weekly -hold for now Breen's Esophagus -PPI H/O EtOH Abuse -will check tox and EtOH level -monitor for s/o withdrawal -avoid sedation for now 2/2 stroke BPH -restart flomax Depression -continue Seroquel and SSRI DVT prophylaxis -SCD until 24 hrs s/p tPA then Lovenox Code Status -Full Dispo -Transfer to PCU later today if CT head neg for bleeding Inpatient E&M: 04377 Subs Hosp L3
[2020-01-12] MEDS: 0.9% Normal Saline 1,000 ML 100 ML IV (09:59)
[2020-01-12] MEDS: Levothyroxine 75 MCG Tablet PO (10:00)
[2020-01-12] MEDS: Citalopram 40 MG TABLET PO (10:00)
[2020-01-12] MEDS: Lisinopril 10 MG Tablet PO (10:00)
[2020-01-12] MEDS: Pantoprazole Sodium 40 MG Tablet PO (10:00)
--- NOTE | 2020-01-12 11:55 | CASEMGMT ---
DANG VALENTIN PIE BOTTOMER CM to room to meet with patient for initial transition planning/care coordination assessment. DANG VALENTIN introduced self and role at [facility]. Pt voices understanding and consents to assessment at this time. Pt sitting up in recliner chair in no distress at this time. Pt is A/O at this time and answers all questions appropriately. Care providers, pharmacy, and demographics verified/updated at this time. PCP: Dr Medina Specialists: Dr Kuo--head of precision targeting Preferred Pharmacy: [facility] Insurance: [employer] [facility] Prescription Benefit: Yes Living Will/HPOA: Has both LW and Healthcare POA, who is his daughter, Margarette. Copies of both found on e-file @ [facility]. LNOK: Daughter, Margarette Living Arrangements: Daughter, Margarette, and son-in-law live with him in 2-story apt. Has hillside to walk up and 1 step to enter. Has about 14 steps w/in the house. Pt is independent w/ADL's. Daughter does household mgmt tasks: cleaning, meals, laundry. Daughter goes w/him to doctor appts when she is able. Transportation: Pt states he hasn't driven much recently. His son-in-law provides most transportation. DME: States has the following DME: cane, clucometer. Has a walker available, but does not use. Pt states no need for further DME at this time. HHC/SNF: No history of SNF. Has had [facility] HHC in the past. Denies need for HHC. States may be interested in OP therapy but he is not certain. Pt made aware he can be given a script and take to any OP therapy location of his choice if he decides he wants to go. Pt states may have some difficulty with his son-in-law being available for all his appts. Pt made aware of [facility] Van transportation services to [employer] and provided with their info/contact number. Pt wishes to return home and states has no concerns with going home at time of discharge. CM to follow for any further discharge planning/needs. Pt voices no further concerns/needs at this time. Advised pt to ask for CM if any further questions/concerns/needs arise. Voices understanding. PLAN: Home w/possible OP therapy. Rufina CHAPMAN RN, CM
--- NOTE | 2020-01-12 12:32 | CASEMGMT ---
SW spoke w/pt briefly after ICU rounds. Pt not able to answer most questions, so it is not appropriate at this time to do PHQ-9. Pt confirms lives alone, confirms has aide services three times per week. Pt cannot tell SW what the aides assist with however. Pt also not able to tell this SW where he gets his medications. Pt could not remember questions just after asked. SW explained will check back with him again to see what pt may need at discharge. SW will follow up w/family regarding pt. SARAI Banegas
--- NOTE | 2020-01-12 13:17 | NURSING ---
PT SQUEEZED CALL DORA POSTAL WORKEROSKAR ABLE TO GO IN MRI ROOM AND LET PT KNOW HE ONLY HAS A FEW MORE MINUTES OF HIS SCAN, PT AGREES.
--- NOTE | 2020-01-12 13:17 | CASEMGMT ---
Social Work Spoke with brother, DANNI, to discuss pt's discharge plans. Brother lives in [place] and would like to ensure pt is safe to return home alone. Pt does have aides 2hrs/day M-T-F., 7 meals/wk. Left message with Yoselyn Henderson C.M. to notify her of pt's admission, possible DC plans to contact brother for further assistance. Therapy to evaluate pt on this date or the following date. If pt can withstand 3 hrs of therapy, pt could be eligible for RU. Emailed brother list of in network SNFs to choose a few for referrals, if pt is not safe to return home alone with the aide services. Brother to notify SW of decision. SW to continue to follow. DELMIS CastorenaW
--- NOTE | 2020-01-12 13:18 | NURSING ---
PT SQUEEZED CALL BALL, REQUESTS TO BE DONE WITH MRI. BRUSH FINISHEROSKAR STATES IT IS OK TO BE DONE WITH THE SCAN.
[2020-01-12] MEDS: Aspirin 81 MG TAB.CHEW PO (15:22)
[2020-01-12] MEDS: Tamsulosin HCl 0.4 MG Capsule PO (17:33)
[2020-01-12] MEDS: QUEtiapine 100 MG Tablet 300 MG PO (22:18)
[2020-01-12] MEDS: Atorvastatin Calcium 80 MG Tablet PO (22:18)
[2020-01-13] VITALS (13 sets, daily range): BP systolic 86–121; BP diastolic 48–72; PULSE 78–98; RESP 16–18; TEMP 36.6–36.9; O2SAT 91–98; BMI 21.4
[2020-01-13] MEDS: 0.9% Normal Saline 1,000 ML 100 ML IV ×2 (01:15→09:32)
[2020-01-13] MEDS: Levothyroxine 75 MCG Tablet PO (05:23)
[2020-01-13 06:42] LABS: Absolute Lymphocyte Count 0.62 X10^3/uL (0.83-4.51); Absolute Neutrophil Count 4.7 X10^3/uL (2.0-7.7); Basophil# 0.01 X10^3/uL; Basophil% 0.2 % (0-1); Eosinophils% 1.7 % (0-5); Hematocrit 27.9 % (40-54); Hemoglobin 8.8 g/dL (13.0-16.5); Lymphocyte # 0.62 X10^3/ul (4.0); Lymphocyte % 10.5 % (19-41); Mean Corp Hgb Conc 31.5 g/dL (32-36); Mean Corpuscular Hgb 34.5 pg (27.0-32.0); Mean Corpuscular Volume 109.4 fL (80-94); Mean Platelet Vol. 10.8 fl (6.2-12.0); Monocyte% 8.4 % (0-10); NRBC Flagged by Analyzer 0 % (0-5); Neutrophil # 4.67 X10^3/uL (2.7-7.7); Neutrophil % 78.7 % (47-70); POSITIVE MORPHOLOGY YES; Platelet Count 152 K/mm3 (150-450); RBC Distribution Width CV 18.9 % (11.6-14.6); RBC Distribution Width SD 76.9 fl (35.1-43.9); Red Blood Count 2.55 M/mm3 (4.6-6.2); White Blood Count 5.9 K/mm3 (4.4-11.0)
[2020-01-13 06:45] LABS: Differential Indicated SCAN CRITERIA MET
--- NOTE | 2020-01-13 07:15 | PCM.PN.INT ---
Subjective: Patient transferred out of the intensive care unit yesterday. Patient with no complaints this morning. Patient has not reported any chest pain, but does have generalized body aches. Patient tolerating room air. Patient is not reporting any bloody bowel movement, epistaxis or hematuria General: Alert, Oriented x3, Cooperative, No apparent distress, - - No conversational dyspnea. Does appear older than stated age. HEENT: Atraumatic, PERRLA, EOMI, Normocephalic Oral: Moist Mucosa, No Gingival or Mucosal Lesions/ Ulcerations Neck: Supple, No JVD, No Nodes, Trachea Midline Lungs: No rhonchi, No wheeze, No rales, Diminished, - - Symmetric expansion. Cardiovascular: Regular rate, Regular Rhythm, Normal S1, Normal S2, No murmurs, No rub noted, No Gallop Abdomen: Bowel Sounds Present, Soft, Non Tender, Non-Distended Extremities: No clubbing, No cyanosis, No edema Skin: No rashes, No breakdown Musculoskeletal: No Tenderness to Palpation of Joints or Extremities Lymphatic: No Cervical, Supraclavicular, or Inguinal Adenopathy Neurological: Cranial nerves II-XII grossly intact, Neuro grossly intact, Motor Exam 5/5 strength throughout, - - Unable to recognize a facial droop today Psych/Mental Status: Alert and oriented to time, place, person, mood and affect Vital Signs Temp Pulse Resp BP Pulse Ox 36.7 C 78 16 96/55 L 96 01/13/20 04:00 01/13/20 06:50 01/13/20 04:00 01/13/20 04:00 01/13/20 04:00 Oxygen Flow Rate (L/min) 2 Oxygen Delivery Method Room Air Weight: 63.5 kg Body Mass Index (BMI) 21.4 Finger Stick Blood Glucose 144 Intake and Output for Last 24 Hours 01/11/20 01/12/20 01/13/20 23:59 23:59 23:59 Intake Total 1140.6 / 1140.6 3255.67 / 3455.67 320 / 320 Output Total 325 / 325 1150 / 1150 Balance 815.6 / 815.6 2105.67 / 2305.67 320 / 320 Labs (Last 48 Hours) 01/11/20 01/11/20 01/11/20 11:33 11:35 11:35 WBC 9.7 RBC 3.53 L Hgb 12.1 L Hct 37.7 L MCV 106.8 H MCH 34.3 H MCHC 32.1 RDW Std Deviation 77.3 H RDW Coeff of Sophie 19.6 H Plt Count 229 MPV 10.6 Immature Gran % (Auto) 0.400 Neut % (Auto) 84.7 H Lymph % (Auto) 6.4 L [place] % (Auto) 7.6 Eos % (Auto) 0.7 Baso % (Auto) 0.2 Absolute Neuts (auto) 8.2 H Absolute Lymphs (auto) 0.62 L Nucleated RBC % 0 Differential Comment Anisocytosis 2+ Microcytosis 1+ Macrocytosis 1+ PT 12.1 INR 0.9 APTT 24.3 Sodium Potassium Chloride Carbon Dioxide Anion Gap BUN Creatinine Estim Creat Clear Calc Est GFR (MDRD) Af Amer Est GFR (MDRD) Non-Af BUN/Creatinine Ratio Glucose Calcium Phosphorus Magnesium Total Bilirubin AST ALT Alkaline Phosphatase Troponin I Total Protein Albumin Globulin Albumin/Globulin Ratio Triglycerides Cholesterol LDL Cholesterol VLDL Cholesterol HDL Cholesterol TSH Urine Opiates Screen Urine Methadone Screen Ur Barbiturates Screen Ur Phencyclidine Scrn Ur Amphetamines Screen U Methamphetamin-MDMA U Benzodiazepines Scrn Urine Cocaine Screen U Cannabinoids Screen Ur Drug Screen Comment Ethyl Alcohol 3.0 POC Glucose 01/11/20 01/11/20 01/11/20 11:35 17:30 18:07 WBC RBC Hgb Hct MCV MCH MCHC RDW Std Deviation RDW Coeff of Sophie Plt Count MPV Immature Gran % (Auto) Neut % (Auto) Lymph % (Auto) [place] % (Auto) Eos % (Auto) Baso % (Auto) Absolute Neuts (auto) Absolute Lymphs (auto) Nucleated RBC % Differential Comment Anisocytosis Microcytosis Macrocytosis PT INR APTT Sodium 141 Potassium 4.1 Chloride 99 Carbon Dioxide 34.0 H Anion Gap 8 BUN 14 Creatinine 1.17 Estim Creat Clear Calc 62.12 Est GFR (MDRD) Af Amer 83 Est GFR (MDRD) Non-Af 68 BUN/Creatinine Ratio 12.0 Glucose 132 H Calcium 9.2 Phosphorus Magnesium Total Bilirubin AST ALT Alkaline Phosphatase Troponin I < 0.015 Total Protein Albumin Globulin Albumin/Globulin Ratio Triglycerides Cholesterol LDL Cholesterol VLDL Cholesterol HDL Cholesterol TSH Urine Opiates Screen NEGATIVE Urine Methadone Screen POSITIVE H Ur Barbiturates Screen NEGATIVE Ur Phencyclidine Scrn NEGATIVE Ur Amphetamines Screen NEGATIVE U Methamphetamin-MDMA NEGATIVE U Benzodiazepines Scrn NEGATIVE Urine Cocaine Screen NEGATIVE U Cannabinoids Screen POSITIVE H Ur Drug Screen Comment Ethyl Alcohol POC Glucose 104 01/12/20 01/12/20 01/12/20 03:00 03:00 03:00 WBC 6.6 RBC 2.92 L Hgb 10.1 L Hct 32.0 L MCV 109.6 H MCH 34.6 H MCHC 31.6 L RDW Std Deviation 77.9 H RDW Coeff of Sophie 19.4 H Plt Count 183 MPV 10.3 Immature Gran % (Auto) 0.500 Neut % (Auto) 81.9 H Lymph % (Auto) 8.9 L [place] % (Auto) 7.3 Eos % (Auto) 1.2 Baso % (Auto) 0.2 Absolute Neuts (auto) 5.4 Absolute Lymphs (auto) 0.59 L Nucleated RBC % 0 Differential Comment SCANNED Anisocytosis Microcytosis Macrocytosis 3+ PT INR APTT Sodium 143 Potassium 3.3 L Chloride 104 Carbon Dioxide 34.0 H Anion Gap 5 BUN 14 Creatinine 0.94 Estim Creat Clear Calc 75.21 Est GFR (MDRD) Af Amer 106 Est GFR (MDRD) Non-Af 88 BUN/Creatinine Ratio 14.8 Glucose 84 Calcium 8.2 L Phosphorus 3.2 Magnesium 1.5 L Total Bilirubin 0.50 AST 12 L ALT 12 L Alkaline Phosphatase 77 Troponin I Total Protein 6.9 Albumin 2.8 L Globulin 4.1 Albumin/Globulin Ratio 0.7 L Triglycerides 213 H Cholesterol 203 H LDL Cholesterol 111 VLDL Cholesterol 43 H HDL Cholesterol 49 TSH 1.82 Urine Opiates Screen Urine Methadone Screen Ur Barbiturates Screen Ur Phencyclidine Scrn Ur Amphetamines Screen U Methamphetamin-MDMA U Benzodiazepines Scrn Urine Cocaine Screen U Cannabinoids Screen Ur Drug Screen Comment Ethyl Alcohol POC Glucose 01/13/20 01/13/20 05:55 05:55 WBC 5.9 RBC 2.55 L Hgb 8.8 L Hct 27.9 L MCV 109.4 H MCH 34.5 H MCHC 31.5 L RDW Std Deviation 76.9 H RDW Coeff of Sophie 18.9 H Plt Count 152 MPV 10.8 Immature Gran % (Auto) 0.500 Neut % (Auto) 78.7 H Lymph % (Auto) 10.5 L [place] % (Auto) 8.4 Eos % (Auto) 1.7 Baso % (Auto) 0.2 Absolute Neuts (auto) 4.7 Absolute Lymphs (auto) 0.62 L Nucleated RBC % 0 Differential Comment Anisocytosis Microcytosis Macrocytosis PT INR APTT Sodium Pending Potassium Pending Chloride Pending Carbon Dioxide Pending Anion Gap Pending BUN Pending Creatinine Pending Estim Creat Clear Calc Est GFR (MDRD) Af Amer Pending Est GFR (MDRD) Non-Af Pending BUN/Creatinine Ratio Pending Glucose Pending Calcium Pending Phosphorus Magnesium Pending Total Bilirubin AST ALT Alkaline Phosphatase Troponin I Total Protein Albumin Globulin Albumin/Globulin Ratio Triglycerides Cholesterol LDL Cholesterol VLDL Cholesterol HDL Cholesterol TSH Urine Opiates Screen Urine Methadone Screen Ur Barbiturates Screen Ur Phencyclidine Scrn Ur Amphetamines Screen U Methamphetamin-MDMA U Benzodiazepines Scrn Urine Cocaine Screen U Cannabinoids Screen Ur Drug Screen Comment Ethyl Alcohol POC Glucose Clinical Impression(s) from Imaging Studies Brain MRI 01/12/20 05:55 IMPRESSION: Involutional changes of the brain, as described above. No acute infarct. Electronically Signed: Glenroy Rainey MD at 13:31 EDT Tel , Service support , Medical Necessity - Tobacco Use Smoking Status: Current every day smoker Tobacco Use: Cigarettes Assessment/Plan All Active Problems (Last Updated 01/11/20 @ 13:[address] Jacy Moreno, ) Ischemic stroke (Acute) Chronic diarrhea (Resolved) History of illicit drug use (Resolved) Iron deficiency anemia (Resolved) RECOMMENDATIONS: 1. May need outpatient evaluation for carotid stenosis 2. Okay to discontinue supplemental oxygen 3. Await PT/OT/ST recommendations 4. Hemodynamically stable on room air. Will sign off from a critical care perspective IMPRESSIONS: 1. Suspected acute ischemic stroke status post TPA Patient with excellent response to TPA therapy. MRI is showing no acute infarct, likely secondary to rapid resolution with TPA. Patient does have bilateral carotid stenosis that may need to be addressed as an outpatient. This is complicated by patient's comorbid conditions. 2. Non-small cell lung cancer with left Pancoast tumor/history of COPD/active tobacco abuse Follows with Dr. Harper. Patient is receiving chemotherapy as of last hospitalization. No obvious metastasis noted on CT scan of the head. Keep saturations greater than 94% per ischemic stroke recommendations. 3. Diabetes mellitus type 2/hypertension/hyperlipidemia/macrocytic anemia/Breen esophagus/history of alcohol abuse/BPH/depression Complicates care, management, recovery and prognosis. Patient did have alcohol in his system on presentation. We will have to watch for signs and symptoms of withdrawal. No withdrawal symptomatology noted on my evaluation. Inpatient E&M: 46595 Subs Hosp L2
[2020-01-13 07:43] LABS: Anisocytosis 1+
[2020-01-13] MEDS: Aspirin 81 MG TAB.CHEW PO (08:12)
[2020-01-13 08:27] LABS: Anion Gap 7 (5-15); BUN 14 mg/dL (7-18); BUN/Creat Ratio 16.2 RATIO (10-20); Calcium,Total 7.7 mg/dL (8.5-10.1); Chloride 106 mmol/L (98-107); Creatinine, Serum 0.86 mg/dL (0.70-1.30); EST Glomerular Filtration Rate 97 mL/min (>60); Est Glom Filt Rate - Afr Amer 117 mL/min (>60); Estimated Creatinine Clearance 86.14 ml/min; Glucose 82 mg/dL (74-106); Magnesium 1.8 mg/dL (1.6-2.6); Potassium 3.1 mmol/L (3.5-5.1); Sodium Level 140 mmol/L (136-145)
[2020-01-13] MEDS: Citalopram 40 MG TABLET PO (09:21)
[2020-01-13] MEDS: Pantoprazole Sodium 40 MG Tablet PO (09:21)
[2020-01-13] MEDS: 0.9% Normal Saline 1,000 ML 999 ML IV (09:31)
--- NOTE | 2020-01-13 10:50 | PN_ITS ---
Patient Problems: Active and Suspected Problems (Last Updated 01/11/20 @ 13:[address] Jacy Moreno DO) Ischemic stroke (Acute) Subjective: States that he is feeling much better. Has not been seen by therapies yet. Was not taking his lisinopril at home. Was told by Masci to get vasculature looked at as well. Vitals/I&O's: Vital Signs Temp Pulse Resp BP Pulse Ox 97.9 F 98 18 86/48 L 95 01/13/20 08:00 01/13/20 08:00 01/13/20 08:00 01/13/20 09:24 01/13/20 08:00 Oxygen Flow Rate (L/min) 2 Oxygen Delivery Method Room Air Weight: 63.5 kg Body Mass Index (BMI) 21.4 Finger Stick Blood Glucose 144 Intake and Output for Last 24 Hours 01/11/20 01/12/20 01/13/20 23:59 23:59 23:59 Intake Total 1140.6 / 1140.6 3255.67 / 3455.67 2148.33 / 2148.33 Output Total 325 / 325 1150 / 1150 Balance 815.6 / 815.6 2105.67 / 2305.67 2148.33 / 2148.33 General: Alert, Oriented x3, Cooperative, No apparent distress, Well developed, - - Thin WM sitting up in bed watching TV, appears well and comfortable HEENT: Atraumatic, PERRLA, EOMI, Normocephalic, EAC Clear Oral: Moist Mucosa, No Gingival or Mucosal Lesions/ Ulcerations, - - dentures in place Neck: Supple, No JVD, Negative Carotid Bruits Lungs: Clear to auscultation, No rhonchi, No wheeze, No rales, Diminished Cardiovascular: Regular rate, Regular Rhythm, Normal S1, Normal S2, No murmurs, No Ectopic Activity, No rub noted, No Gallop Abdomen: Bowel Sounds Present, Soft, Non Tender, Non-Distended, No hernias noted Extremities: No clubbing, No cyanosis, No edema, Capillary Refill Less than 3 Seconds, Diminished Peripheral Pulses Skin: No rashes, No breakdown Musculoskeletal: No Tenderness to Palpation of Joints or Extremities, No Muscle Wasting, Arthritic Changes Lymphatic: No Cervical, Supraclavicular, or Inguinal Adenopathy Neurological: Cranial nerves II-XII grossly intact, Deep Tendon Reflexes 2+/4 and Symmetrical, Neuro grossly intact, Muscle tone normal, Sensory exam intact to light touch and pain, Coordination normal Psych/Mental Status: Normal Affect, Appropriate, Alert and oriented to time, place, person, mood and affect Laboratory Results 01/13/20 05:55: WBC 5.9, RBC 2.55 L, Hgb 8.8 L, Hct 27.9 L, MCV 109.4 H, MCH 34.5 H, MCHC 31.5 L, RDW Std Deviation 76.9 H, RDW Coeff of Sophie 18.9 H, Plt C ount 152, MPV 10.8, Immature Gran % (Auto) 0.500, Neut % (Auto) 78.7 H, Lymph % (Auto) 10.5 L, Collier % (Auto) 8.4, Eos % (Auto) 1.7, Baso % (Auto) 0.2, Absolute Neuts (auto) 4.7, Absolute Lymphs (auto) 0.62 L, Nucleated RBC % 0, Anisocytosis 1+ 01/13/20 05:55: Sodium 140, Potassium 3.1 L, Chloride 106, Carbon Dioxide 27.0, Anion Gap 7, BUN 14, Creatinine 0.86, Estim Creat Clear Calc 86.14, Est GFR (MDRD) Af Amer 117, Est GFR (MDRD) Non-Af 97, BUN/Creatinine Ratio 16.2, Glucose 82, Calcium 7.7 L, Magnesium 1.8 Current Medications Acetaminophen (Tylenol) 650 mg PO Q4H PRN PRN PRN Reason: Headache/Temp>99.6F Acetaminophen (Tylenol Liquid) 650 mg NG Q4H PRN PRN PRN Reason: Headache/Temp>99F Aspirin (Aspirin, Baby) 81 mg PO DAILY@0800 [facility] Last Admin: 01/13/20 08:12 Dose: 81 mg Documented by: Atorvastatin Calcium (Lipitor) 80 mg PO QHS [facility] Last Admin: 01/12/20 22:18 Dose: 80 mg Documented by: Citalopram Hydrobromide (Celexa) 40 mg PO DAILY [facility] Last Admin: 01/13/20 09:21 Dose: 40 mg Documented by: Dextrose (D50w Syringe) 0 gm IV X1 PRN; Protocol PRN Reason: Hypoglycemia Diphenhydramine HCl (Benadryl) 50 mg IV X1 PRN PRN Reason: Allergic Reaction Stop: 01/13/20 14:44 Enoxaparin Sodium (Lovenox) 40 mg SC DAILY@1230 [facility] Epinephrine HCl () 0.3 mg IM X1 PRN PRN Reason: Allergic Reaction Stop: 01/13/20 14:44 Glucagon () 1 mg IM .X1 PRN PRN Reason: Hypoglycemia Haloperidol Lactate (Haldol) 3 mg IV Q6H PRN PRN PRN Reason: AGITATION Famotidine 20 mg/ Sodium (Chloride) 10 mls @ 300 mls/hr IV X1 PRN PRN Reason: Allergic Reaction Stop: 01/13/20 14:44 Sodium Chloride () 1,000 mls @ 100 mls/hr IV .Q10H [facility] Last Admin: 01/13/20 09:32 Dose: 100 mls/hr Documented by: Levothyroxine Sodium (Synthroid) 75 mcg PO DAILY@0600 [facility] Last Admin: 01/13/20 05:23 Dose: 75 mcg Documented by: Methylprednisolone (Solu-Medrol) 125 mg IV X1 PRN PRN Reason: Allergic Reaction Stop: 01/13/20 14:44 Nicotine (Nicoderm Cq (Pbkc)) 21 mg TRANSDERM. DAILY [facility] Last Admin: 01/13/20 09:21 Dose: 21 mg Documented by: Pantoprazole Sodium (Protonix) 40 mg PO DAILY [facility] Last Admin: 01/13/20 09:21 Dose: 40 mg Documented by: Potassium Chloride (K-Dur) 40 meq PO BIDCM [facility] Stop: 01/14/20 17:01 Quetiapine Fumarate (Seroquel) 300 mg PO QHS [facility] Last Admin: 01/12/20 22:18 Dose: 300 mg Documented by: Sodium Chloride () 10 - 40 ml IV UD PRN PRN Reason: SALINE FLUSH Tamsulosin HCl (Flomax) 0.4 mg PO DAILY@1730 [facility] Last Admin: 01/12/20 17:33 Dose: 0.4 mg Documented by: STROKE Vital Signs/Narrative: Vital Signs Temp Pulse Resp BP BP Pulse Ox 01/13/20 09:24 86/48 L 01/13/20 08:00 97.9 F 98 18 107/65 95 01/13/20 07:35 91 Medical Necessity - Tobacco Use Smoking Status: Current every day smoker Tobacco Use: Cigarettes Assessment/Plan All Active Problems (Last Updated 01/11/20 @ 13:[address] Jacy Moreno, DO) Ischemic stroke (Acute) Chronic diarrhea (Resolved) History of illicit drug use (Resolved) Iron deficiency anemia (Resolved) Global Aphasia -resolved -Initial NIH 4--> repeat 5--> and now a 1 -Neuro suspects this is not a stroke -tPA given in ED at about 12 -CTA with B 70% carotid stenosis -hold on vascular consult with Metastatic lung cancer -MRI negative -ECHO had one done on 11/2019--> EF was 65% with stage 2 diastolic dysfunction -NIH per protocols -passed for reg thin with constant supervision -PT/OT -no arrhythmia noted on tele -continue ASA and statin -consult tele stroke in am after MRI done -tox + for methadone and THC--> takes methadone at home -EEG per Neuro consult -suspect ESR will be elevated with cancer--> hold on ordering -BGT have been stable with 82 fasting this am and A1c 4.7 on 11/23 B ICA Stenosis -will have pt f/u with vascular at d/c ([place]) -70% B Hypokalemia -40 mEq PO now -Mg WNL Hypotension -hold lisinopril -IVF -Bolus -trend NSCLC with L Pancost Tumor/COPD/Tobacco Abuse -Nicotine patch -documented as metastatic disease -follows with Dr. Harper -states that he thinks his last chemo was about a month -prn nebs -no mets on MRI DM-2 -A1c was 4.7 on 11/24/2019 HTN/HPL -hold antihypertensive -Statin Lipitor 80 mg Macrocytic Anemia -B12 and Folate done in October and WNL -likely related to EtOH abuse -Fe Studies unremarkable Hypothyroidism -continue Synthroid Vitamin D Deficiency -Ergocalciferol weekly -hold for now Breen's Esophagus -PPI H/O EtOH Abuse -will check tox and EtOH level -monitor for s/o withdrawal -avoid sedation for now 2/2 stroke BPH -restart flomax Depression -continue Seroquel and SSRI DVT prophylaxis -SCD until 24 hrs s/p tPA then Lovenox Code Status -Full Dispo -? Rehab at d/c--> awaiting therapy evaluations Inpatient E&M: 63073 Subs Hosp L3
[2020-01-13] MEDS: Enoxaparin 40 MG/0.4 ML Syringe SC (11:12)
[2020-01-13] MEDS: Tamsulosin HCl 0.4 MG Capsule PO (16:32)
[2020-01-13] MEDS: QUEtiapine 100 MG Tablet 300 MG PO (21:18)
[2020-01-13] MEDS: Atorvastatin Calcium 80 MG Tablet PO (21:19)
[2020-01-13] MEDS: 0.9% Saline Lock 10 ML Syringe IV (21:19)
[2020-01-14] VITALS (10 sets, daily range): BP systolic 100–132; BP diastolic 60–80; PULSE 86–140; RESP 16–18; TEMP 36.7–37.7; O2SAT 93–100; BMI 21.4
[2020-01-14] MEDS: Levothyroxine 75 MCG Tablet PO (05:21)
[2020-01-14 06:45] LABS: Absolute Lymphocyte Count 0.54 X10^3/uL (0.83-4.51); Absolute Neutrophil Count 4.4 X10^3/uL (2.0-7.7); Basophil# 0.01 X10^3/uL; Basophil% 0.2 % (0-1); Eosinophils% 1.8 % (0-5); Hematocrit 27.3 % (40-54); Hemoglobin 8.5 g/dL (13.0-16.5); Lymphocyte # 0.54 X10^3/ul (4.0); Lymphocyte % 9.7 % (19-41); Mean Corp Hgb Conc 31.1 g/dL (32-36); Mean Corpuscular Hgb 34.3 pg (27.0-32.0); Mean Corpuscular Volume 110.1 fL (80-94); Mean Platelet Vol. 11.4 fl (6.2-12.0); Monocyte# 0.54 X10^3/uL; Monocyte% 9.7 % (0-10); NRBC Flagged by Analyzer 0 % (0-5); Neutrophil # 4.37 X10^3/uL (2.7-7.7); Neutrophil % 78.1 % (47-70); POSITIVE DIFFERENTIAL YES; POSITIVE MORPHOLOGY YES; Platelet Count 147 K/mm3 (150-450); RBC Distribution Width CV 18.6 % (11.6-14.6); RBC Distribution Width SD 76.7 fl (35.1-43.9); Red Blood Count 2.48 M/mm3 (4.6-6.2); White Blood Count 5.6 K/mm3 (4.4-11.0)
[2020-01-14 07:08] LABS: Differential Indicated SCAN CRITERIA MET
[2020-01-14 07:09] LABS: Anisocytosis 2+
[2020-01-14 07:10] LABS: Anion Gap 5 (5-15); BUN 11 mg/dL (7-18); Calcium,Total 8.2 mg/dL (8.5-10.1); Chloride 109 mmol/L (98-107); Creatinine, Serum 0.92 mg/dL (0.70-1.30); EST Glomerular Filtration Rate 90 mL/min (>60); Est Glom Filt Rate - Afr Amer 109 mL/min (>60); Estimated Creatinine Clearance 80.65 ml/min; Glucose 76 mg/dL (74-106); Magnesium 1.4 mg/dL (1.6-2.6); Potassium 3.4 mmol/L (3.5-5.1); Sodium Level 140 mmol/L (136-145)
[2020-01-14] MEDS: Aspirin 81 MG TAB.CHEW PO (07:53)
[2020-01-14] MEDS: Citalopram 40 MG TABLET PO (09:11)
[2020-01-14] MEDS: Pantoprazole Sodium 40 MG Tablet PO (09:11)
--- NOTE | 2020-01-14 09:59 | PN_ITS ---
Patient Problems: Active and Suspected Problems (Last Updated 01/11/20 @ 13:[address] Jacy Moreno, DO) Ischemic stroke (Acute) Subjective: Pt states that he is feeling well. No issues overnight. BP is better. Vitals/I&O's: Vital Signs Temp Pulse Resp BP Pulse Ox 98.7 F 97 16 115/65 100 01/14/20 09:10 01/14/20 09:10 01/14/20 09:10 01/14/20 09:10 01/14/20 09:10 Oxygen Flow Rate (L/min) 2 Oxygen Delivery Method Room Air Weight: 63.6 kg Body Mass Index (BMI) 21.4 Finger Stick Blood Glucose 144 Intake and Output for Last 24 Hours 01/12/20 01/13/20 01/14/20 23:59 23:59 23:59 Intake Total 3255.67 / 3455.67 3565.00 / 3565.00 60 / 60 Output Total 1150 / 1150 Balance 2105.67 / 2305.67 3565.00 / 3565.00 60 / 60 General: Alert, Oriented x3, Cooperative, No apparent distress, Well developed, Well nourished HEENT: Atraumatic, PERRLA, EOMI, Normocephalic, EAC Clear Oral: Moist Mucosa, No Gingival or Mucosal Lesions/ Ulcerations, - - dentures in place Neck: Supple, No JVD, Trachea Midline, Thyroid Normal Size and Texture Lungs: Clear to auscultation, No rhonchi, No wheeze, No rales, Diminished Cardiovascular: Regular rate, Regular Rhythm, Normal S1, Normal S2, No murmurs, No Ectopic Activity, No rub noted, No Gallop Abdomen: Bowel Sounds Present, Soft, Non Tender, Non-Distended, No Hepato- splenomegaly, No hernias noted Extremities: No clubbing, No edema, Capillary Refill Less than 3 Seconds, Peripheral Pulses Normal Skin: No rashes, No breakdown Musculoskeletal: No Tenderness to Palpation of Joints or Extremities, No Muscle Wasting, Arthritic Changes Lymphatic: No Cervical, Supraclavicular, or Inguinal Adenopathy Neurological: Cranial nerves II-XII grossly intact, Neuro grossly intact, Muscle tone normal, Coordination normal Psych/Mental Status: Normal Affect, Appropriate, Alert and oriented to time, place, person, mood and affect Laboratory Results 01/14/20 05:30: WBC 5.6, RBC 2.48 L, Hgb 8.5 L, Hct 27.3 L, MCV 110.1 H, MCH 34.3 H, MCHC 31.1 L, RDW Std Deviation 76.7 H, RDW Coeff of Sophie 18.6 H, Plt Count 147 L, MPV 11.4, Immature Gran % (Auto) 0.500, Neut % (Auto) 78.1 H, Lymph % (Auto) 9.7 L, Nicollet % (Auto) 9.7, Eos % (Auto) 1.8, Baso % (Auto) 0.2, Absolute Neuts (auto) 4.4, Absolute Lymphs (auto) 0.54 L, Nucleated RBC % 0, Anisocytosis 2+ 01/14/20 05:30: Sodium 140, Potassium 3.4 L, Chloride 109 H, Carbon Dioxide 26.0, Anion Gap 5, BUN 11, Creatinine 0.92, Estim Creat Clear Calc 80.65, Est GFR (MDRD) Af Amer 109, Est GFR (MDRD) Non-Af 90, BUN/Creatinine Ratio 12.0, Glucose 76, Calcium 8.2 L, Magnesium 1.4 L Current Medications Acetaminophen (Tylenol) 650 mg PO Q4H PRN PRN PRN Reason: Headache/Temp>99.6F Acetaminophen (Tylenol Liquid) 650 mg NG Q4H PRN PRN PRN Reason: Headache/Temp>99F Aspirin (Aspirin, Baby) 81 mg PO DAILY@0800 [facility] Last Admin: 01/14/20 07:53 Dose: 81 mg Documented by: Atorvastatin Calcium (Lipitor) 80 mg PO QHS [facility] Last Admin: 01/13/20 21:19 Dose: 80 mg Documented by: Citalopram Hydrobromide (Celexa) 40 mg PO DAILY [facility] Last Admin: 01/14/20 09:11 Dose: 40 mg Documented by: Dextrose (D50w Syringe) 0 gm IV X1 PRN; Protocol PRN Reason: Hypoglycemia Enoxaparin Sodium (Lovenox) 40 mg SC DAILY@1230 [facility] Last Admin: 01/13/20 11:12 Dose: 40 mg Documented by: Glucagon () 1 mg IM .X1 PRN PRN Reason: Hypoglycemia Haloperidol Lactate (Haldol) 3 mg IV Q6H PRN PRN PRN Reason: AGITATION Levothyroxine Sodium (Synthroid) 75 mcg PO DAILY@0600 [facility] Last Admin: 01/14/20 05:21 Dose: 75 mcg Documented by: Nicotine (Nicoderm Cq (Pbkc)) 21 mg TRANSDERM. DAILY [facility] Last Admin: 01/14/20 09:11 Dose: 21 mg Documented by: Pantoprazole Sodium (Protonix) 40 mg PO DAILY [facility] Last Admin: 01/14/20 09:11 Dose: 40 mg Documented by: Potassium Chloride (K-Dur) 40 meq PO BIDCM [facility] Stop: 01/14/20 17:01 Last Admin: 01/14/20 07:53 Dose: 40 meq Documented by: Quetiapine Fumarate (Seroquel) 300 mg PO QHS [facility] Last Admin: 01/13/20 21:18 Dose: 300 mg Documented by: Sodium Chloride () 10 - 40 ml IV UD PRN PRN Reason: SALINE FLUSH Last Admin: 01/13/20 21:19 Dose: 10 ml Documented by: Tamsulosin HCl (Flomax) 0.4 mg PO DAILY@1730 [facility] Last Admin: 01/13/20 16:32 Dose: 0.4 mg Documented by: STROKE Vital Signs/Narrative: Vital Signs Temp Pulse Resp BP Pulse Ox 01/14/20 09:10 98.7 F 97 16 115/65 100 01/14/20 07:20 93 01/14/20 06:44 86 Medical Necessity - Tobacco Use Smoking Status: Current every day smoker Tobacco Use: Cigarettes Assessment/Plan All Active Problems (Last Updated 01/11/20 @ 13:[address] Jacy Moreno, DO) Ischemic stroke (Acute) Chronic diarrhea (Resolved) History of illicit drug use (Resolved) Iron deficiency anemia (Resolved) Global Aphasia -resolved -Initial NIH 4--> repeat 5--> and now a 1 -Neuro suspects this is not a stroke -tPA given in ED at about 12 -MRI negative -ECHO had one done on 11/2019--> EF was 65% with stage 2 diastolic dysfunction -passed for reg thin with constant supervision -PT/OT -no arrhythmia noted on tele -continue ASA and statin -tox + for methadone and THC--> takes methadone at home -EEG per Neuro consult-->pending -suspect ESR will be elevated with cancer--> hold on ordering -BGT have been stable with 82 fasting this am and A1c 4.7 on 11/23 B ICA Stenosis -will have pt f/u with vascular at d/c ([place]) -70% B Hypokalemia -40 mEq PO again today -repeat in am Hypomagnesemia -4 gm mg IV -Mg level in am Hypotension -resolved NSCLC with L Pancost Tumor/COPD/Tobacco Abuse -Nicotine patch -documented as metastatic disease -follows with Dr. Harper -states that he thinks his last chemo was about a month -prn nebs -no mets on MRI DM-2 -A1c was 4.7 on 11/24/2019 HTN/HPL -hold antihypertensive as pressure has been fine without medications -Statin Lipitor 80 mg Macrocytic Anemia -B12 and Folate done in October and WNL -likely related to EtOH abuse -Fe Studies unremarkable Mild Thrombocytopenia -monitor -cbc in am Hypothyroidism -continue Synthroid Vitamin D Deficiency -Ergocalciferol weekly -hold for now Breen's Esophagus -PPI H/O EtOH Abuse -will check tox and EtOH level -monitor for s/o withdrawal -avoid sedation for now 2/2 stroke BPH -flomax Depression -continue Seroquel and SSRI DVT prophylaxis -SCD until 24 hrs s/p tPA then Lovenox Code Status -Full Dispo -SNF at d/c--> awaiting decision from family regarding placement SUMMARY 54 year old M who was brought to the ED by the squad after a friend noted a change in MS. His last known well time was 2 hrs prior to presentation. The EMS found him to be aphasic and a prehospital stroke team was initiated. His initial NIH was 4 and repeat was 5. CT of the head was negative for bleeding and CTA showed no cutoffs but did demonstrate B ICA stenosis at 70%. [facility] stroke consultation requested that tPA be given. Sx returned to baseline on the following day. Per Neuro consult doubt stroke but continue ASA and statin. Recommended ESR (will be elevated with cancer dx) and therefore not obtained, A1c was done in November and was WNL and EEG which is pending. Methadone on tox but pt has prescription for this. Now back to baseline. B ICA stenosis at 70%--> needs referred to vascular after d/c. Has Lung Ca-follows with Dr. Harper. Not safe to go home and plan is for SNF. Awaiting decision from brother. D/C after precert obtained. Electrolye replacement with BMP and Mag for 01/14. Mild thrombocytopenia--CBC in am. Inpatient E&M: 51874 Subs Hosp L3
[2020-01-14] MEDS: 0.9% Saline Lock 10 ML Syringe IV (11:20)
[2020-01-14] MEDS: Enoxaparin 40 MG/0.4 ML Syringe SC (11:20)
[2020-01-14] MEDS: Magnesium Sulfate 4gm/100mL 4 GM/100 ML IV.SOLN. IV (11:20)
[2020-01-14] MEDS: Tamsulosin HCl 0.4 MG Capsule PO (15:53)
[2020-01-14] MEDS: Atorvastatin Calcium 80 MG Tablet PO (22:09)
[2020-01-14] MEDS: QUEtiapine 100 MG Tablet 300 MG PO (22:10)
[2020-01-15 03:05] VITALS: PULSE 98
[2020-01-15 04:10] VITALS: BP 104/60; PULSE 94; RESP 16; TEMP 37.7; O2SAT 96
[2020-01-15] MEDS: Levothyroxine 75 MCG Tablet PO (04:19)
[2020-01-15 06:40] LABS: Absolute Lymphocyte Count 0.53 X10^3/uL (0.83-4.51); Absolute Neutrophil Count 4.5 X10^3/uL (2.0-7.7); Basophil# 0.01 X10^3/uL; Basophil% 0.2 % (0-1); Eosinophil# 0.16 X10^3/uL; Eosinophils% 2.8 % (0-5); Hematocrit 29.6 % (40-54); Hemoglobin 9.3 g/dL (13.0-16.5); Lymphocyte # 0.53 X10^3/ul (4.0); Lymphocyte % 9.3 % (19-41); Mean Corp Hgb Conc 31.4 g/dL (32-36); Mean Corpuscular Hgb 34.3 pg (27.0-32.0); Mean Corpuscular Volume 109.2 fL (80-94); Mean Platelet Vol. 10.3 fl (6.2-12.0); Monocyte# 0.47 X10^3/uL; Monocyte% 8.2 % (0-10); NRBC Flagged by Analyzer 0 % (0-5); Neutrophil # 4.53 X10^3/uL (2.7-7.7); Neutrophil % 79.2 % (47-70); POSITIVE DIFFERENTIAL YES; POSITIVE MORPHOLOGY YES; Platelet Count 148 K/mm3 (150-450); RBC Distribution Width CV 18.4 % (11.6-14.6); RBC Distribution Width SD 73.7 fl (35.1-43.9); Red Blood Count 2.71 M/mm3 (4.6-6.2); White Blood Count 5.7 K/mm3 (4.4-11.0)
[2020-01-15 06:44] LABS: Differential Indicated SCAN CRITERIA MET
[2020-01-15 07:03] LABS: Anion Gap 6 (5-15); BUN 14 mg/dL (7-18); BUN/Creat Ratio 12.4 RATIO (10-20); Calcium,Total 8.8 mg/dL (8.5-10.1); Chloride 105 mmol/L (98-107); Creatinine, Serum 1.13 mg/dL (0.70-1.30); EST Glomerular Filtration Rate 71 mL/min (>60); Est Glom Filt Rate - Afr Amer 86 mL/min (>60); Estimated Creatinine Clearance 65.46 ml/min; Glucose 96 mg/dL (74-106); Potassium 3.9 mmol/L (3.5-5.1); Sodium Level 138 mmol/L (136-145)
[2020-01-15 07:06] VITALS: O2SAT 95
[2020-01-15 07:09] VITALS: PULSE 102
[2020-01-15 07:14] LABS: Differential Comment SCANNED; Hypochromasia RARE; Microcytosis RARE; Polychromasia RARE
[2020-01-15] MEDS: Pantoprazole Sodium 40 MG Tablet PO (08:31)
[2020-01-15] MEDS: Citalopram 40 MG TABLET PO (08:31)
[2020-01-15] MEDS: Aspirin 81 MG TAB.CHEW PO (08:33)
--- NOTE | 2020-01-15 09:54 | DCINST_ITS ---
- Discharge Diagnoses Current Active Problems: Current Active and Chronic Problems (Last Updated 01/11/20 @ 13:[address] Jacy Moreno DO) Ischemic stroke (Acute) You will use the following diet at home:: Calorie/Carbohydrate Controlled (specify 1200, 1400, etc) - 1800/day, Cardiac Your food should be the consistency of: Regular Your liquids should be the consistency of: Regular/Thin Discharge Activity: Return to Normal Activity Allergies/Adverse Reactions: Allergies No Known Allergies Allergy (Verified 11/23/19 15:42) Medications to take at Discharge Citalopram [Celexa] 40 mg PO DAILY 12/15/16 Folic Acid 1 mg PO DAILY 08/25/19 Levothyroxine [Synthroid] 75 mcg PO DAILY 10/09/19 Omeprazole 40 mg PO DAILY 10/09/19 Calcium Carbonate [Tums] 500 mg PO BIDCM #60 tab 10/30/19 Magnesium Chloride [Slow-Mag] 71.5 mg PO Q8H #90 tablet. 10/30/19 Quetiapine Fumarate [Seroquel] 300 mg PO QHS #30 tab 10/30/19 Tamsulosin HCl [Flomax] 0.4 mg PO DAILY@1730 #30 cap 10/30/19 Ergocalciferol [Vitamin D] 50,000 unit PO QWEEK 11/23/19 Chlorpromazine HCl 10 mg PO QHS 01/11/20 Ferrous Sulfate 325 mg PO DAILY 01/11/20 Linagliptin [Tradjenta] 5 mg PO DAILY 01/11/20 Potassium Chloride [Klor-Con M20] 20 meq PO DAILY 01/11/20 Primary Care Physician: Zurdo Esparza MD [Primary Care Provider] - Please follow up with your Primary Care Physician in: 1 week Test Results: Test results from this visit will be discussed in further detail at your follow- up appointment, if applicable. Proposed Discharge Date: 01/15/20
--- NOTE | 2020-01-15 10:06 | CASEMGMT ---
Addendum entered by Brittni Villavicencio 01/15/20 13:13: Per Ana at [facility], they are not able to take pt at this time. This RN CM to room to update pt and HHC list provided. Pt states no preference at this time and referral faxed to [facility] at this time and per Guadalupe, they will take pt at this time. Per Abby FERGUSON, pt's brother would like contacted by this RN CM at this time. Pt aware but does not want brother contacted by this RN CM at this time. Pt states 'I will call him once I am home and let him know what's going on.' Dawna RN updated at this time as pt's brother then called to [facility] main desk asking to speak with pt's RN as pt is not answering room phone, Dawna voices understanding. Pt to be picked up by [facility] at 1500 for transport home. Pt voices no further questions/concerns/needs at this time. Esau LEONG CM Original Note: Therapy is recommending [facility] for pt at this time and this RN CM to room to discuss with pt at this time. Pt is A/OX4 at this time and answers all questions appropriately. Pt is agreeable to [facility] and states would like [facility] at this time. Per [facility], they did have trouble getting ahold of pt last time and pt states 'It just didn't work out last time but this is time is different.' Referral to Debra at [facility] at this time and she states 'We will discuss it' and then will get back with this RN CM. Order placed for SN, PT/OT at this time. Pt states that he will need to get a ride home, possibly through provide a ride and [facility] patient care secretary to check on [facility] transport for pt as well. Pt voices no further questions/concerns/needs at this time. Esau LEONG CM
--- NOTE | 2020-01-15 10:11 | CASEMGMT ---
SW completed a PHQ 9 with patient as he may have had a TIA or Stroke. He scored a 0 which indicates no depression. Vera DEAL MSW
--- NOTE | 2020-01-15 10:18 | PHA.DC.MR ---
Pharmacy Service has performed discharge medication reconciliation for this patient. No new medications at time of discharge. Medications reviewed are from previously reported home medications. The patient's discharge medication list was reviewed for discrepancies and discrepancies were resolved. Home Medications Citalopram [Celexa] 40 mg PO DAILY 12/15/16 Folic Acid 1 mg PO DAILY 08/25/19 Levothyroxine [Synthroid] 75 mcg PO DAILY 10/09/19 Omeprazole 40 mg PO DAILY 10/09/19 Calcium Carbonate [Tums] 500 mg PO BIDCM #60 tab 10/30/19 Magnesium Chloride [Slow-Mag] 71.5 mg PO Q8H #90 tablet. 10/30/19 Quetiapine Fumarate [Seroquel] 300 mg PO QHS #30 tab 10/30/19 Tamsulosin HCl [Flomax] 0.4 mg PO DAILY@1730 #30 cap 10/30/19 Ergocalciferol [Vitamin D] 50,000 unit PO QWEEK 11/23/19 Chlorpromazine HCl 10 mg PO QHS 01/11/20 Ferrous Sulfate 325 mg PO DAILY 01/11/20 Linagliptin [Tradjenta] 5 mg PO DAILY 01/11/20 Potassium Chloride [Klor-Con M20] 20 meq PO DAILY 01/11/20
--- NOTE | 2020-01-15 11:21 | CASEMGMT ---
MARTY received a call from Yoselyn Henderson from [facility]. MARTY let her know patient will be discharged today with home health possibly through [facility] if they accept him. MARTY let her know [facility] will transport him home around 3p today. She thanked MARTY for the update. MARTY also faxed discharge instructions to Yoselyn at [facility]. Vera DEAL MSW
[2020-01-15 11:36] VITALS: PULSE 106
[2020-01-15 12:00] VITALS: BP 115/77; PULSE 116; RESP 15; TEMP 36.6; O2SAT 100
--- NOTE | 2020-01-15 13:45 | DS.PCM_ITS ---
<Garfield Lackey - Last Filed: 01/15/20 13:45> Discharge Date and Diagnosis - Problem List Patient Problems: Active and Suspected Problems (Last Updated 01/11/20 @ 13:[address] Jacy Moreno DO) Ischemic stroke (Acute) Date of Admission: 01/11/20 Date of Discharge: 01/15/20 - Primary Discharge Diagnosis Acute Problems: Active Problems (Last Updated 01/11/20 @ 13:[address] Jacy Moreno DO) Stroke ruled out TIA Vs Toxic encephalopathy 2/2 multiple sedating home meds BL ICA stenosis NSCLC with pancoast tumor hx alcohol and tobacco abuse, marijuana abuse - Secondary Discharge Diagnosis Chronic Problems: Chronic Problems (Last Updated 01/11/20 @ 13:[address] 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 Steven Shrestha Vitamin D deficiency (Chronic) Adenocarcinoma of left lung (Chronic) with a metastatic lesion in the RUL Alcohol abuse (Chronic) Barretts esophagus (Chronic) Chronic hepatitis C (Chronic) Cannabis use, uncomplicated (Chronic) admits to 1 joint a day Major depression with psychotic features (Chronic) Hospital Course and Treatment Imaging Results: CT/Brain/Head without Contrast IMPRESSION: Chronic involutional changes of the brain. ADDENDUM by Dr. Baljinder Olivo MD on 01/11/[address]/CTA Head AND Neck W/ Contrast IMPRESSION: Greater than 70% stenosis of both internal carotid arteries at their origins due to calcific plaque. RAD/Chest 1 View IMPRESSION: Stable soft tissue mass in the left leg apex with retraction of the left hilum. MRI/Brain without Contrast IMPRESSION: Involutional changes of the brain, as described above. No acute infarct. Consults: Neuro - SOC Crit Care - Nicho Operations: None Procedures: Electroencephalogram Summary of Care Provided: Hospital Course: The patient is a 54 year old M with pmhx as above who presented to the ER with global aphasia about 2 hours prior to presentation. In the ER CT was negative, CTA showed 70% bilateral ICA stenosis. He was given tPA per [facility]. He had slight improvement in his symptoms at time off admission. EKG showed STachy, and he had elevated bicarb at 34. EtOH was negative, tox screen showed methadone and THC. He was admitted for stroke. MRI was obtained and did not show stroke. He had no events on tele. EEG was obtained which was negative for seizure. Neuro was consulted and recommended to continue aspirin and statin, and felt this episode was either due to TIA or due to toxic encephalopathy from his home meds. This included: methadone, marijuana, lyrica, and seroquel. His mentation resolved however he had ongoing generalized weakness. SNF was recommended. He declined and he was discharged home in stable condition with [facility] services. He was successfully taken off of sedating medications while here and should remain off of them. He will continue aspirin and statin. He will need follow up with his PCP in 1-2 weeks and vascular in 2-4 weeks regarding his BL ICA stenosis. He will continue previous cancer care as per his oncology team. This patient was seen by Garfield Lackey PA-C under the supervision of Dr. Tony [] Patient Problems: Active and Suspected Problems (Last Updated 01/11/20 @ 13:[address] Jacy Moreno DO) Ischemic stroke (Acute) - Physical Exam Vitals/I&O's: Vital Signs Temp Pulse Resp BP Pulse Ox 98 F 116 H 15 115/77 100 01/15/20 12:00 01/15/20 12:00 01/15/20 12:01/15/20 12:01/15/20 12:00 Oxygen Flow Rate (L/min) 2 Oxygen Delivery Method Room Air Weight: 139 lb 12.369 oz Body Mass Index (BMI) 21.4 Finger Stick Blood Glucose 144 Intake and Output for Last 24 Hours 01/13/20 01/14/20 01/15/20 23:59 23:59 23:59 Intake Total 3565.00 / 3565.00 1300 / 1300 700 / 700 Balance 3565.00 / 3565.00 1300 / 1300 700 / 700 General: Alert, Oriented x3, Cooperative HEENT: Atraumatic, PERRLA, EOMI, Normocephalic Neck: Supple, No JVD, Negative Carotid Bruits Lungs: Clear to auscultation, Normal air movement Cardiovascular: Regular rate, No murmurs Abdomen: Bowel Sounds Present, Soft, Non Tender Extremities: No edema, Capillary Refill Less than 3 Seconds Skin: No rashes, No breakdown Musculoskeletal: No Tenderness to Palpation of Joints or Extremities Neurological: Cranial nerves II-XII grossly intact Psych/Mental Status: Normal Affect, Appropriate Laboratory Results 01/15/20 06:00: Sodium 138, Potassium 3.9, Chloride 105, Carbon Dioxide 27.0, Anion Gap 6, BUN 14, Creatinine 1.13, Estim Creat Clear Calc 65.46, Est GFR (MDRD) Af Amer 86, Est GFR (MDRD) Non-Af 71, BUN/Creatinine Ratio 12.4, Glucose 96, Calcium 8.8, Magnesium 2.0 01/15/20 06:00: WBC 5.7, RBC 2.71 L, Hgb 9.3 L, Hct 29.6 L, MCV 109.2 H, MCH 34.3 H, MCHC 31.4 L, RDW Std Deviation 73.7 H, RDW Coeff of Sophie 18.4 H, Plt Count 148 L, MPV 10.3, Immature Gran % (Auto) 0.300, Neut % (Auto) 79.2 H, Lymph % (Auto) 9.3 L, Richardson % (Auto) 8.2, Eos % (Auto) 2.8, Baso % (Auto) 0.2, Absolute Neuts (auto) 4.5, Absolute Lymphs (auto) 0.53 L, Nucleated RBC % 0, Differential Comment SCANNED, Polychromasia RARE, Hypochromasia RARE, Microcytosis RARE Current Medications Acetaminophen (Tylenol) 650 mg PO Q4H PRN PRN PRN Reason: Headache/Temp>99.6F Acetaminophen (Tylenol Liquid) 650 mg NG Q4H PRN PRN PRN Reason: Headache/Temp>99F Aspirin (Aspirin, Baby) 81 mg PO DAILY@0800 NANDA Last Admin: 01/15/20 08:33 Dose: 81 mg Documented by: Atorvastatin Calcium (Lipitor) 80 mg PO QHS [facility] Last Admin: 01/14/20 22:09 Dose: 80 mg Documented by: Citalopram Hydrobromide (Celexa) 40 mg PO DAILY [facility] Last Admin: 01/15/20 08:31 Dose: 40 mg Documented by: Dextrose (D50w Syringe) 0 gm IV X1 PRN; Protocol PRN Reason: Hypoglycemia Enoxaparin Sodium (Lovenox) 40 mg SC DAILY@1230 [facility] Last Admin: 01/15/20 12:50 Dose: Not Given Documented by: Glucagon () 1 mg IM .X1 PRN PRN Reason: Hypoglycemia Haloperidol Lactate (Haldol) 3 mg IV Q6H PRN PRN PRN Reason: AGITATION Levothyroxine Sodium (Synthroid) 75 mcg PO DAILY@0600 [facility] Last Admin: 01/15/20 04:19 Dose: 75 mcg Documented by: Nicotine (Nicoderm Cq (Pbkc)) 21 mg TRANSDERM. DAILY [facility] Last Admin: 01/15/20 08:33 Dose: 21 mg Documented by: Pantoprazole Sodium (Protonix) 40 mg PO DAILY [facility] Last Admin: 01/15/20 08:31 Dose: 40 mg Documented by: Quetiapine Fumarate (Seroquel) 300 mg PO QHS [facility] Last Admin: 01/14/20 22:10 Dose: 300 mg Documented by: Sodium Chloride () 10 - 40 ml IV UD PRN PRN Reason: SALINE FLUSH Last Admin: 01/14/20 11:20 Dose: 10 ml Documented by: Tamsulosin HCl (Flomax) 0.4 mg PO DAILY@1730 [facility] Last Admin: 01/14/20 15:53 Dose: 0.4 mg Documented by: Discharge Diet: Low fat/ Low Cholesterol, 1800 Calorie Control Diet, 2000 mg Sodium Diet Discharge Activity: Return to Normal Activity Home Medications: Medications to take at Discharge Citalopram [Celexa] 40 mg PO DAILY 12/15/16 Folic Acid 1 mg PO DAILY 08/25/19 Levothyroxine [Synthroid] 75 mcg PO DAILY 10/09/19 Omeprazole 40 mg PO DAILY 10/09/19 Calcium Carbonate [Tums] 500 mg PO BIDCM #60 tab 10/30/19 Magnesium Chloride [Slow-Mag] 71.5 mg PO Q8H #90 tablet.dr 10/30/19 Quetiapine Fumarate [Seroquel] 300 mg PO QHS #30 tab 10/30/19 Tamsulosin HCl [Flomax] 0.4 mg PO DAILY@1730 #30 cap 10/30/19 Ergocalciferol [Vitamin D] 50,000 unit PO QWEEK 11/23/19 Chlorpromazine HCl 10 mg PO QHS 01/11/20 Ferrous Sulfate 325 mg PO DAILY 01/11/20 Linagliptin [Tradjenta] 5 mg PO DAILY 01/11/20 Potassium Chloride [Klor-Con M20] 20 meq PO DAILY 01/11/20 Aspirin [Aspirin, Baby] 81 mg PO DAILY@0800 #1 tab.chew 01/15/20 Atorvastatin Calcium 40 mg PO DAILY #30 tab 01/15/20 Following Prescrptions Were Given to Patient: Aspirin [Aspirin, Baby] 81 mg PO DAILY@0800 #1 tab.chew Atorvastatin Calcium 40 mg PO DAILY #30 tab Primary Care Physician: Zurdo Esparza MD [Primary Care Provider] - Please follow up with your Primary Care Physician in: 1 week Please Follow Up With: Zurdo Esparza MD Please Follow Up With: Roger Barboza MD When: 2-4 weeks Disposition: Home with Home Health Minutes spent on discharge:: 35 Patient Condition:: Stable Medical Necessity - Tobacco Use Smoking Status: Current every day smoker Tobacco Use: Cigarettes Meaningful Use Info Meaningful Use Diagnoses (Choose all that apply): None applicable <Jabier Tony - Last Filed: 01/15/20 14:16> Discharge Date and Diagnosis - Primary Discharge Diagnosis Acute Problems: Active Problems (Last Updated 01/11/20 @ 13:[address] Jacy Moreno DO) Ischemic stroke (Acute) - Secondary Discharge Diagnosis Chronic Problems: Chronic Problems (Last Updated 01/11/20 @ 13:[address] 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 I have indep endently interviewed and examined the patient and reviewed pertinent historical, laboratory, and other data. Please refer to Garfield Lackey PA-C note for details of this patient's presentation, findings, and recommendations. I have reviewed Garfield Lackey PA-C note and concur with documented findings. In brief, patient is a 54-year-old gentleman history of lung CA who presented with global aphasia admitted to monitored bed for further management Hospital course as documented above - Physical Exam Vitals/I&O's: Vital Signs Temp Pulse Resp BP Pulse Ox 98 F 116 H 15 115/77 100 01/15/20 12:00 01/15/20 12:00 01/15/20 12:00 01/15/20 12:00 01/15/20 12:00 Oxygen Flow Rate (L/min) 2 Oxygen Delivery Method Room Air Weight: 63.4 kg Body Mass Index (BMI) 21.4 Finger Stick Blood Glucose 144 Intake and Output for Last 24 Hours 01/13/20 01/14/20 01/15/20 23:59 23:59 23:59 Intake Total 3565.00 / 3565.00 1300 / 1300 700 / 700 Balance 3565.00 / 3565.00 1300 / 1300 700 / 700 Laboratory Results 01/15/20 06:00: Sodium 138, Potassium 3.9, Chloride 105, Carbon Dioxide 27.0, Anion Gap 6, BUN 14, Creatinine 1.13, Estim Creat Clear Calc 65.46, Est GFR (MDRD) Af Amer 86, Est GFR (MDRD) Non-Af 71, BUN/Creatinine Ratio 12.4, Glucose 96, Calcium 8.8, Magnesium 2.0 01/15/20 06:00: WBC 5.7, RBC 2.71 L, Hgb 9.3 L, Hct 29.6 L, MCV 109.2 H, MCH 34.3 H, MCHC 31.4 L, RDW Std Deviation 73.7 H, RDW Coeff of Sophie 18.4 H, Plt Count 148 L, MPV 10.3, Immature Gran % (Auto) 0.300, Neut % (Auto) 79.2 H, Lymph % (Auto) 9.3 L, Richardson % (Auto) 8.2, Eos % (Auto) 2.8, Baso % (Auto) 0.2, Absolute Neuts (auto) 4.5, Absolute Lymphs (auto) 0.53 L, Nucleated RBC % 0, Differential Comment SCANNED, Polychromasia RARE, Hypochromasia RARE, Microcytosis RARE Current Medications Acetaminophen (Tylenol) 650 mg PO Q4H PRN PRN PRN Reason: Headache/Temp>99.6F Acetaminophen (Tylenol Liquid) 650 mg NG Q4H PRN PRN PRN Reason: Headache/Temp>99F Aspirin (Aspirin, Baby) 81 mg PO DAILY@0800 [facility] Last Admin: 01/15/20 08:33 Dose: 81 mg Documented by: Atorvastatin Calcium (Lipitor) 80 mg PO QHS [facility] Last Admin: 01/14/20 22:09 Dose: 80 mg Documented by: Citalopram Hydrobromide (Celexa) 40 mg PO DAILY [facility] Last Admin: 01/15/20 08:31 Dose: 40 mg Documented by: Dextrose (D50w Syringe) 0 gm IV X1 PRN; Protocol PRN Reason: Hypoglycemia Enoxaparin Sodium (Lovenox) 40 mg SC DAILY@1230 [facility] Last Admin: 01/15/20 12:50 Dose: Not Given Documented by: Glucagon () 1 mg IM .X1 PRN PRN Reason: Hypoglycemia Haloperidol Lactate (Haldol) 3 mg IV Q6H PRN PRN PRN Reason: AGITATION Levothyroxine Sodium (Synthroid) 75 mcg PO DAILY@0600 [facility] Last Admin: 01/15/20 04:19 Dose: 75 mcg Documented by: Nicotine (Nicoderm Cq (Pbkc)) 21 mg TRANSDERM. DAILY [facility] Last Admin: 07/13/20 08:33 Dose: 21 mg Documented by: Pantoprazole Sodium (Protonix) 40 mg PO DAILY [facility] Last Admin: 01/15/20 08:31 Dose: 40 mg Documented by: Quetiapine Fumarate (Seroquel) 300 mg PO QHS [facility] Last Admin: 01/14/20 22:10 Dose: 300 mg Documented by: Sodium Chloride () 10 - 40 ml IV UD PRN PRN Reason: SALINE FLUSH Last Admin: 01/14/20 11:20 Dose: 10 ml Documented by: Tamsulosin HCl (Flomax) 0.4 mg PO DAILY@1730 [facility] Last Admin: 01/14/20 15:53 Dose: 0.4 mg Documented by: Inpatient E&M: [id number] Disch Hosp
--- NOTE | 2020-01-15 14:29 | NURSING ---
spoke with brother bozena gave update per patient request
--- NOTE | 2020-01-16 16:06 | CASEMGMT ---
DANG VALENTIN Discharge F/U Phone Call LACE: 14 Strata: 4 Discharge date: 01/15/2020 Call date: 01/16/2020 Call time: [id number] Admission dx: Stroke Pt states has been 'doing alright' since discharge. Pt states no questions regarding discharge instructions/medications at this time. Pt states has f/u appts scheduled and plans to keep. Pt states no suggestions for [facility] at this time and states 'Everyone was really nice.' Pt states [facility] did start of care today. Pt voices no further questions/concerns/needs at this time. SStaten DANG VALENTIN
== END 2020-01-15 14:48 | disposition home or self-care (01) | DRG 92 ==
LOC: ED 12:15 → ICU 12:41 → PCU 01-15 07:25 → ICU 01-16 13:10 → PCU 01-16 13:11
PROVIDERS: Admitting Provider Internal Medicine; Emergency Provider Emergency Medicine; PCP Internal Medicine; Visit Provider Internal Medicine
DX: G92 Toxic encephalopathy (principal); G45.9 Transient cerebral ischemic attack, unspecified; C34.12 Malignant neoplasm of upper lobe, left bronchus or lung; F32.3 Major depressive disorder, single episode, severe with psychotic features; C78.01 Secondary malignant neoplasm of right lung; R47.01 Aphasia; E87.6 Hypokalemia; I10 Essential (primary) hypertension; E78.5 Hyperlipidemia, unspecified; F17.210 Nicotine dependence, cigarettes, uncomplicated; D53.9 Nutritional anemia, unspecified; J44.9 Chronic obstructive pulmonary disease, unspecified; Z79.899 Other long term (current) drug therapy; E03.9 Hypothyroidism, unspecified; K22.70 Barrett's esophagus without dysplasia; N40.0 Benign prostatic hyperplasia without lower urinary tract symptoms; E11.42 Type 2 diabetes mellitus with diabetic polyneuropathy; B18.2 Chronic viral hepatitis C; F10.10 Alcohol abuse, uncomplicated; F12.90 Cannabis use, unspecified, uncomplicated; D69.6 Thrombocytopenia, unspecified; E83.42 Hypomagnesemia; Z79.891 Long term (current) use of opiate analgesic; E83.51 Hypocalcemia; Z79.84 Long term (current) use of oral hypoglycemic drugs; T40.3X1A Poisoning by methadone, accidental (unintentional), initial encounter; T40.7X1A Poisoning by cannabis (derivatives), accidental (unintentional), initial encounter; T42.6X1A Poisoning by other antiepileptic and sedative-hypnotic drugs, accidental (unintentional), initial encounter; I65.23 Occlusion and stenosis of bilateral carotid arteries
CPT/HCPCS: 36415; 70450; 70496; 70498; 70551; 71045; 80048; 80053; 80061; 80307; 80320; 82962; 83735; 84100; 84443; 84484; 85025; 85610; 85730; 92507; 92523; 92526; 92610; 93005; 95819; 97116; 97162; 97166; 97530; 97802; 99285; 99406; J2997; J7030; Q9967; A4216; G0480

== ENCOUNTER → 2020-01-25 09:58 | Outpatient (CLI) | payer MEDICARE, MEDICAID, SELFPAY ==
[2020-01-14 23:55] VITALS: BMI 21.4
--- NOTE | 2020-01-25 09:59 | CDU_ITS ---
Reason For Study: carotid stenosis Rt. Velocities/BP Lt. Velocities/BP Prox CCA 83.9/16.0 cm/sec. Prox CCA 89.0/27.8 cm/sec. Mid CCA 78.6/14.7 cm/sec. Mid CCA 95.6/31.7 cm/sec. Dist CCA 69.5/20.0 cm/sec. Dist CCA 85.1/26.5 cm/sec. Prox ICA 61.7/18.6 cm/sec. Prox ICA 85.1/27.8 cm/sec. Mid ICA 64.3/17.3 cm/sec. Mid ICA 83.8/23.9 cm/sec. Dist ICA 86.5/33.0 cm/sec. Dist ICA 90.4/35.6 cm/sec. Rt. ICA/CCA = 1.1. Lt. ICA/CCA = .9. Prox ECA 100.8/10.8 cm/sec. Prox ECA 76.0/4.3 cm/sec. Rt. Vert. 56.5/18.6 cm/sec. Lt. Vert. 77.3/21.3 cm/sec. Right Extracranial There is intimal thickening but no significant atherosclerotic plaque noted in the right common carotid artery. There is heterogeneous, irregular atherosclerotic plaque noted in the right internal carotid artery. There is heterogeneous, irregular atherosclerotic plaque noted in the right external carotid artery. Antegrade flow is noted in the right vertebral artery. Left Extracranial There is homogeneous, smooth atherosclerotic plaque noted in the left common carotid artery. There is heterogeneous, irregular atherosclerotic plaque noted in the left internal carotid artery. There is heterogeneous, irregular atherosclerotic plaque noted in the left external carotid artery. Antegrade flow is noted in the left vertebral artery. Procedure Carotid Duplex [id number]. The exam was diagnostic. Exam performed in department. Interpretation Summary Irregular calcific plaque with shadowing right carotid bulb and proximal internal carotid artery with less than 50% stenosis of the internal carotid artery. <50% stenosis right external carotid Irregular calcific plaque with shadowing left proximal internal carotid artery with less than 50% stenosis. <50% stenosis left external carotid Patent, antegrade vertebrals bilaterally Ordering Physician: Roger Barboza Performed By: Mane Manriquez RVT
== END ==
PROVIDERS: PCP Internal Medicine; Referring Provider Surgery; Visit Provider Surgery
DX: I65.23 Occlusion and stenosis of bilateral carotid arteries (principal)
CPT/HCPCS: 93880

== ENCOUNTER 2020-08-14 13:39 | Emergency (ER) | payer MEDICARE, MEDICAID, SELFPAY ==
[2020-01-26 13:45] VITALS: BMI 21.4
[2020-08-14 13:40] VITALS: BP 121/71; PULSE 119; RESP 16; TEMP 36.3; O2SAT 100; BMI 22.8
--- NOTE | 2020-08-14 13:58 | ED.VIS.GEN ---
History of Present Illness Chief Complaint: Dizziness Informant: Patient Narrative: 55-year-old male presenting for evaluation because he states he woke up this morning was shortly confused about where he was sleeping. He states he got up and walked around and realized he is at his girlfriend's house. He states he feels a little bit more wobbly than usual however he is usually wobbly and uses a Rollator. Patient does have some mild shaking in his arms and legs but he states that his usual. Patient states that he does not have numbness and tingling in his arms and legs and he has not lost any use of his arms or legs since the symptom happened.Patient denies any chest pain or palpitations. Patient has not had a fever or chills. Patient states that he called EMS however EMS did not see a reason to transport him. Patient states that his girlfriend wanted him to get checked out so he called his primary care doctor who referred him to the emergency room. - Past Medical History (1) Carotid stenosis Status: Chronic (2) Hypertension Status: Chronic (3) Peripheral neuropathy Status: Chronic Comment: due to compression of the left brachial plexus by pancoast tumor left apes due to adenocarcinoma (4) Hypothyroidism Status: Chronic Past Medical History - Allergies and Home Meds Allergies/Adverse Reactions: Allergies No Known Allergies Allergy (Verified 08/14/20 13:43) Primary Care Physician: Zurdo Esparza MD [Primary Care Provider] - Prior records reviewed: Yes Past Medical History: - - Reviewed in problem list Surgical History: noncontributory Lives: Alone Smoking Status: Current every day smoker Alcohol: Sober Drugs: None - Family History Maternal Family History: Family History (Last Updated 01/26/20 @ 13:43 by Aileen Amador) Father Heart disease Family History: Reports: - - no lung cancer. He thinks his mother is bipolar Review of Systems General: Denies: Chills, Fever, Sweats Eyes: Denies: Visual changes - bilaterally, Diplopia ENT: Denies: Rhinorrhea, Sore throat Cardiovascular: Reports: - - Lightheadedness. Denies: Chest pain, Palpitations Respiratory: Denies: Dyspnea, Cough, Dyspnea on exertion Gastrointestinal: Denies: Abdominal pain, Nausea, Vomiting, Diarrhea, Melena, Hematochezia Genitourinary: Denies: Dysuria, Hematuria, Frequency Musculoskeletal: Denies: Back pain, Extremity Pain Skin: Denies: Rash, Wounds Neurological: Denies: Headache, Weakness, Numbness Psych: Denies: Depression, Anxiety Physical Exam Vital Signs/Narrative: Vital Signs Temp Pulse Resp BP Pulse Ox 08/14/20 13:40 97.3 F L 119 H 16 121/71 H 100 General: Well nourished, No Acute Distress Head: Normocephalic, Atraumatic Eyes: Perrl, EOMI ENT: Moist mucous membranes, Sinus tenderness Cardiovascular: Regular rate, Regular rhythm Respiratory: No distress, CTA bilaterally Extremities: Nontender, No edema Skin: Normal color, No rash. Negative for: Cyanosis, Diaphoresis Neurological: Alert, Oriented x3, Cranial nerves II-XII grossly intact Psychological: Normal affect, Normal Mood Diagnostic/Tx/Re-eval - Rhythm Strip Rhythm Strip: Sinus Rhythm Rate: 103 - EKG Initial EKG Interpretation: Sinus Rhythm, No Acute Injury Pattern - Medical Decision Making Patient presents for feeling wobbly although he states he is wobbly at baseline. He does walk with a Rollator at baseline. He is not describing vertiginous dizziness. Patient is no longer confused. His neurologic exam is completely normal. EKG performed on arrival shows a sinus rhythm with 103 bpm without signs of ischemic change as interpreted by myself. Chest x-ray is interpreted by myself shows no acute cardiopulmonary process. Radiology does agree. Patient has a slight leukocytosis without signs of infection. Renal function and electrolytes are normal. Patient did have orthostatic vital signs which were positive. He states that this is his baseline and he always has orthostatic hypotension mildly. He did not feel symptomatic when he stood for his orthostatic vitals. Patient will be given IV fluids and discharged home after they are finished. Impression: 1. Orthostatic hypotension ED Disposition - Plan for ED Patient: Disposition: Home or Assisted Living Instructions: ED Hypotension, Orthostatic Referrals: Zurdo Esparza MD [Primary Care Provider] -
--- NOTE | 2020-08-14 14:02 | EKG12_ITS ---
Test Reason : DIZZINESS Blood Pressure : / mmHG Vent. Rate : 103 BPM Atrial Rate : 103 BPM P-R Int : 160 ms QRS Dur : 082 ms QT Int : 374 ms P-R-T Axes : 026 082 070 degrees QTc Int : 489 ms Sinus tachycardia Septal infarct , age undetermined Abnormal ECG Confirmed by MIRIAN BINGHAM, TAMMI ([id number]), news videotape editor REED FLORES ([id number]) on 08/16/2020 8:43:58 AM Referred By: KAROLINA Confirmed By:ISA VELA MD
--- NOTE | 2020-08-14 14:02 | CT_ITS ---
STUDY: CT BRAIN WITHOUT CONTRAST REASON FOR EXAM: Male, 55 years old. Dizziness and confusion, hx CVA, hypertension, lung cancer with chemotherapy. RADIATION DOSAGE (If Supplied By Facility): CTDIvol = ( 44.99 ) mGy, DLP = ( 812.98 ) mGycm TECHNIQUE: Transaxial CT imaging of the brain was performed without administration of intravenous contrast material. Individualized dose optimization techniques were used for this CT. COMPARISON: Comparison is made with prior examination dated 01/11/2020. FINDINGS: Normal soft tissue structures. Normal calvarium. There is mild cerebral atrophy with widening of the extra-axial spaces and ventricular dilatation. There are areas of decreased attenuation within the white matter tracts of the supratentorial brain, consistent with microvascular disease changes. Normal basal ganglia and thalami. Normal brainstem. Normal cerebellum. There is no intracranial hemorrhage. There are no findings of an acute ischemic infarction. Normal visualized paranasal sinuses. CT/Brain/Head without Contrast IMPRESSION: Chronic involutional changes of the brain. Electronically Signed: Baljinder Olivo MD at 15:07 EST , Service support ,
[2020-08-14 14:29] LABS: Absolute Lymphocyte Count 0.82 X10^3/uL (0.83-4.51); Absolute Neutrophil Count 11.5 X10^3/uL (2.0-7.7); Basophil# 0.03 X10^3/uL; Basophil% 0.2 % (0-1); Eosinophil# 0.03 X10^3/uL; Eosinophils% 0.2 % (0-5); Hematocrit 40.5 % (40-54); Hemoglobin 13.5 g/dL (13.0-16.5); Lymphocyte # 0.82 X10^3/ul (4.0); Lymphocyte % 6.3 % (19-41); Mean Corp Hgb Conc 33.3 g/dL (32-36); Mean Corpuscular Hgb 29.7 pg (27.0-32.0); Mean Platelet Vol. 9.1 fl (6.2-12.0); Monocyte# 0.58 X10^3/uL; Monocyte% 4.4 % (0-10); NRBC Flagged by Analyzer 0 % (0-5); Neutrophil # 11.48 X10^3/uL (2.7-7.7); Neutrophil % 88.1 % (47-70); Platelet Count 417 K/mm3 (150-450); RBC Distribution Width CV 14.1 % (11.6-14.6); Red Blood Count 4.55 M/mm3 (4.6-6.2)
[2020-08-14 14:48] LABS: ALB/GLOB Ratio 0.6 RATIO (0.9-2.4); AST(SGOT) 13 U/L (15-37); Alanine Aminotransfer ALT/SGPT 10 U/L (16-61); Albumin, Serum 2.7 g/dL (3.2-5.0); Alkaline Phosphatase 112 U/L (45-117); Anion Gap 6 (5-15); BUN 18 mg/dL (7-18); BUN/Creat Ratio 14.8 RATIO (10-20); Calcium,Total 8.7 mg/dL (8.5-10.1); Chloride 98 mmol/L (98-107); Creatinine, Serum 1.22 mg/dL (0.70-1.30); EST Glomerular Filtration Rate 65 mL/min (>60); Est Glom Filt Rate - Afr Amer 79 mL/min (>60); Estimated Creatinine Clearance 60.28 ml/min; Globulin 4.5 g/dL (2.2-4.2); Glucose 100 mg/dL (74-106); Magnesium 1.6 mg/dL (1.6-2.6); Potassium 3.7 mmol/L (3.5-5.1); Protein, Total 7.2 g/dL (6.4-8.2); Sodium Level 133 mmol/L (136-145)
--- NOTE | 2020-08-14 14:51 | RAD_ITS ---
STUDY: X-RAY CHEST REASON FOR EXAM: Male, 55 years old. STATES HE WOKE UP THIS AM THINKING HE WAS AT HIS GIRLFRIEND''S HOUSE, REALIZED HE WAS AT HOME. FELT DIZZY. BG 118. HX OF CVA. EMS TO HOUSE, DID NOT TRANSPORT. PCP REFERRED TO ED. TECHNIQUE: Single AP portable view of the chest. COMPARISON: Comparison is made with prior examination dated 01/11/2020. FINDINGS: There is hyperinflation of the lungs consistent with chronic obstructive lung disease (COPD). Decreased bronchovascular markings in the upper lobes suggestive of emphysematous change. Stable soft tissue density in the left lung apex. There is retraction upwards of the left hilum. Normal size heart. Normal mediastinum and [place]. Normal visualized pulmonary arteries. Normal visualized aortic arch and descending thoracic aorta. There are diffuse degenerative changes of the visualized thoracic spine. Normal visualized ribs, clavicles, and shoulders. There is no demonstrated abnormality of the visualized soft tissue structures of the upper abdomen. RAD/Chest 1 View (Portable) IMPRESSION: Hyperinflation. Persistent soft tissue density in the left apex with retraction of the left hilum. Electronically Signed: Baljinder Olivo MD at 15:07 EST , Service support ,
[2020-08-14 15:25] VITALS: BP 132/78; PULSE 103; RESP 19; O2SAT 99
[2020-08-14 15:26] VITALS: BP 103/74; BP 118/78; BP 132/78; PULSE 103; PULSE 107; PULSE 108
[2020-08-14] MEDS: 0.9% Normal Saline 1,000 ML 999 ML IV (15:42)
--- NOTE | 2020-08-14 15:44 | ED.RN ---
Patient not able to void. Positive orthos reported to Dr Nguyễn. Patient aware we will try to get him to void again after the IVF are done.
[2020-08-14 16:38] VITALS: BP 142/90; PULSE 108; RESP 16; TEMP 36.9; O2SAT 98
--- NOTE | 2020-08-14 17:10 | ED.RN ---
Addendum entered by Yvrose Ayoub RN 08/14/20 17:14: The 90 min eta update is an error. Original Note: Patient told this nurse he talked to [facility] [employer] [place] who told patient they would be here between 5pm and 8pm. Then, someone else called and told Julia they could not come to get him. This nurse called to [employer] [place] but the voicemail is full and both attempts went to voicemail. Will follow up. Per Julia, they gave a new update of eta 90 minutes but patient requested his IV come out so he can be dressed and ready to go bob.
== END 2020-08-14 17:17 | disposition home or self-care (01) ==
PROVIDERS: Emergency Provider Student in an Organized Health Care Education/Training Program; PCP Internal Medicine
DX: I95.1 Orthostatic hypotension (principal); I10 Essential (primary) hypertension; E03.9 Hypothyroidism, unspecified; G62.9 Polyneuropathy, unspecified; I65.29 Occlusion and stenosis of unspecified carotid artery; Z79.82 Long term (current) use of aspirin; Z79.899 Other long term (current) drug therapy; F17.200 Nicotine dependence, unspecified, uncomplicated
CPT/HCPCS: 70450; 71045; 80053; 83735; 84484; 85025; 93005; 96360; 99284; J7030; A4216

== ENCOUNTER 2020-10-28 20:51 | Observation (INO) | payer MEDICARE, MEDICAID, SELFPAY ==
[2020-10-28 20:53] VITALS: BP 100/66; PULSE 92; RESP 17; TEMP 36.6; O2SAT 99; BMI 22.2
--- NOTE | 2020-10-28 21:59 | EKG12_ITS ---
Test Reason : DYSRHYTHMIA Blood Pressure : / mmHG Vent. Rate : 087 BPM Atrial Rate : 087 BPM P-R Int : 186 ms QRS Dur : 084 ms QT Int : 408 ms P-R-T Axes : 047 058 072 degrees QTc Int : 490 ms Normal sinus rhythm Septal infarct , age undetermined Abnormal ECG Confirmed by ARTUR BINGHAM, LELA ([id number]), telegraph editor REED FLORES ([id number]) on 10/31/2020 9:02:44 AM Referred By: JHON Confirmed By:LELA SIDDIQUI MD
--- NOTE | 2020-10-28 21:59 | CT_ITS ---
STUDY: CT BRAIN WITHOUT CONTRAST REASON FOR EXAM: Male, 55 years old. Falls. Weakness. RADIATION DOSAGE (If Supplied By Facility): CTDIvol = ( 44.99 ) mGy, DLP = ( 796.11 ) mGycm TECHNIQUE: Transaxial CT imaging of the brain was performed without administration of intravenous contrast material. Individualized dose optimization techniques were used for this CT. COMPARISON: 08/14/2020. FINDINGS: Normal soft tissue structures. Normal calvarium. Normal size ventricles and extra-axial spaces for the patient''s age. Normal white matter tracts of the cerebral hemispheres. Normal basal ganglia and thalami. Normal brainstem. Normal cerebellum. There is no intracranial hemorrhage. There are no findings of an acute ischemic infarction. Minimal persistent mucoperiosteal reaction in the maxillary sinuses. Mucoperiosteal reaction in the anterior ethmoid sinuses. CT/Brain/Head without Contrast IMPRESSION: 1. No evidence for acute intracranial calvarial abnormality. 2. Mild worsening of sinusitis with compared to prior study Electronically Signed: Saji Gaitan DO at 23:03 EDT Tel [phone], Service support ,
--- NOTE | 2020-10-28 22:00 | CT_ITS ---
STUDY: CT CERVICAL SPINE WITHOUT CONTRAST REASON FOR EXAM: Male, 55 years old. Pain. Falls. RADIATION DOSAGE (If Supplied By Facility): CTDIvol = ( 19.23 ) mGy, DLP = ( 442.99 ) mGycm TECHNIQUE: High resolution transaxial imaging was performed without contrast material. Sagittal and coronal images were reconstructed. Individualized dose optimization techniques were used for this CT. COMPARISON: CT of the cervical spine, 08/25/2019. FINDINGS: Normal craniovertebral junction. Normal anterior atlantoaxial articulation. Normal odontoid process. Normal cervical lordosis. There is nonfusion of the posterior arch of C1 which is a normal variant. Otherwise normal vertebral bodies and posterior osseous elements. C2-3: Normal endplates. Minimal loss of disc height. Mild facet joint degenerative change. Normal central canal and intervertebral neuroforamina. C3-4: Normal endplates. Mild loss of disc height. Facet and uncovertebral joint degenerative change. Normal central canal and intervertebral neuroforamina. C4-5: Endplate spondylosis. Loss of disc height. Facet and uncovertebral joint degenerative change. Normal central canal. Narrowing of the right intervertebral neuroforamen. C5-6: Endplate spondylosis. Loss of disc height. Facet and uncovertebral joint degenerative change. Analysis of central canal and narrowing of left intervertebral neuroforamen. C6-7: Normal endplates. Normal disc height and morphology. Facet joint degenerative change. Normal central canal and intervertebral neuroforamina. C7-T1: Normal endplates. Normal disc height and morphology. Normal central canal and intervertebral neuroforamina. Normal visualized soft tissue structures. CT/Spine Cervical without Contras IMPRESSION: Stable degenerative changes of the cervical spine without acute fracture or subluxation. Note: MRI is more sensitive than CT in detecting cord injury, ligamentous injury and epidural hematoma. If there is continued clinical concern for any of these entities, MRI should be considered. Electronically Signed: Saji Gaitan DO at 23:06 EDT Tel [phone], Service support ,
--- NOTE | 2020-10-28 22:02 | RAD_ITS ---
STUDY: X-RAY - LEFT SHOULDER REASON FOR EXAM: Male, 55 years old. Pain after fall. TECHNIQUE: 2 view(s) of the shoulder. COMPARISON: None. FINDINGS: There is mild degenerative arthrosis of the glenohumeral articulation. There is degenerative arthrosis of the acromioclavicular joint without inferior osseous spur formation. Normal acromion. There is no acute fracture, dislocation or destructive osseous pathology. Normal humeral head and visualized proximal humerus. The soft tissue structures are unremarkable. Normal visualized pulmonary apex. RAD/Shoulder min 2 Views IMPRESSION: Degenerative changes left shoulder without acute fracture or dislocation. Electronically Signed: Saji Gaitan DO at 22:57 EDT Tel [phone], Service support ,
[2020-10-28 22:10] LABS: Absolute Lymphocyte Count 0.87 X10^3/uL (0.83-4.51); Absolute Neutrophil Count 8.3 X10^3/uL (2.0-7.7); Basophil# 0.03 X10^3/uL; Basophil% 0.3 % (0-1); Hematocrit 37.8 % (40-54); Lymphocyte # 0.87 X10^3/ul (0.83-4.51); Lymphocyte % 8.7 % (19-41); Mean Corp Hgb Conc 31.7 g/dL (32-36); Mean Corpuscular Hgb 28.9 pg (27.0-32.0); Mean Corpuscular Volume 91.1 fL (80-94); Mean Platelet Vol. 10.6 fl (6.2-12.0); Monocyte# 0.65 X10^3/uL; Monocyte% 6.5 % (0-10); NRBC Flagged by Analyzer 0 % (0-5); Neutrophil # 8.27 X10^3/uL (2.7-7.7); Neutrophil % 83.2 % (47-70); Platelet Count 302 K/mm3 (150-450); RBC Distribution Width CV 16.5 % (11.6-14.6); RBC Distribution Width SD 55.5 fl (35.1-43.9); Red Blood Count 4.15 M/mm3 (4.6-6.2)
[2020-10-28] MEDS: 0.9% Normal Saline 1,000 ML 1000 ML IV (22:15)
[2020-10-28 22:25] LABS: Alcohol, Blood (Medical)-Serum < 3.0 mg/dL
[2020-10-28 22:30] LABS: ALB/GLOB Ratio 0.7 RATIO (0.9-2.4); AST(SGOT) 17 U/L (15-37); Alanine Aminotransfer ALT/SGPT 13 U/L (16-61); Albumin, Serum 2.6 g/dL (3.2-5.0); Alkaline Phosphatase 114 U/L (45-117); Anion Gap 4 (5-15); BUN 13 mg/dL (7-18); BUN/Creat Ratio 11.7 RATIO (10-20); Calcium,Total 8.7 mg/dL (8.5-10.1); Chloride 101 mmol/L (98-107); Creatinine, Serum 1.11 mg/dL (0.70-1.30); EST Glomerular Filtration Rate 72 mL/min (>60); Est Glom Filt Rate - Afr Amer 88 mL/min (>60); Estimated Creatinine Clearance 66.99 ml/min; Globulin 3.9 g/dL (2.2-4.2); Glucose 80 mg/dL (74-106); Potassium 3.7 mmol/L (3.5-5.1); Protein, Total 6.5 g/dL (6.4-8.2); Sodium Level 135 mmol/L (136-145)
--- NOTE | 2020-10-28 22:30 | RAD_ITS ---
STUDY: X-RAY CHEST REASON FOR EXAM: Male, 55 years old. Weakness. Multiple falls. TECHNIQUE: PA and lateral views of the chest. COMPARISON: 08/14/2020. FINDINGS: Again seen is a right apical mass unchanged from previous study. The lungs are otherwise clear. There is no demonstrated pleural abnormality. Normal size heart. Normal mediastinum. Again seen is elevation of the left hilum. Normal visualized pulmonary arteries. Normal visualized aortic arch and descending thoracic aorta. There are diffuse degenerative changes of the visualized thoracic spine. Normal visualized ribs, clavicles, and shoulders. There is no demonstrated abnormality of the visualized soft tissue structures of the upper abdomen. RAD/Chest 1 View (Portable) IMPRESSION: Stable left apical mass. This may represent chronic scarring however malignancy cannot be completely ruled out on the current exam. Electronically Signed: Saji Gaitan DO at 22:55 EDT Tel [phone], Service support ,
[2020-10-28 22:51] VITALS: BP 119/106; PULSE 84; RESP 16; O2SAT 91
[2020-10-28] MEDS: fentaNYL 100 MCG/2 ML Ampul 50 MCG IV (22:51)
--- NOTE | 2020-10-28 23:01 | ED.RN ---
Attempt to obtain urine sample, pt unable to void
[2020-10-28 23:16] LABS: Bacteria 0 SEEN /hpf (None Seen); Mucous, Urine 0 SEEN /hpf (<or=2+); Red Blood Cells-Urine 0 SEEN /hpf (0-5); Squamous Epithelial Cells - UA 0 SEEN /hpf (0-5); White Blood Cells 0 SEEN /hpf (0-5)
[2020-10-28 23:18] LABS: Color, Urine Yellow (Yellow); Glucose, Dipstick Normal (Normal); Ketone-Dipstick Negative (Negative); Leukocyte Esterase-Dipstick Negative /ul (Negative); Nitrite-Dipstick Negative (Negative); Occult Blood-Urine Negative /ul (Negative); Protein-Dipstick Negative (Negative); Urine Bilirubin Dipstick Negative (Negative); Urine Clarity Clear (Clear); Urine Urobilinogen Normal (Normal)
[2020-10-29] VITALS (10 sets, daily range): BP systolic 118–158; BP diastolic 73–91; PULSE 90–101; RESP 18–20; TEMP 36.1–36.9; O2SAT 87–99
[2020-10-29 00:05] LABS: Amphetamine Urine VISTA NEGATIVE (<1000 ng/mL); Barbiturate Urine VISTA NEGATIVE (< 200 ng/mL); Benzodiazepine Urine VISTA NEGATIVE (< 200 ng/mL); Cocaine Urine VISTA NEGATIVE (< 300 ng/mL); Ecstacy Urine VISTA NEGATIVE (< 500 ng/mL); Methadone Urine VISTA NEGATIVE (< 300 ng/mL); PCP Urine VISTA NEGATIVE (< 25 ng/mL); THC Urine VISTA POSITIVE (< 50 ng/mL); Vista UDS pH Range 5
--- NOTE | 2020-10-29 00:38 | ED.DCSUM_ITS ---
History of Present Illness Chief Complaint: Fall Informant: Patient Narrative: Patient is a 55-year-old male with history of carotid stenosis, right hip fracture, hypocalcemia, hypertension, peripheral neuropathy, hypothyroid, type 2 diabetes mellitus, chronic opioid use, GERD, thrombocytopenia, adenocarcinoma of the left lung, chronic hepatitis C and stroke presenting from home with increased weakness and falls. Patient states he has been falling more frequently. He does not use hit his head. He is complaining of pain in his left shoulder and upper back. He is not on any blood thinners. Patient notes he lives home alone. He did drive himself here. He denies any chest pain, coug h or difficulty breathing. Nuys any nausea or vomiting. He denies any other acute complaints at this time. Patient does seem to be a poor historian. Past Medical History - Allergies and Home Meds Allergies/Adverse Reactions: Allergies No Known Allergies Allergy (Verified 10/28/20 21:06) Primary Care Physician: Zurdo Esparza MD [Primary Care Provider] - Past Medical History: - - carotid stenosis, right hip fracture, hypocalcemia, hypertension, peripheral neuropathy, hypothyroid, type 2 diabetes mellitus, chronic opioid use, GERD, thrombocytopenia, adenocarcinoma of the left lung, chronic hepatitis C and stroke Surgical History: noncontributory Lives: Alone Smoking Status: Current every day smoker - Family History Maternal Family History: Family History (Last Updated 01/26/20 @ 13:43 by Aileen Amador) Father Heart disease Family History: Reports: - - no lung cancer. He thinks his mother is bipolar Review of Systems General: Reports: Malaise. Denies: Chills, Fever, Sweats Eyes: Denies: Visual changes - bilaterally, Diplopia ENT: Denies: Rhinorrhea, Sore throat Cardiovascular: Denies: Chest pain, Palpitations Respiratory: Denies: Dyspnea, Cough, Dyspnea on exertion Gastrointestinal: Denies: Abdominal pain, Nausea, Vomiting, Diarrhea, Melena, Hematochezia Genitourinary: Denies: Dysuria, Hematuria, Frequency Musculoskeletal: Reports: Neck pain, Back pain, Extremity Pain - left shoulder Skin: Denies: Rash, Wounds Neurological: Denies: Headache, Weakness, Numbness Physical Exam Vital Signs/Narrative: Vital Signs Temp Pulse Resp BP Pulse Ox 10/29/20 00:20 96 20 H 124/91 H 87 10/28/20 22:51 84 16 119/106 H 91 10/28/20 20:53 98 F 92 17 100/66 99 Inital Vital Signs reviewed: Yes General: Well developed, Cachectic, No Acute Distress Head: Normocephalic, Atraumatic. Negative for: Trauma Eyes: Perrl, EOMI ENT: Moist mucous membranes, No rhinorrhea, TM's clear, - - No signs of basilar skull fracture Neck: Supple, Nontender Cardiovascular: Regular rate, Regular rhythm, No murmurs Respiratory: No distress, Chest nontender, Diminished, - - Coarse breath sounds throughout Abdomen: Soft, Nontender, Nondistended, Normal bowel sounds Back: Nontender, Normal Inspection Extremities: Nontender, No edema, - - No obvious deformity. Pelvis is stable. Tenderness palpation diffusely of the left shoulder. Normal range of motion. Skin: Normal color, No rash Neurological: Alert, Oriented x3, Cranial nerves II-XII grossly intact, Normal Strength, Normal Sensation, - - No asterixis. Negative for: Normal Gait - Unsteady gait Psychological: Normal affect, Normal Mood Diagnostic/Tx/Re-eval Chest X-Ray - ED: 1 View, Read by ED Physician, Read by Radiologist, No Acute Disease, - - Left apical mass Clinical Impression(s) from Imaging Studies Brain CT 10/28/20 21:59 IMPRESSION: 1. No evidence for acute intracranial calvarial abnormality. 2. Mild worsening of sinusitis with compared to prior study Electronically Signed: Saji Gaitan DO at 23:03 EDT Tel [phone], Service support , Cervical Spine CT 10/28/20 22:00 IMPRESSION: Stable degenerative changes of the cervical spine without acute fracture or subluxation. Note: MRI is more sensitive than CT in detecting cord injury, ligamentous injury and epidural hematoma. If there is continued clinical concern for any of these entities, MRI should be considered. Electronically Signed: Saji Gaitan DO at 23:06 EDT Tel [phone], Service support , Shoulder X-Ray 10/28/20 22:02 IMPRESSION: Degenerative changes left shoulder without acute fracture or dislocation. Electronically Signed: Saji Gaitan, at 22:57 EDT Tel [phone], Service support , Chest X-Ray 10/28/20 22:30 IMPRESSION: Stable left apical mass. This may represent chronic scarring however malignancy cannot be completely ruled out on the current exam. Electronically Signed: Saji Gaitan, DO at 22:55 EDT Tel [phone], Service support , Laboratory Data 10/28/20 10/28/20 10/28/20 21:05 21:05 21:05 WBC 10.0 RBC 4.15 L Hgb 12.0 L Hct 37.8 L MCV 91.1 MCH 28.9 MCHC 31.7 L RDW Std Deviation 55.5 H RDW Coeff of Sophie 16.5 H Plt Count 302 MPV 10.6 Immature Gran % (Auto) 0.300 Neut % (Auto) 83.2 H Lymph % (Auto) 8.7 L Taylor % (Auto) 6.5 Eos % (Auto) 1.0 Baso % (Auto) 0.3 Absolute Neuts (auto) 8.3 H Absolute Lymphs (auto) 0.87 Nucleated RBC % 0 Sodium 135 L Potassium 3.7 Chloride 101 Carbon Dioxide 30.0 Anion Gap 4 L BUN 13 Creatinine 1.11 Estim Creat Clear Calc 66.99 Est GFR (MDRD) Af Amer 88 Est GFR (MDRD) Non-Af 72 BUN/Creatinine Ratio 11.7 Glucose 80 Calcium 8.7 Total Bilirubin 0.30 AST 17 ALT 13 L Alkaline Phosphatase 114 Ammonia Troponin I < 0.015 Total Protein 6.5 Albumin 2.6 L Globulin 3.9 Albumin/Globulin Ratio 0.7 L Urine Color Urine Clarity Urine pH Ur Specific Poston Urine Protein Urine Glucose (UA) Urine Ketones Urine Occult Blood Urine Nitrite Urine Bilirubin Urine Urobilinogen Ur Leukocyte Esterase Urine RBC Urine WBC Ur Squamous Epith Cells Urine Bacteria Urine Mucus Urine Opiates Screen Urine Methadone Screen Ur Barbiturates Screen Ur Phencyclidine Scrn Ur Amphetamines Screen U Methamphetamin-MDMA U Benzodiazepines Scrn Urine Cocaine Screen U Cannabinoids Screen Ur Drug Screen Comment Ethyl Alcohol < 3.0 10/28/20 10/28/20 10/28/20 22:10 23:10 23:10 WBC RBC Hgb Hct MCV MCH MCHC RDW Std Deviation RDW Coeff of Sophie Plt Count MPV Immature Gran % (Auto) Neut % (Auto) Lymph % (Auto) Taylor % (Auto) Eos % (Auto) Baso % (Auto) Absolute Neuts (auto) Absolute Lymphs (auto) Nucleated RBC % Sodium Potassium Chloride Carbon Dioxide Anion Gap BUN Creatinine Estim Creat Clear Calc Est GFR (MDRD) Af Amer Est GFR (MDRD) Non-Af BUN/Creatinine Ratio Glucose Calcium Total Bilirubin AST ALT Alkaline Phosphatase Ammonia 11.0 Troponin I Total Protein Albumin Globulin Albumin/Globulin Ratio Urine Color Yellow Urine Clarity Clear Urine pH 5.0 Ur Specific Poston 1.010 Urine Protein Negative Urine Glucose (UA) Normal Urine Ketones Negative Urine Occult Blood Negative Urine Nitrite Negative Urine Bilirubin Negative Urine Urobilinogen Normal Ur Leukocyte Esterase Negative Urine RBC 0 SEEN Urine WBC 0 SEEN Ur Squamous Epith Cells 0 SEEN Urine Bacteria 0 SEEN Urine Mucus 0 SEEN Urine Opiates Screen POSITIVE H Urine Methadone Screen NEGATIVE Ur Barbiturates Screen NEGATIVE Ur Phencyclidine Scrn NEGATIVE Ur Amphetamines Screen NEGATIVE U Methamphetamin-MDMA NEGATIVE U Benzodiazepines Scrn NEGATIVE Urine Cocaine Screen NEGATIVE U Cannabinoids Screen POSITIVE H Ur Drug Screen Comment Ethyl Alcohol - Rhythm Strip Rhythm Strip: Sinus Rhythm Rate: 87 Ectopy: None - EKG Initial EKG Interpretation: Sinus Rhythm, - - Normal sinus rhythm at a rate of 87 Normal axis Normal intervals Normal ST segments - Medical Decision Making Evaluate for increased frequency of falls and generalized weakness. On exam patient appears chronically ill with no focal findings. He does not have any obvious deformity or signs of fracture. X-ray interpreted by myself and radiology shows arthritic changes of the shoulder and no acute process on his chest x-ray. Patient does have a left apical mass be does have a known history of lung cancer. Patient is ambulate in the ER and becomes hypoxic down to 86% is also very unsteady on his feet. Patient states he does not wear oxygen at baseline. He is placed on supplemental oxygen in the ER.Lab work is largely unremarkable. Urine tox is positive for opiates and cannabis but patient admits to this and has a history of this. CT of the brain and C-spine do not show any acute process. Patient be admitted for further evaluation of his hypoxia and debility/frequent falls. CTA is added on at time of disposition. ED Disposition - Plan for ED Patient: Disposition: [facility] Diagnosis: Acute respiratory failure with hypoxia, Debility, Frequent falls Referrals: Zurdo Esparza MD [Primary Care Provider] -
--- NOTE | 2020-10-29 00:40 | CT_ITS ---
STUDY: CTA CHEST REASON FOR EXAM: Male, 55 years old. Hypoxic. RADIATION DOSAGE (If Supplied By Facility): CTDIvol = ( 11.88 ) mGy, DLP = ( 344.91 ) mGycm TECHNIQUE: The examination was performed with the intravenous administration of IV 100mL Isovue-370. Post-processing of the angiographic images was performed, with MIP reconstructed images. Individualized dose optimization techniques were used for this CT. COMPARISON: 08/25/2019 CTA chest. FINDINGS: Heart and great vessels: Heart size normal. No dissection or aneurysm of the thoracic aorta. No pulmonary embolus. No evidence of right heart strain. Coronary artery atherosclerosis. Interval development of small simple density pericardial effusion measuring up to 1.2 cm thick most prominent along the anterior aspect of the heart appear Lungs, pleura: Interval progression of left apical volume loss with elevation of the left hilum, and dense atelectasis of the left lung apex. An oval 7.5 x 3.2 x 4.4 cm TRV X CC X AP mass with peripheral increased density, either blood vessels or calcifications, is better organized and better defined compared to the previous study. Patchy groundglass opacities in the inferior aspect of the right upper lobe and in the right middle lobe are new compared to prior. Bilateral bronchial wall thickening again demonstrated. No pneumothorax or pleural effusion. Underlying mild emphysema again demonstrated. Mediastinum: Prominent left hilar soft tissue contiguous with the left apical scarring is again demonstrated. No other mass or adenopathy in the mediastinum or in the right hilum. Small hiatal hernia contains a portion of the gastric fundus. Osseous: Chronic L1 compression deformity again demonstrated. No acute osseous abnormality. Chest wall: No concerning findings. Upper abdomen: No acute findings. CT/CTA Chest W/WO Contrast IMPRESSION: No pulmonary embolus or thoracic aortic dissection or aneurysm. Patchy groundglass opacities right upper lobe and right middle lobe suspicious for mild edema or pneumonia. Interval development of a small simple density pericardial effusion. Interval progression of volume loss/scarring in the left lung apex and with development of a well organized appearing oval mass either in the left lung or adjacent pleural space. This all could represent organizing posttreatment changes. Residual neoplasm remains possible however. Coronary artery atherosclerosis, other chronic findings as above. Electronically Signed: Monroe Hagan MD at 2:52 EDT Tel , Service support ,
[2020-10-29] MEDS: Acetaminophen 325 MG Tablet 650 MG PO (03:36)
[2020-10-29 08:05] LABS: Bedside Glucose 74 mg/dL (70-110)
[2020-10-29 08:54] LABS: ALB/GLOB Ratio 0.8 RATIO (0.9-2.4); AST(SGOT) 16 U/L (15-37); Alanine Aminotransfer ALT/SGPT 11 U/L (16-61); Albumin, Serum 2.2 g/dL (3.2-5.0); Alkaline Phosphatase 100 U/L (45-117); Anion Gap 4 (5-15); BUN 13 mg/dL (7-18); BUN/Creat Ratio 12.9 RATIO (10-20); Chloride 106 mmol/L (98-107); Creatinine, Serum 1.01 mg/dL (0.70-1.30); EST Glomerular Filtration Rate 81 mL/min (>60); Est Glom Filt Rate - Afr Amer 98 mL/min (>60); Estimated Creatinine Clearance 73.62 ml/min; Globulin 2.9 g/dL (2.2-4.2); Glucose 78 mg/dL (74-106); Potassium 3.8 mmol/L (3.5-5.1); Protein, Total 5.1 g/dL (6.4-8.2); Sodium Level 141 mmol/L (136-145)
[2020-10-29 09:17] LABS: Hematocrit 35.3 % (40-54); Mean Corpuscular Hgb 28.6 pg (27.0-32.0); Mean Corpuscular Volume 91.9 fL (80-94); Red Blood Count 3.84 M/mm3 (4.6-6.2); White Blood Count 7.8 K/mm3 (4.4-11.0)
[2020-10-29 09:18] LABS: Absolute Neutrophil Count 6.3 X10^3/uL (2.0-7.7); Basophil% 1.3 % (0-1); Eosinophils% 0.5 % (0-5); Lymphocyte % 10.3 % (19-41); Mean Corp Hgb Conc 31.2 g/dL (32-36); Monocyte% 6.9 % (0-10); Neutrophil # 6.27 X10^3/uL (2.7-7.7); Neutrophil % 80.5 % (47-70); Platelet Count 305 K/mm3 (150-450); RBC Distribution Width CV 16.7 % (11.6-14.6); RBC Distribution Width SD 56.3 fl (35.1-43.9)
[2020-10-29 09:19] LABS: NRBC Flagged by Analyzer 0 % (0-5)
--- NOTE | 2020-10-29 11:00 | CASEMGMT ---
RN BARBIE Face to Face with patient for initial transition planning/care coordination assessment. RN CM introduced self and role at [facility]. Patient lying in bed, alert and oriented. Patient willing to participate in assessment and is able to answer all questions appropriately. Care providers, pharmacy, and demographics verified. Patient wishes to discharge home, with possible HHC pending progress with therapy . Patient states he has no further needs or concerns at this time. CM to follow for discharge planning needs that may arise. PCP: Isaias Specialists: Leroy oncologist Preferred Pharmacy: [facility] Insurance: [employer] Prescription Benefit: yes Living Will/HPOA: none LNOK: mother, brother Living Arrangements: Patient lives alone in a 2nd floor apartment with elevator. Patient states he is independent at home. Transportation: self DME/HHC: Patient states he has shower chair, raised toilet, cane, grab bars, and rollator at home. Patient states he has had [facility] in the past. Disposition Plan: Patient to discharge home with follow-up plans in place. Will monitor for need for HHC at discharge. Brittni CHAPMAN, RN, CM
--- NOTE | 2020-10-29 11:55 | CASEMGMT ---
Social Work Note SW reviewed chart. Pt has CM Yoselyn Henderson through [facility]. SW placed a call to Yoselyn at [facility] and left message updating her on pt's admission to [facility]. Brittni Weeks TRAVEL MANAGER, SENIOR UX DEVELOPER
[2020-10-29 12:00] LABS: Bedside Glucose 118 mg/dL (70-110)
--- NOTE | 2020-10-29 13:21 | NURSING ---
fall and safety documentation as per downtime documentation by Gerber Steen RN
[2020-10-29 16:46] LABS: Bedside Glucose 118 mg/dL (70-110)
[2020-10-29 22:20] LABS: Bedside Glucose 115 mg/dL (70-110)
[2020-10-30] VITALS (10 sets, daily range): BP systolic 99–149; BP diastolic 62–89; PULSE 96–115; RESP 17–18; TEMP 36.9–37.1; O2SAT 94–97
[2020-10-30] MEDS: Ondansetron 4 MG/2 ML Vial IV (02:13)
[2020-10-30 06:27] LABS: Absolute Lymphocyte Count 0.96 X10^3/uL (0.83-4.51); Basophil# 0.02 X10^3/uL; Basophil% 0.2 % (0-1); Eosinophil# 0.04 X10^3/uL; Eosinophils% 0.3 % (0-5); Hematocrit 39.8 % (40-54); Hemoglobin 12.8 g/dL (13.0-16.5); Lymphocyte # 0.96 X10^3/ul (0.83-4.51); Lymphocyte % 8.2 % (19-41); Mean Corp Hgb Conc 32.2 g/dL (32-36); Mean Corpuscular Hgb 29.3 pg (27.0-32.0); Mean Corpuscular Volume 91.1 fL (80-94); Mean Platelet Vol. 9.9 fl (6.2-12.0); Monocyte# 0.57 X10^3/uL; Monocyte% 4.9 % (0-10); NRBC Flagged by Analyzer 0 % (0-5); Neutrophil # 10.01 X10^3/uL (2.7-7.7); Neutrophil % 85.9 % (47-70); Platelet Count 295 K/mm3 (150-450); RBC Distribution Width CV 16.4 % (11.6-14.6); RBC Distribution Width SD 55.1 fl (35.1-43.9); Red Blood Count 4.37 M/mm3 (4.6-6.2); White Blood Count 11.7 K/mm3 (4.4-11.0)
[2020-10-30 06:46] LABS: Bedside Glucose 92 mg/dL (70-110)
[2020-10-30 06:53] LABS: Anion Gap 3 (5-15); BUN 11 mg/dL (7-18); BUN/Creat Ratio 13.8 RATIO (10-20); Calcium,Total 8.6 mg/dL (8.5-10.1); Chloride 102 mmol/L (98-107); EST Glomerular Filtration Rate 106 mL/min (>60); Est Glom Filt Rate - Afr Amer 128 mL/min (>60); Estimated Creatinine Clearance 92.94 ml/min; Glucose 90 mg/dL (74-106); Potassium 3.7 mmol/L (3.5-5.1); Sodium Level 135 mmol/L (136-145)
[2020-10-30 11:41] LABS: Bedside Glucose 161 mg/dL (70-110)
[2020-10-30] MEDS: Insulin Lispro 100 UNIT/ML INSULN.PEN SC (12:33)
--- NOTE | 2020-10-30 13:11 | ECHOD_ITS ---
Reason For Study: Syncope Procedure This was a 2D Doppler, Color Flow transthoracic echocardiogram. The study was technically difficult. Exam performed portable in patient room. Left Ventricle Normal LV size. Left ventricular systolic function is normal. The estimated ejection fraction is 60 %. Transmitral doppler flow suggestive of impaired relaxation of left ventricle. No regional wall motion abnormalities noted. Right Ventricle Normal RV size. Normal systolic function. Atria Normal left atrium. Normal right atrium. No doppler evidence for ASD. Mitral Valve There is no mitral annular calcification. Normal mitral valve. Trivial mitral valve insufficiency. Tricuspid Valve Normal tricuspid valve. Trivial tricuspid valve insufficiency. Unable to estimate RV systolic pressure/pulmonary artery pressure due to technically difficult study. Aortic Valve Trisinus/trileaflet aortic valve. Mild focal aortic valve calcification. Pulmonic Valve The pulmonic valve is not well visualized. Great Vessels Normal sized aortic root. Pericardium/Pleural Small pericardial effusion. There are no echocardiographic indications of cardiac tamponade. MMode/2D Measurements & Calculations LVIDd: 3.7 cm IVSd: 0.94 cm Ao root diam: 2.9 cm LVIDs: 2.8 cm LVPWd: 1.1 cm RVDd: 2.7 cm FS: 24.7 % LAV(MOD-bp): 16.3 ml LVAd ap4: 23.5 cm2 SV(MOD-sp4): 30.4 ml LAV(MOD-bp) Indexed: 9.3 ml/m2 LVLd ap4: 8.1 cm LAV(MOD-sp2): 18.8 ml EDV(MOD-sp4): 58.9 ml LAV(MOD-sp4): 15.2 ml EDV(sp4-el): 58.3 ml LVAs ap4: 14.6 cm2 LVLs ap4: 6.9 cm ESV(MOD-sp4): 28.6 ml ESV(sp4-el): 26.1 ml EF(MOD-sp4): 51.5 % EF(sp4-el): 55.2 % SV(sp4-el): 32.2 ml LA A4 area: 8.8 cm2 LA dimension(2D): 2.4 cm RA A4 area: 12.0 cm2 Doppler Measurements & Calculations MV E max michael: 50.6 cm/sec Lat Peak E' Michael: 8.5 cm/sec Med Peak E' Michael: 6.8 cm/sec MV A max michael: 70.6 cm/sec E/E' lat: 6.0 E/E' med: 7.5 MV E/A: 0.72 Ao V2 max: 111.8 cm/sec LV V1 max: 79.3 cm/sec PA V2 max: 68.5 cm/sec Ao max P.0 mmHg LV V1 max P.5 mmHg Ao V2 mean: 78.8 cm/sec Ao mean P.7 mmHg Ao V2 VTI: 20.3 cm ECHO/Echo Complete Interpretation Summary The study was technically difficult. Left ventricular systolic function is normal. The estimated ejection fraction is 60 %. Trivial mitral valve insufficiency. Trivial tricuspid valve insufficiency. Mild focal aortic valve calcification. Small pericardial effusion. There are no echocardiographic indications of cardiac tamponade. Unable to estimate RV systolic pressure/pulmonary artery pressure due to techni kevin difficult study. Transmitral doppler flow suggestive of impaired relaxation of left ventricle Ordering Physician: Dionisio Keller Referring Physician: Zurdo Esparza Performed By: Marta Cho, LOREN, RVT
--- NOTE | 2020-10-30 13:38 | PN.HOSP_ITS ---
Documented by User: Brynn Reid NP, METAL BONDING WORKER-C 10/30/20 13:54 Subjective Subjective: Patient seen and examined. Denies dizziness, lightheadedness. No further episodes of syncope/presyncope. States episodes have been occurring frequently at home and he falls down suddenly. Objective Data Objective Data Vital Signs: Vital Signs Temp Pulse Resp BP Pulse Ox 98.6 F 96 18 134/62 H 94 10/30/20 08:00 10/30/20 08:00 10/30/20 10:00 10/30/20 08:00 10/30/20 10:00 Oxygen Flow Rate (L/min) 2 Oxygen Delivery Method Room Air Weight: 142 lb 3.17 oz Body Mass Index (BMI) 22.2 Finger Stick Blood Glucose 144 Intake & Output: Intake and Output for Last 24 Hours 10/28/20 10/29/20 10/30/20 23:59 23:59 23:59 Intake Total 1000 / 1000 1050 / 1050 860 / 860 Output Total 650 / 650 Balance 1000 / 1000 400 / 400 860 / 860 Lab / Micro Data Result Diagrams: 10/30/20 06:10 10/30/20 06:10 Labs: Laboratory Results - last 24 hr 10/29/20 10/29/20 10/30/20 16:35 22:15 06:10 WBC 11.7 H RBC 4.37 L Hgb 12.8 L Hct 39.8 L MCV 91.1 MCH 29.3 MCHC 32.2 RDW Std Deviation 55.1 H RDW Coeff of Sophie 16.4 H Plt Count 295 MPV 9.9 Immature Gran % (Auto) 0.500 Neut % (Auto) 85.9 H Lymph % (Auto) 8.2 L Woodson % (Auto) 4.9 Eos % (Auto) 0.3 Baso % (Auto) 0.2 Absolute Neuts (auto) 10.0 H Absolute Lymphs (auto) 0.96 Nucleated RBC % 0 Sodium Potassium Chloride Carbon Dioxide Anion Gap BUN Creatinine Estim Creat Clear Calc Est GFR (MDRD) Af Amer Est GFR (MDRD) Non-Af BUN/Creatinine Ratio Glucose Calcium POC Glucose 118 H 115 H 10/30/20 10/30/20 10/30/20 06:10 06:41 11:22 WBC RBC Hgb Hct MCV MCH MCHC RDW Std Deviation RDW Coeff of Sophie Plt Count MPV Immature Gran % (Auto) Neut % (Auto) Lymph % (Auto) Woodson % (Auto) Eos % (Auto) Baso % (Auto) Absolute Neuts (auto) Absolute Lymphs (auto) Nucleated RBC % Sodium 135 L Potassium 3.7 Chloride 102 Carbon Dioxide 30.0 Anion Gap 3 L BUN 11 Creatinine 0.80 Estim Creat Clear Calc 92.94 Est GFR (MDRD) Af Amer 128 Est GFR (MDRD) Non-Af 106 BUN/Creatinine Ratio 13.8 Glucose 90 Calcium 8.6 POC Glucose 92 161 H Rhythm Strip Rhythm Strip: Sinus Rhythm Rate: 87 Ectopy: None Physical Exam Const alert, oriented x3 and no apparent distress Orientation / Consciousness: awake, oriented to person, oriented to place and oriented to time HEENT normocephalic and moist oral mucous membranes Eyes PERRL, EOMs intact bilaterally and conjunctivae normal Neck no lymphadenopathy Resp normal respiratory effort and clear to auscultation bilaterally Cardio regular rate, regular rhythm and no murmurs Peripheral Pulses: pulses 2+ throughout GI normal to inspection, nondistended, normoactive bowel sounds, non-tender and non-distended Extremity normal to inspection Peripheral Pulses: Yes pulses 2+ throughout Skin no rashes or lesions noted Lesions: no lesions Rashes: no rashes Trauma: no lacerations or abrasions Neuro oriented x3 Sensorium / Orientation: awake and alert Psych affect normal Assessment & Plan Assessment/Plan (1) Syncope: Status: Acute Code(s): R55 - Syncope and collapse (2) Acute respiratory failure with hypoxia: Status: Acute Code(s): J96.01 - Acute respiratory failure with hypoxia (3) Debility: Status: Acute Code(s): R53.81 - Other malaise Plan: 1. Recurrent syncope-unclear etiology. Troponin negative. Brain CT negative for acute process. Monitor telemetry. Obtain echocardiogram. Obtain orthostatic vitals. Recommend Holter monitor at discharge as well as cardiology follow-up. PT/OT 2. Acute hypoxic respiratory insufficiency-oxygen stable on room air. CTA on admission negative for PE. Afebrile, no leukocytosis. No evidence of acute process. Patient may have component of chronic ataxia given underlying lung CA and COPD. Home oxygen testing prior to discharge. 3. Bilateral carotid stenosis-Following with Dr. Cebul, vascular surgery as outpatient. Surgical intervention was not recommended. Previous CTA with greater than 70% stenosis bilaterally. Hondo to be over read per vascular medicine. Repeat duplex ultrasound showed less than 50% stenosis bilaterally. 4. History of type 2 diabetes mellitus-diet controlled. Previous A1c 4.7% 5. Hypertension-stable, not on medication regimen. 6. Hyperlipidemia-continue statin. 7. Hypothyroidism-continue Synthroid regimen 8. COPD-as seen albuterol aerosol. 9. Tobacco dependence-encourage cessation. 10. Non-small cell lung cancer-follows with Dr. Harper. 11. Vitamin D deficiency-continue supplementation. 12. Chronic macrocytic anemia-stable. 13. Breen's esophagus-on PPI. 14. History of alcohol abuse-denies recent use. 15. BPH-on Flomax. 16. Depression-on Seroquel, SSRI. DVT prophylaxis-Lovenox subcu This patient was seen by ANGEL Johnson under the supervision of Dr. Keller. Documented by User: Dr. Dionisio Keller MD 10/30/20 15:56 Objective Data Lab / Micro Data Result Diagrams: 10/30/20 06:10 10/30/20 06:10 Addendum: Dr. Keller I personally examined the patient and reviewed the chart. I agree with the above. 55-year-old male with history of non-small cell lung cancer presents to the hospital with frequent falls. He says that he is fallen 4 or 5 times over the last year and this time when he fell he was unable to get up on his own. He states that these episodes occur randomly and he does not have any presyncopal feelings including lightheadedness or dizziness. He states that he just drops and then wakes up when he is on the ground. He denies any chest pain or palpitations. He was noted about a year ago to have an episode of QT prolongation and he is on medications I can do this. His most recent EKG did not demonstrate this however. Will obtain an echo for further clarification as well as place him on telemetry. Would recommend an outpatient Holter monitor and follow-up with cardiology as an outpatient for further evaluation. In the meantime will obtain orthostatic vital signs and rule out a vasovagal cause. OBSV E&M: 03294 Subsequent observation care L2
--- NOTE | 2020-10-30 14:00 | CASEMGMT ---
Addendum entered by Angelo Mann 10/30/20 14:40: 1425: Call received back from [facility]. They are able to accept pt. Original Note: DANG VALENTIN NOTE: Intro role of CM to patient and [facility]ONTES form explained re: Observation status for treatment of fall. Explained hospitalization will be paid per his insurance policy for Outpatient billing and condition will continue to be evaluated for Inpt necessity. Also let pt know that [facility] sends paper in the billing packet with their phone number if questions arise. Discussed Pharmacy section of MONTES form and self administered medication guideline. Pt verbalizes understanding and does not have further questions. Form signed, copy made and placed in chart, and original given to pt. Discussed discharge plans w/pt. He states he wishes to return home and would like [facility]. Pt was provided with list of? [facility] providers including quality and resource use data and consistent with the patient's preferred geographic region, medical needs, and insurance network. [facility] Call placed to [facility] and referral made. She was made aware anticipate pt will be ready for discharge either today or tomorrow. Awaiting acceptance. Pt inquired if having Palliative care would interfere with HHC. DANG VALENTIN informed him that he could have both services at the same time. DANG VALENTIN inquired if Palliative was through [facility] and he states he is not sure. Call placed to [facility] and spoke w/Brianna. She confirmed pt is active with them. She was made aware pt has been admitted to [facility] under OBS and anticipate he may be ready for discharge either today or tomorrow and that [facility] referral has been made. Rufina CHAPMAN RN, CM ? .
[2020-10-30] MEDS: Levothyroxine 75 MCG Tablet PO (14:44)
[2020-10-30] MEDS: Pantoprazole Sodium 40 MG Tablet PO (14:44)
[2020-10-30] MEDS: Citalopram 40 MG TABLET PO (14:44)
[2020-10-30] MEDS: Acetaminophen 325 MG Tablet 650 MG PO (14:48)
[2020-10-30] MEDS: oxyCODONE 5 MG Tablet PO ×2 (14:49→21:31)
[2020-10-30 17:01] LABS: Bedside Glucose 127 mg/dL (70-110)
[2020-10-30] MEDS: Calcium Carbonate 500 MG Tablet PO (18:37)
[2020-10-30] MEDS: Tamsulosin HCl 0.4 MG Capsule PO (18:38)
[2020-10-30 21:31] LABS: Bedside Glucose 92 mg/dL (70-110)
[2020-10-30] MEDS: Nortriptyline 25 MG Capsule 50 MG PO (21:31)
[2020-10-30] MEDS: Atorvastatin Calcium 40 MG Tablet PO (21:32)
[2020-10-30] MEDS: QUEtiapine 100 MG Tablet 300 MG PO (21:32)
[2020-10-31] VITALS (9 sets, daily range): BP systolic 103–137; BP diastolic 65–109; PULSE 95–120; RESP 16; TEMP 36.7–37; O2SAT 93–95
[2020-10-31 06:30] LABS: Hemoglobin 12.9 g/dL (13.0-16.5); Mean Corp Hgb Conc 31.5 g/dL (32-36); Mean Corpuscular Hgb 28.8 pg (27.0-32.0); Mean Corpuscular Volume 91.5 fL (80-94); Platelet Count 326 K/mm3 (150-450); RBC Distribution Width CV 16.5 % (11.6-14.6); RBC Distribution Width SD 55.4 fl (35.1-43.9); Red Blood Count 4.48 M/mm3 (4.6-6.2)
[2020-10-31] MEDS: Enoxaparin 40 MG/0.4 ML Syringe SC (06:48)
[2020-10-31] MEDS: Levothyroxine 75 MCG Tablet PO (06:48)
[2020-10-31 06:55] LABS: Bedside Glucose 96 mg/dL (70-110)
[2020-10-31 06:57] LABS: Anion Gap 5 (5-15); BUN 9 mg/dL (7-18); BUN/Creat Ratio 10.6 RATIO (10-20); Calcium,Total 8.7 mg/dL (8.5-10.1); Chloride 102 mmol/L (98-107); Creatinine, Serum 0.85 mg/dL (0.70-1.30); EST Glomerular Filtration Rate 99 mL/min (>60); Est Glom Filt Rate - Afr Amer 119 mL/min (>60); Estimated Creatinine Clearance 87.48 ml/min; Glucose 91 mg/dL (74-106); Potassium 3.5 mmol/L (3.5-5.1); Sodium Level 136 mmol/L (136-145)
[2020-10-31] MEDS: Calcium Carbonate 500 MG Tablet PO (08:01)
[2020-10-31] MEDS: Pantoprazole Sodium 40 MG Tablet PO (08:01)
[2020-10-31] MEDS: Aspirin 81 MG TAB.CHEW PO (08:01)
[2020-10-31] MEDS: Citalopram 40 MG TABLET PO (08:01)
[2020-10-31] MEDS: oxyCODONE 5 MG Tablet PO (08:03)
--- NOTE | 2020-10-31 09:42 | DCINST_ITS ---
Discharge Instructions Outpatient Procedure Reason For Visit: DEBILITY / INCREASED FALLS Diet Discharge Diet: Low fat / Low cholesterol Activity Discharge Activity: Return to Normal Activity Dressing / Incision Call your doctor if you observe: Fever of 101 or Higher, Shortness of breath, Dizziness, Fainting spells, Swelling in the ankles, Chest pain and Increased palpitations (irregular heartbeat) Follow Up Care Test Results: Test results from this visit will be discussed in further detail at your follow-up appointment, if applicable. Discharge Plan Admission Admit Date/Time: 10/29/20 01:40 Primary Reason for Your Visit: Syncope Attending Provider: Dionisio Keller Primary Care Provider: Zurdo Esparza Instructions Patient Instructions: What Is Syncope?, Understanding Dizziness, Balance Problems, and Fainting, Possible Causes of Dizziness or Fainting Discharge Orders/Prescriptions Prescriptions: Continued citalopram 40 MG tablet 40 mg PO DAILY RF: 0 levothyroxine 75 MCG tablet 75 mcg PO DAILY RF: 0 omeprazole 40 MG capsule,delayed release(DR/EC) 40 mg PO DAILY RF: 0 tamsulosin 0.4 MG capsule 0.4 mg PO DAILY@1730 Qty: 30 RF: 0 calcium carbonate 500 MG tablet 500 mg PO BIDCM Qty: 60 RF: 0 quetiapine 300 MG tablet 300 mg PO QHS Qty: 30 RF: 0 magnesium chloride 71.5 MG tablet,delayed release (DR/EC) 71.5 mg PO Q8H Qty: 90 RF: 0 ergocalciferol (vitamin D2) 50,000 UNIT capsule 50,000 unit PO QWEEK RF: 0 Potassium Chloride [Klor-Con M20] 20 MEQ Tab.Er.Prt 20 meq PO BID RF: 0 chlorpromazine 10 MG tablet 10 mg PO QHS RF: 0 linagliptin 5 MG tablet 5 mg PO DAILY RF: 0 atorvastatin 40 MG tablet 40 mg PO DAILY Qty: 30 RF: 0 aspirin 81 MG tablet,chewable 81 mg PO DAILY@0800 Qty: 1 RF: 0 ascorbic acid (vitamin C) 500 MG tablet 500 mg PO DAILY RF: 0 nortriptyline 25 MG capsule 50 mg PO QHS RF: 0 oxycodone 5 MG tablet 5 mg PO Q6H PRN PRN (Reason: Pain 1-10 Or Fever) RF: 0 sitagliptin 100 MG tablet 100 mg PO DAILY RF: 0 acetaminophen 500 MG tablet 500 mg PO TID RF: 0 oxycodone-acetaminophen 1 EACH tablet 1 tablet PO Q8H PRN PRN (Reason: Pain) RF: 0 melatonin 3 MG capsule 3 mg PO DAILY RF: 0 Other Ambulatory Orders: Cardiac Holter Monitor, Set-Up (Routine) Location: None Selected Ordered By: Dr. Dionisio Keller Referrals: Zurdo Esparza MD [Primary Care Provider] - In 1 Week Lilia Suazo PA [PHYSICIAN SAFETY REPRESENTATIVE] - Within 2 Weeks Disposition Patient Disposition: Home, self care
--- NOTE | 2020-10-31 10:23 | CASEMGMT ---
Social Work Note Pt is being discharged home today. MARTY placed a call to pt's CM Yoselyn Henderson at [facility] and updated her on discharge. MARTY faxed discharge instructions to Yoselyn. Brittni Weeks INTERNAL AUDIT MANAGER, ROLLOUT MANAGER
[2020-10-31] MEDS: Insulin Lispro 100 UNIT/ML INSULN.PEN SC (10:54)
[2020-10-31 11:07] LABS: Bedside Glucose 196 mg/dL (70-110)
--- NOTE | 2020-10-31 15:53 | DS.PCM_ITS ---
Providers Date of Admission: 10/29/20 Primary Care Physician: Dr. Zurdo Esparza MD Reason For Visit: DEBILITY / INCREASED FALLS Diagnosis Discharge Diagnosis (1) Syncope: Status: Acute Code(s): R55 - Syncope and collapse (2) Acute respiratory failure with hypoxia: Status: Resolved Code(s): J96.01 - Acute respiratory failure with hypoxia (3) Debility: Status: Acute Code(s): R53.81 - Other malaise Medications at Discharge Home Medications citalopram 40 mg PO DAILY 12/15/16 levothyroxine 75 mcg PO DAILY 10/09/19 omeprazole 40 mg PO DAILY 10/09/19 calcium carbonate 500 mg PO BIDCM #60 tab 10/30/19 magnesium chloride 71.5 mg PO Q8H #90 tablet. 10/30/19 quetiapine 300 mg PO QHS #30 tab 10/30/19 tamsulosin 0.4 mg PO DAILY@1730 #30 cap 10/30/19 ergocalciferol (vitamin D2) 50,000 unit PO QWEEK 11/23/19 Potassium Chloride [Klor-Con M20] 20 meq PO BID 01/11/20 chlorpromazine 10 mg PO QHS 01/11/20 linagliptin 5 mg PO DAILY 01/11/20 aspirin 81 mg PO DAILY@0800 #1 tab.chew 01/15/20 atorvastatin 40 mg PO DAILY #30 tab 01/15/20 ascorbic acid (vitamin C) 500 mg PO DAILY 08/14/20 nortriptyline 50 mg PO QHS 08/14/20 oxycodone 5 mg PO Q6H PRN PRN 08/14/20 sitagliptin 100 mg PO DAILY 08/14/20 acetaminophen 500 mg PO TID 10/28/20 melatonin 3 mg PO DAILY 10/28/20 oxycodone-acetaminophen 1 tablet PO Q8H PRN PRN 10/28/20 Hospital Course Operations None Procedures None Summary of Care Provided Minutes Spent on Discharge: 35 Hospital Course: 55-year-old male presented to the hospital with increased weakness and falls. In discussion with him he states that he was having episodes where he would just pass out and then wake up on the ground. He denies any prior sensation to passing out, and he says that there is no warning. He denies any palpitations, lightheadedness, or dizziness. He denies any association with positional changes, however was different with this time is that he had difficulty getting up. He has fallen 3 or 4 times within the last year. Because of this concern for arrhythmia was high and therefore he was placed on telemetry which was unremarkable, initial EKG was normal. Echo was unremarkable and he was discharged on a Holter monitor. He will need to follow- up with cardiology and his PCP as an outpatient. He did have orthostatic vital signs performed which were negative though his heart rate did almost meet the threshold for orthostasis. He does have a risk for QTC prolongation based on medications including chlorpromazine, citalopram, nortriptyline, and Seroquel. His EKGs did not demonstrate a prolonged QTC. Lab work and vital signs were normal and no changes were made to his medications. I discussed with him the plan for discharge today and he expressed understanding over the risk benefits of going home and wants to go home today. Physical Exam Const alert, oriented x3 and no apparent distress HEENT normocephalic and moist oral mucous membranes Eyes PERRL, EOMs intact bilaterally and conjunctivae normal Neck supple and no JVD Resp normal respiratory effort, normal air movement and clear to auscultation bilaterally Cardio regular rate, regular rhythm and no murmurs Peripheral Pulses: pulses 2+ throughout GI soft to palpation, non-tender and non-distended; Negative for hepatosplenomegaly Extremity normal to inspection Peripheral Pulses: Yes pulses 2+ throughout Skin no rashes or lesions noted Neuro no focal motor deficits and no sensory deficits noted Psych affect normal ABG / Lab / Microbiology Data Result Diagrams: 10/31/20 06:00 10/31/20 06:00 Laboratory: Laboratory Results - last 24 hr 10/30/20 10/30/20 10/31/20 16:56 21:27 06:00 WBC 8.0 RBC 4.48 L Hgb 12.9 L Hct 41.0 MCV 91.5 MCH 28.8 MCHC 31.5 L RDW Std Deviation 55.4 H RDW Coeff of Sophie 16.5 H Plt Count 326 MPV 10.0 Sodium Potassium Chloride Carbon Dioxide Anion Gap BUN Creatinine Estim Creat Clear Calc Est GFR (MDRD) Af Amer Est GFR (MDRD) Non-Af BUN/Creatinine Ratio Glucose Calcium POC Glucose 127 H 92 10/31/20 10/31/20 10/31/20 06:00 06:40 10:53 WBC RBC Hgb Hct MCV MCH MCHC RDW Std Deviation RDW Coeff of Sophie Plt Count MPV Sodium 136 Potassium 3.5 Chloride 102 Carbon Dioxide 29.0 Anion Gap 5 BUN 9 Creatinine 0.85 Estim Creat Clear Calc 87.48 Est GFR (MDRD) Af Amer 119 Est GFR (MDRD) Non-Af 99 BUN/Creatinine Ratio 10.6 Glucose 91 Calcium 8.7 POC Glucose 96 196 H Radiography Diagnostic Testing: Radiology Impression Echocardiogram 10/30/20 13:11 Interpretation Summary The study was technically difficult. Left ventricular systolic function is normal. The estimated ejection fraction is 60 %. Trivial mitral valve insufficiency. Trivial tricuspid valve insufficiency. Mild focal aortic valve calcification. Small pericardial effusion. There are no echocardiographic indications of cardiac tamponade. Unable to estimate RV systolic pressure/pulmonary artery pressure due to technically difficult study. Transmitral doppler flow suggestive of impaired relaxation of left ventricle _ Ordering Physician: Dionisio Keller Referring Physician: Zurdo Esparza Performed By: Marta Cho, LOREN, RVT D/C Instructions Discharge Diet: Low fat / Low cholesterol Discharge Activity: Return to Normal Activity Call your doctor if you observe: Fever of 101 or Higher, Shortness of breath, Dizziness, Fainting spells, Swelling in the ankles, Chest pain and Increased palpitations (irregular heartbeat) Meaningful Use Info Meaningful Use Diagnoses (Choose all that apply): None applicable Discharge Plan Admission Admit Date/Time: 10/29/20 01:40 Primary Reason for Your Visit: Syncope Attending Provider: Dionisio Keller Primary Care Provider: Zurdo Esparza Instructions Patient Instructions: What Is Syncope?, Understanding Dizziness, Balance Problems, and Fainting, Possible Causes of Dizziness or Fainting Discharge Orders/Prescriptions Prescriptions: Continued citalopram 40 MG tablet 40 mg PO DAILY RF: 0 levothyroxine 75 MCG tablet 75 mcg PO DAILY RF: 0 omeprazole 40 MG capsule,delayed release(DR/EC) 40 mg PO DAILY RF: 0 tamsulosin 0.4 MG capsule 0.4 mg PO DAILY@1730 Qty: 30 RF: 0 calcium carbonate 500 MG tablet 500 mg PO BIDCM Qty: 60 RF: 0 quetiapine 300 MG tablet 300 mg PO QHS Qty: 30 RF: 0 magnesium chloride 71.5 MG tablet,delayed release (DR/EC) 71.5 mg PO Q8H Qty: 90 RF: 0 ergocalciferol (vitamin D2) 50,000 UNIT capsule 50,000 unit PO QWEEK RF: 0 Potassium Chloride [Klor-Con M20] 20 MEQ Tab.Er.Prt 20 meq PO BID RF: 0 chlorpromazine 10 MG tablet 10 mg PO QHS RF: 0 linagliptin 5 MG tablet 5 mg PO DAILY RF: 0 atorvastatin 40 MG tablet 40 mg PO DAILY Qty: 30 RF: 0 aspirin 81 MG tablet,chewable 81 mg PO DAILY@0800 Qty: 1 RF: 0 ascorbic acid (vitamin C) 500 MG tablet 500 mg PO DAILY RF: 0 nortriptyline 25 MG capsule 50 mg PO QHS RF: 0 oxycodone 5 MG tablet 5 mg PO Q6H PRN PRN (Reason: Pain 1-10 Or Fever) RF: 0 sitagliptin 100 MG tablet 100 mg PO DAILY RF: 0 acetaminophen 500 MG tablet 500 mg PO TID RF: 0 oxycodone-acetaminophen 1 EACH tablet 1 tablet PO Q8H PRN PRN (Reason: Pain) RF: 0 melatonin 3 MG capsule 3 mg PO DAILY RF: 0 Other Ambulatory Orders: Cardiac Holter Monitor, Set-Up (Routine) Location: None Selected Ordered By: Dr. Dionisio Keller Referrals: Zurdo Esparza MD [Primary Care Provider] - In 1 Week Lilia Suazo PA [PHYSICIAN PRODUCTION PLANNER] - Within 2 Weeks Disposition Patient Disposition: Home, self care OBSV E&M: 21925 Observation care discharge
== END 2020-10-31 15:02 | disposition home health service (06) ==
LOC: ED 10-29 00:50 → MS3 10-29 09:08
PROVIDERS: Nurse Practitioner Family; Admitting Provider Hospitalist; Emergency Provider Emergency Medicine; PCP Internal Medicine; Visit Provider Family Medicine
DX: R55 Syncope and collapse (principal); J96.01 Acute respiratory failure with hypoxia; E03.9 Hypothyroidism, unspecified; R53.81 Other malaise; K21.9 Gastro-esophageal reflux disease without esophagitis; E11.42 Type 2 diabetes mellitus with diabetic polyneuropathy; B18.2 Chronic viral hepatitis C; I10 Essential (primary) hypertension; I08.3 Combined rheumatic disorders of mitral, aortic and tricuspid valves; F17.200 Nicotine dependence, unspecified, uncomplicated; E55.9 Vitamin D deficiency, unspecified; N40.0 Benign prostatic hyperplasia without lower urinary tract symptoms; K22.70 Barrett's esophagus without dysplasia; J44.9 Chronic obstructive pulmonary disease, unspecified; E78.5 Hyperlipidemia, unspecified; F32.9 Major depressive disorder, single episode, unspecified; C34.90 Malignant neoplasm of unspecified part of unspecified bronchus or lung; D53.9 Nutritional anemia, unspecified; R29.6 Repeated falls; R53.1 Weakness; Z79.899 Other long term (current) drug therapy; Z79.82 Long term (current) use of aspirin; Z79.891 Long term (current) use of opiate analgesic; Z86.73 Personal history of transient ischemic attack (TIA), and cerebral infarction without residual deficits; Z79.84 Long term (current) use of oral hypoglycemic drugs
CPT/HCPCS: 36415; 70450; 71045; 71275; 72125; 73030; 80048; 80053; 80307; 81001; 82077; 82140; 82962; 84484; 85025; 85027; 93005; 93225; 93226; 93306; 96372; 96374; 96375; 97116; 97162; 97166; 97530; 97535; 97802; 99218; 99285; J7030; P9612; Q9967; A4216; G0378; J2405

== ENCOUNTER → 2020-10-31 15:07 | Outpatient (CLI) | payer MEDICARE, MEDICAID, SELFPAY ==
[2020-10-28 20:53] VITALS: BMI 22.2
== END ==
PROVIDERS: PCP Internal Medicine; Visit Provider Family Medicine
DX: R55 Syncope and collapse (principal)
CPT/HCPCS: 93225; 93226

== ENCOUNTER 2020-12-02 20:22 | Inpatient (IN) | payer MEDICARE, MEDICAID, SELFPAY ==
[2020-12-02 20:23] VITALS: BP 138/100; PULSE 105; RESP 20; TEMP 36.7; O2SAT 88; BMI 22.5
[2020-12-02 20:35] VITALS: RESP 20; O2SAT 100
--- NOTE | 2020-12-02 20:45 | CT_ITS ---
HISTORY: altered mental status Technique:CT Head or Brain W/O Contrast Injection. Sagittal and coronal 2-D reformats. Number of Images including paperwork:249 Comparison: Of the 35 previous radiologic exams at this institution alone, the most recent CT scans of the brain are from October 28, 2020, and August 14 2020. Most recent MRI of the brain with images available is from January 12, 2020. Most recent CTA of the brain is from January 11, 2020. Findings: Periventricular deep and subcortical white matter disease is present. 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 Paranasal sinuses are clear. The brain is atrophic. Calcific ASCVD involves intracranial arteries. No acute intracranial edema or hemorrhage. No acute abnormality of orbits. Middle ear cavities and mastoid air cells are well aerated. Skull is normal. CT/Brain/Head without Contrast IMPRESSION: No acute intracranial abnormality. Chronic changes as above. ASPECT 10. Individualized dose optimization techniques were used for this CT. at 2223 Reported and signed by: Christian Cleveland MD Electronically Signed: Christian Cleveland MD at 22:22 EDT Tel , Service support ,
--- NOTE | 2020-12-02 20:45 | EKG12_ITS ---
Test Reason : OVERDOSE Blood Pressure : / mmHG Vent. Rate : 098 BPM Atrial Rate : 098 BPM P-R Int : 166 ms QRS Dur : 086 ms QT Int : 376 ms P-R-T Axes : 017 046 063 degrees QTc Int : 480 ms Normal sinus rhythm Prolonged QT Abnormal ECG Confirmed by ARTUR BINGHAM, LELA ([id number]), marketing editor REED FLORES ([id number]) on 12/04/2020 12:59:59 PM Referred By: KAROLINA Confirmed By:LELA SIDDIQUI MD
--- NOTE | 2020-12-02 20:50 | EX.ED.SAOD ---
HPI History of Present Illness Chief Complaint: Mental Health Narrative Narrative: Patient presenting with altered mental status. Apparently [facility] was called out for a psychiatric evaluation because the patient was walking around the hallways apparently seeing beehives. He does not remember this. He does have a bottle of oxycodone that was filled for 90 days and if you subtract the amount he should've taken he is missing 11 pills. He is not sure if he took too many pills. He denies remembering if he had drug or alcohol today. Patient states he feels normal at this time and is not hallucinating. He denies any chest pain or shortness of breath. EMS states that in route to [facility] patient became unresponsive and had agonal breathing. He required 3 doses of Narcan and he was awake and alert. [facility] Medical History Acute on chronic anemia Alcohol abuse Barretts esophagus Carotid stenosis Closed right hip fracture Depression Diabetes mellitus type 2 in nonobese DM2 (diabetes mellitus, type 2) Essential (primary) hypertension GERD (gastroesophageal reflux disease) History of CVA (cerebrovascular accident) (08/25/19) History of pneumothorax Hypocalcemia Hypomagnesemia Hypothyroidism Major depression with psychotic features New onset seizure Non-small cell lung cancer Osteoarthritis Peripheral neuropathy Toxic metabolic encephalopathy Vitamin D deficiency Home Medications citalopram 40 mg PO DAILY 12/15/16 [History Last Taken 11/23/19] levothyroxine 75 mcg PO DAILY 10/09/19 [History Last Taken 11/23/19] omeprazole 40 mg PO DAILY 10/09/19 [History Last Taken 11/23/19] calcium carbonate 500 mg PO BIDCM #60 tab 10/30/19 [Rx Last Taken 11/23/19] magnesium chloride 71.5 mg PO Q8H #90 tablet. 10/30/19 [Rx Last Taken 11/23/19] quetiapine 300 mg PO QHS #30 tab 10/30/19 [Rx Last Taken 11/22/19] tamsulosin 0.4 mg PO DAILY@1730 #30 cap 10/30/19 [Rx Last Taken 11/22/19] ergocalciferol (vitamin D2) 50,000 unit PO QWEEK 11/23/19 [History Last Taken 11/22/19] aspirin 81 mg PO DAILY@0800 #1 tab.chew 01/15/20 [Rx Last Taken Unknown] atorvastatin 40 mg PO DAILY #30 tab 01/15/20 [Rx Last Taken Unknown] nortriptyline 50 mg PO QHS 08/14/20 [History Last Taken Unknown] oxycodone 5 mg PO Q6H PRN PRN 08/14/20 [History Last Taken Unknown] sitagliptin 100 mg PO DAILY 08/14/20 [History Last Taken Unknown] melatonin 3 mg PO DAILY 10/28/20 [History Last Taken Unknown] midodrine 2.5 mg tablet 2.5 mg PO TID tab 11/26/20 [History Last Taken Unknown] potassium chloride 20 mEq tablet,extended release(part/cryst) 20 meq PO BID tab 11/27/20 [History Last Taken Unknown] Allergy/AdvReac Type Severity Reaction Status Date / Time No Known Allergies Allergy Verified 12/02/20 20:35 Family History Father Heart disease Surgical History History of hemiarthroplasty of right hip History of liver biopsy History of right hip replacement (~11/2019) Social History Smoking Status: Current every day smoker tobacco type: cigarettes ROS ROS ED Constitutional Constitutional ED: Denies chills, fever(s) or sweats Eyes Eyes: Denies blurry vision or change in vision ENT ENT ED: Denies ear pain, rhinorrhea or sore throat Cardiovascular Cardiovascular: Denies chest pain, palpitations or racing heartbeat Respiratory/Chest Respiratory/Chest: Reports other Details: Reported by EMS patient had agonal breathing prior to Narcan ; Denies cough, dyspnea or sputum Gastrointestinal Gastrointestinal: Denies abdominal pain, constipation, diarrhea or vomiting Genitourinary Genitourinary ED: Denies dysuria, hematuria or urinary frequency Musculoskeletal Musculoskeletal: Denies arthralgias, myalgias or neck pain Integumentary Denies abscess, Abrasions or rash Neurologic Neurologic: Denies headache(s), paresthesias or weakness Psychiatric Psychiatric: Denies anxiety, depression, suicidal ideation or suicidal thoughts Endocrine Endocrinology: Denies polydipsia or polyuria EXAM Physical Exam Const Vital Signs: 12/02/20 20:23 12/02/20 20:35 12/02/20 21:22 Temperature 98.1 F Temperature Source Temporal Pulse Rate 105 H 65 Respiratory Rate 20 H 20 H 17 Blood Pressure 138/100 H 120/86 H Blood Pressure Mean 112 97 Pulse Ox 88 100 100 Oxygen Delivery Method Room Air Nasal Cannula Room Air Oxygen Flow Rate (L/min) 2 12/02/20 22:00 Temperature Temperature Source Pulse Rate 95 Respiratory Rate 16 Blood Pressure 101/69 Blood Pressure Mean 79 Pulse Ox 100 Oxygen Delivery Method Nasal Cannula Oxygen Flow Rate (L/min) 2 Positive cachectic General Appearance ED: cachectic and NAD Nutritional Appearance: cachectic HEENT Negative for atraumatic or tenderness Eyes PERRL and EOMs intact bilaterally Chest Wall inspection of chest normal and palpation of chest normal Resp normal respiratory effort and clear to auscultation bilaterally Cardio regular rate and regular rhythm GI soft to palpation, non-tender and non-distended Extremity General Extremety ED: Yes edema, tenderness and other findings General Extremity: edema and other findings Neuro oriented x3 Sensorium / Orientation: alert Psych mental status grossly normal Skin Lesions: no lesions Rashes: no rashes MDM MDM MDM Narrative Medical decision making narrative: Patient presenting by EMS who stated that the patient was acting abnormally and hallucinating and that is why Kiana ANDREW was called. Patient is unsure whether he took too many pain medications but per EMS he required 3 doses of Narcan before he came around. He did have some agonal breathing prior to arrival. Currently he is awake and alert. He denies any pain or shortness of breath. He states he cannot recall most of the day. He does not remember if he has been drinking or did any drugs. Currently he is missing 11 oxycodone 5 mg tabs. EKG performed on arrival shows a sinus rhythm at 98 bpm without signs of ischemic change and prolonged QT at 480 ms as interpreted by myself. He does have a history of this per the record. Chest x-ray is interpreted by myself shows no acute cardiopulmonary process however there is persistent changes previously noted. Radiology does agree. CT brain interpreted by radiologist shows no acute intracranial process. Patient does recall that he received his prescription on the at 6 PM and had taken 1 when he received the medication and then another 1 before bed that evening. Patient states that on the and he also took 2 he believes. Given that he is missing 21 pills and took 6 there is 15 that are unaccounted for. Since this is oxycodone with 325 mg of acetaminophen this calculates out to 4875 milligrams of acetaminophen. This was discussed with poison control and discussed the amount of acetaminophen that he took at that his acetaminophen level is elevated at 35.5. And they recommended that since he cannot recall most of the day and if he took any other medications we should start N-acetylcysteine. They state that if we give the treatment for 12 hours we can recheck his lab work and if his acetaminophen levels are normal we can then discontinue the medication. CBC shows a white blood cell count of 10.7, hemoglobin 12.8, hematocrit 42.0, platelets 394. Electrolytes are normal however creatinine is elevated at 1.36 with a baseline of 0.8. LFTs are normal. EtOH is negative. Patient was discussed with hospitalist who is in agreement and will admit the patient for further treatment and monitoring. I did asked the patient if he did intentionally try to take this medication and overdose and he denies this. He also does not recall most of the day and is unsure what else he has taken. Impression: 1. Acetaminophen overdose 2. Opioid overdose 3. Acute kidney injury Lab Data Labs: Laboratory Results - last 24 hr 12/02/20 12/02/20 12/02/20 20:35 20:35 20:35 WBC 10.7 RBC 4.29 L Hgb 12.8 L Hct 42.0 MCV 97.9 H MCH 29.8 MCHC 30.5 L RDW Std Deviation 61.5 H RDW Coeff of Sophie 17.1 H Plt Count 394 MPV 10.4 Immature Gran % (Auto) 0.600 Neut % (Auto) 70.9 H Lymph % (Auto) 19.4 [place] % (Auto) 5.5 Eos % (Auto) 3.3 Baso % (Auto) 0.3 Absolute Neuts (auto) 7.6 Absolute Lymphs (auto) 2.07 Nucleated RBC % 0 Sodium 139 Potassium 4.8 Chloride 103 Carbon Dioxide 30.0 Anion Gap 6 BUN 18 Creatinine 1.36 H Estim Creat Clear Calc 53.74 Est GFR (MDRD) Af Amer 69 Est GFR (MDRD) Non-Af 57 L BUN/Creatinine Ratio 13.2 Glucose 140 H Calcium 9.3 Total Bilirubin 0.20 AST 23 ALT 10 L Alkaline Phosphatase 111 Total Protein 7.7 Albumin 3.1 L Globulin 4.6 H Albumin/Globulin Ratio 0.7 L Acetaminophen Ethyl Alcohol 4.0 12/02/20 20:35 WBC RBC Hgb Hct MCV MCH MCHC RDW Std Deviation RDW Coeff of Sophie Plt Count MPV Immature Gran % (Auto) Neut % (Auto) Lymph % (Auto) [place] % (Auto) Eos % (Auto) Baso % (Auto) Absolute Neuts (auto) Absolute Lymphs (auto) Nucleated RBC % Sodium Potassium Chloride Carbon Dioxide Anion Gap BUN Creatinine Estim Creat Clear Calc Est GFR (MDRD) Af Amer Est GFR (MDRD) Non-Af BUN/Creatinine Ratio Glucose Calcium Total Bilirubin AST ALT Alkaline Phosphatase Total Protein Albumin Globulin Albumin/Globulin Ratio Acetaminophen 35.5 H Ethyl Alcohol Radiography Diagnostic Testing: Radiology Impression Brain CT 12/02/20 20:45 IMPRESSION: No acute intracranial abnormality. Chronic changes as above. ASPECT 10. Individualized dose optimization techniques were used for this CT. at 2223 Reported and signed by: Christian Cleveland MD Electronically Signed: Christian Cleveland MD at 22:22 EDT Tel , Service support , Chest X-Ray 12/02/20 21:53 IMPRESSION: Persistent opacification of the left lung apex withconsolidation and calcification indicative of chronic disease but possibly still neoplastic on the CT scan. Probable small left pleural effusion is similar.. at 2219 Reported and signed by: Christian Cleveland MD Electronically Signed: Christian Cleveland MD at 22:18 EDT Tel , Service support , Discharge Plan Triage Chief Complaint: Mental Health ED Provider: Mario Nguyễn Dx/Rx/DC Orders Prescriptions: No Action midodrine 2.5 mg tablet 2.5 mg PO TID RF: 0 potassium chloride 20 mEq tablet,ER particles/crystals 20 meq PO BID RF: 0 citalopram 40 MG tablet 40 mg PO DAILY RF: 0 levothyroxine 75 MCG tablet 75 mcg PO DAILY RF: 0 omeprazole 40 MG capsule,delayed release(DR/EC) 40 mg PO DAILY RF: 0 tamsulosin 0.4 MG capsule 0.4 mg PO DAILY@1730 Qty: 30 RF: 0 calcium carbonate 500 MG tablet 500 mg PO BIDCM Qty: 60 RF: 0 quetiapine 300 MG tablet 300 mg PO QHS Qty: 30 RF: 0 magnesium chloride 71.5 MG tablet,delayed release (DR/EC) 71.5 mg PO Q8H Qty: 90 RF: 0 ergocalciferol (vitamin D2) 50,000 UNIT capsule 50,000 unit PO QWEEK RF: 0 atorvastatin 40 MG tablet 40 mg PO DAILY Qty: 30 RF: 0 aspirin 81 MG tablet,chewable 81 mg PO DAILY@0800 Qty: 1 RF: 0 nortriptyline 25 MG capsule 50 mg PO QHS RF: 0 oxycodone 5 MG tablet 5 mg PO Q6H PRN PRN (Reason: Pain 1-10 Or Fever) RF: 0 sitagliptin 100 MG tablet 100 mg PO DAILY RF: 0 melatonin 3 MG capsule 3 mg PO DAILY RF: 0 Primary Care Provider: Zurdo Esparza Referrals: Zurdo Esparza MD [Primary Care Provider] - Disposition Disposition: Acute Care [facility]
[2020-12-02 20:55] LABS: Absolute Lymphocyte Count 2.07 X10^3/uL (0.83-4.51); Absolute Neutrophil Count 7.6 X10^3/uL (2.0-7.7); Basophil# 0.03 X10^3/uL; Basophil% 0.3 % (0-1); Eosinophil# 0.35 X10^3/uL; Eosinophils% 3.3 % (0-5); Hemoglobin 12.8 g/dL (13.0-16.5); Lymphocyte # 2.07 X10^3/ul (0.83-4.51); Lymphocyte % 19.4 % (19-41); Mean Corp Hgb Conc 30.5 g/dL (32-36); Mean Corpuscular Hgb 29.8 pg (27.0-32.0); Mean Corpuscular Volume 97.9 fL (80-94); Mean Platelet Vol. 10.4 fl (6.2-12.0); Monocyte# 0.59 X10^3/uL; Monocyte% 5.5 % (0-10); NRBC Flagged by Analyzer 0 % (0-5); Neutrophil # 7.57 X10^3/uL (2.7-7.7); Neutrophil % 70.9 % (47-70); Platelet Count 394 K/mm3 (150-450); RBC Distribution Width CV 17.1 % (11.6-14.6); RBC Distribution Width SD 61.5 fl (35.1-43.9); Red Blood Count 4.29 M/mm3 (4.6-6.2); White Blood Count 10.7 K/mm3 (4.4-11.0)
[2020-12-02 21:22] VITALS: BP 120/86; PULSE 65; RESP 17; O2SAT 100
[2020-12-02 21:37] LABS: ALB/GLOB Ratio 0.7 RATIO (0.9-2.4); AST(SGOT) 23 U/L (15-37); Alanine Aminotransfer ALT/SGPT 10 U/L (16-61); Albumin, Serum 3.1 g/dL (3.2-5.0); Alkaline Phosphatase 111 U/L (45-117); Anion Gap 6 (5-15); BUN 18 mg/dL (7-18); BUN/Creat Ratio 13.2 RATIO (10-20); Calcium,Total 9.3 mg/dL (8.5-10.1); Chloride 103 mmol/L (98-107); Creatinine, Serum 1.36 mg/dL (0.70-1.30); EST Glomerular Filtration Rate 57 mL/min (>60); Est Glom Filt Rate - Afr Amer 69 mL/min (>60); Estimated Creatinine Clearance 53.74 ml/min; Globulin 4.6 g/dL (2.2-4.2); Glucose 140 mg/dL (74-106); Potassium 4.8 mmol/L (3.5-5.1); Protein, Total 7.7 g/dL (6.4-8.2); Sodium Level 139 mmol/L (136-145)
--- NOTE | 2020-12-02 21:53 | RAD_ITS ---
HISTORY: altered mental status EXAM: XR Chest 1 View: COMPARISON: October 28, 2020 FINDINGS: # of images incl. paperwork: 1 Opacification of the left lung apex with retraction and scarring persists. Additional comparison is made with CT scan of the chest from October 29, 2020 which demonstrates the consolidation within the left upper lobe. The right lung is well expanded. No right lung airspace disease is perceived on this x-ray. Pericardial effusion seen on the CT is not appreciated on the x-ray. Heart is not enlarged. Thoracic spondylosis remains Pulmonary vascularity is distinct. Possible small left pleural effusions. RAD/Chest 1 View (Portable) IMPRESSION: Persistent opacification of the left lung apex withconsolidation and calcification indicative of chronic disease but possibly still neoplastic on the CT scan. Probable small left pleural effusion is similar.. at 6689 Reported and signed by: Christian Cleveland MD Electronically Signed: Christian Cleveland MD at 22:18 EDT Tel , Service support ,
[2020-12-02 22:00] VITALS: BP 101/69; PULSE 95; RESP 16; O2SAT 100
[2020-12-02 22:00] LABS: Acetaminophen (Tylenol) Level 35.5 ug/mL (10.0-30.0)
--- NOTE | 2020-12-02 23:04 | PCM.HP.STD ---
HPI - General General Date of Admission: 12/02/20 Date of Service: 12/02/20 Chief Complaint: Change in mental status. HPI Narrative PATIENCE DEVINE, is a 55 M with past medical history as mentioned above presented to the emergency room because of change in mental status. At this time, patient is alert and oriented x2, disoriented to time. He was able to answer questions appropriately. He stated that he came to the emergency department because his neighbor found him confused, walking around and stated that he has been seeing beehives. Patient could not recall this event. This time, he has no other complaints. He was prescribed a prescription for Percocet and apparently, there was around 11 tablets missing. Patient does not number taking extra pills. At this time, he denied hallucination. He denied chest pain or shortness of breath. Reportedly, patient became unresponsive in route to the hospital, received 3 doses of Narcan and he woke up. In the emergency department, his vital signs were stable, was afebrile. Blood work was remarkable for hemoglobin of 12.8 g/dL, creatinine is 1.26, otherwise normal. LFT was unremarkable. He was found to have acetaminophen level of 35.5 ug/ml. Alcohol level was 4. Urine drug screen was ordered but patient did not urinate. CT scan brain showed no acute findings. Chest x-ray revealed left upper lobe opacification due to cancer, no change from previous chest x-ray. ER physician called [facility] Control [facility] and recommended to start patient on N-acetylcysteine. Patient is being admitted for acute acetaminophen toxicity and encephalopathy as well as acute kidney injury. [facility] Medical History (Updated 12/02/20 @ 23:[address] Anny Saeed MD) Alcohol abuse Barretts esophagus Carotid stenosis Closed right hip fracture Depression GERD (gastroesophageal reflux disease) History of CVA (cerebrovascular accident) (08/25/19) Hypothyroidism Major depression with psychotic features New onset seizure Non-small cell lung cancer Peripheral neuropathy Vitamin D deficiency Home Medications citalopram 40 mg PO DAILY 12/15/16 [History Last Taken 11/23/19] levothyroxine 75 mcg PO DAILY 10/09/19 [History Last Taken 11/23/19] omeprazole 40 mg PO DAILY 10/09/19 [History Last Taken 11/23/19] ergocalciferol (vitamin D2) 50,000 unit PO QWEEK 11/23/19 [History Last Taken 11/22/19] nortriptyline 50 mg PO QHS 08/14/20 [History Last Taken Unknown] oxycodone 5 mg PO Q6H PRN PRN 08/14/20 [History Last Taken Unknown] sitagliptin 100 mg PO DAILY 08/14/20 [History Last Taken Unknown] melatonin 3 mg PO DAILY 10/28/20 [History Last Taken Unknown] midodrine 2.5 mg tablet 2.5 mg PO TID tab 11/26/20 [History Last Taken Unknown] potassium chloride 20 mEq tablet,extended release(part/cryst) 20 meq PO BID tab 11/27/20 [History Last Taken Unknown] aspirin 81 mg PO DAILY@0800 12/02/20 [History Last Taken Unknown] atorvastatin 40 mg PO DAILY 12/02/20 [History Last Taken Unknown] calcium carbonate 500 mg PO BIDCM 12/02/20 [History Last Taken Unknown] magnesium chloride 71.5 mg PO Q8H 12/02/20 [History Last Taken Unknown] quetiapine 300 mg PO QHS 12/02/20 [History Last Taken Unknown] tamsulosin 0.4 mg PO DAILY@1730 12/02/20 [History Last Taken Unknown] Allergy/AdvReac Type Severity Reaction Status Date / Time No Known Allergies Allergy Verified 12/02/20 20:35 Family History Father Heart disease Surgical History History of hemiarthroplasty of right hip History of liver biopsy History of right hip replacement (~11/2019) Social History (Updated 12/02/20 @ 23:[address] Anny Saeed MD) Smoking Status: Current every day smoker tobacco type: cigarettes alcohol intake: former details: Patient stated that he quit drinking 6 months ago. ROS Constitutional Constitutional: Reports anorexia; Denies chills, fatigue, fever(s) or malaise Eyes Eyes: Denies blurry vision, change in eye color, change in vision, double vision or eye pain ENT HEENT: Denies ear pain, epistaxis, headache(s), nasal congestion, post nasal drip or sore throat Cardiovascular Cardiovascular: Denies chest pain, dyspnea on exertion, edema, lightheadedness, orthopnea, palpitations, paroxysmal nocturnal dyspnea or syncope Respiratory/Chest Respiratory/Chest: Denies cough, dyspnea, hemoptysis, productive cough, shortness of breath at rest, shortness of breath with exertion or wheezing Gastrointestinal Gastrointestinal: Denies abdominal pain, constipation, diarrhea, hematemesis, hematochezia, melena, nausea or vomiting Genitourinary Genitourinary: Denies burning urination, dysuria, hematuria, urinary hesitancy or urinary urgency Musculoskeletal Musculoskeletal: Denies arthralgias, back pain, joint pain, joint swelling, myalgias or neck pain Neurologic Neurologic: Denies confusion, dizziness, focal weakness, headache(s), numbness, paresthesias, seizures, tingling or tremor(s) Psychiatric Psychiatric: Denies anxiety, depression, hallucinations, homicidal ideation or suicidal ideation Endocrine Endocrinology: Denies change in body appearance, cold intolerance, heat intolerance, polydipsia or polyuria Hematologic/Lymphatic Hematologic/Lymphatic: Denies easy bleeding, easy bruising or lymphadenopathy Allergic/Immunologic Allergic/Immunologic: Denies itchy eyes, rhinitis, throat swelling, tongue swelling, hives, urticaria or wheezing Vital Signs Vital Signs Vital Signs: 12/02/20 20:23 12/02/20 20:35 12/02/20 21:22 Temperature 98.1 F Temperature Source Temporal Pulse Rate 105 H 65 Respiratory Rate 20 H 20 H 17 Blood Pressure 138/100 H 120/86 H Blood Pressure Mean 112 97 Pulse Ox 88 100 100 Oxygen Delivery Method Room Air Nasal Cannula Room Air Oxygen Flow Rate (L/min) 2 12/02/20 22:00 Temperature Temperature Source Pulse Rate 95 Respiratory Rate 16 Blood Pressure 101/69 Blood Pressure Mean 79 Pulse Ox 100 Oxygen Delivery Method Nasal Cannula Oxygen Flow Rate (L/min) 2 Weight Weight: 139 lb 12.369 oz Body Mass Index (BMI) 22.5 Physical Exam Const alert, no apparent distress and no limitations Constitutional Narrative: He is oriented x2, disoriented to time. General Appearance: cooperative, comfortable and well kempt HEENT normocephalic, head/scalp atraumatic and moist oral mucous membranes Head and Scalp: normocephalic and atraumatic Eyes PERRL, EOMs intact bilaterally, conjunctivae normal and no scleral icterus General Eye: normal appearance of both eyes Periorbital: periorbital findings normal Neck no lymphadenopathy, supple, no meningeal signs, no JVD and no carotid bruits General: trachea midline Thyroid: thyroid normal Resp normal respiratory effort, normal air movement and clear to auscultation bilaterally Auscultation: Negative for crackles, rales, rhonchi or wheezes Cardio regular rate, regular rhythm, S1 normal heart sound, S2 normal heart sound, no murmurs and no JVD Peripheral Pulses: pulses 2+ throughout GI normal to inspection, nondistended, normoactive bowel sounds, soft to palpation, non-tender and non-distended; Negative for hepatosplenomegaly Auscultation: normoactive bowel sounds Extremity normal to inspection, full ROM and no clubbing, cyanosis or edema Skin no rashes or lesions noted, no wounds and no petechiae Neuro oriented x3, CN's II-XII intact bilaterally and moves all extremities Sensorium / Orientation: alert Speech: speech normal Motor Exam: strength 5/5 throughout Psych mental status grossly normal, affect normal and denies hallucinations Lab / Micro Data Result Diagrams: 12/02/20 20:35 12/02/20 20:35 Labs: Laboratory Results - last 24 hr 12/02/20 12/02/20 12/02/20 20:35 20:35 20:35 WBC 10.7 RBC 4.29 L Hgb 12.8 L Hct 42.0 MCV 97.9 H MCH 29.8 MCHC 30.5 L RDW Std Deviation 61.5 H RDW Coeff of Sophie 17.1 H Plt Count 394 MPV 10.4 Immature Gran % (Auto) 0.600 Neut % (Auto) 70.9 H Lymph % (Auto) 19.4 [place] % (Auto) 5.5 Eos % (Auto) 3.3 Baso % (Auto) 0.3 Absolute Neuts (auto) 7.6 Absolute Lymphs (auto) 2.07 Nucleated RBC % 0 Sodium 139 Potassium 4.8 Chloride 103 Carbon Dioxide 30.0 Anion Gap 6 BUN 18 Creatinine 1.36 H Estim Creat Clear Calc 53.74 Est GFR (MDRD) Af Amer 69 Est GFR (MDRD) Non-Af 57 L BUN/Creatinine Ratio 13.2 Glucose 140 H Calcium 9.3 Total Bilirubin 0.20 AST 23 ALT 10 L Alkaline Phosphatase 111 Total Protein 7.7 Albumin 3.1 L Globulin 4.6 H Albumin/Globulin Ratio 0.7 L Acetaminophen Ethyl Alcohol 4.0 12/02/20 20:35 WBC RBC Hgb Hct MCV MCH MCHC RDW Std Deviation RDW Coeff of Sophie Plt Count MPV Immature Gran % (Auto) Neut % (Auto) Lymph % (Auto) [place] % (Auto) Eos % (Auto) Baso % (Auto) Absolute Neuts (auto) Absolute Lymphs (auto) Nucleated RBC % Sodium Potassium Chloride Carbon Dioxide Anion Gap BUN Creatinine Estim Creat Clear Calc Est GFR (MDRD) Af Amer Est GFR (MDRD) Non-Af BUN/Creatinine Ratio Glucose Calcium Total Bilirubin AST ALT Alkaline Phosphatase Total Protein Albumin Globulin Albumin/Globulin Ratio Acetaminophen 35.5 H Ethyl Alcohol Radiology Impression Brain CT 12/02/20 20:45 IMPRESSION: No acute intracranial abnormality. Chronic changes as above. ASPECT 10. Individualized dose optimization techniques were used for this CT. at 2223 Reported and signed by: Christian Cleveland MD Electronically Signed: Christian Cleveland MD at 22:22 EDT Tel , Service support , Chest X-Ray 12/02/20 21:53 IMPRESSION: Persistent opacification of the left lung apex withconsolidation and calcification indicative of chronic disease but possibly still neoplastic on the CT scan. Probable small left pleural effusion is similar.. at 2219 Reported and signed by: Christian Cleveland MD Electronically Signed: Christian Cleveland MD at 22:18 EDT Tel , Service support , Assessment & Plan Assessment/Plan (1) [place]O (acute kidney injury): (2) Encephalopathy: (3) Acetaminophen toxicity: (4) History of CVA (cerebrovascular accident): (5) Non-small cell lung cancer: (6) Essential (primary) hypertension: PLAN: This is a 55 years old male patient presented to the emergency room because of altered mental status, there was 11 pills of Percocet was missing from a prescription that he received around 1 year ago, found to have acute acetaminophen toxicity, acute kidney injury and encephalopathy and he is being admitted for treatment. #1 acute acetaminophen toxicity: Patient does not remember taking extra pills but there was 11 pills missing of Percocet. ER physician called [facility] Control Center and recommended to start patient on N-acetylcysteine. LFTs normal. Vital signs are stable. Plan: Admit to ICU, critical care monitoring, start N-acetylcysteine, IV fluids, Zofran as needed, Pepcid IV twice daily, critical care consult, repeat CBC, CMP and acetaminophen level tomorrow morning, check pro time and INR, PT OT evaluation and treatment. #2 acute kidney injury: Admission creatinine is 1.36, it was 0.85 on October,. Patient clinically dehydrated. Plan: IV fluids, input output chart, repeat CMP tomorrow morning. #3 encephalopathy: He is alert and oriented x2, disoriented to time. He mentioned that he quit drinking [address] scan showed no acute findings. Plan to monitor. #4 hyperlipidemia: Continue statins. #5 type 2 diabetes mellitus: ADA diet, Accu-Cheks every 6 hours, sliding scale, continue sitagliptin. #6 history of lung cancer: Stable, no acute issues. #7 hypothyroidism: Continue levothyroxine. #8 DVT prophylaxis: Subcu Lovenox. This note was generated with [employer] dictation software. It may contain incorrect words, spelling, and punctuation that were not noted in checking the note before signing. Visit Charges Inpatient E&M: 12193 Init Hosp L3
[2020-12-02 23:07] VITALS: BP 119/82; PULSE 89; PULSE 91; RESP 16; TEMP 36.7; O2SAT 100
--- NOTE | 2020-12-02 23:34 | ED.RN ---
patients brother updated and made aware of admission and condition at this time
[2020-12-03] VITALS (26 sets, daily range): BP systolic 112–164; BP diastolic 61–131; PULSE 88–123; RESP 16–27; TEMP 36.3–36.9; O2SAT 90–99; BMI 20.4; BMI 20.7
[2020-12-03 00:47] LABS: International Normalized Ratio 1.1; Prothrombin Time (Protime)PT. 13.4 SECONDS (11.7-14.9)
[2020-12-03 00:55] LABS: Lipase 36 U/L (73-393); Magnesium 1.3 mg/dL (1.6-2.6); Phosphorus 3.2 mg/dL (2.5-4.9)
[2020-12-03 04:50] LABS: Absolute Lymphocyte Count 1.07 X10^3/uL (0.83-4.51); Basophil# 0.03 X10^3/uL; Basophil% 0.3 % (0-1); Eosinophil# 0.29 X10^3/uL; Eosinophils% 2.4 % (0-5); Hematocrit 37.4 % (40-54); Hemoglobin 11.7 g/dL (13.0-16.5); Lymphocyte # 1.07 X10^3/ul (0.83-4.51); Lymphocyte % 8.9 % (19-41); Mean Corp Hgb Conc 31.3 g/dL (32-36); Mean Corpuscular Hgb 29.5 pg (27.0-32.0); Mean Corpuscular Volume 94.4 fL (80-94); Mean Platelet Vol. 10.2 fl (6.2-12.0); Monocyte# 0.56 X10^3/uL; Monocyte% 4.7 % (0-10); NRBC Flagged by Analyzer 0 % (0-5); Neutrophil # 9.98 X10^3/uL (2.7-7.7); Neutrophil % 83.3 % (47-70); Platelet Count 347 K/mm3 (150-450); RBC Distribution Width CV 16.4 % (11.6-14.6); RBC Distribution Width SD 57.6 fl (35.1-43.9); Red Blood Count 3.96 M/mm3 (4.6-6.2)
[2020-12-03 05:11] LABS: ALB/GLOB Ratio 0.6 RATIO (0.9-2.4); AST(SGOT) 13 U/L (15-37); Acetaminophen (Tylenol) Level 4.2 ug/mL (10.0-30.0); Alanine Aminotransfer ALT/SGPT 15 U/L (16-61); Albumin, Serum 2.5 g/dL (3.2-5.0); Alkaline Phosphatase 91 U/L (45-117); Anion Gap 8 (5-15); BUN 14 mg/dL (7-18); BUN/Creat Ratio 13.7 RATIO (10-20); Calcium,Total 8.6 mg/dL (8.5-10.1); Chloride 100 mmol/L (98-107); Creatinine, Serum 1.02 mg/dL (0.70-1.30); EST Glomerular Filtration Rate 80 mL/min (>60); Est Glom Filt Rate - Afr Amer 97 mL/min (>60); Estimated Creatinine Clearance 66.79 ml/min; Glucose 99 mg/dL (74-106); Potassium 3.6 mmol/L (3.5-5.1); Protein, Total 6.5 g/dL (6.4-8.2); Sodium Level 139 mmol/L (136-145)
[2020-12-03] MEDS: Levothyroxine 75 MCG Tablet PO (05:22)
[2020-12-03] MEDS: Midodrine HCl 5 MG Tablet 2.5 MG PO (05:23)
--- NOTE | 2020-12-03 05:44 | EX.PCM.CONCC ---
Assessment & Plan Assessment/Plan (1) Acetaminophen toxicity: PLAN: RECOMMENDATIONS: 1. Complete current bag of N-acetylcysteine and then discontinue medication. 2. Start nicotine replacement therapy. 3. Initiate CIWA protocol along with thiamine and folate repletion. 4. Continue as needed aerosol treatments. 5. Magnesium repletion as ordered. IMPRESSIONS: 1. Acetaminophen toxicity The patient presented to the hospital with encephalopathy and was subsequently found to have an elevated acetaminophen level. However, the exact time from ingestion was not known. Liver function profile was within normal limits as well as coags. N-acetylcysteine was subsequently started in the emergency department. The patient's acetaminophen level has now normalized. Plan to complete his current bag of N-acetylcysteine, which is currently infusing, after which time the medication can be discontinued. 2. Encephalopathy Suspect related to opiate overdose given positive effects from Narcan. The patient appears to be mentating at his baseline without any further neurologic sequelae. 3. Acute kidney injury Likely prerenal in etiology. Continue to monitor urine output. No current indication for renal replacement therapy. 4. Hypomagnesemia Electrolyte repletion as ordered. Recheck levels in the morning. 5. Chronic alcohol and tobacco dependency The patient does have a longstanding alcohol and tobacco abuse history. He does have a history of alcohol withdrawal as well. He is currently demonstrating some acute signs of alcohol withdrawal. Therefore, the patient will be started on the CIWA protocol with as needed Ativan along with thiamine and folate. I personally spent 4 minutes discussing the deleterious effects of continued tobacco use with the patient, including modalities which could utilize to achieve a smoke-free lifestyle. Nicotine replacement therapy will be offered to the patient while admitted to the hospital. 6. 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 Continue home medications as indicated. This note was generated with [employer] dictation software. It may contain incorrect words, spelling, and punctuation that were not noted in checking the note before signing. HPI Consult Data Date of Consult: 12/03/20 HPI Narrative Reason for Consultation: Acute acetaminophen toxicity HPI Narrative: The patient is a 55-year-old male, with a history as outlined below, who presented to the emergency department on December 02 with altered mentation. The patient does have a history of prior CVA, non-small cell lung cancer with left Pancoast tumor followed by Dr. Harper, questionable history of COPD, tobacco dependency, Breen's esophagus and history of alcohol abuse. The patient was also recently admitted for several days in October 2020 with generalized weakness and debility. The patient does continue to smoke between 1.5 and 2 packs of cigarettes per day. He also reports rather heavy consumption of beer daily, but denies any hard liquor intake. On presentation to the emergency department, the patient was noted to be afebrile and hemodynamically stable. Laboratory evaluation revealed a normal white blood cell count. Coagulation profile was within normal limits. Chemistry profile revealed a creatinine of 1.36. Magnesium was low at 1.3. AST and ALT were within normal limits. Acetaminophen level was elevated at 35. Toxicology screen was positive for opiates and cannabinoids. Alcohol level was negative. CT head revealed no acute intracranial abnormality. Chest x-ray revealed persistent opacification of the left upper lobe. Per ED documentation, there was concern that the patient may have taken an excess amount of his oxycodone. He did receive a total of 3 doses of Narcan while in route to the hospital. The patient was subsequently placed on N-acetylcysteine and admitted to the medical intensive care unit for further management. [facility] Medical History Alcohol abuse Barretts esophagus Carotid stenosis Closed right hip fracture Depression GERD (gastroesophageal reflux disease) History of CVA (cerebrovascular accident) (08/25/19) Hypothyroidism Major depression with psychotic features New onset seizure Non-small cell lung cancer Peripheral neuropathy Vitamin D deficiency Home Medications citalopram 40 mg PO DAILY 12/15/16 [History Last Taken 11/23/19] levothyroxine 75 mcg PO DAILY 10/09/19 [History Last Taken 11/23/19] omeprazole 40 mg PO DAILY 10/09/19 [History Last Taken 11/23/19] ergocalciferol (vitamin D2) 50,000 unit PO QWEEK 11/23/19 [History Last Taken 11/22/19] nortriptyline 50 mg PO QHS 08/14/20 [History Last Taken Unknown] oxycodone 5 mg PO Q6H PRN PRN 08/14/20 [History Last Taken Unknown] sitagliptin 100 mg PO DAILY 08/14/20 [History Last Taken Unknown] melatonin 3 mg PO DAILY 10/28/20 [History Last Taken Unknown] midodrine 2.5 mg tablet 2.5 mg PO TID tab 11/26/20 [History Last Taken Unknown] potassium chloride 20 mEq tablet,extended release(part/cryst) 20 meq PO BID tab 11/27/20 [History Last Taken Unknown] aspirin 81 mg PO DAILY@0800 12/02/20 [History Last Taken Unknown] atorvastatin 40 mg PO DAILY 12/02/20 [History Last Taken Unknown] calcium carbonate 500 mg PO BIDCM 12/02/20 [History Last Taken Unknown] magnesium chloride 71.5 mg PO Q8H 12/02/20 [History Last Taken Unknown] quetiapine 300 mg PO QHS 12/02/20 [History Last Taken Unknown] tamsulosin 0.4 mg PO DAILY@1730 12/02/20 [History Last Taken Unknown] Allergy/AdvReac Type Severity Reaction Status Date / Time No Known Allergies Allergy Verified 12/02/20 20:35 Family History Father Heart disease Surgical History History of hemiarthroplasty of right hip History of liver biopsy History of right hip replacement (~11/2019) Social History Smoking Status: Current every day smoker tobacco type: cigarettes alcohol intake: former details: Patient stated that he quit drinking 6 months ago. ROS Constitutional Constitutional: Denies body ache(s) or chills Eyes Eyes: Denies blurry vision or change in vision ENT HEENT: Denies dizziness, dysphagia or epistaxis Cardiovascular Cardiovascular: Denies chest pain Respiratory/Chest Respiratory/Chest: Reports cough Gastrointestinal Gastrointestinal: Denies abdominal pain, diarrhea or vomiting Genitourinary Genitourinary: Reports difficulty urinating Musculoskeletal Musculoskeletal: Reports joint pain; Denies arthralgias Integumentary Integumentary: Denies lesions or rash Neurologic Neurologic: Reports confusion; Denies abnormal gait Psychiatric Psychiatric: Denies anxiety or depression Endocrine Endocrinology: Denies fatigue Hematologic/Lymphatic Hematologic/Lymphatic: Denies easy bleeding or easy bruising Physical Exam Const alert and no apparent distress General Appearance: cooperative HEENT normocephalic and head/scalp atraumatic Eyes PERRL, EOMs intact bilaterally and conjunctivae normal Neck supple General: trachea midline Resp normal respiratory effort Auscultation: Negative for rales, rhonchi or wheezes Cardio S1 normal heart sound and S2 normal heart sound Rate: tachycardic GI normal to inspection, nondistended, normoactive bowel sounds Extremity no clubbing, cyanosis or edema Skin no rashes or lesions noted Neuro CN's II-XII intact bilaterally, moves all extremities and no focal motor deficits Psych cooperative and affect normal Lab / Micro Data Result Diagrams: 12/03/20 04:35 12/03/20 04:35 Labs: Laboratory Results - last 24 hr 12/02/20 12/02/20 12/02/20 20:35 20:35 20:35 WBC 10.7 RBC 4.29 L Hgb 12.8 L Hct 42.0 MCV 97.9 H MCH 29.8 MCHC 30.5 L RDW Std Deviation 61.5 H RDW Coeff of Sophie 17.1 H Plt Count 394 MPV 10.4 Immature Gran % (Auto) 0.600 Neut % (Auto) 70.9 H Lymph % (Auto) 19.4 [place] % (Auto) 5.5 Eos % (Auto) 3.3 Baso % (Auto) 0.3 Absolute Neuts (auto) 7.6 Absolute Lymphs (auto) 2.07 Nucleated RBC % 0 PT INR Sodium 139 Potassium 4.8 Chloride 103 Carbon Dioxide 30.0 Anion Gap 6 BUN 18 Creatinine 1.36 H Estim Creat Clear Calc 53.74 Est GFR (MDRD) Af Amer 69 Est GFR (MDRD) Non-Af 57 L BUN/Creatinine Ratio 13.2 Glucose 140 H Calcium 9.3 Phosphorus Magnesium Total Bilirubin 0.20 AST 23 ALT 10 L Alkaline Phosphatase 111 Total Protein 7.7 Albumin 3.1 L Globulin 4.6 H Albumin/Globulin Ratio 0.7 L Lipase Acetaminophen Ethyl Alcohol 4.0 12/02/20 12/03/20 12/03/20 20:35 00:30 00:30 WBC RBC Hgb Hct MCV MCH MCHC RDW Std Deviation RDW Coeff of Sophie Plt Count MPV Immature Gran % (Auto) Neut % (Auto) Lymph % (Auto) [place] % (Auto) Eos % (Auto) Baso % (Auto) Absolute Neuts (auto) Absolute Lymphs (auto) Nucleated RBC % PT 13.4 INR 1.1 Sodium Potassium Chloride Carbon Dioxide Anion Gap BUN Creatinine Estim Creat Clear Calc Est GFR (MDRD) Af Amer Est GFR (MDRD) Non-Af BUN/Creatinine Ratio Glucose Calcium Phosphorus 3.2 Magnesium 1.3 L Total Bilirubin AST ALT Alkaline Phosphatase Total Protein Albumin Globulin Albumin/Globulin Ratio Lipase 36 L Acetaminophen 35.5 H Ethyl Alcohol 12/03/20 12/03/20 12/03/20 04:35 04:35 04:35 WBC 12.0 H RBC 3.96 L Hgb 11.7 L Hct 37.4 L MCV 94.4 H MCH 29.5 MCHC 31.3 L RDW Std Deviation 57.6 H RDW Coeff of Sophie 16.4 H Plt Count 347 MPV 10.2 Immature Gran % (Auto) 0.400 Neut % (Auto) 83.3 H Lymph % (Auto) 8.9 L [place] % (Auto) 4.7 Eos % (Auto) 2.4 Baso % (Auto) 0.3 Absolute Neuts (auto) 10.0 H Absolute Lymphs (auto) 1.07 Nucleated RBC % 0 PT INR Sodium 139 Potassium 3.6 Chloride 100 Carbon Dioxide 31.0 Anion Gap 8 BUN 14 Creatinine 1.02 Estim Creat Clear Calc 66.79 Est GFR (MDRD) Af Amer 97 Est GFR (MDRD) Non-Af 80 BUN/Creatinine Ratio 13.7 Glucose 99 Calcium 8.6 Phosphorus Magnesium Total Bilirubin 0.20 AST 13 L ALT 15 L Alkaline Phosphatase 91 Total Protein 6.5 Albumin 2.5 L Globulin 4.0 Albumin/Globulin Ratio 0.6 L Lipase Acetaminophen 4.2 L Ethyl Alcohol Radiology Impression Brain CT 12/02/20 20:45 IMPRESSION: No acute intracranial abnormality. Chronic changes as above. ASPECT 10. Individualized dose optimization techniques were used for this CT. at 2223 Reported and signed by: Christian Cleveland MD Electronically Signed: Christian Cleveland MD at 22:22 EDT Tel , Service support , Chest X-Ray 12/02/20 21:53 IMPRESSION: Persistent opacification of the left lung apex withconsolidation and calcification indicative of chronic disease but possibly still neoplastic on the CT scan. Probable small left pleural effusion is similar.. at 2219 Reported and signed by: Christian Cleveland MD Electronically Signed: Christian Cleveland MD at 22:18 EDT Tel , Service support , Charges/Coding Visit Charges Inpatient E&M: 91901 Init Hosp L3 Behavior Interventions Behavior Intervention: 52245 Smoking Cessation 3-10 min
[2020-12-03 06:25] LABS: Magnesium 1.3 mg/dL (1.6-2.6); Phosphorus 3.3 mg/dL (2.5-4.9)
[2020-12-03 06:58] LABS: Amphetamine Urine VISTA NEGATIVE (<1000 ng/mL); Barbiturate Urine VISTA NEGATIVE (< 200 ng/mL); Benzodiazepine Urine VISTA NEGATIVE (< 200 ng/mL); Cocaine Urine VISTA NEGATIVE (< 300 ng/mL); Ecstacy Urine VISTA NEGATIVE (< 500 ng/mL); Methadone Urine VISTA NEGATIVE (< 300 ng/mL); PCP Urine VISTA NEGATIVE (< 25 ng/mL); THC Urine VISTA POSITIVE (< 50 ng/mL); Vista UDS pH Range 5
[2020-12-03] MEDS: LORazepam 1 MG Tablet 2 MG PO (09:33)
[2020-12-03] MEDS: Aspirin 81 MG TAB.CHEW PO (09:33)
[2020-12-03] MEDS: 0.9% Saline Lock 10 ML Syringe IV ×6 (09:36→18:09)
--- NOTE | 2020-12-03 09:37 | NT.THERAPY_ITS ---
Medical Nutrition Therapy - History Nutrition Services has been consulted to:: Manage nutrient details of diet order Current diet/nutrition support order:: clear liquids - Anthropometric Measurements Height:: 5 ft 7 in Weight:: 60.1 kg Body Mass Index (BMI):: 20.7 - Relevant Labs Relevant Labs:: WBC 12.0 K/mm3 (4.4-11.0) H 12/03/20 04:35 RBC 3.96 M/mm3 (4.6-6.2) L 12/03/20 04:35 Hgb 11.7 g/dL (13.0-16.5) L 12/03/20 04:35 Hct 37.4 % (40-54) L 12/03/20 04:35 MCV 94.4 fL (80-94) H 12/03/20 04:35 MCHC 31.3 g/dL (32-36) L 12/03/20 04:35 RDW Std Deviation 57.6 fl (35.1-43.9) H 12/03/20 04:35 RDW Coeff of Sophie 16.4 % (11.6-14.6) H 12/03/20 04:35 Neut % (Auto) 83.3 % (47-70) H 12/03/20 04:35 Lymph % (Auto) 8.9 % (19-41) L 12/03/20 04:35 Absolute Neuts (auto) 10.0 X10^3/uL (2.0-7.7) H 12/03/20 04:35 Creatinine 1.36 mg/dL (0.70-1.30) H 12/02/20 20:35 Est GFR (MDRD) Non-Af 57 mL/min (>60) L 12/02/20 20:35 Glucose 140 mg/dL (74-106) H 12/02/20 20:35 Magnesium 1.3 mg/dL (1.6-2.6) L 12/03/20 04:35 AST 13 U/L (15-37) L 12/03/20 04:35 ALT 15 U/L (16-61) L 12/03/20 04:35 Albumin 2.5 g/dL (3.2-5.0) L 12/03/20 04:35 Globulin 4.6 g/dL (2.2-4.2) H 12/02/20 20:35 Albumin/Globulin Ratio 0.6 RATIO (0.9-2.4) L 12/03/20 04:35 Lipase 36 U/L (73-393) L 12/03/20 00:30 - Assessment Food and Nutrient Intake: Tolerating clear liquids. Pt states he normally eats 1 meal/day because he does not have a big appetite. Pt feels he has been losing wt, unsure of amount. Per EMR, wt was 164.0# on 11/23/19 and admission wt was 13 0.3#-33.7#/20.5% wt loss x 1year is significant for malnutrition. - Nutrition Diagnosis: Clinical Problem Chronic Disease or Condition Related Malnutrition Clinical Problem - Etiology: moderate, chronic malnutrition r/t inadequate energy intake w/ increased energy needs d/t lung cancer, debility Clinical Problem - Signs/Symptoms: as evidenced by estimated PO intake meeting <75% of nutritional needs >3 months, unintentional wt loss of 33.7#/20.5% x 1 year, moderate muscle wasting/fat loss. - Protein Calorie Malnutrition Evidence of Malnutrition Exists: Yes Moderate Protein Calorie Malnutrition: Chronic - Nutrition Intervention Nutrition Prescription: [id number] calories/day (1.3xRMR). 60-70 g protein/day (1.0g/kg). 1800mL fluid/day (30mL/kg) - Food / Nutrient Delivery Interventions Summary of nutrition intervention:: Provide oral nutrition supplement Nutrition support ordered as / adjusted to:: advance diet as tolerated to regular; will add ensure clear w/ medpass- adjust to ensure enlive when PO diet advanced. - MNT Monitoring Active Nutrition Patient: Yes Nutrition Status: Requires Follow Up 3-5 Days
[2020-12-03] MEDS: LORazepam 2 MG/ML Syringe IV ×7 (11:03→20:20)
--- NOTE | 2020-12-03 11:04 | CASEMGMT ---
RN CM in to pt room for assessment. Nurse Amparo in giving pt medication. Pt disoriented, unable to state his name. Pt picking at the blankets, speaking but sentences are not coherent. RN CM to follow.
[2020-12-03] MEDS: Phenobarbital 32.4 MG Tablet 64.8 MG PO ×3 (11:32→22:16)
[2020-12-03 11:38] LABS: Bedside Glucose 108 mg/dL (70-110)
--- NOTE | 2020-12-03 12:52 | CASEMGMT ---
Pt screened with [facility] Palliative Care Screening Tool due to strata 3, pt did not meet criteria.
--- NOTE | 2020-12-03 13:02 | PN.HOSP_ITS ---
Subjective Subjective Patient seen and examined. He was admitted for altered mental status. Initially managed for Tylenol toxicity due to accidental ingestion. He is on N- acetylcysteine. He has no complaints this morning and feels well. He says he is not sure how many pills he took and his IV showed that he took several pills but all he knows is that his neighbor saw him pass out and called the EMS. Review of systems is otherwise negative. Objective Data Objective Data Vital Signs: Vital Signs Temp Pulse Resp BP Pulse Ox 97.4 F L 98 16 126/78 H 97 12/03/20 04:00 12/03/20 07:00 12/03/20 07:00 12/03/20 07:00 12/03/20 07:00 Oxygen Flow Rate (L/min) 2 Oxygen Delivery Method Nasal Cannula Weight: 132 lb 7.965 oz Body Mass Index (BMI) 20.7 Intake & Output: Intake and Output for Last 24 Hours 12/01/20 12/02/20 12/03/20 23:59 23:59 23:59 Intake Total 991.10 / 991.10 Output Total 1500 / 1500 Balance -508.90 / -508.90 Lab / Micro Data Result Diagrams: 12/03/20 04:35 12/03/20 04:35 Labs: Laboratory Results - last 24 hr 12/02/20 12/02/20 12/02/20 20:35 20:35 20:35 WBC 10.7 RBC 4.29 L Hgb 12.8 L Hct 42.0 MCV 97.9 H MCH 29.8 MCHC 30.5 L RDW Std Deviation 61.5 H RDW Coeff of Sophie 17.1 H Plt Count 394 MPV 10.4 Immature Gran % (Auto) 0.600 Neut % (Auto) 70.9 H Lymph % (Auto) 19.4 [place] % (Auto) 5.5 Eos % (Auto) 3.3 Baso % (Auto) 0.3 Absolute Neuts (auto) 7.6 Absolute Lymphs (auto) 2.07 Nucleated RBC % 0 PT INR Sodium 139 Potassium 4.8 Chloride 103 Carbon Dioxide 30.0 Anion Gap 6 BUN 18 Creatinine 1.36 H Estim Creat Clear Calc 53.74 Est GFR (MDRD) Af Amer 69 Est GFR (MDRD) Non-Af 57 L BUN/Creatinine Ratio 13.2 Glucose 140 H Calcium 9.3 Phosphorus Magnesium Total Bilirubin 0.20 AST 23 ALT 10 L Alkaline Phosphatase 111 Total Protein 7.7 Albumin 3.1 L Globulin 4.6 H Albumin/Globulin Ratio 0.7 L Lipase Urine Opiates Screen Urine Methadone Screen Acetaminophen Ur Barbiturates Screen Ur Phencyclidine Scrn Ur Amphetamines Screen U Methamphetamin-MDMA U Benzodiazepines Scrn Urine Cocaine Screen U Cannabinoids Screen Ur Drug Screen Comment Ethyl Alcohol 4.0 POC Glucose 12/02/20 12/03/20 12/03/20 20:35 00:30 00:30 WBC RBC Hgb Hct MCV MCH MCHC RDW Std Deviation RDW Coeff of Sophie Plt Count MPV Immature Gran % (Auto) Neut % (Auto) Lymph % (Auto) [place] % (Auto) Eos % (Auto) Baso % (Auto) Absolute Neuts (auto) Absolute Lymphs (auto) Nucleated RBC % PT 13.4 INR 1.1 Sodium Potassium Chloride Carbon Dioxide Anion Gap BUN Creatinine Estim Creat Clear Calc Est GFR (MDRD) Af Amer Est GFR (MDRD) Non-Af BUN/Creatinine Ratio Glucose Calcium Phosphorus 3.2 Magnesium 1.3 L Total Bilirubin AST ALT Alkaline Phosphatase Total Protein Albumin Globulin Albumin/Globulin Ratio Lipase 36 L Urine Opiates Screen Urine Methadone Screen Acetaminophen 35.5 H Ur Barbiturates Screen Ur Phencyclidine Scrn Ur Amphetamines Screen U Methamphetamin-MDMA U Benzodiazepines Scrn Urine Cocaine Screen U Cannabinoids Screen Ur Drug Screen Comment Ethyl Alcohol POC Glucose 12/03/20 12/03/20 12/03/20 00:37 04:35 04:35 WBC 12.0 H RBC 3.96 L Hgb 11.7 L Hct 37.4 L MCV 94.4 H MCH 29.5 MCHC 31.3 L RDW Std Deviation 57.6 H RDW Coeff of Sophie 16.4 H Plt Count 347 MPV 10.2 Immature Gran % (Auto) 0.400 Neut % (Auto) 83.3 H Lymph % (Auto) 8.9 L [place] % (Auto) 4.7 Eos % (Auto) 2.4 Baso % (Auto) 0.3 Absolute Neuts (auto) 10.0 H Absolute Lymphs (auto) 1.07 Nucleated RBC % 0 PT INR Sodium 139 Potassium 3.6 Chloride 100 Carbon Dioxide 31.0 Anion Gap 8 BUN 14 Creatinine 1.02 Estim Creat Clear Calc 66.79 Est GFR (MDRD) Af Amer 97 Est GFR (MDRD) Non-Af 80 BUN/Creatinine Ratio 13.7 Glucose 99 Calcium 8.6 Phosphorus Magnesium Total Bilirubin 0.20 AST 13 L ALT 15 L Alkaline Phosphatase 91 Total Protein 6.5 Albumin 2.5 L Globulin 4.0 Albumin/Globulin Ratio 0.6 L Lipase Urine Opiates Screen Urine Methadone Screen Acetaminophen Ur Barbiturates Screen Ur Phencyclidine Scrn Ur Amphetamines Screen U Methamphetamin-MDMA U Benzodiazepines Scrn Urine Cocaine Screen U Cannabinoids Screen Ur Drug Screen Comment Ethyl Alcohol POC Glucose 108 12/03/20 12/03/20 12/03/20 04:35 04:35 06:30 WBC RBC Hgb Hct MCV MCH MCHC RDW Std Deviation RDW Coeff of Sophie Plt Count MPV Immature Gran % (Auto) Neut % (Auto) Lymph % (Auto) [place] % (Auto) Eos % (Auto) Baso % (Auto) Absolute Neuts (auto) Absolute Lymphs (auto) Nucleated RBC % PT INR Sodium Potassium Chloride Carbon Dioxide Anion Gap BUN Creatinine Estim Creat Clear Calc Est GFR (MDRD) Af Amer Est GFR (MDRD) Non-Af BUN/Creatinine Ratio Glucose Calcium Phosphorus 3.3 Magnesium 1.3 L Total Bilirubin AST ALT Alkaline Phosphatase Total Protein Albumin Globulin Albumin/Globulin Ratio Lipase Urine Opiates Screen POSITIVE H Urine Methadone Screen NEGATIVE Acetaminophen 4.2 L Ur Barbiturates Screen NEGATIVE Ur Phencyclidine Scrn NEGATIVE Ur Amphetamines Screen NEGATIVE U Methamphetamin-MDMA NEGATIVE U Benzodiazepines Scrn NEGATIVE Urine Cocaine Screen NEGATIVE U Cannabinoids Screen POSITIVE H Ur Drug Screen Comment Ethyl Alcohol POC Glucose Radiography Diagnostic Testing: Radiology Impression Brain CT 12/02/20 20:45 IMPRESSION: No acute intracranial abnormality. Chronic changes as above. ASPECT 10. Individualized dose optimization techniques were used for this CT. at 2223 Reported and signed by: Christian Cleveland MD Electronically Signed: Christian Cleveland MD at 22:22 EDT Tel , Service support , Chest X-Ray 12/02/20 21:53 IMPRESSION: Persistent opacification of the left lung apex withconsolidation and calcification indicative of chronic disease but possibly still neoplastic on the CT scan. Probable small left pleural effusion is similar.. at 2219 Reported and signed by: Christian Cleveland MD Electronically Signed: Christian Cleveland MD at 22:18 EDT Tel , Service support , Physical Exam Const alert, oriented x3 and no apparent distress Exam Limitations: no limitations HEENT head/scalp atraumatic and moist oral mucous membranes Head and Scalp: normocephalic Eyes PERRL, EOMs intact bilaterally and conjunctivae normal Neck no lymphadenopathy, supple and no JVD Resp normal respiratory effort, no retractions, no use of accessory muscles and clear to auscultation bilaterally Cardio regular rate, regular rhythm, S1 normal heart sound, S2 normal heart sound and no murmurs GI normal to inspection, nondistended, normoactive bowel sounds, non-tender and non-distended Extremity normal to inspection, full ROM and no clubbing, cyanosis or edema Peripheral Pulses: Yes pulses 2+ throughout Skin no rashes or lesions noted Neuro oriented x3 Sensorium / Orientation: awake and alert Psych affect normal Assessment & Plan Assessment/Plan (1) EVERARDO (acute kidney injury): (2) Encephalopathy: (3) Acetaminophen toxicity: PLAN: #Acute acetaminophen toxicity * Thought to have taken about 11 tablets of Percocet. He was started on N- acetylcysteine. * He has been hydrated with IV fluids as well. He has remained stable. * critical care on board * Liver enzymes have remained WNL * N acetyl cystein discontinued after current bag is finished. * #Acute metabolic encephalopathy due to tylenol overdose * Resolved. Patient is alert and oriented. * Of note he has a history of alcohol intake as well though he says he has not drank in several months. CT of the brain was negative. * #Hyperlipidemia: On statins #EVERARDO: Creatinine was 1.36 on admission. Resolved. Creatinine is down to 1.02. Hypomagnesemia: Magnesium is 1.3. Will replace. #Type 2 diabetes mellitus: On sitagliptin. Insulin sliding scale. Checks AC at bedtime. #History of lung cancer: Stable #Hypothyroidism: On Synthroid #History of alcohol use disorder * States he has not drank in a few months. Started on CIWA protocol with t hiamine, multivitamin and folic acid repletion today. * #Nicotine dependence: Nicotine patch #DVT prophylaxis: Lovenox Visit Charges Inpatient E&M: 45118 Subs Hosp L3
[2020-12-03] MEDS: Famotidine 200 MG/20 ML MDV 20 MG in 0.9% Normal Saline (Pres. free 8 ML 300 MG IV ×2 (14:09→22:18)
[2020-12-03 14:31] LABS: Bedside Glucose 95 mg/dL (70-110)
[2020-12-03 14:35] LABS: Bedside Glucose 80 mg/dL (70-110)
[2020-12-03 18:21] LABS: Bedside Glucose 104 mg/dL (70-110)
[2020-12-03] MEDS: Magnesium Sulfate 4gm/100mL 4 GM/100 ML IV.SOLN. IV (22:16)
[2020-12-03] MEDS: MELATONIN 3 MG TABLET PO (22:17)
[2020-12-04] VITALS (21 sets, daily range): BP systolic 126–166; BP diastolic 73–126; PULSE 98–112; RESP 18–30; TEMP 36.3–36.7; O2SAT 90–99
[2020-12-04] MEDS: Phenobarbital 32.4 MG Tablet 64.8 MG PO ×6 (01:00→20:34)
[2020-12-04] MEDS: LORazepam 1 MG Tablet 2 MG PO (01:00)
[2020-12-04 03:49] LABS: Absolute Lymphocyte Count 0.89 X10^3/uL (0.83-4.51); Absolute Neutrophil Count 11.8 X10^3/uL (2.0-7.7); Basophil# 0.04 X10^3/uL; Basophil% 0.3 % (0-1); Eosinophil# 0.15 X10^3/uL; Eosinophils% 1.1 % (0-5); Hematocrit 37.1 % (40-54); Hemoglobin 12.2 g/dL (13.0-16.5); Lymphocyte # 0.89 X10^3/ul (0.83-4.51); Lymphocyte % 6.5 % (19-41); Mean Corp Hgb Conc 32.9 g/dL (32-36); Mean Corpuscular Volume 91.2 fL (80-94); Mean Platelet Vol. 10.2 fl (6.2-12.0); Monocyte# 0.68 X10^3/uL; NRBC Flagged by Analyzer 0 % (0-5); Neutrophil # 11.77 X10^3/uL (2.7-7.7); Neutrophil % 86.7 % (47-70); Platelet Count 347 K/mm3 (150-450); RBC Distribution Width CV 15.9 % (11.6-14.6); RBC Distribution Width SD 53.7 fl (35.1-43.9); Red Blood Count 4.07 M/mm3 (4.6-6.2); White Blood Count 13.6 K/mm3 (4.4-11.0)
[2020-12-04] MEDS: LORazepam 2 MG/ML Syringe IV ×9 (03:57→23:06)
[2020-12-04 04:47] LABS: ALB/GLOB Ratio 0.6 RATIO (0.9-2.4); AST(SGOT) 16 U/L (15-37); Alanine Aminotransfer ALT/SGPT 9 U/L (16-61); Albumin, Serum 2.6 g/dL (3.2-5.0); Alkaline Phosphatase 97 U/L (45-117); Anion Gap 6 (5-15); BUN 6 mg/dL (7-18); BUN/Creat Ratio 7.4 RATIO (10-20); Calcium,Total 8.9 mg/dL (8.5-10.1); Chloride 96 mmol/L (98-107); Creatinine, Serum 0.81 mg/dL (0.70-1.30); EST Glomerular Filtration Rate 105 mL/min (>60); Est Glom Filt Rate - Afr Amer 127 mL/min (>60); Estimated Creatinine Clearance 80.55 ml/min; Globulin 4.1 g/dL (2.2-4.2); Glucose 93 mg/dL (74-106); Potassium 2.8 mmol/L (3.5-5.1); Protein, Total 6.7 g/dL (6.4-8.2); Sodium Level 137 mmol/L (136-145)
--- NOTE | 2020-12-04 05:52 | PCM.PN.INT ---
Assessment & Plan Assessment/Plan (1) Acetaminophen toxicity: PLAN: RECOMMENDATIONS: 1. Continue phenobarbital taper and as needed Ativan per [facility] protocol. 2. Continue thiamine and folate repletion. 3. Electrolyte repletion as needed. 4. Continue nicotine replacement therapy. 5. Continue aerosol treatments as ordered. IMPRESSIONS: 1. Acetaminophen toxicity Resolved. The patient presented to the hospital with encephalopathy and was subsequently found to have an elevated acetaminophen level. However, the exact time from ingestion was not known. Liver function profile was within normal limits as well as coags. N-acetylcysteine was subsequently started in the emergency department. The patient's acetaminophen level subsequently normalized and the N-acetylcysteine was discontinued. 2. Encephalopathy Suspect related to opiate overdose given positive effects from Narcan. The patient appears to be mentating at his baseline without any further neurologic sequelae. 3. Acute alcohol withdrawal Continue management per [facility] protocol with phenobarbital taper and as needed Ativan. Continue thiamine and folate repletion. 4. Acute kidney injury Resolved. Likely prerenal in etiology. Continue to monitor urine output. No current indication for renal replacement therapy. 5. Hypokalemia Electrolyte repletion as ordered. Recheck levels in the morning. 6. Chronic tobacco dependency Tobacco cessation counseling was previously provided. Continue nicotine replacement therapy. 7. 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 Continue home medications as indicated. This note was generated with [facility] dictation software. It may contain incorrect words, spelling, and punctuation that were not noted in checking the note before signing. Subjective Subjective The patient was seen and examined at the bedside this morning. Events from the last 24 hours have been reviewed. The patient is currently afebrile, hemodynamically stable and maintaining appropriate oxygen saturations on 2 L/min via nasal cannula. The patient had to be started on a phenobarbital taper yesterday and CIMO protocol due to the development of acute alcohol withdrawal. He is currently documented to be overall net -1.9 L for the hospital admission. Potassium is low this morning at 2.8. Bicarbonate is elevated to 35. Objective Data Objective Data The patient's most recent lab work, culture data and imaging studies have all been personally reviewed. Vital Signs: Vital Signs Temp Pulse Resp BP Pulse Ox 97.4 F L 99 20 H 126/82 H 97 12/04/20 02:00 12/04/20 04:00 12/04/20 02:00 12/04/20 02:00 12/04/20 02:00 Oxygen Flow Rate (L/min) 2 Oxygen Delivery Method Nasal Cannula Weight: 124 lb 12.506 oz Body Mass Index (BMI) 20.7 Intake & Output: Intake and Output for Last 24 Hours 12/02/20 12/03/20 12/04/20 23:59 23:59 23:59 Intake Total 1871.90 / 1871.90 100 / 100 Output Total 3100 / 3250 800 / 800 Balance -1228.10 / -1378.10 -700 / -700 Lab / Micro Data Attestation: I reviewed the patient's lab results. Result Diagrams: 12/04/20 03:40 12/04/20 03:40 Labs: Laboratory Results - last 24 hr 12/03/20 12/03/20 12/03/20 00:37 04:35 05:27 WBC RBC Hgb Hct MCV MCH MCHC RDW Std Deviation RDW Coeff of Sophie Plt Count MPV Immature Gran % (Auto) Neut % (Auto) Lymph % (Auto) [place] % (Auto) Eos % (Auto) Baso % (Auto) Absolute Neuts (auto) Absolute Lymphs (auto) Nucleated RBC % Sodium Potassium Chloride Carbon Dioxide Anion Gap BUN Creatinine Estim Creat Clear Calc Est GFR (MDRD) Af Amer Est GFR (MDRD) Non-Af BUN/Creatinine Ratio Glucose Calcium Phosphorus 3.3 Magnesium 1.3 L Total Bilirubin AST ALT Alkaline Phosphatase Total Protein Albumin Globulin Albumin/Globulin Ratio Urine Opiates Screen Urine Methadone Screen Ur Barbiturates Screen Ur Phencyclidine Scrn Ur Amphetamines Screen U Methamphetamin-MDMA U Benzodiazepines Scrn Urine Cocaine Screen U Cannabinoids Screen Ur Drug Screen Comment POC Glucose 108 95 12/03/20 12/03/20 12/03/20 06:30 14:28 18:04 WBC RBC Hgb Hct MCV MCH MCHC RDW Std Deviation RDW Coeff of Sophie Plt Count MPV Immature Gran % (Auto) Neut % (Auto) Lymph % (Auto) [place] % (Auto) Eos % (Auto) Baso % (Auto) Absolute Neuts (auto) Absolute Lymphs (auto) Nucleated RBC % Sodium Potassium Chloride Carbon Dioxide Anion Gap BUN Creatinine Estim Creat Clear Calc Est GFR (MDRD) Af Amer Est GFR (MDRD) Non-Af BUN/Creatinine Ratio Glucose Calcium Phosphorus Magnesium Total Bilirubin AST ALT Alkaline Phosphatase Total Protein Albumin Globulin Albumin/Globulin Ratio Urine Opiates Screen POSITIVE H Urine Methadone Screen NEGATIVE Ur Barbiturates Screen NEGATIVE Ur Phencyclidine Scrn NEGATIVE Ur Amphetamines Screen NEGATIVE U Methamphetamin-MDMA NEGATIVE U Benzodiazepines Scrn NEGATIVE Urine Cocaine Screen NEGATIVE U Cannabinoids Screen POSITIVE H Ur Drug Screen Comment POC Glucose 80 104 12/04/20 12/04/20 03:40 03:40 WBC 13.6 H RBC 4.07 L Hgb 12.2 L Hct 37.1 L MCV 91.2 MCH 30.0 MCHC 32.9 D RDW Std Deviation 53.7 H RDW Coeff of Sophie 15.9 H Plt Count 347 MPV 10.2 Immature Gran % (Auto) 0.400 Neut % (Auto) 86.7 H Lymph % (Auto) 6.5 L [place] % (Auto) 5.0 Eos % (Auto) 1.1 Baso % (Auto) 0.3 Absolute Neuts (auto) 11.8 H Absolute Lymphs (auto) 0.89 Nucleated RBC % 0 Sodium 137 Potassium 2.8 L Chloride 96 L Carbon Dioxide 35.0 H Anion Gap 6 BUN 6 L Creatinine 0.81 Estim Creat Clear Calc 80.55 Est GFR (MDRD) Af Amer 127 Est GFR (MDRD) Non-Af 105 BUN/Creatinine Ratio 7.4 L Glucose 93 Calcium 8.9 Phosphorus Magnesium Total Bilirubin 0.30 AST 16 ALT 9 L Alkaline Phosphatase 97 Total Protein 6.7 Albumin 2.6 L Globulin 4.1 Albumin/Globulin Ratio 0.6 L Urine Opiates Screen Urine Methadone Screen Ur Barbiturates Screen Ur Phencyclidine Scrn Ur Amphetamines Screen U Methamphetamin-MDMA U Benzodiazepines Scrn Urine Cocaine Screen U Cannabinoids Screen Ur Drug Screen Comment POC Glucose Physical Exam Const no apparent distress Orientation / Consciousness: confused and disoriented HEENT normocephalic and head/scalp atraumatic Eyes PERRL, EOMs intact bilaterally and conjunctivae normal Neck supple General: trachea midline Resp normal respiratory effort Effort and Inspection: tachypneic Auscultation: Negative for rales, rhonchi or wheezes Cardio S1 normal heart sound and S2 normal heart sound Rate: tachycardic GI normal to inspection, nondistended, normoactive bowel sounds Extremity no clubbing, cyanosis or edema Skin no rashes or lesions noted Neuro moves all extremities and no focal motor deficits Psych Activity / Motor Behavior: restless Charges/Coding Visit Charges Inpatient E&M: 15903 [facility] Hosp L3
[2020-12-04 06:35] LABS: Bedside Glucose 98 mg/dL (70-110)
[2020-12-04 06:40] LABS: Acetaminophen (Tylenol) Level < 2.0 ug/mL (10.0-30.0)
[2020-12-04] MEDS: Famotidine 200 MG/20 ML MDV 20 MG in 0.9% Normal Saline (Pres. free 8 ML 999 MG IV (09:40)
[2020-12-04] MEDS: Potassium Chloride 10mEq/100mL 10 MEQ/100 ML IV.SOLN. 100 MEQ IV BOLUS ×5 (09:58→18:08)
--- NOTE | 2020-12-04 10:00 | CASEMGMT ---
RN BARBIE made tc to Brianna at [facility] to make aware that pt is inpatient.
--- NOTE | 2020-12-04 10:13 | CASEMGMT ---
Social Work Pt currently have services through [facility]. Pt is also active with the Waiver Program and Yoselyn Henderson is his acute care certified nursing assistant. Phone call to [facility] to notify of admission. Pt receives 7 meals per week through [employer], has a life line and has an independent Aid who assists 3 hours on Mondays and 1 hour each day , Wed, . Pt brother Carmine Givens, who lives in [place], is pt HCPOA and pt does have a living will on file. Per nursing, pt AMY is currently 17. Therapy has been unable to evaluate to this point. SW will continue to follow for discharge needs. MERLE Ortega
[2020-12-04 11:25] LABS: Bedside Glucose 103 mg/dL (70-110)
[2020-12-04] MEDS: Citalopram 40 MG TABLET PO (11:28)
[2020-12-04] MEDS: Potassium Chloride 10mEq/100mL 10 MEQ/100 ML IV.SOLN. 75 MEQ IV BOLUS ×3 (11:28→15:40)
[2020-12-04] MEDS: Aspirin 81 MG TAB.CHEW PO (11:28)
[2020-12-04] MEDS: 0.9% Saline Lock 10 ML Syringe IV ×3 (11:33→23:08)
[2020-12-04 11:45] LABS: Bedside Glucose 105 mg/dL (70-110)
--- NOTE | 2020-12-04 11:52 | PCM.PN.HOSP ---
Subjective Subjective Patient seen and examined. He became more confused and agitated overnight and has been requiring phenobarbital to help calm him down. Unable to do review of systems as patient was lethargic. Objective Data Objective Data Vital Signs: Vital Signs Temp Pulse Resp BP Pulse Ox 97.3 F L 100 24 H 134/116 H 98 12/04/20 08:00 12/04/20 10:00 12/04/20 10:00 12/04/20 10:00 12/04/20 10:00 Oxygen Flow Rate (L/min) 2 Oxygen Delivery Method Nasal Cannula Weight: 124 lb 12.506 oz Body Mass Index (BMI) 20.7 Intake & Output: Intake and Output for Last 24 Hours 12/02/20 12/03/20 12/04/20 23:59 23:59 23:59 Intake Total 1871.90 / 1871.90 200 / 200 Output Total 3100 / 3250 1000 / 1000 Balance -1228.10 / -1378.10 -800 / -800 Lab / Micro Data Result Diagrams: 12/04/20 03:40 12/04/20 03:40 Labs: Laboratory Results - last 24 hr 12/03/20 12/03/20 12/03/20 05:27 14:28 18:04 WBC RBC Hgb Hct MCV MCH MCHC RDW Std Deviation RDW Coeff of Sophie Plt Count MPV Immature Gran % (Auto) Neut % (Auto) Lymph % (Auto) [place] % (Auto) Eos % (Auto) Baso % (Auto) Absolute Neuts (auto) Absolute Lymphs (auto) Nucleated RBC % Sodium Potassium Chloride Carbon Dioxide Anion Gap BUN Creatinine Estim Creat Clear Calc Est GFR (MDRD) Af Amer Est GFR (MDRD) Non-Af BUN/Creatinine Ratio Glucose Calcium Total Bilirubin AST ALT Alkaline Phosphatase Total Protein Albumin Globulin Albumin/Globulin Ratio Acetaminophen POC Glucose 95 80 104 12/04/20 12/04/20 12/04/20 01:02 03:40 03:40 WBC 13.6 H RBC 4.07 L Hgb 12.2 L Hct 37.1 L MCV 91.2 MCH 30.0 MCHC 32.9 D RDW Std Deviation 53.7 H RDW Coeff of Sophie 15.9 H Plt Count 347 MPV 10.2 Immature Gran % (Auto) 0.400 Neut % (Auto) 86.7 H Lymph % (Auto) 6.5 L [place] % (Auto) 5.0 Eos % (Auto) 1.1 Baso % (Auto) 0.3 Absolute Neuts (auto) 11.8 H Absolute Lymphs (auto) 0.89 Nucleated RBC % 0 Sodium 137 Potassium 2.8 L Chloride 96 L Carbon Dioxide 35.0 H Anion Gap 6 BUN 6 L Creatinine 0.81 Estim Creat Clear Calc 80.55 Est GFR (MDRD) Af Amer 127 Est GFR (MDRD) Non-Af 105 BUN/Creatinine Ratio 7.4 L Glucose 93 Calcium 8.9 Total Bilirubin 0.30 AST 16 ALT 9 L Alkaline Phosphatase 97 Total Protein 6.7 Albumin 2.6 L Globulin 4.1 Albumin/Globulin Ratio 0.6 L Acetaminophen POC Glucose 98 12/04/20 12/04/20 12/04/20 03:40 06:40 11:23 WBC RBC Hgb Hct MCV MCH MCHC RDW Std Deviation RDW Coeff of Sophie Plt Count MPV Immature Gran % (Auto) Neut % (Auto) Lymph % (Auto) [place] % (Auto) Eos % (Auto) Baso % (Auto) Absolute Neuts (auto) Absolute Lymphs (auto) Nucleated RBC % Sodium Potassium Chloride Carbon Dioxide Anion Gap BUN Creatinine Estim Creat Clear Calc Est GFR (MDRD) Af Amer Est GFR (MDRD) Non-Af BUN/Creatinine Ratio Glucose Calcium Total Bilirubin AST ALT Alkaline Phosphatase Total Protein Albumin Globulin Albumin/Globulin Ratio Acetaminophen < 2.0 L POC Glucose 103 105 Physical Exam Const no limitations Constitutional Narrative: lethargic, minimally responsive General Appearance: cooperative, comfortable and well kempt Exam Limitations: no limitations HEENT normocephalic, head/scalp atraumatic and moist oral mucous membranes Head and Scalp: normocephalic Eyes PERRL, EOMs intact bilaterally, conjunctivae normal and no scleral icterus General Eye: normal appearance of both eyes Periorbital: periorbital findings normal Neck no lymphadenopathy, supple, no meningeal signs, no JVD and no carotid bruits General: trachea midline Thyroid: thyroid normal Resp normal respiratory effort, normal air movement, no retractions, no use of accessory muscles and clear to auscultation bilaterally Auscultation: Negative for crackles, rales, rhonchi or wheezes Cardio regular rate, regular rhythm, S1 normal heart sound, S2 normal heart sound, no murmurs and no JVD Peripheral Pulses: pulses 2+ throughout GI normal to inspection, nondistended, normoactive bowel sounds, soft to palpation, non-tender and non-distended; Negative for hepatosplenomegaly Auscultation: normoactive bowel sounds Extremity normal to inspection, full ROM and no clubbing, cyanosis or edema Peripheral Pulses: Yes pulses 2+ throughout Skin no rashes or lesions noted, no wounds and no petechiae Neuro Neuro Narrative: lethargic, minimally responsive, moves all extremities Psych mental status grossly normal, affect normal and denies hallucinations Assessment & Plan Assessment/Plan (1) EVERARDO (acute kidney injury): (2) Encephalopathy: (3) Acetaminophen toxicity: PLAN: #Acute acetaminophen toxicity liver enzymes have remained WNL completed a bag of N acetyl cysteine stable #Acute metabolic encephalopathy due to tylenol overdose now more confused on alcohol withdrawal protocol due to acute alcohol withdrawal CT of the brain was negative. Alcohol drug protocol with phenobarbital. Monitor CIWA score. #Acute alcohol withdrawal On alcohol withdrawal protocol with phenobarbital. Monitor CIWA score. on folic acid, thiamine and multivite #Hyperlipidemia: On statins #EVERARDO: resolved. #hypokalemia: K is 2.8. Will replace and trend. Hypomagnesemia: resolved. #Type 2 diabetes mellitus: On sitagliptin. Insulin sliding scale. Checks AC at bedtime. #History of lung cancer: Stable #Hypothyroidism: On Synthroid #Nicotine dependence: Nicotine patch #DVT prophylaxis: Lovenox Visit Charges Inpatient E&M: 52047 [facility] Hosp L3
[2020-12-04] MEDS: Enoxaparin 40 MG/0.4 ML Syringe SC (12:21)
[2020-12-04 17:46] LABS: Bedside Glucose 117 mg/dL (70-110)
[2020-12-04] MEDS: Famotidine 200 MG/20 ML MDV 20 MG in 0.9% Normal Saline (Pres. free 8 ML 300 MG IV (21:52)
[2020-12-05] VITALS (20 sets, daily range): BP systolic 127–165; BP diastolic 73–114; PULSE 86–107; RESP 18–30; TEMP 36.4–36.9; O2SAT 91–98
[2020-12-05 00:11] LABS: Bedside Glucose 97 mg/dL (70-110)
[2020-12-05] MEDS: Phenobarbital 32.4 MG Tablet 64.8 MG PO ×4 (00:13→13:06)
[2020-12-05 04:23] LABS: Absolute Lymphocyte Count 0.74 X10^3/uL (0.83-4.51); Absolute Neutrophil Count 13.2 X10^3/uL (2.0-7.7); Basophil# 0.04 X10^3/uL; Basophil% 0.3 % (0-1); Eosinophil# 0.05 X10^3/uL; Eosinophils% 0.3 % (0-5); Hematocrit 36.9 % (40-54); Hemoglobin 12.1 g/dL (13.0-16.5); Lymphocyte # 0.74 X10^3/ul (0.83-4.51); Mean Corp Hgb Conc 32.8 g/dL (32-36); Mean Corpuscular Hgb 29.6 pg (27.0-32.0); Mean Corpuscular Volume 90.2 fL (80-94); Mean Platelet Vol. 10.4 fl (6.2-12.0); Monocyte# 0.73 X10^3/uL; Monocyte% 4.9 % (0-10); NRBC Flagged by Analyzer 0 % (0-5); Neutrophil # 13.17 X10^3/uL (2.7-7.7); Neutrophil % 89.1 % (47-70); Platelet Count 346 K/mm3 (150-450); RBC Distribution Width CV 15.9 % (11.6-14.6); Red Blood Count 4.09 M/mm3 (4.6-6.2); White Blood Count 14.8 K/mm3 (4.4-11.0)
[2020-12-05 04:47] LABS: ALB/GLOB Ratio 0.6 RATIO (0.9-2.4); AST(SGOT) 19 U/L (15-37); Alanine Aminotransfer ALT/SGPT 8 U/L (16-61); Albumin, Serum 2.4 g/dL (3.2-5.0); Alkaline Phosphatase 95 U/L (45-117); Anion Gap 6 (5-15); BUN 11 mg/dL (7-18); BUN/Creat Ratio 14.4 RATIO (10-20); Calcium,Total 8.6 mg/dL (8.5-10.1); Chloride 99 mmol/L (98-107); Creatinine, Serum 0.76 mg/dL (0.70-1.30); EST Glomerular Filtration Rate 112 mL/min (>60); Est Glom Filt Rate - Afr Amer 135 mL/min (>60); Estimated Creatinine Clearance 86.15 ml/min; Globulin 4.1 g/dL (2.2-4.2); Glucose 91 mg/dL (74-106); Potassium 3.6 mmol/L (3.5-5.1); Protein, Total 6.5 g/dL (6.4-8.2); Sodium Level 136 mmol/L (136-145)
[2020-12-05 05:02] LABS: Acetaminophen (Tylenol) Level < 2.0 ug/mL (10.0-30.0)
--- NOTE | 2020-12-05 05:50 | PN.CC_ITS ---
Assessment & Plan Assessment/Plan (1) Acetaminophen toxicity: PLAN: RECOMMENDATIONS: 1. Continue phenobarbital taper and as needed Ativan per [facility] protocol. 2. Continue thiamine and folate repletion. 3. Electrolyte repletion as needed. 4. Continue nicotine replacement therapy. 5. Continue aerosol treatments as ordered. IMPRESSIONS: 1. Acetaminophen toxicity Resolved. The patient presented to the hospital with encephalopathy and was subsequently found to have an elevated acetaminophen level. However, the exact time from ingestion was not known. Liver function profile was within normal limits as well as coags. N-acetylcysteine was started in the emergency department. The patient's acetaminophen level subsequently normalized and the N-acetylcysteine was discontinued. 2. Encephalopathy Suspect related to opiate overdose given positive effects from Narcan. The patient has become more lethargic in light of being placed on a phenobarbital taper for his acute alcohol withdrawal symptoms. 3. Acute alcohol withdrawal Continue management per [facility] protocol with phenobarbital taper and as needed Ativan. Continue thiamine and folate repletion. 4. Acute kidney injury Resolved. Likely prerenal in etiology. Continue to monitor urine output. No current indication for renal replacement therapy. 5. Chronic tobacco dependency Tobacco cessation counseling was previously provided. Continue nicotine replacement therapy. 6. 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 Continue home medications as indicated. This note was generated with [employer] dictation software. It may contain incorrect words, spelling, and punctuation that were not noted in checking the note before signing. Subjective Subjective The patient was seen and examined at the bedside this morning. Events from the last 24 hours have been reviewed. The patient is currently afebrile, hemodynamically stable and maintaining appropriate oxygen saturations on 2 L/min via nasal cannula. He is currently documented to be overall net -1.9 L for the hospital admission. White blood cell count was noted to be 15,000 this morning. The patient remains on his phenobarbital taper. CIWA score was last noted to be 4. Objective Data Objective Data The patient's most recent lab work, culture data and imaging studies have all been personally reviewed. Vital Signs: Vital Signs Temp Pulse Resp BP Pulse Ox 97.9 F 106 H 21 H 156/94 H 97 12/04/20 20:42 12/05/20 03:13 12/04/20 22:00 12/04/20 22:00 12/04/20 22:00 Oxygen Flow Rate (L/min) 2 Oxygen Delivery Method Nasal Cannula Weight: 125 lb 3.561 oz Body Mass Index (BMI) 20.7 Intake & Output: Intake and Output for Last 24 Hours 12/03/20 12/04/20 12/05/20 23:59 23:59 23:59 Intake Total 1871.90 / 1871.90 861.20 / 861.20 Output Total 3100 / 3250 1500 / 1550 50 / 50 Balance -1228.10 / -1378.10 -638.80 / -688.80 -50 / -50 Lab / Micro Data Attestation: I reviewed the patient's lab results. Result Diagrams: 12/05/20 04:00 12/05/20 04:00 Labs: Laboratory Results - last 24 hr 12/04/20 12/04/20 12/04/20 01:02 03:40 06:40 WBC RBC Hgb Hct MCV MCH MCHC RDW Std Deviation RDW Coeff of Sophie Plt Count MPV Immature Gran % (Auto) Neut % (Auto) Lymph % (Auto) [place] % (Auto) Eos % (Auto) Baso % (Auto) Absolute Neuts (auto) Absolute Lymphs (auto) Nucleated RBC % Sodium Potassium Chloride Carbon Dioxide Anion Gap BUN Creatinine Estim Creat Clear Calc Est GFR (MDRD) Af Amer Est GFR (MDRD) Non-Af BUN/Creatinine Ratio Glucose Calcium Total Bilirubin AST ALT Alkaline Phosphatase Total Protein Albumin Globulin Albumin/Globulin Ratio Acetaminophen < 2.0 L POC Glucose 98 103 12/04/20 12/04/20 12/05/20 11:23 17:41 00:06 WBC RBC Hgb Hct MCV MCH MCHC RDW Std Deviation RDW Coeff of Sophie Plt Count MPV Immature Gran % (Auto) Neut % (Auto) Lymph % (Auto) [place] % (Auto) Eos % (Auto) Baso % (Auto) Absolute Neuts (auto) Absolute Lymphs (auto) Nucleated RBC % Sodium Potassium Chloride Carbon Dioxide Anion Gap BUN Creatinine Estim Creat Clear Calc Est GFR (MDRD) Af Amer Est GFR (MDRD) Non-Af BUN/Creatinine Ratio Glucose Calcium Total Bilirubin AST ALT Alkaline Phosphatase Total Protein Albumin Globulin Albumin/Globulin Ratio Acetaminophen POC Glucose 105 117 H 97 12/05/20 12/05/20 12/05/20 04:00 04:00 04:00 WBC 14.8 H RBC 4.09 L Hgb 12.1 L Hct 36.9 L MCV 90.2 MCH 29.6 MCHC 32.8 RDW Std Deviation 53.0 H RDW Coeff of Sophie 15.9 H Plt Count 346 MPV 10.4 Immature Gran % (Auto) 0.400 Neut % (Auto) 89.1 H Lymph % (Auto) 5.0 L [place] % (Auto) 4.9 Eos % (Auto) 0.3 Baso % (Auto) 0.3 Absolute Neuts (auto) 13.2 H Absolute Lymphs (auto) 0.74 L Nucleated RBC % 0 Sodium 136 Potassium 3.6 Chloride 99 Carbon Dioxide 31.0 Anion Gap 6 BUN 11 Creatinine 0.76 Estim Creat Clear Calc 86.15 Est GFR (MDRD) Af Amer 135 Est GFR (MDRD) Non-Af 112 BUN/Creatinine Ratio 14.4 Glucose 91 Calcium 8.6 Total Bilirubin 0.30 AST 19 ALT 8 L Alkaline Phosphatase 95 Total Protein 6.5 Albumin 2.4 L Globulin 4.1 Albumin/Globulin Ratio 0.6 L Acetaminophen < 2.0 L POC Glucose Physical Exam Const no apparent distress Constitutional Narrative: Minimally responsive to verbal stimulation. General Appearance: lethargic HEENT normocephalic and head/scalp atraumatic Eyes PERRL Neck supple General: trachea midline Resp normal respiratory effort Effort and Inspection: tachypneic Auscultation: Negative for rales, rhonchi or wheezes Cardio S1 normal heart sound and S2 normal heart sound Rate: tachycardic GI normal to inspection, nondistended, normoactive bowel sounds Extremity no clubbing, cyanosis or edema Skin no rashes or lesions noted Neuro no focal motor deficits Sensorium / Orientation: lethargic Psych Psych Narrative: Becomes tremulous when stimulated. Charges/Coding Visit Charges Inpatient E&M: 95827 [facility] Hosp L3
[2020-12-05] MEDS: Famotidine 200 MG/20 ML MDV 20 MG in 0.9% Normal Saline (Pres. free 8 ML 300 MG IV ×2 (09:25→22:28)
[2020-12-05] MEDS: Citalopram 40 MG TABLET PO (09:25)
[2020-12-05] MEDS: Enoxaparin 40 MG/0.4 ML Syringe SC (09:25)
[2020-12-05] MEDS: 0.9% Saline Lock 10 ML Syringe IV ×2 (09:25→11:11)
--- NOTE | 2020-12-05 09:45 | PN.HOSP_ITS ---
Subjective Subjective Patient seen and examined. He is lethargic and minimally responsive. He remains tachypneic and tachycardic. unable to do review of systems due to his lethargy. wbc today is up to 14.6. Objective Data Objective Data Vital Signs: Vital Signs Temp Pulse Resp BP Pulse Ox 98.1 F 106 H 18 144/81 H 96 12/05/20 06:00 12/05/20 07:30 12/05/20 06:00 12/05/20 06:00 12/05/20 07:01 Oxygen Flow Rate (L/min) 2 Oxygen Delivery Method Nasal Cannula Weight: 125 lb 3.561 oz Body Mass Index (BMI) 20.7 Intake & Output: Intake and Output for Last 24 Hours 12/03/20 12/04/20 12/05/20 23:59 23:59 23:59 Intake Total 1871.90 / 1871.90 861.20 / 861.20 Output Total 3100 / 3250 1500 / 1550 270 / 270 Balance -1228.10 / -1378.10 -638.80 / -688.80 -270 / -270 Lab / Micro Data Result Diagrams: 12/05/20 04:00 12/05/20 04:00 Labs: Laboratory Results - last 24 hr 12/04/20 12/04/20 12/04/20 06:40 11:23 17:41 WBC RBC Hgb Hct MCV MCH MCHC RDW Std Deviation RDW Coeff of Sophie Plt Count MPV Immature Gran % (Auto) Neut % (Auto) Lymph % (Auto) [place] % (Auto) Eos % (Auto) Baso % (Auto) Absolute Neuts (auto) Absolute Lymphs (auto) Nucleated RBC % Sodium Potassium Chloride Carbon Dioxide Anion Gap BUN Creatinine Estim Creat Clear Calc Est GFR (MDRD) Af Amer Est GFR (MDRD) Non-Af BUN/Creatinine Ratio Glucose Calcium Total Bilirubin AST ALT Alkaline Phosphatase Total Protein Albumin Globulin Albumin/Globulin Ratio Acetaminophen POC Glucose 103 105 117 H 12/05/20 12/05/20 12/05/20 00:06 04:00 04:00 WBC RBC Hgb Hct MCV MCH MCHC RDW Std Deviation RDW Coeff of Sophie Plt Count MPV Immature Gran % (Auto) Neut % (Auto) Lymph % (Auto) [place] % (Auto) Eos % (Auto) Baso % (Auto) Absolute Neuts (auto) Absolute Lymphs (auto) Nucleated RBC % Sodium 136 Potassium 3.6 Chloride 99 Carbon Dioxide 31.0 Anion Gap 6 BUN 11 Creatinine 0.76 Estim Creat Clear Calc 86.15 Est GFR (MDRD) Af Amer 135 Est GFR (MDRD) Non-Af 112 BUN/Creatinine Ratio 14.4 Glucose 91 Calcium 8.6 Total Bilirubin 0.30 AST 19 ALT 8 L Alkaline Phosphatase 95 Total Protein 6.5 Albumin 2.4 L Globulin 4.1 Albumin/Globulin Ratio 0.6 L Acetaminophen < 2.0 L POC Glucose 97 12/05/20 04:00 WBC 14.8 H RBC 4.09 L Hgb 12.1 L Hct 36.9 L MCV 90.2 MCH 29.6 MCHC 32.8 RDW Std Deviation 53.0 H RDW Coeff of Sophie 15.9 H Plt Count 346 MPV 10.4 Immature Gran % (Auto) 0.400 Neut % (Auto) 89.1 H Lymph % (Auto) 5.0 L [place] % (Auto) 4.9 Eos % (Auto) 0.3 Baso % (Auto) 0.3 Absolute Neuts (auto) 13.2 H Absolute Lymphs (auto) 0.74 L Nucleated RBC % 0 Sodium Potassium Chloride Carbon Dioxide Anion Gap BUN Creatinine Estim Creat Clear Calc Est GFR (MDRD) Af Amer Est GFR (MDRD) Non-Af BUN/Creatinine Ratio Glucose Calcium Total Bilirubin AST ALT Alkaline Phosphatase Total Protein Albumin Globulin Albumin/Globulin Ratio Acetaminophen POC Glucose Physical Exam Const no limitations Constitutional Narrative: lethargic, minimally responsive General Appearance: cooperative, comfortable and well kempt Exam Limitations: no limitations HEENT normocephalic, head/scalp atraumatic and moist oral mucous membranes Head and Scalp: normocephalic Eyes PERRL, EOMs intact bilaterally, conjunctivae normal and no scleral icterus General Eye: normal appearance of both eyes Periorbital: periorbital findings normal Neck no lymphadenopathy, supple, no meningeal signs, no JVD and no carotid bruits General: trachea midline Thyroid: thyroid normal Resp normal air movement Resp Narrative: diminished breath sounds bibasally, no wheezes or crackles Cardio regular rate, regular rhythm, S1 normal heart sound, S2 normal heart sound, no murmurs and no JVD Peripheral Pulses: pulses 2+ throughout GI normal to inspection, nondistended, normoactive bowel sounds, soft to palpation, non-tender and non-distended; Negative for hepatosplenomegaly Auscultation: normoactive bowel sounds Extremity normal to inspection, full ROM and no clubbing, cyanosis or edema Peripheral Pulses: Yes pulses 2+ throughout Skin no rashes or lesions noted, no wounds and no petechiae Neuro Neuro Narrative: lethargic, minimally responsive, moves all extremities Psych mental status grossly normal, affect normal and denies hallucinations Assessment & Plan Assessment/Plan (1) EVERARDO (acute kidney injury): (2) Encephalopathy: (3) Acetaminophen toxicity: PLAN: #Acute acetaminophen toxicity * liver enzymes have remained WNL * completed a bag of N acetyl cysteine * stable * #Acute metabolic encephalopathy due to acute alcohol withdrawal * more confused, lethargic, tachypneic and tachycardic * on alcohol withdrawal protocol due to acute alcohol withdrawal * CT of the brain was negative. Alcohol drug protocol with phenobarbital. * Monitor CIWA score. * #Acute alcohol withdrawal * On alcohol withdrawal protocol with phenobarbital. * Monitor CIWA score. * on folic acid, thiamine and multivite * #Sepsis likely due to pneumonia * patient is tachypneic and tachycardic, and wbc is also up to 14.8 * there is no clear evidence of infection. * may also be due to the acute alcohol withdrawal * CTA chest on admission showed an oval 7.5 x 3.2cm x 4.4cm mass with peripheral increased density which is better organized and better defined in left lung, compared to the previous study. This is suspicious for pneumonia or residual neoplasm. Patchy ground glass opacities in the inferior aspect of the right upper lobe and rightr middle lobe, compared to prior. * Will start patient on IV vancomycin and zosyn, and get blood cultures * #Hyperlipidemia: On statins #EVERARDO: resolved. #hypokalemia: resolved. K is 3.6 today Hypomagnesemia: resolved. #Type 2 diabetes mellitus: On sitagliptin. Insulin sliding scale. Checks AC at bedtime. #History of lung cancer: Stable #Hypothyroidism: On Synthroid #Nicotine dependence: Nicotine patch #DVT prophylaxis: Lovenox Visit Charges Inpatient E&M: 74809 Subs Hosp L3
[2020-12-05 11:20] LABS: Bedside Glucose 103 mg/dL (70-110)
--- NOTE | 2020-12-05 11:20 | CASEMGMT ---
RN BARBIE in to pt room with MARTY Vega. Pt nurse Abby in room stating pt is not opening eyes at this time or able to communicate. MARTY to attempt to reach brother DPOA via tc.
--- NOTE | 2020-12-05 11:51 | CASEMGMT ---
Social Work SW and RNCM attempted to meet with pt in room. Bedside nurse in the room with pt stating pt is lethargic and not waking up this morning and unable to talk with SW. SW placed call to pt brother/HCPOA Carmine Givens. Carmine states he lives in [place] and has not seen pt in a while. Carmine is in contact with a friend of Rowdy from the [facility] who helps him and sees him often. SW discussed likely need for SNF at time of discharge and Carmine states that he and friend feel like it is also necessary at this time. Carmine is unable to offer any insight into pt alcohol consumption or how he has been getting around at home as he has not seen pt for quite some time. SW emailed list of SNF providers including quality and resource use data and consistent with the patient's preferred geographic region, medical needs and insurance network. Carmine will review list with pt's friend and notify SW of choices of facilities. MERLE Ortega
[2020-12-05 17:01] LABS: Bedside Glucose 94 mg/dL (70-110)
--- NOTE | 2020-12-05 17:02 | PCM.RX.CS ---
Consult Pharmacy has been consulted to manage selected antiobiotic: Vancomycin Type of Consult: New start Labs: Sodium 136 mmol/L (136-145) 12/05/20 04:00 Potassium 3.6 mmol/L (3.5-5.1) 12/05/20 04:00 Chloride 99 mmol/L (98-107) 12/05/20 04:00 Carbon Dioxide 31.0 mmol/L (21.0-32.0) 12/05/20 04:00 Anion Gap 6 (5-15) 12/05/20 04:00 BUN 11 mg/dL (7-18) 12/05/20 04:00 Creatinine 0.76 mg/dL (0.70-1.30) 12/05/20 04:00 Est GFR (MDRD) Af Amer 135 mL/min (>60) 12/05/20 04:00 Est GFR (MDRD) Non-Af 112 mL/min (>60) 12/05/20 04:00 BUN/Creatinine Ratio 14.4 RATIO (10-20) 12/05/20 04:00 Glucose 91 mg/dL (74-106) 12/05/20 04:00 Weight used for dosin kg Estimated Creatinine Clearance: 86mls/min Pharmacy Plan for Drug Dosing: NEW START IV VANCOMYCIN Consulting Physician: Monae Indication: Goal Trough: 15-20 SrCr: 0.76 CrCl: 86ml/min Comments: Pt received a 25mg/kg loading dose 12/05/20 at 1109 Vancomcyin Dose: based on pts weight and renal function, recommend an initial dose of 1000mg q12h starting 12/05/20 at 2300 Pending Level: 12/06/20 at 2230 Pharmacy Service will continue to monitor and adjust dosing as required. Follow-Up Labs: Trough Vancomycin - 12/06/20 at 2230
[2020-12-05] MEDS: Vancomycin IV 1,000 MG/200 ML BAG 200 MG IV (23:30)
[2020-12-06] VITALS (27 sets, daily range): BP systolic 125–167; BP diastolic 68–118; PULSE 85–99; RESP 18–27; TEMP 36.5–36.8; O2SAT 88–99
[2020-12-06 00:16] LABS: Bedside Glucose 111 mg/dL (70-110)
[2020-12-06 04:52] LABS: Absolute Lymphocyte Count 0.78 X10^3/uL (0.83-4.51); Absolute Neutrophil Count 14.5 X10^3/uL (2.0-7.7); Basophil# 0.05 X10^3/uL; Basophil% 0.3 % (0-1); Eosinophil# 0.06 X10^3/uL; Eosinophils% 0.4 % (0-5); Hematocrit 37.5 % (40-54); Hemoglobin 12.2 g/dL (13.0-16.5); Lymphocyte # 0.78 X10^3/ul (0.83-4.51); Lymphocyte % 4.7 % (19-41); Mean Corp Hgb Conc 32.5 g/dL (32-36); Mean Corpuscular Volume 92.1 fL (80-94); Mean Platelet Vol. 10.3 fl (6.2-12.0); Monocyte# 1.03 X10^3/uL; Monocyte% 6.3 % (0-10); NRBC Flagged by Analyzer 0 % (0-5); Neutrophil # 14.49 X10^3/uL (2.7-7.7); Neutrophil % 87.9 % (47-70); Platelet Count 331 K/mm3 (150-450); RBC Distribution Width SD 54.4 fl (35.1-43.9); Red Blood Count 4.07 M/mm3 (4.6-6.2); White Blood Count 16.5 K/mm3 (4.4-11.0)
[2020-12-06] MEDS: CHLORHEXIDINE GLUC 2% CLOTH 1 EACH TOWELETTE TOPICAL (04:55)
[2020-12-06 05:08] LABS: ALB/GLOB Ratio 0.5 RATIO (0.9-2.4); AST(SGOT) 12 U/L (15-37); Alanine Aminotransfer ALT/SGPT 10 U/L (16-61); Albumin, Serum 2.3 g/dL (3.2-5.0); Alkaline Phosphatase 88 U/L (45-117); Anion Gap 5 (5-15); BUN 12 mg/dL (7-18); BUN/Creat Ratio 17.2 RATIO (10-20); Calcium,Total 8.9 mg/dL (8.5-10.1); Chloride 96 mmol/L (98-107); EST Glomerular Filtration Rate 123 mL/min (>60); Est Glom Filt Rate - Afr Amer 149 mL/min (>60); Estimated Creatinine Clearance 93.54 ml/min; Globulin 4.4 g/dL (2.2-4.2); Glucose 87 mg/dL (74-106); Potassium 3.3 mmol/L (3.5-5.1); Protein, Total 6.7 g/dL (6.4-8.2); Sodium Level 136 mmol/L (136-145)
--- NOTE | 2020-12-06 05:52 | PN.CC_ITS ---
Assessment & Plan Assessment/Plan (1) Acetaminophen toxicity: PLAN: RECOMMENDATIONS: 1. Continue as needed Ativan per [facility] protocol. 2. Continue thiamine and folate repletion. 3. Electrolyte repletion as needed. 4. Continue nicotine replacement therapy. 5. Continue aerosol treatments as ordered. 6. Obtain chest x-ray this morning. 7. Continue empiric antimicrobials. IMPRESSIONS: 1. Acetaminophen toxicity Resolved. The patient presented to the hospital with encephalopathy and was subsequently found to have an elevated acetaminophen level. However, the exact time from ingestion was not known. Liver function profile was within normal limits as well as coags. N-acetylcysteine was started in the emergency department. The patient's acetaminophen level subsequently normalized and the N-acetylcysteine was discontinued. 2. Encephalopathy Suspect related to opiate overdose given positive effects from Narcan. The patient has become more lethargic in light of being placed on a phenobarbital taper for his acute alcohol withdrawal symptoms. His phenobarbital was subsequently discontinued. 3. Acute alcohol withdrawal Continue management per [facility] protocol with as needed Ativan for now. Continue thiamine and folate repletion. 4. Acute kidney injury Resolved. Likely prerenal in etiology. Continue to monitor urine output. No current indication for renal replacement therapy. 5. Chronic tobacco dependency Tobacco cessation counseling was previously provided. Continue nicotine replacement therapy. 6. 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 Continue home medications as indicated. This note was generated with [employer] dictation software. It may contain incorrect words, spelling, and punctuation that were not noted in checking the note before signing. Subjective Subjective The patient was seen and examined at the bedside this morning. Events from the last 24 hours have been reviewed. The patient is currently afebrile, hemodynamically stable and maintaining appropriate oxygen saturations on 4 L/min via nasal cannula. Due to his lethargy noted yesterday, the patient's phenobarbital taper was discontinued. He is currently documented to be overall net -1.8 L for the hospital admission. The patient still remains quite lethargic this morning. He will not open his eyes but does respond to noxious stimulation. He appears restless in bed. Objective Data Objective Data The patient's most recent lab work, culture data and imaging studies have all been personally reviewed. Blood cultures are currently pending. Vital Signs: Vital Signs Temp Pulse Resp BP Pulse Ox 98.1 F 97 25 H 154/83 H 93 12/06/20 00:00 12/06/20 05:00 12/06/20 05:00 12/06/20 05:00 12/06/20 05:00 Oxygen Flow Rate (L/min) 4 Oxygen Delivery Method Nasal Cannula Weight: 125 lb 3.561 oz Body Mass Index (BMI) 20.7 Intake & Output: Intake and Output for Last 24 Hours 12/04/20 12/05/20 12/06/20 23:59 23:59 23:59 Intake Total 861.20 / 861.20 701.2 / 701.2 250 / 250 Output Total 1500 / 1550 640 / 840 200 / 200 Balance -638.80 / -688.80 61.2 / -138.8 50 / 50 Lab / Micro Data Attestation: I reviewed the patient's lab results. Result Diagrams: 12/06/20 04:30 12/06/20 04:30 Labs: Laboratory Results - last 24 hr 12/05/20 12/05/20 12/06/20 11:13 16:59 00:11 WBC RBC Hgb Hct MCV MCH MCHC RDW Std Deviation RDW Coeff of Sophie Plt Count MPV Immature Gran % (Auto) Neut % (Auto) Lymph % (Auto) [place] % (Auto) Eos % (Auto) Baso % (Auto) Absolute Neuts (auto) Absolute Lymphs (auto) Nucleated RBC % Sodium Potassium Chloride Carbon Dioxide Anion Gap BUN Creatinine Estim Creat Clear Calc Est GFR (MDRD) Af Amer Est GFR (MDRD) Non-Af BUN/Creatinine Ratio Glucose Calcium Total Bilirubin AST ALT Alkaline Phosphatase Total Protein Albumin Globulin Albumin/Globulin Ratio POC Glucose 103 94 111 H 12/06/20 12/06/20 04:30 04:30 WBC 16.5 H RBC 4.07 L Hgb 12.2 L Hct 37.5 L MCV 92.1 MCH 30.0 MCHC 32.5 RDW Std Deviation 54.4 H RDW Coeff of Sophie 16.0 H Plt Count 331 MPV 10.3 Immature Gran % (Auto) 0.400 Neut % (Auto) 87.9 H Lymph % (Auto) 4.7 L [place] % (Auto) 6.3 Eos % (Auto) 0.4 Baso % (Auto) 0.3 Absolute Neuts (auto) 14.5 H Absolute Lymphs (auto) 0.78 L Nucleated RBC % 0 Sodium 136 Potassium 3.3 L Chloride 96 L Carbon Dioxide 35.0 H Anion Gap 5 BUN 12 Creatinine 0.70 Estim Creat Clear Calc 93.54 Est GFR (MDRD) Af Amer 149 Est GFR (MDRD) Non-Af 123 BUN/Creatinine Ratio 17.2 Glucose 87 Calcium 8.9 Total Bilirubin 0.30 AST 12 L ALT 10 L Alkaline Phosphatase 88 Total Protein 6.7 Albumin 2.3 L Globulin 4.4 H Albumin/Globulin Ratio 0.5 L POC Glucose Physical Exam Const no apparent distress Constitutional Narrative: The patient will not open his eyes to verbal stimulation but does respond to noxious/painful stimulation. General Appearance: lethargic HEENT normocephalic and head/scalp atraumatic Eyes PERRL Neck supple General: trachea midline Resp normal respiratory effort Effort and Inspection: tachypneic Auscultation: Negative for rales, rhonchi or wheezes Cardio S1 normal heart sound and S2 normal heart sound Rate: tachycardic GI normal to inspection, nondistended, normoactive bowel sounds Extremity no clubbing, cyanosis or edema Skin no rashes or lesions noted Neuro no focal motor deficits Sensorium / Orientation: lethargic Psych Psych Narrative: Intermittently tremulous and restless in bed. Charges/Coding Visit Charges Inpatient E&M: 25688 Subs Hosp L3
[2020-12-06 06:21] LABS: Bedside Glucose 91 mg/dL (70-110)
[2020-12-06 07:16] LABS: Allen Test Positive; Base Excess 5 mmol/L (-2 to +2); Bicarbonate 29.7 mmol/L (22-26); Blood Gas Specimen Type ART; O2 Delivery Device Cannula; PO2 55 mmHG (75-100); SITE L Radial; SO2 88 % (95-99); Total Carbon Dioxide 31 mmol/L; pH 7.42 (7.35-7.45)
[2020-12-06] MEDS: Potassium Chloride 10mEq/100mL 10 MEQ/100 ML IV.SOLN. 100 MEQ IV BOLUS ×4 (09:18→12:58)
--- NOTE | 2020-12-06 09:18 | RAD_ITS ---
STUDY: X-RAY CHEST REASON FOR EXAM: Male, 55 years old. Respiratory Insufficiency TECHNIQUE: Single AP portable view of the chest. COMPARISON: Comparison is made with prior study dated 12/02/2020. FINDINGS: EKG electrodes are seen. Stable soft tissue density in the left lung apex with retraction of the left hilum. Mild increased markings in the posterior medial segment of the left lower lobe with blunting of the left costophrenic angle. Normal size heart. Normal mediastinum and [place]. Normal visualized pulmonary arteries. Normal visualized aortic arch and descending thoracic aorta. There are diffuse degenerative changes of the visualized thoracic spine. Normal visualized ribs, clavicles, and shoulders. There is no demonstrated abnormality of the visualized soft tissue structures of the upper abdomen. RAD/Chest 1 View (Portable) IMPRESSION: Stable soft tissue density in the left lung apex with retraction of the left hilum. Findings suggestive of new atelectasis and/or infiltrate at the left lung base. Stable blunting of left costophrenic angle. Electronically Signed: Baljinder Olivo MD at 9:38 EDT , Service support ,
[2020-12-06] MEDS: Enoxaparin 40 MG/0.4 ML Syringe SC (09:22)
[2020-12-06] MEDS: LORazepam 2 MG/ML Syringe IV ×7 (10:05→21:52)
[2020-12-06] MEDS: 0.9% Saline Lock 10 ML Syringe IV ×7 (10:08→23:25)
[2020-12-06] MEDS: Famotidine 200 MG/20 ML MDV 20 MG in 0.9% Normal Saline (Pres. free 8 ML 300 MG IV ×2 (10:08→21:19)
--- NOTE | 2020-12-06 10:11 | CASEMGMT ---
Addendum entered by Silvia Courtney 12/06/20 16:36: Social Work Return call from the [facility] and they are able to accept pt. Precert will need to be obtained. Message left with pt brother informing of this. Guadalupe LEONG updated. MERLE Ortega Original Note: Social Work SW spoke with pt brother Carmine on the phone. Questions regarding area SNFs answered. Carmine states that he did speak with a local friend of pts, Sofya Lopez, and the preferred SNF provider [facility] [address] [facility] [address]. VM left with Elsa at the [facility] for bed availability. SW will await return call. MERLE Ortega
--- NOTE | 2020-12-06 10:41 | PN.HOSP_ITS ---
Subjective Subjective summoned. Patient remains very lethargic. Unable to do review of systems on account of patient's lethargic.phenobarbital has been discontinued. He has remained hemodynamically stable. He remains on 4 L of oxygen. Objective Data Objective Data Vital Signs: Vital Signs Temp Pulse Resp BP Pulse Ox 97.9 F 97 18 125/70 H 94 12/06/20 09:27 12/06/20 09:27 12/06/20 09:27 12/06/20 09:27 12/06/20 09:27 Oxygen Flow Rate (L/min) 4 Oxygen Delivery Method Room Air Weight: 125 lb 3.561 oz Body Mass Index (BMI) 20.7 Intake & Output: Intake and Output for Last 24 Hours 12/04/20 12/05/20 12/06/20 23:59 23:59 23:59 Intake Total 861.20 / 861.20 701.2 / 701.2 250 / 250 Output Total 1500 / 1550 640 / 840 600 / 600 Balance -638.80 / -688.80 61.2 / -138.8 -350 / -350 Lab / Micro Data Result Diagrams: 12/06/20 04:30 12/06/20 04:30 Labs: Laboratory Results - last 24 hr 12/05/20 12/05/20 12/06/20 11:13 16:59 00:11 WBC RBC Hgb Hct MCV MCH MCHC RDW Std Deviation RDW Coeff of Sophie Plt Count MPV Immature Gran % (Auto) Neut % (Auto) Lymph % (Auto) [place] % (Auto) Eos % (Auto) Baso % (Auto) Absolute Neuts (auto) Absolute Lymphs (auto) Nucleated RBC % Sodium Potassium Chloride Carbon Dioxide Anion Gap BUN Creatinine Estim Creat Clear Calc Est GFR (MDRD) Af Amer Est GFR (MDRD) Non-Af BUN/Creatinine Ratio Glucose Calcium Total Bilirubin AST ALT Alkaline Phosphatase Total Protein Albumin Globulin Albumin/Globulin Ratio POC Glucose 103 94 111 H 12/06/20 12/06/20 12/06/20 04:30 04:30 06:11 WBC 16.5 H RBC 4.07 L Hgb 12.2 L Hct 37.5 L MCV 92.1 MCH 30.0 MCHC 32.5 RDW Std Deviation 54.4 H RDW Coeff of Sophie 16.0 H Plt Count 331 MPV 10.3 Immature Gran % (Auto) 0.400 Neut % (Auto) 87.9 H Lymph % (Auto) 4.7 L [place] % (Auto) 6.3 Eos % (Auto) 0.4 Baso % (Auto) 0.3 Absolute Neuts (auto) 14.5 H Absolute Lymphs (auto) 0.78 L Nucleated RBC % 0 Sodium 136 Potassium 3.3 L Chloride 96 L Carbon Dioxide 35.0 H Anion Gap 5 BUN 12 Creatinine 0.70 Estim Creat Clear Calc 93.54 Est GFR (MDRD) Af Amer 149 Est GFR (MDRD) Non-Af 123 BUN/Creatinine Ratio 17.2 Glucose 87 Calcium 8.9 Total Bilirubin 0.30 AST 12 L ALT 10 L Alkaline Phosphatase 88 Total Protein 6.7 Albumin 2.3 L Globulin 4.4 H Albumin/Globulin Ratio 0.5 L POC Glucose 91 ABG Data ABG results: ABG 12/06/20 07:11 Specimen Type ART Sample Site L Radial pH 7.42 Bicarbonate Actual 29.7 H Total CO2 31 Base Excess 5 H O2 Saturation 88 L ABG pCO2 46.0 H ABG pO2 55 L Alexander Test Positive O2 Delivery Device Cannula Liter Flow 4.0 Radiography Diagnostic Testing: Radiology Impression Chest X-Ray 12/06/20 09:18 IMPRESSION: Stable soft tissue density in the left lung apex with retraction of the left hilum. Findings suggestive of new atelectasis and/or infiltrate at the left lung base. Stable blunting of left costophrenic angle. Electronically Signed: Baljinder Olivo MD at 9:38 EDT , Service support , Physical Exam Const no limitations Constitutional Narrative: lethargic, minimally responsive, moving all extremities spontaneously General Appearance: cooperative, comfortable and well kempt Exam Limitations: no limitations HEENT normocephalic, head/scalp atraumatic and moist oral mucous membranes Head and Scalp: normocephalic Eyes PERRL, EOMs intact bilaterally, conjunctivae normal and no scleral icterus General Eye: normal appearance of both eyes Periorbital: periorbital findings normal Neck no lymphadenopathy, supple, no meningeal signs, no JVD and no carotid bruits General: trachea midline Thyroid: thyroid normal Resp normal air movement Resp Narrative: diminished breath sounds bibasally, no wheezes or crackles. On 4L of oxygen Auscultation: Negative for crackles, rales, rhonchi or wheezes Cardio regular rate, regular rhythm, S1 normal heart sound, S2 normal heart sound, no murmurs and no JVD Peripheral Pulses: pulses 2+ throughout GI normal to inspection, nondistended, normoactive bowel sounds, soft to palpation, non-tender and non-distended; Negative for hepatosplenomegaly Auscultation: normoactive bowel sounds Extremity normal to inspection, full ROM and no clubbing, cyanosis or edema Peripheral Pulses: Yes pulses 2+ throughout Skin no rashes or lesions noted, no wounds and no petechiae Neuro oriented x3, CN's II-XII intact bilaterally and moves all extremities Neuro Narrative: lethargic, minimally responsive, moves all extremities Sensorium / Orientation: awake and alert Speech: speech normal Motor Exam: strength 5/5 throughout Psych mental status grossly normal, affect normal and denies hallucinations Assessment & Plan Assessment/Plan (1) EVERARDO (acute kidney injury): (2) Encephalopathy: (3) Acetaminophen toxicity: PLAN: #Acute acetaminophen toxicity * resolved. * completed a bag of N acetyl cysteine * stable * #Acute metabolic encephalopathy due to acute alcohol withdrawal * still very confused and minimally responsive. * phenobarbital discontinued as that may be contributing to his symptoms * monitor CIWA score * CT of the brain was negative. * #Acute alcohol withdrawal * phenobarbital discontinued due to lethargy and minimal responsiveness. * on folic acid, thiamine and multivite * #Sepsis likely due to pneumonia * wbc up to 16.5 today * there is no clear evidence of infection. * may also be due to the acute alcohol withdrawal * CTA chest on admission showed an oval 7.5 x 3.2cm x 4.4cm mass with peripheral increased density which is better organized and better defined in left lung, compared to the previous study. This is suspicious for pneumonia or residual neoplasm. Patchy ground glass opacities in the inferior aspect of the right upper lobe and rightr middle lobe, compared to prior. * CXR pending today * on IV vancomycin and zosyn. blood cultures pending * #Hypokalemia: K is 3.3. Will replace and monitor #Hyperlipidemia: On statins #Type 2 diabetes mellitus: On sitagliptin. Insulin sliding scale. Checks AC at bedtime. #History of lung cancer: Stable #Hypothyroidism: On Synthroid #Nicotine dependence: Nicotine patch #DVT prophylaxis: Lovenox Charges/Coding Visit Charges Inpatient E&M: 30421 Subs Hosp L3
[2020-12-06] MEDS: Vancomycin IV 1,000 MG/200 ML BAG 200 MG IV ×2 (11:20→23:23)
[2020-12-06 11:45] LABS: Bedside Glucose 88 mg/dL (70-110)
--- NOTE | 2020-12-06 14:21 | NURSING ---
pt restless in bed continues to roll towards side of bed placing arms and legs over side rail. pulling off bp cuff and spo2 monitor also pulling on west. pt not responding to questions asked by this nurse. While providing incontinence care pt will push against staff and side rails. pt has eyes closed during all care. Resting in bed with bed alarm and call light within reach. Will continue to monitor.
[2020-12-06 18:05] LABS: Bedside Glucose 96 mg/dL (70-110)
[2020-12-06 23:30] LABS: Bedside Glucose 92 mg/dL (70-110)
[2020-12-07] VITALS (32 sets, daily range): BP systolic 132–180; BP diastolic 77–103; PULSE 78–99; RESP 19–85; TEMP 36.1–36.5; O2SAT 85–100
--- NOTE | 2020-12-07 02:06 | PCM.RX.CS ---
Consult Pharmacy has been consulted to manage selected antiobiotic: Vancomycin Type of Consult: Follow-up Labs: Sodium 136 mmol/L (136-145) 12/06/20 04:30 Potassium 3.3 mmol/L (3.5-5.1) L 12/06/20 04:30 Chloride 96 mmol/L (98-107) L 12/06/20 04:30 Carbon Dioxide 35.0 mmol/L (21.0-32.0) H 12/06/20 04:30 Anion Gap 5 (5-15) 12/06/20 04:30 BUN 12 mg/dL (7-18) 12/06/20 04:30 Creatinine 0.70 mg/dL (0.70-1.30) 12/06/20 04:30 Est GFR (MDRD) Af Amer 149 mL/min (>60) 12/06/20 04:30 Est GFR (MDRD) Non-Af 123 mL/min (>60) 12/06/20 04:30 BUN/Creatinine Ratio 17.2 RATIO (10-20) 12/06/20 04:30 Glucose 87 mg/dL (74-106) 12/06/20 04:30 Goal Trough: 15-20 mcg/mL Pharmacy Plan for Drug Dosing: Pharmacy Service will continue to monitor and adjust dosing as required. TROUGH NOT DRAWN PRIOR TO DOSE GIVEN, DRAW TROUGH PRIOR TO NEXT DOSE Follow-Up Labs: Trough Vancomycin Labs to be done on [date and time ordered]: 12/07 @ 7283
[2020-12-07 04:24] LABS: Absolute Lymphocyte Count 0.58 X10^3/uL (0.83-4.51); Absolute Neutrophil Count 12.3 X10^3/uL (2.0-7.7); Basophil# 0.04 X10^3/uL; Basophil% 0.3 % (0-1); Eosinophil# 0.14 X10^3/uL; Hematocrit 43.2 % (40-54); Lymphocyte # 0.58 X10^3/ul (0.83-4.51); Lymphocyte % 4.2 % (19-41); Mean Corp Hgb Conc 32.4 g/dL (32-36); Mean Corpuscular Hgb 29.8 pg (27.0-32.0); Mean Corpuscular Volume 91.9 fL (80-94); Mean Platelet Vol. 10.3 fl (6.2-12.0); Monocyte# 0.73 X10^3/uL; Monocyte% 5.3 % (0-10); NRBC Flagged by Analyzer 0 % (0-5); Neutrophil # 12.31 X10^3/uL (2.7-7.7); Neutrophil % 88.8 % (47-70); POSITIVE DIFFERENTIAL YES; Platelet Count 329 K/mm3 (150-450); RBC Distribution Width CV 15.6 % (11.6-14.6); RBC Distribution Width SD 52.8 fl (35.1-43.9); White Blood Count 13.9 K/mm3 (4.4-11.0)
[2020-12-07 04:25] LABS: Differential Indicated SCAN CRITERIA MET
[2020-12-07 04:42] LABS: ALB/GLOB Ratio 0.5 RATIO (0.9-2.4); AST(SGOT) 14 U/L (15-37); Alanine Aminotransfer ALT/SGPT 7 U/L (16-61); Albumin, Serum 2.4 g/dL (3.2-5.0); Alkaline Phosphatase 91 U/L (45-117); Anion Gap 8 (5-15); BUN 8 mg/dL (7-18); BUN/Creat Ratio 11.9 RATIO (10-20); Calcium,Total 9.3 mg/dL (8.5-10.1); Chloride 92 mmol/L (98-107); Creatinine, Serum 0.67 mg/dL (0.70-1.30); EST Glomerular Filtration Rate 129 mL/min (>60); Est Glom Filt Rate - Afr Amer 156 mL/min (>60); Estimated Creatinine Clearance 99.62 ml/min; Globulin 4.8 g/dL (2.2-4.2); Glucose 77 mg/dL (74-106); Potassium 3.4 mmol/L (3.5-5.1); Protein, Total 7.2 g/dL (6.4-8.2); Sodium Level 130 mmol/L (136-145)
[2020-12-07] MEDS: Potassium Chloride 10mEq/100mL 10 MEQ/100 ML IV.SOLN. 100 MEQ IV BOLUS ×4 (05:13→08:45)
[2020-12-07] MEDS: 0.9% Saline Lock 10 ML Syringe IV ×4 (05:14→22:06)
[2020-12-07 05:21] LABS: Bedside Glucose 78 mg/dL (70-110)
[2020-12-07] MEDS: CHLORHEXIDINE GLUC 2% CLOTH 1 EACH TOWELETTE TOPICAL (05:25)
[2020-12-07] MEDS: LORazepam 2 MG/ML Syringe IV ×2 (06:06→09:38)
--- NOTE | 2020-12-07 06:15 | PCM.PN.INT ---
Assessment & Plan Assessment/Plan (1) Acetaminophen toxicity: PLAN: RECOMMENDATIONS: 1. Continue as needed Ativan per CIAK protocol. 2. Continue thiamine and folate repletion. 3. Electrolyte repletion as needed. 4. Continue nicotine replacement therapy. 5. Continue aerosol treatments as ordered. 6. Continue empiric antimicrobials. 7. Start gentle IV fluid hydration. IMPRESSIONS: 1. Acetaminophen toxicity Resolved. The patient presented to the hospital with encephalopathy and was subsequently found to have an elevated acetaminophen level. However, the exact time from ingestion was not known. Liver function profile was within normal limits as well as coags. N-acetylcysteine was started in the emergency department. The patient's acetaminophen level subsequently normalized and the N-acetylcysteine was discontinued. 2. Encephalopathy The patient's presenting encephalopathy was felt to be the consequence of opiates, as the patient responded to Narcan. However, more recently, the patient's confusion is likely the consequence of acute alcohol withdrawal and prior utilization of phenobarbital. 3. Acute alcohol withdrawal Continue management per CIAK protocol with as needed Ativan for now. Continue thiamine and folate repletion. 4. Acute kidney injury Resolved. Likely prerenal in etiology. Continue to monitor urine output. No current indication for renal replacement therapy. 5. Chronic tobacco dependency Tobacco cessation counseling was previously provided. Continue nicotine replacement therapy. 6. Hyponatremia/hypochloremia/hypokalemia Start gentle IV fluid hydration with potassium supplementation. Recheck BMP in the morning. 7. 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 Continue home medications as indicated. This note was generated with [employer] dictation software. It may contain incorrect words, spelling, and punctuation that were not noted in checking the note before signing. Subjective Subjective The patient was seen and examined at the bedside this morning. Events from the last 24 hours have been reviewed. The patient is currently afebrile, hemodynamically stable and maintaining appropriate oxygen saturations on 3 L/min via nasal cannula. He is currently documented to be overall net -2.2 L for the hospital admission. The patient only received a one-time dose of Ativan overnight. CIWA score was last documented to be 8. White count is down this morning to 14,000. Sodium is low at 130 with a potassium of 3.4. Objective Data Objective Data The patient's most recent lab work, culture data and imaging studies have all been personally reviewed. Infectious work-up has been unrevealing to date. Vital Signs: Vital Signs Temp Pulse Resp BP Pulse Ox 97.0 F L 96 21 H 132/102 H 93 12/07/20 04:00 12/07/20 05:00 12/07/20 05:00 12/07/20 05:00 12/07/20 05:00 Oxygen Flow Rate (L/min) 3 Oxygen Delivery Method Nasal Cannula Weight: 127 lb 10.362 oz Body Mass Index (BMI) 20.7 Intake & Output: Intake and Output for Last 24 Hours 12/05/20 12/06/20 12/07/20 23:59 23:59 23:59 Intake Total 701.2 / 701.2 1219.7 / 1219.7 304 / 304 Output Total 640 / 840 1100 / 1500 825 / 825 Balance 61.2 / -138.8 119.7 / -280.3 -521 / -521 Lab / Micro Data Attestation: I reviewed the patient's lab results. Result Diagrams: 12/07/20 04:15 12/07/20 04:15 Labs: Laboratory Results - last 24 hr 12/06/20 12/06/20 12/06/20 06:11 11:28 17:52 WBC RBC Hgb Hct MCV MCH MCHC RDW Std Deviation RDW Coeff of Sophie Plt Count MPV Immature Gran % (Auto) Neut % (Auto) Lymph % (Auto) [place] % (Auto) Eos % (Auto) Baso % (Auto) Absolute Neuts (auto) Absolute Lymphs (auto) Nucleated RBC % Sodium Potassium Chloride Carbon Dioxide Anion Gap BUN Creatinine Estim Creat Clear Calc Est GFR (MDRD) Af Amer Est GFR (MDRD) Non-Af BUN/Creatinine Ratio Glucose Calcium Total Bilirubin AST ALT Alkaline Phosphatase Total Protein Albumin Globulin Albumin/Globulin Ratio POC Glucose 91 88 96 12/06/20 12/07/20 12/07/20 23:26 04:15 04:15 WBC 13.9 H RBC 4.70 Hgb 14.0 Hct 43.2 MCV 91.9 MCH 29.8 MCHC 32.4 RDW Std Deviation 52.8 H RDW Coeff of Sophie 15.6 H Plt Count 329 MPV 10.3 Immature Gran % (Auto) 0.400 Neut % (Auto) 88.8 H Lymph % (Auto) 4.2 L [place] % (Auto) 5.3 Eos % (Auto) 1.0 Baso % (Auto) 0.3 Absolute Neuts (auto) 12.3 H Absolute Lymphs (auto) 0.58 L Nucleated RBC % 0 Sodium 130 L Potassium 3.4 L Chloride 92 L Carbon Dioxide 30.0 Anion Gap 8 BUN 8 Creatinine 0.67 L Estim Creat Clear Calc 99.62 Est GFR (MDRD) Af Amer 156 Est GFR (MDRD) Non-Af 129 BUN/Creatinine Ratio 11.9 Glucose 77 Calcium 9.3 Total Bilirubin 0.50 AST 14 L ALT 7 L Alkaline Phosphatase 91 Total Protein 7.2 Albumin 2.4 L Globulin 4.8 H Albumin/Globulin Ratio 0.5 L POC Glucose 92 12/07/20 05:16 WBC RBC Hgb Hct MCV MCH MCHC RDW Std Deviation RDW Coeff of Sophie Plt Count MPV Immature Gran % (Auto) Neut % (Auto) Lymph % (Auto) [place] % (Auto) Eos % (Auto) Baso % (Auto) Absolute Neuts (auto) Absolute Lymphs (auto) Nucleated RBC % Sodium Potassium Chloride Carbon Dioxide Anion Gap BUN Creatinine Estim Creat Clear Calc Est GFR (MDRD) Af Amer Est GFR (MDRD) Non-Af BUN/Creatinine Ratio Glucose Calcium Total Bilirubin AST ALT Alkaline Phosphatase Total Protein Albumin Globulin Albumin/Globulin Ratio POC Glucose 78 ABG Data ABG results: ABG 12/06/20 07:11 Specimen Type ART Sample Site L Radial pH 7.42 Bicarbonate Actual 29.7 H Total CO2 31 Base Excess 5 H O2 Saturation 88 L ABG pCO2 46.0 H ABG pO2 55 L Alexander Test Positive O2 Delivery Device Cannula Liter Flow 4.0 Radiography Diagnostic Testing: Radiology Impression Chest X-Ray 12/06/20 09:18 IMPRESSION: Stable soft tissue density in the left lung apex with retraction of the left hilum. Findings suggestive of new atelectasis and/or infiltrate at the left lung base. Stable blunting of left costophrenic angle. Electronically Signed: Baljinder Olivo MD at 9:38 EDT , Service support , Physical Exam Const no apparent distress Constitutional Narrative: The patient will not open his eyes to verbal stimulation but does respond to noxious/painful stimulation. The patient is difficult to redirect. General Appearance: lethargic HEENT normocephalic and head/scalp atraumatic Eyes PERRL Neck supple General: trachea midline Resp normal respiratory effort Effort and Inspection: tachypneic Auscultation: Negative for rales, rhonchi or wheezes Cardio S1 normal heart sound and S2 normal heart sound Rate: tachycardic GI normal to inspection, nondistended, normoactive bowel sounds Extremity no clubbing, cyanosis or edema Skin no rashes or lesions noted Neuro no focal motor deficits Sensorium / Orientation: lethargic Psych Psych Narrative: Intermittently tremulous and restless in bed. Charges/Coding Visit Charges Inpatient E&M: 87516 Subs Hosp L3
[2020-12-07] MEDS: Potassium Chloride 40 MEQ in 0.45% Normal Saline 1,000 ML 100 MEQ IV ×2 (06:53→16:46)
[2020-12-07] MEDS: Enoxaparin 40 MG/0.4 ML Syringe SC (09:12)
[2020-12-07] MEDS: Famotidine 200 MG/20 ML MDV 20 MG in 0.9% Normal Saline (Pres. free 8 ML 300 MG IV ×2 (09:32→22:00)
--- NOTE | 2020-12-07 10:23 | PN.HOSP_ITS ---
Subjective Subjective Patient seen and examined. He still remains confused and lethargic. he is off hte phenobarbital drip. Unable to do review of systems on account of his confusion. Objective Data Objective Data Vital Signs: Vital Signs Temp Pulse Resp BP Pulse Ox 97.4 F L 95 25 H 154/84 H 98 12/07/20 08:00 12/07/20 09:00 12/07/20 09:00 12/07/20 09:00 12/07/20 09:05 Oxygen Flow Rate (L/min) 2 Oxygen Delivery Method Nasal Cannula Weight: 127 lb 10.362 oz Body Mass Index (BMI) 20.7 Intake & Output: Intake and Output for Last 24 Hours 12/05/20 12/06/20 12/07/20 23:59 23:59 23:59 Intake Total 701.2 / 701.2 1219.7 / 1219.7 654 / 654 Output Total 640 / 840 1100 / 1500 825 / 825 Balance 61.2 / -138.8 119.7 / -280.3 -171 / -171 Lab / Micro Data Result Diagrams: 12/07/20 04:15 12/07/20 04:15 Labs: Laboratory Results - last 24 hr 12/06/20 12/06/20 12/06/20 11:28 17:52 23:26 WBC RBC Hgb Hct MCV MCH MCHC RDW Std Deviation RDW Coeff of Sophie Plt Count MPV Immature Gran % (Auto) Neut % (Auto) Lymph % (Auto) [place] % (Auto) Eos % (Auto) Baso % (Auto) Absolute Neuts (auto) Absolute Lymphs (auto) Nucleated RBC % Sodium Potassium Chloride Carbon Dioxide Anion Gap BUN Creatinine Estim Creat Clear Calc Est GFR (MDRD) Af Amer Est GFR (MDRD) Non-Af BUN/Creatinine Ratio Glucose Calcium Total Bilirubin AST ALT Alkaline Phosphatase Total Protein Albumin Globulin Albumin/Globulin Ratio POC Glucose 88 96 92 12/07/20 12/07/20 12/07/20 04:15 04:15 05:16 WBC 13.9 H RBC 4.70 Hgb 14.0 Hct 43.2 MCV 91.9 MCH 29.8 MCHC 32.4 RDW Std Deviation 52.8 H RDW Coeff of Sophie 15.6 H Plt Count 329 MPV 10.3 Immature Gran % (Auto) 0.400 Neut % (Auto) 88.8 H Lymph % (Auto) 4.2 L [place] % (Auto) 5.3 Eos % (Auto) 1.0 Baso % (Auto) 0.3 Absolute Neuts (auto) 12.3 H Absolute Lymphs (auto) 0.58 L Nucleated RBC % 0 Sodium 130 L Potassium 3.4 L Chloride 92 L Carbon Dioxide 30.0 Anion Gap 8 BUN 8 Creatinine 0.67 L Estim Creat Clear Calc 99.62 Est GFR (MDRD) Af Amer 156 Est GFR (MDRD) Non-Af 129 BUN/Creatinine Ratio 11.9 Glucose 77 Calcium 9.3 Total Bilirubin 0.50 AST 14 L ALT 7 L Alkaline Phosphatase 91 Total Protein 7.2 Albumin 2.4 L Globulin 4.8 H Albumin/Globulin Ratio 0.5 L POC Glucose 78 Physical Exam Const no limitations Constitutional Narrative: lethargic, minimally responsive, moving all extremitie s spontaneously General Appearance: cooperative, comfortable and well kempt Exam Limitations: no limitations HEENT normocephalic, head/scalp atraumatic and moist oral mucous membranes Eyes PERRL, EOMs intact bilaterally, conjunctivae normal and no scleral icterus General Eye: normal appearance of both eyes Periorbital: periorbital findings normal Neck no lymphadenopathy, supple, no meningeal signs, no JVD and no carotid bruits General: trachea midline Thyroid: thyroid normal Resp normal air movement Resp Narrative: diminished breath sounds bibasally, no wheezes or crackles. On 2L of oxygen Auscultation: Negative for crackles, rales, rhonchi or wheezes Cardio regular rate, regular rhythm, S1 normal heart sound, S2 normal heart sound, no murmurs and no JVD Peripheral Pulses: pulses 2+ throughout GI normal to inspection, nondistended, normoactive bowel sounds, soft to palpation, non-tender and non-distended; Negative for hepatosplenomegaly Auscultation: normoactive bowel sounds Extremity normal to inspection, full ROM and no clubbing, cyanosis or edema Skin no rashes or lesions noted, no wounds and no petechiae Neuro oriented x3, CN's II-XII intact bilaterally and moves all extremities Neuro Narrative: lethargic, minimally responsive, moves all extremities Sensorium / Orientation: awake and alert Speech: speech normal Motor Exam: strength 5/5 throughout Psych mental status grossly normal, affect normal and denies hallucinations Assessment & Plan Assessment/Plan (1) EVERARDO (acute kidney injury): (2) Encephalopathy: (3) Acetaminophen toxicity: PLAN: #Acute acetaminophen toxicity * resolved. * #Acute metabolic encephalopathy due to acute alcohol withdrawal * still very confused and minimally responsive. * phenobarbital discontinued * monitor CIWA score * CT of the brain was negative. * #Acute alcohol withdrawal * phenobarbital discontinued due to lethargy and minimal responsiveness. * on folic acid, thiamine and multivites * #Sepsis likely due to pneumonia * wbc down to 13.9 * there is no clear evidence of infection. * may also be due to the acute alcohol withdrawal * CTA chest on admission showed an oval 7.5 x 3.2cm x 4.4cm mass with peripheral increased density which is better organized and better defined in left lung, compared to the previous study. This is suspicious for pneumonia or residual neoplasm. Patchy ground glass opacities in the inferior aspect of the right upper lobe and right middle lobe, compared to prior * CXR done yesterday showed stable soft tissue density in the left lung apex with retraction of the left hilum and findings suggestive of new atelectasis and/or infiltrate at the left lung base. * on IV vancomycin and zosyn. * blood cultures pending * #Hypokalemia: K is 3.4. Will replace and monitor #Hyperlipidemia: On statins #Type 2 diabetes mellitus: On sitagliptin. Insulin sliding scale. Checks AC at bedtime. #History of lung cancer: Stable #Hypothyroidism: On Synthroid #Nicotine dependence: Nicotine patch #DVT prophylaxis: Lovenox Charges/Coding Visit Charges Inpatient E&M: 46393 [facility] Hosp L3
[2020-12-07 10:51] LABS: Vancomycin, Trough Level 19.2 ug/mL (5.0-15.0)
[2020-12-07] MEDS: Vancomycin IV 1,000 MG/200 ML BAG 200 MG IV ×2 (11:21→22:04)
[2020-12-07 11:26] LABS: Bedside Glucose 95 mg/dL (70-110)
--- NOTE | 2020-12-07 12:21 | PCM.RX.CS ---
Consult Pharmacy has been consulted to manage selected antiobiotic: Vancomycin Type of Consult: Follow-up Labs: Sodium 130 mmol/L (136-145) L 12/07/20 04:15 Potassium 3.4 mmol/L (3.5-5.1) L 12/07/20 04:15 Chloride 92 mmol/L (98-107) L 12/07/20 04:15 Carbon Dioxide 30.0 mmol/L (21.0-32.0) 12/07/20 04:15 Anion Gap 8 (5-15) 12/07/20 04:15 BUN 8 mg/dL (7-18) 12/07/20 04:15 Creatinine 0.67 mg/dL (0.70-1.30) L 12/07/20 04:15 Est GFR (MDRD) Af Amer 156 mL/min (>60) 12/07/20 04:15 Est GFR (MDRD) Non-Af 129 mL/min (>60) 12/07/20 04:15 BUN/Creatinine Ratio 11.9 RATIO (10-20) 12/07/20 04:15 Glucose 77 mg/dL (74-106) 12/07/20 04:15 Vancomycin Trough 19.2 ug/mL (5.0-15.0) H 12/07/20 09:55 Pharmacy Plan for Drug Dosing: VANCOMYCIN LEVEL RECEIVED Current Vancomycin Dose: 1000mg iv q12h (11,23) Number of Doses Received: 1500mg x1 on 12/05/20, 1000mg x4 doses Vancomycin Level: 19.2 Hours Since Last Dose: 10.5 Renal Function: SrCr 0.67 Renal Function Trend: SrCr stable Lab/Micro: Vancomycin Plan/Comments: trough was missed on 12/06/20 at 2230 and was retimed for 12/07/20 at 1030. Pt is within ordered goal range of 15-20, and since the level is before the 5th total dose it is more reflective of steady state. recommend continuing current dose of 1000mg iv q12h and checking another trough after 3 more doses Pending Level: 12/08/20 at 2230 Pharmacy Service will continue to monitor and adjust dosing as required. Follow-Up Labs: Trough Vancomycin - 12/08/20 at 2230
[2020-12-07 17:00] LABS: Bedside Glucose 85 mg/dL (70-110)
[2020-12-07 23:50] LABS: Bedside Glucose 106 mg/dL (70-110)
[2020-12-08] VITALS (25 sets, daily range): BP systolic 132–172; BP diastolic 81–116; PULSE 80–97; RESP 17–26; TEMP 36.1–36.6; O2SAT 90–100
[2020-12-08] MEDS: Enalaprilat 1.25 MG/ML Vial IV ×4 (00:47→17:30)
[2020-12-08] MEDS: 0.9% Saline Lock 10 ML Syringe IV ×4 (00:47→22:09)
[2020-12-08] MEDS: Potassium Chloride 40 MEQ in 0.45% Normal Saline 1,000 ML 100 MEQ IV (02:56)
[2020-12-08 03:54] LABS: Absolute Lymphocyte Count 0.61 X10^3/uL (0.83-4.51); Absolute Neutrophil Count 12.5 X10^3/uL (2.0-7.7); Basophil# 0.05 X10^3/uL; Basophil% 0.4 % (0-1); Eosinophil# 0.17 X10^3/uL; Eosinophils% 1.2 % (0-5); Hematocrit 37.3 % (40-54); Hemoglobin 12.4 g/dL (13.0-16.5); Lymphocyte # 0.61 X10^3/ul (0.83-4.51); Lymphocyte % 4.3 % (19-41); Mean Corp Hgb Conc 33.2 g/dL (32-36); Mean Corpuscular Hgb 30.2 pg (27.0-32.0); Mean Platelet Vol. 9.8 fl (6.2-12.0); Monocyte# 0.77 X10^3/uL; Monocyte% 5.4 % (0-10); NRBC Flagged by Analyzer 0 % (0-5); Neutrophil # 12.45 X10^3/uL (2.7-7.7); Neutrophil % 88.1 % (47-70); Platelet Count 391 K/mm3 (150-450); RBC Distribution Width CV 15.4 % (11.6-14.6); RBC Distribution Width SD 50.8 fl (35.1-43.9); White Blood Count 14.1 K/mm3 (4.4-11.0)
[2020-12-08 04:13] LABS: ALB/GLOB Ratio 0.5 RATIO (0.9-2.4); AST(SGOT) 12 U/L (15-37); Alanine Aminotransfer ALT/SGPT 8 U/L (16-61); Albumin, Serum 2.2 g/dL (3.2-5.0); Alkaline Phosphatase 78 U/L (45-117); Anion Gap 7 (5-15); BUN 6 mg/dL (7-18); BUN/Creat Ratio 9.6 RATIO (10-20); Calcium,Total 9.1 mg/dL (8.5-10.1); Chloride 94 mmol/L (98-107); Creatinine, Serum 0.63 mg/dL (0.70-1.30); EST Glomerular Filtration Rate 140 mL/min (>60); Est Glom Filt Rate - Afr Amer 169 mL/min (>60); Estimated Creatinine Clearance 105.95 ml/min; Globulin 4.5 g/dL (2.2-4.2); Glucose 76 mg/dL (74-106); Potassium 4.1 mmol/L (3.5-5.1); Protein, Total 6.7 g/dL (6.4-8.2); Sodium Level 132 mmol/L (136-145)
[2020-12-08 05:41] LABS: Bedside Glucose 69 mg/dL (70-110)
--- NOTE | 2020-12-08 05:42 | PCM.PN.INT ---
Assessment & Plan Assessment/Plan (1) Acetaminophen toxicity: PLAN: RECOMMENDATIONS: 1. Continue as needed Ativan per CIWA protocol. 2. Continue thiamine and folate repletion. 3. Check ammonia, TSH and ABG. 4. Transition to dextrose containing supplemental IV fluids given hypoglycemia noted this morning. 5. Electrolyte repletion as needed. 6. Continue nicotine replacement therapy. 7. Continue aerosol treatments as ordered. 8. Continue empiric antimicrobials. IMPRESSIONS: 1. Acetaminophen toxicity Resolved. The patient presented to the hospital with encephalopathy and was subsequently found to have an elevated acetaminophen level. However, the exact time from ingestion was not known. Liver function profile was within normal limits as well as coags. N-acetylcysteine was started in the emergency department. The patient's acetaminophen level subsequently normalized and the N-acetylcysteine was discontinued. 2. Encephalopathy The patient's presenting encephalopathy was felt to be the consequence of opiates, as the patient responded to Narcan. However, more recently, the patient's confusion was felt to be the consequence of acute alcohol withdrawal and prior utilization of phenobarbital. This morning, will also plan to check TSH, ammonia and arterial blood gas. 3. Acute alcohol withdrawal Continue management per CIWA protocol with as needed Ativan for now. Continue thiamine and folate repletion. 4. Acute kidney injury Resolved. Likely prerenal in etiology. Continue to monitor urine output. No current indication for renal replacement therapy. 5. Chronic tobacco dependency Tobacco cessation counseling was previously provided. Continue nicotine replacement therapy. 6. 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 Continue home medications as indicated. This note was generated with [employer] dictation software. It may contain incorrect words, spelling, and punctuation that were not noted in checking the note before signing. Subjective Subjective The patient was seen and examined at the bedside this morning. Events from the last 24 hours have been reviewed. The patient is currently afebrile, hemodynamically stable and maintaining appropriate oxygen saturations on 3 L/min via nasal cannula. He is currently documented to be overall net -1.9 L for the hospital admission. No overnight issues were identified by the nursing staff. The patient did not require any Ativan overnight. His last CIWA score this morning was documented to be 8. Although the patient is now opening his eyes, he is still quite lethargic. Objective Data Objective Data The patient's most recent lab work, culture data and imaging studies have all been personally reviewed. Infectious work-up has been unrevealing to date. Vital Signs: Vital Signs Temp Pulse Resp BP Pulse Ox 97.4 F L 90 24 H 156/97 H 96 12/08/20 04:00 12/08/20 04:00 12/08/20 04:00 12/08/20 04:00 12/08/20 04:00 Oxygen Flow Rate (L/min) 3 Oxygen Delivery Method Nasal Cannula Weight: 127 lb 6.835 oz Body Mass Index (BMI) 20.7 Intake & Output: Intake and Output for Last 24 Hours 12/06/20 12/07/20 12/08/20 23:59 23:59 23:59 Intake Total 1219.7 / 1219.7 2443.28 / 2443.28 1090.17 / 1090.17 Output Total 1100 / 1500 3200 / 3200 580 / 580 Balance 119.7 / -280.3 -756.72 / -756.72 510.17 / 510.17 Lab / Micro Data Attestation: I reviewed the patient's lab results. Result Diagrams: 12/08/20 03:45 12/08/20 03:45 Labs: Laboratory Results - last 24 hr 12/07/20 12/07/20 12/07/20 09:55 11:21 16:50 WBC RBC Hgb Hct MCV MCH MCHC RDW Std Deviation RDW Coeff of Sophie Plt Count MPV Immature Gran % (Auto) Neut % (Auto) Lymph % (Auto) [place] % (Auto) Eos % (Auto) Baso % (Auto) Absolute Neuts (auto) Absolute Lymphs (auto) Nucleated RBC % Sodium Potassium Chloride Carbon Dioxide Anion Gap BUN Creatinine Estim Creat Clear Calc Est GFR (MDRD) Af Amer Est GFR (MDRD) Non-Af BUN/Creatinine Ratio Glucose Calcium Total Bilirubin AST ALT Alkaline Phosphatase Total Protein Albumin Globulin Albumin/Globulin Ratio Vancomycin Trough 19.2 H POC Glucose 95 85 12/07/20 12/08/20 12/08/20 23:46 03:45 03:45 WBC 14.1 H RBC 4.10 L Hgb 12.4 L Hct 37.3 L MCV 91.0 MCH 30.2 MCHC 33.2 RDW Std Deviation 50.8 H RDW Coeff of Sophie 15.4 H Plt Count 391 MPV 9.8 Immature Gran % (Auto) 0.600 Neut % (Auto) 88.1 H Lymph % (Auto) 4.3 L [place] % (Auto) 5.4 Eos % (Auto) 1.2 Baso % (Auto) 0.4 Absolute Neuts (auto) 12.5 H Absolute Lymphs (auto) 0.61 L Nucleated RBC % 0 Sodium 132 L Potassium 4.1 Chloride 94 L Carbon Dioxide 31.0 Anion Gap 7 BUN 6 L Creatinine 0.63 L Estim Creat Clear Calc 105.95 Est GFR (MDRD) Af Amer 169 Est GFR (MDRD) Non-Af 140 BUN/Creatinine Ratio 9.6 L Glucose 76 Calcium 9.1 Total Bilirubin 0.40 AST 12 L ALT 8 L Alkaline Phosphatase 78 Total Protein 6.7 Albumin 2.2 L Globulin 4.5 H Albumin/Globulin Ratio 0.5 L Vancomycin Trough POC Glucose 106 12/08/20 05:34 WBC RBC Hgb Hct MCV MCH MCHC RDW Std Deviation RDW Coeff of Sophie Plt Count MPV Immature Gran % (Auto) Neut % (Auto) Lymph % (Auto) [place] % (Auto) Eos % (Auto) Baso % (Auto) Absolute Neuts (auto) Absolute Lymphs (auto) Nucleated RBC % Sodium Potassium Chloride Carbon Dioxide Anion Gap BUN Creatinine Estim Creat Clear Calc Est GFR (MDRD) Af Amer Est GFR (MDRD) Non-Af BUN/Creatinine Ratio Glucose Calcium Total Bilirubin AST ALT Alkaline Phosphatase Total Protein Albumin Globulin Albumin/Globulin Ratio Vancomycin Trough POC Glucose 69 L Micro: Microbiology 12/05/20 11:10 Blood Culture (Wb) - Right Forearm Blood Culture - Preliminary No growth in 48 hours. 12/05/20 11:00 Blood Culture (Wb) - Left Forearm Blood Culture - Preliminary No growth in 48 hours. Physical Exam Const no apparent distress Constitutional Narrative: The patient will open his eyes to verbal stimulation but does not appear to be actively tracking. He is currently nonverbal and still quite somnolent. General Appearance: lethargic HEENT normocephalic and head/scalp atraumatic Mouth: dry mucous membranes Eyes PERRL and conjunctivae normal Neck supple General: trachea midline Resp normal respiratory effort Effort and Inspection: tachypneic Auscultation: Negative for rales, rhonchi or wheezes Cardio regular rate, regular rhythm, S1 normal heart sound and S2 normal heart sound GI normal to inspection, nondistended, normoactive bowel sounds Extremity no clubbing, cyanosis or edema Skin no rashes or lesions noted Neuro moves all extremities and no focal motor deficits Sensorium / Orientation: lethargic Psych Mood & Affect: flat affect Charges/Coding Visit Charges Inpatient E&M: 26063 Subs Hosp L3
[2020-12-08] MEDS: Dextrose 50%-Water 25 GM/50 ML DISP.SYRIN IV (06:21)
[2020-12-08] MEDS: CHLORHEXIDINE GLUC 2% CLOTH 1 EACH TOWELETTE TOPICAL (06:48)
[2020-12-08] MEDS: Dext 5%-0.45% NS 1,000 ML 125 ML IV ×2 (06:49→13:40)
[2020-12-08 06:50] LABS: Bedside Glucose 207 mg/dL (70-110)
[2020-12-08 07:17] LABS: Thyroid Stim Hormone (TSH) 1.44 uIU/mL (0.358-3.74)
[2020-12-08 07:40] LABS: Allen Test Positive; Base Excess 5 mmol/L (-2 to +2); Bicarbonate 29.5 mmol/L (22-26); Blood Gas Specimen Type ART; O2 Delivery Device Cannula; PO2 48 mmHG (75-100); SITE L Brach; SO2 84 % (95-99); Total Carbon Dioxide 31 mmol/L; pCO2 43.9 mmHg (35-45); pH 7.44 (7.35-7.45)
--- NOTE | 2020-12-08 07:42 | PN.HOSP_ITS ---
Subjective Subjective Patient seen and examined. He still remains very lethargic. Unable to do review of systems because of his lethargy. Review of systems otherewise negative. He is a bit tachypneic today, with RR of 23. Wb is 14.1 today. Objective Data Objective Data Vital Signs: Vital Signs Temp Pulse Resp BP Pulse Ox 97.4 F L 90 23 H 149/90 H 90 12/08/20 04:00 12/08/20 07:00 12/08/20 07:00 12/08/20 07:00 12/08/20 07:00 Oxygen Flow Rate (L/min) 3 Oxygen Delivery Method Nasal Cannula Weight: 127 lb 6.835 oz Body Mass Index (BMI) 20.7 Intake & Output: Intake and Output for Last 24 Hours 12/06/20 12/07/20 12/08/20 23:59 23:59 23:59 Intake Total 1219.7 / 1219.7 2443.28 / 2443.28 1476.84 / 1476.84 Output Total 1100 / 1500 3200 / 3200 855 / 855 Balance 119.7 / -280.3 -756.72 / -756.72 621.84 / 621.84 Lab / Micro Data Result Diagrams: 12/08/20 03:45 12/08/20 03:45 Labs: Laboratory Results - last 24 hr 12/07/20 12/07/20 12/07/20 09:55 11:21 16:50 WBC RBC Hgb Hct MCV MCH MCHC RDW Std Deviation RDW Coeff of Sophie Plt Count MPV Immature Gran % (Auto) Neut % (Auto) Lymph % (Auto) [place] % (Auto) Eos % (Auto) Baso % (Auto) Absolute Neuts (auto) Absolute Lymphs (auto) Nucleated RBC % Sodium Potassium Chloride Carbon Dioxide Anion Gap BUN Creatinine Estim Creat Clear Calc Est GFR (MDRD) Af Amer Est GFR (MDRD) Non-Af BUN/Creatinine Ratio Glucose Calcium Total Bilirubin AST ALT Alkaline Phosphatase Ammonia Total Protein Albumin Globulin Albumin/Globulin Ratio TSH Vancomycin Trough 19.2 H POC Glucose 95 85 12/07/20 12/08/20 12/08/20 23:46 03:45 03:45 WBC 14.1 H RBC 4.10 L Hgb 12.4 L Hct 37.3 L MCV 91.0 MCH 30.2 MCHC 33.2 RDW Std Deviation 50.8 H RDW Coeff of Sophie 15.4 H Plt Count 391 MPV 9.8 Immature Gran % (Auto) 0.600 Neut % (Auto) 88.1 H Lymph % (Auto) 4.3 L [place] % (Auto) 5.4 Eos % (Auto) 1.2 Baso % (Auto) 0.4 Absolute Neuts (auto) 12.5 H Absolute Lymphs (auto) 0.61 L Nucleated RBC % 0 Sodium 132 L Potassium 4.1 Chloride 94 L Carbon Dioxide 31.0 Anion Gap 7 BUN 6 L Creatinine 0.63 L Estim Creat Clear Calc 105.95 Est GFR (MDRD) Af Amer 169 Est GFR (MDRD) Non-Af 140 BUN/Creatinine Ratio 9.6 L Glucose 76 Calcium 9.1 Total Bilirubin 0.40 AST 12 L ALT 8 L Alkaline Phosphatase 78 Ammonia Total Protein 6.7 Albumin 2.2 L Globulin 4.5 H Albumin/Globulin Ratio 0.5 L TSH Vancomycin Trough POC Glucose 106 12/08/20 12/08/20 12/08/20 05:34 06:35 06:35 WBC RBC Hgb Hct MCV MCH MCHC RDW Std Deviation RDW Coeff of Sophie Plt Count MPV Immature Gran % (Auto) Neut % (Auto) Lymph % (Auto) [place] % (Auto) Eos % (Auto) Baso % (Auto) Absolute Neuts (auto) Absolute Lymphs (auto) Nucleated RBC % Sodium Potassium Chloride Carbon Dioxide Anion Gap BUN Creatinine Estim Creat Clear Calc Est GFR (MDRD) Af Amer Est GFR (MDRD) Non-Af BUN/Creatinine Ratio Glucose Calcium Total Bilirubin AST ALT Alkaline Phosphatase Ammonia 12.0 Total Protein Albumin Globulin Albumin/Globulin Ratio TSH 1.44 Vancomycin Trough POC Glucose 69 L 12/08/20 06:47 WBC RBC Hgb Hct MCV MCH MCHC RDW Std Deviation RDW Coeff of Sophie Plt Count MPV Immature Gran % (Auto) Neut % (Auto) Lymph % (Auto) [place] % (Auto) Eos % (Auto) Baso % (Auto) Absolute Neuts (auto) Absolute Lymphs (auto) Nucleated RBC % Sodium Potassium Chloride Carbon Dioxide Anion Gap BUN Creatinine Estim Creat Clear Calc Est GFR (MDRD) Af Amer Est GFR (MDRD) Non-Af BUN/Creatinine Ratio Glucose Calcium Total Bilirubin AST ALT Alkaline Phosphatase Ammonia Total Protein Albumin Globulin Albumin/Globulin Ratio TSH Vancomycin Trough POC Glucose 207 H Micro: Microbiology 12/05/20 11:10 Blood Culture (Wb) - Right Forearm Blood Culture - Preliminar y No growth in 48 hours. 12/05/20 11:00 Blood Culture (Wb) - Left Forearm Blood Culture - Preliminary No growth in 48 hours. ABG Data ABG results: ABG 12/08/20 07:36 Specimen Type ART Sample Site L Brach pH 7.44 Bicarbonate Actual 29.5 H Total CO2 31 Base Excess 5 H O2 Saturation 84 L ABG pCO2 43.9 ABG pO2 48 L Alexander Test Positive O2 Delivery Device Cannula Liter Flow 3.0 Physical Exam Const no limitations Constitutional Narrative: lethargic, moving all extremities spontaneously General Appearance: cooperative, comfortable and well kempt Exam Limitations: no limitations HEENT normocephalic, head/scalp atraumatic and moist oral mucous membranes Head and Scalp: normocephalic Eyes PERRL, EOMs intact bilaterally, conjunctivae normal and no scleral icterus General Eye: normal appearance of both eyes Periorbital: periorbital findings normal Neck no lymphadenopathy, supple, no meningeal signs, no JVD and no carotid bruits General: trachea midline Thyroid: thyroid normal Resp normal air movement Resp Narrative: diminished breath sounds bibasally, no wheezes or crackles. On 2L of oxygen Auscultation: Negative for crackles, rales, rhonchi or wheezes Cardio regular rate, regular rhythm, S1 normal heart sound, S2 normal heart sound, no murmurs and no JVD Peripheral Pulses: pulses 2+ throughout GI normal to inspection, nondistended, normoactive bowel sounds, soft to palpation, non-tender and non-distended; Negative for hepatosplenomegaly Auscultation: normoactive bowel sounds Extremity normal to inspection, full ROM and no clubbing, cyanosis or edema Skin no rashes or lesions noted, no wounds and no petechiae Neuro oriented x3, CN's II-XII intact bilaterally and moves all extremities Neuro Narrative: lethargic, minimally responsive, moves all extremities Sensorium / Orientation: awake and alert Speech: speech normal Motor Exam: strength 5/5 throughout Psych mental status grossly normal, affect normal and denies hallucinations Assessment & Plan Assessment/Plan (1) EVERARDO (acute kidney injury): (2) Encephalopathy: (3) Acetaminophen toxicity: PLAN: #Acute acetaminophen toxicity * resolved. * #Acute metabolic encephalopathy due to acute alcohol withdrawal * still very confused and minimally responsive. * phenobarbital discontinued * monitor CIWA score * CT of the brain was negative. * per discussion with finger cobbler, EEG ordered to evaluate for seizures. * #Acute alcohol withdrawal * phenobarbital discontinued due to lethargy and minimal responsiveness. * on folic acid, thiamine and multivites * #Sepsis likely due to pneumonia * wbc is ~ 14 today * there is no clear evidence of infection. * may also be due to the acute alcohol withdrawal * CXR done showed stable soft tissue density in the left lung apex with retraction of the left hilum and findings suggestive of new atelectasis an d/or infiltrate at the left lung base. * on IV vancomycin and zosyn. * blood cultures showed no growth after 48 hours. * #Hypokalemia: resolved. K is 4.1 today #Hyperlipidemia: On statins #Type 2 diabetes mellitus: On sitagliptin. Insulin sliding scale. Checks AC at bedtime. #History of lung cancer: Stable #Hypothyroidism: On Synthroid #Nicotine dependence: Nicotine patch #DVT prophylaxis: Lovenox Charges/Coding Visit Charges Inpatient E&M: 25498 Subs Hosp L3
[2020-12-08] MEDS: Famotidine 200 MG/20 ML MDV 20 MG in 0.9% Normal Saline (Pres. free 8 ML 300 MG IV ×2 (09:20→22:02)
[2020-12-08] MEDS: Enoxaparin 40 MG/0.4 ML Syringe SC (09:21)
--- NOTE | 2020-12-08 10:19 | TELEMED_ITS ---
[facility] has confirmed receipt of a request for visit. This document confirms receipt of the order initiating the consult. To find the results of the consultation, please view the patient's reports for the scanned Telemed Consult.
[2020-12-08] MEDS: Vancomycin IV 1,000 MG/200 ML BAG 200 MG IV (12:11)
[2020-12-08 12:30] LABS: Bedside Glucose 124 mg/dL (70-110)
[2020-12-08 17:20] LABS: Bedside Glucose 114 mg/dL (70-110)
[2020-12-09] VITALS (21 sets, daily range): BP systolic 121–158; BP diastolic 63–94; PULSE 82–114; RESP 13–20; TEMP 36.1–37; O2SAT 90–99
[2020-12-09 01:15] LABS: Bedside Glucose 106 mg/dL (70-110)
[2020-12-09] MEDS: Dext 5%-0.45% NS 1,000 ML 125 ML IV ×3 (01:46→16:53)
[2020-12-09] MEDS: Enalaprilat 1.25 MG/ML Vial IV ×5 (01:46→23:13)
[2020-12-09] MEDS: 0.9% Saline Lock 10 ML Syringe IV ×3 (01:54→11:21)
[2020-12-09 02:22] LABS: Vancomycin, Trough Level 19.9 ug/mL (5.0-15.0)
[2020-12-09] MEDS: Vancomycin IV 1,000 MG/200 ML BAG 200 MG IV ×2 (02:43→15:04)
--- NOTE | 2020-12-09 03:28 | PCM.RX.CS ---
Consult Pharmacy has been consulted to manage selected antiobiotic: Vancomycin Type of Consult: Follow-up Labs: Sodium 132 mmol/L (136-145) L 12/08/20 03:45 Potassium 4.1 mmol/L (3.5-5.1) 12/08/20 03:45 Chloride 94 mmol/L (98-107) L 12/08/20 03:45 Carbon Dioxide 31.0 mmol/L (21.0-32.0) 12/08/20 03:45 Anion Gap 7 (5-15) 12/08/20 03:45 BUN 6 mg/dL (7-18) L 12/08/20 03:45 Creatinine 0.63 mg/dL (0.70-1.30) L 12/08/20 03:45 Est GFR (MDRD) Af Amer 169 mL/min (>60) 12/08/20 03:45 Est GFR (MDRD) Non-Af 140 mL/min (>60) 12/08/20 03:45 BUN/Creatinine Ratio 9.6 RATIO (10-20) L 12/08/20 03:45 Glucose 76 mg/dL (74-106) 12/08/20 03:45 Vancomycin Trough 19.9 ug/mL (5.0-15.0) H 12/09/20 01:00 Microbiology: Microbiology 12/05/20 11:10 Blood Culture (Wb) - Right Forearm Blood Culture - Preliminary No growth in 48 hours. 12/05/20 11:00 Blood Culture (Wb) - Left Forearm Blood Culture - Preliminary No growth in 48 hours. Goal Trough: 15-20 mcg/mL Pharmacy Plan for Drug Dosing: Pharmacy Service will continue to monitor and adjust dosing as required. TROUGH 19.9 NO CHANGES, RETIME NEXT DOSE DUE TO DOSE GIVEN LATE Follow-Up Labs: Trough Vancomycin Labs to be done on [date and time ordered]: 12/12 @ 5356
[2020-12-09 04:47] LABS: Absolute Lymphocyte Count 0.72 X10^3/uL (0.83-4.51); Absolute Neutrophil Count 11.2 X10^3/uL (2.0-7.7); Basophil# 0.02 X10^3/uL; Basophil% 0.2 % (0-1); Eosinophil# 0.37 X10^3/uL; Eosinophils% 2.8 % (0-5); Hematocrit 39.2 % (40-54); Lymphocyte # 0.72 X10^3/ul (0.83-4.51); Lymphocyte % 5.4 % (19-41); Mean Corp Hgb Conc 33.2 g/dL (32-36); Mean Corpuscular Hgb 29.9 pg (27.0-32.0); Mean Corpuscular Volume 90.1 fL (80-94); Mean Platelet Vol. 9.7 fl (6.2-12.0); Monocyte# 0.86 X10^3/uL; Monocyte% 6.5 % (0-10); NRBC Flagged by Analyzer 0 % (0-5); Neutrophil # 11.21 X10^3/uL (2.7-7.7); Neutrophil % 84.7 % (47-70); Platelet Count 384 K/mm3 (150-450); RBC Distribution Width CV 15.2 % (11.6-14.6); RBC Distribution Width SD 50.4 fl (35.1-43.9); Red Blood Count 4.35 M/mm3 (4.6-6.2); White Blood Count 13.2 K/mm3 (4.4-11.0)
[2020-12-09 05:22] LABS: ALB/GLOB Ratio 0.5 RATIO (0.9-2.4); AST(SGOT) 21 U/L (15-37); Alanine Aminotransfer ALT/SGPT 12 U/L (16-61); Albumin, Serum 2.2 g/dL (3.2-5.0); Alkaline Phosphatase 74 U/L (45-117); Anion Gap 6 (5-15); BUN 2 mg/dL (7-18); BUN/Creat Ratio 2.4 RATIO (10-20); Calcium,Total 9.2 mg/dL (8.5-10.1); Chloride 92 mmol/L (98-107); Creatinine, Serum 0.83 mg/dL (0.70-1.30); EST Glomerular Filtration Rate 101 mL/min (>60); Est Glom Filt Rate - Afr Amer 122 mL/min (>60); Estimated Creatinine Clearance 80.28 ml/min; Globulin 4.4 g/dL (2.2-4.2); Glucose 138 mg/dL (74-106); Potassium 3.1 mmol/L (3.5-5.1); Protein, Total 6.6 g/dL (6.4-8.2); Sodium Level 132 mmol/L (136-145)
[2020-12-09] MEDS: Potassium Chloride 10mEq/100mL 10 MEQ/100 ML IV.SOLN. 100 MEQ IV BOLUS ×4 (06:43→12:33)
--- NOTE | 2020-12-09 07:03 | PCM.PN.INT ---
Assessment & Plan Assessment/Plan (1) Acetaminophen toxicity: PLAN: RECOMMENDATIONS: 1. Attempt to minimize Ativan therapy 2. Possibly discontinue thiamine and folate repletion. 3. Potassium repletion 4. Continue dextrose containing supplemental IV fluids given previous hypoglycemia. 5. Electrolyte repletion as needed. 6. Continue nicotine replacement therapy. 7. Continue aerosol treatments as ordered. 8. Continue empiric antimicrobials. 9. Discontinue midodrine given hypertension and lack of therapy for several day IMPRESSIONS: 1. Acetaminophen toxicity Resolved. The patient presented to the hospital with encephalopathy and was subsequently found to have an elevated acetaminophen level. However, the exact time from ingestion was not known. Liver function profile was within normal limits as well as coags. N-acetylcysteine was started in the emergency department. The patient's acetaminophen level subsequently normalized and the N-acetylcysteine was discontinued. 2. Encephalopathy The patient's presenting encephalopathy was felt to be the consequence of opiates, as the patient responded to Narcan. Patient has been treated for alcohol withdrawal for several days. Will attempt to minimize Ativan therapy. 3. Acute alcohol withdrawal Continue management per CIWA protocol with as needed Ativan for now. Likely okay to discontinue thiamine and folate repletion. 4. Acute kidney injury Resolved. Likely prerenal in etiology. Continue to monitor urine output. No current indication for renal replacement therapy. 5. Chronic tobacco dependency Tobacco cessation counseling was previously provided. Continue nicotine replacement therapy. 6. History of NSCLC with left Pancoast tumor/history of COPD/diabetes mellitus/hypertension/hyperlipidemia Complicates care, management, recovery and prognosis. Continue home medications as indicated. Possibly reinitiate baseline hypertension medications once able to take p.o. This note was generated with [employer] dictation software. It may contain incorrect words, spelling, and punctuation that were not noted in checking the note before signing. Subjective Subjective Patient continues to be very confused, but nursing reports he is more interactive than previous. Patient follows commands briefly and denies any pain. Patient has been able to be weaned to room air. Objective Data Objective Data Vital Signs: Vital Signs Temp Pulse Resp BP Pulse Ox 36.2 C L 88 19 H 132/74 H 95 12/09/20 04:00 12/09/20 06:00 12/09/20 06:00 12/09/20 06:00 12/09/20 06:00 Oxygen Flow Rate (L/min) 1 Oxygen Delivery Method Nasal Cannula Weight: 56.5 kg Body Mass Index (BMI) 20.7 Intake & Output: Intake and Output for Last 24 Hours 12/07/20 12/08/20 12/09/20 23:59 23:59 23:59 Intake Total 2443.28 / 2443.28 3754.29 / 3754.29 250 / 250 Output Total 3200 / 3200 3205 / 3205 1075 / 1075 Balance -756.72 / -756.72 549.29 / 549.29 -825 / -825 Lab / Micro Data Result Diagrams: 12/09/20 04:35 12/09/20 04:35 Labs: Laboratory Results - last 24 hr 12/08/20 12/08/20 12/08/20 06:35 06:35 12:17 WBC RBC Hgb Hct MCV MCH MCHC RDW Std Deviation RDW Coeff of Sophie Plt Count MPV Immature Gran % (Auto) Neut % (Auto) Lymph % (Auto) [place] % (Auto) Eos % (Auto) Baso % (Auto) Absolute Neuts (auto) Absolute Lymphs (auto) Nucleated RBC % Sodium Potassium Chloride Carbon Dioxide Anion Gap BUN Creatinine Estim Creat Clear Calc Est GFR (MDRD) Af Amer Est GFR (MDRD) Non-Af BUN/Creatinine Ratio Glucose Calcium Total Bilirubin AST ALT Alkaline Phosphatase Ammonia 12.0 Total Protein Albumin Globulin Albumin/Globulin Ratio TSH 1.44 Vancomycin Trough POC Glucose 124 H 12/08/20 12/09/20 12/09/20 17:14 01:00 01:10 WBC RBC Hgb Hct MCV MCH MCHC RDW Std Deviation RDW Coeff of Sophie Plt Count MPV Immature Gran % (Auto) Neut % (Auto) Lymph % (Auto) [place] % (Auto) Eos % (Auto) Baso % (Auto) Absolute Neuts (auto) Absolute Lymphs (auto) Nucleated RBC % Sodium Potassium Chloride Carbon Dioxide Anion Gap BUN Creatinine Estim Creat Clear Calc Est GFR (MDRD) Af Amer Est GFR (MDRD) Non-Af BUN/Creatinine Ratio Glucose Calcium Total Bilirubin AST ALT Alkaline Phosphatase Ammonia Total Protein Albumin Globulin Albumin/Globulin Ratio TSH Vancomycin Trough 19.9 H POC Glucose 114 H 106 12/09/20 12/09/20 04:35 04:35 WBC 13.2 H RBC 4.35 L Hgb 13.0 Hct 39.2 L MCV 90.1 MCH 29.9 MCHC 33.2 RDW Std Deviation 50.4 H RDW Coeff of Sophie 15.2 H Plt Count 384 MPV 9.7 Immature Gran % (Auto) 0.400 Neut % (Auto) 84.7 H Lymph % (Auto) 5.4 L [place] % (Auto) 6.5 Eos % (Auto) 2.8 Baso % (Auto) 0.2 Absolute Neuts (auto) 11.2 H Absolute Lymphs (auto) 0.72 L Nucleated RBC % 0 Sodium 132 L Potassium 3.1 L Chloride 92 L Carbon Dioxide 34.0 H Anion Gap 6 BUN 2 L Creatinine 0.83 Estim Creat Clear Calc 80.28 Est GFR (MDRD) Af Amer 122 Est GFR (MDRD) Non-Af 101 BUN/Creatinine Ratio 2.4 L Glucose 138 H Calcium 9.2 Total Bilirubin 0.30 AST 21 ALT 12 L Alkaline Phosphatase 74 Ammonia Total Protein 6.6 Albumin 2.2 L Globulin 4.4 H Albumin/Globulin Ratio 0.5 L TSH Vancomycin Trough POC Glucose Micro: Microbiology 12/05/20 11:10 Blood Culture (Wb) - Right Forearm Blood Culture - Preliminary No growth in 48 hours. 12/05/20 11:00 Blood Culture (Wb) - Left Forearm Blood Culture - Preliminary No growth in 48 hours. ABG Data ABG results: ABG 12/08/20 07:36 Specimen Type ART Sample Site L Brach pH 7.44 Bicarbonate Actual 29.5 H Total CO2 31 Base Excess 5 H O2 Saturation 84 L ABG pCO2 43.9 ABG pO2 48 L Alexander Test Positive O2 Delivery Device Cannula Liter Flow 3.0 Physical Exam Const Constitutional Narrative: The patient will open his eyes to verbal stimulation and appears to track for only brief periods. He is currently mildly verbal Orientation / Consciousness: confused and disoriented Eyes conjunctivae normal Neck full ROM, No nuchal rigidity and no lymphadenopathy Chest inspection of chest normal Chest: symmetrical chest wall rise Resp Effort and Inspection: tachypneic Cardio regular rate and regular rhythm GI normal to inspection, nondistended, normoactive bowel sounds Extremity normal to inspection, normal capillary refill and no clubbing, cyanosis or edema Neuro moves all extremities Psych Psych Narrative: Intermittently tremulous and restless in bed. Activity / Motor Behavior: restless Mood & Affect: flat affect Charges/Coding Visit Charges Inpatient E&M: 83302 Subs Hosp L3
[2020-12-09 07:26] LABS: Bedside Glucose 107 mg/dL (70-110)
--- NOTE | 2020-12-09 07:49 | PCM.PN.HOSP ---
Subjective Subjective Patient was seen and examined. He is slightly awake; not much interactive. No other acute events overnight. Objective Data Objective Data Vital Signs: Vital Signs Temp Pulse Resp BP Pulse Ox 96.9 F L 83 18 147/87 H 92 12/09/20 07:36 12/09/20 07:36 12/09/20 07:36 12/09/20 07:36 12/09/20 07:37 Oxygen Flow Rate (L/min) 1 Oxygen Delivery Method Room Air Weight: 56.5 kg Body Mass Index (BMI) 20.7 Intake & Output: Intake and Output for Last 24 Hours 12/07/20 12/08/20 12/09/20 23:59 23:59 23:59 Intake Total 2443.28 / 2443.28 3754.29 / 3754.29 250 / 250 Output Total 3200 / 3200 3205 / 3205 1075 / 1075 Balance -756.72 / -756.72 549.29 / 549.29 -825 / -825 Lab / Micro Data Result Diagrams: 12/10/20 06:02 12/10/20 06:02 Labs: Laboratory Results - last 24 hr 12/08/20 12/08/20 12/09/20 12:17 17:14 01:00 WBC RBC Hgb Hct MCV MCH MCHC RDW Std Deviation RDW Coeff of Sophie Plt Count MPV Immature Gran % (Auto) Neut % (Auto) Lymph % (Auto) [place] % (Auto) Eos % (Auto) Baso % (Auto) Absolute Neuts (auto) Absolute Lymphs (auto) Nucleated RBC % Sodium Potassium Chloride Carbon Dioxide Anion Gap BUN Creatinine Estim Creat Clear Calc Est GFR (MDRD) Af Amer Est GFR (MDRD) Non-Af BUN/Creatinine Ratio Glucose Calcium Total Bilirubin AST ALT Alkaline Phosphatase Total Protein Albumin Globulin Albumin/Globulin Ratio Vancomycin Trough 19.9 H POC Glucose 124 H 114 H 12/09/20 12/09/20 12/09/20 01:10 04:35 04:35 WBC 13.2 H RBC 4.35 L Hgb 13.0 Hct 39.2 L MCV 90.1 MCH 29.9 MCHC 33.2 RDW Std Deviation 50.4 H RDW Coeff of Sophie 15.2 H Plt Count 384 MPV 9.7 Immature Gran % (Auto) 0.400 Neut % (Auto) 84.7 H Lymph % (Auto) 5.4 L [place] % (Auto) 6.5 Eos % (Auto) 2.8 Baso % (Auto) 0.2 Absolute Neuts (auto) 11.2 H Absolute Lymphs (auto) 0.72 L Nucleated RBC % 0 Sodium 132 L Potassium 3.1 L Chloride 92 L Carbon Dioxide 34.0 H Anion Gap 6 BUN 2 L Creatinine 0.83 Estim Creat Clear Calc 80.28 Est GFR (MDRD) Af Amer 122 Est GFR (MDRD) Non-Af 101 BUN/Creatinine Ratio 2.4 L Glucose 138 H Calcium 9.2 Total Bilirubin 0.30 AST 21 ALT 12 L Alkaline Phosphatase 74 Total Protein 6.6 Albumin 2.2 L Globulin 4.4 H Albumin/Globulin Ratio 0.5 L Vancomycin Trough POC Glucose 106 12/09/20 06:26 WBC RBC Hgb Hct MCV MCH MCHC RDW Std Deviation RDW Coeff of Sophie Plt Count MPV Immature Gran % (Auto) Neut % (Auto) Lymph % (Auto) [place] % (Auto) Eos % (Auto) Baso % (Auto) Absolute Neuts (auto) Absolute Lymphs (auto) Nucleated RBC % Sodium Potassium Chloride Carbon Dioxide Anion Gap BUN Creatinine Estim Creat Clear Calc Est GFR (MDRD) Af Amer Est GFR (MDRD) Non-Af BUN/Creatinine Ratio Glucose Calcium Total Bilirubin AST ALT Alkaline Phosphatase Total Protein Albumin Globulin Albumin/Globulin Ratio Vancomycin Trough POC Glucose 107 Micro: Microbiology 12/05/20 11:10 Blood Culture (Wb) - Right Forearm Blood Culture - Preliminary No growth in 48 hours. 12/05/20 11:00 Blood Culture (Wb) - Left Forearm Blood Culture - Preliminary No growth in 48 hours. Physical Exam Narrative Physical exam: General: Alert, Oriented to self, Cooperative, No apparent distress, Well developed HEENT: Atraumatic Oral: Moist Mucosa Neck: Supple Lungs: Clear to auscultation Cardiovascular: HS I+II, regular, no murmurs Abdomen: Bowel Sounds Present, Soft, Non Tender Extremities: No edema Skin: No rashes, No breakdown Neurological: Grossly intact Assessment & Plan Assessment/Plan (1) Encephalopathy: (2) Acetaminophen toxicity: QUALIFIERS: Encounter type: sequela Injury intent: undetermined intent Qualified Code(s): T39.1X4S - Poisoning by 4-Aminophenol derivatives, undetermined, sequela (3) EVERARDO (acute kidney injury): (4) Essential (primary) hypertension: (5) Non-small cell lung cancer: QUALIFIERS: Laterality: left Qualified Code(s): C34.92 - Malignant neoplasm of unspecified part of left bronchus or lung (6) Tobacco dependence: (7) Malnutrition: QUALIFIERS: Malnutrition type: protein-calorie malnutrition Protein-calorie malnutrition severity: moderate Qualified Code(s): E44.0 - Moderate protein-calorie malnutrition PLAN: 1. Acute acetaminophen toxicity, resolved 2. Acute toxic encephalopathy, persistent, patient has not received any sedatives, will continue to monitor 3. Acute alcohol withdrawal, improved, continue to monitor 4. Acute kidney injury, appears resolved 5. Nicotine replacement, on replacement 6. Rest of chronic medical conditions - including NSCLC, COPD, Type DM, Hypertension, Hyperlipidemia, all remain stable Continue rest of home medications Charges/Coding Visit Charges Inpatient E&M: 66218 Subs Hosp L2
[2020-12-09] MEDS: Enoxaparin 40 MG/0.4 ML Syringe SC (07:56)
[2020-12-09] MEDS: CHLORHEXIDINE GLUC 2% CLOTH 1 EACH TOWELETTE TOPICAL (08:03)
[2020-12-09] MEDS: Famotidine 200 MG/20 ML MDV 20 MG in 0.9% Normal Saline (Pres. free 8 ML 300 MG IV ×2 (08:05→21:45)
[2020-12-09 09:01] LABS: Bedside Glucose 107 mg/dL (70-110)
--- NOTE | 2020-12-09 09:34 | CASEMGMT ---
Pt is still ICU status as of this morning. Should pt's status change, SW will let [facility] know to start precert. SW did call [facility] to let them know will call later with direction as far as when to start the precert. SARAI Banegas
--- NOTE | 2020-12-09 10:46 | CASEMGMT ---
As per physician, pt will be ready for discharge in the next couple of days. MARTY called [facility], faxed updates, let Yan[facility] know to start precert. SARAI Banegas
--- NOTE | 2020-12-09 10:53 | CASEMGMT ---
Social Work Note SW spoke with Yoselyn Henderson at [facility] and updated her on discharge plan of [facility] [place] pending pre-cert. Yoselyn states understanding, would like to be updated when pt discharges. Brittni Weeks FITTER / WELDER, TECHNICAL SERVICES CONSULTANT
[2020-12-09 11:26] LABS: Bedside Glucose 122 mg/dL (70-110)
[2020-12-09 17:41] LABS: Bedside Glucose 151 mg/dL (70-110)
[2020-12-09] MEDS: Atorvastatin Calcium 40 MG Tablet PO (21:41)
--- NOTE | 2020-12-09 22:18 | PCM.RX.CS ---
Consult Pharmacy has been consulted to manage selected antiobiotic: Vancomycin Type of Consult: Follow-up Labs: Sodium 132 mmol/L (136-145) L 12/09/20 04:35 Potassium 3.1 mmol/L (3.5-5.1) L 12/09/20 04:35 Chloride 92 mmol/L (98-107) L 12/09/20 04:35 Carbon Dioxide 34.0 mmol/L (21.0-32.0) H 12/09/20 04:35 Anion Gap 6 (5-15) 12/09/20 04:35 BUN 2 mg/dL (7-18) L 12/09/20 04:35 Creatinine 0.83 mg/dL (0.70-1.30) 12/09/20 04:35 Est GFR (MDRD) Af Amer 122 mL/min (>60) 12/09/20 04:35 Est GFR (MDRD) Non-Af 101 mL/min (>60) 12/09/20 04:35 BUN/Creatinine Ratio 2.4 RATIO (10-20) L 12/09/20 04:35 Glucose 138 mg/dL (74-106) H 12/09/20 04:35 Vancomycin Trough 19.9 ug/mL (5.0-15.0) H 12/09/20 01:00 Microbiology: Microbiology 12/05/20 11:10 Blood Culture (Wb) - Right Forearm Blood Culture - Preliminary No growth in 48 hours. 12/05/20 11:00 Blood Culture (Wb) - Left Forearm Blood Culture - Preliminary No growth in 48 hours. Goal Trough: 15-20 mcg/mL Pharmacy Plan for Drug Dosing: Pharmacy Service will continue to monitor and adjust dosing as required. AFTER REVIEWING, SCr INCREASED TO 0.83 RETIME NEXT TROUGH TO 12/10 PER PREVIOUS TROUGH OF 19.9 Follow-Up Labs: Trough Vancomycin Labs to be done on [date and time ordered]: 12/10 @ 2406
[2020-12-09 23:10] LABS: Bedside Glucose 126 mg/dL (70-110)
[2020-12-10] VITALS (13 sets, daily range): BP systolic 120–154; BP diastolic 67–85; PULSE 78–100; RESP 15–18; TEMP 36.4–36.9; O2SAT 93–96
[2020-12-10] MEDS: Dext 5%-0.45% NS 1,000 ML 125 ML IV ×2 (00:02→06:59)
[2020-12-10] MEDS: QUEtiapine 100 MG Tablet PO (01:20)
[2020-12-10] MEDS: Vancomycin IV 1,000 MG/200 ML BAG 200 MG IV (02:59)
[2020-12-10] MEDS: Levothyroxine 75 MCG Tablet PO (05:46)
[2020-12-10] MEDS: Enalaprilat 1.25 MG/ML Vial IV ×3 (05:46→22:51)
[2020-12-10 06:11] LABS: Bedside Glucose 119 mg/dL (70-110)
[2020-12-10 06:15] LABS: Absolute Lymphocyte Count 0.67 X10^3/uL (0.83-4.51); Absolute Neutrophil Count 7.7 X10^3/uL (2.0-7.7); Basophil# 0.04 X10^3/uL; Basophil% 0.4 % (0-1); Eosinophil# 0.43 X10^3/uL; Eosinophils% 4.5 % (0-5); Hematocrit 35.7 % (40-54); Hemoglobin 11.8 g/dL (13.0-16.5); Lymphocyte # 0.67 X10^3/ul (0.83-4.51); Mean Corp Hgb Conc 33.1 g/dL (32-36); Mean Corpuscular Hgb 29.9 pg (27.0-32.0); Mean Corpuscular Volume 90.6 fL (80-94); Mean Platelet Vol. 9.9 fl (6.2-12.0); Monocyte# 0.72 X10^3/uL; Monocyte% 7.5 % (0-10); NRBC Flagged by Analyzer 0 % (0-5); Neutrophil # 7.68 X10^3/uL (2.7-7.7); Neutrophil % 80.2 % (47-70); Platelet Count 440 K/mm3 (150-450); Red Blood Count 3.94 M/mm3 (4.6-6.2); White Blood Count 9.6 K/mm3 (4.4-11.0)
[2020-12-10 06:44] LABS: ALB/GLOB Ratio 0.5 RATIO (0.9-2.4); AST(SGOT) 14 U/L (15-37); Alanine Aminotransfer ALT/SGPT 8 U/L (16-61); Albumin, Serum 2.1 g/dL (3.2-5.0); Alkaline Phosphatase 65 U/L (45-117); Anion Gap 6 (5-15); BUN 2 mg/dL (7-18); BUN/Creat Ratio 2.3 RATIO (10-20); Chloride 101 mmol/L (98-107); Creatinine, Serum 0.86 mg/dL (0.70-1.30); EST Glomerular Filtration Rate 97 mL/min (>60); Est Glom Filt Rate - Afr Amer 117 mL/min (>60); Estimated Creatinine Clearance 75.47 ml/min; Globulin 4.1 g/dL (2.2-4.2); Glucose 105 mg/dL (74-106); Potassium 3.1 mmol/L (3.5-5.1); Protein, Total 6.2 g/dL (6.4-8.2); Sodium Level 135 mmol/L (136-145)
--- NOTE | 2020-12-10 08:24 | MRI_ITS ---
EXAM: MR HEAD WITHOUT INTRAVENOUS CONTRAST : 1965 CLINICAL INDICATION: Persistent encephalopathy TECHNIQUE: Multiplanar and multisequence MR images of the brain were obtained without intravenous contrast. This report was created using [employer] report generation technology. COMPARISON: CT brain December 02, 2020 FINDINGS: BRAIN AND EXTRA-AXIAL SPACES: Multiple foci of increased T2 signal intensity within the cerebral white consistent with chronic microvascular disease. There is no abnormal diffusion weighted signal intensity to suggest an acute ischemic event. Prominence of the cortical sulci and ventricles related to volume loss change commensurate with the patient's age. No intra- or extra-axial hemorrhage. No intracranial mass or mass effect. Posterior fossa structures are unremarkable. Basal cisterns are patent. SELLA: Unremarkable. Normal sella turcica, pituitary gland, infundibular stalk, optic chiasm and hypothalamus. AUDITORY SYSTEM: Unremarkable. The internal auditory canals are patent. BONES/JOINTS: Unremarkable. No discrete lytic or blastic abnormalities. SINUSES: Unremarkable as visualized. Clear. MASTOID AIR CELLS: Unremarkable as visualized. Clear. ORBITS: Unremarkable as visualized. Both globes, extraocular muscles, optic nerves and retrobulbar fat appear unremarkable. VASCULATURE: Normal vascular flow voids are noted. MRI/Brain without Contrast IMPRESSION: 1. White matter changes suggestive of chronic microvascular disease. 2. No significant interval change. at 1640 Reported and signed by: Brandan Zelaya MD Electronically Signed: Brandan Zelaya MD at 16:39 EDT Tel , Service support ,
--- NOTE | 2020-12-10 08:26 | PCM.PN.HOSP ---
Subjective Subjective Patient was seen and examined. He is much awake. He was compulsive and restless yesterday and was started on Seroquel He appears still lethargic today. Seroquel discontinued Objective Data Objective Data Vital Signs: Vital Signs Temp Pulse Resp BP Pulse Ox 98.4 F 87 18 129/69 H 93 12/10/20 03:34 12/10/20 06:58 12/10/20 03:34 12/10/20 03:34 12/10/20 03:34 Oxygen Flow Rate (L/min) 1 Oxygen Delivery Method Room Air Weight: 56.3 kg Body Mass Index (BMI) 20.7 Intake & Output: Intake and Output for Last 24 Hours 12/08/20 12/09/20 12/10/20 23:59 23:59 23:59 Intake Total 3754.29 / 3754.29 2738.33 / 2858.33 2191.90 / 2191.90 Output Total 3205 / 3205 2525 / 3775 2550 / 2550 Balance 549.29 / 549.29 213.33 / -916.67 -358.10 / -358.10 Lab / Micro Data Result Diagrams: 12/10/20 06:02 12/10/20 06:02 Labs: Laboratory Results - last 24 hr 12/09/20 12/09/20 12/09/20 07:52 11:21 16:52 WBC RBC Hgb Hct MCV MCH MCHC RDW Std Deviation RDW Coeff of Sophie Plt Count MPV Immature Gran % (Auto) Neut % (Auto) Lymph % (Auto) [place] % (Auto) Eos % (Auto) Baso % (Auto) Absolute Neuts (auto) Absolute Lymphs (auto) Nucleated RBC % Sodium Potassium Chloride Carbon Dioxide Anion Gap BUN Creatinine Estim Creat Clear Calc Est GFR (MDRD) Af Amer Est GFR (MDRD) Non-Af BUN/Creatinine Ratio Glucose Calcium Total Bilirubin AST ALT Alkaline Phosphatase Total Protein Albumin Globulin Albumin/Globulin Ratio POC Glucose 107 122 H 151 H 12/09/20 12/10/20 12/10/20 23:04 05:54 06:02 WBC 9.6 RBC 3.94 L Hgb 11.8 L Hct 35.7 L MCV 90.6 MCH 29.9 MCHC 33.1 RDW Std Deviation 50.0 H RDW Coeff of Sophie 15.0 H Plt Count 440 MPV 9.9 Immature Gran % (Auto) 0.400 Neut % (Auto) 80.2 H Lymph % (Auto) 7.0 L [place] % (Auto) 7.5 Eos % (Auto) 4.5 Baso % (Auto) 0.4 Absolute Neuts (auto) 7.7 Absolute Lymphs (auto) 0.67 L Nucleated RBC % 0 Sodium Potassium Chloride Carbon Dioxide Anion Gap BUN Creatinine Estim Creat Clear Calc Est GFR (MDRD) Af Amer Est GFR (MDRD) Non-Af BUN/Creatinine Ratio Glucose Calcium Total Bilirubin AST ALT Alkaline Phosphatase Total Protein Albumin Globulin Albumin/Globulin Ratio POC Glucose 126 H 119 H 12/10/20 06:02 WBC RBC Hgb Hct MCV MCH MCHC RDW Std Deviation RDW Coeff of Sophie Plt Count MPV Immature Gran % (Auto) Neut % (Auto) Lymph % (Auto) [place] % (Auto) Eos % (Auto) Baso % (Auto) Absolute Neuts (auto) Absolute Lymphs (auto) Nucleated RBC % Sodium 135 L Potassium 3.1 L Chloride 101 Carbon Dioxide 28.0 Anion Gap 6 BUN 2 L Creatinine 0.86 Estim Creat Clear Calc 75.47 Est GFR (MDRD) Af Amer 117 Est GFR (MDRD) Non-Af 97 BUN/Creatinine Ratio 2.3 L Glucose 105 Calcium 9.0 Total Bilirubin 0.20 AST 14 L ALT 8 L Alkaline Phosphatase 65 Total Protein 6.2 L Albumin 2.1 L Globulin 4.1 Albumin/Globulin Ratio 0.5 L POC Glucose Micro: Microbiology 12/05/20 11:10 Blood Culture (Wb) - Right Forearm Blood Culture - Preliminary No growth in 48 hours. 12/05/20 11:00 Blood Culture (Wb) - Left Forearm Blood Culture - Preliminary No growth in 48 hours. Physical Exam Narrative Physical exam: General: Alert, Oriented to self only, slightly lethargic, Cooperative, No apparent distress, cachetic HEENT: Atraumatic Oral: Moist Mucosa Neck: Supple Lungs: Clear to auscultation Cardiovascular: HS I+II, regular, no murmurs Abdomen: Bowel Sounds Present, Soft, Non Tender Extremities: No edema Skin: No rashes, No breakdown Neurological: Grossly intact Assessment & Plan Assessment/Plan (1) Encephalopathy: (2) Acetaminophen toxicity: QUALIFIERS: Encounter type: sequela Injury intent: undetermined intent Qualified Code(s): T39.1X4S - Poisoning by 4-Aminophenol derivatives, undetermined, sequela (3) EVERARDO (acute kidney injury): (4) Essential (primary) hypertension: (5) Non-small cell lung cancer: QUALIFIERS: Laterality: left Qualified Code(s): C34.92 - Malignant neoplasm of unspecified part of left bronchus or lung (6) Tobacco dependence: (7) Malnutrition: QUALIFIERS: Malnutrition type: protein-calorie malnutrition Protein-calorie malnutrition severity: moderate Qualified Code(s): E44.0 - Moderate protein-calorie malnutrition PLAN: 1. Acute acetaminophen toxicity, unclear if this was intentional or accidental, resolved 2. Acute toxic encephalopathy, persistent, Seroquel started last night discontinued We will get MRI of the brain to rule out acute stroke as an etiology for the persistent encephalopathy Continue to monitor off sedatives 3. Sepsis secondary to pneumonia, improved X-ray done on 12/06/20 had shown some possible left lung infiltrate We will repeat chest x-ray DC vancomycin and Zosyn, continue on Augmentin to complete a 5-day course 4. Acute alcohol withdrawal, improved, continue to monitor 5. Acute kidney injury, appears resolved 6. Nicotine replacement, on replacement 7. Rest of chronic medical conditions - including NSCLC, COPD, Type DM, Hypertension, Hyperlipidemia, all remain stable Continue rest of home medications 8. Disposition: Discharge planning on-going. Pre-cert for SNF is pending Charges/Coding Visit Charges Inpatient E&M: 21619 Subs Hosp L2
[2020-12-10 09:13] LABS: Phosphorus 3.2 mg/dL (2.5-4.9)
--- NOTE | 2020-12-10 09:27 | PCM.PN.INT ---
Assessment & Plan Assessment/Plan (1) Acetaminophen toxicity: QUALIFIERS: Encounter type: sequela Injury intent: undetermined intent Qualified Code(s): T39.1X4S - Poisoning by 4-Aminophenol derivatives, undetermined, sequela PLAN: RECOMMENDATIONS: 1. Attempt to minimize Ativan therapy 2. Possibly discontinue thiamine and folate repletion. 3. Likely okay to discontinue IV fluids 4. Encourage p.o. intake 5. Hemodynamically stable on room air. Will sign off from a critical care perspective 6. Continue nicotine replacement therapy. 7. Continue aerosol treatments as ordered. IMPRESSIONS: 1. Acetaminophen toxicity Resolved. The patient presented to the hospital with encephalopathy and was subsequently found to have an elevated acetaminophen level. However, the exact time from ingestion was not known. Liver function profile was within normal limits as well as coags. N-acetylcysteine was started in the emergency department. The patient's acetaminophen level subsequently normalized and the N-acetylcysteine was discontinued. 2. Encephalopathy The patient's presenting encephalopathy was felt to be the consequence of opiates, as the patient responded to Narcan. Patient has been treated for alcohol withdrawal for several days. Will attempt to minimize Ativan therapy. Patient appears to be improving at this time. 3. Acute alcohol withdrawal Continue management per CIWA protocol with as needed Ativan for now. Completed thiamine and folate repletion. 4. Acute kidney injury Resolved. Likely prerenal in etiology. Continue to monitor urine output. No current indication for renal replacement therapy. 5. Chronic tobacco dependency Tobacco cessation counseling was previously provided. Continue nicotine replacement therapy. 6. History of NSCLC with left Pancoast tumor/history of COPD/diabetes mellitus/hypertension/hyperlipidemia Complicates care, management, recovery and prognosis. Continue home medications as indicated. Possibly reinitiate baseline hypertension medications once able to take p.o. This note was generated with [employer] dictation software. It may contain incorrect words, spelling, and punctuation that were not noted in checking the note before signing. Subjective Subjective Patient did well overnight. Patient much more interactive today compared to previous. Patient is still somewhat confused, but is denying any pain at this time. Patient is not reporting any muscle cramping. Objective Data Objective Data Vital Signs: Vital Signs Temp Pulse Resp BP Pulse Ox 36.6 C 93 15 120/69 93 12/10/20 09:15 12/10/20 09:15 12/10/20 09:15 12/10/20 09:15 12/10/20 09:15 Oxygen Flow Rate (L/min) 1 Oxygen Delivery Method Room Air Weight: 56.3 kg Body Mass Index (BMI) 20.7 Intake & Output: Intake and Output for Last 24 Hours 12/08/20 12/09/20 12/10/20 23:59 23:59 23:59 Intake Total 3754.29 / 3754.29 2738.33 / 2858.33 2191.90 / 2191.90 Output Total 3205 / 3205 2525 / 3775 2550 / 2550 Balance 549.29 / 549.29 213.33 / -916.67 -358.10 / -358.10 Lab / Micro Data Result Diagrams: 12/10/20 06:02 12/10/20 06:02 Labs: Laboratory Results - last 24 hr 12/09/20 12/09/20 12/09/20 11:21 16:52 23:04 WBC RBC Hgb Hct MCV MCH MCHC RDW Std Deviation RDW Coeff of Sophie Plt Count MPV Immature Gran % (Auto) Neut % (Auto) Lymph % (Auto) [place] % (Auto) Eos % (Auto) Baso % (Auto) Absolute Neuts (auto) Absolute Lymphs (auto) Nucleated RBC % Sodium Potassium Chloride Carbon Dioxide Anion Gap BUN Creatinine Estim Creat Clear Calc Est GFR (MDRD) Af Amer Est GFR (MDRD) Non-Af BUN/Creatinine Ratio Glucose Calcium Phosphorus Total Bilirubin AST ALT Alkaline Phosphatase Ammonia Total Protein Albumin Globulin Albumin/Globulin Ratio POC Glucose 122 H 151 H 126 H 12/10/20 12/10/20 12/10/20 05:54 06:02 06:02 WBC 9.6 RBC 3.94 L Hgb 11.8 L Hct 35.7 L MCV 90.6 MCH 29.9 MCHC 33.1 RDW Std Deviation 50.0 H RDW Coeff of Sophie 15.0 H Plt Count 440 MPV 9.9 Immature Gran % (Auto) 0.400 Neut % (Auto) 80.2 H Lymph % (Auto) 7.0 L [place] % (Auto) 7.5 Eos % (Auto) 4.5 Baso % (Auto) 0.4 Absolute Neuts (auto) 7.7 Absolute Lymphs (auto) 0.67 L Nucleated RBC % 0 Sodium 135 L Potassium 3.1 L Chloride 101 Carbon Dioxide 28.0 Anion Gap 6 BUN 2 L Creatinine 0.86 Estim Creat Clear Calc 75.47 Est GFR (MDRD) Af Amer 117 Est GFR (MDRD) Non-Af 97 BUN/Creatinine Ratio 2.3 L Glucose 105 Calcium 9.0 Phosphorus Total Bilirubin 0.20 AST 14 L ALT 8 L Alkaline Phosphatase 65 Ammonia Total Protein 6.2 L Albumin 2.1 L Globulin 4.1 Albumin/Globulin Ratio 0.5 L POC Glucose 119 H 12/10/20 12/10/20 08:36 08:36 WBC RBC Hgb Hct MCV MCH MCHC RDW Std Deviation RDW Coeff of Sophie Plt Count MPV Immature Gran % (Auto) Neut % (Auto) Lymph % (Auto) [place] % (Auto) Eos % (Auto) Baso % (Auto) Absolute Neuts (auto) Absolute Lymphs (auto) Nucleated RBC % Sodium Potassium Chloride Carbon Dioxide Anion Gap BUN Creatinine Estim Creat Clear Calc Est GFR (MDRD) Af Amer Est GFR (MDRD) Non-Af BUN/Creatinine Ratio Glucose Calcium Phosphorus 3.2 Total Bilirubin AST ALT Alkaline Phosphatase Ammonia 19.0 Total Protein Albumin Globulin Albumin/Globulin Ratio POC Glucose Micro: Microbiology 12/05/20 11:10 Blood Culture (Wb) - Right Forearm Blood Culture - Preliminary No growth in 48 hours. 12/05/20 11:00 Blood Culture (Wb) - Left Forearm Blood Culture - Preliminary No growth in 48 hours. Physical Exam Const Constitutional Narrative: Patient much more interactive today. Patient able to maintain eye contact and follow commands. Orientation / Consciousness: disoriented Eyes conjunctivae normal Neck full ROM, No nuchal rigidity and no lymphadenopathy Chest inspection of chest normal Chest: symmetrical chest wall rise Resp normal respiratory effort, normal air movement and no retractions Auscultation: Negative for rales, rhonchi or wheezes Cardio regular rate and regular rhythm GI normal to inspection, nondistended, normoactive bowel sounds Extremity normal to inspection, normal capillary refill and no clubbing, cyanosis or edema Neuro moves all extremities Psych Psych Narrative: Intermittently tremulous and restless in bed. Activity / Motor Behavior: restless Mood & Affect: flat affect Charges/Coding Visit Charges Inpatient E&M: 96498 Subs Hosp L2
[2020-12-10] MEDS: Multivitamins,Ther W-Minerals Tablet 1 TABLET PO (09:30)
[2020-12-10] MEDS: Aspirin 81 MG TAB.CHEW PO (09:30)
[2020-12-10] MEDS: Citalopram 40 MG TABLET PO (09:30)
[2020-12-10] MEDS: LINAGLIPTIN 5 MG TABLET PO (09:31)
[2020-12-10] MEDS: Enoxaparin 40 MG/0.4 ML Syringe SC (09:31)
--- NOTE | 2020-12-10 09:35 | CASEMGMT ---
DANG VALENTIN NOTE: TONA left jarret/Diane @ [facility] notifying her that plan is for pt to go to [facility] @ d/c and precert is pending. Rufina CHAPMAN RN CM
[2020-12-10] MEDS: Ensure Clear 120 ML Liquid PO ×2 (09:40→22:41)
--- NOTE | 2020-12-10 10:16 | NURSING ---
Patient still confused. Called and spoke with patient's mother, Heather to obtain information regarding MRI questionnaire.
[2020-12-10] MEDS: Famotidine 200 MG/20 ML MDV 20 MG in 0.9% Normal Saline (Pres. free 8 ML 300 MG IV ×2 (10:27→22:41)
[2020-12-10] MEDS: Potassium Chloride 10mEq/100mL 10 MEQ/100 ML IV.SOLN. 100 MEQ IV BOLUS ×4 (10:32→15:27)
[2020-12-10 12:51] LABS: Bedside Glucose 104 mg/dL (70-110)
--- NOTE | 2020-12-10 14:28 | RAD_ITS ---
STUDY: X-RAY CHEST REASON FOR EXAM: Male, 55 years old. SOB, infiltrates TECHNIQUE: Single AP portable view of the chest. COMPARISON: 12/06/2020 FINDINGS: The lungs are clear and expanded. No change in left apical pleural thickening and scarring. Normal size heart. Normal mediastinum and [place]. Normal visualized pulmonary arteries. Normal visualized aortic arch and descending thoracic aorta. Normal visualized thoracic spine. Normal visualized ribs, clavicles, and shoulders. There is no demonstrated abnormality of the visualized soft tissue structures of the upper abdomen. RAD/Chest 1 View (Portable) IMPRESSION: No change from 12/06/2020 Electronically Signed: Glenroy Rainey MD at 7:05 EDT Tel , Service support ,
[2020-12-10] MEDS: 0.9% Saline Lock 10 ML Syringe IV ×2 (15:31→22:59)
[2020-12-10 15:34] LABS: Vancomycin, Trough Level 26.7 ug/mL (5.0-15.0)
[2020-12-10] MEDS: Dext 5%-0.45% NS 1,000 ML 100 ML IV (17:36)
[2020-12-10 17:45] LABS: Bedside Glucose 123 mg/dL (70-110)
[2020-12-10] MEDS: Tamsulosin HCl 0.4 MG Capsule PO (17:45)
[2020-12-10] MEDS: Atorvastatin Calcium 40 MG Tablet PO (22:41)
[2020-12-10] MEDS: Amox/Clavulanate 875 MG Tablet PO (22:41)
[2020-12-11] VITALS (8 sets, daily range): BP systolic 103–156; BP diastolic 62–86; PULSE 85–100; RESP 16–18; TEMP 36.4–37.1; O2SAT 97–99
[2020-12-11 01:16] LABS: Bedside Glucose 108 mg/dL (70-110)
[2020-12-11] MEDS: Dext 5%-0.45% NS 1,000 ML 100 ML IV (02:49)
[2020-12-11] MEDS: Enalaprilat 1.25 MG/ML Vial IV ×2 (06:07→12:16)
[2020-12-11] MEDS: Levothyroxine 75 MCG Tablet PO (06:10)
[2020-12-11 06:17] LABS: Absolute Neutrophil Count 8.4 X10^3/uL (2.0-7.7); Basophil# 0.05 X10^3/uL; Basophil% 0.5 % (0-1); Eosinophil# 0.66 X10^3/uL; Hematocrit 37.5 % (40-54); Hemoglobin 12.4 g/dL (13.0-16.5); Lymphocyte % 8.2 % (19-41); Mean Corp Hgb Conc 33.1 g/dL (32-36); Mean Corpuscular Hgb 29.7 pg (27.0-32.0); Mean Corpuscular Volume 89.9 fL (80-94); Mean Platelet Vol. 9.9 fl (6.2-12.0); Monocyte% 7.3 % (0-10); NRBC Flagged by Analyzer 0 % (0-5); Neutrophil # 8.44 X10^3/uL (2.7-7.7); Neutrophil % 77.4 % (47-70); Platelet Count 527 K/mm3 (150-450); RBC Distribution Width CV 15.4 % (11.6-14.6); RBC Distribution Width SD 51.1 fl (35.1-43.9); Red Blood Count 4.17 M/mm3 (4.6-6.2); White Blood Count 10.9 K/mm3 (4.4-11.0)
[2020-12-11] MEDS: 0.9% Saline Lock 10 ML Syringe IV (06:24)
[2020-12-11 06:36] LABS: Bedside Glucose 100 mg/dL (70-110)
[2020-12-11 06:48] LABS: ALB/GLOB Ratio 0.5 RATIO (0.9-2.4); AST(SGOT) 14 U/L (15-37); Alanine Aminotransfer ALT/SGPT 10 U/L (16-61); Albumin, Serum 2.2 g/dL (3.2-5.0); Alkaline Phosphatase 65 U/L (45-117); Anion Gap 8 (5-15); BUN 2 mg/dL (7-18); BUN/Creat Ratio 2.5 RATIO (10-20); Calcium,Total 8.9 mg/dL (8.5-10.1); Chloride 101 mmol/L (98-107); Creatinine, Serum 0.82 mg/dL (0.70-1.30); EST Glomerular Filtration Rate 103 mL/min (>60); Est Glom Filt Rate - Afr Amer 125 mL/min (>60); Estimated Creatinine Clearance 79.15 ml/min; Globulin 4.3 g/dL (2.2-4.2); Glucose 93 mg/dL (74-106); Potassium 3.3 mmol/L (3.5-5.1); Protein, Total 6.5 g/dL (6.4-8.2); Sodium Level 137 mmol/L (136-145)
--- NOTE | 2020-12-11 09:01 | PCM.PN.HOSP ---
Subjective Subjective Patient was seen and examined. He is much awake and alert. He stated that he does not remember the events prior to coming to the hospital. MRI of the brain was negative for acute abnormality. Objective Data Objective Data Vital Signs: Vital Signs Temp Pulse Resp BP Pulse Ox 98.8 F 90 16 123/62 H 97 12/11/20 08:09 12/11/20 08:09 12/11/20 08:09 12/11/20 08:09 12/11/20 08:09 Oxygen Flow Rate (L/min) 1 Oxygen Delivery Method Room Air Weight: 56.4 kg Body Mass Index (BMI) 20.7 Intake & Output: Intake and Output for Last 24 Hours 12/09/20 12/10/20 12/11/20 23:59 23:59 23:59 Intake Total 2738.33 / 2858.33 4122.50 / 4122.50 921.67 / 921.67 Output Total 2525 / 3775 5450 / 5450 1000 / 1000 Balance 213.33 / -916.67 -1327.50 / -1327.50 -78.33 / -78.33 Lab / Micro Data Result Diagrams: 12/11/20 05:38 12/11/20 05:38 Labs: Laboratory Results - last 24 hr 12/10/20 12/10/20 12/10/20 08:36 08:36 12:45 WBC RBC Hgb Hct MCV MCH MCHC RDW Std Deviation RDW Coeff of Sophie Plt Count MPV Immature Gran % (Auto) Neut % (Auto) Lymph % (Auto) [place] % (Auto) Eos % (Auto) Baso % (Auto) Absolute Neuts (auto) Absolute Lymphs (auto) Nucleated RBC % Sodium Potassium Chloride Carbon Dioxide Anion Gap BUN Creatinine Estim Creat Clear Calc Est GFR (MDRD) Af Amer Est GFR (MDRD) Non-Af BUN/Creatinine Ratio Glucose Calcium Phosphorus 3.2 Total Bilirubin AST ALT Alkaline Phosphatase Ammonia 19.0 Total Protein Albumin Globulin Albumin/Globulin Ratio Vancomycin Trough POC Glucose 104 12/10/20 12/10/20 12/10/20 14:30 17:39 22:49 WBC RBC Hgb Hct MCV MCH MCHC RDW Std Deviation RDW Coeff of Sophie Plt Count MPV Immature Gran % (Auto) Neut % (Auto) Lymph % (Auto) [place] % (Auto) Eos % (Auto) Baso % (Auto) Absolute Neuts (auto) Absolute Lymphs (auto) Nucleated RBC % Sodium Potassium Chloride Carbon Dioxide Anion Gap BUN Creatinine Estim Creat Clear Calc Est GFR (MDRD) Af Amer Est GFR (MDRD) Non-Af BUN/Creatinine Ratio Glucose Calcium Phosphorus Total Bilirubin AST ALT Alkaline Phosphatase Ammonia Total Protein Albumin Globulin Albumin/Globulin Ratio Vancomycin Trough 26.7 H POC Glucose 123 H 108 12/11/20 12/11/20 12/11/20 05:38 05:38 06:20 WBC 10.9 RBC 4.17 L Hgb 12.4 L Hct 37.5 L MCV 89.9 MCH 29.7 MCHC 33.1 RDW Std Deviation 51.1 H RDW Coeff of Sophie 15.4 H Plt Count 527 H MPV 9.9 Immature Gran % (Auto) 0.600 Neut % (Auto) 77.4 H Lymph % (Auto) 8.2 L [place] % (Auto) 7.3 Eos % (Auto) 6.0 H Baso % (Auto) 0.5 Absolute Neuts (auto) 8.4 H Absolute Lymphs (auto) 0.90 Nucleated RBC % 0 Sodium 137 Potassium 3.3 L Chloride 101 Carbon Dioxide 28.0 Anion Gap 8 BUN 2 L Creatinine 0.82 Estim Creat Clear Calc 79.15 Est GFR (MDRD) Af Amer 125 Est GFR (MDRD) Non-Af 103 BUN/Creatinine Ratio 2.5 L Glucose 93 Calcium 8.9 Phosphorus Total Bilirubin 0.20 AST 14 L ALT 10 L Alkaline Phosphatase 65 Ammonia Total Protein 6.5 Albumin 2.2 L Globulin 4.3 H Albumin/Globulin Ratio 0.5 L Vancomycin Trough POC Glucose 100 Micro: Microbiology 12/05/20 11:10 Blood Culture (Wb) - Right Forearm Blood Culture - Final No growth in 5 days. 12/05/20 11:00 Blood Culture (Wb) - Left Forearm Blood Culture - Final No growth in 5 days. Radiography Diagnostic Testing: Radiology Impression Brain MRI 12/10/20 08:24 IMPRESSION: 1. White matter changes suggestive of chronic microvascular disease. 2. No significant interval change. at 1640 Reported and signed by: Brandan Zelaya MD Electronically Signed: Brandan Zelaya MD at 16:39 EDT Tel , Service support , Chest X-Ray 12/10/20 14:28 IMPRESSION: No change from 12/06/2020 Electronically Signed: Glenroy Rainey MD at 7:05 EDT Tel , Service support , Physical Exam Narrative Physical exam: General: Alert, Oriented x3, cooperative, No apparent distress, cachetic HEENT: Atraumatic Oral: Moist Mucosa Neck: Supple Lungs: Clear to auscultation Cardiovascular: HS I+II, regular, no murmurs Abdomen: Bowel Sounds Present, Soft, Non Tender Extremities: No edema Skin: No rashes, No breakdown Neurological: Grossly intact Assessment & Plan Assessment/Plan (1) Encephalopathy: (2) Acetaminophen toxicity: QUALIFIERS: Encounter type: sequela Injury intent: undetermined intent Qualified Code(s): T39.1X4S - Poisoning by 4-Aminophenol derivatives, undetermined, sequela (3) EVERARDO (acute kidney injury): (4) Essential (primary) hypertension: (5) Non-small cell lung cancer: QUALIFIERS: Laterality: left Qualified Code(s): C34.92 - Malignant neoplasm of unspecified part of left bronchus or lung (6) Tobacco dependence: (7) Malnutrition: QUALIFIERS: Malnutrition type: protein-calorie malnutrition Protein-calorie malnutrition severity: moderate Qualified Code(s): E44.0 - Moderate protein-calorie malnutrition PLAN: 1. Acute acetaminophen toxicity, unclear if this was intentional or accidental, resolved 2. Acute toxic encephalopathy, resolving Off all sedative, MRI brain was negative for acute stroke 3. Sepsis secondary to pneumonia, improved X-ray done on 12/06/20 had shown some possible left lung infiltrate Continue with Augmentin 4. Acute alcohol withdrawal, improved, continue to monitor 5. Acute kidney injury, appears resolved 6. Nicotine replacement, on replacement 7. Rest of chronic medical conditions - including NSCLC, COPD, Type DM, Hypertension, Hyperlipidemia, all remain stable Continue rest of home medications 8. Disposition: Discharge planning on-going. Pre-cert for SNF is pending Charges/Coding Visit Charges Inpatient E&M: 59441 Subs Hosp L2
[2020-12-11] MEDS: Potassium Chloride 10mEq/100mL 10 MEQ/100 ML IV.SOLN. 100 MEQ IV BOLUS ×3 (09:45→14:26)
[2020-12-11] MEDS: Enoxaparin 40 MG/0.4 ML Syringe SC (10:07)
[2020-12-11] MEDS: Aspirin 81 MG TAB.CHEW PO (10:07)
[2020-12-11] MEDS: LINAGLIPTIN 5 MG TABLET PO (10:07)
[2020-12-11] MEDS: Multivitamins,Ther W-Minerals Tablet 1 TABLET PO (10:07)
[2020-12-11] MEDS: Amox/Clavulanate 875 MG Tablet PO (10:08)
[2020-12-11] MEDS: Famotidine 200 MG/20 ML MDV 20 MG in 0.9% Normal Saline (Pres. free 8 ML 300 MG IV (10:08)
[2020-12-11] MEDS: Citalopram 40 MG TABLET PO (10:08)
[2020-12-11] MEDS: Ensure Clear 120 ML Liquid PO (10:47)
--- NOTE | 2020-12-11 11:28 | CASEMGMT ---
MARTY faxed more updated information to [facility] to give to insurance. Vera Tadeo VOCATIONAL PSYCHOLOGIST WHEEL GRINDER
--- NOTE | 2020-12-11 12:11 | TREXTCAR_ITS ---
Diet 12/10/20 11:04 Diet: Regular - General Food consistency:: Pureed Liquid Consistency:: Regular/Thin Is pt able to select menu?: Yes Diet Comments: Liquids by straw ok, FEED ONLY WHEN FULLY ALERT, TOTAL FEED, meds crushed Routine Orders/Code Status Routine Lab Work: CBC (within 3 day) and BMP (within 3 days) Wound(s) Right hand, dorsal side: Wound Type: Abrasion lt outer calf: Wound Type: Abrasion Therapies Physical Therapy: Eval and Treat Occupational Therapy: Eval and Treat Speech Therapy: Eval and Treat Problem/Diagnosis (1) Encephalopathy: Status: Acute Comment: toxic encephalopathy (2) Acetaminophen toxicity: Status: Acute (3) EVERARDO (acute kidney injury): Status: Acute (4) Essential (primary) hypertension: Status: Chronic (5) Non-small cell lung cancer: Status: Acute (6) Tobacco dependence: Status: Chronic (7) Malnutrition: Status: Acute Allergies/Procedures Done in Hospital Allergies No Known Allergies Allergy (Verified 12/02/20 20:35) Procedures: None Type of Care/Length of Stay Estimated LOS: Convalescent Care Less Than 30 days Type of Care Needed: Skilled Rehab Potential: Fair Prognosis: Fair Additional Orders/Day of Discharge Day of Discharge: 12/12/20 Dietary and Speech Recommendations Dietitian Recommendations/Changes: When medically able, advance diet as tolerated to regular w/ ensure ensure w/ medpass. LABORER [employer] DOCK consult if issues w/ chewing/swallowing. If unable to resume po diet within 24 hours, rec supplemental nutrition support if in accordance w/ pt/family wishes. Discharge Plan Admission Admit Date/Time: 12/02/20 22:59 Attending Provider: Lauryn Angulo Primary Care Provider: Zurdo Esparza Consulting Providers: Palomo Torre ; Greg Castillo ; Margy Viera LOAN SERVICING SPECIALIST Discharge Orders/Prescriptions Prescriptions: No Action midodrine 2.5 mg tablet 2.5 mg PO TID RF: 0 potassium chloride 20 mEq tablet,ER particles/crystals 20 meq PO BID RF: 0 citalopram 40 MG tablet 40 mg PO DAILY RF: 0 levothyroxine 75 MCG tablet 75 mcg PO DAILY RF: 0 omeprazole 40 MG capsule,delayed release(DR/EC) 40 mg PO DAILY RF: 0 ergocalciferol (vitamin D2) 50,000 UNIT capsule 50,000 unit PO QWEEK RF: 0 nortriptyline 25 MG capsule 50 mg PO QHS RF: 0 oxycodone 5 MG tablet 5 mg PO Q6H PRN PRN (Reason: Pain 1-10 Or Fever) RF: 0 sitagliptin 100 MG tablet 100 mg PO DAILY RF: 0 melatonin 3 MG capsule 3 mg PO DAILY RF: 0 atorvastatin 40 MG tablet 40 mg PO DAILY RF: 0 quetiapine 300 MG tablet 300 mg PO QHS RF: 0 tamsulosin 0.4 MG capsule 0.4 mg PO DAILY@1730 RF: 0 calcium carbonate 500 MG tablet,chewable 500 mg PO BIDCM RF: 0 aspirin 81 MG tablet,chewable 81 mg PO DAILY@0800 RF: 0 magnesium chloride 71.5 MG tablet,delayed release (DR/EC) 71.5 mg PO Q8H RF: 0 Referrals / Follow Up: Zurdo Esparza MD [Primary Care Provider] -
--- NOTE | 2020-12-11 13:45 | CASEMGMT ---
MARTY received a voice mail from Elsa at [facility]. She received approval for patient. MARTY notified department secretary, RN, and physician. MARTY did let Elsa know he will be coming today. Vera DEAL
--- NOTE | 2020-12-11 14:00 | CASEMGMT ---
MARTY faxed orders to [facility]. MARTY completed convalescent on [facility]. Once patient's COVID test comes back MARTY will arrange transport. MARTY notified Yoselyn Henderson at [facility] and faxed his d/c instructions to her. MARTY also called patient's brother Carmine and let him know patient will be heading to [facility] at [facility] today. He thanked MARTY for letting him know. Vera Tadeo FLYER REPAIRER SAY
--- NOTE | 2020-12-11 14:15 | PHA.DC.MR ---
Pharmacy Service has performed discharge medication reconciliation for this patient. The patient's discharge medication list was reviewed for discrepancies and discrepancies were resolved. Home Medications citalopram 40 mg PO DAILY 12/15/16 levothyroxine 75 mcg PO DAILY 10/09/19 omeprazole 40 mg PO DAILY 10/09/19 ergocalciferol (vitamin D2) 50,000 unit PO QWEEK 11/23/19 nortriptyline 50 mg PO QHS 08/14/20 sitagliptin 100 mg PO DAILY 08/14/20 melatonin 3 mg PO DAILY 10/28/20 midodrine 2.5 mg tablet 2.5 mg PO TID tab 11/26/20 potassium chloride 20 mEq tablet,extended release(part/cryst) 20 meq PO BID tab 11/27/20 aspirin 81 mg PO DAILY@0800 12/02/20 atorvastatin 40 mg PO DAILY 12/02/20 calcium carbonate 500 mg PO BIDCM 12/02/20 magnesium chloride 71.5 mg PO Q8H 12/02/20 quetiapine 300 mg PO QHS 12/02/20 tamsulosin 0.4 mg PO DAILY@1730 12/02/20 amoxicillin-pot clavulanate 875 mg PO BID 2 Days #4 tab 12/11/20 nicotine 21 mg TRANSDERMAL DAILY #0 ea 12/11/20
--- NOTE | 2020-12-11 15:46 | CASEMGMT ---
Negative COVID faxed to [facility]. MARTY arranged for patient to get picked up at [facility] via cot. MARTY notified Elsa muniz [facility], RN, supercharge repair supervisor, and medical payment poster. Plan: d/c to [facility] at [place] under skilled level of care on a convalescent stay. [facility] transported patient via cot. Vera Tadeo OBSTETRICS NURSE SAY
--- NOTE | 2020-12-11 17:09 | NURSING ---
Patient discharged to the SNF via transport
--- NOTE | 2020-12-12 08:17 | DS.PCM_ITS ---
Providers Date of Admission: 12/02/20 Date of Discharge: 12/11/20 Primary Care Physician: Dr. Zurdo Esparza MD Consultations 12/03/20 00:05 Consult: Greenhouse Worker / Pulmonary Medicine Routine Consulting Provider: [facility] Reason for Consult: Acetaminophen toxicity. EMERGENT Consult: Yes MD Notified: Yes Date Notified: 12/02/20 Time Notified: 22:57 Method of Notification: Text Method of Consult:: In-Person Reason For Visit: ACUTE ACETAMINOPHEN TOXICITY, ENCEPHALOPATHY Diagnosis Discharge Diagnosis (1) Encephalopathy: Status: Resolved Code(s): G93.40 - Encephalopathy, unspecified (2) Acetaminophen toxicity: Status: Resolved Code(s): T39.1X1A - Poisoning by 4-Aminophenol derivatives, accidental (unintentional), initial encounter Qualifiers: Encounter type: sequela Injury intent: undetermined intent Qualified Code(s): T39.1X4S - Poisoning by 4-Aminophenol derivatives, undetermined, sequela (3) EVERARDO (acute kidney injury): Status: Resolved Code(s): N17.9 - Acute kidney failure, unspecified (4) Essential (primary) hypertension: Status: Chronic Code(s): I10 - Essential (primary) hypertension (5) Non-small cell lung cancer: Status: Chronic Code(s): C34.90 - Malignant neoplasm of unspecified part of unspecified bronchus or lung Qualifiers: Laterality: left Qualified Code(s): C34.92 - Malignant neoplasm of unspecified part of left bronchus or lung (6) Tobacco dependence: Status: Chronic Code(s): F17.200 - Nicotine dependence, unspecified, uncomplicated (7) Malnutrition: Status: Chronic Code(s): E46 - Unspecified protein-calorie malnutrition Qualifiers: Malnutrition type: protein-calorie malnutrition Protein-calorie malnutrition severity: moderate Qualified Code(s): E44.0 - Moderate protein- calorie malnutrition Medications at Discharge Home Medications citalopram 40 mg PO DAILY 12/15/16 levothyroxine 75 mcg PO DAILY 10/09/19 omeprazole 40 mg PO DAILY 10/09/19 ergocalciferol (vitamin D2) 50,000 unit PO QWEEK 11/23/19 nortriptyline 50 mg PO QHS 08/14/20 sitagliptin 100 mg PO DAILY 08/14/20 melatonin 3 mg PO DAILY 10/28/20 midodrine 2.5 mg tablet 2.5 mg PO TID tab 11/26/20 potassium chloride 20 mEq tablet,extended release(part/cryst) 20 meq PO BID tab 11/27/20 aspirin 81 mg PO DAILY@0800 12/02/20 atorvastatin 40 mg PO DAILY 12/02/20 calcium carbonate 500 mg PO BIDCM 12/02/20 magnesium chloride 71.5 mg PO Q8H 12/02/20 quetiapine 300 mg PO QHS 12/02/20 tamsulosin 0.4 mg PO DAILY@1730 12/02/20 amoxicillin-pot clavulanate 875 mg PO BID 2 Days #4 tab 12/11/20 nicotine 21 mg TRANSDERMAL DAILY #0 ea 12/11/20 Hospital Course Operations None Procedures None Summary of Care Provided Minutes Spent on Discharge: 55 Hospital Course: 55-year-old male with multiple comorbidities who comes in with altered mental status. Patient was brought to the emergency department because his neighbor found him confused, walking around and stating that he has been seen beehives. Patient was recently prescribed Percocet and has about 11 tablets missing. In route to the hospital, patient became unresponsive, he received 3 doses of Narcan. Patient's admitting blood work was significant for acetaminophen level of 35.5, alcohol level of 4. Patient was admitted to the ICU and started on the N-acetylcysteine protocol. Over the course of his stay, patient's mentation fluctuated. He had hypomagnesemia as well as acute kidney injury, that resolved with treatment. Patient continued to be lethargic on and off. He was initially on sedatives and then he was weaned off. He was seen by speech therapy input on pur?ed diet. Patient had an MRI of the brain on account of his persistent encephalopathy and that was unremarkable. Patient was seen and evaluated by PT and OT and skilled for discharge to the [facility] facility. Physical Exam Narrative Physical exam: General: Alert, Oriented to self, Cooperative, No apparent distress, Well deve loped HEENT: Atraumatic Oral: Moist Mucosa Neck: Supple Lungs: Clear to auscultation Cardiovascular: HS I+II, regular, no murmurs Abdomen: Bowel Sounds Present, Soft, Non Tender Extremities: No edema Skin: No rashes, No breakdown Neurological: Grossly intact Weight / BMI Weight Weight: 56.4 kg Body Mass Index (BMI) 20.7 ABG / Lab / Microbiology Data Result Diagrams: 12/11/20 05:38 12/11/20 05:38 Microbiology: Microbiology 12/11/20 15:15 SARS-CoV-2 Antigen (Rapid) - Final Nasal Secretion Microbiology 12/11/20 15:15 Nasal Secretion SARS-CoV-2 Antigen (Rapid) - Final 12/05/20 11:10 Blood Culture (Wb) - Right Forearm Blood Culture - Final No growth in 5 days. 12/05/20 11:00 Blood Culture (Wb) - Left Forearm Blood Culture - Final No growth in 5 days. D/C Instructions Discharge Diet: No restrictions Discharge Activity: Return to Normal Activity Meaningful Use Info Meaningful Use Diagnoses (Choose all that apply): None applicable Discharge Plan Admission Admit Date/Time: 12/02/20 22:59 Attending Provider: Lauryn Angulo Primary Care Provider: Zurdo Esparza Consulting Providers: Palomo Torre ; Greg Castillo ; Margy Viera BOARDER MACHINE Discharge Orders/Prescriptions Prescriptions: New nicotine 21 mg/24 hr Patch 24 Hour 21 mg transdermal DAILY Qty: 0 RF: 0 amoxicillin-pot clavulanate 875-125 mg Tablet 875 mg PO BID 2 Days Qty: 4 RF: 0 Continued midodrine 2.5 mg tablet 2.5 mg PO TID RF: 0 potassium chloride 20 mEq tablet,ER particles/crystals 20 meq PO BID RF: 0 citalopram 40 MG tablet 40 mg PO DAILY RF: 0 levothyroxine 75 MCG tablet 75 mcg PO DAILY RF: 0 omeprazole 40 MG capsule,delayed release(DR/EC) 40 mg PO DAILY RF: 0 ergocalciferol (vitamin D2) 50,000 UNIT capsule 50,000 unit PO QWEEK RF: 0 nortriptyline 25 MG capsule 50 mg PO QHS RF: 0 sitagliptin 100 MG tablet 100 mg PO DAILY RF: 0 melatonin 3 MG capsule 3 mg PO DAILY RF: 0 atorvastatin 40 MG tablet 40 mg PO DAILY RF: 0 quetiapine 300 MG tablet 300 mg PO QHS RF: 0 tamsulosin 0.4 MG capsule 0.4 mg PO DAILY@1730 RF: 0 calcium carbonate 500 MG tablet,chewable 500 mg PO BIDCM RF: 0 aspirin 81 MG tablet,chewable 81 mg PO DAILY@0800 RF: 0 magnesium chloride 71.5 MG tablet,delayed release (DR/EC) 71.5 mg PO Q8H RF: 0 Discontinued oxycodone 5 MG tablet 5 mg PO Q6H PRN PRN (Reason: Pain 1-10 Or Fever) RF: 0 Referrals / Follow Up: Zurdo Esparza MD [Primary Care Provider] - Disposition Disposition (needs filled in before D/C Order can be placed): [facility] Facility Charges/Coding Visit Charges Inpatient E&M: 58398 Disch Hosp
== END 2020-12-11 17:10 | disposition skilled nursing facility (03) | DRG 917 ==
LOC: ED 22:44 → ICU 23:02 → PCU 12-09 11:59
PROVIDERS: Internal Medicine Critical Care Medicine; Student in an Organized Health Care Education/Training Program; Admitting Provider Hospitalist; Emergency Provider Student in an Organized Health Care Education/Training Program; PCP Internal Medicine; Visit Provider Internal Medicine
DX: T39.1X1A Poisoning by 4-Aminophenol derivatives, accidental (unintentional), initial encounter (principal); G92 Toxic encephalopathy; A41.9 Sepsis, unspecified organism; J18.9 Pneumonia, unspecified organism; N17.9 Acute kidney failure, unspecified; E44.0 Moderate protein-calorie malnutrition; F10.239 Alcohol dependence with withdrawal, unspecified; E87.1 Hypo-osmolality and hyponatremia; T40.2X1A Poisoning by other opioids, accidental (unintentional), initial encounter; Y92.9 Unspecified place or not applicable; E87.6 Hypokalemia; E87.8 Other disorders of electrolyte and fluid balance, not elsewhere classified; E86.0 Dehydration; E83.42 Hypomagnesemia; J44.9 Chronic obstructive pulmonary disease, unspecified; E11.42 Type 2 diabetes mellitus with diabetic polyneuropathy; I10 Essential (primary) hypertension; E78.5 Hyperlipidemia, unspecified; E03.9 Hypothyroidism, unspecified; K21.9 Gastro-esophageal reflux disease without esophagitis; F17.210 Nicotine dependence, cigarettes, uncomplicated; Z68.20 Body mass index [BMI] 20.0-20.9, adult; Z79.82 Long term (current) use of aspirin; Z79.890 Hormone replacement therapy; Z79.899 Other long term (current) drug therapy; Z86.73 Personal history of transient ischemic attack (TIA), and cerebral infarction without residual deficits; Z96.641 Presence of right artificial hip joint; Z85.118 Personal history of other malignant neoplasm of bronchus and lung
CPT/HCPCS: 36415; 36600; 70450; 70551; 71045; 80053; 80202; 80307; 80329; 82077; 82140; 82803; 82962; 83690; 83735; 84100; 84443; 85025; 85610; 87040; 87426; 92526; 92610; 93005; 95819; 97110; 97163; 97167; 97530; 97535; 97802; 99285; J7040; J7050; A4216; G0480; J3490; J7799

== ENCOUNTER → 2021-01-13 14:06 | Outpatient (CLI) | payer MEDICARE, SELFPAY ==
[2021-01-08 08:53] VITALS: BMI 20.8
[2021-01-13 14:46] LABS: Amphetamine Urine VISTA NEGATIVE (<1000 ng/mL); Barbiturate Urine VISTA NEGATIVE (< 200 ng/mL); Benzodiazepine Urine VISTA NEGATIVE (< 200 ng/mL); Cocaine Urine VISTA NEGATIVE (< 300 ng/mL); Ecstacy Urine VISTA NEGATIVE (< 500 ng/mL); Methadone Urine VISTA NEGATIVE (< 300 ng/mL); PCP Urine VISTA NEGATIVE (< 25 ng/mL); THC Urine VISTA POSITIVE (< 50 ng/mL); Vista UDS pH Range 5
== END ==
PROVIDERS: PCP Internal Medicine; Referring Provider Anesthesiology Pain Medicine; Visit Provider Anesthesiology Pain Medicine
DX: F11.20 Opioid dependence, uncomplicated (principal)
CPT/HCPCS: 80307

== ENCOUNTER 2021-03-14 12:28 | Inpatient (IN) | payer MEDICARE, MEDICAID, SELFPAY ==
[2021-03-14] VITALS (13 sets, daily range): BP systolic 111–143; BP diastolic 74–93; PULSE 84–104; RESP 16–20; TEMP 36.5–37.2; O2SAT 95–100; BMI 22.6; BMI 24.5
--- NOTE | 2021-03-14 12:37 | ED.RN ---
PT PULSE OX ON MACHINE RUNNING 96 TO98 %. ON PATIENT PORTABLE PULSE OX AND HOSPITAL PORTABLE PULSE OX PT IS 83
--- NOTE | 2021-03-14 13:19 | EKG12_ITS ---
Test Reason : Blood Pressure : / mmHG Vent. Rate : 087 BPM Atrial Rate : 087 BPM P-R Int : 168 ms QRS Dur : 084 ms QT Int : 368 ms P-R-T Axes : 042 007 043 degrees QTc Int : 442 ms Normal sinus rhythm Low voltage QRS (Limb Leads) Borderline ECG Confirmed by ARTUR BINGHAM, LELA ([id number]), graphics editor REED FLORES ([id number]) on 03/17/2021 2:16:57 PM Referred By: Confirmed By:LELA SIDDIQUI MD
--- NOTE | 2021-03-14 13:21 | EDS_ITS ---
HPI History of Present Illness Chief Complaint: Shortness of Breath Informant: patient Narrative Narrative: 2-week history of progressive dyspnea mild nonproductive cough mild headache. No loss of taste or smell. No vomiting or diarrhea. History of COPD, non-small cell lung cancer. Last treatment was 6 months ago followed by Dr. Harper. Denies chest pain or pressure. No home oxygen. Covid vaccinated second dose January of this year. Denies fever. Tobacco history. Symptoms worse with exertion. PE Risk Factors: Positive for Cancer [facility] Medical History Alcohol abuse Barretts esophagus Carotid stenosis Closed right hip fracture Depression GERD (gastroesophageal reflux disease) History of CVA (cerebrovascular accident) (08/25/19) Hypothyroidism Major depression with psychotic features New onset seizure Non-small cell lung cancer Peripheral neuropathy Vitamin D deficiency Home Medications citalopram 40 mg PO DAILY 12/15/16 [History Last Taken 03/13/21] levothyroxine 75 mcg PO DAILY 10/09/19 [History Last Taken 03/14/21] omeprazole 40 mg PO DAILY 10/09/19 [History Last Taken 03/14/21] ergocalciferol (vitamin D2) 50,000 unit PO FR 11/23/19 [History Last Taken 03/14/21] sitagliptin 100 mg PO DAILY 08/14/20 [History Last Taken 03/13/21] melatonin 3 mg PO QHS 10/28/20 [History Last Taken 03/13/21] potassium chloride 20 mEq tablet,extended release(part/cryst) 20 meq PO BID tab 11/27/20 [History Last Taken 03/14/21] aspirin 81 mg PO DAILY@0800 12/02/20 [History Last Taken 03/14/21] atorvastatin 40 mg PO DAILY 12/02/20 [History Last Taken 03/13/21] calcium carbonate 500 mg PO BIDCM 12/02/20 [History Last Taken 03/14/21] magnesium chloride 71.5 mg PO Q8H 12/02/20 [History Last Taken 03/14/21] quetiapine 300 mg PO QHS 12/02/20 [History Last Taken 03/13/21] tamsulosin 0.4 mg PO DAILY@1730 12/02/20 [History Last Taken 03/13/21] midodrine 2.5 mg tablet 2.5 mg PO TID PRN tab 01/08/21 [History Last Taken 03/14/21] fentanyl 25 mcg TRANSDERMAL .Q72H 03/14/21 [History Last Taken 03/11/21] nortriptyline 50 mg PO QHS 03/14/21 [History Last Taken 03/13/21] Allergy/AdvReac Type Severity Reaction Status Date / Time No Known Allergies Allergy Verified 03/14/21 12:31 Family History (Updated 03/14/21 @ 17:[address] Natalie Neely MD) Father Heart disease Mother Heart disease CAD, Hx CABG. CAD (coronary artery disease) CAD, Hx CABG Diabetes Surgical History History of hemiarthroplasty of right hip History of liver biopsy History of right hip replacement (~11/2019) Social History (Updated 03/14/21 @ 17:[address] Natalie Neely MD) household members: none Smoking Status: Current every day smoker tobacco type: cigarettes Smoking packs per day: 1.5 Smoking cigarettes per day: 30.0 alcohol intake: former details: Patient stated that he quit drinking 6 months ago except did have 2 beers. substance use type: marijuana ROS ROS ED Constitutional Constitutional ED: Denies chills, fever(s) or sweats Eyes Eyes: Denies change in vision ENT ENT ED: Denies dysphagia or sore throat Cardiovascular Cardiovascular: Denies chest pain, leg edema, palpitations or racing heartbeat Respiratory/Chest Respiratory/Chest: Reports cough, dyspnea and dyspnea on exertion Gastrointestinal Gastrointestinal: Denies abdominal pain, diarrhea, nausea or vomiting Genitourinary Genitourinary ED: Denies dysuria, hematuria or urinary frequency Musculoskeletal Musculoskeletal: Denies back pain, extremity pain or neck pain Integumentary Denies rash or wounds Neurologic Neurologic: Reports headache(s); Denies paresthesias or weakness EXAM Physical Exam Const Vital Signs: 03/14/21 12:29 03/14/21 13:08 03/14/21 13:24 Temperature 98 F 97.8 F Temperature Source Temporal Oral Pulse Rate 97 91 Respiratory Rate 18 19 H Respiratory Effort Short of Breath Labored Respiratory Pattern Tachypnea Blood Pressure 111/74 142/75 H Blood Pressure Mean 86 97 Pulse Ox 96 100 100 Oxygen Delivery Method Room Air Room Air Nasal Cannula Oxygen Flow Rate (L/min) 2 03/14/21 15:22 Temperature Temperature Source Pulse Rate 86 Respiratory Rate 18 Respiratory Effort Respiratory Pattern Blood Pressure 135/78 H Blood Pressure Mean 97 Pulse Ox 100 Oxygen Delivery Method Nasal Cannula Oxygen Flow Rate (L/min) Positive well nourished and well developed Constitutional Narrative: On nasal cannula General Appearance ED: well developed and NAD HEENT Reports moist mucous membranes normocephalic and atraumatic Eyes PERRL, EOMs intact bilaterally and conjunctivae normal General Eye ED: Yes normal appearance of both eyes Neck no lymphadenopathy and supple General: Negative for tenderness Chest Wall Chest: Negative for tenderness Resp normal air movement Resp Narrative: Diminished breath sounds bilateral bases. No distress. Effort and Inspection: symmetric chest movement; Negative for respiratory distress Cardio regular rate, regular rhythm and no murmurs Peripheral Pulses: pulses 2+ throughout GI normal to inspection, nondistended, normoactive bowel sounds and non-tender Palpation: Negative for guarding or rebound tenderness present Back/Spine no CVA tenderness and no thoracic nor lumbar tenderness Extremity normal to inspection General Extremety ED: Negative for edema or tenderness General Extremity: Negative for edema Neuro oriented x3 and no sensory deficits noted Sensorium / Orientation: awake and alert Skin no rashes or lesions noted and no wounds MDM MDM MDM Narrative Medical decision making narrative: Patient presented triage 97% room air however ambulating to the room he dropped down to 84%. He is placed on oxygen per nursing he is in no respiratory distress. Chest x-ray noted small left pleural effusion left apex density. Labs stable D-dimer is up. Noted creatinine 1.5 therefore 500 cc IV fluid bolus was given. GFR was 49. CTA chest obtained negative for PE however noted bilateral pleural effusions left greater than right. Also reported moderate pericardial effusion. Negative PE. Soft tissue mass in left apex, stable. History of his non-small lung cancer. Patient's pleural effusion with hypoxia I spoke with hospitalist Dr. Neely for admission. Lasix 40 mg IV was given. Lab Data Attestation: I reviewed the patient's lab results. Labs: Laboratory Results - last 24 hr 03/14/21 03/14/21 03/14/21 13:25 13:25 13:25 WBC 7.6 RBC 4.11 L Hgb 12.1 L Hct 38.8 L MCV 94.4 H MCH 29.4 MCHC 31.2 L RDW Std Deviation 54.3 H RDW Coeff of Sophie 15.9 H Plt Count 423 MPV 9.5 Immature Gran % (Auto) 0.400 Neut % (Auto) 79.3 H Lymph % (Auto) 11.6 L [place] % (Auto) 7.0 Eos % (Auto) 1.3 Baso % (Auto) 0.4 Absolute Neuts (auto) 6.0 Absolute Lymphs (auto) 0.88 Nucleated RBC % 0 PT 13.5 INR 1.1 APTT 29.1 D-Dimer Quant (PE/DVT) 2.43 H* Sodium 134 L Potassium 4.9 Chloride 102 Carbon Dioxide 32.0 Anion Gap 0 L BUN 12 Creatinine 1.57 H Estim Creat Clear Calc 46.07 Est GFR (MDRD) Af Amer 59 L Est GFR (MDRD) Non-Af 49 L BUN/Creatinine Ratio 7.6 L Glucose 103 Calcium 8.7 Phosphorus Magnesium Lactate Dehydrogenase Troponin I High Sens 54 C-React Prot Ext Range 27.70 H B-Natriuretic Peptide Total Protein Globulin Albumin/Globulin Ratio TSH Free T4 03/14/21 03/14/21 03/14/21 13:25 13:25 13:25 WBC RBC Hgb Hct MCV MCH MCHC RDW Std Deviation RDW Coeff of Sophie Plt Count MPV Immature Gran % (Auto) Neut % (Auto) Lymph % (Auto) [place] % (Auto) Eos % (Auto) Baso % (Auto) Absolute Neuts (auto) Absolute Lymphs (auto) Nucleated RBC % PT INR APTT D-Dimer Quant (PE/DVT) Sodium Potassium Chloride Carbon Dioxide Anion Gap BUN Creatinine Estim Creat Clear Calc Est GFR (MDRD) Af Amer Est GFR (MDRD) Non-Af BUN/Creatinine Ratio Glucose Calcium Phosphorus 4.1 Magnesium 1.7 Lactate Dehydrogenase 207 Troponin I High Sens 53 C-React Prot Ext Range B-Natriuretic Peptide 713.5 H Total Protein 7.2 Globulin 4.4 H Albumin/Globulin Ratio 0.6 L TSH 1.22 Free T4 0.90 Radiography Chest X-Ray - ED: 1 View, Read by ED Physician and Read by Radiologist Diagnostic Testing: Radiology Impression Chest X-Ray 03/14/21 13:45 IMPRESSION: Stable soft tissue density in the left lung apex. There is a new small left pleural effusion with left basilar atelectasis. Electronically Signed: Baljinder Olivo MD at 14:08 EDT , Service support , Chest CTA 03/14/21 14:13 IMPRESSION: Bilateral pleural effusions left greater than right with bibasilar atelectasis. Moderate sized pericardial effusion. No evidence of pulmonary embolism. Electronically Signed: Baljinder Olivo MD at 15:37 EDT , Service support , EKG Initial EKG: Attestation: I personally reviewed and interpreted this EKG as follows: Comments: Sinus rate of 87, no ST changes. T wave inversions anterior leads. Discharge Plan Dx/Rx/DC Orders Clinical Impression: Bilateral pleural effusion, Pericardial effusion without cardiac tamponade, Hypoxia, EVERARDO (acute kidney injury) Disposition Disposition: Acute Care Hospital [facility] Discharge Date/Time: 03/14/21 17:05
[2021-03-14 13:38] LABS: Absolute Lymphocyte Count 0.88 X10^3/uL (0.83-4.51); Basophil# 0.03 X10^3/uL; Basophil% 0.4 % (0-1); Eosinophils% 1.3 % (0-5); Hematocrit 38.8 % (40-54); Hemoglobin 12.1 g/dL (13.0-16.5); Lymphocyte # 0.88 X10^3/ul (0.83-4.51); Lymphocyte % 11.6 % (19-41); Mean Corp Hgb Conc 31.2 g/dL (32-36); Mean Corpuscular Hgb 29.4 pg (27.0-32.0); Mean Corpuscular Volume 94.4 fL (80-94); Mean Platelet Vol. 9.5 fl (6.2-12.0); Monocyte# 0.53 X10^3/uL; NRBC Flagged by Analyzer 0 % (0-5); Neutrophil # 6.02 X10^3/uL (2.7-7.7); Neutrophil % 79.3 % (47-70); Platelet Count 423 K/mm3 (150-450); RBC Distribution Width CV 15.9 % (11.6-14.6); RBC Distribution Width SD 54.3 fl (35.1-43.9); Red Blood Count 4.11 M/mm3 (4.6-6.2); White Blood Count 7.6 K/mm3 (4.4-11.0)
--- NOTE | 2021-03-14 13:45 | RAD_ITS ---
STUDY: X-RAY CHEST REASON FOR EXAM: Male, 56 years old. Sob, cough TECHNIQUE: Single AP portable view of the chest. COMPARISON: Comparison is made with prior chest radiograph dated 12/10/2020. FINDINGS: EKG electrodes are seen. Persistent soft tissue density in the left lung apex with retraction of the left hilum. Small left pleural effusion with left basilar atelectasis. Normal size heart. Normal mediastinum and [place]. Normal visualized pulmonary arteries. Normal visualized aortic arch and descending thoracic aorta. There are diffuse degenerative changes of the visualized thoracic spine. Normal visualized ribs, clavicles, and shoulders. There is no demonstrated abnormality of the visualized soft tissue structures of the upper abdomen. RAD/Chest 1 View (Portable) IMPRESSION: Stable soft tissue density in the left lung apex. There is a new small left pleural effusion with left basilar atelectasis. Electronically Signed: Baljinder Olivo MD at 14:08 EDT , Service support ,
[2021-03-14 13:52] LABS: International Normalized Ratio 1.1; Prothrombin Time (Protime)PT. 13.5 SECONDS (11.7-14.9)
[2021-03-14 13:53] LABS: Partial Thromboplast Time 29.1 Seconds (24.1-36.2)
[2021-03-14 13:57] LABS: Anion Gap 0 (5-15); BUN 12 mg/dL (7-18); BUN/Creat Ratio 7.6 RATIO (10-20); Calcium,Total 8.7 mg/dL (8.5-10.1); Chloride 102 mmol/L (98-107); Creatinine, Serum 1.57 mg/dL (0.70-1.30); EST Glomerular Filtration Rate 49 mL/min (>60); Est Glom Filt Rate - Afr Amer 59 mL/min (>60); Estimated Creatinine Clearance 46.07 ml/min; Glucose 103 mg/dL (74-106); Potassium 4.9 mmol/L (3.5-5.1); Sodium Level 134 mmol/L (136-145); Troponin-I HS 54 pg/mL (3.0-78.0)
[2021-03-14 14:08] LABS: D-Dimer Quantitative (DVT/PE) 2.43 FEU/ug/m (0.27-0.49)
--- NOTE | 2021-03-14 14:13 | CT_ITS ---
STUDY: CTA CHEST REASON FOR EXAM: Male, 56 years old. Sob, elevated dimer, hx of lung CA RADIATION DOSAGE (If Supplied By Facility): CTDIvol = ( 11.25 ) mGy, DLP = ( 444.17 ) mGycm TECHNIQUE: The examination was performed with the intravenous administration of IV 100mL [id number]-[id number]. Post-processing of the angiographic images was performed, with multiplanar reformation and 3D reconstruction. Individualized dose optimization techniques were used for this CT. COMPARISON: Comparison is made with prior study dated 10/29/2020. FINDINGS: Normal enhancement of the main pulmonary artery and right and left pulmonary arteries. Normal enhancement of the bilateral peripheral pulmonary arteries. There is no demonstrated pulmonary embolism. There is atherosclerotic calcification of the aortic arch with tortuosity. There is no demonstrated aortic dissection. Moderate sized pericardial effusion. Normal mediastinum. Normal hilar regions. Normal visualized trachea and bronchi. Annual loss in the left lung with the consolidation and heterogeneous calcification. This is unchanged. There is evidence of bilateral pleural effusions with bibasilar atelectasis. Normal pleura. Normal chest wall structures. There are degenerative changes of thoracic spine. Normal visualized upper abdomen. CT/CTA Chest W/WO Contrast IMPRESSION: Bilateral pleural effusions left greater than right with bibasilar atelectasis. Moderate sized pericardial effusion. No evidence of pulmonary embolism. Electronically Signed: Baljinder Olivo MD at 15:37 EDT , Service support ,
--- NOTE | 2021-03-14 16:18 | HP.PCM.HOS_ITS ---
HPI - General General Date of Admission: 03/14/21 Date of Service: 03/14/21 Chief Complaint: Dyspnea, fatigue, hypoxia on home machine. HPI Narrative The patient is a 56 y/o M w/ PMHx: Chronic COPD, Tobacco use, HTN however during most recent [facility] admission d/c all of his regimen and was initiated on midodrine PRN, HLD, Chronic hepatitis C, Chronic Thrombocytopenia, Anxiety and Depression, Chronic pain syndrome, Hypothyroidism, Former EtOH Abuse, GERD, BPH, Diabetes mellitus type II with peripheral neuropathy, Non-small cell Lung CA with last treatment ~ 6 months prior following w/ Dr. Harper, Hx CVA who presents to the [facility] ED on 03/14/21 with history of progressively worsening dyspnea over the last 2 weeks, worse with exertion, notes requires pillows piled up when he sleeps in bed, denies any recent specific edema however it is worsened and he noted a low pulse oximeter at home prompting eventual ED presentation. He denies any associated fever, chills, nausea, emesis, abdominal pain. He does state some pleuritic discomfort, more so with deep inspiratory effort. Work-up in the ED included T 97.8, heart rate 91, BP 142/75, respiratory rate 19, initially noted to be 100% room air at rest however when ambulated towards the ED room he dropped to 84% with exertion, CBC with WBC 7.6, hemoglobin 12.1, platelet 423 without marked shift, coags with D-dimer 2.43 otherwise not marked appearing, BMP with sodium 134, BUN/creatinine 12/1.57, high-sensitivity troponin 54, CRP 27.7, rapid Covid antigen negative, chest x-ray with stable soft tissue density left lung apex with new small left pleural effusion with left basilar atel ectasis, EKG with sinus rhythm with no acute evidence of ischemia. In the ED patient ministered initially small bolus however with results as noted IV Lasix 40 mg x 1 administered. [facility] Medical History Alcohol abuse Barretts esophagus Carotid stenosis Closed right hip fracture Depression GERD (gastroesophageal reflux disease) History of CVA (cerebrovascular accident) (08/25/19) Hypothyroidism Major depression with psychotic features New onset seizure Non-small cell lung cancer Peripheral neuropathy Vitamin D deficiency Home Medications citalopram 40 mg PO DAILY 12/15/16 [History Last Taken 11/23/19] levothyroxine 75 mcg PO DAILY 10/09/19 [History Last Taken 11/23/19] omeprazole 40 mg PO DAILY 10/09/19 [History Last Taken 11/23/19] ergocalciferol (vitamin D2) 50,000 unit PO QWEEK 11/23/19 [History Last Taken 11/22/19] sitagliptin 100 mg PO DAILY 08/14/20 [History Last Taken Unknown] melatonin 3 mg PO DAILY 10/28/20 [History Last Taken Unknown] potassium chloride 20 mEq tablet,extended release(part/cryst) 20 meq PO BID tab 11/27/20 [History Last Taken Unknown] aspirin 81 mg PO DAILY@0800 12/02/20 [History Last Taken Unknown] atorvastatin 40 mg PO DAILY 12/02/20 [History Last Taken Unknown] calcium carbonate 500 mg PO BIDCM 12/02/20 [History Last Taken Unknown] magnesium chloride 71.5 mg PO Q8H 12/02/20 [History Last Taken Unknown] quetiapine 300 mg PO QHS 12/02/20 [History Last Taken Unknown] tamsulosin 0.4 mg PO DAILY@1730 12/02/20 [History Last Taken Unknown] midodrine 2.5 mg tablet 2.5 mg PO TID PRN tab 01/08/21 [History Last Taken Unknown] fentanyl 25 mcg TRANSDERMAL .Q72H 03/14/21 [History Last Taken 03/11/21] nortriptyline 50 mg PO QHS 03/14/21 [History Last Taken 03/13/21] Allergy/AdvReac Type Severity Reaction Status Date / Time No Known Allergies Allergy Verified 03/14/21 12:31 Family History (Updated 03/14/21 @ 17:[address] Natalie Neely MD) Father Heart disease Mother Heart disease CAD, Hx CABG. CAD (coronary artery disease) CAD, Hx CABG Diabetes Surgical History History of hemiarthroplasty of right hip History of liver biopsy History of right hip replacement (~11/2019) Social History (Updated 03/14/21 @ 17:[address] Natalie Neely MD) household members: none Smoking Status: Current every day smoker tobacco type: cigarettes Smoking packs per day: 1.5 Smoking cigarettes per day: 30.0 alcohol intake: former details: Patient stated that he quit drinking 6 months ago except did have 2 beers. substance use type: marijuana ROS ROS Narrative Admission Review of Systems: CONSTITUTIONAL: No weight loss, fever, chills, + weakness or fatigue. HEENT: Eyes: No visual loss, blurred vision, double vision or yellow sclerae. Ears, Nose, Throat: No hearing loss, sneezing, congestion, runny nose or sore throat. SKIN: No rash or itching, lesions, wounds. CARDIOVASCULAR: + Pleuritic discomfort. No palpitations, edema, orthopnea, syncopal events. RESPIRATORY: + shortness of breath, nonproductive unchanged cough, No wheezing, hemoptysis. GASTROINTESTINAL: No anorexia, nausea, vomiting or diarrhea, abdominal pain, me lindsay, BRBPR. GENITOURINARY: No dysuria, frequency, urgency or retention. NEUROLOGICAL: No headache, dizziness, syncope, paralysis, ataxia, numbness or tingling in the extremities, focal weakness, change in bowel or bladder control, seizure. MUSCULOSKELETAL: + muscle, back pain, joint pain or stiffness. HEMATOLOGIC: + anemia, bleeding or bruising. LYMPHATICS: No enlarged nodes. No history of splenectomy. PSYCHIATRIC: + history of depression or anxiety. ENDOCRINOLOGIC: No reports of sweating, cold or heat intolerance. No polyuria or polydipsia. ALLERGIES: No history of asthma, hives, eczema or rhinitis. Vital Signs Vital Signs Vital Signs: 03/14/21 12:29 03/14/21 13:08 03/14/21 13:24 Temperature 98 F 97.8 F Temperature Source Temporal Oral Pulse Rate 97 91 Respiratory Rate 18 19 H Respiratory Effort Short of Breath Labored Respiratory Pattern Tachypnea Blood Pressure 111/74 142/75 H Blood Pressure Mean 86 97 Pulse Ox 96 100 100 Oxygen Delivery Method Room Air Room Air Nasal Cannula Oxygen Flow Rate (L/min) 2 03/14/21 15:22 Temperature Temperature Source Pulse Rate 86 Respiratory Rate 18 Respiratory Effort Respiratory Pattern Blood Pressure 135/78 H Blood Pressure Mean 97 Pulse Ox 100 Oxygen Delivery Method Nasal Cannula Oxygen Flow Rate (L/min) Weight Weight: 140 lb Body Mass Index (BMI) 22.6 Physical Exam Narrative Physical Examination: General: Awake, alert, oriented x 3 and cooperative, seated upright in the ED bed, fatigued but no obvious evidence of distress including respiratory. Skin: Normal color, normal turgor, no icterus, no cyanosis. HEENT: AT/NC, EOMI, PERRLA, MMM, no carotid bruits or JVD noted. Lungs: Significantly diminished, greater bilateral bases, despite effusions no significant rales, mildly decreased effort, no obvious wheezing or rhonchi. Heart: Regular rate and rhythm; no gallop, rub audible. Abdomen: Soft, NTTP, ND, normal BS, positive HM. Extremities: No cyanosis, clubbing, or edema. Neurological: Patient awake, alert, oriented as noted, cognitive function intact; pupils equally reactive to light and accommodation, cranial nerves II- XII grossly normal, moving all 4 extremities, no focal deficits, strength moderately to severely global decreased especially with attempted movements. Psychiatric: Affect appears fatigued otherwise normal, no acute evidence of depressive or anxiety feelings. Results Lab / Micro Data Result Diagrams: 03/14/21 13:25 03/14/21 13:25 Labs: Laboratory Results - last 24 hr 03/14/21 13:25: WBC 7.6, RBC 4.11 L, Hgb 12.1 L, Hct 38.8 L, MCV 94.4 H, MCH 2 9.4, MCHC 31.2 L, RDW Std Deviation 54.3 H, RDW Coeff of Sophie 15.9 H, Plt Count 423, MPV 9.5, Immature Gran % (Auto) 0.400, Neut % (Auto) 79.3 H, Lymph % (Auto) 11.6 L, [place] % (Auto) 7.0, Eos % (Auto) 1.3, Baso % (Auto) 0.4, Absolute Neuts (auto) 6.0, Absolute Lymphs (auto) 0.88, Nucleated RBC % 0 03/14/21 13:25: PT 13.5, INR 1.1, APTT 29.1, D-Dimer Quant (PE/DVT) 2.43 H* 03/14/21 13:25: Sodium 134 L, Potassium 4.9, Chloride 102, Carbon Dioxide 32.0, Anion Gap 0 L, BUN 12, Creatinine 1.57 H, Estim Creat Clear Calc 46.07, Est GFR (MDRD) Af Amer 59 L, Est GFR (MDRD) Non-Af 49 L, BUN/Creatinine Ratio 7.6 L, Glucose 103, Calcium 8.7, Troponin I High Sens 54, C-React Prot Ext Range 27.70 H Micro: Microbiology 03/14/21 13:25 Nasal Secretion SARS-CoV-2 Antigen (Rapid) - Final Radiology Impression Chest X-Ray 03/14/21 13:45 IMPRESSION: Stable soft tissue density in the left lung apex. There is a new small left pleural effusion with left basilar atelectasis. Electronically Signed: Baljinder Olivo MD at 14:08 EDT , Service support , Chest CTA 03/14/21 14:13 IMPRESSION: Bilateral pleural effusions left greater than right with bibasilar atelectasis. Moderate sized pericardial effusion. No evidence of pulmonary embolism. Electronically Signed: Baljinder Olivo MD at 15:37 EDT , Service support , Assessment & Plan Assessment/Plan (1) Hypoxia: (2) Bilateral pleural effusion: (3) Pericardial effusion: PLAN: The patient is a 56 y/o M w/ PMHx: Chronic COPD, Tobacco use, HTN however during most recent [facility] admission d/c all of his regimen and was initiated on midodrine PRN, HLD, Chronic hepatitis C, Chronic Thrombocytopenia, Anxiety and Depression, Chronic pain syndrome, Hypothyroidism, Former EtOH Abuse, GERD, BPH, Diabetes mellitus type II with peripheral neuropathy, Non- small cell Lung CA with last treatment ~ 6 months prior following w/ Dr. Harper, Hx CVA who presents to the [facility] ED on 03/14/21 with history of progressively worsening dyspnea over the last 2 weeks, worse with exertion, notes requires pillows piled up when he sleeps in bed, denies any recent specific edema however it is worsened and he noted a low pulse oximeter at home prompting eventual ED presentation. 1. Acute Hypoxia secondary to Acute BL Pleural Effusions and Pericardial Effusion, Possibly associated with Acute Decompensated Diastolic CHF or more likely suspected Malignant Non-small Cell Lung CA Effusions: Patient administered IV lasix in the ED, will admit to PCU, maintain on cardiac telemetry obtain cardiac enzyme series, obtain serial EKGs, continue IV lasix diuresis, monitor I/Os, maintain on intake restriction, continue medical therapy. Given chronic need for midodrine with hypotension since last admission, will limit regimen to IV lasix cautiously and continue his PRN midodrine regimen. Will obtain TSH and magnesium level. Most recent ECHO noted 01/24/21 [facility] w/ normal size LV, normal LV systolic function, EF 57%, grade 1 LV diastolic dysfunction, RV normal size, RV systolic function normal, evident small pericardial effusion with planned repeat given CTPA noted moderate effusion per discussion with cardiology. Cardiology consulted, pending. 2. Acute kidney injury: Secondary to likely acute presentation #1. Admission BUN/Cr 1.57, prior baseline creatinine noted to be primarily 0.6-0.8. Given presentations with bilateral significant effusions will initiate judicious IV diuresis w/ IV lasix, will hold any other nephrotoxic regimen at this time, trend BMPs. 3. Diabetes mellitus type II: Hold oral home regimen, ADA diet, accu checks w/ ISS. 4. Anxiety and depression: We will continue patient home citalopram and Seroquel regimen. 5. Hyperlipidemia: Continue home statin regimen. AM FLP. 6. Chronic pain syndrome: We will continue patient low-dose fentanyl patch. 7. Hypothyroidism: Continue home synthroid regimen, TSH and free T4 pending. 8. Chronic COPD: Will maintain on oxygen with wean as tolerated to room air, continue ATC duonebs, PRN albuterol, HOB, IS parameters.\ 9. Former alcohol abuse: Patient notes that he has maintained sobriety except for 2 beers several weeks prior to current presentation, encouraged complete sobriety status. 10. Tobacco Abuse: Encouraged cessation, inpatient consultation per RT, NR if desired. 11. GERD: We will continue patient home PPI. 12. BPH: We will continue patient on Flomax regimen. 13. Hx CVA: Continue ASA, IV lasix as noted temporarily, continue statin therapy, holding oral DM regimen as noted. 14. DVT prophylaxis: SCDs, heparin. 15. CODE status: Patient does not have healthcare power of civil rights attorney nor living will in place. Discussed CODE status at length including difference between FULL code, DNR-CCA and DNR-CC status. Following discussions about the differences in these status, requested Full Code status. Advanced Care Planning Face to Face Time: 16 minutes. Charges/Coding Visit Charges Inpatient E&M: 91080 Init Hosp L3 Procedures Hospitalists Procedures: 04654 Advncd Care Plan 30 Min
--- NOTE | 2021-03-14 16:20 | NURSING ---
DR YANA DUNN
--- NOTE | 2021-03-14 16:32 | NURSING ---
PCU WHITE BILATERAL PLEURAL EFFUSIONS, PERICARDIAL EFFUSION, HYPOXIA
[2021-03-14] MEDS: Furosemide 40 MG/4 ML Vial IV (16:52)
[2021-03-14 17:35] LABS: ALB/GLOB Ratio 0.6 RATIO (0.9-2.4); Globulin 4.4 g/dL (2.2-4.2); LDH 207 U/L (87-241); Magnesium 1.7 mg/dL (1.6-2.6); Phosphorus 4.1 mg/dL (2.5-4.9); Protein, Total 7.2 g/dL (6.4-8.2)
--- NOTE | 2021-03-14 17:51 | ECHOD_ITS ---
Reason For Study: ARRHYTHMIA Procedure This was a 2D Doppler, Color Flow transthoracic echocardiogram. Exam performed portable in patient room. Left Ventricle Normal left ventricle. The estimated ejection fraction is EF 50-55 %. Right Ventricle Mildly dilated right ventricle. Mild global right ventricular systolic dysfunction. Atria Normal left atrium. Normal right atrium. Mitral Valve The mitral valve is structurally normal. No prolapse or stenosis seen. No mitral valve insufficiency. Tricuspid Valve Normal tricuspid valve. Mild tricuspid valve insufficiency. Aortic Valve Normal aortic valve. Trivial eccentric aortic valve insufficiency. Pulmonic Valve The pulmonic valve is not well visualized. Great Vessels Normal aortic root. Pericardium/Pleural Small pericardial effusion. MMode/2D Measurements & Calculations LVIDd: 4.6 cm IVSd: 0.95 cm Ao root diam: 3.2 cm LVIDs: 3.4 cm LVPWd: 1.00 cm RVDd: 5.1 cm FS: 26.8 % LAV(MOD-bp): 41.7 ml LVAd ap4: 29.3 cm2 LVAd ap2: 31.4 cm2 LAV(MOD-bp) Indexed: 23.4 ml/m2 LVLd ap4: 8.2 cm LVLd ap2: 8.4 cm LAV(MOD-sp2): 39.8 ml EDV(MOD-sp4): 89.2 ml EDV(MOD-sp2): 96.9 ml LAV(MOD-sp4): 38.7 ml EDV(sp4-el): 89.0 ml EDV(sp2-el): 99.9 ml LVAs ap4: 20.4 cm2 LVAs ap2: 18.8 cm2 LVLs ap4: 7.1 cm LVLs ap2: 6.6 cm ESV(MOD-sp4): 50.8 ml ESV(MOD-sp2): 42.8 ml ESV(sp4-el): 49.5 ml ESV(sp2-el): 45.6 ml EF(MOD-sp4): 43.0 % EF(MOD-sp2): 55.8 % EF(sp4-el): 44.4 % SV(MOD-sp4): 38.3 ml SV(MOD-sp2): 54.1 ml SV(sp4-el): 39.6 ml LA dimension(2D): 4.0 cm LA A4 area: 15.5 cm2 RA A4 area: 14.9 cm2 Time Measurements MV dec time: 0.17 sec Doppler Measurements & Calculations MV E max michael: 89.4 cm/sec Lat Peak E' Michael: 9.1 cm/sec Med Peak E' Michael: 6.8 cm/sec MV A max michael: 73.5 cm/sec E/E' lat: 9.8 E/E' med: 13.2 MV E/A: 1.2 Ao V2 max: 120.1 cm/sec LV V1 max: 90.7 cm/sec PA V2 max: 89.7 cm/sec Ao max P.8 mmHg LV V1 max P.3 mmHg TR max michael: 285.4 cm/sec TR max P.6 mmHg ECHO/Echo Complete Interpretation Summary The estimated ejection fraction is EF 50-55 %. Small pericardial effusion , No significant changes from prior echo Ordering Physician: Angeline Manjarrez Referring Physician: Zurdo Esparza M.D. Performed By: Odalis Morfin, LOREN, RVT
[2021-03-14 18:09] LABS: BNP,B-Type NATRIURETIC PEPTIDE 713.5 pg/mL (0-100)
[2021-03-14 18:16] LABS: Thyroid Stim Hormone (TSH) 1.22 uIU/mL (0.358-3.74); Troponin-I HS 53 pg/mL (3.0-78.0)
[2021-03-14 18:26] LABS: Bedside Glucose 152 mg/dL (70-110)
--- NOTE | 2021-03-14 18:50 | PCS.PANDOC ---
PANDEMIC DOCUMENTATION INITIATED: Date: 02/17/2021 Time: 190
[2021-03-14] MEDS: Ipratropium/Albuterol Sulfate 3 ML AMPUL.NEB INHALATION (19:16)
[2021-03-14 20:21] LABS: Troponin-I HS 58 pg/mL (3.0-78.0)
[2021-03-14] MEDS: Tamsulosin HCl 0.4 MG Capsule PO (21:15)
[2021-03-14] MEDS: fentaNYL 25 MCG Patch TD (21:15)
[2021-03-14] MEDS: Heparin Injection (Vial) 5,000 UNIT/ML VIAL 5000 UNIT SC (21:16)
[2021-03-14] MEDS: Atorvastatin Calcium 40 MG Tablet PO (21:17)
[2021-03-14] MEDS: Potassium Chloride Oral Tablet 20 MEQ PO (21:17)
[2021-03-14] MEDS: Magnesium Chloride 64 MG Delay Rel.Tablet PO (21:21)
[2021-03-14] MEDS: MELATONIN 3 MG TABLET PO (21:21)
[2021-03-14] MEDS: QUEtiapine 100 MG Tablet 300 MG PO (21:22)
[2021-03-14] MEDS: Nortriptyline 25 MG Capsule 50 MG PO (21:23)
[2021-03-14 22:10] LABS: Bedside Glucose 136 mg/dL (70-110)
[2021-03-15] VITALS (12 sets, daily range): BP systolic 103–120; BP diastolic 70–78; PULSE 89–100; RESP 16–20; TEMP 36.2–36.9; O2SAT 90–99
[2021-03-15] MEDS: Magnesium Chloride 64 MG Delay Rel.Tablet PO ×3 (06:00→20:47)
[2021-03-15] MEDS: Levothyroxine 75 MCG Tablet PO (06:00)
[2021-03-15 06:36] LABS: Bedside Glucose 79 mg/dL (70-110)
[2021-03-15 07:35] LABS: Absolute Lymphocyte Count 0.87 X10^3/uL (0.83-4.51); Absolute Neutrophil Count 5.5 X10^3/uL (2.0-7.7); Basophil# 0.03 X10^3/uL; Basophil% 0.4 % (0-1); Eosinophil# 0.22 X10^3/uL; Hematocrit 38.4 % (40-54); Lymphocyte # 0.87 X10^3/ul (0.83-4.51); Mean Corp Hgb Conc 31.3 g/dL (32-36); Mean Corpuscular Hgb 29.3 pg (27.0-32.0); Mean Corpuscular Volume 93.7 fL (80-94); Mean Platelet Vol. 9.7 fl (6.2-12.0); Monocyte# 0.57 X10^3/uL; Monocyte% 7.9 % (0-10); NRBC Flagged by Analyzer 0 % (0-5); Neutrophil # 5.52 X10^3/uL (2.7-7.7); Neutrophil % 76.3 % (47-70); Platelet Count 396 K/mm3 (150-450); RBC Distribution Width SD 53.9 fl (35.1-43.9); White Blood Count 7.2 K/mm3 (4.4-11.0)
[2021-03-15] MEDS: Ipratropium/Albuterol Sulfate 3 ML AMPUL.NEB INHALATION ×3 (07:46→21:21)
[2021-03-15 07:50] LABS: ALB/GLOB Ratio 0.6 RATIO (0.9-2.4); AST(SGOT) 9 U/L (15-37); Alanine Aminotransfer ALT/SGPT 9 U/L (16-61); Albumin, Serum 2.4 g/dL (3.2-5.0); Alkaline Phosphatase 93 U/L (45-117); Anion Gap 3 (5-15); BUN 10 mg/dL (7-18); BUN/Creat Ratio 8.3 RATIO (10-20); Calcium,Total 8.7 mg/dL (8.5-10.1); Chloride 101 mmol/L (98-107); EST Glomerular Filtration Rate 66 mL/min (>60); Est Glom Filt Rate - Afr Amer 80 mL/min (>60); Estimated Creatinine Clearance 60.55 ml/min; Globulin 4.2 g/dL (2.2-4.2); Glucose 113 mg/dL (74-106); Potassium 3.8 mmol/L (3.5-5.1); Protein, Total 6.6 g/dL (6.4-8.2); Sodium Level 140 mmol/L (136-145)
[2021-03-15] MEDS: Heparin Injection (Vial) 5,000 UNIT/ML VIAL 5000 UNIT SC ×2 (08:26→20:48)
[2021-03-15] MEDS: Citalopram 40 MG TABLET PO (08:26)
[2021-03-15] MEDS: Potassium Chloride Oral Tablet 20 MEQ PO ×2 (08:26→20:48)
[2021-03-15] MEDS: Aspirin 81 MG TAB.CHEW PO (08:27)
[2021-03-15] MEDS: Pantoprazole Sodium 40 MG Tablet PO (08:27)
[2021-03-15] MEDS: Calcium Carbonate 500 MG Tablet PO ×2 (08:29→16:35)
[2021-03-15 11:36] LABS: Bedside Glucose 117 mg/dL (70-110)
--- NOTE | 2021-03-15 12:15 | CASEMGMT ---
DANG VALENTIN Assessment: Face to Face with pt for initial transition planning/care coordination assessment. DANG VALENTIN introduced self and role at [facility], pt voices understanding and consents to assessment. Pt is A/O x4 and answers all questions appropriately at this time. Pt sitting up in bed eating lunch in no distress with O2 on. Care providers, pharmacy, and demographics verified/updated. Admitting Dx: bilat pleural effusion, pericardial effusion PCP:Isaias Specialists:Masci, onc; cardiology at [facility], unsure of name; Testrake, pod; Basali, pain mgmt Preferred Pharmacy: [facility] Insurance: My Care CRSC, [facility] Prescription Benefit: yes LW/HPOA: Pt states he has a LW/DPOA, it is on file at [facility]. Pt DPOA is Carmine Givens, brother LNOK: Carmine Givens, brother; Heather Bobby, mother Living Arrangements: Pt lives alone in an apt building with steps or elevator to enter. Pt reports he is I in ADL's and denies concerns at home. Transportation: Pt drives self and denies concerns with transportation. DME/HHC/SNF: Pt has a BP cuff, quad cane and 4wheeled rollator. Pt is current with [facility] for SN and PT. Pt has been in the [address] in the past. Pt reports he smokes 1.5 packs a day. States he quit drinking alcohol since November but in the past week has started drinking 1-2 beers a day. Pt denies using street drugs and uses marijuana 2-3 x/wk. Pt denies need for any resources for the above. Pt states he is current with [facility]. TC to [facility] and left message on line stating pt is admitted. Unable to reach [facility]. Pt would like to resume all services upon dc. Pt states no concerns with going home at time of dc. Pt states no further concerns/needs. CM to follow. Advised pt to ask CM if any further question/concerns/needs arise, voices understanding. Pt Goal: Home with resumption of HHC and Palliative. Plan: Home with resumption of HHC and Palliative.
--- NOTE | 2021-03-15 14:58 | PCM.PN.HOSP ---
Documented by User: Brynn Reid WIRE WEAVING LOOM SETTER, WIRE WEAVING LOOM SETTER-C 03/15/21 15:12 Subjective Subjective Patient seen and examined. Reports improvement in breathing. Denies fever, chills. Reports intermittent cough. Objective Data Objective Data Vital Signs: Vital Signs Temp Pulse Resp BP Pulse Ox 98.0 F 98 18 117/71 94 03/15/21 14:40 03/15/21 14:40 03/15/21 14:40 03/15/21 14:40 03/15/21 14:40 Oxygen Flow Rate (L/min) 2 Oxygen Delivery Method Nasal Cannula Weight: 133 lb 13.129 oz Body Mass Index (BMI) 24.5 Intake & Output: Intake and Output for Last 24 Hours 03/13/21 03/14/21 03/15/21 23:59 23:59 23:59 Intake Total 740 / 740 460 / 460 Output Total 800 / 800 Balance -60 / -60 460 / 460 Lab / Micro Data Result Diagrams: 03/15/21 07:00 03/15/21 07:00 Labs: Laboratory Results - last 24 hr 03/14/21 13:25: Phosphorus 4.1, Magnesium 1.7, Lactate Dehydrogenase 207, Total Protein 7.2, Globulin 4.4 H, Albumin/Globulin Ratio 0.6 L 03/14/21 13:25: B-Natriuretic Peptide 713.5 H 03/14/21 13:25: Troponin I High Sens 53, TSH 1.22, Free T4 0.90 03/14/21 18:20: POC Glucose 152 H 03/14/21 19:15: Troponin I High Sens 58 03/14/21 21:58: POC Glucose 136 H 03/15/21 06:13: POC Glucose 79 03/15/21 07:00: WBC 7.2, RBC 4.10 L, Hgb 12.0 L, Hct 38.4 L, MCV 93.7, MCH 29.3, MCHC 31.3 L, RDW Std Deviation 53.9 H, RDW Coeff of Sophie 16.0 H, Plt Count 396, MPV 9.7, Immature Gran % (Auto) 0.400, Neut % (Auto) 76.3 H, Lymph % (Auto) 12.0 L, [place] % (Auto) 7.9, Eos % (Auto) 3.0, Baso % (Auto) 0.4, Absolute Neuts (auto) 5.5, Absolute Lymphs (auto) 0.87, Nucleated RBC % 0 03/15/21 07:00: Sodium 140, Potassium 3.8, Chloride 101, Carbon Dioxide 36.0 H, Anion Gap 3 L, BUN 10, Creatinine 1.20, Estim Creat Clear Calc 60.55, Est GFR (MDRD) Af Amer 80, Est GFR (MDRD) Non-Af 66, BUN/Creatinine Ratio 8.3 L, Glucose 113 H, Calcium 8.7, Total Bilirubin 0.20, AST 9 L, ALT 9 L, Alkaline Phosphatase 93, Total Protein 6.6, Albumin 2.4 L, Globulin 4.2, Albumin/Globulin Ratio 0.6 L 03/15/21 11:28: POC Glucose 117 H Micro: Microbiology 03/14/21 19:15 Interface Orders Respiratory Panel (PCR) - Final 03/14/21 13:25 Nasal Secretion SARS-CoV-2 Antigen (Rapid) - Final Radiography Diagnostic Testing: Radiology Impression Chest CTA 03/14/21 14:13 IMPRESSION: Bilateral pleural effusions left greater than right with bibasilar atelectasis. Moderate sized pericardial effusion. No evidence of pulmonary embolism. Electronically Signed: Baljinder Olivo MD at 15:37 EDT , Service support , Echocardiogram 03/14/21 17:51 Interpretation Summary The estimated ejection fraction is EF 50-55 %. Small pericardial effusion , No significant changes from prior echo Ordering Physician: Angeline Manjarrez Referring Physician: Zurdo Esparza M.D. Performed By: Odalis Morfin, LOREN, RVT Physical Exam Const alert, oriented x3 and no apparent distress Orientation / Consciousness: awake, oriented to person, oriented to place and oriented to time HEENT normocephalic and moist oral mucous membranes Eyes PERRL, EOMs intact bilaterally and conjunctivae normal Neck no lymphadenopathy Resp clear to auscultation bilaterally Auscultation: diminished lung sounds Cardio regular rate, regular rhythm and no murmurs Peripheral Pulses: pulses 2+ throughout GI normal to inspection, nondistended, normoactive bowel sounds, non-tender and non-distended Extremity normal to inspection Skin no rashes or lesions noted Lesions: no lesions Rashes: no rashes Trauma: no lacerations or abrasions Neuro CN's II-XII intact bilaterally, no focal motor deficits, no sensory deficits noted and deep tendon reflexes 2+ bilaterally Psych mental status grossly normal and affect normal Assessment & Plan Assessment/Plan (1) Bilateral pleural effusion: PLAN: 1. Acute hypoxic respiratory insufficiency secondary to bilateral pleural effusions as a result of acute heart failure with preserved ejection fraction, complicated by non-small cell lung cancer-continue supplement oxygen to maintain O2 at above 90%. Wean oxygen as tolerated. Home oxygen testing prior to discharge. 2. Bilateral pleural effusions-suspect related to heart failure. Plan for repeat chest x-ray following diuresis. Thoracentesis diagnostic and therapeutic ordered for Wednesday. 3. Acute heart failure with preserved ejection fraction-cardiology consulted. Echocardiogram January 2021 at [facility] with EF 57%, small pericardial effusion. Repeat echocardiogram demonstrates an EF of 50 to 55%, small pericardial effusion. IV Lasix. Strict I&O. Daily weight. 4. Non-small cell lung cancer- follows with Dr. Harper. 5. Acute kidney injury-resolved. 6. Type 2 diabetes panoavna-Tjtc-Ymhtr with sliding scale insulin. 7. Anxiety/depression-on escitalopram, Seroquel. 8. Hyperlipidemia-continue statin. 9. Hypothyroidism-continue Synthroid regimen. 10. Chronic pain syndrome-on fentanyl patch. 11. Chronic COPD-no exacerbation. As needed albuterol aerosol. 12. Former alcohol abuse-in remission. 13. Tobacco dependence-encouraged cessation. 14. GERD-continue PPI. 15. BPH-continue Flomax. 16. History of CVA-on aspirin, statin. 17. Bilateral carotid stenosis-Following with Dr. Barboza, vascular surgery as outpatient. Surgical intervention was not recommended. Previous CTA with greater than 70% stenosis bilaterally. Luke to be over read per vascular medicine. Repeat duplex ultrasound showed less than 50% stenosis bilaterally. DVT prophylaxis-Heparin subcu This patient was seen by Brynn Reid NP-Agustina under the supervision of Dr. Blackburn. Documented by User: Dr. Taurus Blackburn, 03/15/21 20:18 Objective Data Lab / Micro Data Result Diagrams: 03/15/21 07:00 03/15/21 07:00 Charges/Coding Addendum Addendum: Patient was seen and examined independently of Brynn Reid, he was seen in consultation by cardiology today due to his abnormal chest CTA which indicated a pericardial effusion, his echocardiogram however today did not show a pericardial effusion that was significant. Patient's EF today on his echocardiogram was 50 to 55%. On examination he appeared in good health and spirits. Vital signs as documented. Skin warm and dry and without overt rashes. Neck without JVD, neck was supple, trachea midline, thyroid was normal. Lungs-decreased breath sounds were noted over the patient's left lower lung choudhary. Heart exam notable for regular rhythm, normal sounds and absence of murmurs, rubs or gallops. Abdomen unremarkable and without evidence of organomegaly, masses, or abdominal aortic enlargement. Bowel sounds are present, abdomen is not distended. Extremities nonedematous, no cyanosis was noted, no clubbing was noted. Neuro: Cranial nerves II through XII are grossly intact, no focal motor deficits were noted, sensation to light touch and pinprick intact, motor exam 5/5 throughout. Psych: Patient is alert and oriented x3, he does not appear anxious or depressed, he does not appear agitated. Patient will need a diagnostic thoracentesis performed, this will not be performed until Wednesday. Patient has a past history of lung cancer, he told me that his lung cancer was located in his left lung and I am suspicious he has recurrent lung cancer. I have reviewed Brynn Reid's progress note including her medical assessment and plan of care and endorse it. Visit Charges Inpatient E&M: 45876 Subs Hosp L2
--- NOTE | 2021-03-15 15:33 | CON.PCM.CA_ITS ---
Assessment & Plan Assessment/Plan (1) Bilateral pleural effusion: (2) EVERARDO (acute kidney injury): (3) Non-small cell lung cancer: QUALIFIERS: Laterality: left Qualified Code(s): C34.92 - Malignant neoplasm of unspecified part of left bronchus or lung (4) Pericardial effusion without cardiac tamponade: PLAN: This with non-small cell lung cancer Cardiac auscultation requested to evaluate for pericardial effusion Had an echocardiogram which showed preserved LV systolic function with a small pericardial effusion and no hemodynamic compromise In particular no echocardiographic evidence of cardiac tamponade. Cardiac recommendation plan; No further cardiac input required Patient to follow-up with her primary dining manager Dr. aJck as an outpatient at the [facility]. (5) Adenocarcinoma of left lung: HPI Consult Data Date of Consult: 03/15/21 HPI Narrative Reason for Consultation: Evaluate for pericardial effusion HPI Narrative: PATIENCE DEVINE, is a 56 M who [facility] Medical History Alcohol abuse Barretts esophagus Carotid stenosis Closed right hip fracture Depression GERD (gastroesophageal reflux disease) History of CVA (cerebrovascular accident) (08/25/19) Hypothyroidism Major depression with psychotic features New onset seizure Non-small cell lung cancer Peripheral neuropathy Vitamin D deficiency Home Medications citalopram 40 mg PO DAILY 12/15/16 [History Last Taken 03/13/21] levothyroxine 75 mcg PO DAILY 10/09/19 [History Last Taken 03/14/21] omeprazole 40 mg PO DAILY 10/09/19 [History Last Taken 03/14/21] ergocalciferol (vitamin D2) 50,000 unit PO FR 11/23/19 [History Last Taken 03/14/21] sitagliptin 100 mg PO DAILY 08/14/20 [History Last Taken 03/13/21] melatonin 3 mg PO QHS 10/28/20 [History Last Taken 03/13/21] potassium chloride 20 mEq tablet,extended release(part/cryst) 20 meq PO BID tab 11/27/20 [History Last Taken 03/14/21] aspirin 81 mg PO DAILY@0800 12/02/20 [History Last Taken 03/14/21] atorvastatin 40 mg PO DAILY 12/02/20 [History Last Taken 03/13/21] calcium carbonate 500 mg PO BIDCM 12/02/20 [History Last Taken 03/14/21] magnesium chloride 71.5 mg PO Q8H 12/02/20 [History Last Taken 03/14/21] quetiapine 300 mg PO QHS 12/02/20 [History Last Taken 03/13/21] tamsulosin 0.4 mg PO DAILY@1730 12/02/20 [History Last Taken 03/13/21] midodrine 2.5 mg tablet 2.5 mg PO TID PRN tab 01/08/21 [History Last Taken 03/14/21] fentanyl 25 mcg TRANSDERMAL .Q72H 03/14/21 [History Last Taken 03/11/21] nortriptyline 50 mg PO QHS 03/14/21 [History Last Taken 03/13/21] Allergy/AdvReac Type Severity Reaction Status Date / Time No Known Allergies Allergy Verified 03/14/21 12:31 Family History (Updated 03/14/21 @ 17:[address] Natalie Neely MD) Father Heart disease Mother Heart disease CAD, Hx CABG. CAD (coronary artery disease) CAD, Hx CABG Diabetes Surgical History History of hemiarthroplasty of right hip History of liver biopsy History of right hip replacement (~11/2019) Social History (Updated 03/14/21 @ 17:[address] Natalie Neely MD) household members: none Smoking Status: Current every day smoker tobacco type: cigarettes Smoking packs per day: 1.5 Smoking cigarettes per day: 30.0 alcohol intake: former details: Patient stated that he quit drinking 6 months ago except did have 2 beers. substance use type: marijuana Physical Exam Narrative Patient alert orientated Not in acute distress Cardiovascular exam cardiac monitor technician showed normal sinus rhythm S1-S2 is regular there is no murmur no systolic or diastolic murmur Chest examination diminished air entry bilateral more prominent on the left side with minimal basal rales Abdomen soft Examination lower extremity no clubbing no cyanosis no lower extremity edema. Central nervous system exam no focal neurological deficit. Objective Data Vital Signs: Vital Signs Temp Pulse Resp BP Pulse Ox 98.0 F 98 18 117/71 94 03/15/21 14:40 03/15/21 14:40 03/15/21 14:40 03/15/21 14:40 03/15/21 14:40 Oxygen Flow Rate (L/min) 2 Oxygen Delivery Method Nasal Cannula Weight: 133 lb 13.129 oz Body Mass Index (BMI) 24.5 Intake & Output: Intake and Output for Last 24 Hours 03/13/21 03/14/21 03/15/21 23:59 23:59 23:59 Intake Total 740 / 740 460 / 460 Output Total 800 / 800 Balance -60 / -60 460 / 460 Lab / Micro Data Result Diagrams: 03/15/21 07:00 03/15/21 07:00 Labs: Laboratory Results - last 24 hr 03/14/21 13:25: Phosphorus 4.1, Magnesium 1.7, Lactate Dehydrogenase 207, Total Protein 7.2, Globulin 4.4 H, Albumin/Globulin Ratio 0.6 L 03/14/21 13:25: B-Natriuretic Peptide 713.5 H 03/14/21 13:25: Troponin I High Sens 53, TSH 1.22, Free T4 0.90 03/14/21 18:20: POC Glucose 152 H 03/14/21 19:15: Troponin I High Sens 58 03/14/21 21:58: POC Glucose 136 H 03/15/21 06:13: POC Glucose 79 03/15/21 07:00: WBC 7.2, RBC 4.10 L, Hgb 12.0 L, Hct 38.4 L, MCV 93.7, MCH 29.3, MCHC 31.3 L, RDW Std Deviation 53.9 H, RDW Coeff of Sophie 16.0 H, Plt Count 396, MPV 9.7, Immature Gran % (Auto) 0.400, Neut % (Auto) 76.3 H, Lymph % (Auto) 12.0 L, [place] % (Auto) 7.9, Eos % (Auto) 3.0, Baso % (Auto) 0.4, Absolute Neuts (auto) 5.5, Absolute Lymphs (auto) 0.87, Nucleated RBC % 0 03/15/21 07:00: Sodium 140, Potassium 3.8, Chloride 101, Carbon Dioxide 36.0 H, Anion Gap 3 L, BUN 10, Creatinine 1.20, Estim Creat Clear Calc 60.55, Est GFR (MDRD) Af Amer 80, Est GFR (MDRD) Non-Af 66, BUN/Creatinine Ratio 8.3 L, Glucose 113 H, Calcium 8.7, Total Bilirubin 0.20, AST 9 L, ALT 9 L, Alkaline Phosphatase 93, Total Protein 6.6, Albumin 2.4 L, Globulin 4.2, Albumin/Globulin Ratio 0.6 L 03/15/21 11:28: POC Glucose 117 H Micro: Microbiology 03/14/21 19:15 Interface Orders Respiratory Panel (PCR) - Final 03/14/21 13:25 Nasal Secretion SARS-CoV-2 Antigen (Rapid) - Final Cardiology Labs/Tests 03/14/21 13:25: Phosphorus 4.1, Magnesium 1.7 03/14/21 13:25: B-Natriuretic Peptide 713.5 H 03/15/21 07:00: WBC 7.2, RBC 4.10 L, Hgb 12.0 L, Hct 38.4 L, MCV 93.7, MCH 29.3, MCHC 31.3 L, Plt Count 396, MPV 9.7, Immature Gran % (Auto) 0.400, Neut % (Auto) 76.3 H, Lymph % (Auto) 12.0 L, [place] % (Auto) 7.9, Eos % (Auto) 3.0, Baso % (Auto) 0.4, Absolute Neuts (auto) 5.5, Nucleated RBC % 0 03/15/21 07:00: Sodium 140, Potassium 3.8, Chloride 101, Carbon Dioxide 36.0 H, Anion Gap 3 L, BUN 10, Creatinine 1.20, Est GFR (MDRD) Af Amer 80, Est GFR (MDRD) Non-Af 66, BUN/Creatinine Ratio 8.3 L, Glucose 113 H, Calcium 8.7, Total Bilirubin 0.20 Rhythm: Normal sinus rhythm. : Radiography Diagnostic Testing: Radiology Impression Chest CTA 03/14/21 14:13 IMPRESSION: Bilateral pleural effusions left greater than right with bibasilar atelectasis. Moderate sized pericardial effusion. No evidence of pulmonary embolism. Electronically Signed: Baljinder Olivo MD at 15:37 EDT , Service support , Echocardiogram 03/14/21 17:51 Interpretation Summary The estimated ejection fraction is EF 50-55 %. Small pericardial effusion , No significant changes from prior echo Ordering Physician: Angeline Manjarrez Referring Physician: Zurdo Esparza M.D. Performed By: Odalis Morfin, LOREN, RVT
[2021-03-15] MEDS: Tamsulosin HCl 0.4 MG Capsule PO (16:35)
[2021-03-15] MEDS: 0.9% Saline Lock 10 ML Syringe IV (16:36)
[2021-03-15] MEDS: Furosemide 40 MG/4 ML Vial IV (16:37)
[2021-03-15 17:36] LABS: Bedside Glucose 130 mg/dL (70-110)
[2021-03-15] MEDS: Nortriptyline 25 MG Capsule 50 MG PO (20:47)
[2021-03-15] MEDS: QUEtiapine 100 MG Tablet 300 MG PO (20:48)
[2021-03-15] MEDS: Atorvastatin Calcium 40 MG Tablet PO (20:48)
[2021-03-15] MEDS: MELATONIN 3 MG TABLET PO (20:48)
[2021-03-15 21:16] LABS: Bedside Glucose 135 mg/dL (70-110)
[2021-03-16] VITALS (14 sets, daily range): BP systolic 98–125; BP diastolic 57–76; PULSE 88–104; RESP 16–20; TEMP 36.7–37; O2SAT 90–96
[2021-03-16 05:39] LABS: Absolute Lymphocyte Count 0.85 X10^3/uL (0.83-4.51); Absolute Neutrophil Count 7.4 X10^3/uL (2.0-7.7); Basophil# 0.05 X10^3/uL; Basophil% 0.5 % (0-1); Eosinophil# 0.23 X10^3/uL; Eosinophils% 2.5 % (0-5); Hematocrit 41.7 % (40-54); Hemoglobin 12.9 g/dL (13.0-16.5); Lymphocyte # 0.85 X10^3/ul (0.83-4.51); Lymphocyte % 9.2 % (19-41); Mean Corp Hgb Conc 30.9 g/dL (32-36); Mean Corpuscular Volume 93.7 fL (80-94); Mean Platelet Vol. 9.5 fl (6.2-12.0); Monocyte# 0.58 X10^3/uL; Monocyte% 6.3 % (0-10); NRBC Flagged by Analyzer 0 % (0-5); Neutrophil # 7.37 X10^3/uL (2.7-7.7); Neutrophil % 79.8 % (47-70); Platelet Count 460 K/mm3 (150-450); RBC Distribution Width CV 15.9 % (11.6-14.6); Red Blood Count 4.45 M/mm3 (4.6-6.2); White Blood Count 9.2 K/mm3 (4.4-11.0)
[2021-03-16 06:23] LABS: Anion Gap 4 (5-15); BUN 21 mg/dL (7-18); BUN/Creat Ratio 15.8 RATIO (10-20); Chloride 94 mmol/L (98-107); Creatinine, Serum 1.33 mg/dL (0.70-1.30); EST Glomerular Filtration Rate 59 mL/min (>60); Est Glom Filt Rate - Afr Amer 71 mL/min (>60); Estimated Creatinine Clearance 52.23 ml/min; Glucose 97 mg/dL (74-106); Potassium 4.1 mmol/L (3.5-5.1); Sodium Level 135 mmol/L (136-145)
[2021-03-16] MEDS: Magnesium Chloride 64 MG Delay Rel.Tablet PO ×3 (06:34→22:17)
[2021-03-16] MEDS: Levothyroxine 75 MCG Tablet PO (06:34)
[2021-03-16 06:56] LABS: Bedside Glucose 97 mg/dL (70-110)
[2021-03-16] MEDS: Ipratropium/Albuterol Sulfate 3 ML AMPUL.NEB INHALATION ×3 (06:59→19:05)
[2021-03-16] MEDS: Calcium Carbonate 500 MG Tablet PO ×2 (08:23→16:48)
[2021-03-16] MEDS: Aspirin 81 MG TAB.CHEW PO (08:23)
[2021-03-16] MEDS: Acetaminophen 325 MG Tablet 650 MG PO (08:23)
[2021-03-16] MEDS: Heparin Injection (Vial) 5,000 UNIT/ML VIAL 5000 UNIT SC ×2 (09:38→22:16)
[2021-03-16] MEDS: Pantoprazole Sodium 40 MG Tablet PO (09:38)
[2021-03-16] MEDS: Citalopram 40 MG TABLET PO (09:38)
[2021-03-16] MEDS: Potassium Chloride Oral Tablet 20 MEQ PO ×2 (09:39→22:16)
--- NOTE | 2021-03-16 11:06 | PCM.PN.HOSP ---
Documented by User: Brynn Reid RFID DEVELOPER, RFID DEVELOPER-C 03/16/21 11:22 Subjective Subjective Patient seen and examined. Reports ongoing shortness of breath however not worsened from prior. Denies fever, chills. Reports nonproductive cough. Discussed plan of care including thoracentesis tomorrow. Denies questions or concerns. Objective Data Objective Data Vital Signs: Vital Signs Temp Pulse Resp BP Pulse Ox 98.1 F 104 H 18 98/68 94 03/16/21 09:27 03/16/21 09:27 03/16/21 09:27 03/16/21 09:27 03/16/21 09:27 Oxygen Flow Rate (L/min) 3 Oxygen Delivery Method Nasal Cannula Weight: 134 lb 7.712 oz Body Mass Index (BMI) 24.5 Intake & Output: Intake and Output for Last 24 Hours 03/14/21 03/15/21 03/16/21 23:59 23:59 23:59 Intake Total 740 / 740 700 / 940 360 / 360 Output Total 800 / 800 Balance -60 / -60 700 / 940 360 / 360 Lab / Micro Data Result Diagrams: 03/16/21 05:15 03/16/21 05:15 Labs: Laboratory Results - last 24 hr 03/15/21 11:28: POC Glucose 117 H 03/15/21 16:32: POC Glucose 130 H 03/15/21 20:46: POC Glucose 135 H 03/16/21 05:15: WBC 9.2, RBC 4.45 L, Hgb 12.9 L, Hct 41.7, MCV 93.7, MCH 29.0, MCHC 30.9 L, RDW Std Deviation 54.0 H, RDW Coeff of Sophie 15.9 H, Plt Count 460 H, MPV 9.5, Immature Gran % (Auto) 1.700 H, Neut % (Auto) 79.8 H, Lymph % (Auto) 9.2 L, [place] % (Auto) 6.3, Eos % (Auto) 2.5, Baso % (Auto) 0.5, Absolute Neuts (auto) 7.4, Absolute Lymphs (auto) 0.85, Nucleated RBC % 0 03/16/21 05:15: Sodium 135 L, Potassium 4.1, Chloride 94 L, Carbon Dioxide 37.0 H, Anion Gap 4 L, BUN 21 H, Creatinine 1.33 H, Estim Creat Clear Calc 52.23, Est GFR (MDRD) Af Amer 71, Est GFR (MDRD) Non-Af 59 L, BUN/Creatinine Ratio 15.8, Glucose 97, Calcium 9.0 03/16/21 06:33: POC Glucose 97 Micro: Microbiology 03/14/21 19:15 Interface Orders Respiratory Panel (PCR) - Final 03/14/21 13:25 Nasal Secretion SARS-CoV-2 Antigen (Rapid) - Final Radiography Diagnostic Testing: Radiology Impression Echocardiogram 03/14/21 17:51 Interpretation Summary The estimated ejection fraction is EF 50-55 %. Small pericardial effusion , No significant changes from prior echo Ordering Physician: Angeline Manjarrez Referring Physician: Zurdo Esparza M.D. Performed By: Odalis Morfin, LOREN, RVT Physical Exam Const alert, oriented x3 and no apparent distress Orientation / Consciousness: awake, oriented to person, oriented to place and oriented to time HEENT normocephalic and moist oral mucous membranes Eyes PERRL, EOMs intact bilaterally and conjunctivae normal Neck no lymphadenopathy Resp clear to auscultation bilaterally Auscultation: diminished lung sounds Cardio regular rate, regular rhythm and no murmurs Peripheral Pulses: pulses 2+ throughout GI normal to inspection, nondistended, normoactive bowel sounds, non-tender and non-distended Extremity normal to inspection Skin no rashes or lesions noted Lesions: no lesions Rashes: no rashes Trauma: no lacerations or abrasions Neuro CN's II-XII intact bilaterally, no focal motor deficits, no sensory deficits noted and deep tendon reflexes 2+ bilaterally Psych mental status grossly normal and affect normal Assessment & Plan Assessment/Plan (1) Hypoxia: (2) Bilateral pleural effusion: PLAN: 1. Acute hypoxic respiratory insufficiency secondary to bilateral pleural effusions as a result of acute heart failure with preserved ejection fraction, complicated by non-small cell lung cancer-continue supplement oxygen to maintain O2 at above 90%. Wean oxygen as tolerated. Home oxygen testing prior to discharge. 2. Bilateral pleural effusions-suspect related to heart failure vs recurrence of malignancy. Thoracentesis diagnostic and therapeutic ordered for Wednesday with labs. 3. Acute heart failure with preserved ejection fraction-cardiology consulted. Echocardiogram January 2021 at [facility] with EF 57%, small pericardial effusion. Repeat echocardiogram demonstrates an EF of 50 to 55%, small pericardial effusion. DC further IV Lasix due to borderline low blood pressure, transition to oral Lasix with hold parameters. Strict I&O. Daily weight. 4. Non-small cell lung cancer- follows with Dr. Harper. Last treatment 6 months ago. 5. Acute kidney injury-resolved. 6. Type 2 diabetes [id number] with sliding scale insulin. 7. Anxiety/depression-on escitalopram, Seroquel. 8. Hyperlipidemia-continue statin. 9. Hypothyroidism-continue Synthroid regimen. 10. Chronic pain syndrome-on fentanyl patch. 11. Chronic COPD-no exacerbation. As needed albuterol aerosol. 12. Former alcohol abuse-in remission. 13. Tobacco dependence-encouraged cessation. 14. GERD-continue PPI. 15. BPH-continue Flomax. 16. History of CVA-on aspirin, statin. 17. Bilateral carotid stenosis-Following with Dr. Barboza, vascular surgery as outpatient. Surgical intervention was not recommended. Previous CTA with greater than 70% stenosis bilaterally. [place] to be over read per vascular medicine. Repeat duplex ultrasound showed less than 50% stenosis bilaterally. DVT prophylaxis-Heparin subcu This patient was seen by ANGEL Johnson under the supervision of Dr. Blackburn. Documented by User: Dr. Taurus Blackburn, 03/16/21 19:10 Objective Data Lab / Micro Data Result Diagrams: 03/16/21 05:15 03/16/21 05:15 Charges/Coding Addendum Addendum: Patient was seen and examined independently of Brynn Reid today, he will undergo thoracentesis tomorrow. On examination he appeared in good health and spirits. Vital signs as documented. Skin warm and dry and without overt rashes. Neck without JVD, neck was supple, trachea midline, thyroid was normal. Lungs-decreased breath sounds were noted at the left lung base. Heart exam notable for regular rhythm, normal sounds and absence of murmurs, rubs or gallops. Abdomen unremarkable and without evidence of organomegaly, masses, or abdominal aortic enlargement. Bowel sounds are present, abdomen is not distended. Extremities nonedematous, no cyanosis was noted, no clubbing was noted. Neuro: Cranial nerves II through XII are grossly intact, no focal motor deficits were noted, sensation to light touch and pinprick intact, motor exam 5/5 throughout. Psych: Patient is alert and oriented x3, he does not appear anxious or depressed, he does not appear agitated. I have reviewed Brynn Reid's progress note including her medical assessment and plan of care and endorse it. Visit Charges Inpatient E&M: 43822 Subs Hosp L2
[2021-03-16 11:45] LABS: Bedside Glucose 128 mg/dL (70-110)
--- NOTE | 2021-03-16 14:46 | PN.CARD_ITS ---
Subjective Subjective Patient seen evaluated bedside Mild symptoms of shortness of breath with cough no chest pain reported. Objective Data Vital Signs: Vital Signs Temp Pulse Resp BP Pulse Ox 98.1 F 88 18 104/66 93 03/16/21 12:56 03/16/21 12:56 03/16/21 12:56 03/16/21 12:56 03/16/21 12:56 Oxygen Flow Rate (L/min) 2 Oxygen Delivery Method Nasal Cannula Weight: 134 lb 7.712 oz Body Mass Index (BMI) 24.5 Intake & Output: Intake and Output for Last 24 Hours 03/14/21 03/15/21 03/16/21 23:59 23:59 23:59 Intake Total 740 / 740 700 / 940 760 / 760 Output Total 800 / 800 Balance -60 / -60 700 / 940 760 / 760 Lab / Micro Data Result Diagrams: 03/16/21 05:15 03/16/21 05:15 Labs: Laboratory Results - last 24 hr 03/15/21 16:32: POC Glucose 130 H 03/15/21 20:46: POC Glucose 135 H 03/16/21 05:15: WBC 9.2, RBC 4.45 L, Hgb 12.9 L, Hct 41.7, MCV 93.7, MCH 29.0, MCHC 30.9 L, RDW Std Deviation 54.0 H, RDW Coeff of Sophie 15.9 H, Plt Count 460 H, MPV 9.5, Immature Gran % (Auto) 1.700 H, Neut % (Auto) 79.8 H, Lymph % (Auto) 9.2 L, [place] % (Auto) 6.3, Eos % (Auto) 2.5, Baso % (Auto) 0.5, Absolute Neuts (auto) 7.4, Absolute Lymphs (auto) 0.85, Nucleated RBC % 0 03/16/21 05:15: Sodium 135 L, Potassium 4.1, Chloride 94 L, Carbon Dioxide 37.0 H, Anion Gap 4 L, BUN 21 H, Creatinine 1.33 H, Estim Creat Clear Calc 52.23, Est GFR (MDRD) Af Amer 71, Est GFR (MDRD) Non-Af 59 L, BUN/Creatinine Ratio 15.8, Glucose 97, Calcium 9.0 03/16/21 06:33: POC Glucose 97 03/16/21 11:18: POC Glucose 128 H Cardiology Labs/Tests 03/16/21 05:15: WBC 9.2, RBC 4.45 L, Hgb 12.9 L, Hct 41.7, MCV 93.7, MCH 29.0, MCHC 30.9 L, Plt Count 460 H, MPV 9.5, Immature Gran % (Auto) 1.700 H, Neut % (Auto) 79.8 H, Lymph % (Auto) 9.2 L, [place] % (Auto) 6.3, Eos % (Auto) 2.5, Baso % (Auto) 0.5, Absolute Neuts (auto) 7.4, Nucleated RBC % 0 03/16/21 05:15: Sodium 135 L, Potassium 4.1, Chloride 94 L, Carbon Dioxide 37.0 H, Anion Gap 4 L, BUN 21 H, Creatinine 1.33 H, Est GFR (MDRD) Af Amer 71, Est GFR (MDRD) Non-Af 59 L, BUN/Creatinine Ratio 15.8, Glucose 97, Calcium 9.0 Rhythm: Normal sinus rhythm Physical Exam Narrative Patient alert orientated Review of the monitoring and evaluation advisor showed normal sinus rhythm Cardiac examination S1-S2 regular there is no murmur no systolic or diastolic murmur Chest exam diminished air entry bilaterally more prominent on the left side With mild basal crackles Examination lower extremity no clubbing no cyanosis no extremity edema Central system exam no focal neurological deficit. Assessment & Plan Assessment/Plan (1) Bilateral pleural effusion: (2) Pericardial effusion without cardiac tamponade: PLAN: 56-year-old patient with non-small cell lung cancer With acute kidney injury Has echocardiographic evaluation which showed a small pericardial effusion with no hemodynamic compromise in particular no echocardiographic evidence of cardiac tamponade Card examination essentially normal Cardiac recommendations; 1. Patient with non-small cell lung cancer with bilateral pleural effusion and small pericardial effusion Has preserved ejection fraction. No further cardiac evaluation would be required. We will sign out and will be available as needed. (3) Non-small cell lung cancer: QUALIFIERS: Laterality: left Qualified Code(s): C34.92 - Malignant neoplasm of unspecified part of left bronchus or lung
[2021-03-16] MEDS: Furosemide 40 MG Tablet PO (16:48)
[2021-03-16] MEDS: Tamsulosin HCl 0.4 MG Capsule PO (16:48)
[2021-03-16 16:56] LABS: Bedside Glucose 137 mg/dL (70-110)
[2021-03-16] MEDS: QUEtiapine 100 MG Tablet 300 MG PO (22:17)
[2021-03-16] MEDS: Nortriptyline 25 MG Capsule 50 MG PO (22:17)
[2021-03-16] MEDS: MELATONIN 3 MG TABLET PO (22:17)
[2021-03-16] MEDS: Atorvastatin Calcium 40 MG Tablet PO (22:25)
[2021-03-16 22:35] LABS: Bedside Glucose 139 mg/dL (70-110)
[2021-03-17] VITALS (14 sets, daily range): BP systolic 98–158; BP diastolic 62–82; PULSE 72–101; RESP 12–20; TEMP 36.5–36.8; O2SAT 91–100
[2021-03-17] MEDS: Magnesium Chloride 64 MG Delay Rel.Tablet PO ×3 (06:30→21:07)
[2021-03-17] MEDS: Levothyroxine 75 MCG Tablet PO (06:30)
[2021-03-17] MEDS: Ipratropium/Albuterol Sulfate 3 ML AMPUL.NEB INHALATION ×2 (06:40→19:40)
[2021-03-17 06:46] LABS: Bedside Glucose 99 mg/dL (70-110)
[2021-03-17 08:00] LABS: Absolute Lymphocyte Count 0.92 X10^3/uL (0.83-4.51); Absolute Neutrophil Count 7.5 X10^3/uL (2.0-7.7); Basophil# 0.03 X10^3/uL; Basophil% 0.3 % (0-1); Eosinophil# 0.31 X10^3/uL; Eosinophils% 3.3 % (0-5); Hematocrit 41.1 % (40-54); Lymphocyte # 0.92 X10^3/ul (0.83-4.51); Lymphocyte % 9.8 % (19-41); Mean Corp Hgb Conc 31.6 g/dL (32-36); Mean Corpuscular Hgb 29.8 pg (27.0-32.0); Mean Corpuscular Volume 94.3 fL (80-94); Mean Platelet Vol. 10.1 fl (6.2-12.0); Monocyte# 0.58 X10^3/uL; Monocyte% 6.2 % (0-10); NRBC Flagged by Analyzer 0 % (0-5); Neutrophil # 7.49 X10^3/uL (2.7-7.7); Platelet Count 440 K/mm3 (150-450); RBC Distribution Width CV 16.2 % (11.6-14.6); RBC Distribution Width SD 55.4 fl (35.1-43.9); Red Blood Count 4.36 M/mm3 (4.6-6.2); White Blood Count 9.4 K/mm3 (4.4-11.0)
[2021-03-17 08:30] LABS: Prothrombin Time (Protime)PT. 12.3 SECONDS (11.7-14.9)
[2021-03-17 08:31] LABS: Partial Thromboplast Time 30.2 Seconds (24.1-36.2)
[2021-03-17] MEDS: Citalopram 40 MG TABLET PO (09:12)
[2021-03-17] MEDS: Calcium Carbonate 500 MG Tablet PO ×2 (09:12→17:49)
[2021-03-17] MEDS: Potassium Chloride Oral Tablet 20 MEQ PO ×2 (09:12→21:07)
[2021-03-17] MEDS: Pantoprazole Sodium 40 MG Tablet PO (09:12)
[2021-03-17] MEDS: Furosemide 40 MG Tablet PO ×2 (09:12→17:50)
[2021-03-17 11:56] LABS: Bedside Glucose 141 mg/dL (70-110)
--- NOTE | 2021-03-17 12:44 | PN.HOSP_ITS ---
Documented by User: Brynn Reid NP, [employer] 03/17/21 12:48 Subjective Subjective Patient seen and examined. Denies significant shortness of breath. Remains on 2 L nasal cannula. To undergo thoracentesis at 2 PM. Denies fever, chills. Denies other symptoms or complaints. Objective Data Objective Data Vital Signs: Vital Signs Temp Pulse Resp BP Pulse Ox 98.0 F 76 12 109/62 94 03/17/21 09:03/17/21 09:03/17/21 09:03/17/21 09:03/17/21 11:50 Oxygen Flow Rate (L/min) 2 Oxygen Delivery Method Nasal Cannula Weight: 139 lb 1.787 oz Body Mass Index (BMI) 24.5 Intake & Output: Intake and Output for Last 24 Hours 03/15/21 03/16/21 03/17/21 23:59 23:59 23:59 Intake Total 700 / 940 960 / 960 Output Total 475 / 475 3350 / 3350 Balance 700 / 940 485 / 485 -3350 / -3350 Lab / Micro Data Result Diagrams: 03/17/21 06:52 03/16/21 05:15 Labs: Laboratory Results - last 24 hr 03/16/21 16:45: POC Glucose 137 H 03/16/21 22:21: POC Glucose 139 H 03/17/21 06:29: POC Glucose 99 03/17/21 06:52: PT 12.3, INR 1.0, APTT 30.2 03/17/21 06:52: WBC 9.4, RBC 4.36 L, Hgb 13.0, Hct 41.1, MCV 94.3 H, MCH 29.8, MCHC 31.6 L, RDW Std Deviation 55.4 H, RDW Coeff of Sophie 16.2 H, Plt Count 440, MPV 10.1, Immature Gran % (Auto) 0.400, Neut % (Auto) 80.0 H, Lymph % (Auto) 9.8 L, [place] % (Auto) 6.2, Eos % (Auto) 3.3, Baso % (Auto) 0.3, Absolute Neuts (auto) 7.5, Absolute Lymphs (auto) 0.92, Nucleated RBC % 0 03/17/21 11:53: POC Glucose 141 H Micro: Microbiology 03/14/21 19:15 Interface Orders Respiratory Panel (PCR) - Final 03/14/21 13:25 Nasal Secretion SARS-CoV-2 Antigen (Rapid) - Final Physical Exam Const alert, oriented x3 and no apparent distress Orientation / Consciousness: awake, oriented to person, oriented to place and oriented to time HEENT normocephalic and moist oral mucous membranes Eyes PERRL, EOMs intact bilaterally and conjunctivae normal Neck no lymphadenopathy Resp clear to auscultation bilaterally Auscultation: diminished lung sounds Cardio regular rate, regular rhythm and no murmurs Peripheral Pulses: pulses 2+ throughout GI normal to inspection, nondistended, normoactive bowel sounds, non-tender and non-distended Extremity normal to inspection Skin no rashes or lesions noted Lesions: no lesions Rashes: no rashes Trauma: no lacerations or abrasions Neuro CN's II-XII intact bilaterally, no focal motor deficits, no sensory deficits noted and deep tendon reflexes 2+ bilaterally Psych mental status grossly normal and affect normal Assessment & Plan Assessment/Plan (1) Bilateral pleural effusion: PLAN: 1. Acute hypoxic respiratory insufficiency secondary to bilateral pleural effusions as a result of acute heart failure with preserved ejection fraction, complicated by history of non-small cell lung cancer-continue supplement oxygen to maintain O2 at above 90%. Wean oxygen as tolerated. Home oxygen testing prior to discharge. 2. Bilateral pleural effusions-suspect related to heart failure vs recurrence of malignancy. Thoracentesis diagnostic and therapeutic ordered for with labs ordered for this afternoon. 3. Acute heart failure with preserved ejection fraction-cardiology consulted. Echocardiogram January 2021 at [facility] with EF 57%, small pericardial effusion. Repeat echocardiogram demonstrates an EF of 50 to 55%, small pericardial effusion. DC further IV Lasix due to borderline low blood pressure, transition to oral Lasix with hold parameters. Strict I&O. Daily weight. 4. Non-small cell lung cancer- follows with Dr. Harper. Last treatment 6 months ago. Follow thoracentesis fluid results. 5. Acute kidney injury-resolved. 6. Type 2 diabetes [id number] with sliding scale insulin. 7. Anxiety/depression-on escitalopram, Seroquel. 8. Hyperlipidemia-continue statin. 9. Hypothyroidism-continue Synthroid regimen. 10. Chronic pain syndrome-on fentanyl patch. 11. Chronic COPD-no exacerbation. As needed albuterol aerosol. 12. Former alcohol abuse-in remission. 13. Tobacco dependence-encouraged cessation. 14. GERD-continue PPI. 15. BPH-continue Flomax. 16. History of CVA-on aspirin, statin. 17. Bilateral carotid stenosis-Following with Dr. Braboza, vascular surgery as outpatient. Surgical intervention was not recommended. Previous CTA with greater than 70% stenosis bilaterally. [place] to be over read per vascular medicine. Repeat duplex ultrasound showed less than 50% stenosis bilaterally. DVT prophylaxis-Heparin subcu This patient was seen by Brynn Reid NP-Agustina under the supervision of Dr. Blackburn. Documented by User: Dr. Taurus Blackburn, 03/17/21 20:29 Objective Data Lab / Micro Data Result Diagrams: 03/17/21 06:52 03/16/21 05:15 Charges/Coding Addendum Addendum: Patient was seen and examined independently of Brynn Reid today, he went down for a left thoracentesis today but there was not enough fluid for removal according to radiology. I talked briefly with the patient's oncologist- Dr. Harper-he forwarded the patient's last echocardiogram report which was done this year-patient's EF was normal. Dr. Harper said the patient's last CT did show pleural effusions-the right pleural effusion was very minimal, and the left pleural effusion was more substantial. It appears that this may be a chronic effusion. The other possibility is that the patient has diastolic CHF. On examination he appeared in good health and spirits. Vital signs as documented. Skin warm and dry and without overt rashes. Neck without JVD, neck was supple, trachea midline, thyroid was normal. Lungs clear bilaterally, d ecreased breath sounds were noted at the patient's left lung base. Heart exam notable for regular rhythm, normal sounds and absence of murmurs, rubs or gallops. Abdomen unremarkable and without evidence of organomegaly, masses, or abdominal aortic enlargement. Bowel sounds are present, abdomen is not distended. Extremities nonedematous, no cyanosis was noted, no clubbing was noted. Neuro: Cranial nerves II through XII are grossly intact, no focal motor deficits were noted, sensation to light touch and pinprick intact, motor exam 5/5 throughout. Psych: Patient is alert and oriented x3, he does not appear anxious or depressed, he does not appear agitated. Patient appears stable at this time, at the time of my dictation this evening, patient appears to be on room air and is saturating at 93%. We will continue oral diuretics at this time, patient's blood pressure appears to be stable. P atient will be reevaluated tomorrow. I have reviewed Brynn Reid's progress note including her medical assessment and plan of care and endorse it. Visit Charges Inpatient E&M: 72814 Subs Hosp L2
--- NOTE | 2021-03-17 13:30 | US_ITS ---
STUDY: SUPERFICIAL ULTRASOUND - CHEST REASON FOR EXAM: Male, 56 years old. Bilateral Pleural effusions -- Left TECHNIQUE: A superficial ultrasound was performed with real-time and static martinez-scale imaging. COMPARISON: None. FINDINGS: Assessment of the pleural spaces was obtained. Small bilateral pleural effusions slightly more prominent on the left side. Not large enough for safe thoracentesis. US/Chest IMPRESSION: Not enough fluid for safe thoracentesis. Electronically Signed: Baljinder Olivo MD at 15:14 EDT , Service support ,
[2021-03-17] MEDS: Acetaminophen 325 MG Tablet 650 MG PO (13:59)
[2021-03-17] MEDS: Tamsulosin HCl 0.4 MG Capsule PO (17:49)
[2021-03-17] MEDS: Aspirin 81 MG TAB.CHEW PO (17:49)
[2021-03-17 17:50] LABS: Bedside Glucose 133 mg/dL (70-110)
[2021-03-17] MEDS: fentaNYL 25 MCG Patch TD (18:15)
[2021-03-17] MEDS: Heparin Injection (Vial) 5,000 UNIT/ML VIAL 5000 UNIT SC (21:07)
[2021-03-17] MEDS: Atorvastatin Calcium 40 MG Tablet PO (21:07)
[2021-03-17] MEDS: Nortriptyline 25 MG Capsule 50 MG PO (21:08)
[2021-03-17] MEDS: QUEtiapine 100 MG Tablet 300 MG PO (21:08)
[2021-03-17] MEDS: MELATONIN 3 MG TABLET PO (21:08)
[2021-03-17 21:30] LABS: Bedside Glucose 109 mg/dL (70-110)
[2021-03-18] VITALS (9 sets, daily range): BP systolic 98–103; BP diastolic 68–72; PULSE 89–93; RESP 14–20; TEMP 36.7–36.8; O2SAT 84–96
[2021-03-18 06:08] LABS: Absolute Lymphocyte Count 0.95 X10^3/uL (0.83-4.51); Absolute Neutrophil Count 6.2 X10^3/uL (2.0-7.7); Basophil# 0.04 X10^3/uL; Basophil% 0.5 % (0-1); Eosinophil# 0.38 X10^3/uL; Eosinophils% 4.7 % (0-5); Hematocrit 44.3 % (40-54); Hemoglobin 13.9 g/dL (13.0-16.5); Lymphocyte # 0.95 X10^3/ul (0.83-4.51); Lymphocyte % 11.6 % (19-41); Mean Corp Hgb Conc 31.4 g/dL (32-36); Mean Corpuscular Hgb 29.3 pg (27.0-32.0); Mean Corpuscular Volume 93.3 fL (80-94); Mean Platelet Vol. 9.2 fl (6.2-12.0); Monocyte# 0.55 X10^3/uL; Monocyte% 6.7 % (0-10); NRBC Flagged by Analyzer 0 % (0-5); Neutrophil # 6.21 X10^3/uL (2.7-7.7); Platelet Count 460 K/mm3 (150-450); RBC Distribution Width SD 54.6 fl (35.1-43.9); Red Blood Count 4.75 M/mm3 (4.6-6.2); White Blood Count 8.2 K/mm3 (4.4-11.0)
[2021-03-18] MEDS: Levothyroxine 75 MCG Tablet PO (06:15)
[2021-03-18] MEDS: Magnesium Chloride 64 MG Delay Rel.Tablet PO (06:15)
[2021-03-18 06:20] LABS: Bedside Glucose 116 mg/dL (70-110)
[2021-03-18 06:36] LABS: Anion Gap 4 (5-15); BUN 31 mg/dL (7-18); BUN/Creat Ratio 19.1 RATIO (10-20); Calcium,Total 9.3 mg/dL (8.5-10.1); Chloride 94 mmol/L (98-107); Creatinine, Serum 1.62 mg/dL (0.70-1.30); EST Glomerular Filtration Rate 47 mL/min (>60); Est Glom Filt Rate - Afr Amer 57 mL/min (>60); Estimated Creatinine Clearance 44.85 ml/min; Glucose 117 mg/dL (74-106); Potassium 4.5 mmol/L (3.5-5.1); Sodium Level 134 mmol/L (136-145)
[2021-03-18] MEDS: Ipratropium/Albuterol Sulfate 3 ML AMPUL.NEB INHALATION (06:57)
[2021-03-18] MEDS: Citalopram 40 MG TABLET PO (09:18)
[2021-03-18] MEDS: Calcium Carbonate 500 MG Tablet PO (09:18)
[2021-03-18] MEDS: Pantoprazole Sodium 40 MG Tablet PO (09:18)
[2021-03-18] MEDS: Potassium Chloride Oral Tablet 20 MEQ PO (09:18)
[2021-03-18] MEDS: Heparin Injection (Vial) 5,000 UNIT/ML VIAL 5000 UNIT SC (09:18)
[2021-03-18] MEDS: Furosemide 40 MG Tablet PO (09:19)
[2021-03-18] MEDS: Aspirin 81 MG TAB.CHEW PO (09:22)
--- NOTE | 2021-03-18 10:20 | DCINST_ITS ---
Discharge Instructions Diet Discharge Diet: Low fat / Low cholesterol, 8 Cup Fluid Restriction, 2000 mg Sodium Diet and Carb Control Diet Activity Discharge Activity: Return to Normal Activity Dressing / Incision Call your doctor if you observe: Shortness of breath, Dizziness and Chest pain Follow Up Care Test Results: Test results from this visit will be discussed in further detail at your follow-up appointment, if applicable. Discharge Plan Admission Admit Date/Time: 03/14/21 17:03 Primary Reason for Your Visit: Heart failure Attending Provider: Lauryn Angulo Primary Care Provider: Zurdo Esparza Consulting Providers: Angeline Manjarrez Discharge Orders/Prescriptions Prescriptions: New furosemide 40 mg Tablet 40 mg PO DAILY Qty: 30 RF: 0 Continued potassium chloride 20 mEq tablet,ER particles/crystals 20 meq PO BID RF: 0 midodrine 2.5 mg tablet 2.5 mg PO TID PRN (Reason: do not take 4 hours before bedtime) RF: 0 citalopram 40 MG tablet 40 mg PO DAILY RF: 0 levothyroxine 75 MCG tablet 75 mcg PO DAILY RF: 0 omeprazole 40 MG capsule,delayed release(DR/EC) 40 mg PO DAILY RF: 0 ergocalciferol (vitamin D2) 50,000 UNIT capsule 50,000 unit PO FR RF: 0 sitagliptin 100 MG tablet 100 mg PO DAILY RF: 0 melatonin 3 MG capsule 3 mg PO QHS RF: 0 atorvastatin 40 MG tablet 40 mg PO DAILY RF: 0 quetiapine 300 MG tablet 300 mg PO QHS RF: 0 tamsulosin 0.4 MG capsule 0.4 mg PO DAILY@1730 RF: 0 calcium carbonate 500 MG tablet,chewable 500 mg PO BIDCM RF: 0 aspirin 81 MG tablet,chewable 81 mg PO DAILY@0800 RF: 0 magnesium chloride 71.5 MG tablet,delayed release (DR/EC) 71.5 mg PO Q8H RF: 0 fentanyl 25 mcg/hr patch 72 hour 25 mcg transdermal .Q72H RF: 0 nortriptyline 50 mg capsule 50 mg PO QHS RF: 0 Referrals / Follow Up: Justus Harper DO [STAFF PHYSICIAN] - See Referral Note (As scheduled next week) Zurdo Esparza MD [Primary Care Provider] - In 1 Week Norman Cho NP, [employer] [Nurse Practitioner] - Within 2 Weeks Disposition Disposition (needs filled in before D/C Order can be placed): Home Health Service
--- NOTE | 2021-03-18 10:25 | CASEMGMT ---
Addendum entered by Brittni Villavicencio 03/18/21 11:27: Spoke with Michel at [facility] and she states referral received and someone would be over with e-tank for pt discharge. Esau LEONG CM Addendum entered by Brittni Villavicencio 03/18/21 10:51: TRAN order w/ clinicals faxed to [facility] and call to [facility] to notify of TRAN HHC and discharge today, voices understanding. Call to palliative to notify of pt discharge, voices understanding. Esau LEONG CM Original Note: Pt qualifies for 2L nc continuous home oxygen and after provided with list of local in-network DME companies, pt states would like [facility] for home oxygen. Pt states no further concerns/needs with going home at time of discharge. Referral faxed to [facility] and call to notify of referral and pt discharge. Esau LEONG CM
--- NOTE | 2021-03-18 10:47 | DS.PCM_ITS ---
Documented by User: Brynn Reid NP, CUSTOMER SUPPORT AGENT-C 03/18/21 10:53 Providers Date of Admission: 03/14/21 Date of Discharge: 03/18/21 Primary Care Physician: Dr. Zurdo Esparza MD Consultations 03/14/21 17:32 Consult: Cardiology Routine Consulting Provider: Angeline Manjarrez Reason for Consult: Pericardial effusion, ? moderate, was recently reported as small EMERGENT Consult: No MD Notified: Yes Date Notified: 03/14/21 Time Notified: 17:02 Method of Notification: discussed Reason For Visit: BILATERAL PLEURAL EFFUSION, PERICARDIAL EFFUSION, Diagnosis Discharge Diagnosis (1) Bilateral pleural effusion: Status: Acute Code(s): J90 - Pleural effusion, not elsewhere classified Medications at Discharge Home Medications citalopram 40 mg PO DAILY 12/15/16 levothyroxine 75 mcg PO DAILY 10/09/19 omeprazole 40 mg PO DAILY 10/09/19 ergocalciferol (vitamin D2) 50,000 unit PO FR 11/23/19 sitagliptin 100 mg PO DAILY 08/14/20 melatonin 3 mg PO QHS 10/28/20 potassium chloride 20 mEq tablet,extended release(part/cryst) 20 meq PO BID tab 11/27/20 aspirin 81 mg PO DAILY@0800 12/02/20 atorvastatin 40 mg PO DAILY 12/02/20 calcium carbonate 500 mg PO BIDCM 12/02/20 magnesium chloride 71.5 mg PO Q8H 12/02/20 quetiapine 300 mg PO QHS 12/02/20 tamsulosin 0.4 mg PO DAILY@1730 12/02/20 midodrine 2.5 mg tablet 2.5 mg PO TID PRN tab 01/08/21 fentanyl 25 mcg TRANSDERMAL .Q72H 03/14/21 nortriptyline 50 mg PO QHS 03/14/21 furosemide 40 mg PO DAILY #30 tab 03/18/21 Hospital Course Operations None Procedures 2-D Echocardiogram Summary of Care Provided Minutes Spent on Discharge: 35 Hospital Course: Patient is a 56-year-old male admitted 03/14/2021 due to shortness of breath. 1. Acute hypoxic respiratory insufficiency secondary to bilateral pleural effusions as a result of acute heart failure with preserved ejection fraction- patient documented to be 86% on room air, he will require supplemental oxygen at discharge. He is ambulatory in the home. Continue supplement oxygen to maintain O2 at above 90%. 2. Bilateral pleural effusions-suspect related to heart failure. Thoracentesis diagnostic and therapeutic ordered however there is not enough fluid to undergo thoracentesis. Pleural effusions improved with diuresis. 3. Acute heart failure with preserved ejection fraction-cardiology consulted during admission. Echocardiogram January 2021 at [facility] with EF 57%, small pericardial effusion. Repeat echocardiogram demonstrates an EF of 50 to 55%, small pericardial effusion. DC further IV Lasix due to borderline low blood pressure and increasing creatinine, transition to oral Lasix 40 mg daily at discharge. Follow-up with cardiology in 2 weeks. 4. Non-small cell lung cancer- follows with Dr. Harper. Patient reports last treatments about 1 year ago. Has upcoming follow-up with oncology next week. 5. Acute kidney injury-initially improved however creatinine again increased with diuresis. Oral Lasix reduced, will need repeat BMP in 1 week. 6. Type 2 diabetes mellitus-continue home oral regimen. 7. Anxiety/depression-on escitalopram, Seroquel. 8. Hyperlipidemia-continue statin. 9. Hypothyroidism-continue Synthroid regimen. 10. Chronic pain syndrome-on fentanyl patch. 11. Chronic COPD-no exacerbation. 12. Former alcohol abuse-in remission. 13. Tobacco dependence-encouraged cessation. 14. GERD-continue PPI. 15. BPH-continue Flomax. 16. History of CVA-on aspirin, statin. 17. Bilateral carotid stenosis-Following with Dr. Barboza, vascular surgery as outpatient. Surgical intervention was not recommended. Previous CTA with greater than 70% stenosis bilaterally. [place] to be over read per vascular medicine. Repeat duplex ultrasound showed less than 50% stenosis bilaterally. Physical Exam Const alert, oriented x3 and no apparent distress Orientation / Consciousness: awake, oriented to person, oriented to place and oriented to time HEENT normocephalic and moist oral mucous membranes Eyes PERRL, EOMs intact bilaterally and conjunctivae normal Neck no lymphadenopathy Resp clear to auscultation bilaterally Auscultation: diminished lung sounds Cardio regular rate, regular rhythm and no murmurs Peripheral Pulses: pulses 2+ throughout GI normal to inspection, nondistended, normoactive bowel sounds, non-tender and non-distended Extremity normal to inspection Skin no rashes or lesions noted Lesions: no lesions Rashes: no rashes Trauma: no lacerations or abrasions Neuro CN's II-XII intact bilaterally, no focal motor deficits, no sensory deficits noted and deep tendon reflexes 2+ bilaterally Psych mental status grossly normal and affect normal Patient seen and examined prior to discharge. Physical assessment as noted above. Patient is stable for discharge with follow up recommendations as noted above. This patient was seen by ANGEL Johnson under the supervision of Dr. Angulo. Weight / BMI Weight Weight: 143 lb 1.28 oz Body Mass Index (BMI) 24.5 ABG / Lab / Microbiology Data Result Diagrams: 03/18/21 05:50 03/18/21 05:50 Laboratory: Laboratory Results - last 24 hr 03/17/21 11:53: POC Glucose 141 H 03/17/21 17:47: POC Glucose 133 H 03/17/21 21:10: POC Glucose 109 03/18/21 05:50: WBC 8.2, RBC 4.75, Hgb 13.9, Hct 44.3, MCV 93.3, MCH 29.3, MCHC 31.4 L, RDW Std Deviation 54.6 H, RDW Coeff of Sophie 16.0 H, Plt Count 460 H, MPV 9.2, Immature Gran % (Auto) 0.500, Neut % (Auto) 76.0 H, Lymph % (Auto) 11.6 L, [place] % (Auto) 6.7, Eos % (Auto) 4.7, Baso % (Auto) 0.5, Absolute Neuts (auto) 6.2, Absolute Lymphs (auto) 0.95, Nucleated RBC % 0 03/18/21 05:50: Sodium 134 L, Potassium 4.5, Chloride 94 L, Carbon Dioxide 36.0 H, Anion Gap 4 L, BUN 31 H, Creatinine 1.62 H, Estim Creat Clear Calc 44.85, Est GFR (MDRD) Af Amer 57 L, Est GFR (MDRD) Non-Af 47 L, BUN/Creatinine Ratio 19.1, Glucose 117 H, Calcium 9.3 03/18/21 06:15: POC Glucose 116 H Microbiology: Microbiology 03/14/21 19:15 Interface Orders Respiratory Panel (PCR) - Final 03/14/21 13:25 Nasal Secretion SARS-CoV-2 Antigen (Rapid) - Final Radiography Diagnostic Testing: Radiology Impression Chest Ultrasound 03/17/21 13:30 IMPRESSION: Not enough fluid for safe thoracentesis. Electronically Signed: Baljinder Olivo MD at 15:14 EDT , Service support , D/C Instructions Discharge Diet: Low fat / Low cholesterol, 8 Cup Fluid Restriction, 2000 mg Sodium Diet and Carb Control Diet Call your doctor if you observe: Shortness of breath, Dizziness and Chest pain Meaningful Use Info Meaningful Use Diagnoses (Choose all that apply): CHF CHF NORBERT/ARB ordered at discharge?: No Reason NORBERT/ARB not ordered?: Not indicated Documented LVEF (%): 55 Discharge Plan Admission Admit Date/Time: 03/14/21 17:03 Primary Reason for Your Visit: Heart failure Attending Provider: Lauryn Angulo Primary Care Provider: Zurdo Esparza Consulting Providers: Angeline Manjarrez Discharge Orders/Prescriptions Prescriptions: New furosemide 40 mg Tablet 40 mg PO DAILY Qty: 30 RF: 0 Continued potassium chloride 20 mEq tablet,ER particles/crystals 20 meq PO BID RF: 0 midodrine 2.5 mg tablet 2.5 mg PO TID PRN (Reason: Blood Pressure) RF: 0 citalopram 40 MG tablet 40 mg PO DAILY RF: 0 levothyroxine 75 MCG tablet 75 mcg PO DAILY RF: 0 omeprazole 40 MG capsule,delayed release(DR/EC) 40 mg PO DAILY RF: 0 ergocalciferol (vitamin D2) 50,000 UNIT capsule 50,000 unit PO FR RF: 0 sitagliptin 100 MG tablet 100 mg PO DAILY RF: 0 melatonin 3 MG capsule 3 mg PO QHS RF: 0 atorvastatin 40 MG tablet 40 mg PO DAILY RF: 0 quetiapine 300 MG tablet 300 mg PO QHS RF: 0 tamsulosin 0.4 MG capsule 0.4 mg PO DAILY@1730 RF: 0 calcium carbonate 500 MG tablet,chewable 500 mg PO BIDCM RF: 0 aspirin 81 MG tablet,chewable 81 mg PO DAILY@0800 RF: 0 magnesium chloride 71.5 MG tablet,delayed release (DR/EC) 71.5 mg PO Q8H RF: 0 fentanyl 25 mcg/hr patch 72 hour 25 mcg transdermal .Q72H RF: 0 nortriptyline 50 mg capsule 50 mg PO QHS RF: 0 Referrals / Follow Up: Justus Harper DO [STAFF PHYSICIAN] - See Referral Note (As scheduled next week) Zurdo Esparza MD [Primary Care Provider] - In 1 Week Norman Cho NP, CUSTOMER SUPPORT AGENT-C [Nurse Practitioner] - 04/03/21 1:00 pm Disposition Disposition (needs filled in before D/C Order can be placed): Home Health Service Documented by User: Dr. Lauryn Angulo MD 03/20/21 07:23 Providers Date of Admission: 03/14/21 Date of Discharge: 03/18/21 Reason For Visit: BILATERAL PLEURAL EFFUSION, PERICARDIAL EFFUSION, Medications at Discharge Home Medications citalopram 40 mg PO DAILY 12/15/16 levothyroxine 75 mcg PO DAILY 10/09/19 omeprazole 40 mg PO DAILY 10/09/19 ergocalciferol (vitamin D2) 50,000 unit PO FR 11/23/19 sitagliptin 100 mg PO DAILY 08/14/20 melatonin 3 mg PO QHS 10/28/20 potassium chloride 20 mEq tablet,extended release(part/cryst) 20 meq PO BID tab 11/27/20 aspirin 81 mg PO DAILY@0800 12/02/20 atorvastatin 40 mg PO DAILY 12/02/20 calcium carbonate 500 mg PO BIDCM 12/02/20 magnesium chloride 71.5 mg PO Q8H 12/02/20 quetiapine 300 mg PO QHS 12/02/20 tamsulosin 0.4 mg PO DAILY@1730 12/02/20 midodrine 2.5 mg tablet 2.5 mg PO TID PRN tab 01/08/21 fentanyl 25 mcg TRANSDERMAL .Q72H 03/14/21 nortriptyline 50 mg PO QHS 03/14/21 furosemide 40 mg PO DAILY #30 tab 03/18/21 ABG / Lab / Microbiology Data Result Diagrams: 03/18/21 05:50 03/18/21 05:50 Discharge Plan Admission Admit Date/Time: 03/14/21 17:03 Primary Reason for Your Visit: Heart failure Attending Provider: Lauryn Angulo Primary Care Provider: Zurdo Esparza Consulting Providers: Angeline Manjarrez Discharge Orders/Prescriptions Prescriptions: New furosemide 40 mg Tablet 40 mg PO DAILY Qty: 30 RF: 0 Continued potassium chloride 20 mEq tablet,ER particles/crystals 20 meq PO BID RF: 0 midodrine 2.5 mg tablet 2.5 mg PO TID PRN (Reason: Blood Pressure) RF: 0 citalopram 40 MG tablet 40 mg PO DAILY RF: 0 levothyroxine 75 MCG tablet 75 mcg PO DAILY RF: 0 omeprazole 40 MG capsule,delayed release(DR/EC) 40 mg PO DAILY RF: 0 ergocalciferol (vitamin D2) 50,000 UNIT capsule 50,000 unit PO FR RF: 0 sitagliptin 100 MG tablet 100 mg PO DAILY RF: 0 melatonin 3 MG capsule 3 mg PO QHS RF: 0 atorvastatin 40 MG tablet 40 mg PO DAILY RF: 0 quetiapine 300 MG tablet 300 mg PO QHS RF: 0 tamsulosin 0.4 MG capsule 0.4 mg PO DAILY@1730 RF: 0 calcium carbonate 500 MG tablet,chewable 500 mg PO BIDCM RF: 0 aspirin 81 MG tablet,chewable 81 mg PO DAILY@0800 RF: 0 magnesium chloride 71.5 MG tablet,delayed release (DR/EC) 71.5 mg PO Q8H RF: 0 fentanyl 25 mcg/hr patch 72 hour 25 mcg transdermal .Q72H RF: 0 nortriptyline 50 mg capsule 50 mg PO QHS RF: 0 Referrals / Follow Up: Justus Harper DO [STAFF PHYSICIAN] - See Referral Note (As scheduled next week) Zurdo Esparza MD [Primary Care Provider] - In 1 Week Norman Cho NP, CUSTOMER SUPPORT AGENT-C [Nurse Practitioner] - 04/03/21 1:00 pm Disposition Disposition (needs filled in before D/C Order can be placed): Home Health Service Charges/Coding Addendum Addendum: This patient was seen in conjunction with Brynn Reid. I have independently interviewed and examined the patient and reviewed pertinent historical, laboratory, and other data. I have reviewed her note and concur with her documentation 56-year-old male who was admitted with shortness of breath and managed as acute heart failure with preserved EF, bilateral pleural effusions with hypoxia. Patient's 2D echo done in January 2021 [facility] [place] showed EF of 57%, small pericardial effusion. Repeat 2D echo here demonstrates EF of 50 to 55%.Patient improved on Lasix treatment. Attempts at thoracocentesis revealed not enough pleural fluid. He had elevation in his creatinine. Lasix dose was adjusted. Patient did require oxygen at discharge. He will follow-up with his primary care doctor within 1 week On the day of discharge, patient was seen and examined. Physical Exam: Gen: Fairly comfortable, not pale, not jaundiced, on 1-2 L of oxygen CVS:HS I +II, regular, no murmurs RESP: Diminished at lung bases GI: BS present and normal, soft, nontender, no palpable organs EXT: Bilateral pedal edema +1 Visit Charges Inpatient E&M: 24987 Disch Hosp
[2021-03-18 12:21] LABS: Bedside Glucose 119 mg/dL (70-110)
--- NOTE | 2021-03-18 13:45 | PHA.DC.MR ---
Pharmacy Service has performed discharge medication reconciliation for this patient. The patient's discharge medication list was reviewed for discrepancies and discrepancies were resolved. Medication education paper prepared, but patient was discharged before I was able to genetic counselor. Home Medications citalopram 40 mg PO DAILY 12/15/16 levothyroxine 75 mcg PO DAILY 10/09/19 omeprazole 40 mg PO DAILY 10/09/19 ergocalciferol (vitamin D2) 50,000 unit PO FR 11/23/19 sitagliptin 100 mg PO DAILY 08/14/20 melatonin 3 mg PO QHS 10/28/20 potassium chloride 20 mEq tablet,extended release(part/cryst) 20 meq PO BID tab 11/27/20 aspirin 81 mg PO DAILY@0800 12/02/20 atorvastatin 40 mg PO DAILY 12/02/20 calcium carbonate 500 mg PO BIDCM 12/02/20 magnesium chloride 71.5 mg PO Q8H 12/02/20 quetiapine 300 mg PO QHS 12/02/20 tamsulosin 0.4 mg PO DAILY@1730 12/02/20 midodrine 2.5 mg tablet 2.5 mg PO TID PRN tab 01/08/21 fentanyl 25 mcg TRANSDERMAL .Q72H 03/14/21 nortriptyline 50 mg PO QHS 03/14/21 furosemide 40 mg PO DAILY #30 tab 03/18/21
--- NOTE | 2021-03-19 14:26 | CASEMGMT ---
DANG CM Discharge Follow-Up Phone Call. Lace: 13 Strata: 3 Discharge Date: 03/18/21 Adm Dx: Hypoxia, BL Pl/pericardial effusions, ? CHF vs malignant effusions Attempted discharge f/u phone call. No answer. Non-identifying VM received. Non-descript VM left requesting return call if there are any questions or concerns. Phone number provided. Rufina CHAPMAN RN CM
== END 2021-03-18 13:46 | disposition home health service (06) | DRG 291 ==
LOC: ED 14:09 → PCU 16:51
PROVIDERS: Internal Medicine; Nurse Practitioner Family; Admitting Provider Family Medicine; Emergency Provider Emergency Medicine; PCP Internal Medicine; Visit Provider Internal Medicine
DX: I11.0 Hypertensive heart disease with heart failure (principal); I50.31 Acute diastolic (congestive) heart failure; C34.92 Malignant neoplasm of unspecified part of left bronchus or lung; N17.9 Acute kidney failure, unspecified; I31.3 Pericardial effusion (noninflammatory); D64.9 Anemia, unspecified; B18.2 Chronic viral hepatitis C; R09.02 Hypoxemia; D69.6 Thrombocytopenia, unspecified; F10.11 Alcohol abuse, in remission; K21.9 Gastro-esophageal reflux disease without esophagitis; N40.0 Benign prostatic hyperplasia without lower urinary tract symptoms; F32.9 Major depressive disorder, single episode, unspecified; E03.9 Hypothyroidism, unspecified; E11.42 Type 2 diabetes mellitus with diabetic polyneuropathy; E55.9 Vitamin D deficiency, unspecified; E78.5 Hyperlipidemia, unspecified; F41.9 Anxiety disorder, unspecified; G89.4 Chronic pain syndrome; I25.10 Atherosclerotic heart disease of native coronary artery without angina pectoris; I65.23 Occlusion and stenosis of bilateral carotid arteries; J44.9 Chronic obstructive pulmonary disease, unspecified; Z86.73 Personal history of transient ischemic attack (TIA), and cerebral infarction without residual deficits; Z95.1 Presence of aortocoronary bypass graft; Z79.82 Long term (current) use of aspirin; Z79.899 Other long term (current) drug therapy; F17.210 Nicotine dependence, cigarettes, uncomplicated
CPT/HCPCS: 36415; 71045; 71275; 76604; 80048; 80053; 82962; 83615; 83735; 83880; 84100; 84156; 84439; 84443; 84484; 85025; 85379; 85610; 85730; 86140; 87426; 87633; 93005; 93306; 94640; 97110; 97161; 97166; 97530; 97535; 99251; 99285; J7040; Q9967; A4216; G0463; J1940

== ENCOUNTER 2021-05-15 11:03 | Inpatient (IN) | payer MEDICARE, MEDICAID, SELFPAY ==
[2021-05-15] VITALS (13 sets, daily range): BP systolic 102–123; BP diastolic 62–91; PULSE 77–97; RESP 13–20; TEMP 36.6–36.8; O2SAT 3–98; BMI 24.3
--- NOTE | 2021-05-15 11:16 | RAD_ITS ---
STUDY: X-RAY - PELVIS AND RIGHT HIP REASON FOR EXAM: Male, 56 years old. Pain following a fall. TECHNIQUE: 3 views of the pelvis and hip. COMPARISON: None. FINDINGS: There is a non-specific bowel gas pattern. There are atherosclerotic vascular calcifications of the pelvic arteries. There are multiple calcified phleboliths. Normal bilateral iliac wings, sacroiliac joints and visualized sacrum. Normal bilateral superior and inferior pubic rami. There are degenerative changes of the pubic symphysis with articular narrowing and sclerosis. Normal bilateral ischial tuberosities. The patient is status post right total hip replacement. There is good alignment. Mild degree of joint space and of the left hip joint. RAD/HIP, UNI W/ Pelvis 2-3 Views IMPRESSION: Status post right hip replacement. No fracture or dislocation. Electronically Signed: Baljinder Olivo MD at 11:52 EST , Service support ,
--- NOTE | 2021-05-15 11:16 | RAD_ITS ---
STUDY: X-RAY CHEST REASON FOR EXAM: Male, 56 years old. Stroke TECHNIQUE: Single AP portable view of the chest. COMPARISON: Comparison is made with prior study dated 03/14/2021. FINDINGS: EKG electrodes are seen. Persistent left apical soft tissue mass with retraction of the left hilum. Blunting of the left costophrenic angle. This has improved since prior study. The right lung is clear. Normal size heart. Normal mediastinum and [place]. Normal visualized pulmonary arteries. Normal visualized aortic arch and descending thoracic aorta. There are diffuse degenerative changes of the visualized thoracic spine. Normal visualized ribs, clavicles, and shoulders. There is no demonstrated abnormality of the visualized soft tissue structures of the upper abdomen. RAD/Chest 1 View (Portable) IMPRESSION: Stable left apical soft tissue density with retraction of the left hilum. Blunting of the left costophrenic angle. Electronically Signed: Baljinder Olivo MD at 11:54 EST , Service support ,
--- NOTE | 2021-05-15 11:16 | EKG12_ITS ---
Test Reason : DIZZINESS Blood Pressure : / mmHG Vent. Rate : 092 BPM Atrial Rate : 092 BPM P-R Int : 170 ms QRS Dur : 088 ms QT Int : 378 ms P-R-T Axes : 055 087 041 degrees QTc Int : 467 ms Normal sinus rhythm T wave abnormality, consider anterior ischemia Abnormal ECG Confirmed by ARTUR BINGHAM, LELA ([id number]), video news editor REED FLORES ([id number]) on 05/16/2021 6:55:49 AM Referred By: RILEY Confirmed By:LELA SIDDIQUI MD
--- NOTE | 2021-05-15 11:45 | ED.VIS.FALL ---
HPI HPI - Fall History of Present Illness Chief Complaint: Fall Detail of Chief Complaint: Fall with right hip pain Informant: patient Narrative Narrative: Patient presents to the emergency department with a fall that he thinks occurred last evening. Patient vaguely remembers rolling out of bed and catching himself with his right arm on the dresser. Patient states that he was able to get himself back into bed. This morning when he woke up he was having severe pain to his right hip and could not bear any weight so he called EMS. EMS noted that patient had low oxygen level of 87%. Patient tells me he was on oxygen several weeks ago for low O2 sats but then was taken off after a week. Patient does not know the etiology of his low oxygen sats. He is a smoker. Patient denies any chest pain. He denies head pain. Denies neck pain. He denies drinking alcohol last night. He denies recent illness. [facility] Medical History Adenocarcinoma of left lung Alcohol abuse Barretts esophagus Carotid stenosis Closed right hip fracture Depression GERD (gastroesophageal reflux disease) History of CVA (cerebrovascular accident) (08/25/19) Hypothyroidism Hypoxia Major depression with psychotic features New onset seizure Non-small cell lung cancer Peripheral neuropathy Vitamin D deficiency Home Medications citalopram 40 mg PO DAILY 12/15/16 [History Last Taken 03/13/21] levothyroxine 75 mcg PO DAILY 10/09/19 [History Last Taken 03/14/21] omeprazole 40 mg PO DAILY 10/09/19 [History Last Taken 03/14/21] ergocalciferol (vitamin D2) 50,000 unit PO FR 11/23/19 [History Last Taken 03/14/21] sitagliptin 100 mg PO DAILY 08/14/20 [History Last Taken 03/13/21] melatonin 3 mg PO QHS 10/28/20 [History Last Taken 03/13/21] aspirin 81 mg PO DAILY@0800 12/02/20 [History Last Taken 03/14/21] atorvastatin 40 mg PO DAILY 12/02/20 [History Last Taken 03/13/21] calcium carbonate 500 mg PO BIDCM 12/02/20 [History Last Taken 03/14/21] magnesium chloride 71.5 mg PO Q8H 12/02/20 [History Last Taken 03/14/21] quetiapine 300 mg PO QHS 12/02/20 [History Last Taken 03/13/21] tamsulosin 0.4 mg PO DAILY@1730 12/02/20 [History Last Taken 03/13/21] midodrine 2.5 mg tablet 2.5 mg PO TID PRN tab 01/08/21 [History Last Taken 03/14/21] fentanyl 25 mcg TRANSDERMAL .Q72H 03/14/21 [History Last Taken 03/11/21] nortriptyline 50 mg PO QHS 03/14/21 [History Last Taken 03/13/21] furosemide 40 mg PO DAILY #30 tab 03/18/21 [Rx Last Taken Unknown] potassium chloride 20 mEq tablet,extended release(part/cryst) 20 meq PO TID tab 04/03/21 [History Last Taken Unknown] Allergy/AdvReac Type Severity Reaction Status Date / Time No Known Allergies Allergy Verified 04/03/21 13:13 Family History Father Heart disease Mother Heart disease CAD, Hx CABG. CAD (coronary artery disease) CAD, Hx CABG Diabetes Surgical History History of hemiarthroplasty of right hip History of liver biopsy History of right hip replacement (~11/2019) Social History household members: none Smoking Status: Current every day smoker tobacco type: cigarettes alcohol intake: former details: Patient stated that he quit drinking 6 months ago except did have 2 beers. substance use type: marijuana ROS ROS ED Constitutional Constitutional ED: Reports systems reviewed and no addt'l complaints, except as documented; Denies body ache(s), change in weight or chills Eyes Eyes: Denies acute decrease in peripheral vision, change in vision, double vision or loss of vision ENT ENT ED: Reports none; Denies ear pain, lip swelling, loss taste/smell, neck pain, otalgia or sore throat Cardiovascular Cardiovascular: Reports none; Denies abdominal pain, chest pain with activity, leg edema, lightheadedness, palpitations, rapid heart rate or syncope Respiratory/Chest Respiratory/Chest: Reports none and dyspnea; Denies change in mental status, dry cough, hemoptysis, shortness of breath at rest or shortness of breath with exertion Gastrointestinal Gastrointestinal: Reports none; Denies abdominal pain, change in stool character, diarrhea, hematemesis, hematochezia, melena, rectal bleeding or vomiting Genitourinary Genitourinary ED: Reports none; Denies abdominal discomfort, anuria, dysuria, genital pain or polyuria Musculoskeletal Musculoskeletal: Reports none and other Details: Right hip pain ; Denies arthralgias, back pain, difficulty walking, extremity pain, muscle weakness or myalgias Integumentary Reports none; Denies abscess or rash Neurologic Neurologic: Reports none; Denies abnormal gait, confusion, focal weakness, frequent falls, headache(s), loss of vision, numbness, paresthesias, radicular pain, vertigo or weakness Psychiatric Psychiatric: Reports systems reviewed and no addt'l complaints, except as documented and none; Denies behavioral changes, confusion, difficulty concentrating, hallucinations, suicidal ideation, tactile hallucinations or visual hallucinations Endocrine Endocrinology: Denies none, cold intolerance, excessive sweating, fatigue or heat intolerance Hematologic/Lymphatic Hematologic/Lymphatic: Reports none; Denies anemia, easy bleeding or easy bruising Allergic/Immunologic Allergic/Immunologic ED: Denies as per HPI, none, lip swelling, mouth swelling, throat swelling, tongue swelling or hives EXAM Physical Exam Const Vital Signs: 05/15/21 11:07 05/15/21 11:08 05/15/21 11:10 Temperature 98.1 F Temperature Source Oral Pulse Rate 93 Respiratory Rate 16 Respiratory Effort Respiratory Pattern Blood Pressure 123/80 H Blood Pressure Mean 94 Pulse Ox 87 89 89 Oxygen Delivery Method Room Air Nasal Cannula Nasal Cannula Oxygen Flow Rate (L/min) 2 3 05/15/21 11:12 05/15/21 11:20 05/15/21 11:57 Temperature Temperature Source Pulse Rate 97 Respiratory Rate 13 Respiratory Effort Normal Non-Labored Respiratory Pattern Normal Blood Pressure Blood Pressure Mean Pulse Ox 3 95 Oxygen Delivery Method Nasal Cannula Nasal Cannula Oxygen Flow Rate (L/min) 92 3 Positive well nourished and well developed General Appearance ED: well developed and NAD HEENT Reports TM's clear and moist mucous membranes normocephalic and atraumatic; Negative for trauma or tenderness Tympanic Membrane ED: Yes TM's clear Eyes PERRL and EOMs intact bilaterally General Eye ED: Negative for pale conjunctiva or scleral icterus Neck no lymphadenopathy, supple and no JVD General: Negative for tenderness Chest Wall inspection of chest normal and palpation of chest normal Chest: Negative for tenderness Resp normal respiratory effort and clear to auscultation bilaterally Effort and Inspection: Negative for respiratory distress or pain with movement Auscultation: wheezes and diminished lung sounds; Negative for rhonchi Cardio regular rate, regular rhythm, S1 normal heart sound, S2 normal heart sound and no murmurs Peripheral Pulses: pulses 2+ throughout GI normal to inspection, nondistended, normoactive bowel sounds, soft to palpation, non-tender, non-distended and no masses Back/Spine no CVA tenderness and no thoracic nor lumbar tenderness Extremity Extremity Narrative: Patient has tenderness palpation over the right hip and proximal femur. There is no ecchymosis or bruising noted. No obvious deformity. He does have some pain with logrolling but is able to flex and extend at the hip. Neurovascular intact distally. General Extremety ED: Negative for edema General Extremity: Negative for edema Neuro oriented x3, CN's II-XII intact bilaterally, no sensory deficits noted and gait normal Sensorium / Orientation: awake, alert, oriented to person, oriented to place and oriented to time Motor Exam: strength 5/5 throughout and strength abnormal Psych mental status grossly normal Skin no rashes or lesions noted and no wounds MDM MDM MDM Narrative Medical decision making narrative: IV line established on arrival. Patient placed on a bus driver/monitor. EKG obtained showed a sinus rhythm with a ventricular rate of [address] changes. On blood work patient noted to have an elevated troponin and acute kidney injury. His D-dimer also was elevated but because of his kidney function will not be able to have a CTA. I did start patient on aspirin and heparin drip. He is not having chest pain and has not been having chest pain. Case will be discussed with hospitalist evaluate for admission there is concern for non-ST elevation MT. Lab Data Attestation: I reviewed the patient's lab results. Labs: Laboratory Results - last 24 hr 05/15/21 05/15/21 05/15/21 12:05 12:05 12:05 WBC 16.5 H RBC 5.23 Hgb 14.8 Hct 46.7 MCV 89.3 MCH 28.3 MCHC 31.7 L RDW Std Deviation 50.8 H RDW Coeff of Sophie 15.6 H Plt Count 397 MPV 10.3 Immature Gran % (Auto) 0.600 Neut % (Auto) 89.4 H Lymph % (Auto) 4.7 L [place] % (Auto) 5.1 Eos % (Auto) 0.0 Baso % (Auto) 0.2 Absolute Neuts (auto) 14.7 H Absolute Lymphs (auto) 0.78 L Nucleated RBC % 0 Differential Comment SCANNED PT 12.4 INR 1.0 APTT 28.7 D-Dimer Quant (PE/DVT) 1.28 H* Sodium 133 L Potassium 4.7 Chloride 93 L Carbon Dioxide 33.0 H Anion Gap 7 BUN 19 H Creatinine 3.08 H Estim Creat Clear Calc 24.44 Est GFR (MDRD) Af Amer 27 L Est GFR (MDRD) Non-Af 22 L BUN/Creatinine Ratio 6.2 L Glucose 146 H Calcium 9.5 Troponin I High Sens 987 H* Radiography Diagnostic Testing: Clinical Impression(s) from Imaging Studies Chest X-Ray 05/15/21 11:16 IMPRESSION: Stable left apical soft tissue density with retraction of the left hilum. Blunting of the left costophrenic angle. Electronically Signed: Baljinder Olivo MD at 11:54 EST , Service support , Hip/Pelvis X-Ray 05/15/21 11:16 IMPRESSION: Status post right hip replacement. No fracture or dislocation. Electronically Signed: Baljinder Olivo MD at 11:52 EST , Service support , 1 view chest x-ray obtained interpreted by myself as soft tissue density to left upper lobe otherwise nothing acute. Radiology in agreement. 4 view x-rays of the right hip and pelvis obtained interpreted by myself as no acute fractures. Patient is noted to have prior right hip replacement and hardware appears to be intact. Radiology in agreement. Discharge Plan Triage Chief Complaint: Fall ED Provider: Caron Phelps Dx/Rx/DC Orders Clinical Impression: Acute kidney injury, Fall, Non-ST elevated myocardial infarction, Contusion of hip, right Prescriptions: No Action midodrine 2.5 mg tablet 2.5 mg PO TID PRN (Reason: Blood Pressure) RF: 0 potassium chloride 20 mEq tablet,ER particles/crystals 20 meq PO TID RF: 0 citalopram 40 MG tablet 40 mg PO DAILY RF: 0 levothyroxine 75 MCG tablet 75 mcg PO DAILY RF: 0 omeprazole 40 MG capsule,delayed release(DR/EC) 40 mg PO DAILY RF: 0 ergocalciferol (vitamin D2) 50,000 UNIT capsule 50,000 unit PO FR RF: 0 sitagliptin 100 MG tablet 100 mg PO DAILY RF: 0 melatonin 3 MG capsule 3 mg PO QHS RF: 0 atorvastatin 40 MG tablet 40 mg PO DAILY RF: 0 quetiapine 300 MG tablet 300 mg PO QHS RF: 0 tamsulosin 0.4 MG capsule 0.4 mg PO DAILY@1730 RF: 0 calcium carbonate 500 MG tablet,chewable 500 mg PO BIDCM RF: 0 aspirin 81 MG tablet,chewable 81 mg PO DAILY@0800 RF: 0 magnesium chloride 71.5 MG tablet,delayed release (DR/EC) 71.5 mg PO Q8H RF: 0 fentanyl 25 mcg/hr patch 72 hour 25 mcg transdermal .Q72H RF: 0 nortriptyline 50 mg capsule 50 mg PO QHS RF: 0 furosemide 40 mg Tablet 40 mg PO DAILY Qty: 30 RF: 0 Primary Care Provider: Zurdo Esparza Referrals: Zurdo Esparza MD [Primary Care Provider] - Disposition Disposition: Acute Care Hospital [facility]
[2021-05-15] MEDS: Ipratropium/Albuterol Sulfate 3 ML AMPUL.NEB INHALATION ×2 (11:54→19:53)
[2021-05-15 12:17] LABS: Absolute Lymphocyte Count 0.78 X10^3/uL (0.83-4.51); Absolute Neutrophil Count 14.7 X10^3/uL (2.0-7.7); Basophil# 0.04 X10^3/uL; Basophil% 0.2 % (0-1); Hematocrit 46.7 % (40-54); Hemoglobin 14.8 g/dL (13.0-16.5); Lymphocyte # 0.78 X10^3/ul (0.83-4.51); Lymphocyte % 4.7 % (19-41); Mean Corp Hgb Conc 31.7 g/dL (32-36); Mean Corpuscular Hgb 28.3 pg (27.0-32.0); Mean Corpuscular Volume 89.3 fL (80-94); Mean Platelet Vol. 10.3 fl (6.2-12.0); Monocyte# 0.84 X10^3/uL; Monocyte% 5.1 % (0-10); NRBC Flagged by Analyzer 0 % (0-5); Neutrophil % 89.4 % (47-70); POSITIVE COUNT YES; Platelet Count 397 K/mm3 (150-450); RBC Distribution Width CV 15.6 % (11.6-14.6); RBC Distribution Width SD 50.8 fl (35.1-43.9); Red Blood Count 5.23 M/mm3 (4.6-6.2); White Blood Count 16.5 K/mm3 (4.4-11.0)
[2021-05-15 12:26] LABS: Prothrombin Time (Protime)PT. 12.4 SECONDS (11.7-14.9)
[2021-05-15 12:27] LABS: Partial Thromboplast Time 28.7 Seconds (24.1-36.2)
[2021-05-15 12:36] LABS: Differential Indicated SCAN CRITERIA MET
[2021-05-15 12:37] LABS: Differential Comment SCANNED
[2021-05-15 12:40] LABS: Anion Gap 7 (5-15); BUN 19 mg/dL (7-18); BUN/Creat Ratio 6.2 RATIO (10-20); Calcium,Total 9.5 mg/dL (8.5-10.1); Chloride 93 mmol/L (98-107); Creatinine, Serum 3.08 mg/dL (0.70-1.30); EST Glomerular Filtration Rate 22 mL/min (>60); Est Glom Filt Rate - Afr Amer 27 mL/min (>60); Estimated Creatinine Clearance 24.44 ml/min; Glucose 146 mg/dL (74-106); Potassium 4.7 mmol/L (3.5-5.1); Sodium Level 133 mmol/L (136-145); Troponin-I HS 987 pg/mL (3.0-78.0)
[2021-05-15 12:44] LABS: D-Dimer Quantitative (DVT/PE) 1.28 FEU/ug/m (0.27-0.49)
[2021-05-15] MEDS: Aspirin 81 MG TAB.CHEW 324 MG PO (13:11)
[2021-05-15] MEDS: HEPARIN/D5w 25,000 UNITS 25,000 UNITS/250 ML IV.SOLN. 0.1 UNITS IV (13:12)
[2021-05-15] MEDS: Heparin Injection (Vial) 5,000 UNIT/ML VIAL 4500 UNIT IV (13:12)
--- NOTE | 2021-05-15 13:15 | NM_ITS ---
CLINICAL: Male, 56 years old. ELEVATED CREATINE SOB -- PATIENT FELL AND HAVING HIP PAIN -- LUNG CANCER NUCLEAR VENTILATION/PERFUSION - LUNG TECHNIQUE: The patient was administered 4.6 mCi of Tc MAA followed by a perfusion lung scan. The patient was administered 46 mCi of Tc DTPA aerosol followed by a ventilation lung scan. Comparison made to prior chest radiograph dated . COMPARISON STUDIES : Comparison is made with prior chest radiograph done earlier in the day. FINDINGS: The pulmonary perfusion study demonstrates uniform perfusion throughout both lung choudhary. There are no demonstrated segmental or subsegmental perfusion defects The ventilation study demonstrates decreased uptake in the left apex as well as the perihilar regions bilaterally suggestive of a obstructive airway disease. NM/Lung Scan Vent/Perf IMPRESSION: Low probability of pulmonary embolism. Findings suggestive of COPD. Electronically Signed: Baljinder Olivo MD at 14:12 EST , Service support ,
--- NOTE | 2021-05-15 16:37 | EKG12_ITS ---
Test Reason : CP Blood Pressure : / mmHG Vent. Rate : 089 BPM Atrial Rate : 089 BPM P-R Int : 172 ms QRS Dur : 080 ms QT Int : 396 ms P-R-T Axes : 056 078 079 degrees QTc Int : 481 ms Normal sinus rhythm Nonspecific T wave abnormality Prolonged QT Abnormal ECG Confirmed by ARTUR BINGHAM, LELA ([id number]), make up editor REED FLORES ([id number]) on 05/19/2021 10:41:14 AM Referred By: JIHAN Confirmed By:LELA SIDDIQUI MD
[2021-05-15] MEDS: 0.9% Normal Saline 1,000 ML 75 ML IV (16:51)
[2021-05-15 16:53] LABS: Troponin-I HS 1265 pg/mL (3.0-78.0)
--- NOTE | 2021-05-15 17:45 | PCM.HP.STD ---
HPI - General General Date of Admission: 05/15/21 HPI Narrative PATIENCE DEVINE, is a 56 M who presents to the hospital after a fall. Last night he took 2 doses of melatonin and woke up in the morning and fell onto his hip. He did not pass out or hit his head. He presented to the hospital because of right hip pain. He has had this repaired last year with a hip replacement. X-ray of the hip demonstrated no fracture however on lab work he had white count of 16 and a creatinine of over 3, his most recent creatinine prior to this in March was 1.62. He states that he is urinating just fine and he is drinking well. He denies any significant alcohol intake. He denies any chest pain or significant shortness of breath however he was placed on 2 L nasal cannula in the ER, he was 87% on room air in the ED. Covid antigen test was negative. Chest x-ray was unremarkable and D-dimer was elevated however secondary to his renal function a VQ scan was obtained instead which showed a low probability for PE. Denies any abdominal pain or any skin lesions to explain the white count. [facility] Medical History Adenocarcinoma of left lung Alcohol abuse Barretts esophagus Carotid stenosis Closed right hip fracture Depression GERD (gastroesophageal reflux disease) History of CVA (cerebrovascular accident) (08/25/19) Hypothyroidism Hypoxia Major depression with psychotic features New onset seizure Non-small cell lung cancer Peripheral neuropathy Vitamin D deficiency Home Medications citalopram 40 mg PO DAILY 12/15/16 [History Last Taken 05/14/21] levothyroxine 75 mcg PO DAILY 10/09/19 [History Last Taken 05/14/21] omeprazole 40 mg PO DAILY 10/09/19 [History Last Taken 05/14/21] ergocalciferol (vitamin D2) 50,000 unit PO FR 11/23/19 [History Last Taken 05/09/21] sitagliptin 100 mg PO DAILY 08/14/20 [History Last Taken 05/14/21] melatonin 3 mg PO QHS 10/28/20 [History Last Taken 05/14/21] aspirin 81 mg PO DAILY@0800 12/02/20 [History Last Taken 05/14/21] atorvastatin 40 mg PO DAILY 12/02/20 [History Last Taken 05/14/21] calcium carbonate 500 mg PO BIDCM 12/02/20 [History Last Taken 05/14/21] magnesium chloride 71.5 mg PO BID 12/02/20 [History Last Taken 05/14/21] quetiapine 300 mg PO QHS 12/02/20 [History Last Taken 05/14/21] tamsulosin 0.4 mg PO DAILY@1730 12/02/20 [History Last Taken 05/14/21] midodrine 2.5 mg tablet 2.5 mg PO BID tab 01/08/21 [History Last Taken 05/14/21] fentanyl 25 mcg TRANSDERMAL .Q72H 03/14/21 [History Last Taken 05/13/21] potassium chloride 20 mEq tablet,extended release(part/cryst) 20 meq PO BID tab 04/03/21 [History Last Taken 05/14/21] furosemide 40 mg PO DAILY 05/15/21 [History Last Taken 05/14/21] Allergy/AdvReac Type Severity Reaction Status Date / Time No Known Allergies Allergy Verified 04/03/21 13:13 Family History Father Heart disease Mother Heart disease CAD, Hx CABG. CAD (coronary artery disease) CAD, Hx CABG Diabetes Surgical History History of hemiarthroplasty of right hip History of liver biopsy History of right hip replacement (~11/2019) Social History household members: none Smoking Status: Current every day smoker tobacco type: cigarettes alcohol intake: former details: Patient stated that he quit drinking 6 months ago except did have 2 beers. substance use type: marijuana ROS Constitutional Constitutional: Denies chills, fatigue, fever(s) or malaise Eyes Eyes: Denies blurry vision ENT HEENT: Denies headache(s) or nasal discharge Cardiovascular Cardiovascular: Denies chest pain, dyspnea on exertion or syncope Respiratory/Chest Respiratory/Chest: Denies cough, shortness of breath at rest or shortness of breath with exertion Gastrointestinal Gastrointestinal: Denies constipation, diarrhea, nausea or vomiting Genitourinary Genitourinary: Denies dysuria Neurologic Neurologic: Denies focal weakness, numbness or tremor(s) Psychiatric Psychiatric: Denies anxiety or depression Vital Signs Vital Signs Vital Signs: 05/15/21 11:07 05/15/21 11:08 05/15/21 11:10 Temperature 98.1 F Temperature Source Oral Pulse Rate 93 Respiratory Rate 16 Respiratory Effort Respiratory Depth Respiratory Pattern Blood Pressure 123/80 H Blood Pressure Mean 94 Blood Pressure Source Blood Pressure Position Blood Pressure Location Pulse Ox 87 89 89 Oxygen Delivery Method Room Air Nasal Cannula Nasal Cannula Oxygen Flow Rate (L/min) 2 3 05/15/21 11:12 05/15/21 11:20 05/15/21 11:57 Temperature Temperature Source Pulse Rate 97 Respiratory Rate 13 Respiratory Effort Normal Non-Labored Respiratory Depth Respiratory Pattern Normal Blood Pressure Blood Pressure Mean Blood Pressure Source Blood Pressure Position Blood Pressure Location Pulse Ox 3 95 Oxygen Delivery Method Nasal Cannula Nasal Cannula Oxygen Flow Rate (L/min) 92 3 05/15/21 13:14 05/15/21 16:01 05/15/21 16:38 Temperature 97.8 F 98.3 F Temperature Source Temporal Oral Pulse Rate 90 77 88 Respiratory Rate 17 16 Respiratory Effort Respiratory Depth Respiratory Pattern Blood Pressure 114/91 H 102/76 Blood Pressure Mean 98 84 Blood Pressure Source Monitor Blood Pressure Position Semi-Fowlers Blood Pressure Location Right Arm Pulse Ox 94 98 Oxygen Delivery Method Nasal Cannula Nasal Cannula Oxygen Flow Rate (L/min) 3 2 05/15/21 16:59 Temperature Temperature Source Pulse Rate Respiratory Rate Respiratory Effort Normal Non-Labored Respiratory Depth Normal Respiratory Pattern Normal Blood Pressure Blood Pressure Mean Blood Pressure Source Blood Pressure Position Blood Pressure Location Pulse Ox Oxygen Delivery Method Nasal Cannula Oxygen Flow Rate (L/min) 2 Weight Weight: 155 lb 10.342 oz Body Mass Index (BMI) 24.3 Physical Exam Const alert, oriented x3 and no apparent distress General Appearance: cooperative HEENT normocephalic Mouth: dry mucous membranes Eyes PERRL, EOMs intact bilaterally and conjunctivae normal Neck supple and no JVD Resp normal respiratory effort, no retractions, no use of accessory muscles and clear to auscultation bilaterally Auscultation: Negative for crackles, rales, rhonchi or wheezes Cardio regular rate, regular rhythm, S1 normal heart sound, S2 normal heart sound and no murmurs GI soft to palpation, non-tender and non-distended; Negative for hepatosplenomegaly Extremity no clubbing, cyanosis or edema Skin no rashes or lesions noted Neuro no focal motor deficits and no sensory deficits noted Psych affect normal Appearance: appropriate Results Lab / Micro Data Result Diagrams: 05/15/21 12:05 05/15/21 12:05 Labs: Laboratory Results - last 24 hr 05/15/21 12:05: WBC 16.5 H, RBC 5.23, Hgb 14.8, Hct 46.7, MCV 89.3, MCH 28.3, MCHC 31.7 L, RDW Std Deviation 50.8 H, RDW Coeff of Sophie 15.6 H, Plt Count 397, MPV 10.3, Immature Gran % (Auto) 0.600, Neut % (Auto) 89.4 H, Lymph % (Auto) 4.7 L, [place] % (Auto) 5.1, Eos % (Auto) 0.0, Baso % (Auto) 0.2, Absolute Neuts (auto) 14.7 H, Absolute Lymphs (auto) 0.78 L, Nucleated RBC % 0, Differential Comment SCANNED 05/15/21 12:05: PT 12.4, INR 1.0, APTT 28.7, D-Dimer Quant (PE/DVT) 1.28 H* 05/15/21 12:05: Sodium 133 L, Potassium 4.7, Chloride 93 L, Carbon Dioxide 33.0 H, Anion Gap 7, BUN 19 H, Creatinine 3.08 H, Estim Creat Clear Calc 24.44, Est GFR (MDRD) Af Amer 27 L, Est GFR (MDRD) Non-Af 22 L, BUN/Creatinine Ratio 6.2 L, Glucose 146 H, Calcium 9.5, Troponin I High Sens 987 H* 05/15/21 12:05: Ethyl Alcohol 5.0 05/15/21 16:12: Troponin I High Sens 1265 H* Micro: Microbiology 05/15/21 12:18 Nasal Secretion SARS-CoV-2 Antigen (Rapid) - Final Radiology Impression Chest X-Ray 05/15/21 11:16 IMPRESSION: Stable left apical soft tissue density with retraction of the left hilum. Blunting of the left costophrenic angle. Electronically Signed: Baljinder Olivo MD at 11:54 EST , Service support , Hip/Pelvis X-Ray 05/15/21 11:16 IMPRESSION: Status post right hip replacement. No fracture or dislocation. Electronically Signed: Baljinder Olivo MD at 11:52 EST , Service support , Lung Scan-VQ NM 05/15/21 13:15 IMPRESSION: Low probability of pulmonary embolism. Findings suggestive of COPD. Electronically Signed: Baljinder Olivo MD at 14:12 EST , Service support , Assessment & Plan Assessment/Plan (1) Contusion of hip, right: (2) EVERARDO (acute kidney injury): (3) Acute respiratory failure with hypoxia: PLAN: 1. Elevated D-dimer with an EVERARDO and elevated troponin/acute hypoxic respiratory failure/HLD/history of CVA -She has had multiple echoes within the last year -We will obtain serial troponins and if they continue to rise may need to replace him back on a heparin drip and consult cardiology -VQ scan was negative for PE -He does have a history of diastolic CHF, therefore will provide gentle IV hydration for this kidney -Recent history of bilateral pleural effusions -Continue with aspirin and statin -We will do bladder scan to see if he has any urinary retention history of BPH and obtain a UA to evaluate his leukocytosis -Unsure as to the etiology of his respiratory failure at the moment. Continue with the 2 L nasal cannula we will check a respiratory panel, he does have a history of chronic COPD though he does not take any medications for it. 2. Fall -Unsure as to the etiology could be related to the multiple melatonin she took last night -X-ray of the hip is negative for fracture 3. DM2 -We will hold his home medications and place him on insulin -Accu-Cheks AC at bedtime make adjustments as necessary 4. Hypothyroidism -Stable -Continue with Synthroid 5. Anxiety/depression/chronic pain syndrome -Stable -Continue with home meds 6. GERD -Stable -Continue with PPI 7. BPH -Stable -Continue with Flomax DVT: Heparin drip Charges/Coding Visit Charges Inpatient E&M: 44479 Init Hosp L3
[2021-05-15 18:39] LABS: Troponin-I HS 1164 pg/mL (3.0-78.0)
[2021-05-15 18:48] LABS: Bacteria 0 SEEN /hpf (None Seen); Mucous, Urine 0 SEEN /hpf (<or=2+); White Blood Cells 0 SEEN /hpf (0-5)
[2021-05-15 18:54] LABS: Color, Urine Yellow (Yellow); Glucose, Dipstick Normal (Normal); Ketone-Dipstick Negative (Negative); Leukocyte Esterase-Dipstick Negative /ul (Negative); Nitrite-Dipstick Negative (Negative); Occult Blood-Urine 150 /ul (Negative); Protein-Dipstick 30 mg/dl (Negative); Urine Bilirubin Dipstick Negative (Negative); Urine Clarity Sl. Cloudy (Clear); Urine Urobilinogen Normal (Normal)
[2021-05-15 19:06] LABS: Amorphous Sediment 1+ URATE; Red Blood Cells-Urine 5-10 SEEN /hpf (0-5); Squamous Epithelial Cells - UA 0-5 SEEN /hpf (0-5)
[2021-05-15 19:53] LABS: Partial Thromboplast Time 35.1 Seconds (24.1-36.2)
[2021-05-15] MEDS: Tamsulosin HCl 0.4 MG Capsule PO (19:55)
[2021-05-15] MEDS: MELATONIN 3 MG TABLET PO (22:40)
[2021-05-15] MEDS: Atorvastatin Calcium 40 MG Tablet PO (22:40)
[2021-05-15] MEDS: QUEtiapine 100 MG Tablet 300 MG PO (22:40)
[2021-05-15] MEDS: Potassium Chloride Oral Tablet 20 MEQ PO (22:41)
[2021-05-15] MEDS: Calcium Carbonate 500 MG Tablet PO (22:41)
[2021-05-15 22:55] LABS: Bedside Glucose 100 mg/dL (70-110)
[2021-05-16] VITALS (11 sets, daily range): BP systolic 104–127; BP diastolic 65–84; PULSE 82–104; RESP 16–20; TEMP 36.2–36.8; O2SAT 91–98
--- NOTE | 2021-05-16 05:59 | NURSING ---
pt bladder scanned for 803ml, west placed
[2021-05-16] MEDS: Levothyroxine 75 MCG Tablet PO (06:06)
[2021-05-16] MEDS: 0.9% Normal Saline 1,000 ML 75 ML IV ×2 (06:16→18:42)
[2021-05-16 06:54] LABS: Absolute Neutrophil Count 9.6 X10^3/uL (2.0-7.7); Basophil# 0.03 X10^3/uL; Basophil% 0.3 % (0-1); Eosinophil# 0.13 X10^3/uL; Eosinophils% 1.1 % (0-5); Hematocrit 38.4 % (40-54); Hemoglobin 12.3 g/dL (13.0-16.5); Mean Corpuscular Hgb 28.2 pg (27.0-32.0); Mean Corpuscular Volume 88.1 fL (80-94); Monocyte# 0.78 X10^3/uL; Monocyte% 6.8 % (0-10); NRBC Flagged by Analyzer 0 % (0-5); Neutrophil # 9.61 X10^3/uL (2.7-7.7); Neutrophil % 84.4 % (47-70); Platelet Count 334 K/mm3 (150-450); RBC Distribution Width CV 15.5 % (11.6-14.6); RBC Distribution Width SD 50.3 fl (35.1-43.9); Red Blood Count 4.36 M/mm3 (4.6-6.2); White Blood Count 11.4 K/mm3 (4.4-11.0)
[2021-05-16 07:21] LABS: ALB/GLOB Ratio 0.5 RATIO (0.9-2.4); AST(SGOT) 41 U/L (15-37); Alanine Aminotransfer ALT/SGPT 15 U/L (16-61); Albumin, Serum 2.4 g/dL (3.2-5.0); Alkaline Phosphatase 88 U/L (45-117); Anion Gap 7 (5-15); BUN 18 mg/dL (7-18); BUN/Creat Ratio 10.3 RATIO (10-20); Calcium,Total 8.4 mg/dL (8.5-10.1); Chloride 95 mmol/L (98-107); Creatinine, Serum 1.75 mg/dL (0.70-1.30); EST Glomerular Filtration Rate 43 mL/min (>60); Est Glom Filt Rate - Afr Amer 52 mL/min (>60); Estimated Creatinine Clearance 41.52 ml/min; Globulin 4.7 g/dL (2.2-4.2); Glucose 80 mg/dL (74-106); Potassium 3.1 mmol/L (3.5-5.1); Protein, Total 7.1 g/dL (6.4-8.2); Sodium Level 134 mmol/L (136-145)
[2021-05-16] MEDS: Ipratropium/Albuterol Sulfate 3 ML AMPUL.NEB INHALATION ×2 (07:22→11:06)
[2021-05-16 07:30] LABS: Bedside Glucose 83 mg/dL (70-110)
[2021-05-16 07:54] LABS: Magnesium 1.6 mg/dL (1.6-2.6); Phosphorus 2.2 mg/dL (2.5-4.9)
[2021-05-16] MEDS: Midodrine HCl 5 MG Tablet 2.5 MG PO ×2 (08:49→16:16)
[2021-05-16] MEDS: Pantoprazole Sodium 40 MG Tablet PO (08:50)
[2021-05-16] MEDS: Citalopram 40 MG TABLET PO (08:50)
[2021-05-16] MEDS: Aspirin 81 MG TAB.CHEW PO (08:50)
--- NOTE | 2021-05-16 08:57 | NURSING ---
Pts home fentanyl patch 50mcg/hr flushed down toilet at this time with Lima erwin RN.
[2021-05-16] MEDS: fentaNYL 25 MCG Patch TD (08:58)
[2021-05-16] MEDS: Potassium Chloride Oral Tablet 20 MEQ 60 MEQ PO (08:58)
--- NOTE | 2021-05-16 11:35 | CASEMGMT ---
Addendum entered by Brittni Villavicencio 05/16/21 15:25: Pt states is also active with [facility] but is unsure of CM name. Mary FERGUSON aware, voices understanding. Esau LEONG CM Original Note: RN BARBIE assessment: Face to Face with patient for initial transition planning/care coordination assessment. RN BARBIE introduced self and role at [facility], pt voices understanding and consents to assessment. Pt is sitting up in chair in no distress on 3L nc. Pt is A/Ox4 and answers all questions appropriately. Care providers, pharmacy, and demographics verified. Presentation: Pt c/o dizziness/right hip pain after rolling out of bed last pm Admitting dx: Renal failure, elev dimer, elev trop PCP: Isaias Specialists: Leroy, onc; Allie, PM; Guero, cardio Preferred Pharmacy: [facility] Insurance: [place] Prescription Benefit: [place] Living Will/HPOA: Pt unsure whether he has LW/HPOA and declines AD info. LNOK: Carmine Givens, brother Living Arrangements: Pt lives with alone in 1 floor apt with elevator in and states no concerns at home. Pt is independent with ADL's. Transportation: Pt drives self and states no transportation concerns. DME/HHC: Pt has the following DME: quad cane, rollator, medical alert, BP cuff, glucometer, grab bars, shower bench(HCP access), lift chair, and 2L continous home oxygen thru [employer]. Pt states no need for any further DME. Pt states has had [facility] the past and has been to [place]. Pt states would like [facility] set up for discharge and states first choice is [facility] then [facility]. Order placed for SN/PT/OT. Pt is disabled. Pt states smokes 1.5pk cigarettes daily and drinks 2-3 beers/week. Pt states also smokes marijuana 2-3x/week. Pt voices no further concerns/needs. CM to follow for any further discharge planning/needs. Advised pt to ask for CM if any further questions/concerns/needs arise, voices understanding. Pt Goal: Home w/ HHC Plan: Home w/ HHC Esau LEONG CM
[2021-05-16] MEDS: Potassium Chloride Oral Tablet 20 MEQ PO ×2 (12:00→21:31)
[2021-05-16] MEDS: Insulin Lispro 100 UNIT/ML INSULN.PEN SC (12:04)
[2021-05-16 12:35] LABS: Bedside Glucose 161 mg/dL (70-110)
--- NOTE | 2021-05-16 13:28 | PN.HOSP_ITS ---
Subjective Subjective Doing well, no chest pain or shortness of breath. Hip still hurts but no fracture Objective Data Objective Data Vital Signs: Vital Signs Temp Pulse Resp BP Pulse Ox 98.1 F 104 H 16 104/65 98 05/16/21 12:07 05/16/21 12:07 05/16/21 12:07 05/16/21 12:07 05/16/21 12:07 Oxygen Flow Rate (L/min) 4 Oxygen Delivery Method Nasal Cannula Weight: 155 lb 10.342 oz Body Mass Index (BMI) 24.3 Intake & Output: Intake and Output for Last 24 Hours 05/15/21 05/16/21 05/17/21 03:59 03:59 03:59 Intake Total 250.23 / 250.23 1840 / 1840 Output Total 900 / 900 900 / 900 Balance -649.77 / -649.77 940 / 940 Lab / Micro Data Result Diagrams: 05/16/21 06:23 05/16/21 06:23 Labs: Laboratory Results - last 24 hr 05/15/21 16:12: Troponin I High Sens 1265 H* 05/15/21 17:44: Troponin I High Sens 1164 H* 05/15/21 18:30: Urine Color Yellow, Urine Clarity Sl. Cloudy, Urine pH 6.0, Ur Specific [place] 1.020, Urine Protein 30 H, Urine Glucose (UA) Normal, Urine Ketones Negative, Urine Occult Blood 150 H, Urine Nitrite Negative, Urine Bilirubin Negative, Urine Urobilinogen Normal, Ur Leukocyte Esterase Negative, Urine RBC 5-10 SEEN, Urine WBC 0 SEEN, Ur Squamous Epith Cells 0-5 SEEN, Amorphous Sediment 1+ URATE, Urine Bacteria 0 SEEN, Urine Mucus 0 SEEN 05/15/21 19:26: APTT 35.1 05/15/21 22:36: POC Glucose 100 05/16/21 06:23: WBC 11.4 H, RBC 4.36 L, Hgb 12.3 L, Hct 38.4 L, MCV 88.1, MCH 28.2, MCHC 32.0, RDW Std Deviation 50.3 H, RDW Coeff of Sophie 15.5 H, Plt Count 33 4, MPV 10.0, Immature Gran % (Auto) 0.400, Neut % (Auto) 84.4 H, Lymph % (Auto) 7.0 L, [place] % (Auto) 6.8, Eos % (Auto) 1.1, Baso % (Auto) 0.3, Absolute Neuts (auto) 9.6 H, Absolute Lymphs (auto) 0.80 L, Nucleated RBC % 0 05/16/21 06:23: Sodium 134 L, Potassium 3.1 L, Chloride 95 L, Carbon Dioxide 32.0, Anion Gap 7, BUN 18, Creatinine 1.75 H, Estim Creat Clear Calc 41.52, Est GFR (MDRD) Af Amer 52 L, Est GFR (MDRD) Non-Af 43 L, BUN/Creatinine Ratio 10.3, Glucose 80, Calcium 8.4 L, Total Bilirubin 0.30, AST 41 H, ALT 15 L, Alkaline Phosphatase 88, Total Protein 7.1, Albumin 2.4 L, Globulin 4.7 H, Albumin/Globulin Ratio 0.5 L 05/16/21 06:23: Phosphorus 2.2 L, Magnesium 1.6 05/16/21 06:45: POC Glucose 83 05/16/21 11:59: POC Glucose 161 H Micro: Microbiology 05/15/21 12:18 Nasal Secretion SARS-CoV-2 Antigen (Rapid) - Final Radiography Diagnostic Testing: Radiology Impression Lung Scan-VQ NM 05/15/21 13:15 IMPRESSION: Low probability of pulmonary embolism. Findings suggestive of COPD. Electronically Signed: Baljinder Olivo MD at 14:12 EST , Service support , Physical Exam Const alert, oriented x3 and no apparent distress General Appearance: cooperative HEENT normocephalic Eyes PERRL, EOMs intact bilaterally and conjunctivae normal Neck supple and no JVD Resp normal respiratory effort, no retractions, no use of accessory muscles and clear to auscultation bilaterally Auscultation: Negative for crackles, rales, rhonchi or wheezes Cardio regular rate, regular rhythm, S1 normal heart sound, S2 normal heart sound and no murmurs GI soft to palpation, non-tender and non-distended; Negative for hepatosplenomegaly Extremity no clubbing, cyanosis or edema Skin no rashes or lesions noted Neuro no focal motor deficits and no sensory deficits noted Psych affect normal Appearance: appropriate Assessment & Plan Assessment/Plan (1) Contusion of hip, right: (2) EVERARDO (acute kidney injury): (3) Acute respiratory failure with hypoxia: PLAN: 1. Elevated D-dimer with an EVERARDO due to urinary retention and elevated tropo mukund/acute hypoxic respiratory failure/HLD/history of CVA -He has had multiple echoes within the last year -Troponins peaked at 1200, will consult cardiology for evaluation if he may need a cath as an outpatient in the near future -VQ scan was negative for PE -He does have a history of diastolic CHF, therefore will provide gentle IV hydration for this kidney -Recent history of bilateral pleural effusions -Continue with aspirin and statin -Bladder scan showed urinary retention of about 900 cc, he was straight cathed x1 and then had to have a Meza placed -Unsure as to the etiology of his respiratory failure at the moment. Continue with the 2 L nasal cannula we will check a respiratory panel, he does have a history of chronic COPD though he does not take any medications for it. 2. Fall -Unsure as to the etiology could be related to the multiple melatonin she took last night -X-ray of the hip is negative for fracture 3. DM2 -We will hold his home medications and place him on insulin -Accu-Cheks AC at bedtime make adjustments as necessary 4. Hypothyroidism -Stable -Continue with Synthroid 5. Anxiety/depression/chronic pain syndrome -Stable -Continue with home meds 6. GERD -Stable -Continue with PPI 7. BPH -Stable -Continue with Flomax DVT: Heparin Charges/Coding Visit Charges Inpatient E&M: 92871 Subs Hosp L2
[2021-05-16] MEDS: Heparin Injection (Vial) 5,000 UNIT/ML VIAL 5000 UNIT SC ×2 (13:42→21:32)
--- NOTE | 2021-05-16 14:09 | CON.PCM.CA_ITS ---
Documented by User: Lilia GUARDADO, GEO 05/16/21 16:08 Assessment & Plan Assessment/Plan (1) Non-ST elevated myocardial infarction: (2) Acute kidney injury: PLAN: * with significant elevation of troponins will repeat echo to recheck LV function * will also repeat troponin in AM to see if continued trend down * Will start on low dose coreg * will continue with ASA, Atorvastatin, heparin * with his EVERARDO, will consult nephrology, would appreciate there input for possible heart cath on Wednesday * with EVERARDO at this time will hold off on starting an NORBERT-I HPI Consult Data Date of Consult: 05/16/21 HPI Narrative HPI Narrative: PATIENCE DEVINE, is a 56 M who we were asked to consult on for an elevated troponin. Troponins have trended at 987, 2265, 1164. Patient was admitted on 05/15/2021 after a fall. He had fallen on his right hip he had pain in his hip and this is why he presented to the emergency room. He did have an elevated white count of 16 and a creatinine of over 3. Creatinine at previous hospital stay in March was 1.62. He was also noted to be hypoxic on room air. Covid test was negative. D-dimer was elevated and it was felt that it was elevated secondary to his renal function. VQ scan was obtained which demonstrated low probability for PE. He does have a history of diastolic heart failure, hypertension carotid artery disease, non-small cell lung carcinoma, CVA (2019). In October he was hospitalized for bilateral pleural effusion, pericardial effusion without tamponade. Patient notes that he had significant hip pain, he did not necessarily have chest discomfort however did have significant fatigue. He still does feel weak. He did not have any shortness of breath or irregular heartbeats. He is not physically active. He does ambulate with a walker. He still does smoke. [facility] Medical History (Updated 05/27/21 @ 00:01 by Background Daemon) Adenocarcinoma of left lung Alcohol abuse Barretts esophagus Carotid stenosis Chronic hepatitis C Closed right hip fracture Contusion of hip, right Depression Diabetes mellitus type 2 in nonobese DM2 (diabetes mellitus, type 2) Essential (primary) hypertension Fall GERD (gastroesophageal reflux disease) History of CVA (cerebrovascular accident) (08/25/19) Hypothyroidism Hypoxia Major depression with psychotic features New onset seizure Non-small cell lung cancer Non-ST elevated myocardial infarction (05/15/21) Peripheral neuropathy Tobacco dependence Vitamin D deficiency Home Medications citalopram 40 mg PO DAILY 12/15/16 [History Last Taken 05/14/21] levothyroxine 75 mcg PO DAILY 10/09/19 [History Last Taken 05/14/21] omeprazole 40 mg PO DAILY 10/09/19 [History Last Taken 05/14/21] ergocalciferol (vitamin D2) 50,000 unit PO FR 11/23/19 [History Last Taken 05/09/21] sitagliptin 100 mg PO DAILY 08/14/20 [History Last Taken 05/14/21] melatonin 3 mg PO QHS 10/28/20 [History Last Taken 05/14/21] aspirin 81 mg PO DAILY@0800 12/02/20 [History Last Taken 05/14/21] atorvastatin 40 mg PO DAILY 12/02/20 [History Last Taken 05/14/21] calcium carbonate 500 mg PO BIDCM 12/02/20 [History Last Taken 05/14/21] magnesium chloride 71.5 mg PO BID 12/02/20 [History Last Taken 05/14/21] quetiapine 300 mg PO QHS 12/02/20 [History Last Taken 05/14/21] tamsulosin 0.4 mg PO DAILY@1730 12/02/20 [History Last Taken 05/14/21] midodrine 2.5 mg tablet 2.5 mg PO BID tab 01/08/21 [History Last Taken 05/14/21] fentanyl 25 mcg TRANSDERMAL .Q72H 03/14/21 [History Last Taken 05/13/21] potassium chloride 20 mEq tablet,extended release(part/cryst) 20 meq PO BID tab 04/03/21 [History Last Taken 05/14/21] furosemide 40 mg PO DAILY 05/15/21 [History Last Taken 05/14/21] carvedilol 3.125 mg PO BID #60 tab 05/19/21 [Rx Last Taken Unknown] Allergy/AdvReac Type Severity Reaction Status Date / Time No Known Allergies Allergy Verified 04/03/21 13:13 Family History Father Heart disease Mother Heart disease CAD, Hx CABG. CAD (coronary artery disease) CAD, Hx CABG Diabetes Surgical History (Updated 05/19/21 @ 10:15 by Reina Miranda) History of hemiarthroplasty of right hip History of left heart catheterization (05/19/21) History of liver biopsy History of right hip replacement (11/2019) Social History household members: none Smoking Status: Current every day smoker tobacco type: cigarettes alcohol intake: former details: Patient stated that he quit drinking 6 months ago except did have 2 beers. substance use type: marijuana ROS Constitutional Constitutional: Reports systems reviewed and no addt'l complaints, except as documented, fatigue and frequent falls Eyes Eyes: Reports systems reviewed and no addt'l complaints, except as documented ENT HEENT: Reports systems reviewed and no addt'l complaints, except as documented Cardiovascular Cardiovascular: Reports as per HPI Respiratory/Chest Respiratory/Chest: Reports as per HPI Gastrointestinal Gastrointestinal: Reports systems reviewed and no addt'l complaints, except as documented Musculoskeletal Musculoskeletal: Reports as per HPI Neurologic Neurologic: Reports systems reviewed and no addt'l complaints, except as documented Physical Exam Const alert, oriented x3, no apparent distress and average body habitus HEENT normocephalic, head/scalp atraumatic, hearing grossly normal bilaterally, external ears normal, external nose normal and moist oral mucous membranes Eyes PERRL, EOMs intact bilaterally, conjunctivae normal and no scleral icterus Neck full ROM, no lymphadenopathy, supple and no JVD Chest inspection of chest normal Resp Auscultation: crackles left base and diminished lung sounds bilateral Cardio regular rate, regular rhythm, S1 normal heart sound, S2 normal heart sound, no murmurs, no rub, no gallops, no clicks and peripheral pulses 2+ throughout GI normal to inspection, nondistended, normoactive bowel sounds, soft to palpation, non-tender and non-distended Extremity normal to inspection and normal capillary refill Neuro oriented x3, CN's II-XII intact bilaterally and moves all extremities Risk Stratification Risk Stratification Applicable: Yes Age >/= 65: No >/= 3 CAD Risk Factors (HTN, HLD, DM, family hx of CAD, or current smoker): Yes Aspirin Use in the Past 7 Days: Yes Severe Angina (>/= episodes in 24 hours): No EKG ST Changes >/= 0.5mm: No Positive Cardiac Marker: Yes ALPESH Risk Stratification Score: 3 ALPESH % Risk: 13% Risk Charges/Coding Visit Charges Office Visits / Consults: 11179 IP Consult L4 Objective Data Vital Signs: Vital Signs Temp Pulse Resp BP Pulse Ox 98.1 F 104 H 16 104/65 98 05/16/21 12:07 05/16/21 12:07 05/16/21 12:07 05/16/21 12:07 05/16/21 12:07 Oxygen Flow Rate (L/min) 4 Oxygen Delivery Method Nasal Cannula Weight: 155 lb 10.342 oz Body Mass Index (BMI) 24.3 Intake & Output: Intake and Output for Last 24 Hours 05/14/21 05/15/21 05/16/21 23:59 23:59 23:59 Intake Total 250.23 / 250.23 1840 / 1840 Output Total 900 / 900 900 / 900 Balance -649.77 / -649.77 940 / 940 Lab / Micro Data Result Diagrams: 05/18/21 06:15 05/19/21 06:35 Labs: Laboratory Results - last 24 hr 05/15/21 16:12: Troponin I High Sens 1265 H* 05/15/21 17:44: Troponin I High Sens 1164 H* 05/15/21 18:30: Urine Color Yellow, Urine Clarity Sl. Cloudy, Urine pH 6.0, Ur Specific [place] 1.020, Urine Protein 30 H, Urine Glucose (UA) Normal, Urine Ketones Negative, Urine Occult Blood 150 H, Urine Nitrite Negative, Urine Bilirubin Negative, Urine Urobilinogen Normal, Ur Leukocyte Esterase Negative, Urine RBC 5-10 SEEN, Urine WBC 0 SEEN, Ur Squamous Epith Cells 0-5 SEEN, Amorphous Sediment 1+ URATE, Urine Bacteria 0 SEEN, Urine Mucus 0 SEEN 05/15/21 19:26: APTT 35.1 05/15/21 22:36: POC Glucose 100 05/16/21 06:23: WBC 11.4 H, RBC 4.36 L, Hgb 12.3 L, Hct 38.4 L, MCV 88.1, MCH 28.2, MCHC 32.0, RDW Std Deviation 50.3 H, RDW Coeff of Sophie 15.5 H, Plt Count 334, MPV 10.0, Immature Gran % (Auto) 0.400, Neut % (Auto) 84.4 H, Lymph % (Auto) 7.0 L, [place] % (Auto) 6.8, Eos % (Auto) 1.1, Baso % (Auto) 0.3, Absolute Neuts (auto) 9.6 H, Absolute Lymphs (auto) 0.80 L, Nucleated RBC % 0 05/16/21 06:23: Sodium 134 L, Potassium 3.1 L, Chloride 95 L, Carbon Dioxide 32.0, Anion Gap 7, BUN 18, Creatinine 1.75 H, Estim Creat Clear Calc 41.52, Est GFR (MDRD) Af Amer 52 L, Est GFR (MDRD) Non-Af 43 L, BUN/Creatinine Ratio 10.3, Glucose 80, Calcium 8.4 L, Total Bilirubin 0.30, AST 41 H, ALT 15 L, Alkaline Phosphatase 88, Total Protein 7.1, Albumin 2.4 L, Globulin 4.7 H, Albumin/Globulin Ratio 0.5 L 05/16/21 06:23: Phosphorus 2.2 L, Magnesium 1.6 05/16/21 06:45: POC Glucose 83 05/16/21 11:59: POC Glucose 161 H Micro: Microbiology 05/15/21 12:18 Nasal Secretion SARS-CoV-2 Antigen (Rapid) - Final Cardiology Labs/Tests 05/15/21 18:30: Urine Color Yellow, Urine Clarity Sl. Cloudy, Urine pH 6.0, Ur Specific [place] 1.020, Urine Protein 30 H, Urine Glucose (UA) Normal, Urine Ketones Negative, Urine Occult Blood 150 H, Urine Nitrite Negative, Urine Bilirubin Negative, Urine Urobilinogen Normal, Ur Leukocyte Esterase Negative, Urine RBC 5-10 SEEN, Urine WBC 0 SEEN 05/15/21 19:26: APTT 35.1 05/16/21 06:23: WBC 11.4 H, RBC 4.36 L, Hgb 12.3 L, Hct 38.4 L, MCV 88.1, MCH 2 8.2, MCHC 32.0, Plt Count 334, MPV 10.0, Immature Gran % (Auto) 0.400, Neut % (Auto) 84.4 H, Lymph % (Auto) 7.0 L, [place] % (Auto) 6.8, Eos % (Auto) 1.1, Baso % (Auto) 0.3, Absolute Neuts (auto) 9.6 H, Nucleated RBC % 0 05/16/21 06:23: Sodium 134 L, Potassium 3.1 L, Chloride 95 L, Carbon Dioxide 32.0, Anion Gap 7, BUN 18, Creatinine 1.75 H, Est GFR (MDRD) Af Amer 52 L, Est GFR (MDRD) Non-Af 43 L, BUN/Creatinine Ratio 10.3, Glucose 80, Calcium 8.4 L, Total Bilirubin 0.30 05/16/21 06:23: Phosphorus 2.2 L, Magnesium 1.6 Rhythm: EKG: Sinus rhythm, T wave abnormality, consider inferior ischemia. Heart rate 92 ECHO: 03/2021:The estimated ejection fraction is EF 50-55 %. Small pericardial effusion , No significant changes from prior echo Radiography Diagnostic Testing: Radiology Impression Lung Scan-VQ NM 05/15/21 13:15 IMPRESSION: Low probability of pulmonary embolism. Findings suggestive of COPD. Electronically Signed: Baljinder Olivo MD at 14:12 EST , Service support , Documented by User: Dr. Angeline Manjarrez MD 05/28/21 12:48 HPI Consult Data Date of Consult: 05/28/21 [facility] Medical History (Updated 05/27/21 @ 00:01 by Background Daemon) Adenocarcinoma of left lung Alcohol abuse Barretts esophagus Carotid stenosis Chronic hepatitis C Closed right hip fracture Contusion of hip, right Depression Diabetes mellitus type 2 in nonobese DM2 (diabetes mellitus, type 2) Essential (primary) hypertension Fall GERD (gastroesophageal reflux disease) History of CVA (cerebrovascular accident) (08/25/19) Hypothyroidism Hypoxia Major depression with psychotic features New onset seizure Non-small cell lung cancer Non-ST elevated myocardial infarction (05/15/21) Peripheral neuropathy Tobacco dependence Vitamin D deficiency Home Medications citalopram 40 mg PO DAILY 12/15/16 [History Last Taken 05/14/21] levothyroxine 75 mcg PO DAILY 10/09/19 [History Last Taken 05/14/21] omeprazole 40 mg PO DAILY 10/09/19 [History Last Taken 05/14/21] ergocalciferol (vitamin D2) 50,000 unit PO FR 11/23/19 [History Last Taken 05/09/21] sitagliptin 100 mg PO DAILY 08/14/20 [History Last Taken 05/14/21] melatonin 3 mg PO QHS 10/28/20 [History Last Taken 05/14/21] aspirin 81 mg PO DAILY@0800 12/02/20 [History Last Taken 05/14/21] atorvastatin 40 mg PO DAILY 12/02/20 [History Last Taken 05/14/21] calcium carbonate 500 mg PO BIDCM 12/02/20 [History Last Taken 05/14/21] magnesium chloride 71.5 mg PO BID 12/02/20 [History Last Taken 05/14/21] quetiapine 300 mg PO QHS 12/02/20 [History Last Taken 05/14/21] tamsulosin 0.4 mg PO DAILY@1730 12/02/20 [History Last Taken 05/14/21] midodrine 2.5 mg tablet 2.5 mg PO BID tab 01/08/21 [History Last Taken 1 07/14/20] fentanyl 25 mcg TRANSDERMAL .Q72H 03/14/21 [History Last Taken 05/13/21] potassium chloride 20 mEq tablet,extended release(part/cryst) 20 meq PO BID tab 04/03/21 [History Last Taken 05/14/21] furosemide 40 mg PO DAILY 05/15/21 [History Last Taken 05/14/21] carvedilol 3.125 mg PO BID #60 tab 05/19/21 [Rx Last Taken Unknown] Allergy/AdvReac Type Severity Reaction Status Date / Time No Known Allergies Allergy Verified 04/03/21 13:13 Family History Father Heart disease Mother Heart disease CAD, Hx CABG. CAD (coronary artery disease) CAD, Hx CABG Diabetes Surgical History (Updated 05/19/21 @ 10:15 by Reina Miranda) History of hemiarthroplasty of right hip History of left heart catheterization (05/19/21) History of liver biopsy History of right hip replacement (11/2019) Social History household members: none Smoking Status: Current every day smoker tobacco type: cigarettes alcohol intake: former details: Patient stated that he quit drinking 6 months ago except did have 2 beers. substance use type: marijuana Lab / Micro Data Result Diagrams: 05/18/21 06:15 05/19/21 06:35
--- NOTE | 2021-05-16 14:18 | CASEMGMT ---
Addendum entered by Brittni Villavicencio 05/16/21 15:24: Green sheet on chart for HHC and increased home oxygen. Esau LEONG CM Original Note: Call to Diane at [facility] and she states they do accept [facility] insurance and referral made at this time. Esau LEONG CM
--- NOTE | 2021-05-16 15:18 | ECHOL_ITS ---
Reason For Study: NSTEMI Procedure This was a limited 2D transthoracic echocardiogram. Exam performed portable in patient room. Left Ventricle Mildly dilated left ventricle. The estimated ejection fraction is 40-45 %. Right Ventricle Normal right ventricle. The right ventricular wall motion is normal. Atria Normal left atrium. Normal right atrium. Mitral Valve The mitral valve is structurally normal. No prolapse or stenosis seen. Tricuspid Valve The tricuspid valve is not well visualized. Aortic Valve The aortic valve is not well visualized. Pulmonic Valve The pulmonic valve is not well visualized. Great Vessels Normal aortic root. Pericardium/Pleural Trivial pericardial effusion. MMode/2D Measurements & Calculations LVIDd: 4.7 cm IVSd: 0.87 cm Ao root diam: 2.9 cm LVIDs: 3.4 cm LVPWd: 0.95 cm FS: 27.8 % LAV(MOD-bp): 40.3 ml LA A4 area: 15.1 cm2 LA dimension(2D): 3.3 cm LAV(MOD-bp) Indexed: 22.2 ml/m2 LAV(MOD-sp2): 40.2 ml LAV(MOD-sp4): 40.7 ml RA A4 area: 13.7 cm2 ECHO/Echo, Limited Study Interpretation Summary Limited TTE for LV wall motion and LV function Evaluation. The estimated ejection fraction is 40-45 %. Moderate LV systolic function Anterosetal Hypokinesia Significant Wall motion abnormalities in comparsion to echo 03/15/2021 Ordering Physician: Lilia Suazo Referring Physician: Zurdo Esparza Performed By: Tennille Middleton, LOREN, RVT
[2021-05-16] MEDS: Tamsulosin HCl 0.4 MG Capsule PO (16:16)
[2021-05-16 16:20] LABS: Bedside Glucose 128 mg/dL (70-110)
[2021-05-16] MEDS: Carvedilol 3.125 MG TABLET PO (21:31)
[2021-05-16] MEDS: MELATONIN 3 MG TABLET PO (21:31)
[2021-05-16] MEDS: Atorvastatin Calcium 40 MG Tablet PO (21:31)
[2021-05-16] MEDS: QUEtiapine 100 MG Tablet 300 MG PO (21:31)
[2021-05-16 21:45] LABS: Bedside Glucose 118 mg/dL (70-110)
[2021-05-17] VITALS (15 sets, daily range): BP systolic 92–128; BP diastolic 54–76; PULSE 81–96; RESP 16–18; TEMP 36.4–37.1; O2SAT 67–98
[2021-05-17 06:41] LABS: Absolute Lymphocyte Count 0.93 X10^3/uL (0.83-4.51); Absolute Neutrophil Count 9.5 X10^3/uL (2.0-7.7); Basophil# 0.03 X10^3/uL; Basophil% 0.3 % (0-1); Eosinophil# 0.16 X10^3/uL; Eosinophils% 1.4 % (0-5); Hematocrit 37.3 % (40-54); Hemoglobin 11.8 g/dL (13.0-16.5); Lymphocyte # 0.93 X10^3/ul (0.83-4.51); Lymphocyte % 8.2 % (19-41); Mean Corp Hgb Conc 31.6 g/dL (32-36); Mean Corpuscular Hgb 28.6 pg (27.0-32.0); Mean Corpuscular Volume 90.3 fL (80-94); Mean Platelet Vol. 10.1 fl (6.2-12.0); Monocyte# 0.73 X10^3/uL; Monocyte% 6.4 % (0-10); NRBC Flagged by Analyzer 0 % (0-5); Neutrophil # 9.46 X10^3/uL (2.7-7.7); Neutrophil % 83.2 % (47-70); Platelet Count 344 K/mm3 (150-450); RBC Distribution Width CV 15.8 % (11.6-14.6); RBC Distribution Width SD 51.6 fl (35.1-43.9); Red Blood Count 4.13 M/mm3 (4.6-6.2); White Blood Count 11.4 K/mm3 (4.4-11.0)
[2021-05-17] MEDS: Heparin Injection (Vial) 5,000 UNIT/ML VIAL 5000 UNIT SC ×3 (07:01→20:33)
[2021-05-17] MEDS: Levothyroxine 75 MCG Tablet PO (07:01)
[2021-05-17 07:05] LABS: Bedside Glucose 101 mg/dL (70-110)
[2021-05-17 07:26] LABS: Anion Gap 0 (5-15); BUN 22 mg/dL (7-18); BUN/Creat Ratio 17.7 RATIO (10-20); Calcium,Total 8.6 mg/dL (8.5-10.1); Chloride 104 mmol/L (98-107); Creatinine, Serum 1.24 mg/dL (0.70-1.30); EST Glomerular Filtration Rate 64 mL/min (>60); Est Glom Filt Rate - Afr Amer 77 mL/min (>60); Glucose 92 mg/dL (74-106); Potassium 3.7 mmol/L (3.5-5.1); Sodium Level 138 mmol/L (136-145); Troponin-I HS 450 pg/mL (3.0-78.0)
[2021-05-17] MEDS: 0.9% Normal Saline 1,000 ML 75 ML IV ×2 (08:26→20:41)
[2021-05-17] MEDS: Midodrine HCl 5 MG Tablet 2.5 MG PO ×2 (08:26→16:57)
[2021-05-17] MEDS: Aspirin 81 MG TAB.CHEW PO (08:26)
[2021-05-17] MEDS: Potassium Chloride Oral Tablet 20 MEQ PO ×2 (08:27→20:34)
[2021-05-17] MEDS: Pantoprazole Sodium 40 MG Tablet PO (08:27)
[2021-05-17] MEDS: Citalopram 40 MG TABLET PO (08:27)
--- NOTE | 2021-05-17 09:13 | PCM.CONS.R ---
Assessment & Plan Assessment/Plan (1) Acute kidney injury: PLAN: Likely due to prerenal event creatinine improved from 3.0 on admission to 1.2 with gentle hydration. He has history of diabetes and hypertension. Renal ultrasound in November 2019 unremarkable. Continue with gentle hydration, minimize dye load for heart catheterization. (2) Non-ST elevated myocardial infarction: PLAN: Cardiology following. Watch for contrast nephropathy following heart catheterization (3) Hypokalemia: PLAN: Continue to replace. (4) Essential (primary) hypertension: (5) Diabetes mellitus type 2 in nonobese: (6) Tobacco dependence: (7) Chronic hepatitis C: (8) History of CVA (cerebrovascular accident): HPI Consult Data Date of Consult: 05/17/21 HPI Narrative HPI Narrative: PATIENCE DEVINE, is a 56 M who presents to [facility] with complaints of increased cough past 2 weeks more than his baseline with shortness of breath. He has a history of lung cancer with chemotherapy in the past. He has a history of tobacco use and alcohol use. He was diagnosed with acute kidney injury with NSTEMI. Creatinine on admission was 3.0 improved to 1.2 today with IV hydration. Troponin was positive. Cardiology was consulted and is tentatively scheduled for heart catheterization on Wednesday. He denied any chest pain or edema. Denied fever or chills. His D-dimer was elevated and VQ scan was low probability for PE. His white count was elevated on admission. He complained of generalized fatigue. Denied any nausea or vomiting or diarrhea. Appetite has been poor. He is on potassium supplements chronically at home. Potassium was low at 3.2 on admission improved to 3.7 with supplementation. He uses a walker at home at baseline. He has chronic tremor as well. He denies any falls at home. Denies any syncope or palpitations. He has been told that he had a heart attack in the past but was asymptomatic with this. He has a history of diabetes on oral agents. Family history significant for diabetes but unaware of kidney problems. 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 Renal ultrasound from November 2019 was essentially unremarkable. [facility] Medical History (Updated 05/17/21 @ 09:[address] Cinthya Moreno DO) Adenocarcinoma of left lung Alcohol abuse Barretts esophagus Carotid stenosis Closed right hip fracture Depression GERD (gastroesophageal reflux disease) History of CVA (cerebrovascular accident) (08/25/19) Hypothyroidism Hypoxia Major depression with psychotic features New onset seizure Non-small cell lung cancer Non-small cell lung cancer Peripheral neuropathy Vitamin D deficiency Home Medications citalopram 40 mg PO DAILY 12/15/16 [History Last Taken 05/14/21] levothyroxine 75 mcg PO DAILY 10/09/19 [History Last Taken 05/14/21] omeprazole 40 mg PO DAILY 10/09/19 [History Last Taken 05/14/21] ergocalciferol (vitamin D2) 50,000 unit PO FR 11/23/19 [History Last Taken 05/09/21] sitagliptin 100 mg PO DAILY 08/14/20 [History Last Taken 05/14/21] melatonin 3 mg PO QHS 10/28/20 [History Last Taken 05/14/21] aspirin 81 mg PO DAILY@0800 12/02/20 [History Last Taken 05/14/21] atorvastatin 40 mg PO DAILY 12/02/20 [History Last Taken 05/14/21] calcium carbonate 500 mg PO BIDCM 12/02/20 [History Last Taken 05/14/21] magnesium chloride 71.5 mg PO BID 12/02/20 [History Last Taken 05/14/21] quetiapine 300 mg PO QHS 12/02/20 [History Last Taken 05/14/21] tamsulosin 0.4 mg PO DAILY@1730 12/02/20 [History Last Taken 05/14/21] midodrine 2.5 mg tablet 2.5 mg PO BID tab 01/08/21 [History Last Taken 05/14/21] fentanyl 25 mcg TRANSDERMAL .Q72H 03/14/21 [History Last Taken 05/13/21] potassium chloride 20 mEq tablet,extended release(part/cryst) 20 meq PO BID tab 04/03/21 [History Last Taken 05/14/21] furosemide 40 mg PO DAILY 05/15/21 [History Last Taken 05/14/21] Allergy/AdvReac Type Severity Reaction Status Date / Time No Known Allergies Allergy Verified 04/03/21 13:13 Family History Father Heart disease Mother Heart disease CAD, Hx CABG. CAD (coronary artery disease) CAD, Hx CABG Diabetes Surgical History History of hemiarthroplasty of right hip History of liver biopsy History of right hip replacement (~11/2019) Social History household members: none Smoking Status: Current every day smoker tobacco type: cigarettes alcohol intake: former details: Patient stated that he quit drinking 6 months ago except did have 2 beers. substance use type: marijuana ROS Constitutional Constitutional: Reports weakness and other Details: no leg edema ; Denies chills or fever(s) ENT HEENT: Denies loss taste/smell Cardiovascular Cardiovascular: Denies chest pain, dyspnea on exertion or leg edema Respiratory/Chest Respiratory/Chest: Reports dry cough, dyspnea on exertion and other Details: chronic SOB, worsening cough past 2 weeks ; Denies wheezing Gastrointestinal Gastrointestinal: Reports anorexia and other Details: decreased oral intake ; Denies abdominal pain, diarrhea, nausea or vomiting Genitourinary Genitourinary: Denies dysuria or flank pain Neurologic Neurologic: Reports tremor(s) and weakness Psychiatric Psychiatric: Reports anxiety Endocrine Endocrinology: Reports fatigue Hematologic/Lymphatic Hematologic/Lymphatic: Reports anemia Physical Exam Const alert, oriented x3 and no apparent distress Eyes PERRL Neck supple Resp clear to auscultation bilaterally Cardio regular rate and no murmurs GI non-tender and non-distended Palpation: soft Bladder / Kidney Exam: catheter in place Extremity no clubbing, cyanosis or edema Skin Skin Narrative: tattoo on arm Neuro Neuro Narrative: mild tremor upper extrem Sensorium / Orientation: awake and alert Psych cooperative Lab / Micro Data Result Diagrams: 05/17/21 06:05 05/17/21 06:05 Labs: Laboratory Results - last 24 hr 05/16/21 11:59: POC Glucose 161 H 05/16/21 16:13: POC Glucose 128 H 05/16/21 21:27: POC Glucose 118 H 05/17/21 06:05: WBC 11.4 H, RBC 4.13 L, Hgb 11.8 L, Hct 37.3 L, MCV 90.3, MCH 28.6, MCHC 31.6 L, RDW Std Deviation 51.6 H, RDW Coeff of Sophie 15.8 H, Plt Count 344, MPV 10.1, Immature Gran % (Auto) 0.500, Neut % (Auto) 83.2 H, Lymph % (Auto) 8.2 L, [place] % (Auto) 6.4, Eos % (Auto) 1.4, Baso % (Auto) 0.3, Absolute Neuts (auto) 9.5 H, Absolute Lymphs (auto) 0.93, Nucleated RBC % 0 05/17/21 06:05: Sodium 138, Potassium 3.7, Chloride 104, Carbon Dioxide 34.0 H, Anion Gap 0 L, BUN 22 H, Creatinine 1.24, Estim Creat Clear Calc 58.60, Est GFR (MDRD) Af Amer 77, Est GFR (MDRD) Non-Af 64, BUN/Creatinine Ratio 17.7, Glucose 92, Calcium 8.6, Troponin I High Sens 450 H* 05/17/21 06:59: POC Glucose 101 Micro: Microbiology 05/16/21 14:40 Mucosa - Nose Respiratory Panel (PCR) - Final Radiology Impression Echocardiogram 05/16/21 15:18 Interpretation Summary Limited TTE for LV wall motion and LV function Evaluation. The estimated ejection fraction is 40-45 %. Moderate LV systolic function Anterosetal Hypokinesia Significant Wall motion abnormalities in comparsion to echo 03/15/2021 Ordering Physician: Lilia Suazo Referring Physician: Zurdo Esparza Performed By: Tennille Middleton, RDCS, RVT
--- NOTE | 2021-05-17 11:31 | PN.CARD_ITS ---
Subjective Subjective Seen and evaluated at bedside along with the nursing staff No symptoms reported. Objective Data Vital Signs: Vital Signs Temp Pulse Resp BP Pulse Ox 98.7 F 96 18 92/64 96 05/17/21 09:30 05/17/21 09:30 05/17/21 09:30 05/17/21 09:30 05/17/21 09:30 Oxygen Flow Rate (L/min) 2 Oxygen Delivery Method Nasal Cannula Weight: 155 lb 10.342 oz Body Mass Index (BMI) 24.3 Intake & Output: Intake and Output for Last 24 Hours 05/15/21 05/16/21 05/17/21 23:59 23:59 23:59 Intake Total 250.23 / 250.23 3116.5 / 3356.5 1240 / 1240 Output Total 900 / 900 1750 / 3600 2800 / 2800 Balance -649.77 / -649.77 1366.5 / -243.5 -1560 / -1560 Lab / Micro Data Result Diagrams: 05/17/21 06:05 05/17/21 06:05 Labs: Laboratory Results - last 24 hr 05/16/21 11:59: POC Glucose 161 H 05/16/21 16:13: POC Glucose 128 H 05/16/21 21:27: POC Glucose 118 H 05/17/21 06:05: WBC 11.4 H, RBC 4.13 L, Hgb 11.8 L, Hct 37.3 L, MCV 90.3, MCH 28.6, MCHC 31.6 L, RDW Std Deviation 51.6 H, RDW Coeff of Sophie 15.8 H, Plt Count 344, MPV 10.1, Immature Gran % (Auto) 0.500, Neut % (Auto) 83.2 H, Lymph % (Auto) 8.2 L, [place] % (Auto) 6.4, Eos % (Auto) 1.4, Baso % (Auto) 0.3, Absolute Neuts (auto) 9.5 H, Absolute Lymphs (auto) 0.93, Nucleated RBC % 0 05/17/21 06:05: Sodium 138, Potassium 3.7, Chloride 104, Carbon Dioxide 34.0 H, Anion Gap 0 L, BUN 22 H, Creatinine 1.24, Estim Creat Clear Calc 58.60, Est GFR (MDRD) Af Amer 77, Est GFR (MDRD) Non-Af 64, BUN/Creatinine Ratio 17.7, Glucose 92, Calcium 8.6, Troponin I High Sens 450 H* 05/17/21 06:59: POC Glucose 101 Micro: Microbiology 05/16/21 14:40 Mucosa - Nose Respiratory Panel (PCR) - Final Cardiology Labs/Tests 05/17/21 06:05: WBC 11.4 H, RBC 4.13 L, Hgb 11.8 L, Hct 37.3 L, MCV 90.3, MCH 28.6, MCHC 31.6 L, Plt Count 344, MPV 10.1, Immature Gran % (Auto) 0.500, Neut % (Auto) 83.2 H, Lymph % (Auto) 8.2 L, [place] % (Auto) 6.4, Eos % (Auto) 1.4, Baso % (Auto) 0.3, Absolute Neuts (auto) 9.5 H, Nucleated RBC % 0 05/17/21 06:05: Sodium 138, Potassium 3.7, Chloride 104, Carbon Dioxide 34.0 H, Anion Gap 0 L, BUN 22 H, Creatinine 1.24, Est GFR (MDRD) Af Amer 77, Est GFR (MDRD) Non-Af 64, BUN/Creatinine Ratio 17.7, Glucose 92, Calcium 8.6 Rhythm: Normal sinus rhythm ECHO: Ejection fraction 40-45% Anteroseptal hypokinesia. Radiography Diagnostic Testing: Radiology Impression Echocardiogram 05/16/21 15:18 Interpretation Summary Limited TTE for LV wall motion and LV function Evaluation. The estimated ejection fraction is 40-45 %. Moderate LV systolic function Anterosetal Hypokinesia Significant Wall motion abnormalities in comparsion to echo 03/15/2021 Ordering Physician: Lilia Suazo Referring Physician: Zurdo Esparza Performed By: Tennille Middleton, ALTHEACS, RVT Physical Exam Narrative Patient alert orientated front desk monitor showed normal sinus rhythm Cardiovascular semination S1-S2 is normal there is no murmur no systolic or diastolic murmur Chest examination clear to auscultation Examination abdomen soft Examination lower extremity no clubbing no lower extremity edema Central nervous system exam no focal neurological deficit. Assessment & Plan Assessment/Plan (1) Diabetes mellitus type 2 in nonobese: (2) Acute respiratory failure with hypoxia: (3) Acute kidney injury: (4) Pericardial effusion without cardiac tamponade: (5) Non-ST elevated myocardial infarction: PLAN: 56-year-old patient who had a history of diabetes, hypertension, tobacco dependence and chronic hep C On this admission he had a history of a fall with discomfort in the right hip area. Has been stable clinically Subsequent evaluation with a series of cardiac biomarker showed evidence of non- ST elevation myocardial infarction. Patient had a clear evidence of segmental wall motion abnormality with anteroseptal hypokinesia With reduced ejection fraction 40-45% in comparison to prior echocardiogram. Cardiovascular system recommendation; 1. Renal function improving the creatinine today is 1.24 We will continue gentle hydration and will plan for limited contrast with cardiac catheterization on Wednesday To minimize risk of contrast-induced nephropathy 2. Patient is stable hemodynamically with trending troponin I high sensitive to 450
[2021-05-17 11:41] LABS: Bedside Glucose 141 mg/dL (70-110)
[2021-05-17] MEDS: Ipratropium/Albuterol Sulfate 3 ML AMPUL.NEB INHALATION ×2 (15:20→19:44)
--- NOTE | 2021-05-17 15:41 | PCM.PN.HOSP ---
Subjective Subjective Doing well, no issues overnight. Denies any chest pain or shortness of breath Objective Data Objective Data Vital Signs: Vital Signs Temp Pulse Resp BP Pulse Ox 98.2 F 84 18 99/70 98 05/17/21 11:45 05/17/21 15:07 05/17/21 11:45 05/17/21 11:45 05/17/21 11:45 Oxygen Flow Rate (L/min) 2 Oxygen Delivery Method Nasal Cannula Weight: 155 lb 10.342 oz Body Mass Index (BMI) 24.3 Intake & Output: Intake and Output for Last 24 Hours 05/16/21 05/17/21 05/18/21 03:59 03:59 03:59 Intake Total 250.23 / 250.23 3356.5 / 3356.5 1000 / 1000 Output Total 900 / 900 3600 / 3600 950 / 950 Balance -649.77 / -649.77 -243.5 / -243.5 50 / 50 Lab / Micro Data Result Diagrams: 05/17/21 06:05 05/17/21 06:05 Labs: Laboratory Results - last 24 hr 05/16/21 16:13: POC Glucose 128 H 05/16/21 21:27: POC Glucose 118 H 05/17/21 06:05: WBC 11.4 H, RBC 4.13 L, Hgb 11.8 L, Hct 37.3 L, MCV 90.3, MCH 28.6, MCHC 31.6 L, RDW Std Deviation 51.6 H, RDW Coeff of Sophie 15.8 H, Plt Count 344, MPV 10.1, Immature Gran % (Auto) 0.500, Neut % (Auto) 83.2 H, Lymph % (Auto) 8.2 L, [place] % (Auto) 6.4, Eos % (Auto) 1.4, Baso % (Auto) 0.3, Absolute Neuts (auto) 9.5 H, Absolute Lymphs (auto) 0.93, Nucleated RBC % 0 05/17/21 06:05: Sodium 138, Potassium 3.7, Chloride 104, Carbon Dioxide 34.0 H, Anion Gap 0 L, BUN 22 H, Creatinine 1.24, Estim Creat Clear Calc 58.60, Est GFR (MDRD) Af Amer 77, Est GFR (MDRD) Non-Af 64, BUN/Creatinine Ratio 17.7, Glucose 92, Calcium 8.6, Troponin I High Sens 450 H* 05/17/21 06:59: POC Glucose 101 05/17/21 11:32: POC Glucose 141 H Micro: Microbiology 05/16/21 14:40 Mucosa - Nose Respiratory Panel (PCR) - Final 05/15/21 12:18 Nasal Secretion SARS-CoV-2 Antigen (Rapid) - Final Radiography Diagnostic Testing: Radiology Impression Echocardiogram 05/16/21 15:18 Interpretation Summary Limited TTE for LV wall motion and LV function Evaluation. The estimated ejection fraction is 40-45 %. Moderate LV systolic function Anterosetal Hypokinesia Significant Wall motion abnormalities in comparsion to echo 03/15/2021 Ordering Physician: Lilia Suazo Referring Physician: Zurdo Esparza Performed By: Tennille Middleton, LOREN, RVT Physical Exam Const alert, oriented x3 and no apparent distress General Appearance: cooperative HEENT normocephalic and moist oral mucous membranes Eyes PERRL, EOMs intact bilaterally and conjunctivae normal Neck supple and no JVD Resp normal respiratory effort, no retractions, no use of accessory muscles and clear to auscultation bilaterally Auscultation: Negative for crackles, rales, rhonchi or wheezes Cardio regular rate, regular rhythm, S1 normal heart sound, S2 normal heart sound and no murmurs GI soft to palpation, non-tender and non-distended; Negative for hepatosplenomegaly Extremity no clubbing, cyanosis or edema Skin no rashes or lesions noted Neuro no focal motor deficits and no sensory deficits noted Psych affect normal Appearance: appropriate Assessment & Plan Assessment/Plan (1) Acute respiratory failure with hypoxia: (2) Acute kidney injury: (3) Non-ST elevated myocardial infarction: (4) Contusion of hip, right: PLAN: 1. Elevated D-dimer with an EVERARDO due to urinary retention and elevated troponin/acute hypoxic respiratory failure/HLD/history of CVA -He has had multiple echoes within the last year -Troponins peaked at 1200, will consult cardiology for evaluation if he may need a cath as an outpatient in the near future -VQ scan was negative for PE -He does have a history of diastolic CHF, therefore will provide gentle IV hydration for this kidney -Recent history of bilateral pleural effusions -Continue with aspirin and statin -Bladder scan showed urinary retention of about 900 cc, he was straight cathed x1 and then had to have a Meza placed -Respiratory panel was unremarkable -EF is slightly reduced to 40-45% and there is some anterior septal hypokinesia, plan will be for heart cath on Wednesday 2. Fall -Unsure as to the etiology could be related to the multiple melatonin she took last night -X-ray of the hip is negative for fracture 3. DM2 -We will hold his home medications and place him on insulin -Accu-Cheks AC at bedtime make adjustments as necessary 4. Hypothyroidism -Stable -Continue with Synthroid 5. Anxiety/depression/chronic pain syndrome -Stable -Continue with home meds 6. GERD -Stable -Continue with PPI 7. BPH -Stable -Continue with Flomax DVT: Heparin Charges/Coding Visit Charges Inpatient E&M: 07598 Subs Hosp L2
[2021-05-17 17:06] LABS: Bedside Glucose 106 mg/dL (70-110)
[2021-05-17] MEDS: Tamsulosin HCl 0.4 MG Capsule PO (17:11)
[2021-05-17] MEDS: Insulin Lispro 100 UNIT/ML INSULN.PEN SC (20:33)
[2021-05-17] MEDS: Carvedilol 3.125 MG TABLET PO (20:33)
[2021-05-17] MEDS: MELATONIN 3 MG TABLET PO (20:34)
[2021-05-17] MEDS: Atorvastatin Calcium 40 MG Tablet PO (20:34)
[2021-05-17] MEDS: QUEtiapine 100 MG Tablet 300 MG PO (20:35)
[2021-05-17 21:11] LABS: Bedside Glucose 152 mg/dL (70-110)
[2021-05-18] VITALS (14 sets, daily range): BP systolic 99–133; BP diastolic 63–82; PULSE 75–96; RESP 14–20; TEMP 36.7–36.9; O2SAT 91–97
[2021-05-18] MEDS: Heparin Injection (Vial) 5,000 UNIT/ML VIAL 5000 UNIT SC ×3 (06:31→23:02)
[2021-05-18] MEDS: Levothyroxine 75 MCG Tablet PO (06:32)
[2021-05-18] MEDS: Ipratropium/Albuterol Sulfate 3 ML AMPUL.NEB INHALATION ×4 (06:42→20:09)
[2021-05-18 06:46] LABS: Bedside Glucose 101 mg/dL (70-110)
[2021-05-18 06:54] LABS: Absolute Lymphocyte Count 0.84 X10^3/uL (0.83-4.51); Absolute Neutrophil Count 5.4 X10^3/uL (2.0-7.7); Basophil# 0.04 X10^3/uL; Basophil% 0.6 % (0-1); Eosinophil# 0.24 X10^3/uL; Eosinophils% 3.4 % (0-5); Hematocrit 39.3 % (40-54); Hemoglobin 12.3 g/dL (13.0-16.5); Lymphocyte # 0.84 X10^3/ul (0.83-4.51); Lymphocyte % 11.8 % (19-41); Mean Corp Hgb Conc 31.3 g/dL (32-36); Mean Corpuscular Hgb 28.3 pg (27.0-32.0); Mean Corpuscular Volume 90.6 fL (80-94); Monocyte# 0.55 X10^3/uL; Monocyte% 7.7 % (0-10); NRBC Flagged by Analyzer 0 % (0-5); Neutrophil # 5.42 X10^3/uL (2.7-7.7); Neutrophil % 75.9 % (47-70); Platelet Count 354 K/mm3 (150-450); RBC Distribution Width CV 15.9 % (11.6-14.6); RBC Distribution Width SD 53.1 fl (35.1-43.9); Red Blood Count 4.34 M/mm3 (4.6-6.2); White Blood Count 7.1 K/mm3 (4.4-11.0)
[2021-05-18 07:14] LABS: Anion Gap 1 (5-15); BUN 15 mg/dL (7-18); BUN/Creat Ratio 11.8 RATIO (10-20); Calcium,Total 8.8 mg/dL (8.5-10.1); Chloride 103 mmol/L (98-107); Creatinine, Serum 1.27 mg/dL (0.70-1.30); EST Glomerular Filtration Rate 62 mL/min (>60); Est Glom Filt Rate - Afr Amer 75 mL/min (>60); Estimated Creatinine Clearance 57.21 ml/min; Glucose 103 mg/dL (74-106); Potassium 4.1 mmol/L (3.5-5.1); Sodium Level 139 mmol/L (136-145)
--- NOTE | 2021-05-18 07:31 | NURSING ---
all documentation completed by Mara LINARES reviewed by this RN
[2021-05-18] MEDS: Potassium Chloride Oral Tablet 20 MEQ PO ×2 (08:47→22:41)
[2021-05-18] MEDS: Carvedilol 3.125 MG TABLET PO ×2 (08:47→22:40)
[2021-05-18] MEDS: Aspirin 81 MG TAB.CHEW PO (08:48)
[2021-05-18] MEDS: Pantoprazole Sodium 40 MG Tablet PO (08:48)
[2021-05-18] MEDS: Citalopram 40 MG TABLET PO (08:48)
[2021-05-18] MEDS: Midodrine HCl 5 MG Tablet 2.5 MG PO ×2 (08:48→16:35)
[2021-05-18] MEDS: 0.9% Normal Saline 1,000 ML 75 ML IV ×2 (10:03→22:58)
--- NOTE | 2021-05-18 10:17 | PN.HOSP_ITS ---
Subjective Subjective Doing well, denies any chest pain or shortness of breath. Feels much better today. Still awaiting heart cath in the morning. Objective Data Objective Data Vital Signs: Vital Signs Temp Pulse Resp BP Pulse Ox 98.4 F 75 16 113/63 92 05/18/21 08:44 05/18/21 08:44 05/18/21 08:44 05/18/21 08:44 05/18/21 08:44 Oxygen Flow Rate (L/min) 2 Oxygen Delivery Method Nasal Cannula Weight: 155 lb 10.342 oz Body Mass Index (BMI) 24.3 Intake & Output: Intake and Output for Last 24 Hours 05/17/21 05/18/21 05/19/21 03:59 03:59 03:59 Intake Total 3356.5 / 3356.5 2638.75 / 2638.75 1000 / 1000 Output Total 3600 / 3600 3700 / 3700 100 / 100 Balance -243.5 / -243.5 -1061.25 / -1061.25 900 / 900 Lab / Micro Data Result Diagrams: 05/18/21 06:15 05/18/21 06:15 Labs: Laboratory Results - last 24 hr 05/17/21 11:32: POC Glucose 141 H 05/17/21 16:53: POC Glucose 106 05/17/21 20:31: POC Glucose 152 H 05/18/21 06:15: WBC 7.1, RBC 4.34 L, Hgb 12.3 L, Hct 39.3 L, MCV 90.6, MCH 28.3, MCHC 31.3 L, RDW Std Deviation 53.1 H, RDW Coeff of Sophie 15.9 H, Plt Count 354, MPV 10.0, Immature Gran % (Auto) 0.600, Neut % (Auto) 75.9 H, Lymph % (Auto) 11.8 L, [place] % (Auto) 7.7, Eos % (Auto) 3.4, Baso % (Auto) 0.6, Absolute Neuts (auto) 5.4, Absolute Lymphs (auto) 0.84, Nucleated RBC % 0 05/18/21 06:15: Sodium 139, Potassium 4.1, Chloride 103, Carbon Dioxide 35.0 H, Anion Gap 1 L, BUN 15, Creatinine 1.27, Estim Creat Clear Calc 57.21, Est GFR (MDRD) Af Amer 75, Est GFR (MDRD) Non-Af 62, BUN/Creatinine Ratio 11.8, Glucose 103, Calcium 8.8 05/18/21 06:26: POC Glucose 101 Micro: Microbiology 05/16/21 14:40 Mucosa - Nose Respiratory Panel (PCR) - Final 05/15/21 12:18 Nasal Secretion SARS-CoV-2 Antigen (Rapid) - Final Physical Exam Const alert, oriented x3 and no apparent distress General Appearance: cooperative HEENT normocephalic and moist oral mucous membranes Eyes PERRL, EOMs intact bilaterally and conjunctivae normal Neck supple and no JVD Resp normal respiratory effort, no retractions, no use of accessory muscles and clear to auscultation bilaterally Auscultation: Negative for crackles, rales, rhonchi or wheezes Cardio regular rate, regular rhythm, S1 normal heart sound, S2 normal heart sound and no murmurs GI soft to palpation, non-tender and non-distended; Negative for hepatosplenomegaly Extremity no clubbing, cyanosis or edema Skin no rashes or lesions noted Neuro no focal motor deficits and no sensory deficits noted Psych affect normal Appearance: appropriate Assessment & Plan Assessment/Plan (1) Acute respiratory failure with hypoxia: (2) Acute kidney injury: (3) Non-ST elevated myocardial infarction: (4) Contusion of hip, right: PLAN: 1. Elevated D-dimer with an EVERARDO due to urinary retention and elevated tro ponin/acute hypoxic respiratory failure/HLD/history of CVA -He has had multiple echoes within the last year -Troponins peaked at 1200, he had a slight reduction in EF troponin has now reduced significantly about 450 yesterday -VQ scan was negative for PE -He does have a history of diastolic CHF, therefore will provide gentle IV hydration for this kidney -Recent history of bilateral pleural effusions -Continue with aspirin and statin -Bladder scan showed urinary retention of about 900 cc, he was straight cathed x1 and then had to have a Meza placed -Respiratory panel was unremarkable -EF is slightly reduced to 40-45% and there is some anterior septal hypokinesia, plan will be for heart cath on Wednesday 2. Fall -Unsure as to the etiology could be related to the multiple melatonin she took l ast night -X-ray of the hip is negative for fracture 3. DM2 -We will hold his home medications and place him on insulin -Accu-Cheks AC at bedtime make adjustments as necessary 4. Hypothyroidism -Stable -Continue with Synthroid 5. Anxiety/depression/chronic pain syndrome -Stable -Continue with home meds 6. GERD -Stable -Continue with PPI 7. BPH -Stable -Continue with Flomax DVT: Heparin Charges/Coding Visit Charges Inpatient E&M: 23900 Subs Hosp L2
[2021-05-18 11:55] LABS: Bedside Glucose 112 mg/dL (70-110)
--- NOTE | 2021-05-18 13:20 | PCM.PN.CARD ---
Subjective Subjective Seen and evaluated today at bedside Comfortable no symptoms reported. Objective Data Vital Signs: Vital Signs Temp Pulse Resp BP Pulse Ox 98.4 F 84 20 H 113/63 92 05/18/21 08:44 05/18/21 10:50 05/18/21 10:50 05/18/21 08:44 05/18/21 08:44 Oxygen Flow Rate (L/min) 2 Oxygen Delivery Method Nasal Cannula Weight: 155 lb 10.342 oz Body Mass Index (BMI) 24.3 Intake & Output: Intake and Output for Last 24 Hours 05/16/21 05/17/21 05/18/21 23:59 23:59 23:59 Intake Total 3116.5 / 3356.5 2878.75 / 2878.75 1000 / 1000 Output Total 1750 / 3600 4350 / 5550 1300 / 1300 Balance 1366.5 / -243.5 -1471.25 / -2671.25 -300 / -300 Lab / Micro Data Result Diagrams: 05/18/21 06:15 05/18/21 06:15 Labs: Laboratory Results - last 24 hr 05/17/21 16:53: POC Glucose 106 05/17/21 20:31: POC Glucose 152 H 05/18/21 06:15: WBC 7.1, RBC 4.34 L, Hgb 12.3 L, Hct 39.3 L, MCV 90.6, MCH 28.3, MCHC 31.3 L, RDW Std Deviation 53.1 H, RDW Coeff of Sophie 15.9 H, Plt Count 354, MPV 10.0, Immature Gran % (Auto) 0.600, Neut % (Auto) 75.9 H, Lymph % (Auto) 11.8 L, [place] % (Auto) 7.7, Eos % (Auto) 3.4, Baso % (Auto) 0.6, Absolute Neuts (auto) 5.4, Absolute Lymphs (auto) 0.84, Nucleated RBC % 0 05/18/21 06:15: Sodium 139, Potassium 4.1, Chloride 103, Carbon Dioxide 35.0 H, Anion Gap 1 L, BUN 15, Creatinine 1.27, Estim Creat Clear Calc 57.21, Est GFR (MDRD) Af Amer 75, Est GFR (MDRD) Non-Af 62, BUN/Creatinine Ratio 11.8, Glucose 103, Calcium 8.8 05/18/21 06:26: POC Glucose 101 05/18/21 11:50: POC Glucose 112 H Cardiology Labs/Tests 05/18/21 06:15: WBC 7.1, RBC 4.34 L, Hgb 12.3 L, Hct 39.3 L, MCV 90.6, MCH 28.3, MCHC 31.3 L, Plt Count 354, MPV 10.0, Immature Gran % (Auto) 0.600, Neut % (Auto) 75.9 H, Lymph % (Auto) 11.8 L, [place] % (Auto) 7.7, Eos % (Auto) 3.4, Baso % (Auto) 0.6, Absolute Neuts (auto) 5.4, Nucleated RBC % 0 05/18/21 06:15: Sodium 139, Potassium 4.1, Chloride 103, Carbon Dioxide 35.0 H, Anion Gap 1 L, BUN 15, Creatinine 1.27, Est GFR (MDRD) Af Amer 75, Est GFR (MDRD) Non-Af 62, BUN/Creatinine Ratio 11.8, Glucose 103, Calcium 8.8 Rhythm: Normal sinus rhythm Physical Exam Narrative Review of telemetry normal sinus rhythm Cardiovascular examination S1-S2 is regular, no systolic or diastolic murmur Chest examination clear to auscultation bilateral. Examination abdomen soft Examination lower extremity no clubbing no cyanosis no lower extremity edema. Assessment & Plan Assessment/Plan (1) Acute respiratory failure with hypoxia: (2) History of CVA (cerebrovascular accident): (3) Essential (primary) hypertension: (4) Tobacco dependence: (5) Chronic narcotic use: (6) Chronic hepatitis C: (7) Non-ST elevated myocardial infarction: PLAN: 56-year-old patient with the clinical diagnosis of non-ST elevation [place] He has reduced LV systolic function by echocardiogram ejection fraction in the range of 40-45% with anteroseptal hypokinesia. Patient with a multiple risk factor for CAD with tobacco dependence also had a history of chronic hepatitis C. Cardiac assessment recommendation; 1. Patient currently on medical therapy and has been stable clinically Has elevated troponins in the range of 400, no active symptoms of chest pain 2. Recommended to evaluate further with left heart catheterization/set up for tomorrow by Dr. Watts
[2021-05-18] MEDS: Tamsulosin HCl 0.4 MG Capsule PO (16:35)
[2021-05-18 16:46] LABS: Bedside Glucose 100 mg/dL (70-110)
[2021-05-18] MEDS: QUEtiapine 100 MG Tablet 300 MG PO (22:38)
[2021-05-18] MEDS: MELATONIN 3 MG TABLET PO (22:39)
[2021-05-18] MEDS: Atorvastatin Calcium 40 MG Tablet PO (22:40)
[2021-05-19] VITALS (16 sets, daily range): BP systolic 104–127; BP diastolic 60–85; PULSE 71–91; RESP 16–18; TEMP 36.4–36.8; O2SAT 79–100
[2021-05-19 00:36] LABS: Bedside Glucose 126 mg/dL (70-110)
--- NOTE | 2021-05-19 05:30 | EKG12_ITS ---
Test Reason : AM EKG Blood Pressure : / mmHG Vent. Rate : 082 BPM Atrial Rate : 082 BPM P-R Int : 154 ms QRS Dur : 082 ms QT Int : 394 ms P-R-T Axes : 039 065 054 degrees QTc Int : 460 ms Normal sinus rhythm Normal ECG When compared with ECG of 15-MAY-2021 16:09, MANUAL COMPARISON REQUIRED, DATA IS UNCONFIRMED Confirmed by SHANIA BINGHAM, SUKUMAR ([id number]), website/blog editor REED FLORES ([id number]) on 05/20/2021 11:21:17 AM Referred By: JIHAN Confirmed By:SUKUMAR JAUREGUI MD
[2021-05-19] MEDS: Aspirin 81 MG TAB.CHEW PO (06:08)
[2021-05-19] MEDS: Levothyroxine 75 MCG Tablet PO (06:08)
[2021-05-19] MEDS: Carvedilol 3.125 MG TABLET PO (06:08)
[2021-05-19 06:41] LABS: Bedside Glucose 99 mg/dL (70-110)
[2021-05-19 07:45] LABS: Anion Gap 3 (5-15); BUN 23 mg/dL (7-18); BUN/Creat Ratio 21.7 RATIO (10-20); Calcium,Total 9.2 mg/dL (8.5-10.1); Chloride 100 mmol/L (98-107); Creatinine, Serum 1.06 mg/dL (0.70-1.30); EST Glomerular Filtration Rate 76 mL/min (>60); Est Glom Filt Rate - Afr Amer 92 mL/min (>60); Estimated Creatinine Clearance 68.55 ml/min; Glucose 101 mg/dL (74-106); Potassium 4.2 mmol/L (3.5-5.1); Sodium Level 136 mmol/L (136-145)
[2021-05-19] MEDS: Midodrine HCl 5 MG Tablet 2.5 MG PO (09:12)
[2021-05-19] MEDS: Citalopram 40 MG TABLET PO (09:12)
[2021-05-19] MEDS: Pantoprazole Sodium 40 MG Tablet PO (09:12)
[2021-05-19] MEDS: Potassium Chloride Oral Tablet 20 MEQ PO (09:13)
--- NOTE | 2021-05-19 09:34 | PN.CARD_ITS ---
Subjective Subjective The patient underwent diagnostic cardiac catheterization earlier this morning without obvious adverse event. Objective Data Vital Signs: Vital Signs Temp Pulse Resp BP Pulse Ox 97.6 F L 76 18 105/68 94 05/19/21 09:15 05/19/21 09:15 05/19/21 09:15 05/19/21 09:15 05/19/21 09:15 Oxygen Flow Rate (L/min) 2 Oxygen Delivery Method Nasal Cannula Weight: 155 lb 10.342 oz Body Mass Index (BMI) 24.3 Intake & Output: Intake and Output for Last 24 Hours 05/17/21 05/18/21 05/19/21 23:59 23:59 23:59 Intake Total 2878.75 / 2878.75 2928.75 / 3048.75 120 / 120 Output Total 4350 / 5550 2950 / 3250 2375 / 2375 Balance -1471.25 / -2671.25 -21.25 / -201.25 -2255 / -2255 Lab / Micro Data Result Diagrams: 05/18/21 06:15 05/19/21 06:35 Labs: Laboratory Results - last 24 hr 05/18/21 11:50: POC Glucose 112 H 05/18/21 16:34: POC Glucose 100 05/18/21 22:47: POC Glucose 126 H 05/19/21 06:05: POC Glucose 99 05/19/21 06:35: Sodium 136, Potassium 4.2, Chloride 100, Carbon Dioxide 33.0 H, Anion Gap 3 L, BUN 23 H, Creatinine 1.06, Estim Creat Clear Calc 68.55, Est GFR (MDRD) Af Amer 92, Est GFR (MDRD) Non-Af 76, BUN/Creatinine Ratio 21.7 H, Glucose 101, Calcium 9.2 Cardiology Labs/Tests 05/19/21 06:35: Sodium 136, Potassium 4.2, Chloride 100, Carbon Dioxide 33.0 H, Anion Gap 3 L, BUN 23 H, Creatinine 1.06, Est GFR (MDRD) Af Amer 92, Est GFR (MDRD) Non-Af 76, BUN/Creatinine Ratio 21.7 H, Glucose 101, Calcium 9.2 Rhythm: Sinus rhythm EKG: Sinus rhythm; compared to previous ECGs the previous T wave change appears to be returning to baseline ECHO: Interpretation Summary Limited TTE for LV wall motion and LV function Evaluation. The estimated ejection fraction is 40-45 %. Moderate LV systolic function Anterosetal Hypokinesia Significant Wall motion abnormalities in comparsion to echo 03/15/2021 Cardiac Cath: CONCLUSIONS Normal Left Ventricular End Diastolic Pressure Normal LV size, wall motion,and systolic function LVEF: by LV gram 60 % Single vessel CAD of the RCA: mild luminal irregularities RECOMMENDATIONS Risk factor modification Medical therapy DESCRIPTION OF PROCEDURE The patient arrived to the procedure lab. The risks and benefits of the procedure as well as a full description of our services here and current unavailability of surgical backup were fully explained to the patient and/or their significant other prior to the catheterization. The Timeout was completed, verifying the correct patient and procedure. The patient's procedural site was prepped and draped in the usual fashion. Local anesthetic was given subcutaneously to right radial region with Lidocaine 2%. Using a modified Seldinger technique, arterial access was obtained via the right radial artery, a 6Fr sheath was inserted. Left Coronary Artery selective angiography was performed in multiple views using a 5 Fr. 4.0 Bowman catheter. Right Coronary Artery selective angiography was then performed in multiple views using a 5 Fr. 4.0 Bowman catheter. Left Ventriculography was performed in CARRILLO projection using a 5 Fr. Pigtail catheter. LV to AO pullback pressures were then recorded.The arterial sheath was pulled and a TR Band was applied for hemostasis CORONARY ANGIOGRAPHY DOMINANCE: Right Dominant LEFT HEART ASSESSMENT Left Ventricular Ejection Fraction: by LV Gram 60 % Normal LV wall motion Normal Left Ventricular End Diastolic Pressure LVEDP: 3 mmHg LEFT MAIN: Angiographically normal LEFT ANTERIOR DESCENDING ARTERY: Angiographically normal CIRCUMFLEX ARTERY: Angiographically normal RAMUS: Angiographically normal RIGHT CORONARY ARTERY: PROX RCA: Mild luminal irregularities AORTIC ROOT: Angiographically normal Physical Exam Const alert, oriented x3, no apparent distress and average body habitus HEENT normocephalic, head/scalp atraumatic, hearing grossly normal bilaterally, external ears normal and external nose normal Eyes PERRL, EOMs intact bilaterally, conjunctivae normal and no scleral icterus Neck full ROM, no lymphadenopathy, supple and no JVD Chest inspection of chest normal Resp Auscultation: diminished lung sounds bilateral Cardio regular rate, regular rhythm, S1 normal heart sound and S2 normal heart sound GI normal to inspection, nondistended, normoactive bowel sounds, soft to palpation, non-tender and non-distended Extremity normal to inspection and normal capillary refill Neuro oriented x3, CN's II-XII intact bilaterally and moves all extremities Assessment & Plan Assessment/Plan (1) Non-ST elevated myocardial infarction: PLAN: The patient has findings compatible with a non-ST segment elevation KS. He underwent evaluation with ECG and echocardiogram as noted. He has now undergone evaluation with diagnostic cardiac catheterization. He did not appear to have angiographically significant appearing CAD. His overall LV systolic function appeared to be preserved. The etiology of his noninvasive changes is somewhat unclear at this time, however, it does not appear he has had a type I event, and thus it appears he has had a type II event potentially from his noncardiovascular issues including his underlying pulmonary issues and concerns of respiratory failure/hypoxemia. From a cardiac standpoint he will continue medical therapy as deemed appropriate. (2) Essential (primary) hypertension: PLAN: His blood pressures been noted to be low at times. His medications will be adjusted accordingly. (3) Acute respiratory failure with hypoxia: PLAN: He will continue evaluation care for his underlying pulmonary issues by internal medicine and pulmonology/critical care medicine as deemed a ppropriate. Addt'l Comments The patient's information has been conveyed to Dr. Keller of the [facility] hospitalist group. This note was generated using a voice recognition system and there may be incorrect words, spelling or punctuation that were not noted when reviewing the office note prior to saving.
--- NOTE | 2021-05-19 09:34 | CL.D_ITS ---
Patient Name: PATIENCE DEVINE Study Date: 05/19/2021 Performing: Justus Watts MD Ht: 67 inches 170 cm : 1965 Wt: 156.7 lbs 71 kg Age: 56 Gender: male BSA: 1.82 PROCEDURE(S) PERFORMED OT12-MBI/COR/LV CLINICAL PROFILE AND INDICATIONS Indications: ACS > 24 hrs, Suspected CAD Heart Failure: None Stress/Imaging Stress/Image Study Performed: No Angina Classification Anginal Classification w/in 2 Weeks: CCS IV CAD Presentations: Non-STEMI. CONCLUSIONS Normal Left Ventricular End Diastolic Pressure Normal LV size, wall motion,and systolic function LVEF: by LV gram 60 % Single vessel CAD of the RCA: mild luminal irregularities RECOMMENDATIONS Risk factor modification Medical therapy DESCRIPTION OF PROCEDURE The patient arrived to the procedure lab. The risks and benefits of the procedure as well as a full d escription of our services here and current unavailability of surgical backup were fully explained to the patient and/or their significant other prior to the catheterization. The Timeout was completed, verifying the correct patient and procedure. The patient's procedural site was prepped and draped in the usual fashion. Local anesthetic was given subcutaneously to right radial region with Lidocaine 2% . Using a modified Seldinger technique, arterial access was obtained via the right radial artery, a 6 Fr sheath was inserted. Left Coronary Artery selective angiography was performed in multiple views u sing a 5 Fr. 4.0 Whiting catheter. Right Coronary Artery selective angiography was then performed in mu ltiple views using a 5 Fr. 4.0 Whiting catheter. Left Ventriculography was performed in CARRILLO projection using a 5 Fr. Pigtail catheter. LV to AO pullback pressures were then recorded.The arterial sheath was pulled and a TR Band was applied for hemostasis CORONARY ANGIOGRAPHY DOMINANCE: Right Dominant LEFT HEART ASSESSMENT Left Ventricular Ejection Fraction: by LV Gram 60 % Normal LV wall motion Normal Left Ventricular End Diastolic Pressure LVEDP: 3 mmHg LEFT MAIN: Angiographically normal LEFT ANTERIOR DESCENDING ARTERY: Angiographically normal CIRCUMFLEX ARTERY: Angiographically normal RAMUS: Angiographically normal RIGHT CORONARY ARTERY: PROX RCA: Mild luminal irregularities AORTIC ROOT: Angiographically normal COMPLICATIONS No Complications PROCEDURE MEDICATIONS Versed 1 mg IV Oxygen: 2 L/min via nasal cannula Heparin given IA 05/19/2021 08:33:16 Verapamil 2.5mg, Ntg 100mcgs, 3000 units of Heparin given IA 05/19/2021 08:33:16 IV Bolus: .9 NaCl 300 ml total 05/19/2021 08:46:10 SUMMARY OF HEMODYNAMIC DATA Time AIR REST ECG 08:01:20 Art 106/46 (64) 08:17:53 AO 70/47 (58) SA 08:34:41 LV 103/-21, 5 08:39:42 LV 100/-21, 3 08:39:48 LV 100/-13, 6 08:40:39 LV 103/-20, 6 08:40:46 LVp 104/-18, 4 08:40:51 AOp 95/48 (68) 08:40:56 Signed By Justus Watts MD On 05/19/2021 09:33:54 Justus Watts MD
--- NOTE | 2021-05-19 10:52 | PN.HOSP_ITS ---
Subjective Subjective Doing well, no issues overnight. Underwent his heart cath today which was unremarkable from a coronary artery disease standpoint. He will need to follow- up with cardiology on discharge Objective Data Objective Data Vital Signs: Vital Signs Temp Pulse Resp BP Pulse Ox 97.6 F L 77 18 119/74 94 05/19/21 10:30 05/19/21 10:30 05/19/21 10:30 05/19/21 10:30 05/19/21 10:30 Oxygen Flow Rate (L/min) [ 2 AMBULATING with Oxygen #1] Oxygen Flow Rate (L/min) [At 2 REST with Oxygen] Oxygen Flow Rate (L/min) 2 Oxygen Delivery Method Nasal Cannula Weight: 155 lb 10.342 oz Body Mass Index (BMI) 24.3 Intake & Output: Intake and Output for Last 24 Hours 05/18/21 05/19/21 05/20/21 03:59 03:59 03:59 Intake Total 2638.75 / 2638.75 3048.75 / 3048.75 880 / 880 Output Total 3700 / 3700 2049 / 2049 2074 / 2074 Balance -1061.25 / -1061.25 998.75 / 998.75 -1195 / -1195 Lab / Micro Data Result Diagrams: 05/18/21 06:15 05/19/21 06:35 Labs: Laboratory Results - last 24 hr 05/18/21 11:50: POC Glucose 112 H 05/18/21 16:34: POC Glucose 100 05/18/21 22:47: POC Glucose 126 H 05/19/21 06:05: POC Glucose 99 05/19/21 06:35: Sodium 136, Potassium 4.2, Chloride 100, Carbon Dioxide 33.0 H, Anion Gap 3 L, BUN 23 H, Creatinine 1.06, Estim Creat Clear Calc 68.55, Est GFR (MDRD) Af Amer 92, Est GFR (MDRD) Non-Af 76, BUN/Creatinine Ratio 21.7 H, Glucose 101, Calcium 9.2 Micro: Microbiology 05/16/21 14:40 Mucosa - Nose Respiratory Panel (PCR) - Final 05/15/21 12:18 Nasal Secretion SARS-CoV-2 Antigen (Rapid) - Final Physical Exam Const alert, oriented x3 and no apparent distress General Appearance: cooperative HEENT normocephalic and moist oral mucous membranes Eyes PERRL, EOMs intact bilaterally and conjunctivae normal Neck supple and no JVD Resp normal respiratory effort, no retractions, no use of accessory muscles and clear to auscultation bilaterally Auscultation: Negative for crackles, rales, rhonchi or wheezes Cardio regular rate, regular rhythm, S1 normal heart sound, S2 normal heart sound and no murmurs GI soft to palpation, non-tender and non-distended; Negative for hepatosplenomegaly Extremity no clubbing, cyanosis or edema Skin no rashes or lesions noted Neuro no focal motor deficits and no sensory deficits noted Psych affect normal Appearance: appropriate Assessment & Plan Assessment/Plan (1) Acute respiratory failure with hypoxia: (2) Acute kidney injury: (3) Non-ST elevated myocardial infarction: (4) Contusion of hip, right: PLAN: 1. Elevated D-dimer with an EVERARDO due to urinary retention and elevated troponin/acute hypoxic respiratory failure/HLD/history of CVA -He has had multiple echoes within the last year -Troponins peaked at 1200, he had a slight reduction in EF troponin has now reduced significantly about 450 yesterday -VQ scan was negative for PE -He does have a history of diastolic CHF, therefore will provide gentle IV hydration for this kidney, he is negative over 2 L for his stay -Recent history of bilateral pleural effusions -Continue with aspirin and statin -Bladder scan showed urinary retention of about 900 cc, he was straight cathed x1 and then had to have a Meza placed -Respiratory panel was unremarkable -EF is slightly reduced to 40-45% and there is some anterior septal hypokinesia, heart cath was unremarkable, will plan to treat him like an NSTEMI and make adjustments to his medications. He will need to follow-up with cardiology as an outpatient in about a month 2. Fall -Unsure as to the etiology could be related to the multiple melatonin she took last night -X-ray of the hip is negative for fracture 3. DM2 -We will hold his home medications and place him on insulin -Accu-Cheks AC at bedtime make adjustments as necessary 4. Hypothyroidism -Stable -Continue with Synthroid 5. Anxiety/depression/chronic pain syndrome -Stable -Continue with home meds 6. GERD -Stable -Continue with PPI 7. BPH -Stable -Continue with Flomax DVT: Heparin Charges/Coding Visit Charges Inpatient E&M: 62413 Subs Hosp L2
[2021-05-19 11:26] LABS: Bedside Glucose 86 mg/dL (70-110)
--- NOTE | 2021-05-19 11:56 | PCM.PN.REN ---
Subjective Subjective underwent heart cath this am. Had LV gram, no PCI intervention needed. Creatinine improved from 3.0 on admit to 1.0 today precath. Objective Data Objective Data Vital Signs: Vital Signs Temp Pulse Resp BP Pulse Ox 97.6 F L 72 18 119/74 99 05/19/21 11:03 05/19/21 11:29 05/19/21 11:03 05/19/21 11:03 05/19/21 11:03 Oxygen Flow Rate (L/min) [ 2 AMBULATING with Oxygen #1] Oxygen Flow Rate (L/min) [At 2 REST with Oxygen] Oxygen Flow Rate (L/min) 99 Oxygen Delivery Method Nasal Cannula Weight: 70.6 kg Body Mass Index (BMI) 24.3 Intake & Output: Intake and Output for Last 24 Hours 05/17/21 05/18/21 05/19/21 23:59 23:59 23:59 Intake Total 2878.75 / 2878.75 2928.75 / 3048.75 1000 / 1000 Output Total 4350 / 5550 2950 / 3250 2375 / 2375 Balance -1471.25 / -2671.25 -21.25 / -201.25 -1375 / -1375 Lab / Micro Data Result Diagrams: 05/18/21 06:15 05/19/21 06:35 Labs: Laboratory Results - last 24 hr 05/18/21 16:34: POC Glucose 100 05/18/21 22:47: POC Glucose 126 H 05/19/21 06:05: POC Glucose 99 05/19/21 06:35: Sodium 136, Potassium 4.2, Chloride 100, Carbon Dioxide 33.0 H, Anion Gap 3 L, BUN 23 H, Creatinine 1.06, Estim Creat Clear Calc 68.55, Est GFR (MDRD) Af Amer 92, Est GFR (MDRD) Non-Af 76, BUN/Creatinine Ratio 21.7 H, Glucose 101, Calcium 9.2 05/19/21 11:17: POC Glucose 86 Micro: Microbiology 05/16/21 14:40 Mucosa - Nose Respiratory Panel (PCR) - Final 05/15/21 12:18 Nasal Secretion SARS-CoV-2 Antigen (Rapid) - Final Physical Exam Const Constitutional Narrative: somnolent Resp clear to auscultation bilaterally Cardio regular rate Extremity no clubbing, cyanosis or edema Assessment & Plan Assessment/Plan (1) Acute kidney injury: PLAN: creatinine 1.0 (2) Non-ST elevated myocardial infarction: PLAN: s/p heart cath with LV gram. 90cc dye used. watch for contrast nephropathy (3) DM2 (diabetes mellitus, type 2): PLAN: stable (4) HTN (hypertension), benign: PLAN: stable
[2021-05-19] MEDS: fentaNYL 25 MCG Patch TD (12:52)
[2021-05-19] MEDS: 0.9% Normal Saline 1,000 ML 50 ML IV (13:39)
[2021-05-19] MEDS: Heparin Injection (Vial) 5,000 UNIT/ML VIAL 5000 UNIT SC (13:39)
--- NOTE | 2021-05-19 14:16 | CASEMGMT ---
Pt's home order for oxygen is 2L nc Continuous and pt does not qualify for increased home oxygen at this time per testing. Call to Diane at [facility] to notify of discharge. Esau LEONG CM
--- NOTE | 2021-05-19 14:38 | DCINST_ITS ---
Discharge Instructions Diet Discharge Diet: Low fat / Low cholesterol and Carb Control Diet Activity Discharge Activity: Return to Normal Activity Dressing / Incision Call your doctor if you observe: Fever of 101 or Higher, Shortness of breath, Dizziness, Fainting spells, Swelling in the ankles, Chest pain and Increased palpitations (irregular heartbeat) Follow Up Care Test Results: Test results from this visit will be discussed in further detail at your follow-up appointment, if applicable. Discharge Plan Admission Admit Date/Time: 05/15/21 13:02 Attending Provider: Dionisio Keller Primary Care Provider: Zurdo Esparza Consulting Providers: Angeline Manjarrez ; Cinthya Moreno Discharge Orders/Prescriptions Prescriptions: New carvedilol 3.125 mg Tablet 3.125 mg PO BID Qty: 60 RF: 0 Continued midodrine 2.5 mg tablet 2.5 mg PO BID RF: 0 potassium chloride 20 mEq tablet,ER particles/crystals 20 meq PO BID RF: 0 citalopram 40 MG tablet 40 mg PO DAILY RF: 0 levothyroxine 75 MCG tablet 75 mcg PO DAILY RF: 0 omeprazole 40 MG capsule,delayed release(DR/EC) 40 mg PO DAILY RF: 0 ergocalciferol (vitamin D2) 50,000 UNIT capsule 50,000 unit PO FR RF: 0 sitagliptin 100 MG tablet 100 mg PO DAILY RF: 0 melatonin 3 MG capsule 3 mg PO QHS RF: 0 atorvastatin 40 MG tablet 40 mg PO DAILY RF: 0 quetiapine 300 MG tablet 300 mg PO QHS RF: 0 tamsulosin 0.4 MG capsule 0.4 mg PO DAILY@1730 RF: 0 calcium carbonate 500 MG tablet,chewable 500 mg PO BIDCM RF: 0 aspirin 81 MG tablet,chewable 81 mg PO DAILY@0800 RF: 0 magnesium chloride 71.5 MG tablet,delayed release (DR/EC) 71.5 mg PO BID RF: 0 fentanyl 25 mcg/hr patch 72 hour 25 mcg transdermal .Q72H RF: 0 Held furosemide 40 mg tablet 40 mg PO DAILY RF: 0 Hold Instructions: Resume on 05/26/21. Other Ambulatory Orders: Basic Metabolic Profile (BMP) (Routine) Timeframe: 2 Days Facility: [facility] - Location: Laboratory Ordered By: Dr. Dionisio Keller Referrals / Follow Up: Palomo Torre MD [STAFF PHYSICIAN] - Within 1 Month Cinthya Moreno DO [STAFF PHYSICIAN] - Within 2 Weeks Julian Jack MD [STAFF PHYSICIAN] - Within 1 Month Dez Gonzalez MD [STAFF PHYSICIAN] - Within 1 Week Zurdo Esparza MD [Primary Care Provider] - Within 1 Week Disposition Disposition (needs filled in before D/C Order can be placed): Home, Self Care
--- NOTE | 2021-05-19 15:12 | NURSING ---
This RN reviewed SN charting
--- NOTE | 2021-05-19 15:30 | PCM.DC.SUM ---
Providers Date of Admission: 05/15/21 Primary Care Physician: Dr. Zurdo Esparza MD Consultations 05/16/21 13:05 Consult: Cardiology Routine Consulting Provider: Angeline Manjarrez Reason for Consult: elevated troponin no chest pain EMERGENT Consult: No Notified: Yes Date Notified: 05/16/21 Time Notified: 13:17 Method of Notification: Text 05/16/21 15:18 Consult: Nephrology Routine Consulting Provider: Cinthya Moreno Reason for Consult: EVERARDO EMERGENT Consult: No Notified: Yes Date Notified: 05/16/21 Time Notified: 15:27 Method of Notification: Text Reason For Visit: RENAL FAILURE, ELEVATED DDIMER AND ELEVATED Diagnosis Discharge Diagnosis (1) Acute kidney injury: Status: Acute Code(s): N17.9 - Acute kidney failure, unspecified (2) Non-ST elevated myocardial infarction: Status: Acute Code(s): I21.4 - Non-ST elevation (NSTEMI) myocardial infarction (3) DM2 (diabetes mellitus, type 2): Status: Acute Code(s): E11.9 - Type 2 diabetes mellitus without complications (4) HTN (hypertension), benign: Status: Acute Code(s): I10 - Essential (primary) hypertension Medications at Discharge Home Medications citalopram 40 mg PO DAILY 12/15/16 levothyroxine 75 mcg PO DAILY 10/09/19 omeprazole 40 mg PO DAILY 10/09/19 ergocalciferol (vitamin D2) 50,000 unit PO FR 11/23/19 sitagliptin 100 mg PO DAILY 08/14/20 melatonin 3 mg PO QHS 10/28/20 aspirin 81 mg PO DAILY@0800 12/02/20 atorvastatin 40 mg PO DAILY 12/02/20 calcium carbonate 500 mg PO BIDCM 12/02/20 magnesium chloride 71.5 mg PO BID 12/02/20 quetiapine 300 mg PO QHS 12/02/20 tamsulosin 0.4 mg PO DAILY@1730 12/02/20 midodrine 2.5 mg tablet 2.5 mg PO BID tab 01/08/21 fentanyl 25 mcg TRANSDERMAL .Q72H 03/14/21 potassium chloride 20 mEq tablet,extended release(part/cryst) 20 meq PO BID tab 04/03/21 furosemide 40 mg PO DAILY 05/15/21 carvedilol 3.125 mg PO BID #60 tab 05/19/21 Hospital Course Operations None Procedures 2-D Echocardiogram and Cardiac catheterization Summary of Care Provided Minutes Spent on Discharge: 45 Hospital Course: Per HPI: PATIENCE DEVINE, is a 56 M who presents to the hospital after a fall. Last night he took 2 doses of melatonin and woke up in the morning and fell onto his hip. He did not pass out or hit his head. He presented to the hospital because of right hip pain. He has had this repaired last year with a hip replacement. X-ray of the hip demonstrated no fracture however on lab work he had white count of 16 and a creatinine of over 3, his most recent creatinine prior to this in March was 1.62. He states that he is urinating just fine and he is drinking well. He denies any significant alcohol intake. He denies any chest pain or significant shortness of breath however he was placed on 2 L nasal cannula in the ER, he was 87% on room air in the ED. Covid antigen test was negative. Chest x-ray was unremarkable and D-dimer was elevated however secondary to his renal function a VQ scan was obtained instead which showed a low probability for PE. Denies any abdominal pain or any skin lesions to explain the white count. Hospital Course: 1. Elevated D-dimer with an EVERARDO due to urinary retention and non-STEMI/acute hypoxic respiratory failure/HLD/history of CVA -He has had multiple echoes within the last year -Troponins peaked at 1200, he had a slight reduction in EF troponin has now reduced significantly about 450 yesterday -VQ scan was low probability for PE -He does have a history of diastolic CHF, therefore will provide gentle IV hydration for this kidney, he is negative over 2 L for his stay -Recent history of bilateral pleural effusions -Continue with aspirin and statin -Bladder scan showed urinary retention of about 900 cc, he was straight cathed x1 and then had to have a Meza placed -Respiratory panel was unremarkable -EF is slightly reduced to 40-45% and there is some anterior septal hypokinesia, heart cath was unremarkable, will plan to treat him like an NSTEMI and make adjustments to his medications with the addition of Coreg. He will need to follow-up with cardiology as an outpatient in about a month -Given that his heart cath was unremarkable, I discussed with him the plan for discharge today he expressed understanding of the risk benefits of going home in 1 to go home today. He did have an ambulatory pulse ox which demonstrated need for 2 L nasal cannula both at rest and with ambulation. He has had need of oxygen in the past and he likely has a history of pulmonary hypertension given his Lasix and the fact that as soon as you turn his oxygen off he desaturated significantly. I do recommend that he follow-up with pulmonology as an outpatient, he will also need to follow-up with cardiology, urology for his Meza and urinary retention, given his EVERARDO he will need to follow-up with nephrology as an outpatient as well. I do asked that he follow-up with his PCP in 3 to 5days for outpatient monitoring, and I did order a BMP in 2 days given the fact that he had a contrast load today which can be followed by home health and related to his PCP. Because of the contrast I also held his Lasix which can be restarted as an outpatient if the BMP is stable on the advice of his physicians. 2. Fall -Unsure as to the etiology could be related to the multiple melatonin she took last night -X-ray of the hip is negative for fracture -PT/OT did not feel like he needed a SNF on discharge 3. DM2 -We will hold his home medications and place him on insulin -Accu-Cheks AC at bedtime make adjustments as necessary 4. Hypothyroidism -Stable -Continue with Synthroid 5. Anxiety/depression/chronic pain syndrome -Stable -Continue with home meds 6. GERD -Stable -Continue with PPI 7. BPH -Stable -Continue with Flomax Weight / BMI Weight Weight: 155 lb 10.342 oz Body Mass Index (BMI) 24.3 ABG / Lab / Microbiology Data Result Diagrams: 05/18/21 06:15 05/19/21 06:35 Laboratory: Laboratory Results - last 24 hr 05/18/21 16:34: POC Glucose 100 05/18/21 22:47: POC Glucose 126 H 05/19/21 06:05: POC Glucose 99 05/19/21 06:35: Sodium 136, Potassium 4.2, Chloride 100, Carbon Dioxide 33.0 H, Anion Gap 3 L, BUN 23 H, Creatinine 1.06, Estim Creat Clear Calc 68.55, Est GFR (MDRD) Af Amer 92, Est GFR (MDRD) Non-Af 76, BUN/Creatinine Ratio 21.7 H, Glucose 101, Calcium 9.2 05/19/21 11:17: POC Glucose 86 Microbiology: Microbiology 05/16/21 14:40 Mucosa - Nose Respiratory Panel (PCR) - Final 05/15/21 12:18 Nasal Secretion SARS-CoV-2 Antigen (Rapid) - Final D/C Instructions Discharge Diet: Low fat / Low cholesterol and Carb Control Diet Call your doctor if you observe: Fever of 101 or Higher, Shortness of breath, Dizziness, Fainting spells, Swelling in the ankles, Chest pain and Increased palpitations (irregular heartbeat) Meaningful Use Info Meaningful Use Diagnoses (Choose all that apply): None applicable Discharge Plan Admission Admit Date/Time: 05/15/21 13:02 Attending Provider: Dionisio Keller Primary Care Provider: Zurdo Esparza Consulting Providers: Angeline Manjarrez ; Cinthya Moreno Discharge Orders/Prescriptions Prescriptions: New carvedilol 3.125 mg Tablet 3.125 mg PO BID Qty: 60 RF: 0 Continued midodrine 2.5 mg tablet 2.5 mg PO BID RF: 0 potassium chloride 20 mEq tablet,ER particles/crystals 20 meq PO BID RF: 0 citalopram 40 MG tablet 40 mg PO DAILY RF: 0 levothyroxine 75 MCG tablet 75 mcg PO DAILY RF: 0 omeprazole 40 MG capsule,delayed release(DR/EC) 40 mg PO DAILY RF: 0 ergocalciferol (vitamin D2) 50,000 UNIT capsule 50,000 unit PO FR RF: 0 sitagliptin 100 MG tablet 100 mg PO DAILY RF: 0 melatonin 3 MG capsule 3 mg PO QHS RF: 0 atorvastatin 40 MG tablet 40 mg PO DAILY RF: 0 quetiapine 300 MG tablet 300 mg PO QHS RF: 0 tamsulosin 0.4 MG capsule 0.4 mg PO DAILY@1730 RF: 0 calcium carbonate 500 MG tablet,chewable 500 mg PO BIDCM RF: 0 aspirin 81 MG tablet,chewable 81 mg PO DAILY@0800 RF: 0 magnesium chloride 71.5 MG tablet,delayed release (DR/EC) 71.5 mg PO BID RF: 0 fentanyl 25 mcg/hr patch 72 hour 25 mcg transdermal .Q72H RF: 0 Held furosemide 40 mg tablet 40 mg PO DAILY RF: 0 Hold Instructions: Resume on 05/26/21. Other Ambulatory Orders: Basic Metabolic Profile (BMP) (Routine) Timeframe: 2 Days Facility: [facility] - Location: Laboratory Ordered By: Dr. Dionisio Keller Referrals / Follow Up: Palomo Torre MD [STAFF PHYSICIAN] - Within 1 Month Cinthya Moreno DO [STAFF PHYSICIAN] - Within 2 Weeks Julian Jack MD [STAFF PHYSICIAN] - Within 1 Month Dez Gonzalez MD [STAFF PHYSICIAN] - Within 1 Week Zurdo Esparza MD [Primary Care Provider] - Within 1 Week Disposition Disposition (needs filled in before D/C Order can be placed): Home Health Service Charges/Coding Visit Charges Inpatient E&M: 95105 Disch Hosp
--- NOTE | 2021-05-19 16:18 | PHA.DC.MR ---
Pharmacy Service has performed discharge medication reconciliation for this patient. The patient's discharge medication list was reviewed for discrepancies and discrepancies were resolved. Medication education papers prepared, patient discharged when I went to youth counselor. Home Medications citalopram 40 mg PO DAILY 12/15/16 levothyroxine 75 mcg PO DAILY 10/09/19 omeprazole 40 mg PO DAILY 10/09/19 ergocalciferol (vitamin D2) 50,000 unit PO FR 11/23/19 sitagliptin 100 mg PO DAILY 08/14/20 melatonin 3 mg PO QHS 10/28/20 aspirin 81 mg PO DAILY@0800 12/02/20 atorvastatin 40 mg PO DAILY 12/02/20 calcium carbonate 500 mg PO BIDCM 12/02/20 magnesium chloride 71.5 mg PO BID 12/02/20 quetiapine 300 mg PO QHS 12/02/20 tamsulosin 0.4 mg PO DAILY@1730 12/02/20 midodrine 2.5 mg tablet 2.5 mg PO BID tab 01/08/21 fentanyl 25 mcg TRANSDERMAL .Q72H 03/14/21 potassium chloride 20 mEq tablet,extended release(part/cryst) 20 meq PO BID tab 04/03/21 furosemide 40 mg PO DAILY 05/15/21 carvedilol 3.125 mg PO BID #60 tab 05/19/21
== END 2021-05-19 16:02 | disposition home health service (06) | DRG 682 ==
LOC: ED 12:52 → PCU 13:50
PROVIDERS: Admitting Provider Family Medicine; Emergency Provider Emergency Medicine; PCP Internal Medicine; Visit Provider Family Medicine
DX: N17.9 Acute kidney failure, unspecified (principal); J96.01 Acute respiratory failure with hypoxia; I21.A1 Myocardial infarction type 2; I31.3 Pericardial effusion (noninflammatory); I50.32 Chronic diastolic (congestive) heart failure; S70.01XA Contusion of right hip, initial encounter; W06.XXXA Fall from bed, initial encounter; Y93.9 Activity, unspecified; Y92.9 Unspecified place or not applicable; E87.6 Hypokalemia; E03.9 Hypothyroidism, unspecified; E55.9 Vitamin D deficiency, unspecified; F41.9 Anxiety disorder, unspecified; N40.1 Benign prostatic hyperplasia with lower urinary tract symptoms; R33.8 Other retention of urine; G89.4 Chronic pain syndrome; I11.0 Hypertensive heart disease with heart failure; I25.10 Atherosclerotic heart disease of native coronary artery without angina pectoris; B18.2 Chronic viral hepatitis C; F32.A Depression, unspecified; E11.42 Type 2 diabetes mellitus with diabetic polyneuropathy; I25.2 Old myocardial infarction; I27.20 Pulmonary hypertension, unspecified; I65.29 Occlusion and stenosis of unspecified carotid artery; K21.9 Gastro-esophageal reflux disease without esophagitis; J44.9 Chronic obstructive pulmonary disease, unspecified; Z87.19 Personal history of other diseases of the digestive system; Z86.73 Personal history of transient ischemic attack (TIA), and cerebral infarction without residual deficits; Z85.118 Personal history of other malignant neoplasm of bronchus and lung; Z96.641 Presence of right artificial hip joint; Z92.21 Personal history of antineoplastic chemotherapy; Z95.1 Presence of aortocoronary bypass graft; Z79.82 Long term (current) use of aspirin; Z79.899 Other long term (current) drug therapy; Z79.891 Long term (current) use of opiate analgesic; F10.10 Alcohol abuse, uncomplicated; F17.210 Nicotine dependence, cigarettes, uncomplicated
CPT/HCPCS: 36415; 71045; 73502; 78582; 80048; 80053; 81001; 82077; 82962; 83735; 84100; 84484; 85025; 85379; 85610; 85730; 87426; 87633; 93005; 93308; 93458; 94640; 97110; 97162; 97166; 97530; 97535; 99152; 99153; 99285; 99406; A9540; A9567; J7030; J7040; Q9967; C1769; C1894

== ENCOUNTER → 2021-05-21 14:37 | Outpatient (CLI) | payer MEDICARE, MEDICAID, SELFPAY ==
[2021-05-21 17:25] LABS: Anion Gap 5 (5-15); BUN 16 mg/dL (7-18); BUN/Creat Ratio 9.5 RATIO (10-20); Calcium,Total 9.2 mg/dL (8.5-10.1); Chloride 96 mmol/L (98-107); Creatinine, Serum 1.69 mg/dL (0.70-1.30); EST Glomerular Filtration Rate 45 mL/min (>60); Est Glom Filt Rate - Afr Amer 54 mL/min (>60); Glucose 143 mg/dL (74-106); Potassium 4.1 mmol/L (3.5-5.1); Sodium Level 136 mmol/L (136-145)
== END ==
PROVIDERS: Family Medicine; PCP Internal Medicine; Visit Provider Internal Medicine
DX: N17.9 Acute kidney failure, unspecified (principal); J96.01 Acute respiratory failure with hypoxia; R55 Syncope and collapse; R53.81 Other malaise
CPT/HCPCS: 80048

== ENCOUNTER 2021-05-26 09:21 | Outpatient (RCR) | payer MEDICARE, MEDICAID, SELFPAY ==
[2021-05-23 11:58] LABS: Albumin, Serum 3.4 g/dL (3.2-5.0); BUN 18 mg/dL (7-18); BUN/Creat Ratio 11.8 RATIO (10-20); Calcium,Total 9.1 mg/dL (8.5-10.1); Chloride 100 mmol/L (98-107); Creatinine, Serum 1.53 mg/dL (0.70-1.30); EST Glomerular Filtration Rate 50 mL/min (>60); Est Glom Filt Rate - Afr Amer 60 mL/min (>60); Glucose 158 mg/dL (74-106); Phosphorus 3.2 mg/dL (2.5-4.9); Potassium 3.7 mmol/L (3.5-5.1); Sodium Level 135 mmol/L (136-145)
[2021-05-26 09:54] LABS: Albumin, Serum 3.1 g/dL (3.2-5.0); BUN 26 mg/dL (7-18); BUN/Creat Ratio 9.5 RATIO (10-20); Calcium,Total 8.6 mg/dL (8.5-10.1); Chloride 100 mmol/L (98-107); Creatinine, Serum 2.75 mg/dL (0.70-1.30); EST Glomerular Filtration Rate 25 mL/min (>60); Est Glom Filt Rate - Afr Amer 31 mL/min (>60); Glucose 108 mg/dL (74-106); Potassium 3.7 mmol/L (3.5-5.1); Sodium Level 136 mmol/L (136-145)
== END 2021-06-03 23:59 ==
LOC: HHLAB 09:21
PROVIDERS: Nurse Practitioner Gerontology; PCP Internal Medicine; Visit Provider Internal Medicine Nephrology
DX: N17.9 Acute kidney failure, unspecified (principal); I25.2 Old myocardial infarction; I31.3 Pericardial effusion (noninflammatory)
CPT/HCPCS: 80069

== ENCOUNTER → 2021-06-06 13:31 | Outpatient (CLI) | payer MEDICARE, MEDICAID, SELFPAY ==
[2021-06-06 16:19] LABS: Albumin, Serum 2.7 g/dL (3.2-5.0); BUN 20 mg/dL (7-18); BUN/Creat Ratio 11.8 RATIO (10-20); Chloride 100 mmol/L (98-107); Creatinine, Serum 1.69 mg/dL (0.70-1.30); EST Glomerular Filtration Rate 45 mL/min (>60); Est Glom Filt Rate - Afr Amer 54 mL/min (>60); Glucose 106 mg/dL (74-106); Phosphorus 1.7 mg/dL (2.5-4.9); Potassium 4.2 mmol/L (3.5-5.1); Sodium Level 136 mmol/L (136-145)
== END ==
PROVIDERS: PCP Internal Medicine; Visit Provider Internal Medicine Nephrology
DX: N17.9 Acute kidney failure, unspecified (principal)
CPT/HCPCS: 36415; 80069

== ENCOUNTER 2021-06-19 18:25 | Inpatient (IN) | payer MEDICARE, MEDICAID, SELFPAY ==
[2021-06-19 18:30] VITALS: BP 131/71; PULSE 87; RESP 18; TEMP 36.6; O2SAT 92; BMI 24.5
--- NOTE | 2021-06-19 18:40 | CT_ITS ---
STUDY: CT BRAIN WITHOUT CONTRAST REASON FOR EXAM: Male, 56 years old. dizziness RADIATION DOSAGE (If Supplied By Facility): CTDIvol = ( 47.06 ) mGy, DLP = ( 925.62 ) mGycm TECHNIQUE: Transaxial CT imaging of the brain was performed without administration of intravenous contrast material. Individualized dose optimization techniques were used for this CT. COMPARISON: No relevant priors. FINDINGS: Normal soft tissue structures. Normal calvarium. Mild calcification of cavernous carotids Normal size ventricles and extra-axial spaces for the patient''s age. Mild periventricular white matter ischemic change. Normal basal ganglia and thalami. Normal brainstem. Normal cerebellum. Empty sella deformity likely of no significance Mild soft tissue density within the left mastoid air cells which may be on the basis of old inflammatory disease There is no intracranial hemorrhage. There are no findings of an acute ischemic infarction. Postsurgical changes of left orbit. Small mucous retention cyst in left sphenoid sinus CT/Brain/Head without Contrast IMPRESSION: Mild periventricular white matter ischemic change. No evidence for acute bleed. If concern for acute infarct MRI recommended.. Electronically Signed: Tommy Francis MD at 19:34 EST , Service support ,
--- NOTE | 2021-06-19 18:40 | EKG12_ITS ---
Test Reason : SYNCOPE Blood Pressure : / mmHG Vent. Rate : 083 BPM Atrial Rate : 083 BPM P-R Int : 166 ms QRS Dur : 086 ms QT Int : 388 ms P-R-T Axes : 044 115 035 degrees QTc Int : 455 ms Sinus rhythm with Premature atrial complexes Low voltage QRS (Limb Leads) T wave abnormality, consider anterior ischemia Abnormal ECG Confirmed by ARTUR BINGHAM, LELA ([id number]), development editor REED FLORES ([id number]) on 06/20/2021 10:51:13 AM Referred By: KAROLINA Confirmed By:LELA SIDDIQUI MD
[2021-06-19 18:47] LABS: Absolute Lymphocyte Count 0.74 X10^3/uL (0.83-4.51); Absolute Neutrophil Count 7.4 X10^3/uL (2.0-7.7); Basophil# 0.05 X10^3/uL; Basophil% 0.6 % (0-1); Eosinophil# 0.09 X10^3/uL; Hematocrit 45.9 % (40-54); Hemoglobin 14.2 g/dL (13.0-16.5); Lymphocyte # 0.74 X10^3/ul (0.83-4.51); Lymphocyte % 8.3 % (19-41); Mean Corp Hgb Conc 30.9 g/dL (32-36); Mean Corpuscular Hgb 28.3 pg (27.0-32.0); Mean Corpuscular Volume 91.4 fL (80-94); Mean Platelet Vol. 9.9 fl (6.2-12.0); Monocyte# 0.57 X10^3/uL; Monocyte% 6.4 % (0-10); NRBC Flagged by Analyzer 0.2 % (0-5); Neutrophil # 7.41 X10^3/uL (2.7-7.7); Neutrophil % 83.1 % (47-70); Platelet Count 299 K/mm3 (150-450); RBC Distribution Width CV 19.3 % (11.6-14.6); RBC Distribution Width SD 61.6 fl (35.1-43.9); Red Blood Count 5.02 M/mm3 (4.6-6.2); White Blood Count 8.9 K/mm3 (4.4-11.0)
--- NOTE | 2021-06-19 19:03 | EDS_ITS ---
HPI HPI - Fall History of Present Illness Chief Complaint: Dizziness Narrative Narrative: 56-year-old male presenting with history of falls over the past couple of days. Initially he stated that he fell and then did not feel well and was back in bed. This was a couple of days ago. He states he called EMS to help him. Patient states he has had a couple of falls since then. He believes that he stayed most of the day on the floor yesterday and today. He does not know how he fell. He states his medic alert button went off when he fell and EMS called to see if he needed help and he said yes. Patient normally requires 2 L of oxygen via nasal cannula at baseline is requiring 4 L. It was noted he was hypoxic into the 70s at home. Patient states that he hurt his right hip but was able to bear weight on it after this. Patient denies fever or chills. He has a mild cough. He does not have any chest pain. Patient is a poor informant and seems to be perseverating. He cannot give me all the details of how he fell or if he hit his head or not. He does state that he was unconscious after his falls. [facility] Medical History Adenocarcinoma of left lung Alcohol abuse Barretts esophagus Carotid stenosis Chronic hepatitis C Closed right hip fracture Contusion of hip, right Depression Diabetes mellitus type 2 in nonobese DM2 (diabetes mellitus, type 2) Essential (primary) hypertension Fall GERD (gastroesophageal reflux disease) History of CVA (cerebrovascular accident) (08/25/19) Hypothyroidism Hypoxia Major depression with psychotic features New onset seizure Non-small cell lung cancer Non-ST elevated myocardial infarction (05/15/21) Peripheral neuropathy Tobacco dependence Vitamin D deficiency Home Medications citalopram 40 mg PO DAILY 12/15/16 [History Last Taken 05/14/21] levothyroxine 75 mcg PO DAILY 10/09/19 [History Last Taken 05/14/21] omeprazole 40 mg PO DAILY 10/09/19 [History Last Taken 05/14/21] ergocalciferol (vitamin D2) 50,000 unit PO FR 11/23/19 [History Last Taken 05/09/21] sitagliptin 100 mg PO DAILY 08/14/20 [History Last Taken 05/14/21] melatonin 3 mg PO QHS 10/28/20 [History Last Taken 05/14/21] aspirin 81 mg PO DAILY@0800 12/02/20 [History Last Taken 05/14/21] atorvastatin 40 mg PO DAILY 12/02/20 [History Last Taken 05/14/21] calcium carbonate 500 mg PO BIDCM 12/02/20 [History Last Taken 05/14/21] magnesium chloride 71.5 mg PO BID 12/02/20 [History Last Taken 05/14/21] quetiapine 300 mg PO QHS 12/02/20 [History Last Taken 05/14/21] tamsulosin 0.4 mg PO DAILY@1730 12/02/20 [History Last Taken 05/14/21] midodrine 2.5 mg tablet 2.5 mg PO BID tab 01/08/21 [History Last Taken 05/14/21] fentanyl 25 mcg TRANSDERMAL .Q72H 03/14/21 [History Last Taken 05/13/21] potassium chloride 20 mEq tablet,extended release(part/cryst) 20 meq PO BID tab 04/03/21 [History Last Taken 05/14/21] furosemide 40 mg PO DAILY 05/15/21 [History Last Taken 05/14/21] carvedilol 3.125 mg PO BID #60 tab 05/19/21 [Rx Last Taken Unknown] Allergy/AdvReac Type Severity Reaction Status Date / Time No Known Allergies Allergy Verified 06/19/21 18:36 Family History Father Heart disease Mother Heart disease CAD, Hx CABG. CAD (coronary artery disease) CAD, Hx CABG Diabetes Surgical History History of hemiarthroplasty of right hip History of left heart catheterization (05/19/21) History of liver biopsy History of right hip replacement (11/2019) Social History household members: none Smoking Status: Current every day smoker tobacco type: cigarettes alcohol intake: former details: Patient stated that he quit drinking 6 months ago except did have 2 beers. substance use type: marijuana ROS ROS ED ROS Narrative Generalized weakness Constitutional Constitutional ED: Denies chills or fever(s) ENT ENT ED: Denies rhinorrhea or sore throat Cardiovascular Cardiovascular: Denies chest pain Respiratory/Chest Respiratory/Chest: Reports dyspnea and dyspnea on exertion Gastrointestinal Gastrointestinal: Denies abdominal pain, nausea or vomiting Genitourinary Genitourinary ED: Denies dysuria or hematuria Musculoskeletal Musculoskeletal: Reports other Details: Right hip pain Integumentary Denies Abrasions or rash Neurologic Neurologic: Denies headache(s) or paresthesias EXAM Physical Exam Const Vital Signs: 06/19/21 18:30 06/19/21 18:36 06/19/21 21:46 Temperature 97.8 F 97.9 F Temperature Source Temporal Temporal Pulse Rate 87 84 Respiratory Rate 18 18 Respiratory Pattern Normal Blood Pressure 131/71 H 148/72 H Blood Pressure Mean 91 97 Pulse Ox 92 92 Oxygen Delivery Method Nasal Cannula Nasal Cannula Oxygen Flow Rate (L/min) 4 4 Positive unkempt General Appearance ED: unkempt and NAD HEENT Reports normocephalic atraumatic; Negative for trauma Eyes PERRL and EOMs intact bilaterally Neck full ROM and supple Chest Wall inspection of chest normal and palpation of chest normal Resp normal respiratory effort and no retractions Resp Narrative: Hypoxic requiring 4 L of oxygen. Baseline is 2 L Cardio regular rate and regular rhythm GI non-tender and non-distended Palpation: soft Extremity Extremity Narrative: Tenderness to palpation over the right hip. Negative logroll. Patient able to stand and pivot. Neuro CN's II-XII intact bilaterally Sensorium / Orientation: alert and confused Psych Appearance: unkempt Skin Rashes: No rashes noted MDM MDM MDM Narrative Medical decision making narrative: Patient presenting after multiple falls. He is describing dyspnea on exertion. He states he has been laying on the floor for multiple days. He said to call EMS to come pick him up off the floor. He is not having any chest pain but he is short of breath and is requiring more oxygen than his baseline. EKG on my interpretation shows a sinus rhythm with a ventricular of 83 bpm with T wave inversions in V2, V3, V4. No ST elevations or depressions. Chest x-ray shows a small left-sided pleural effusion and a left apical density which has increased since previous x-ray. Radiologist does agree. CBC shows no leukocytosis. Hemoglobin hematocrit are stable. Creatinine is near baseline at 1.72. Electrolytes are normal. Patient's AST and ALT are elevated. CPK is within normal limits. High-sensitivity troponin is 63. CT brain and cervical spine show no acute abnormalities. Right hip x- ray shows no acute fracture or subluxation. Radiologist did call me and state that the cup seems to be misplaced however looking back at his x-ray in May this was similar. Patient is able to stand and pivot. I do not believe this is acute. Patient was found to have UTI and is given Rocephin. Urine culture is sent. Given the patient's increasing oxygen demands as well as his confusion I believe needs to be admitted to the hospital. The hospitalist does request a CTA which can be followed up on the floor given his history of lung cancer. Patient transferred to the floor in stable condition. Impression: 1. Delirium 2. Dyspnea 3. Left pleural effusion 4. Falls 5. UTI 6. Generalized weakness 7. Right hip contusion Lab Data Labs: Laboratory Results - last 24 hr 06/19/21 06/19/21 06/19/21 18:35 18:35 18:35 WBC 8.9 RBC 5.02 Hgb 14.2 Hct 45.9 MCV 91.4 MCH 28.3 MCHC 30.9 L RDW Std Deviation 61.6 H RDW Coeff of Sophie 19.3 H Plt Count 299 MPV 9.9 Immature Gran % (Auto) 0.600 Neut % (Auto) 83.1 H Lymph % (Auto) 8.3 L [place] % (Auto) 6.4 Eos % (Auto) 1.0 Baso % (Auto) 0.6 Absolute Neuts (auto) 7.4 Absolute Lymphs (auto) 0.74 L Nucleated RBC % 0.2 Sodium 138 Potassium 4.0 Chloride 100 Carbon Dioxide 33.0 H Anion Gap 5 BUN 31 H Creatinine 1.72 H Estim Creat Clear Calc 43.77 Est GFR (MDRD) Af Amer 53 L Est GFR (MDRD) Non-Af 44 L BUN/Creatinine Ratio 18.0 Glucose 84 Calcium 8.4 L Total Bilirubin 0.70 AST 386 H ALT 390 H Alkaline Phosphatase 114 Total Creatine Kinase 220 Troponin I High Sens 63 Total Protein 7.2 Albumin 2.9 L Globulin 4.3 H Albumin/Globulin Ratio 0.7 L Urine Color Urine Clarity Urine pH Ur Specific [place] Urine Protein Urine Glucose (UA) Urine Ketones Urine Occult Blood Urine Nitrite Urine Bilirubin Urine Urobilinogen Ur Leukocyte Esterase Urine RBC Urine WBC Ur Squamous Epith Cells Urine Bacteria Urine Mucus Salicylates Acetaminophen Ur Drug Screen Comment 06/19/21 06/19/21 06/19/21 18:55 21:25 21:25 WBC RBC Hgb Hct MCV MCH MCHC RDW Std Deviation RDW Coeff of Sophie Plt Count MPV Immature Gran % (Auto) Neut % (Auto) Lymph % (Auto) [place] % (Auto) Eos % (Auto) Baso % (Auto) Absolute Neuts (auto) Absolute Lymphs (auto) Nucleated RBC % Sodium Potassium Chloride Carbon Dioxide Anion Gap BUN Creatinine Estim Creat Clear Calc Est GFR (MDRD) Af Amer Est GFR (MDRD) Non-Af BUN/Creatinine Ratio Glucose Calcium Total Bilirubin AST ALT Alkaline Phosphatase Total Creatine Kinase Troponin I High Sens Total Protein Albumin Globulin Albumin/Globulin Ratio Urine Color Yellow Urine Clarity Sl. Cloudy Urine pH 5.0 Ur Specific [place] 1.020 Urine Protein 30 H Urine Glucose (UA) Normal Urine Ketones 5 H Urine Occult Blood 50 H Urine Nitrite Positive H Urine Bilirubin Negative Urine Urobilinogen Normal Ur Leukocyte Esterase 500 H Urine RBC 0 SEEN Urine WBC 50-100 SEEN Ur Squamous Epith Cells 0 SEEN Urine Bacteria 1+ Urine Mucus 0 SEEN Salicylates 5.1 Acetaminophen < 2.0 L Ur Drug Screen Comment Radiography Diagnostic Testing: Clinical Impression(s) from Imaging Studies Brain CT 06/19/21 18:40 IMPRESSION: Mild periventricular white matter ischemic change. No evidence for acute bleed. If concern for acute infarct MRI recommended.. Electronically Signed: Tommy Francis MD at 19:34 EST , Service support , Cervical Spine CT 06/19/21 19:05 IMPRESSION: No evidence for acute fracture or subluxation. Moderate spondylosis most severe at C4-5 and C5-6 Electronically Signed: Tommy Francis MD at 19:38 EST , Service support , Chest X-Ray 06/19/21 19:20 IMPRESSION: Left apical density with associated small left pleural effusion which has increased in size since prior exam Electronically Signed: Tommy Francis MD at 19:51 EST , Service support , Hip/Pelvis X-Ray 06/19/21 19:20 IMPRESSION: Right hip prosthesis placement however, the acetabular cup component of the prosthesis appears rotated slightly laterally on the oblique view possibly artifactual. Clinical correlation recommended. Electronically Signed: Tommy Francis MD at 20:07 EST , Service support , ADDENDUM: 06/19/21 2018 IMPRESSION: Right hip prosthesis placement however, the acetabular cup component of the prosthesis appears rotated slightly laterally on the oblique view possibly artifactual. Clinical correlation recommended. N.B. : The above Results were Read Back by Tommy Francis MD to Dr Gopi DO, and understanding confirmed on 06/19/2021 20:11:28 (ET). Electronically Signed: Tommy Francis MD at 20:07 EST , Service support , Discharge Plan Triage Chief Complaint: Dizziness ED Provider: Mario Nguyễn Dx/Rx/DC Orders Primary Care Provider: Zurdo Esparza
--- NOTE | 2021-06-19 19:05 | CT_ITS ---
STUDY: CT CERVICAL SPINE WITHOUT CONTRAST REASON FOR EXAM: Male, 56 years old. falls RADIATION DOSAGE (If Supplied By Facility): CTDIvol = ( 18.34 ) mGy, DLP = ( 369.42 ) mGycm TECHNIQUE: High resolution transaxial imaging was performed without contrast material. Sagittal and coronal images were reconstructed. Individualized dose optimization techniques were used for this CT. COMPARISON: 10/28/2020 FINDINGS: Normal craniovertebral junction. Normal anterior atlantoaxial articulation. Normal odontoid process. Normal cervical lordosis. Normal vertebral bodies and posterior osseous elements. C2-3: Normal endplates. Normal disc height and morphology. Normal central canal and intervertebral neuroforamina. C3-4: Narrowed disc space without focal disc protrusion.. Normal central canal. Mild right neuroforaminal stenosis secondary to bony hypertrophy C4-5: Narrowed disc space and endplate spurring. Normal central canal. Severe right neuroforaminal stenosis and mild encroachment on the left secondary to bony hypertrophy.. C5-6: Narrowed disc space and endplate spurring. Mild narrowing of the central canal and cord impingement. Severe left neuroforaminal stenosis and moderate narrowing on the right secondary to bony hypertrophy C6-7: Normal endplates. Normal disc height and morphology. Normal central canal and intervertebral neuroforamina. C7-T1: Normal endplates. Normal disc height and morphology. Normal central canal and intervertebral neuroforamina. 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 CT/Spine Cervical without Contras IMPRESSION: No evidence for acute fracture or subluxation. Moderate spondylosis most severe at C4-5 and C5-6 Electronically Signed: Tommy Francis MD at 19:38 EST , Service support ,
[2021-06-19 19:11] LABS: ALB/GLOB Ratio 0.7 RATIO (0.9-2.4); AST(SGOT) 386 U/L (15-37); Alanine Aminotransfer ALT/SGPT 390 U/L (16-61); Albumin, Serum 2.9 g/dL (3.2-5.0); Alkaline Phosphatase 114 U/L (45-117); Anion Gap 5 (5-15); BUN 31 mg/dL (7-18); Calcium,Total 8.4 mg/dL (8.5-10.1); Chloride 100 mmol/L (98-107); Creatinine, Serum 1.72 mg/dL (0.70-1.30); EST Glomerular Filtration Rate 44 mL/min (>60); Est Glom Filt Rate - Afr Amer 53 mL/min (>60); Estimated Creatinine Clearance 43.77 ml/min; Globulin 4.3 g/dL (2.2-4.2); Glucose 84 mg/dL (74-106); Protein, Total 7.2 g/dL (6.4-8.2); Sodium Level 138 mmol/L (136-145); Troponin-I HS 63 pg/mL (3.0-78.0)
[2021-06-19 19:14] LABS: CPK Total, Creatine Kinase 220 U/L (39-308)
--- NOTE | 2021-06-19 19:20 | RAD_ITS ---
We are attempting to reach an attending provider to discuss findings. An addendum with communication details will be sent when the communication is complete. STUDY: X-RAY - PELVIS AND RIGHT HIP REASON FOR EXAM: Male, 56 years old. pain TECHNIQUE: 3 views of the pelvis and hip. COMPARISON: 05/15/2021 FINDINGS: There is a non-specific bowel gas pattern. Normal visualized soft tissue structures. Normal bilateral iliac wings, sacroiliac joints and visualized sacrum. Normal bilateral superior and inferior pubic rami. Normal pubic symphysis. Normal bilateral ischial tuberosities. No evidence for acute fracture or dislocation status post right hip prosthesis placement however the acetabular cup component appears very slightly rotated laterally visualized on the oblique view possibly artifactual as this is similar to that seen on previous exam. Clinical correlation recommended RAD/HIP, UNI W/ Pelvis 2-3 Views IMPRESSION: Right hip prosthesis placement however, the acetabular cup component of the prosthesis appears rotated slightly laterally on the oblique view possibly artifactual. Clinical correlation recommended. Electronically Signed: Tommy Francis MD at 20:07 EST , Service support ,
--- NOTE | 2021-06-19 19:20 | RAD_ITS ---
STUDY: X-RAY CHEST REASON FOR EXAM: Male, 56 years old. hypoxia TECHNIQUE: AP portable COMPARISON: 05/15/2021 FINDINGS: There is pleural-based density seen in the left upper lobe with cephalad retraction of the left hilum in association with small pleural effusion.. The heart is enlarged.. Normal mediastinum and [place]. Normal visualized pulmonary arteries. Normal visualized aortic arch and descending thoracic aorta. Dorsal spine demonstrates degenerative change Normal visualized ribs, clavicles, and shoulders. There is no demonstrated abnormality of the visualized soft tissue structures of the upper abdomen. RAD/Chest 1 View (Portable) IMPRESSION: Left apical density with associated small left pleural effusion which has increased in size since prior exam Electronically Signed: Tommy Francis MD at 19:51 EST , Service support ,
[2021-06-19 19:50] LABS: Acetaminophen (Tylenol) Level < 2.0 ug/mL (10.0-30.0); Salicylate 5.1 mg/dL (2.8-20.0)
--- NOTE | 2021-06-19 21:29 | CT_ITS ---
HISTORY: hypoxia TECHNIQUE: Helically acquired images were obtained of the chest following 100mL Isovue-370 IV contrast as per pulmonary angiogram protocol with 3D reconstructions. A radiation dose optimization technique was used for this scan. COMPARISON: March 14, 2021, August 25, 2019 FINDINGS: # of images incl. paperwork: [id number] THYROID IMAGED PORTION: Unremarkable. PULMONARY ARTERIES: No pulmonary embolism. No gross arterial enlargement. AORTA/AORTIC ARCH: Mild atherosclerosis. No ectasia. No dissection. HEART/PERICARDIUM: No cardiomegaly. No significant pericardial fluid. ADENOPATHY: No suspicious mediastinal or hilar adenopathy by size criteria. LUNG PARENCHYMA: Left apical chronic partially calcified heterogeneous consolidation, not significantly changed in size from 08/25/2019 surrounding effusion. Small bilateral layering effusions with compressive atelectasis. Bilateral patchy groundglass opacities in the anterior right middle lobe and anterior right upper lobe. Mild upper lung emphysematous change. PNEUMOTHORAX: None. UPPER ABDOMEN IMAGED PORTION: Cholelithiasis.. MUSCULOSKELETAL: No acute osseous finding. Chronic anterior compression deformity in the upper lumbar spine. CT/CTA Chest W/WO Contrast IMPRESSION: 1. No acute pulmonary embolism 2. Chronic left apical partially calcified consolidation or mass, not significantly changed from 08/25/2019 suggestive of a benign process. Additional six-month follow-up is recommended to establish greater than 2 year stability. 3. Small patchy groundglass passes in the anterior lungs, possibly atelectasis or atypical infection in the appropriate setting. 4. Small chronic bilateral pleural effusions. 5. Mild emphysematous change. Individualized dose optimization techniques were used for this CT. at 2351 Reported and signed by: Alphonso Mejia MD Electronically Signed: Alphonso Mejia MD at 23:50 EST Tel , Service support ,
[2021-06-19 21:34] LABS: Mucous, Urine 0 SEEN /hpf (<or=2+); Red Blood Cells-Urine 0 SEEN /hpf (0-5); Squamous Epithelial Cells - UA 0 SEEN /hpf (0-5)
[2021-06-19 21:37] LABS: Color, Urine Yellow (Yellow); Glucose, Dipstick Normal (Normal); Ketone-Dipstick 5 mg/dl (Negative); Leukocyte Esterase-Dipstick 500 /ul (Negative); Nitrite-Dipstick Positive (Negative); Occult Blood-Urine 50 /ul (Negative); Protein-Dipstick 30 mg/dl (Negative); Urine Bilirubin Dipstick Negative (Negative); Urine Clarity Sl. Cloudy (Clear); Urine Urobilinogen Normal (Normal)
--- NOTE | 2021-06-19 21:45 | HP.PCM.HOS_ITS ---
HPI - General General Date of Admission: 06/19/21 Date of Service: 06/19/21 Chief Complaint: Generalized weakness, lightheadedness HPI Narrative PATIENCE DEVINE, is a 56 M who presents to the emergency room at [facility] with a chief complaint of lightheadedness and generalized weakness. Patient stated that when the phone rang today he got up in his home to answer the phone and fell down. He does not know exactly why fell but he became very lightheaded. Patient states he has not taking his home meds in the past couple of days and he has just been lying around in bed. Work-up in the emergency room included a CBC which showed a normal white blood cell count and a normal hemoglobin. Patient's creatinine was elevated at 1.72, BUN was 31, AST was elevated at 386 and ALT was elevated at 390. Urinalysis was not completed at the time of this dictation, urine nitrites were positive. Patient has CT of the brain that showed white matter ischemic changes, no acute process was noted. Chest x-ray showed a left apical density associated with a small left pleural effusion. Remainder the imaging studies did not show anything acute. Patient required 5 L of oxygen via nasal cannula-he stated his usual oxygen setting was 2 L. On examination, patient had expiratory wheezing on the left side, decreased lung sounds are noted bilaterally otherwise. Patient will be admitted for exacerbation of COPD, acute debility, and dehydration. I do not think I want to perform a CTA of the chest at this time due to his creatinine elevation. I feel the patient probably has been noncompliant with his home medications, these will be reinstituted-there may need to be clarification on what the patient actually takes at home. PT and OT will see the patient. [facility] Medical History Adenocarcinoma of left lung Alcohol abuse Barretts esophagus Carotid stenosis Chronic hepatitis C Closed right hip fracture Contusion of hip, right Depression Diabetes mellitus type 2 in nonobese DM2 (diabetes mellitus, type 2) Essential (primary) hypertension Fall GERD (gastroesophageal reflux disease) History of CVA (cerebrovascular accident) (08/25/19) Hypothyroidism Hypoxia Major depression with psychotic features New onset seizure Non-small cell lung cancer Non-ST elevated myocardial infarction (05/15/21) Peripheral neuropathy Tobacco dependence Vitamin D deficiency Home Medications citalopram 40 mg PO DAILY 12/15/16 [History Last Taken 05/14/21] levothyroxine 75 mcg PO DAILY 10/09/19 [History Last Taken 05/14/21] omeprazole 40 mg PO DAILY 10/09/19 [History Last Taken 05/14/21] ergocalciferol (vitamin D2) 50,000 unit PO FR 11/23/19 [History Last Taken 05/09/21] sitagliptin 100 mg PO DAILY 08/14/20 [History Last Taken 05/14/21] melatonin 3 mg PO QHS 10/28/20 [History Last Taken 05/14/21] aspirin 81 mg PO DAILY@0800 12/02/20 [History Last Taken 05/14/21] atorvastatin 40 mg PO DAILY 12/02/20 [History Last Taken 05/14/21] calcium carbonate 500 mg PO BIDCM 12/02/20 [History Last Taken 05/14/21] magnesium chloride 71.5 mg PO BID 12/02/20 [History Last Taken 05/14/21] quetiapine 300 mg PO QHS 12/02/20 [History Last Taken 05/14/21] tamsulosin 0.4 mg PO DAILY@1730 12/02/20 [History Last Taken 05/14/21] midodrine 2.5 mg tablet 2.5 mg PO BID tab 01/08/21 [History Last Taken 05/14/21] fentanyl 25 mcg TRANSDERMAL .Q72H 03/14/21 [History Last Taken 05/13/21] potassium chloride 20 mEq tablet,extended release(part/cryst) 20 meq PO BID tab 04/03/21 [History Last Taken 05/14/21] furosemide 40 mg PO DAILY 05/15/21 [History Last Taken 05/14/21] carvedilol 3.125 mg PO BID #60 tab 05/19/21 [Rx Last Taken Unknown] Allergy/AdvReac Type Severity Reaction Status Date / Time No Known Allergies Allergy Verified 06/19/21 18:36 Family History Father Heart disease Mother Heart disease CAD, Hx CABG. CAD (coronary artery disease) CAD, Hx CABG Diabetes Surgical History History of hemiarthroplasty of right hip History of left heart catheterization (05/19/21) History of liver biopsy History of right hip replacement (11/2019) Social History household members: none Smoking Status: Current every day smoker tobacco type: cigarettes alcohol intake: former details: Patient stated that he quit drinking 6 months ago except did have 2 beers. substance use type: marijuana ROS ROS Narrative Patient is an extremely poor informant Constitutional Constitutional: Reports fatigue, malaise and weakness; Denies anorexia, change i n weight, chills, fever(s) or night sweats Eyes Eyes: Denies blurry vision, change in vision, discharge from eye(s) or eye pain Cardiovascular Cardiovascular: Reports dyspnea on exertion; Denies chest pain, claudication, edema or palpitations Respiratory/Chest Respiratory/Chest: Reports productive cough and other Details: Patient complains of a cough productive of white phlegm, patient states he has not noticed an increase in his dyspnea over the past few days ; Denies cough, hemoptysis, shortness of breath at rest or shortness of breath with exertion Gastrointestinal Gastrointestinal: Denies abdominal pain, constipation, diarrhea, hematemesis, hematochezia, melena, nausea or vomiting Genitourinary Genitourinary: Denies dysuria, hematuria, urinary frequency, urinary hesitancy, urinary incontinence or urinary urgency Musculoskeletal Musculoskeletal: Denies back pain, joint pain, joint stiffness, joint swelling, myalgias or neck pain Neurologic Neurologic: Denies abnormal gait, abnormal speech, dizziness, focal weakness, headache(s), loss of vision, numbness, other visual disturbances, paresthesias, syncope or tingling Psychiatric Psychiatric: Denies anxiety, cognitive impairment, depression, irritability, mood swings or suicidal ideation Endocrine Endocrinology: Denies change in body appearance, cold intolerance, excessive sweating, heat intolerance, polydipsia or polyuria Hematologic/Lymphatic Hematologic/Lymphatic: Denies none, anemia, easy bleeding, easy bruising or lymphadenopathy Allergic/Immunologic Allergic/Immunologic: Denies rhinitis, urticaria, eczemia or asthma Vital Signs Vital Signs Vital Signs: 06/19/21 18:30 06/19/21 18:36 Temperature 97.8 F Temperature Source Temporal Pulse Rate 87 Respiratory Rate 18 Respiratory Pattern Normal Blood Pressure 131/71 H Blood Pressure Mean 91 Pulse Ox 92 Oxygen Delivery Method Nasal Cannula Oxygen Flow Rate (L/min) 4 Weight Weight: 70.9 kg Body Mass Index (BMI) 24.5 Physical Exam Const alert, oriented x3 and no apparent distress Constitutional Narrative: Patient appears much older than his stated age General Appearance: cooperative, well kempt and well developed Orientation / Consciousness: awake, oriented to person, oriented to place and oriented to time HEENT normocephalic, head/scalp atraumatic, hearing grossly normal bilaterally and moist oral mucous membranes Eyes PERRL, EOMs intact bilaterally and conjunctivae normal Neck nuchal rigidity, supple, no JVD, thyroid normal and no carotid bruits General: trachea midline Resp normal respiratory effort, no retractions and no use of accessory muscles Resp Narrative: Patient has decreased breath sounds bilaterally Auscultation: wheezes right lower; Negative for rales or rhonchi Cardio regular rate, regular rhythm, S1 normal heart sound, S2 normal heart sound, no murmurs, no rub and no gallops GI normal to inspection, nondistended, normoactive bowel sounds, soft to palpation, non-tender and non-distended Extremity normal to inspection and no clubbing, cyanosis or edema Skin no rashes or lesions noted General Skin Exam: no breakdown Neuro oriented x3, CN's II-XII intact bilaterally, no focal motor deficits and no sensory deficits noted Sensorium / Orientation: awake and alert Speech: speech normal Psych thought process normal and affect normal Results Lab / Micro Data Result Diagrams: 06/19/21 18:35 06/19/21 18:35 Labs: Laboratory Results - last 24 hr 06/19/21 18:35: WBC 8.9, RBC 5.02, Hgb 14.2, Hct 45.9, MCV 91.4, MCH 28.3, MCHC 30.9 L, RDW Std Deviation 61.6 H, RDW Coeff of Sophie 19.3 H, Plt Count 299, MPV 9.9, Immature Gran % (Auto) 0.600, Neut % (Auto) 83.1 H, Lymph % (Auto) 8.3 L, Harrison % (Auto) 6.4, Eos % (Auto) 1.0, Baso % (Auto) 0.6, Absolute Neuts (auto) 7.4, Absolute Lymphs (auto) 0.74 L, Nucleated RBC % 0.2 06/19/21 18:35: Sodium 138, Potassium 4.0, Chloride 100, Carbon Dioxide 33.0 H, Anion Gap 5, BUN 31 H, Creatinine 1.72 H, Estim Creat Clear Calc 43.77, Est GFR (MDRD) Af Amer 53 L, Est GFR (MDRD) Non-Af 44 L, BUN/Creatinine Ratio 18.0, Glucose 84, Calcium 8.4 L, Total Bilirubin 0.70, AST 386 H, ALT 390 H, Alkaline Phosphatase 114, Troponin I High Sens 63, Total Protein 7.2, Albumin 2.9 L, Globulin 4.3 H, Albumin/Globulin Ratio 0.7 L 06/19/21 18:35: Total Creatine Kinase 220 06/19/21 18:55: Salicylates 5.1, Acetaminophen < 2.0 L 06/19/21 21:25: Ur Drug Screen Comment 06/19/21 21:25: Urine Color Yellow, Urine Clarity Sl. Cloudy, Urine pH 5.0, Ur Specific [place] 1.020, Urine Protein 30 H, Urine Glucose (UA) Normal, Urine Ketones 5 H, Urine Occult Blood 50 H, Urine Nitrite Positive H, Urine Bilirubin Negative, Urine Urobilinogen Normal, Ur Leukocyte Esterase 500 H Micro: Microbiology 06/19/21 19:35 Nasal Secretion SARS-CoV-2 Antigen (Rapid) - Final Radiology Impression Brain CT 06/19/21 18:40 IMPRESSION: Mild periventricular white matter ischemic change. No evidence for acute bleed. If concern for acute infarct MRI recommended.. Electronically Signed: Tommy Francis MD at 19:34 EST , Service support , Cervical Spine CT 06/19/21 19:05 IMPRESSION: No evidence for acute fracture or subluxation. Moderate spondylosis most severe at C4-5 and C5-6 Electronically Signed: Tommy Francis MD at 19:38 EST , Service support , Chest X-Ray 06/19/21 19:20 IMPRESSION: Left apical density with associated small left pleural effusion which has increased in size since prior exam Electronically Signed: Tommy Francis MD at 19:51 EST , Service support , Hip/Pelvis X-Ray 06/19/21 19:20 IMPRESSION: Right hip prosthesis placement however, the acetabular cup component of the prosthesis appears rotated slightly laterally on the oblique view possibly artifactual. Clinical correlation recommended. Electronically Signed: Tomym Francis MD at 20:07 EST , Service support , ADDENDUM: 06/19/212017 IMPRESSION: Right hip prosthesis placement however, the acetabular cup component of the prosthesis appears rotated slightly laterally on the oblique view possibly artifactual. Clinical correlation recommended. N.B. : The above Results were Read Back by Tommy Francis MD to Dr Gopi DO, and understanding confirmed on 06/19/2021 20:11:28 (ET). Electronically Signed: Tommy Francis MD at 20:07 EST , Service support , Assessment & Plan Assessment/Plan (1) Debility: PLAN: 1. Acute exacerbation of COPD-patient is requiring more than his baseline O2 requirement, he does have expiratory wheezes over the left lower lobe anteriorly, breath sounds are very distant bilaterally. Patient will be admitted to [facility], placed on aerosol treatments and IV Solu-Medrol, pulse ox will be monitored. #2 acute on chronic hypoxic respiratory failure-patient's pulse ox will be monitored #3 generalized debility-PT and OT will see the patient #4 dehydration-patient's baseline creatinine is approximately 1.5-1.6, I will place the patient on IV fluids overnight and he will need to be reevaluated in the morning, labs will be rechecked #5 left lung adenocarcinoma-currently not being treated, I talked to his oncologist Dr. Harper by phone tonight, he states that the patient has not required treatment in approximately 2 years. #6 suspect self-neglect #7 noncompliance with home medications according to patient-I am not sure what medication the patient is currently taking #8 elevated liver enzymes-etiology unclear at this point #9 essential hypertension #10 hypothyroidism #11 cerebrovascular disease #12 hyperlipidemia #13 chronic pain syndrome-patient is not currently wearing a fentanyl patch, in the past he has been on this medication #14 chronic anxiety and depression-patient is supposed to be taking citalopram and Seroquel. Charges/Coding Visit Charges Inpatient E&M: 36600 Init Hosp L3
[2021-06-19 21:46] VITALS: BP 148/72; PULSE 84; RESP 18; TEMP 36.6; O2SAT 92
[2021-06-19 21:53] LABS: White Blood Cells 50-100 SEEN /hpf (0-5)
[2021-06-19 21:54] LABS: Bacteria 1+ /hpf (None Seen)
[2021-06-19 22:07] LABS: Amphetamine Urine VISTA NEGATIVE (<1000 ng/mL); Barbiturate Urine VISTA NEGATIVE (< 200 ng/mL); Benzodiazepine Urine VISTA NEGATIVE (< 200 ng/mL); Cocaine Urine VISTA NEGATIVE (< 300 ng/mL); Ecstacy Urine VISTA NEGATIVE (< 500 ng/mL); Methadone Urine VISTA NEGATIVE (< 300 ng/mL); PCP Urine VISTA NEGATIVE (< 25 ng/mL); THC Urine VISTA POSITIVE (< 50 ng/mL); Vista UDS pH Range 5
[2021-06-19] MEDS: Ceftriaxone 1 GM/50 ML BAG IV (22:40)
[2021-06-19 23:11] VITALS: BMI 22.8
[2021-06-19 23:17] VITALS: BP 143/90; PULSE 86; RESP 24; TEMP 36.7; O2SAT 96
--- NOTE | 2021-06-19 23:40 | PCS.PANDOC ---
PANDEMIC DOCUMENTATION INITIATED: Date: 02/17/2021 Time: 190
[2021-06-20] VITALS (9 sets, daily range): BP systolic 113–132; BP diastolic 54–80; PULSE 78–96; RESP 16–18; TEMP 36.6–37.2; O2SAT 91–96
[2021-06-20] MEDS: 0.9% Normal Saline 1,000 ML 100 ML IV ×3 (00:01→21:30)
--- NOTE | 2021-06-20 04:36 | PCA ---
this BUSINESS CONTINUITY MANAGEMENT DIRECTOR could smell smoke in hallway, entered patient's room and could still smell smoke, patient was confronted about smoking in his room and he gave cigarettes and his cut off saw grader to this BUSINESS CONTINUITY MANAGEMENT DIRECTOR and RN Melonie locked both cigarettes and cut off saw grader in med pricing coordinator room. Primary RN Lala made aware
--- NOTE | 2021-06-20 04:48 | NURSING ---
Patient was caught by CORPORATE CONTROLLER smoking in his room in his bed with 6L of oxygen under his blanket. He was counseled on the risk to him and others. Will get an order for a nicotine patch. His cigarettes and senior packaging engineer was taken and locked in [employer] drawer.
[2021-06-20] MEDS: Levothyroxine 75 MCG Tablet PO (06:12)
[2021-06-20] MEDS: 0.9% Saline Lock 10 ML Syringe IV ×2 (06:13→21:40)
[2021-06-20 06:45] LABS: Bedside Glucose 86 mg/dL (70-110)
[2021-06-20 06:45] LABS: Bedside Glucose 66 mg/dL (70-110)
[2021-06-20 07:06] LABS: AST(SGOT) 252 U/L (15-37); Alanine Aminotransfer ALT/SGPT 294 U/L (16-61); Albumin, Serum 2.4 g/dL (3.2-5.0); Alkaline Phosphatase 94 U/L (45-117); Anion Gap 4 (5-15); BUN 23 mg/dL (7-18); BUN/Creat Ratio 18.3 RATIO (10-20); Bilirubin, Direct 0.35 mg/dL (0.00-0.30); Calcium,Total 7.6 mg/dL (8.5-10.1); Chloride 98 mmol/L (98-107); Creatinine, Serum 1.26 mg/dL (0.70-1.30); EST Glomerular Filtration Rate 62 mL/min (>60); Est Glom Filt Rate - Afr Amer 76 mL/min (>60); Estimated Creatinine Clearance 57.67 ml/min; Globulin 3.8 g/dL (2.2-4.2); Glucose 66 mg/dL (74-106); Protein, Total 6.2 g/dL (6.4-8.2); Sodium Level 137 mmol/L (136-145)
[2021-06-20] MEDS: Ipratropium/Albuterol Sulfate 3 ML AMPUL.NEB INHALATION ×3 (07:14→20:25)
--- NOTE | 2021-06-20 07:34 | CPS ---
pt decreased to 4.5 lpm, saturation 94%. nurse aware of change
[2021-06-20] MEDS: Aspirin 81 MG TAB.CHEW PO (08:53)
[2021-06-20] MEDS: Heparin Injection (Vial) 5,000 UNIT/ML VIAL 5000 UNIT SC ×2 (09:08→21:40)
[2021-06-20] MEDS: Pantoprazole Sodium 40 MG Tablet PO (09:08)
[2021-06-20] MEDS: Citalopram 40 MG TABLET PO (09:08)
[2021-06-20] MEDS: Carvedilol 3.125 MG TABLET PO ×2 (09:08→21:33)
[2021-06-20] MEDS: Glucerna Shake 120 ML LIQUID PO ×4 (09:17→21:39)
[2021-06-20] MEDS: Potassium Chloride 10mEq/100mL 10 MEQ/100 ML IV.SOLN. 100 MEQ IV BOLUS ×4 (09:41→14:08)
--- NOTE | 2021-06-20 10:13 | CASEMGMT ---
DANG VALENTIN Assessment: Face to Face with pt for initial transition planning/care coordination assessment. RN BARBIE introduced self and role at [facility], pt voices understanding and consents to assessment. Pt is A/O x4 but seems somewhat forgetful. Patient lying in bed with O2 in place. Care providers, pharmacy, and demographics verified/updated. Admitting Dx: Exacerbation of COPD, debility PCP: Isaias Specialists: Masci- onc, Basali- pain management, Guero- cardio Preferred Pharmacy: [place], [place] Insurance: [employer] [facility] Prescription Benefit: yes LW/HPOA: Patient reports his DPOA is brotherCarmine. LW/DPOA on file. LNOK: Brother Carmine Givens. Living Arrangements: Pt lives alone in second floor apartment with elevator. Patient reports he is independent with ADLs prior to hospitalization. Transportation: Pt drives self and denies concerns with transportation. DME/HHC/SNF: medic alert, oxygen at 2L continuous through [employer], quad cane, rollator, BP cuff, glucometer, grab bars, shower bench, lift chair. HHC/SNF: Patient reports having HHC through [facility] approximately 1 year ago, as well as [facility] recently. Patient reports previous SNF stay but unsure of name of facility. Per records, patient had previous stay at [facility]. Social: Patient reports he smokes 1.5 ppd, has cut back on alcohol use and currently drinks approximately 2 beers/day and denies drug use. CM discussed HHC and SNF with patient. Patient unsure about these services at this time. Pt states no further concerns/needs. CM to follow therapy evals. Advised pt to ask CM if any further question/concerns/needs arise, voices understanding. Pt Goal: to be determined Plan: to be determined Call to [facility] [place], verified oxygen settings at 2L continuous. Call to Palliative Care, spoke with Argelia. Made aware patient is hospitalized, they are active with patient.
--- NOTE | 2021-06-20 10:53 | PN.HOSP_ITS ---
Documented by User: Vanesa Arevalo NP-C 06/20/21 11:04 Subjective Subjective Patient seen and examined. Patient lying in bed no distress noted eating breakfast. Patient currently on 6 L nasal cannula, wears 2 L nasal cannula at home. Objective Data Objective Data Vital Signs: Vital Signs Temp Pulse Resp BP Pulse Ox 97.9 F 96 16 113/54 L 95 06/20/21 05:00 06/20/21 07:14 06/20/21 07:14 06/20/21 05:00 06/20/21 07:14 Oxygen Flow Rate (L/min) 5 Oxygen Delivery Method Nasal Cannula Weight: 145 lb 8.081 oz Body Mass Index (BMI) 22.8 Intake & Output: Intake and Output for Last 24 Hours 06/18/21 06/19/21 06/20/21 23:59 23:59 23:59 Intake Total 50 / 50 966.67 / 966.67 Balance 50 / 50 966.67 / 966.67 Lab / Micro Data Result Diagrams: 06/19/21 18:35 06/20/21 05:56 Labs: Laboratory Results - last 24 hr 06/19/21 18:35: WBC 8.9, RBC 5.02, Hgb 14.2, Hct 45.9, MCV 91.4, MCH 28.3, MCHC 30.9 L, RDW Std Deviation 61.6 H, RDW Coeff of Sophie 19.3 H, Plt Count 299, MPV 9.9, Immature Gran % (Auto) 0.600, Neut % (Auto) 83.1 H, Lymph % (Auto) 8.3 L, [place] % (Auto) 6.4, Eos % (Auto) 1.0, Baso % (Auto) 0.6, Absolute Neuts (auto) 7.4, Absolute Lymphs (auto) 0.74 L, Nucleated RBC % 0.2 06/19/21 18:35: Sodium 138, Potassium 4.0, Chloride 100, Carbon Dioxide 33.0 H, Anion Gap 5, BUN 31 H, Creatinine 1.72 H, Estim Creat Clear Calc 43.77, Est GFR (MDRD) Af Amer 53 L, Est GFR (MDRD) Non-Af 44 L, BUN/Creatinine Ratio 18.0, Gluc ose 84, Calcium 8.4 L, Total Bilirubin 0.70, AST 386 H, ALT 390 H, Alkaline Phosphatase 114, Troponin I High Sens 63, Total Protein 7.2, Albumin 2.9 L, Globulin 4.3 H, Albumin/Globulin Ratio 0.7 L 06/19/21 18:35: Total Creatine Kinase 220 06/19/21 18:55: Salicylates 5.1, Acetaminophen < 2.0 L 06/19/21 21:25: Urine Opiates Screen NEGATIVE, Urine Methadone Screen NEGATIVE, Ur Barbiturates Screen NEGATIVE, Ur Phencyclidine Scrn NEGATIVE, Ur Amphetamines Screen NEGATIVE, U Methamphetamin-MDMA NEGATIVE, U Benzodiazepines Scrn NEGATIVE, Urine Cocaine Screen NEGATIVE, U Cannabinoids Screen POSITIVE H, Ur Drug Screen Comment 06/19/21 21:25: Urine Color Yellow, Urine Clarity Sl. Cloudy, Urine pH 5.0, Ur Specific [place] 1.020, Urine Protein 30 H, Urine Glucose (UA) Normal, Urine Ketones 5 H, Urine Occult Blood 50 H, Urine Nitrite Positive H, Urine Bilirubin Negative, Urine Urobilinogen Normal, Ur Leukocyte Esterase 500 H, Urine RBC 0 SEEN, Urine WBC 50-100 SEEN, Ur Squamous Epith Cells 0 SEEN, Urine Bacteria 1+, Urine Mucus 0 SEEN 06/20/21 05:56: Sodium 137, Potassium 3.0 L, Chloride 98, Carbon Dioxide 35.0 H, Anion Gap 4 L, BUN 23 H, Creatinine 1.26, Estim Creat Clear Calc 57.67, Est GFR (MDRD) Af Amer 76, Est GFR (MDRD) Non-Af 62, BUN/Creatinine Ratio 18.3, Glucose 66 L, Calcium 7.6 L, Total Bilirubin 0.70, Direct Bilirubin 0.35 H, AST 252 H, ALT 294 H, Alkaline Phosphatase 94, Total Protein 6.2 L, Albumin 2.4 L, Globulin 3.8 06/20/21 06:10: POC Glucose 66 L 06/20/21 06:42: POC Glucose 86 Micro: Microbiology 06/19/21 19:35 Nasal Secretion SARS-CoV-2 Antigen (Rapid) - Final Radiography Diagnostic Testing: Radiology Impression Brain CT 06/19/21 18:40 IMPRESSION: Mild periventricular white matter ischemic change. No evidence for acute bleed. If concern for acute infarct MRI recommended.. Electronically Signed: Tommy Francis MD at 19:34 EST , Service support , Cervical Spine CT 06/19/21 19:05 IMPRESSION: No evidence for acute fracture or subluxation. Moderate spondylosis most severe at C4-5 and C5-6 Electronically Signed: Tommy Francis MD at 19:38 EST , Service support , Chest X-Ray 06/19/21 19:20 IMPRESSION: Left apical density with associated small left pleural effusion which has increased in size since prior exam Electronically Signed: Tommy Francis MD at 19:51 EST , Service support , Hip/Pelvis X-Ray 06/19/21 19:20 IMPRESSION: Right hip prosthesis placement however, the acetabular cup component of the prosthesis appears rotated slightly laterally on the oblique view possibly artifactual. Clinical correlation recommended. Electronically Signed: Tommy Francis MD at 20:07 EST , Service support , ADDENDUM: 06/19/21 2018 IMPRESSION: Right hip prosthesis placement however, the acetabular cup component of the prosthesis appears rotated slightly laterally on the oblique view possibly artifactual. Clinical correlation recommended. N.B. : The above Results were Read Back by Tommy Francis MD to Dr Gopi DO, and understanding confirmed on 06/19/2021 20:11:28 (ET). Electronically Signed: Tommy Francis MD at 20:07 EST , Service support , Chest CTA 06/19/21 21:29 IMPRESSION: 1. No acute pulmonary embolism 2. Chronic left apical partially calcified consolidation or mass, not significantly changed from 08/25/2019 suggestive of a benign process. Additional six-month follow-up is recommended to establish greater than 2 year stability. 3. Small patchy groundglass passes in the anterior lungs, possibly atelectasis or atypical infection in the appropriate setting. 4. Small chronic bilateral pleural effusions. 5. Mild emphysematous change. Individualized dose optimization techniques were used for this CT. at 2351 Reported and signed by: Alphonso Mejia MD Electronically Signed: Alphonso Mejia MD at 23:50 EST Tel , Service support , Physical Exam Const alert, oriented x3 and no apparent distress General Appearance: cooperative and well developed Orientation / Consciousness: awake HEENT normocephalic, head/scalp atraumatic and moist oral mucous membranes Eyes conjunctivae normal and no scleral icterus Neck supple, no JVD, thyroid normal and no carotid bruits General: trachea midline Resp normal respiratory effort and clear to auscultation bilaterally Effort and Inspection: able to speak in complete sentences and symmetric chest movement Auscultation: wheezes right lower and diminished lung sounds Cardio regular rate, regular rhythm, S1 normal heart sound and S2 normal heart sound GI normal to inspection, nondistended, normoactive bowel sounds, soft to palpation and non-tender Extremity normal to inspection and no clubbing, cyanosis or edema Peripheral Pulses: Yes pulses 2+ throughout Skin no rashes or lesions noted General Skin Exam: no breakdown Neuro oriented x3, no focal motor deficits and no sensory deficits noted Sensorium / Orientation: awake and alert Speech: speech normal Psych thought process normal and affect normal Assessment & Plan Assessment/Plan (1) Debility: PLAN: Patient is a 56-year-old male who presented with COPD exacerbation and urinary tract infection. Patient currently on 6 L nasal cannula oxygen. 1. Acute on chronic hypoxic respiratory failure secondary to acute exacerbation of COPD -Continue aerosol treatments and IV Solu-Medrol -Currently on 6 L nasal cannula oxygen 2. Urinary tract infection -Continue Rocephin IV -Continue IV fluids -Continue intake and output 3. Generalized debility -Possibly secondary to #2 -PT and OT following -Suspect patient does not take care of himself at home, noncompliant with medication regimen 4. Dehydration -Likely secondary to #2 -Improved following IV fluids, will continue 5. Elevated AST and ALT -Improved -Daily CMP ordered DVT prophylaxis-subcu heparin This patient was seen by ANGEL Joy under the supervision of Dr. Bravo perry. Documented by User: Dr. Jessie Licona MD 06/20/21 15:22 Objective Data Lab / Micro Data Result Diagrams: 06/19/21 18:35 06/20/21 05:56 Charges/Coding Addendum Addendum: Patient seen by ANGEL Sommer under my supervision Patient seen and examined. He feels better today. He is asking for his nicotine patch. He denies cough or shortness of breath much chest pain or palpitations, dizziness, nausea vomiting. Review of systems otherwise negative. O/E: Const alert, oriented x3 and no apparent distress Orientation / Consciousness: awake, oriented to person, oriented to place and oriented to time HEENT normocephalic, head/scalp atraumatic, hearing grossly normal bilaterally and moist oral mucous membranes Eyes PERRL, EOMs intact bilaterally and conjunctivae normal Neck nuchal rigidity, supple, no JVD, thyroid normal and no carotid bruits General: trachea midline Resp normal respiratory effort, no retractions and no use of accessory muscles Resp Narrative: Patient has decreased breath sounds bilaterally Auscultation: wheezes right lower; Negative for rales or rhonchi Cardio regular rate, regular rhythm, S1 normal heart sound, S2 normal heart sound, no murmurs, no rub and no gallops GI normal to inspection, nondistended, normoactive bowel sounds, soft to palpation, non-tender and non-distended Extremity normal to inspection and no clubbing, cyanosis or edema Skin no rashes or lesions noted General Skin Exam: no breakdown Neuro oriented x3, CN's II-XII intact bilaterally, no focal motor deficits and no sensory deficits noted Sensorium / Orientation: awake and alert Speech: speech normal Psych thought process normal and affect normal Plan is continue breathing treatments bronchodilators. Titrate oxygen to maintain saturation above 90%. Patient has a history of left lung adenocarcinoma but has not required treatment in about 2 years according to his oncologist who the admitting hospitalist did. Titrate oxygen to maintain satur ation above 90%. PT OT on board. Fall precautions. Continue IV Solu-Medrol Rest as per l [employer]-c's note which I have reviewed and endorsed. Visit Charges Inpatient E&M: 36676 Subs Hosp L2
--- NOTE | 2021-06-20 11:02 | CASEMGMT ---
Social Work Note SW reviewed chart. Pt has CM Yoselyn Henderson through [facility]. SW placed a call to Yoselyn Henderson and left message regarding pt's admission. Brittni Weeks BIG DATA LEAD, PRODUCTION WORKER
--- NOTE | 2021-06-20 11:41 | CASEMGMT ---
Addendum entered by Brittni Weeks 06/20/21 12:28: SW received call from Elsa at [facility] stating they can accept pt and will submit for pre-cert. SW provided Elsa with MS3 number in the event pre-cert is obtained over the weekend. SW informed pt that he has been accepted to [facility] pending pre-cert and he will remain at [facility] until pre-cert is obtained. Pt states understanding. SW placed Green sheet, transport forms, COVID tool on pt's chart in the event pre-cert is obtained over the weekend. Plan: [facility] pending pre-cert Original Note: Social Work Note SW updated that pt is requesting SNF at discharge. SW in to speak with pt. SW introduced self and role at [facility]. Pt confirms he would like to discharge to SNF. Patient was provided a list of SNF providers including quality and resource use data and consistent with the patient?s preferred geographic region, medical needs, and insurance network. Pt asked about [facility]. SW informed pt that [facility] doesn't take pt's insurance. Pt states he has been to [facility] before and would be agreeable to returning there at discharge. Pt states he is not sure if they have beds or not. SW informed pt that this worker will check on bed availability at [facility] and keep him updated. Pt states understanding. SW placed a call to Elsa at [facility] and provided referral. SW faxed referral to [facility]. Plan: [facility] pending acceptance and pre-cert Brittni Weeks DESIGN SPECIALIST, PRINTING PLATE SETTER
[2021-06-20 11:56] LABS: Bedside Glucose 146 mg/dL (70-110)
--- NOTE | 2021-06-20 12:36 | CASEMGMT ---
Pt is current with [facility] .
[2021-06-20] MEDS: Tamsulosin HCl 0.4 MG Capsule PO (17:11)
[2021-06-20 17:15] LABS: Bedside Glucose 208 mg/dL (70-110)
[2021-06-20] MEDS: Insulin Lispro 100 UNIT/ML INSULN.PEN SC ×2 (17:15→21:47)
[2021-06-20] MEDS: Ceftriaxone 1 GM/50 ML BAG IV (21:31)
[2021-06-20] MEDS: Atorvastatin Calcium 40 MG Tablet PO (21:33)
[2021-06-20 21:55] LABS: Bedside Glucose 182 mg/dL (70-110)
--- NOTE | 2021-06-21 00:54 | CPS ---
pt stated earlier that aersosol treatments were hurting his throat. did not give 1 am treatment.
[2021-06-21 05:00] VITALS: BP 157/53; PULSE 76; RESP 18; TEMP 37.2; O2SAT 95
[2021-06-21] MEDS: Levothyroxine 75 MCG Tablet PO (06:44)
[2021-06-21] MEDS: 0.9% Saline Lock 10 ML Syringe IV ×2 (06:45→14:16)
[2021-06-21] MEDS: Insulin Lispro 100 UNIT/ML INSULN.PEN SC ×2 (06:47→11:11)
[2021-06-21 07:11] LABS: Bedside Glucose 207 mg/dL (70-110)
[2021-06-21] MEDS: Ipratropium/Albuterol Sulfate 3 ML AMPUL.NEB INHALATION (07:11)
[2021-06-21 07:12] VITALS: PULSE 74; RESP 20; O2SAT 93
[2021-06-21 08:04] LABS: Absolute Lymphocyte Count 0.24 X10^3/uL (0.83-4.51); Absolute Neutrophil Count 10.3 X10^3/uL (2.0-7.7); Basophil# 0.01 X10^3/uL; Basophil% 0.1 % (0-1); Hemoglobin 12.7 g/dL (13.0-16.5); Lymphocyte # 0.24 X10^3/ul (0.83-4.51); Lymphocyte % 2.2 % (19-41); Mean Corpuscular Hgb 27.8 pg (27.0-32.0); Mean Corpuscular Volume 89.7 fL (80-94); Monocyte# 0.25 X10^3/uL; Monocyte% 2.3 % (0-10); NRBC Flagged by Analyzer 0 % (0-5); Neutrophil # 10.25 X10^3/uL (2.7-7.7); Neutrophil % 94.8 % (47-70); POSITIVE DIFFERENTIAL YES; Platelet Count 297 K/mm3 (150-450); RBC Distribution Width CV 19.4 % (11.6-14.6); RBC Distribution Width SD 58.8 fl (35.1-43.9); Red Blood Count 4.57 M/mm3 (4.6-6.2); White Blood Count 10.8 K/mm3 (4.4-11.0)
[2021-06-21 08:06] LABS: Differential Indicated SCAN CRITERIA MET
[2021-06-21] MEDS: 0.9% Normal Saline 1,000 ML 100 ML IV (08:17)
[2021-06-21] MEDS: Aspirin 81 MG TAB.CHEW PO (08:22)
[2021-06-21] MEDS: Pantoprazole Sodium 40 MG Tablet PO (08:22)
[2021-06-21] MEDS: Heparin Injection (Vial) 5,000 UNIT/ML VIAL 5000 UNIT SC (08:22)
[2021-06-21] MEDS: Citalopram 40 MG TABLET PO (08:22)
[2021-06-21] MEDS: Carvedilol 3.125 MG TABLET PO (08:23)
[2021-06-21 08:50] LABS: ALB/GLOB Ratio 0.6 RATIO (0.9-2.4); AST(SGOT) 137 U/L (15-37); Alanine Aminotransfer ALT/SGPT 232 U/L (16-61); Albumin, Serum 2.2 g/dL (3.2-5.0); Alkaline Phosphatase 94 U/L (45-117); Anion Gap 7 (5-15); BUN 22 mg/dL (7-18); BUN/Creat Ratio 17.7 RATIO (10-20); Calcium,Total 7.4 mg/dL (8.5-10.1); Chloride 99 mmol/L (98-107); Creatinine, Serum 1.24 mg/dL (0.70-1.30); EST Glomerular Filtration Rate 64 mL/min (>60); Est Glom Filt Rate - Afr Amer 77 mL/min (>60); Globulin 3.7 g/dL (2.2-4.2); Glucose 178 mg/dL (74-106); Potassium 3.1 mmol/L (3.5-5.1); Protein, Total 5.9 g/dL (6.4-8.2); Sodium Level 139 mmol/L (136-145)
[2021-06-21] MEDS: Potassium Chloride Oral Tablet 20 MEQ 40 MEQ PO (10:37)
[2021-06-21 11:10] VITALS: BP 122/83; PULSE 72; RESP 16; TEMP 36.9; O2SAT 95
--- NOTE | 2021-06-21 11:19 | PCM.TXEXTCAR ---
Documented by User: ANGEL Joy 06/21/21 11:30 Diet 06/20/21 13:16 Diet: Carbohydrate Controlled Food consistency:: Regular Liquid Consistency:: Regular/Thin Diet Comments: fortified pudding BID w/ lunch and dinner Routine Orders/Code Status Enema Type: Fleetz Enema Frequency: Daily PRN Suppository Type: Dulcolax 10mg Suppository Frequency: Daily PRN O2 Liters per Minute: 3 O2 Frequency: Continuous Routine Lab Work: CBC and BMP Code Status: Full Code Wound(s) scattered dog scratches - BUE: Wound Type: Bite Suggestions for Active Care Change Position every (hours): 2 Therapies Physical Therapy: Eval and Treat Occupational Therapy: Eval and Treat Problem/Diagnosis (1) Debility: Status: Chronic Allergies/Procedures Done in Hospital Allergies No Known Allergies Allergy (Verified 06/19/21 18:36) Type of Care/Length of Stay Estimated LOS: Convalescent Care Less Than 30 days Type of Care Needed: Skilled Rehab Potential: Good Prognosis: Good Additional Orders/Day of Discharge Day of Discharge: 06/21/21 Dietary and Speech Recommendations Dietitian Recommendations/Changes: Will change diet to Carbohydrate-Controlled (no caloric restriction). Continue 120ml glucerna shake 4 times per day w/ medpass. Will add fortified pudding BID w/ lunch and dinner. Liberalize carbohydrate-controlled diet and offer additional ONS as needed if PO fails at meals. Discharge Plan Admission Admit Date/Time: 06/19/21 22:07 Primary Reason for Your Visit: COPD exac, debility Attending Provider: Jessie Licona Primary Care Provider: Zurdo Esparza Discharge Orders/Prescriptions Prescriptions: New cephalexin 500 mg capsule 500 mg PO Q8H Qty: 15 RF: 0 prednisone 10 mg tablet See Taper mg PO DAILY Qty: 30 RF: 0 Continued midodrine 2.5 mg tablet 2.5 mg PO BID RF: 0 potassium chloride 20 mEq tablet,ER particles/crystals 20 meq PO BID RF: 0 citalopram 40 MG tablet 40 mg PO DAILY RF: 0 levothyroxine 75 MCG tablet 75 mcg PO DAILY RF: 0 omeprazole 40 MG capsule,delayed release(DR/EC) 40 mg PO DAILY RF: 0 ergocalciferol (vitamin D2) 50,000 UNIT capsule 50,000 unit PO FR RF: 0 sitagliptin 100 MG tablet 100 mg PO DAILY RF: 0 melatonin 3 MG capsule 3 mg PO QHS RF: 0 atorvastatin 40 MG tablet 40 mg PO DAILY RF: 0 quetiapine 300 MG tablet 300 mg PO QHS RF: 0 tamsulosin 0.4 MG capsule 0.4 mg PO DAILY@1730 RF: 0 calcium carbonate 500 MG tablet,chewable 500 mg PO BIDCM RF: 0 aspirin 81 MG tablet,chewable 81 mg PO DAILY@0800 RF: 0 magnesium chloride 71.5 MG tablet,delayed release (DR/EC) 71.5 mg PO BID RF: 0 fentanyl 25 mcg/hr patch 72 hour 25 mcg transdermal .Q72H RF: 0 furosemide 40 mg tablet 40 mg PO DAILY RF: 0 Hold Instructions: Resume on 05/26/21. carvedilol 3.125 mg Tablet 3.125 mg PO BID Qty: 60 RF: 0 Referrals / Follow Up: Zurdo Esparza MD [Primary Care Provider] - Disposition Disposition (needs filled in before D/C Order can be placed): Detention Facility Documented by User: Dr. Jessie Licona MD 06/21/21 16:33 Allergies/Procedures Done in Hospital Allergies No Known Allergies Allergy (Verified 06/19/21 18:36) Discharge Plan Admission Admit Date/Time: 06/19/21 22:07 Primary Reason for Your Visit: COPD exac, debility Attending Provider: Jessie Licona Primary Care Provider: Zurdo Esparza Discharge Orders/Prescriptions Prescriptions: New cephalexin 500 mg capsule 500 mg PO Q8H Qty: 15 RF: 0 prednisone 10 mg tablet See Taper mg PO DAILY Qty: 30 RF: 0 Continued midodrine 2.5 mg tablet 2.5 mg PO BID RF: 0 potassium chloride 20 mEq tablet,ER particles/crystals 20 meq PO BID RF: 0 citalopram 40 MG tablet 40 mg PO DAILY RF: 0 levothyroxine 75 MCG tablet 75 mcg PO DAILY RF: 0 omeprazole 40 MG capsule,delayed release(DR/EC) 40 mg PO DAILY RF: 0 ergocalciferol (vitamin D2) 50,000 UNIT capsule 50,000 unit PO FR RF: 0 sitagliptin 100 MG tablet 100 mg PO DAILY RF: 0 melatonin 3 MG capsule 3 mg PO QHS RF: 0 atorvastatin 40 MG tablet 40 mg PO DAILY RF: 0 quetiapine 300 MG tablet 300 mg PO QHS RF: 0 tamsulosin 0.4 MG capsule 0.4 mg PO DAILY@1730 RF: 0 calcium carbonate 500 MG tablet,chewable 500 mg PO BIDCM RF: 0 aspirin 81 MG tablet,chewable 81 mg PO DAILY@0800 RF: 0 magnesium chloride 71.5 MG tablet,delayed release (DR/EC) 71.5 mg PO BID RF: 0 fentanyl 25 mcg/hr patch 72 hour 25 mcg transdermal .Q72H RF: 0 furosemide 40 mg tablet 40 mg PO DAILY RF: 0 Hold Instructions: Resume on 05/26/21. carvedilol 3.125 mg Tablet 3.125 mg PO BID Qty: 60 RF: 0 Referrals / Follow Up: Zurdo Esparza MD [Primary Care Provider] - Disposition Disposition (needs filled in before D/C Order can be placed): Detention Facility
[2021-06-21 11:20] LABS: Bedside Glucose 170 mg/dL (70-110)
--- NOTE | 2021-06-21 11:30 | DS.PCM_ITS ---
Documented by User: ANGEL Joy 06/21/21 11:40 Providers Date of Admission: 06/19/21 Primary Care Physician: Dr. Zurdo Esparza MD Reason For Visit: EXAC OF COPD, DEBILITY Diagnosis Discharge Diagnosis (1) Debility: Status: Chronic Code(s): R53.81 - Other malaise Medications at Discharge Home Medications citalopram 40 mg PO DAILY 12/15/16 levothyroxine 75 mcg PO DAILY 10/09/19 omeprazole 40 mg PO DAILY 10/09/19 ergocalciferol (vitamin D2) 50,000 unit PO FR 11/23/19 sitagliptin 100 mg PO DAILY 08/14/20 melatonin 3 mg PO QHS 10/28/20 aspirin 81 mg PO DAILY@0800 12/02/20 atorvastatin 40 mg PO DAILY 12/02/20 calcium carbonate 500 mg PO BIDCM 12/02/20 magnesium chloride 71.5 mg PO BID 12/02/20 quetiapine 300 mg PO QHS 12/02/20 tamsulosin 0.4 mg PO DAILY@1730 12/02/20 midodrine 2.5 mg tablet 2.5 mg PO BID tab 01/08/21 fentanyl 25 mcg TRANSDERMAL .Q72H 03/14/21 potassium chloride 20 mEq tablet,extended release(part/cryst) 20 meq PO BID tab 04/03/21 furosemide 40 mg PO DAILY 05/15/21 carvedilol 3.125 mg PO BID #60 tab 05/19/21 cephalexin 500 mg PO Q8H #15 cap 06/21/21 prednisone See Taper PO DAILY #30 tab 06/21/21 Hospital Course Operations None Procedures None Summary of Care Provided Minutes Spent on Discharge: 35 Hospital Course: Patient is a 56-year-old male who originally came in with COPD exacerbation as well as debility. Patient will be discharged to [facility] for continued PT and OT as well nursing care. Patient is on 3 L nasal cannula which is patient's baseline. During hospitalization patient received IV ceftriaxone and will be discharged home on Keflex for urinary tract infection. Patient will also be sent to SNF with prednisone taper for COPD exacerbation. Due to patient's fall at home patient underwent hip and pelvic x-ray as well as cervical spine and brain CT which were all negative for acute findings. Physical Exam Const alert, oriented x3 and no apparent distress General Appearance: cooperative and well developed Orientation / Consciousness: awake HEENT normocephalic, head/scalp atraumatic and moist oral mucous membranes Eyes conjunctivae normal and no scleral icterus Neck supple and thyroid normal General: trachea midline Resp normal respiratory effort and clear to auscultation bilaterally Effort and Inspection: able to speak in complete sentences and symmetric chest movement Auscultation: wheezes right lower and diminished lung sounds Cardio regular rate, regular rhythm, S1 normal heart sound and S2 normal heart sound GI normal to inspection, nondistended, normoactive bowel sounds, soft to palpation and non-tender Extremity normal to inspection and no clubbing, cyanosis or edema Skin no rashes or lesions noted General Skin Exam: no breakdown Neuro oriented x3, no focal motor deficits and no sensory deficits noted Sensorium / Orientation: awake and alert Speech: speech normal Psych thought process normal and affect normal Medical Records Data Medical Nutrition Assessment Dietitian: Malnutrition Criteria Met Start: 06/20/21 13: 15 Freq: Status: Active Protocol: Document 06/20/21 13:15 RMA (Rec: 06/20/21 13:16 RMA [id number]) Nutrition Malnutrition Evidence of Malnutrition Exists Yes Malnutrition (severe): Chronic Evidenced By Suboptimal Energy Intake ( Severe),Weight Loss (Severe), Physical Changes (Moderate) Clinical Problem Chronic Disease or Condition Related Malnutrition Etiology Severe protein/calorie malnutrition in the context of chronic disease related to inadequate oral intake, increased energy expenditure and increased nutrition needs Signs/Symptoms as evidenced by ~7% wt loss x 1 month, inadequate oral intake meeting less than 50% estimated nutrition needs captain cannery tender in addition to moderate muscle /fat wasting in the face, orbitals and temporal regions. Status Active Problem Recommendation Dietitian Recommendations/Changes Will change diet to Carbohydrate-Controlled (no caloric restriction). Continue 120ml glucerna shake 4 times per day w/ medpass. Will add fortified pudding BID w/ lunch and dinner. Liberalize carbohydrate- controlled diet and offer additional ONS as needed if PO fails at meals. Weight / BMI Weight Weight: 145 lb 8.081 oz Body Mass Index (BMI) 22.8 ABG / Lab / Microbiology Data Result Diagrams: 06/21/21 07:20 06/21/21 07:20 Laboratory: Laboratory Results - last 24 hr 06/20/21 11:50: POC Glucose 146 H 06/20/21 17:11: POC Glucose 208 H 06/20/21 21:46: POC Glucose 182 H 06/21/21 06:43: POC Glucose 207 H 06/21/21 07:20: WBC 10.8, RBC 4.57 L, Hgb 12.7 L, Hct 41.0, MCV 89.7, MCH 27.8, MCHC 31.0 L, RDW Std Deviation 58.8 H, RDW Coeff of Sophie 19.4 H, Plt Count 297, MPV 11.0, Immature Gran % (Auto) 0.600, Neut % (Auto) 94.8 H, Lymph % (Auto) 2.2 L, [place] % (Auto) 2.3, Eos % (Auto) 0.0, Baso % (Auto) 0.1, Absolute Neuts (auto) 10.3 H, Absolute Lymphs (auto) 0.24 L, Nucleated RBC % 0 06/21/21 07:20: Sodium 139, Potassium 3.1 L, Chloride 99, Carbon Dioxide 33.0 H, Anion Gap 7, BUN 22 H, Creatinine 1.24, Estim Creat Clear Calc 58.60, Est GFR (MDRD) Af Amer 77, Est GFR (MDRD) Non-Af 64, BUN/Creatinine Ratio 17.7, Glucose 178 H, Calcium 7.4 L, Total Bilirubin 0.40, AST 137 H, ALT 232 H, Alkaline Phosphatase 94, Total Protein 5.9 L, Albumin 2.2 L, Globulin 3.7, Albumin/Globulin Ratio 0.6 L 06/21/21 11:10: POC Glucose 170 H Microbiology: Microbiology 06/19/21 19:35 Nasal Secretion SARS-CoV-2 Antigen (Rapid) - Final D/C Instructions Discharge Diet: Low fat / Low cholesterol and 1800 Calorie Control Diet Discharge Activity: Return to Normal Activity Call your doctor if you observe: Fainting spells and Uncontrolled pain Meaningful Use Info Meaningful Use Diagnoses (Choose all that apply): None applicable Discharge Plan Admission Admit Date/Time: 06/19/21 22:07 Primary Reason for Your Visit: COPD exac, debility Attending Provider: Jessie Licona Primary Care Provider: Zurdo Esparza Discharge Orders/Prescriptions Prescriptions: New cephalexin 500 mg capsule 500 mg PO Q8H Qty: 15 RF: 0 prednisone 10 mg tablet See Taper mg PO DAILY Qty: 30 RF: 0 Continued midodrine 2.5 mg tablet 2.5 mg PO BID RF: 0 potassium chloride 20 mEq tablet,ER particles/crystals 20 meq PO BID RF: 0 citalopram 40 MG tablet 40 mg PO DAILY RF: 0 levothyroxine 75 MCG tablet 75 mcg PO DAILY RF: 0 omeprazole 40 MG capsule,delayed release(DR/EC) 40 mg PO DAILY RF: 0 ergocalciferol (vitamin D2) 50,000 UNIT capsule 50,000 unit PO FR RF: 0 sitagliptin 100 MG tablet 100 mg PO DAILY RF: 0 melatonin 3 MG capsule 3 mg PO QHS RF: 0 atorvastatin 40 MG tablet 40 mg PO DAILY RF: 0 quetiapine 300 MG tablet 300 mg PO QHS RF: 0 tamsulosin 0.4 MG capsule 0.4 mg PO DAILY@1730 RF: 0 calcium carbonate 500 MG tablet,chewable 500 mg PO BIDCM RF: 0 aspirin 81 MG tablet,chewable 81 mg PO DAILY@0800 RF: 0 magnesium chloride 71.5 MG tablet,delayed release (DR/EC) 71.5 mg PO BID RF: 0 fentanyl 25 mcg/hr patch 72 hour 25 mcg transdermal .Q72H RF: 0 furosemide 40 mg tablet 40 mg PO DAILY RF: 0 Hold Instructions: Resume on 05/26/21. carvedilol 3.125 mg Tablet 3.125 mg PO BID Qty: 60 RF: 0 Referrals / Follow Up: Zurdo Esparza MD [Primary Care Provider] - Disposition Disposition (needs filled in before D/C Order can be placed): Al[facility] Facility Documented by User: Dr. Jessie Licona MD 06/21/21 16:33 Providers Date of Admission: 06/19/21 Reason For Visit: EXAC OF COPD, DEBILITY Medications at Discharge Home Medications citalopram 40 mg PO DAILY 12/15/16 levothyroxine 75 mcg PO DAILY 10/09/19 omeprazole 40 mg PO DAILY 10/09/19 ergocalciferol (vitamin D2) 50,000 unit PO FR 11/23/19 sitagliptin 100 mg PO DAILY 08/14/20 melatonin 3 mg PO QHS 10/28/20 aspirin 81 mg PO DAILY@0800 12/02/20 atorvastatin 40 mg PO DAILY 12/02/20 calcium carbonate 500 mg PO BIDCM 12/02/20 magnesium chloride 71.5 mg PO BID 12/02/20 quetiapine 300 mg PO QHS 12/02/20 tamsulosin 0.4 mg PO DAILY@1730 12/02/20 midodrine 2.5 mg tablet 2.5 mg PO BID tab 01/08/21 fentanyl 25 mcg TRANSDERMAL .Q72H 03/14/21 potassium chloride 20 mEq tablet,extended release(part/cryst) 20 meq PO BID tab 04/03/21 furosemide 40 mg PO DAILY 05/15/21 carvedilol 3.125 mg PO BID #60 tab 05/19/21 cephalexin 500 mg PO Q8H #15 cap 06/21/21 prednisone See Taper PO DAILY #30 tab 06/21/21 ABG / Lab / Microbiology Data Result Diagrams: 06/21/21 07:20 06/21/21 07:20 Discharge Plan Admission Admit Date/Time: 06/19/21 22:07 Primary Reason for Your Visit: COPD exac, debility Attending Provider: Jessie Licona Primary Care Provider: Zurdo Esparza Discharge Orders/Prescriptions Prescriptions: New cephalexin 500 mg capsule 500 mg PO Q8H Qty: 15 RF: 0 prednisone 10 mg tablet See Taper mg PO DAILY Qty: 30 RF: 0 Continued midodrine 2.5 mg tablet 2.5 mg PO BID RF: 0 potassium chloride 20 mEq tablet,ER particles/crystals 20 meq PO BID RF: 0 citalopram 40 MG tablet 40 mg PO DAILY RF: 0 levothyroxine 75 MCG tablet 75 mcg PO DAILY RF: 0 omeprazole 40 MG capsule,delayed release(DR/EC) 40 mg PO DAILY RF: 0 ergocalciferol (vitamin D2) 50,000 UNIT capsule 50,000 unit PO FR RF: 0 sitagliptin 100 MG tablet 100 mg PO DAILY RF: 0 melatonin 3 MG capsule 3 mg PO QHS RF: 0 atorvastatin 40 MG tablet 40 mg PO DAILY RF: 0 quetiapine 300 MG tablet 300 mg PO QHS RF: 0 tamsulosin 0.4 MG capsule 0.4 mg PO DAILY@1730 RF: 0 calcium carbonate 500 MG tablet,chewable 500 mg PO BIDCM RF: 0 aspirin 81 MG tablet,chewable 81 mg PO DAILY@0800 RF: 0 magnesium chloride 71.5 MG tablet,delayed release (DR/EC) 71.5 mg PO BID RF: 0 fentanyl 25 mcg/hr patch 72 hour 25 mcg transdermal .Q72H RF: 0 furosemide 40 mg tablet 40 mg PO DAILY RF: 0 Hold Instructions: Resume on 05/26/21. carvedilol 3.125 mg Tablet 3.125 mg PO BID Qty: 60 RF: 0 Referrals / Follow Up: Zurdo Esparza MD [Primary Care Provider] - Disposition Disposition (needs filled in before D/C Order can be placed): Alf Facility Charges/Coding Addendum Addendum: Patient seen by Vanesa ORTIZ under my supervision Patient is a 56-year-old male who was admitted through the ED on 06/19/2021 with a complaint of weakness and lightheadedness. He was also found to be hypoxic and was admitted to be managed for acute exacerbation of COPD. Chest x-ray showed a left apical density associated with a small left pleural effusion. CT of the brain showed no acute intracranial pathology. He was on 5 L of oxygen relative to his usual 2 L and he also had some wheezing on examination. He was started on breathing treatment with bronchodilators and IV Solu-Medrol. He was also treated for debility. PT OT work with patient. Patient was deemed as needing skilled therapy. His breathing improved and he was weaned down to his baseline oxygen. He remained stable and was discharged to the [facility] on 06/21/2021. Of note, patient was also found to have UTI and so was treated with antibiotics and was transitioned to Keflex at time of discharge. Patient seen and examined prior to discharge. He had no active complaints. He felt much better than when he came in. Review of systems otherwise negative. Labs and vitals reviewed. Medication reviewed and reconciled. O/E: Const alert, oriented x3 and no apparent distress General Appearance: cooperative and well developed Orientation / Consciousness: awake HEENT normocephalic, head/scalp atraumatic and moist oral mucous membranes Eyes conjunctivae normal and no scleral icterus Neck supple and thyroid normal General: trachea midline Resp normal respiratory effort and clear to auscultation bilaterally Cardio regular rate, regular rhythm, S1 normal heart sound and S2 normal heart sound GI normal to inspection, nondistended, normoactive bowel sounds, soft to palpation and non-tender Extremity normal to inspection and no clubbing, cyanosis or edema Skin no rashes or lesions noted General Skin Exam: no breakdown Neuro oriented x3, no focal motor deficits and no sensory deficits noted Sensorium / Orientation: awake and alert Speech: speech normal Psych affect normal Plan is for [facility] Rest as per Vanesa Arevalo SONG WRITER-C's note, which I have reviewed and endorsed. Visit Charges Inpatient E&M: 15518 Disch Hosp
--- NOTE | 2021-06-21 13:18 | CM.ED ---
MARTY Note MARTY completed HENS for patient. Patient is being discharged to [facility] today. MARTY called Jaylene RN and she said that Akanksha took the call from [facility] however, she sees a d/c on the board for patient. MARTY advised that the PASSR/HENS form was completed by this junior copywriter. Suad PARKER
[2021-06-21 14:15] VITALS: BP 135/70; PULSE 65; RESP 16; TEMP 37.3; O2SAT 96
--- NOTE | 2021-06-21 14:36 | NURSING ---
report was called to Soha at the [facility]
--- NOTE | 2021-06-23 09:24 | CASEMGMT ---
Social Work Note SW received message from binu Moreno at [facility], pt's [place]iernobelén requesting call back ([phone]) regarding update on pt. Roselia also requested discharge paperwork be faxed [phone]. MARTY placed a call to Roselia and left message updating her that [place] [facility] [place]. MARTY faxed discharge paperwork to Roselia. Brittni Weeks WOOD SCRAP HANDLER, FLYING SQUAD WORKER
== END 2021-06-21 15:15 | DRG 190 ==
LOC: ED 21:39 → MS3 22:47
PROVIDERS: Nurse Practitioner Family; Admitting Provider Internal Medicine; Emergency Provider Student in an Organized Health Care Education/Training Program; PCP Internal Medicine; Visit Provider Student in an Organized Health Care Education/Training Program
DX: J44.1 Chronic obstructive pulmonary disease with (acute) exacerbation (principal); J96.21 Acute and chronic respiratory failure with hypoxia; E43 Unspecified severe protein-calorie malnutrition; J90 Pleural effusion, not elsewhere classified; N30.00 Acute cystitis without hematuria; R53.81 Other malaise; E86.0 Dehydration; Z91.14 Patient's other noncompliance with medication regimen; S70.01XA Contusion of right hip, initial encounter; W19.XXXA Unspecified fall, initial encounter; Z91.81 History of falling; Y93.9 Activity, unspecified; Y92.009 Unspecified place in unspecified non-institutional (private) residence as the place of occurrence of the external cause; G89.4 Chronic pain syndrome; Z68.22 Body mass index [BMI] 22.0-22.9, adult; E03.9 Hypothyroidism, unspecified; E11.9 Type 2 diabetes mellitus without complications; E55.9 Vitamin D deficiency, unspecified; R74.8 Abnormal levels of other serum enzymes; F41.9 Anxiety disorder, unspecified; I10 Essential (primary) hypertension; I25.10 Atherosclerotic heart disease of native coronary artery without angina pectoris; I65.29 Occlusion and stenosis of unspecified carotid artery; F32.A Depression, unspecified; K21.9 Gastro-esophageal reflux disease without esophagitis; E11.42 Type 2 diabetes mellitus with diabetic polyneuropathy; Z86.73 Personal history of transient ischemic attack (TIA), and cerebral infarction without residual deficits; Z86.19 Personal history of other infectious and parasitic diseases; Z85.118 Personal history of other malignant neoplasm of bronchus and lung; Z95.1 Presence of aortocoronary bypass graft; Z79.82 Long term (current) use of aspirin; Z79.899 Other long term (current) drug therapy; F17.210 Nicotine dependence, cigarettes, uncomplicated
CPT/HCPCS: 36415; 70450; 71045; 71275; 72125; 73502; 80048; 80053; 80076; 80307; 80329; 81001; 82550; 82962; 84484; 85025; 87077; 87086; 87088; 87186; 87426; 93005; 94640; 97162; 97165; 97530; 97802; 99251; 99285; 99406; J7030; J7050; Q9967; A4216; G0463; G0480